=== PATIENT | female | born 1950 ===

== ENCOUNTER → 2020-02-24 13:49 | Outpatient (BNVA) | payer MEDICARE, SELFPAY | PROVIDERS: PCP Internal Medicine Geriatric Medicine; Visit Provider Physician Assistant | DX: Z09 Encounter for follow-up examination after completed treatment for conditions other than malignant neoplasm (principal) | CPT/HCPCS: 99212 ==

== ENCOUNTER 2020-03-07 13:35 | Emergency (ER) | payer MEDICARE, SELFPAY ==
--- NOTE | 2020-03-07 15:24 | ED.BACK ---
HPI - Back Pain/Injury General Chief Complaint: Back Pain/Injury Stated Complaint: BACK PAIN Time Seen by Provider: 03/07/20 15:08 Source: patient Mode of arrival: ambulatory Limitations: no limitations History of Present Illness HPI Narrative: 69-year-old female presenting to the ED with complaints of lower back pain radiating to her right lower extremity for the past few days worse today. Reports that this is similar to her prior lumbar radiculopathy. Reports she has been taking [id number] naproxen and no symptomatic relief. Reports she ran out of Flexeril. Denies any other symptoms complaints or concerns at this time. Related Data Home Medications Medication Instructions Recorded Confirmed budesonide 0.5 mg/2 mL suspension mg INHALATION 02/16/20 for nebulization diclofenac sodium 1 % topical gel 2 g TOPICAL BID 02/16/20 naproxen 500 mg tablet 500 mg PO BID 02/16/20 tramadol 50 mg tablet 0 mg PO 02/16/20 zolpidem 10 mg tablet 10 mg PO BEDTIME 02/16/20 Previous Rx's Medication Instructions Recorded cyclobenzaprine 10 mg PO TID PRN #14 tab 03/07/20 lidocaine [Lidoderm] 1 patch TOPICAL DAILY #30 ea NS 03/07/20 naproxen 500 mg PO BID PRN #14 tab 03/07/20 oxycodone-acetaminophen [Percocet] 1 tab PO Q6H PRN #14 tab 03/07/20 Allergies Allergy/AdvReac Type Severity Reaction Status Date / Time No Known Allergies Allergy Verified 02/16/20 14:05 Review of Systems Review of Systems: Denies: Trauma; FCS; Rash; H/A; CP; SOB; Neck Pain; N/V; UTI sx; Hematuria; Bowel/Bladder Incont; Focal weakness; Numbness; Radiation; Extr pain or swelling Yes all other systems are reviewed and are negative [facility]LY [facility] Past Medical History Attestation statement: The following information was validated with the patient. Family History Family History Mother Alzheimer disease Hypertension Dementia Father Hypertension Social History Social History Advance Directives: No Advance Directives Information Provided: No Physical Exam Vital Signs: Vital Signs: vital signs have been reviewed as normal and appeared to be correct. Blood pressure normal. Heart rate normal. Respiration rate normal. Temperature normal. Oxygen saturation normal. Appearance: Alert. Oriented X3. No acute distress. Head: Normal external exam. Normocephalic. Atraumatic. No [place] signs noted. No raccoon eyes noted Eyes: PERRLA. EOMI. Conjunctiva and sclera normal. Eyelids normal. ENT: EAC normal. TM's Normal. Pharynx normal. Uvula midline. Moist mucous membranes. No trismus noted. No drooling noted. No muffled voice noted. Neck: Normal inspection. Neck supple. FROM. No adenopathy. Thyroid Normal. No meningeal signs. No neck mass noted. CVS: Normal heart rate and rhythm. Heart sound normal. No murmurs noted. Pulses normal throughout. Respiratory: No respiratory distress. Painless inspiration. Breath sounds normal. No wheezes/rales/rhonchi noted. Chest nontender. No accessory muscle usage noted or decreased air movement noted. Abdomen: Soft and nontender. Bowel sounds normal in all 4 quadrants. No distention noted. No organomegaly noted. No visible injury noted. Back: No CVA tenderness. Full range of motion noted. No obvious deformities, or edema. Mild para-spinal muscular tenderness from lumbar region to coccyx. Full ROM in back and lower extremities. 5/5 strength hip extension/flexion, abduction, adduction. Mild Lumbar pain with hip flexion against resistance. Straight leg raise test positive on right; Straight leg raise test negative on left; Reflexes normal ankle and knee bilaterally; EHL motor strength normal bilaterally Skin: Skin warm and dry. Normal skin color. Normal skin turgor. No rashes/lesions/lacerations noted. Extremities: No lower extremity edema. Extremities exhibit normal range of motion. Extremities nontender. Neuro: Oriented X 3. No motor deficit. No sensory deficit. Reflexes normal. Course Course Course Narrative: Pt c likely muscular pain, but could be herniated disc. Neuro exam shows no deficits. Not c/w AAA/epidural abscess/dissection.No high risk Hx (Incont, fever, immunosupp, recent surgery/LP, coag, signif trauma, wt loss, puls mass, hx/o Ca, TB, or IVDU) to warrant MRI/CT today. Not c/w Pyelo/UTI/kidney stone/spinal fx. Not cauda equina syndrome. Imaging not currently indicated. DC c meds and f/u. Discharge Plan Discharge Clinical Impression: Lumbar radiculopathy Patient Disposition: Home, Self-Care Instructions: Lumbar Radiculopathy (ED) Prescriptions: New cyclobenzaprine 10 mg tablet 10 mg PO TID PRN (Reason: muscle spasm) Qty: 14 RF: 0 naproxen 500 mg tablet 500 mg PO BID PRN (Reason: pain) Qty: 14 RF: 0 oxycodone-acetaminophen [Percocet] 5-325 mg tablet 1 tab PO Q6H PRN (Reason: pain) Qty: 14 RF: 0 lidocaine [Lidoderm] 5 % adhesive patch,medicated 1 patch topical DAILY Qty: 30 RF: 0 Referrals: Name,MD Martín [Primary Care Provider] - 2 days Print Language: Mozambican
[2020-03-07 15:41] VITALS: BP 130/70; PULSE 90; RESP 16; TEMP 36.3; O2SAT 98; BMI 29.2
== END 2020-03-07 15:54 | disposition home or self-care (01) ==
PROVIDERS: Emergency Provider Emergency Medicine; PCP Internal Medicine Geriatric Medicine
DX: M54.16 Radiculopathy, lumbar region (principal)
CPT/HCPCS: 99283; 99284

== ENCOUNTER 2020-06-08 14:55 | Outpatient (REF) | payer MEDICARE, SELFPAY ==
--- NOTE | 2020-06-08 16:00 | MR_ITS ---
MR LUMBAR SPINE WITHOUT CONTRAST CLINICAL INFORMATION: Chronic pain. COMPARISON: Lumbar spine radiographs 12/15/2019. TECHNIQUE: MRI of the lumbar spine was obtained using routine sequences without contrast. FINDINGS: There are 5 nonrib-bearing lumbar-type vertebral bodies. Lumbar alignment is normal. The vertebral body heights are maintained. The disc volumes are preserved. There is no bone marrow edema. There are no acute fractures. There is partial disc desiccation at the L2-L3, L3-L4, and L4-L5 levels. The conus terminates at the L1 level. There is bilateral perinephric stranding. There are no significant soft tissue findings. L1-L2: Disc contour is normal. No central canal stenosis and no foraminal stenosis. L2-L3: Disc contour is normal. No central canal stenosis and no foraminal stenosis. L3-L4: Disc contour is normal. Bilateral facet arthropathy and ligamentum flavum thickening. No central canal stenosis. Mild foraminal encroachment bilaterally. L4-L5: Small annular disc bulge and moderate bilateral facet arthropathy and ligamentum flavum thickening. No central canal stenosis. There is mild foraminal encroachment bilaterally. L5-S1: Small annular disc bulge and mild bilateral facet arthropathy. No central canal stenosis and no foraminal stenosis. MR/MR lumbar spine wo con IMPRESSION: Mild to moderate lumbar spondylosis. No severe central canal stenosis and no severe foraminal stenosis within the lumbar spine. No traversing or exiting nerve root compression.
== END 2020-06-08 14:56 | disposition home or self-care (01) ==
LOC: HO.MRI 14:55
PROVIDERS: Visit Provider Internal Medicine Geriatric Medicine
DX: M54.5 Low back pain (principal); G89.29 Other chronic pain
CPT/HCPCS: 72148

== ENCOUNTER → 2020-06-26 10:50 | Outpatient (BNVA) | payer MEDICARE, SELFPAY | PROVIDERS: PCP Internal Medicine Geriatric Medicine; Visit Provider Orthopaedic Surgery | DX: M79.642 Pain in left hand (principal) | CPT/HCPCS: 99202 ==

== ENCOUNTER 2020-06-28 15:05 | Outpatient (REF) | payer MEDICARE, SELFPAY ==
--- NOTE | ~2020-06-28 | XR_ITS ---
EXAMINATION: XR KNEE, RIGHT CLINICAL INFORMATION: Pain COMPARISON: Previous x-ray November 2019 TECHNIQUE: Three views of the right knee. FINDINGS: Bones and soft tissues are normal. No fracture or joint effusion. Alignment is anatomic. Joint spaces are well maintained. No abnormal soft tissue calcification. XR/XR knee RT 3V IMPRESSION: Normal right knee.
== END 2020-06-28 15:06 | disposition home or self-care (01) ==
LOC: HO.XRAY 15:05
PROVIDERS: PCP Internal Medicine Geriatric Medicine; Visit Provider Student in an Organized Health Care Education/Training Program
DX: M25.561 Pain in right knee (principal)
CPT/HCPCS: 20610; 73562; 99212

== ENCOUNTER 2020-07-05 09:22 | Outpatient (REF) | payer MEDICARE, SELFPAY ==
--- NOTE | ~2020-07-05 | XR_ITS ---
EXAMINATION: XR HAND, LEFT CLINICAL INFORMATION: Left hand pain. Prior [facility] arthroplasty 03/24/2019. COMPARISON: Radiographs left hand 09/14/2019 TECHNIQUE: Left hand is imaged in 4 views. FINDINGS: Small orthopedic plates overlying first and second metacarpals are no longer present. There are 2 punctate metallic soft tissue foreign bodies dorsum hand again seen between second and third metacarpals. There is been prior resection trapezium. Spurring base first metacarpal and distal lateral navicular pole are stable. There is no acute or healing fracture or dislocation or destructive process. No interval joint narrowing or erosive change. Mild narrowing fifth finger PIP and DIP joints again present. XR/XR hand LT min 3V IMPRESSION: 1. No acute or healing fracture or dislocation or destructive process. 2. Postsurgical changes. Hardware overlying first and second metacarpals no longer present.
== END 2020-07-05 09:23 | disposition home or self-care (01) ==
LOC: HO.HOSX 09:22
PROVIDERS: Visit Provider Orthopaedic Surgery
DX: M79.642 Pain in left hand (principal); Z98.890 Other specified postprocedural states
CPT/HCPCS: 73130; J1020; Q3014

== ENCOUNTER → 2020-07-31 19:10 | Outpatient (REF) | payer MEDICARE, SELFPAY | LOC: HO.SL 19:10 | PROVIDERS: PCP Internal Medicine Geriatric Medicine; Visit Provider Internal Medicine Geriatric Medicine | DX: G47.33 Obstructive sleep apnea (adult) (pediatric) (principal); R06.83 Snoring; R40.0 Somnolence | CPT/HCPCS: 95810 ==

== ENCOUNTER → 2020-11-17 13:30 | Outpatient (BNVA) | payer MEDICARE, SELFPAY | PROVIDERS: PCP Internal Medicine Geriatric Medicine; Visit Provider Student in an Organized Health Care Education/Training Program | DX: M25.561 Pain in right knee (principal); M17.11 Unilateral primary osteoarthritis, right knee; Z79.899 Other long term (current) drug therapy | CPT/HCPCS: 20610; 99212 ==

== ENCOUNTER 2021-02-02 08:43 | Outpatient (REF) | payer MEDICARE, SELFPAY ==
--- NOTE | ~2021-02-02 | MR_ITS ---
EXAMINATION: MR KNEE WITHOUT CONTRAST, RIGHT CLINICAL INFORMATION: Pain in right knee. Patient reports anterior right knee pain for 3-4 years, status post injection 6 months ago, and no recent injury. COMPARISON: XR right knee 06/28/2020. TECHNIQUE: MRI of the knee without contrast was performed using routine sequences on a high-field scanner. FINDINGS: MENISCI: Medial Meniscus: There is a horizontal and slightly oblique tear of the posterior horn of the medial meniscus extending to the junction with the body. The tear involves the inner margin inferior surface of the posterior horn. At the junction of the posterior horn and body, the tear involves the peripheral inferior surface. There is some fraying of the free edge of the junction of the posterior horn and root with a possible small flap-type tear (series 5, image 17). Lateral Meniscus: There is a small free edge tear of the body of the lateral meniscus. LIGAMENTS: Cruciate: Intact Collateral: There is slight thickening and mild signal abnormality in the proximal medial collateral ligament consistent with a mild sprain of indeterminate age. There is some intermediate signal in poor definition of the origin of the fibular collateral ligament suggesting a mild sprain of indeterminate age but likely chronic. The lateral supporting structures are otherwise intact. EXTENSOR MECHANISM: Intact. ARTICULAR CARTILAGE/BONE: Patellofemoral Compartment: There are some focal areas of mild cartilage thinning in the medial and lateral facets of the patella. There is patchy mild cartilage thinning in the femoral trochlea. Medial Compartment: Normal. Lateral Compartment: Normal. JOINT FLUID AND BURSAE: Normal. MR/MR knee RT wo con IMPRESSION: 1. Undersurface tear of the posterior horn and body of the medial meniscus. Fraying and possible small flap-type tear of the free edge of the junction of the posterior horn and root. 2. Small free edge tear of the body of the lateral meniscus. 3. Proximal medial and fibular collateral ligament sprains of indeterminate age but likely chronic. 4. Mild patellofemoral arthrosis.
== END 2021-02-02 08:44 | disposition home or self-care (01) ==
LOC: HO.MRI 08:43
PROVIDERS: PCP Internal Medicine Geriatric Medicine; Visit Provider Student in an Organized Health Care Education/Training Program
DX: M25.561 Pain in right knee (principal)
CPT/HCPCS: 73721

== ENCOUNTER → 2021-02-23 07:51 | Outpatient (BNVA) | payer MEDICARE, SELFPAY | PROVIDERS: Visit Provider Physician Assistant | DX: M17.11 Unilateral primary osteoarthritis, right knee (principal) | CPT/HCPCS: 20610; 99212; J1040 ==

== ENCOUNTER 2021-02-27 13:44 | Outpatient (REF) | payer MEDICARE, SELFPAY ==
--- NOTE | ~2021-02-27 | MM_ITS ---
EXAMINATION: MM SCREENING DIGITAL BREAST TOMOSYNTHESIS, BILATERAL CLINICAL INFORMATION: Screening. Asymptomatic. The lifetime risk of breast cancer based on the Tyrer-Cuzick Model is 5%. COMPARISON: Mammography: December 10, 2019 and studies dating back to September 16, 2013 TECHNIQUE: Digital breast tomosynthesis is performed in both the craniocaudal and mediolateral oblique views along with computer-aided detection (CAD). Synthesized 2D images are generated from the tomosynthesis. FINDINGS: There are scattered areas of fibroglandular density (ACR BI-RADS breast composition Category b). There are no significant masses, abnormal calcifications, or other abnormalities. MM/MM tomosynthesis screening BI IMPRESSION: There are no significant changes from prior study. ASSESSMENT: BI-RADS 1: Negative RECOMMENDATION: Routine annual mammography screening. This patient's information was entered into a reminder system with a target due date for their next mammogram.
== END 2021-02-27 13:45 | disposition home or self-care (01) ==
LOC: HO.MAMMO 13:44
PROVIDERS: PCP Internal Medicine Geriatric Medicine; Visit Provider Internal Medicine Geriatric Medicine
DX: Z12.31 Encounter for screening mammogram for malignant neoplasm of breast (principal)
CPT/HCPCS: 77063; 77067

== ENCOUNTER 2021-05-17 12:57 | Emergency (ER) | payer MEDICARE, SELFPAY ==
--- NOTE | ~2021-05-17 | XR_ITS ---
EXAMINATION: XR SHOULDER, LEFT CLINICAL INFORMATION: Pain with limited range of motion. COMPARISON: Radiograph of the left shoulder dated from 03/19/2017. TECHNIQUE: Three views of the left shoulder. FINDINGS: No acute fractures or malalignment. There is mild arthrosis of the acromioclavicular and glenohumeral joints. The surrounding soft tissues are normal. XR/XR shoulder LT min 2V IMPRESSION: Mild arthrosis without acute fractures or malalignment.
[2021-05-17 13:44] VITALS: BP 147/85; PULSE 74; RESP 18; TEMP 36.1; O2SAT 98; BMI 29.5
== END 2021-05-17 20:09 | disposition left against medical advice (07) ==
PROVIDERS: Emergency Provider Emergency Medicine; PCP Internal Medicine Geriatric Medicine
DX: M25.512 Pain in left shoulder (principal)
CPT/HCPCS: 73030; 99282; 99283

== ENCOUNTER 2021-10-05 12:33 | Emergency (ER) | payer MEDICARE, SELFPAY ==
--- NOTE | ~2021-10-05 | CT_ITS ---
EXAMINATION: CT HEAD WITHOUT CONTRAST CLINICAL INFORMATION: Ataxia, headache and weakness COMPARISON: Previous head CT from 2013 TECHNIQUE: Contiguous axial imaging was performed from the skull base to vertex without intravenous administration of contrast. This CT examination was performed using dose optimization techniques as appropriate, variously including the following: *Automated exposure control *Adjustment of mA and/or kV according to patient size (this includes techniques or standardized protocols for targeted exams where dose is matched to indication/reason for exam; i.e. extremities or head) *Use of iterative reconstruction technique DLP: 590 mGy-cm FINDINGS: There is no evidence of acute intracranial hemorrhage or territorial infarction. No abnormal mass effect or midline shift is seen. Ansari to white matter differentiation is well preserved. No extra-axial fluid collections are identified. The ventricles are normal in size. There is no abnormal attenuation within the brain parenchyma. The osseous structures and soft tissues are normal. The mastoid air cells and visualized portions of the paranasal sinuses are well aerated. CT/CT head/brain wo con IMPRESSION: Unremarkable exam.
[2021-10-05 12:37] VITALS: BP 188/93; PULSE 59; RESP 18; TEMP 36.8; O2SAT 100; BMI 30.2
--- NOTE | 2021-10-05 12:48 | ED_ITS ---
HPI - Dizziness General Chief Complaint: Dizziness Stated Complaint: Dizziness/Nausea/Weakness Time Seen by Provider: 10/05/21 12:46 Source: patient Mode of arrival: wheelchair Limitations: no limitations History of Present Illness HPI Narrative: 70 yo female with history of osteoarthritis, tendonitis who presents to the ER from home with acute onset of dizziness when she woke up this morning at 10am. She was in her normal state of health when she went to bed last night. She states when she woke up and sat up on the end of her bed she had sensation of the room spinning and this was associated with nausea and a slight headache and photosensitivity. She felt generally weak and unsteady on her feet. She reports some generalized body aches as well. She denies any focal weakness, numbness or tingling. She denies any speech or swallowing problems. She has never had dizziness like this before. On arrival to the ER patient had to be put in a wheelchair because of her dizziness. She has some photosensitivity and nausea but has not vomited. She is hypertensive 188/93 - she is not on any anti-hypertensives and reports her BP has been elevated on doctor visits and it has been normal at times as well so she was not started on any meds. MD elicited complaint: dizziness and other (headache) Onset (ago): hour(s) (3) Timing: sudden onset Severity: moderate Description: room spinning History of similar symptoms: No Exacerbating factors: movement/ambulation and change in body position Relieving factors: nothing Associated symptoms: nausea and weakness Related Data Home Medications Medication Instructions Recorded Confirmed budesonide 0.5 mg/2 mL suspension mg INHALATION 02/16/20 11/17/20 for nebulization diclofenac sodium 1 % topical gel 2 g TOPICAL BID 02/16/20 11/17/20 zolpidem 10 mg tablet 10 mg PO BEDTIME 02/16/20 11/17/20 acetaminophen 650 mg 650 mg PO Q12H PRN 11/17/20 11/17/20 tablet,extended release (Tylenol Arthritis Pain) Previous Rx's Medication Instructions Recorded cyclobenzaprine 10 mg tablet 10 mg PO TID PRN #14 tab 03/07/20 naproxen 500 mg tablet 500 mg PO BID PRN #14 tab 03/07/20 meclizine 25 mg tablet 25 mg PO BID PRN #10 tab 10/05/21 Allergies Allergy/AdvReac Type Severity Reaction Status Date / Time No Known Allergies Allergy Verified 02/23/21 08:02 Review of Systems Review of Systems: Constitutional: No Fever, No Chills ENT/Mouth: No sore throat, No Rhinorrhea, No Swallowing Difficulty Eyes: No Eye Pain, No Swelling, No Redness, No vision changes Cardiovascular: No Chest Pain, No SOB, No Orthopnea, No Edema Respiratory: No Cough, No Sputum, No Wheezing, No dyspnea Gastrointestinal: + Nausea, No Vomiting, No Diarrhea, No abdominal Pain, No Hematochezia, No Melena Genitourinary: No Dysuria, No Urinary Frequency, No Hematuria Musculoskeletal: No joint pain, No Myalgias Skin: No Skin Lesions, No rash Neuro: + Weakness, No Numbness, + Dizziness, + Headache Psych: No Anxiety/Panic, No Depression Heme/Lymph: No Bruising, No Lymphadenopathy Endocrine: No Polyuria, No Polydipsia PMFSH Past Medical History Medical History (Updated 10/05/21 @ 15:49 by YOON Almeida) Arthritis Family History Family History Mother Alzheimer disease Hypertension Dementia Father Hypertension Social History Social History (Updated 02/23/21 @ 08:02 by Diallo Angulo) Alcohol intake: never Patient Tobacco Use Status: Never used Tobacco e-Cigarette/Vaping Use: Never Used Advance Directives: Yes Advance Directives Information Provided: Yes Advance Directives on File: No Current occupational status: retired Current occupation: rt handed Physical Exam Vital Signs: Vital Signs: Last Vital Signs Temp 98.3 F 10/05/21 12:37 Pulse 68 10/05/21 16:03 Resp 16 10/05/21 16:03 BP 168/78 H 10/05/21 16:03 Pulse Ox 100 10/05/21 13:04 BMI result Body Mass Index 30.2 Appearance: Alert. Oriented X3. No acute distress. Eyes: Pupils equal, round and reactive to light. EOMI, no nystagmus. ENT: Pharynx normal. Tympanic membranes are normal bilaterally. Neck: Normal inspection. Neck supple. CVS: Normal heart rate and rhythm. Pulses normal. Respiratory: No respiratory distress. Breath sounds normal. Abdomen: Soft and nontender. +BS x4 Skin: Skin warm and dry. Normal skin color. Normal skin turgor. No rashes. Extremities: No lower extremity edema. Neuro: Oriented X 3. No motor deficit. No sensory deficit. Strength equal and symmetrical throughout. Patient steady on her feet with assist of 1. Speech and cognition are normal, cranial nerves 2-12 are intact. Course Course Course Narrative: 70-year-old female with no significant medical history presents to the ER with acute onset of dizziness, headache with photosensitivity and nausea when she woke up this morning. Her neuro exam is nonfocal. NIH of 0. She is hypertensive on arrival with systolic blood pressures in the 180s, no history of hypertension. Will get CT scan of her head, metabolic workup, with attic vital signs, check COVID and flu. She feels like the room is spinning, will treat for possible vertigo and reassess. Low suspicion for posterior stroke given her other symptoms including generalized weekends, body aches, photosensitivity, nausea. Reevaluation(s) Reevaluation #1: CT head is normal. Labs are normal. She was treated with meclizine and Zofran with significant improvement. She is steady on her feet and feels better. Her blood pressure improved on its own. At this time she is stable for discharge home with p.r.n. meclizine and outpatient follow-up. She was advised come back to the ER for dizziness worsened, or if she were to develop any other concerning signs or symptoms. [facility] - Dizziness Medical Records Attestation: I reviewed the patient's medical records. Lab Data Attestation: I reviewed the patient's lab results. Result diagrams: 10/05/21 13:12 10/05/21 13:12 Labs: Lab Results 10/05/21 10/05/21 10/05/21 Range/Units 13:06 13:06 13:12 WBC 7.4 (4.8-10.8) X10*3/uL RBC 4.42 (4.20-5.50) X10*6/uL Hgb 12.4 (12.0-16.0) g/dl Hct 37.7 (37.0-47.0) % MCV 85.3 (80.0-98.0) fL MCH 28.1 (27.0-33.0) pg MCHC 32.9 (31.0-35.0) g/dl RDW 13.0 (11.0-16.0) % Plt Count 302 (160-400) X10*3/uL MPV 8.7 L (9.4-12.3) fL Immature Gran % (Auto) 0.4 (0.0-0.4) % Neut % (Auto) 74.9 H (45-73) % Lymph % (Auto) 17.4 L (20-40) % [place] % (Auto) 5.3 (2-11) % Eos % (Auto) 1.6 (0-4) % Baso % (Auto) 0.4 (0-2) % Lymph # (Auto) 1.3 (1.2-4.9) X10*3/uL [place] # (Auto) 0.4 (0.1-1.2) X10*3/uL Eos # (Auto) 0.1 (0.0-0.4) X10*3/uL Baso # (Auto) 0.0 (0.0-0.2) X10*3/uL Abs Immat Gran (auto) 0.03 (0.00-0.03) X10*3/uL Absolute Neuts (auto) 5.6 (2.0-8.3) x10*3/uL Absolute Nucleated RBC 0.000 (0.0-0.012) X10*3/uL Nucleated RBC % (auto) 0.0 (0.0-0.2) /100WBC Sodium (135-145) mmol/L Potassium (3.3-5.1) mmol/L Chloride (96-108) mmol/L Carbon Dioxide (22-29) mmol/L Anion Gap (12-20) BUN (9-16) mg/dL Creatinine (0.5-1.4) mg/dL Estim Creat Clear Calc Estimated GFR Random Glucose (60-115) mg/dL Calcium (8.4-10.2) mg/dL Magnesium (1.6-2.6) mg/dL Total Bilirubin (0.0-1.0) mg/dL Direct Bilirubin (0.0-0.5) mg/dL AST (5-31) U/L ALT (0-31) U/L Alkaline Phosphatase (39-117) U/L Total Protein (6.5-8.0) g/dL Albumin (3.5-5.0) g/dL COVID-19 (ENZO) Negative (Negative) COVID-19 Clin Com See Note Influenza Type A (ANASTASIIA) Negative (Negative) Influenza Type B (ANASTASIIA) Negative (Negative) Influenza A & B Note See Note 10/05/21 Range/Units 13:12 WBC (4.8-10.8) X10*3/uL RBC (4.20-5.50) X10*6/uL Hgb (12.0-16.0) g/dl Hct (37.0-47.0) % MCV (80.0-98.0) fL MCH (27.0-33.0) pg MCHC (31.0-35.0) g/dl RDW (11.0-16.0) % Plt Count (160-400) X10*3/uL MPV (9.4-12.3) fL Immature Gran % (Auto) (0.0-0.4) % Neut % (Auto) (45-73) % Lymph % (Auto) (20-40) % [place] % (Auto) (2-11) % Eos % (Auto) (0-4) % Baso % (Auto) (0-2) % Lymph # (Auto) (1.2-4.9) X10*3/uL [place] # (Auto) (0.1-1.2) X10*3/uL Eos # (Auto) (0.0-0.4) X10*3/uL Baso # (Auto) (0.0-0.2) X10*3/uL Abs Immat Gran (auto) (0.00-0.03) X10*3/uL Absolute Neuts (auto) (2.0-8.3) x10*3/uL Absolute Nucleated RBC (0.0-0.012) X10*3/uL Nucleated RBC % (auto) (0.0-0.2) /100WBC Sodium 139 (135-145) mmol/L Potassium 4.4 (3.3-5.1) mmol/L Chloride 107 (96-108) mmol/L Carbon Dioxide 25 (22-29) mmol/L Anion Gap 11 L (12-20) BUN 14 (9-16) mg/dL Creatinine 0.81 (0.5-1.4) mg/dL Estim Creat Clear Calc 55.7 Estimated GFR > 60 Random Glucose 145 H (60-115) mg/dL Calcium 9.4 (8.4-10.2) mg/dL Magnesium 2.0 (1.6-2.6) mg/dL Total Bilirubin 0.4 (0.0-1.0) mg/dL Direct Bilirubin < 0.2 (0.0-0.5) mg/dL AST 13 (5-31) U/L ALT 14 (0-31) U/L Alkaline Phosphatase 62 (39-117) U/L Total Protein 7.4 (6.5-8.0) g/dL Albumin 4.2 (3.5-5.0) g/dL COVID-19 (ENZO) (Negative) COVID-19 Clin Com Influenza Type A (ANASTASIIA) (Negative) Influenza Type B (ANASTASIIA) (Negative) Influenza A & B Note Critical Care Time Critical Care Time Critical Care Time: No Discharge Plan Discharge Clinical Impression: Headache, Dizziness Patient Disposition: Home, Self-Care Instructions: Acute Headache (DC), Dizziness (ED) Additional Instructions: Your CT scan today was normal. Your labs workup was unremarkable. Take the prescribed medication as needed for dizziness. Recommend taking Motrin and or Tylenol as needed for headaches. Rest and drink plenty of fluids. Follow-up with your doctor next week If you develop new or worsening symptoms call 911 or come back to the ER for further evaluation. Prescriptions: New meclizine 25 mg tablet 25 mg PO BID PRN (Reason: dizziness) Qty: 10 0RF No Action cyclobenzaprine 10 mg tablet 10 mg PO TID PRN (Reason: muscle spasm) Qty: 14 0RF naproxen 500 mg tablet 500 mg PO BID PRN (Reason: pain) Qty: 14 0RF budesonide 0.5 mg/2 mL suspension for nebulization inhalation 0RF diclofenac sodium 1 % gel 2 g topical BID 0RF zolpidem 10 mg tablet 10 mg PO BEDTIME 0RF acetaminophen [Tylenol Arthritis Pain] 650 mg tablet extended release 650 mg PO Q12H [id number] Interventions: ED Discharge Assessment Last Done: 10/05/21 16:04 Discharge Date/Time: 10/05/21 16:08
[2021-10-05 13:04] VITALS: BP 164/92; PULSE 57; RESP 16; O2SAT 100
[2021-10-05] MEDS: 0.9 % Sodium Chloride 1,000 ML 999 ML IVCONT (13:12)
[2021-10-05 13:16] LABS: MANUAL DIFF FLAG NO
[2021-10-05 13:25] LABS: Basophils Percent Auto 0.4 % (0-2); Eosinophils Absolute Auto 0.1 X10*3/uL (0.0-0.4); Eosinophils Percent Auto 1.6 % (0-4); Hematocrit 37.7 % (37.0-47.0); Hemoglobin 12.4 g/dl (12.0-16.0); Imm Gran Abs Auto 0.03 X10*3/uL (0.00-0.03); Imm Gran Pct Auto 0.4 % (0.0-0.4); Lymphocytes Absolute Auto 1.3 X10*3/uL (1.2-4.9); Lymphocytes Percent Auto 17.4 % (20-40); Mean Corpuscular HGB Conc 32.9 g/dl (31.0-35.0); Mean Corpuscular Hemoglobin 28.1 pg (27.0-33.0); Mean Corpuscular Volume 85.3 fL (80.0-98.0); Mean Platelet Volume 8.7 fL (9.4-12.3); Monocytes Absolute Auto 0.4 X10*3/uL (0.1-1.2); Monocytes Percent Auto 5.3 % (2-11); Neutrophils Absolute Auto 5.6 x10*3/uL (2.0-8.3); Neutrophils Percent Auto 74.9 % (45-73); Platelet Count 302 X10*3/uL (160-400); Red Blood Count 4.42 X10*6/uL (4.20-5.50); White Blood Count 7.4 X10*3/uL (4.8-10.8)
[2021-10-05 13:33] LABS: Influenza A Negative (Negative); Influenza B2 Negative (Negative)
[2021-10-05 13:34] LABS: COVID-19 Test Negative (Negative); IDNOW Serial# 55D5AD1C
[2021-10-05 13:44] LABS: Alanine Aminotransferase 14 U/L (0-31); Albumin Level 4.2 g/dL (3.5-5.0); Alkaline Phosphatase 62 U/L (39-117); Anion Gap 11 (12-20); Aspartate Amino Transferase 13 U/L (5-31); Bilirubin Direct < 0.2 mg/dL (0.0-0.5); Bilirubin Total 0.4 mg/dL (0.0-1.0); Blood Urea Nitrogen 14 mg/dL (9-16); Calcium 9.4 mg/dL (8.4-10.2); Carbon Dioxide 25 mmol/L (22-29); Chloride 107 mmol/L (96-108); Creatinine Clr Calc Pharmacy 55.7; Estimated Glomerular Filt Rate > 60; Glucose Random 145 mg/dL (60-115); Potassium 4.4 mmol/L (3.3-5.1); Sodium 139 mmol/L (135-145); Total Protein 7.4 g/dL (6.5-8.0)
[2021-10-05] MEDS: Meclizine HCl 25 MG TABLET 50 MG PO (14:31)
[2021-10-05] MEDS: ondansetron HCL 4 MG/2 ML VIAL IVPUSH (14:31)
[2021-10-05 16:03] VITALS: BP 168/78; PULSE 68; RESP 16
== END 2021-10-05 16:08 | disposition home or self-care (01) ==
PROVIDERS: Physician Assistant; Emergency Provider Emergency Medicine Emergency Medical Services; PCP Internal Medicine Geriatric Medicine
DX: R42 Dizziness and giddiness (principal); R51.9 Headache, unspecified; R03.0 Elevated blood-pressure reading, without diagnosis of hypertension; Z20.822 Contact with and (suspected) exposure to COVID-19
CPT/HCPCS: 70450; 80048; 80076; 83735; 85025; 87502; 87635; 96361; 96374; 99281; 99284; J2405

== ENCOUNTER 2021-10-08 08:04 | Outpatient (REF) | payer OTHER, SELFPAY ==
--- NOTE | ~2021-10-08 | XR_ITS ---
EXAMINATION: KNEE X-RAY CLINICAL INFORMATION: Pain COMPARISON: Previous x-rays from 2019 2020 TECHNIQUE: Standing AP view of both knees and lateral and sunrise view of the right knee FINDINGS: Right: Bone alignment is normal. No fracture or dislocation is seen. Joint spaces are normal. There is no joint effusion. Standing AP view of the left knee is unremarkable. XR/XR knee RT 2V IMPRESSION: Unremarkable exam.
--- NOTE | ~2021-10-08 | XR_ITS ---
EXAMINATION: KNEE X-RAY CLINICAL INFORMATION: Pain COMPARISON: Previous x-rays from 2019 2020 TECHNIQUE: Standing AP view of both knees and lateral and sunrise view of the right knee FINDINGS: Right: Bone alignment is normal. No fracture or dislocation is seen. Joint spaces are normal. There is no joint effusion. Standing AP view of the left knee is unremarkable. XR/XR knee standing BI IMPRESSION: Unremarkable exam.
== END 2021-10-08 08:05 | disposition home or self-care (01) ==
LOC: HO.HOSX 08:04
PROVIDERS: Visit Provider Physician Assistant
DX: M17.0 Bilateral primary osteoarthritis of knee (principal)
CPT/HCPCS: 20610; 73560; 73565; 99212; J1040

== ENCOUNTER 2021-11-05 11:44 | Emergency (ER) | payer OTHER, SELFPAY ==
--- NOTE | 2021-11-05 | ECG_ITS ---
Test Reason : left arm numbness Blood Pressure : / mmHG Vent. Rate : 076 BPM Atrial Rate : 076 BPM P-R Int : 120 ms QRS Dur : 066 ms QT Int : 380 ms P-R-T Axes : 039 -04 031 degrees QTc Int : 427 ms Normal sinus rhythm Low voltage QRS Cannot rule out Anterior infarct (cited on or before 05-NOV-2021) Abnormal ECG When compared with ECG of 27-MAR-2019 11:33, No significant change was found Referred By: Generic ED Physician Electronically Signed By:OSCAR LANDIN MD
--- NOTE | ~2021-11-05 | CT_ITS ---
EXAMINATION: CT ANGIOGRAM NECK CLINICAL INFORMATION: Neck pain, gait disturbance and visual changes. COMPARISON: CT scan of the head and cervical spine earlier 11/05/2021. TECHNIQUE: Test bolus series followed by intravenous administration 17 mL of Omnipaque 350. Helical imaging was performed in the axial plane from the mediastinum to the skull vertex. A delayed postcontrast CT scan of the head was obtained. The degree of stenosis is based off NASCET criteria. The data was processed at the dairy manufacturing technologist workstation for generation of MIP images. Three-dimensional volume rendered reformatted images were also generated at an offline 3-D workstation. This CT examination was performed using dose optimization techniques as appropriate, variously including the following: *Automated exposure control *Adjustment of mA and/or kV according to patient size (this includes techniques or standardized protocols for targeted exams where dose is matched to indication/reason for exam; i.e. extremities or head) *Use of iterative reconstruction technique DLP: 1464 mGy-cm. FINDINGS: CT Head: There is no evidence of acute intracranial hemorrhage or territorial infarction. No abnormal mass-effect or midline shift is seen. Ansari to white matter differentiation is well preserved. No extra-axial fluid collections are identified. There is no abnormal enhancement. The ventricles are normal in size. Brain parenchymal attenuation is unremarkable. There are no acute osseous or soft tissue abnormalities. There is hyperostosis frontalis interna. The nasal septum is deviated to the right and there is a right-sided bony nasal septal spur. The mastoid air cells and visualized portions of the paranasal sinuses are well-aerated. CTA Neck: There is a classic configuration of the arch of the aorta. There are minimal atheromatous calcifications of the aortic arch. There are mild atheromatous calcifications at the origin of the left common carotid artery. The subclavian arteries are patent. The common carotid arteries are patent bilaterally. There are mild atheromatous calcifications of the carotid bifurcations, but there are no significant stenoses. The internal carotid arteries are patent with uniform caliber extending intracranially. The origins of both vertebral arteries are well seen and appear normal. Both vertebral arteries are widely patent and demonstrate good opacification throughout their cervical course. The right vertebral artery is slightly dominant. Nonvascular: There is a 5 mm nodule along the pleura in the left upper lobe (image 111/119, series 5). There is a 5 mm calcified granuloma in the left upper lobe posterolaterally (image 106/119, series 5). The thyroid gland appears normal. There is no cervical lymphadenopathy. There are mild spondylitic and facet arthropathic changes in the cervical spine. The study redemonstrates a right tracheal diverticulum. CTA Head: The intracranial internal carotid arteries and their bifurcations appear normal. The middle and anterior cerebral arteries bilaterally demonstrate normal caliber with no evidence of focal stenosis, aneurysm or vascular malformation. There is normal arborization of the middle cerebral artery branches. There is an azygous A2 segment of anterior cerebral arteries, a normal variant In the posterior circulation, the right vertebral artery is dominant. The vertebral arteries intradurally have uniform caliber. The basilar artery appears normal. There is slight irregular caliber of the P1 segment of the left posterior cerebral artery. The right posterior cerebral artery has normal caliber. The venous sinuses opacify normally. CT/CT angio head neck IMPRESSION: CT head and neck: 1. There are no acute bleeds or territorial infarcts. There are no masses or areas of abnormal enhancement. 2. 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 3. There are 5 mm nodules in the left upper lobe. According to the UPDATED 2017 Fleischner Society recommendations, the advised follow-up imaging for solid nodules < 6 mm is: LOW RISK PATIENT: No routine follow-up. HIGH RISK PATIENT: Optional CT at 12 months. CTA head and neck: 1. There is mild atheromatous calcification at multiple levels in the neck, but there are no flow-limiting stenoses. 2. Intracranially there is mild narrowing of the P1 segment of the left posterior cerebral artery. Otherwise there are no focal stenoses, aneurysms or vascular malformations.
--- NOTE | ~2021-11-05 | CT_ITS ---
EXAMINATION: CT CERVICAL SPINE WITHOUT CONTRAST CLINICAL INFORMATION: Dizziness and neck pain COMPARISON: None TECHNIQUE: Axial images through the cervical spine without contrast. Sagittal and coronal reconstructions on the technologist workstation were performed. This CT examination was performed using dose optimization techniques as appropriate, variously including the following: *Automated exposure control *Adjustment of mA and/or kV according to patient size (this includes techniques or standardized protocols for targeted exams where dose is matched to indication/reason for exam; i.e. extremities or head) *Use of iterative reconstruction technique DLP: 341 mGy-cm FINDINGS: Bone alignment is normal. No fracture or dislocation is seen. There is degenerative spondylosis from C3-C4 to C6-C7. Disc spaces are normal. Prevertebral soft tissues are normal. 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 Superior mediastinum is otherwise normal. The visualized lung apices are clear. CT/CT cervical spine wo con IMPRESSION: Degenerative changes. Fleischner guidelines were followed.
--- NOTE | ~2021-11-05 | CT_ITS ---
EXAMINATION: CT HEAD WITHOUT CONTRAST CLINICAL INFORMATION: Dizziness and blurry vision COMPARISON: Previous head CT most recent September 2021 TECHNIQUE: Contiguous axial imaging was performed from the skull base to vertex without intravenous administration of contrast. This CT examination was performed using dose optimization techniques as appropriate, variously including the following: *Automated exposure control *Adjustment of mA and/or kV according to patient size (this includes techniques or standardized protocols for targeted exams where dose is matched to indication/reason for exam; i.e. extremities or head) *Use of iterative reconstruction technique DLP: 568 mGy-cm FINDINGS: There is no evidence of acute intracranial hemorrhage or territorial infarction. No abnormal mass effect or midline shift is seen. Ansari to white matter differentiation is well preserved. No extra-axial fluid collections are identified. The ventricles are normal in size. There is no abnormal attenuation within the brain parenchyma. The osseous structures and soft tissues are normal. The mastoid air cells and visualized portions of the paranasal sinuses are well aerated. CT/CT head/brain wo con IMPRESSION: Unremarkable exam.
[2021-11-05 11:50] VITALS: BP 147/90; PULSE 83; RESP 18; TEMP 36.8; O2SAT 97; BMI 29.2
[2021-11-05 12:05] LABS: MANUAL DIFF FLAG NO
[2021-11-05 12:07] LABS: Basophils Percent Auto 0.5 % (0-2); Eosinophils Absolute Auto 0.2 X10*3/uL (0.0-0.4); Eosinophils Percent Auto 2.3 % (0-4); Hematocrit 36.9 % (37.0-47.0); Hemoglobin 12.1 g/dl (12.0-16.0); Imm Gran Abs Auto 0.02 X10*3/uL (0.00-0.03); Imm Gran Pct Auto 0.3 % (0.0-0.4); Lymphocytes Absolute Auto 2.2 X10*3/uL (1.2-4.9); Lymphocytes Percent Auto 30.2 % (20-40); Mean Corpuscular HGB Conc 32.8 g/dl (31.0-35.0); Mean Corpuscular Hemoglobin 27.8 pg (27.0-33.0); Mean Corpuscular Volume 84.6 fL (80.0-98.0); Mean Platelet Volume 8.2 fL (9.4-12.3); Monocytes Absolute Auto 0.5 X10*3/uL (0.1-1.2); Monocytes Percent Auto 6.3 % (2-11); Neutrophils Absolute Auto 4.4 x10*3/uL (2.0-8.3); Neutrophils Percent Auto 60.4 % (45-73); Platelet Count 313 X10*3/uL (160-400); Red Blood Count 4.36 X10*6/uL (4.20-5.50); Red Cell Distribution Width 13.4 % (11.0-16.0); White Blood Count 7.3 X10*3/uL (4.8-10.8)
[2021-11-05 12:29] LABS: Anion Gap 13 (12-20); Blood Urea Nitrogen 18 mg/dL (9-16); Calcium 9.2 mg/dL (8.4-10.2); Carbon Dioxide 25 mmol/L (22-29); Chloride 106 mmol/L (96-108); Creatinine Clr Calc Pharmacy 50.2; Estimated Glomerular Filt Rate > 60; Glucose Random 106 mg/dL (60-115); Potassium 4.3 mmol/L (3.3-5.1); Sodium 140 mmol/L (135-145)
[2021-11-05 14:54] VITALS: BP 155/88; PULSE 62; RESP 18; TEMP 36.7; O2SAT 98
--- NOTE | 2021-11-05 15:12 | ED_ITS ---
HPI - General Adult General Chief complaint: General Medical Stated complaint: Head Pain Time Seen by Provider: 11/05/21 14:48 Source: patient Mode of arrival: ambulatory Limitations: language barrier History of Present Illness HPI narrative: 71-year-old female presents for 2 months of left-sided headache, left eye pain, left anterior neck pain radiating into left shoulder. The pain feels like a burning pain, in patient has felt intermittently dizzy. The pain is worse when she lies down. Patient has had blurry vision in her left eye. She uses reading glasses, does not use contacts. Patient has pain with eye movement. States she has felt intermittently dizzy for 2 months. States that her gait has been off balance for the last month. Denies chest pain, denies shortness of breath, denies falls, denies trauma, denies syncope or loss of consciousness. Patient is not on blood thinners. Related Data Home Medications Medication Instructions Recorded Confirmed budesonide 0.5 mg/2 mL suspension mg inhalation 02/16/20 11/17/20 for nebulization diclofenac sodium 1 % topical gel 2 g topical BID 02/16/20 11/17/20 zolpidem 10 mg tablet 10 mg PO BEDTIME 02/16/20 11/17/20 acetaminophen 650 mg 650 mg PO Q12H PRN 11/17/20 11/17/20 tablet,extended release (Tylenol Arthritis Pain) Previous Rx's Medication Instructions Recorded cyclobenzaprine 10 mg tablet 10 mg PO TID PRN muscle spasm #14 03/07/20 tabs naproxen 500 mg tablet 500 mg PO BID PRN pain #14 tabs 03/07/20 meclizine 25 mg tablet 25 mg PO BID PRN dizziness #10 tabs 10/05/21 prednisone 20 mg tablet 20 mg PO DAILY 9 days #18 tabs 11/05/21 Allergies Allergy/AdvReac Type Severity Reaction Status Date / Time No Known Allergies Allergy Verified 10/08/21 13:38 Review of Systems Constitutional: Constitutional: Denies body ache(s), Denies chills, Denies fatigue, Denies fever(s), Reports headache(s), Denies malaise and Denies weakness Eyes: Eyes: Reports blurry vision and Denies diplopia ENT: Reports Normal hearing present, Denies vertigo, Reports dizziness, Denies otalgia, Reports headache(s), Denies mouth pain, Reports neck pain, Denies post nasal drip, Denies sinus pain, Denies sinus pressure, Denies sore throat and Denies throat swelling Cardiovascular: Cardiovascular: Denies chest pain, Denies syncope, Denies leg edema, Denies lightheadedness, Denies Loss of Consciousness, Denies palpitations and Denies dyspnea Respiratory: Respiratory: Denies chest congestion, Denies cough and Denies dyspnea Gastrointestinal: Gastrointestinal: Denies abdominal pain, Denies hematochezia, Denies constipation, Denies diarrhea, Denies nausea and Denies vomiting Musculoskeletal: Musculoskeletal: Reports abnormal gait and Reports neck pain Neurologic: Reports Normal hearing present, Denies Abnormal speech present, Reports abnormal gait, Denies confusion, Denies vertigo, Reports dizziness, Denies syncope, Reports headache(s), Denies Sensory deficit (Neuro) and Denies weakness Psychiatric: Psychiatric: Denies anxiety, Denies confusion and Denies depression Endocrine: Endocrine: Denies fatigue and Denies palpitations Allergic/Immunologic: Allergic/Immunologic: Denies throat swelling PMFSH Past Medical History Medical History Arthritis Family History Family History Mother Alzheimer disease Hypertension Dementia Father Hypertension Social History Social History Alcohol intake: never Patient Tobacco Use Status: Never used Tobacco e-Cigarette/Vaping Use: Never Used Advance Directives: No Advance Directives Information Provided: No Current occupational status: retired Current occupation: rt handed Physical Exam ED Vital Signs: Vital Signs - 24 hr 11/05/21 11:50 11/05/21 14:54 Temperature 98.2 F 98.0 F Pulse Rate 83 62 Respiratory Rate 18 18 Blood Pressure 147/90 H 155/88 H Pulse Oximetry 97 98 Oxygen Delivery Method Room Air Room Air BMI result Body Mass Index 29.2 Const General: No confusion Nutritional Appearance: well nourished Orientation/consciousness: patient oriented x3 and No confusion Limitations: no limitations HENMT Head: Yes normal to inspection, Yes normocephalic and Yes atraumatic Ears: hearing grossly normal bilaterally, external ears normal, TM's normal bilaterally and EAC's normal General nose exam: Normal external nose present Face and sinus: Yes normal facial exam and Yes sinuses nontender Mouth: Normal oral and palatal mucosa present Throat: Yes posterior oropharynx normal Eyes Conjunctivae: conjunctivae normal Pupils: Equal, round and reactive pupils present EOM: EOMs intact bilaterally and No Nystagmus present Neck Neck: Yes full ROM, Yes no lymphadenopathy and Yes supple Resp Effort & Inspection: normal respiratory effort and able to speak in complete sentences Auscultation: clear to auscultation bilaterally, no crackles, no rales, no rhonchi and no wheezes Cardio Rate: regular rate Rhythm: regular rhythm Heart sounds: S1 normal heart sound present and S2 normal heart sound present GI Inspection: Yes normal to inspection Palpation (GI): Soft to palpation, nontender, no guarding and not rigid Percussion: Yes normal to percussion Auscultation: normal bowel sounds Skin General skin exam: no rashes or lesions noted Neuro General: patient oriented x3, gait normal and No confusion Cranial nerves: Yes CN's II-XII intact bilaterally, Yes Facial sensation intact/muscles of mastication intact, Yes Equal, round and reactive pupils present, Yes Normal accommodation reflex present, Yes Bilaterally intact EOM pr esent, Yes Nystagmus not present, Yes Normal facial strength present, Yes Midline tongue present, Yes Normal hearing present, Yes Ability to bilaterally rotate head present, Yes Ability to bilaterally elevate shoulders present and No Nystagmus present Cognition (Neuro): normal cognition Speech: No Abnormal speech present Gait exam (Neuro): Normal gait present Motor exam (neuro): 5/5 motor strength present throughout and Pronator motor function not present Sensory Exam: No Sensory deficit (Neuro) Deep tendon reflexes (DTR's): Right patellar reflex intensity grade: 1+ and Left patellar reflex intensity grade: 1+ Coordination: [id number] test normal and enum-lq-aloa test normal Pupils: Normal pupillary reactivity/response: bilateral Extrem General: Yes normal to inspection and Yes full ROM Psych Appearance: grossly normal Affect: normal affect Attitude: cooperative Thought process: Normal thought process present Course Course Course Narrative: 71-year-old female with a past medical history of arthritis, presents for 2 months of left-sided headache, blurry vision in left eye, neck pain, dizziness, and gait disturbance States her headache is 8/10, and is worse when she moves her head to the right. . On exam, patient has stable vitals, she has a benign neurological exam, she is able to walk with a normal gait, she does have pain with EOMs. Patient has visual williamson that are normal by confrontation, she has an NIH score of 0. Patient has visual acuity left eye 20/40, right eye 20/20. 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 Will get CTA of head and neck, and patient needs MRI to rule out posterior stroke if CTA of head and neck and MRI are negative, this is most likely a cervical radiculopathy. Patient can make the symptoms worse by turning her head to the right, precipitates pain in her left side of her neck. If imaging is negative, will prescribe prednisone. Discussed with Dr Boston, who says with no old stroke showing up on head CT, MR is not emergent. Dr Weathers called, also questioning why MR was ordered. Discussed with Dr Boston that patient is safe for discharge, as symptoms have been going on for months FINDINGS: There is no evidence of acute intracranial hemorrhage or territorial infarction. No abnormal mass effect or midline shift is seen. Ansari to white matter differentiation is well preserved. No extra-axial fluid collections are identified. The ventricles are normal in size. There is no abnormal attenuation within the brain parenchyma. The osseous structures and soft tissues are normal. The mastoid air cells and visualized portions of the paranasal sinuses are well aerated. CT/CT head/brain wo con IMPRESSION: Unremarkable exam. FINDINGS: Bone alignment is normal. No fracture or dislocation is seen. There is degenerative spondylosis from C3-C4 to C6-C7. Disc spaces are normal. Prevertebral soft tissues are normal. 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 Superior mediastinum is otherwise normal. The visualized lung apices are clear. CT/CT cervical spine wo con IMPRESSION: Degenerative changes.? CTA head and neck: 1. There is mild atheromatous calcification at multiple levels in the neck, but there are no flow-limiting stenoses. 2. Intracranially there is mild narrowing of the P1 segment of the left posterior cerebral artery. Otherwise there are no focal stenoses, aneurysms or vascular malformations. Medical Decision Making Lab Data Result diagrams: 11/05/21 12:00 11/05/21 12:00 Labs: Lab Results 11/05/21 11/05/21 Range/Units 12:00 12:00 WBC 7.3 (4.8-10.8) X10*3/uL RBC 4.36 (4.20-5.50) X10*6/uL Hgb 12.1 (12.0-16.0) g/dl Hct 36.9 L (37.0-47.0) % MCV 84.6 (80.0-98.0) fL MCH 27.8 (27.0-33.0) pg MCHC 32.8 (31.0-35.0) g/dl RDW 13.4 (11.0-16.0) % Plt Count 313 (160-400) X10*3/uL MPV 8.2 L (9.4-12.3) fL Immature Gran % (Auto) 0.3 (0.0-0.4) % Neut % (Auto) 60.4 (45-73) % Lymph % (Auto) 30.2 (20-40) % Emery % (Auto) 6.3 (2-11) % Eos % (Auto) 2.3 (0-4) % Baso % (Auto) 0.5 (0-2) % Lymph # (Auto) 2.2 (1.2-4.9) X10*3/uL Emery # (Auto) 0.5 (0.1-1.2) X10*3/uL Eos # (Auto) 0.2 (0.0-0.4) X10*3/uL Baso # (Auto) 0.0 (0.0-0.2) X10*3/uL Abs Immat Gran (auto) 0.02 (0.00-0.03) X10*3/uL Absolute Neuts (auto) 4.4 (2.0-8.3) x10*3/uL Absolute Nucleated RBC 0.000 (0.0-0.012) X10*3/uL Nucleated RBC % (auto) 0.0 (0.0-0.2) /100WBC Sodium 140 (135-145) mmol/L Potassium 4.3 (3.3-5.1) mmol/L Chloride 106 (96-108) mmol/L Carbon Dioxide 25 (22-29) mmol/L Anion Gap 13 (12-20) BUN 18 H (9-16) mg/dL Creatinine 0.87 (0.5-1.4) mg/dL Estim Creat Clear Calc 50.2 Estimated GFR > 60 Random Glucose 106 (60-115) mg/dL Calcium 9.2 (8.4-10.2) mg/dL ECG Data Interpretation: Normal sinus with a rate of 76, SD interval 120, QRS 66, QTC 427, normal axis, no ST depression or elevation, no T-wave abnormalities Discharge Plan Discharge Clinical Impression: Cervical radiculopathy Patient Disposition: Home, Self-Care Instructions: Cervical Radiculopathy (ED) Additional Instructions: You have arthritis in your neck, which may be making the symptoms of dizziness, tingling, and headache worse. I have prescribed prednisone. Please pick it up at your pharmacy and started today. Please call your primary care provider for follow-up appointment from today's emergency room visit. I have also referred you to Dr Blackburn, who is an opthamologist, for your blurry vision. Please call him at [phone] if you have not heard from him by tomorrow. please return to emergency room for any new or concerning symptoms. Tiene artritis en el fabio, lo que puede empeorar los s?ntomas de mareos, hormigueo y dolor de jass. Le he recetado prednisona. Rec?jalo en carreno farmacia y comience hoy. Llame a carreno proveedor de atenci?n primaria para walter tha de seguimiento de la visita a la joaquín de emergencias de hoy. Tambi?n lo he derivado al Dr. Blackburn, que es oftalm?logo, por carreno visi?n borrosa. Ll?bowman al [phone] si no sabe nada de ?l ma?easton. regrese a la joaquín de emergencias por cualquier s?ntoma nuevo o preocupante. Prescriptions: New prednisone 20 mg tablet 20 mg PO DAILY 9 Days Qty: 18 0RF Rx Instructions: 3 tablets for 3 days, 2 tablets for 3 days, 1 tablet for 3 days No Action cyclobenzaprine 10 mg tablet 10 mg PO TID PRN (Reason: muscle spasm) Qty: 14 0RF naproxen 500 mg tablet 500 mg PO BID PRN (Reason: pain) Qty: 14 0RF meclizine 25 mg tablet 25 mg PO BID PRN (Reason: dizziness) Qty: 10 0RF budesonide 0.5 mg/2 mL suspension for nebulization inhalation diclofenac sodium 1 % gel 2 g topical BID zolpidem 10 mg tablet 10 mg PO BEDTIME acetaminophen [Tylenol Arthritis Pain] 650 mg tablet extended release 650 mg PO Q12H PRN Referrals: Jay Woods [Physician] - Print Language: Chinese
[2021-11-05] MEDS: iohexoL 350 MG/ML 100 ML INFUS..BTL IV (17:08)
== END 2021-11-05 18:46 | disposition home or self-care (01) ==
PROVIDERS: Emergency Provider Emergency Medicine; PCP Internal Medicine Geriatric Medicine
DX: M54.12 Radiculopathy, cervical region (principal); R51.9 Headache, unspecified; M54.2 Cervicalgia; R20.0 Anesthesia of skin; R26.9 Unspecified abnormalities of gait and mobility; R42 Dizziness and giddiness; Z79.899 Other long term (current) drug therapy
CPT/HCPCS: 36415; 70450; 70496; 70498; 72125; 80048; 85025; 93005; 99284; Q9967

== ENCOUNTER → 2022-02-27 12:54 | Outpatient (BNVA) | payer OTHER, SELFPAY | PROVIDERS: PCP Internal Medicine Geriatric Medicine; Visit Provider Physician Assistant | DX: M75.82 Other shoulder lesions, left shoulder (principal) | CPT/HCPCS: 20610; 99212; J1040 ==

== ENCOUNTER 2022-03-04 13:34 | Outpatient (REF) | payer OTHER, SELFPAY ==
--- NOTE | ~2022-03-04 | MM_ITS ---
EXAMINATION: MM SCREENING DIGITAL BREAST TOMOSYNTHESIS, BILATERAL CLINICAL INFORMATION: Screening. Asymptomatic. The lifetime risk of breast cancer based on the Tyrer-Cuzick Model is 8%. COMPARISON: Mammography: 02/27/2021, 12/10/2019, 12/04/2018 TECHNIQUE: Digital breast tomosynthesis is performed in both the craniocaudal and mediolateral oblique views along with computer-aided detection (CAD). Synthesized 2D images are generated from the tomosynthesis. FINDINGS: There are scattered areas of fibroglandular density (ACR BI-RADS breast composition Category b). There are no significant masses, abnormal calcifications, or other abnormalities. Parenchymal pattern is similar to prior studies. No architectural abnormality. The axilla and skin contours are unremarkable. MM/MM tomosynthesis screening BI IMPRESSION: No mammographic evidence of malignancy. ASSESSMENT: BI-RADS 1: Negative RECOMMENDATION: Routine annual mammography screening. This patient's information was entered into a reminder system with a target due date for their next mammogram.
== END 2022-03-04 13:35 | disposition home or self-care (01) ==
LOC: HO.MAMMO 13:34
PROVIDERS: PCP Internal Medicine Geriatric Medicine; Visit Provider Internal Medicine Geriatric Medicine
DX: Z12.31 Encounter for screening mammogram for malignant neoplasm of breast (principal)
CPT/HCPCS: 77063; 77067

== ENCOUNTER 2022-07-25 12:26 | Emergency (ER) | payer OTHER, SELFPAY ==
[2022-07-25 12:44] VITALS: BP 142/82; BP 180/94; PULSE 93; PULSE 98; RESP 16; TEMP 37.3; O2SAT 95; O2SAT 97; BMI 30.9
--- NOTE | 2022-07-25 14:16 | ED.GENADULT ---
HPI - General Adult General Chief complaint: Upper Respiratory Symptoms Stated complaint: COUGH SORETHROAT ALL NIGHT,NO FEVER PER EMS Time Seen by Provider: 07/25/22 13:41 Source: patient, family, RN notes reviewed, old records reviewed and aerial photograph interpreter Mode of arrival: ambulatory Limitations: language barrier History of Present Illness HPI narrative: 71-year-old female presents for evaluation of cough, sore throat. She reports her symptoms started 2 days ago. She denies any sick contacts. She reports that she went to her primary clinic 2 days ago and had a negative COVID test and ?normal blood work. ? She reports that her pain radiates to her left ear and is 7/10. Denies any fevers, chills, shortness of breath, abdominal pain, nausea vomiting She endorses increased fatigue No other complaints or concerns at Related Data Home Medications Medication Instructions Recorded Confirmed budesonide 0.5 mg/2 mL suspension mg inhalation 02/16/20 11/17/20 for nebulization diclofenac sodium 1 % topical gel 2 g topical BID 02/16/20 11/17/20 zolpidem 10 mg tablet 10 mg PO BEDTIME 02/16/20 11/17/20 acetaminophen 650 mg 650 mg PO Q12H PRN 11/17/20 11/17/20 tablet,extended release (Tylenol Arthritis Pain) Previous Rx's Medication Instructions Recorded cyclobenzaprine 10 mg tablet 10 mg PO TID PRN muscle spasm #14 03/07/20 tabs naproxen 500 mg tablet 500 mg PO BID PRN pain #14 tabs 03/07/20 meclizine 25 mg tablet 25 mg PO BID PRN dizziness #10 tabs 10/05/21 prednisone 20 mg tablet 20 mg PO DAILY 9 days #18 tabs 11/05/21 azithromycin 250 mg tablet See Rx Instructions PO .COMPLEX #6 07/25/22 tabs Allergies Allergy/AdvReac Type Severity Reaction Status Date / Time No Known Allergies Allergy Verified 02/27/22 13:27 Review of Systems Constitutional: Constitutional: Reports as per HPI, Reports body ache(s), Reports chills and Denies fever(s) ENT: Reports sore throat and Reports other (Reports left ear pain) Cardiovascular: Cardiovascular: Denies chest pain and Denies dyspnea Respiratory: Respiratory: Reports cough, Reports pain with cough and Denies dyspnea Gastrointestinal: Gastrointestinal: Denies abdominal pain, Denies constipation and Denies vomiting Genitourinary: Genitourinary: Denies dysuria FORMERLY [facility], [facility] Past Medical History Medical History (Updated 07/25/22 @ 15:49 by Lee Cortes) Arthritis Tendonitis Surgical History (Updated 02/27/22 @ 13:28 by Shruthi Beckford Yaniv) History of hand surgery Family History Family History Mother Alzheimer disease Hypertension Dementia Father Hypertension Social History Social History Alcohol intake: never Patient Tobacco Use Status: Never used Tobacco e-Cigarette/Vaping Use: Never Used Advance Directives: Yes Advance Directives Information Provided: Yes Advance Directives on File: No Current occupational status: retired Current occupation: rt handed Physical Exam ED Vital Signs: Vital Signs - 24 hr 07/25/22 12:44 Temperature 99.1 F Pulse Rate 98 Respiratory Rate 16 Blood Pressure 180/94 H Pulse Oximetry 95 Oxygen Delivery Method Room Air BMI result Body Mass Index 30.9 Const General: healthy appearing, comfortable, no acute distress, alert and awake Nutritional Appearance: well nourished Orientation/consciousness: patient oriented x3 HENMT Ears: external ears normal, TM normal on the right and TM normal on the left (Mildly erythematous left TM without bulging or perforation) Throat: Yes tonsils normal and Yes other (Mild erythema without edema or exudates) Eyes Eyelids: Yes eyelids normal Conjunctivae: conjunctivae normal Sclerae: sclerae normal Corneas: corneas normal Pupils: Equal, round and reactive pupils present EOM: EOMs intact bilaterally Resp Effort & Inspection: normal respiratory effort, able to speak in complete sentences, no audible wheezes and not labored Auscultation: clear to auscultation bilaterally Skin General skin exam: no rashes or lesions noted and elasticity normal Lesions: no lesions Rashes: no rashes Neuro General: patient oriented x3 Cranial nerves: Yes Equal, round and reactive pupils present Extrem General: Yes full ROM Medical Decision Making Medical Decision Making MDM Narrative: Patient is somewhat hypertensive, otherwise vital signs are normal. Denies any chest pain, headache or dizziness. She complains of cough, sore throat ear pain. Viral panel and strep tests ordered. Differential Diagnosis Viral syndrome RSV COVID-19 Influenza Upper respiratory infection Strep pharyngitis Lab Data Labs: Lab Results 07/25/22 07/25/22 Range/Units 14:27 14:27 Influenza Type A (PCR) NEGATIVE (Negative) Influenza Type B (PCR) NEGATIVE (Negative) RSV RNA Qual (PCR) NEGATIVE (Negative) SARS-CoV-2 RNA (RT-PCR) NEGATIVE (Negative) S. pyogenes GrpA ANASTASIIA Negative (Negative) Discharge Plan Discharge Clinical Impression: Upper respiratory infection Patient Disposition: Home, Self-Care Instructions: Upper Respiratory Infection (ED) Additional Instructions: You tested negative for COVID, influenza, RSV and strep. Take azithromycin as directed You may also use [id number] cough medicine, Motrin and Tylenol for discomfort Prescriptions: New azithromycin 250 mg tablet See Rx Instructions .ROUTE .COMPLEX Qty: 6 0RF Rx Instructions: For 250 mg dose pack: take 500 mg today (day 1), then 250 mg for 4 days (days 2-5) No Action cyclobenzaprine 10 mg tablet 10 mg PO TID PRN (Reason: muscle spasm) Qty: 14 0RF naproxen 500 mg tablet 500 mg PO BID PRN (Reason: pain) Qty: 14 0RF prednisone 20 mg tablet 20 mg PO DAILY 9 Days Qty: 18 0RF Rx Instructions: 3 tablets for 3 days, 2 tablets for 3 days, 1 tablet for 3 days meclizine 25 mg tablet 25 mg PO BID PRN (Reason: dizziness) Qty: 10 0RF budesonide 0.5 mg/2 mL suspension for nebulization inhalation diclofenac sodium 1 % gel 2 g topical BID zolpidem 10 mg tablet 10 mg PO BEDTIME acetaminophen [Tylenol Arthritis Pain] 650 mg tablet extended release 650 mg PO Q12H PRN
[2022-07-25 14:47] LABS: IDNOW Serial# 6674DD1D; Strep A Nucleic Acid Negative (Negative)
[2022-07-25 15:17] LABS: Influenza A PCR NEGATIVE (Negative); Influenza B PCR NEGATIVE (Negative); Resp Syncy Virus RNA Qual PCR NEGATIVE (Negative); SARS COV2 PCR INHOUSE NEGATIVE (Negative)
== END 2022-07-25 16:08 | disposition home or self-care (01) ==
PROVIDERS: Physician Assistant; Emergency Provider Emergency Medicine Emergency Medical Services; PCP Internal Medicine Geriatric Medicine
DX: J06.9 Acute upper respiratory infection, unspecified (principal); R05.9 Cough, unspecified; J02.8 Acute pharyngitis due to other specified organisms; R50.9 Fever, unspecified; R53.83 Other fatigue; Z20.822 Contact with and (suspected) exposure to COVID-19; Z20.828 Contact with and (suspected) exposure to other viral communicable diseases; Z79.899 Other long term (current) drug therapy
CPT/HCPCS: 0241U; 87651; 99282; 99283

== ENCOUNTER 2022-08-06 07:24 | Outpatient (REF) | payer OTHER, SELFPAY ==
--- NOTE | ~2022-08-06 | CT_ITS ---
EXAMINATION: CT HEAD WITHOUT CONTRAST CLINICAL INFORMATION: Headache after fainting. COMPARISON: CT angiogram of the head and neck 11/05/2021. TECHNIQUE: Contiguous axial imaging was performed from the skull base to vertex without intravenous administration of contrast. This CT examination was performed using dose optimization techniques as appropriate, variously including the following: *Automated exposure control *Adjustment of mA and/or kV according to patient size (this includes techniques or standardized protocols for targeted exams where dose is matched to indication/reason for exam; i.e. extremities or head) *Use of iterative reconstruction technique DLP: 622 mGy-cm FINDINGS: There is no acute intracranial hemorrhage or abnormal extra-axial collection. No intracranial mass effect or midline shift. Lateral and third ventricles are normal. No hydrocephalus. Ansari-white matter differentiation is preserved and there is no evidence of acute territorial infarct. The calvarium and skull base are intact. Mastoid air cells and middle ear cavities are well aerated. Mild to moderate paranasal sinus disease is partially visualized within the left maxillary sinus and ethmoid air cells. Globes and orbits are grossly symmetric. CT/CT head/brain wo IV con IMPRESSION: Unremarkable CT scan of the head. No evidence of acute territorial infarct or hemorrhage. No abnormal intracranial mass effect or hydrocephalus.
== END 2022-08-06 07:25 | disposition home or self-care (01) ==
LOC: HO.CT 07:24
PROVIDERS: PCP Internal Medicine Geriatric Medicine; Visit Provider Internal Medicine Geriatric Medicine
DX: R51.9 Headache, unspecified (principal); S09.90XS Unspecified injury of head, sequela; X58.XXXS Exposure to other specified factors, sequela
CPT/HCPCS: 70450

== ENCOUNTER 2022-11-21 11:22 | Outpatient (REF) | payer OTHER, SELFPAY ==
[2022-11-21 12:54] LABS: Alanine Aminotransferase 28 U/L (0-31); Albumin Level 4.2 g/dL (3.5-5.0); Alkaline Phosphatase 67 U/L (39-117); Anion Gap 14 (12-20); Aspartate Amino Transferase 22 U/L (5-31); Bilirubin Total 0.6 mg/dL (0.0-1.0); Blood Urea Nitrogen 14 mg/dL (9-16); Calcium 9.5 mg/dL (8.4-10.2); Carbon Dioxide 22 mmol/L (22-29); Chloride 110 mmol/L (96-108); Estimated Glomerular Filt Rate > 60; Glucose Random 121 mg/dL (60-115); Potassium 4.3 mmol/L (3.3-5.1); Sodium 142 mmol/L (135-145); Total Protein 7.6 g/dL (6.5-8.0)
== END 2022-11-21 11:23 | disposition home or self-care (01) ==
LOC: HO.LAB 11:22
PROVIDERS: PCP Internal Medicine Geriatric Medicine; Visit Provider Internal Medicine Geriatric Medicine
DX: R10.11 Right upper quadrant pain (principal)
CPT/HCPCS: 36415; 80053; 85025

== ENCOUNTER 2022-12-04 07:13 | Outpatient (REF) | payer OTHER, SELFPAY ==
--- NOTE | ~2022-12-04 | US_ITS ---
EXAMINATION: US ABDOMEN COMPLETE CLINICAL INFORMATION: Right upper quadrant pain. COMPARISON: Ultrasound abdomen complete 05/27/2019 and 12/01/2013. CT abdomen and pelvis 12/03/2013. TECHNIQUE: Real-time imaging of the abdominal viscera. FINDINGS: PANCREAS: Normal head and body, the head and tail are partly obscured by bowel gas. ABDOMINAL AORTA: The proximal, mid, and distal segments are normal in caliber. INFERIOR VENA CAVA: Visualized portions are normal. LIVER: The liver is normal in size. The liver contour is normal. There is diffuse increased liver parenchymal echogenicity, consistent with hepatic steatosis. Focal fatty sparing is seen adjacent to the gallbladder. 1.9 x 1.1 x 1.3 cm partially septated cyst is seen in the right lobe. There is no intrahepatic biliary duct dilatation seen. GALLBLADDER: Normal. The gallbladder is physiologically distended without evidence of stones, sludge, polyps, wall thickening or pericholecystic fluid. COMMON BILE DUCT: Normal in caliber measuring 0.3 cm in diameter. RIGHT KIDNEY: Normal. No hydronephrosis. No renal calculi or focal parenchymal lesions. The kidney measures 11.2 cm in maximum dimension. LEFT KIDNEY: Normal. No hydronephrosis. No renal calculi or focal parenchymal lesions. The kidney measures 10.9 cm in maximum dimension. SPLEEN: Normal. The spleen measures 9.8 cm in maximum dimension. FREE FLUID: None. US/US abdomen complete IMPRESSION: 1. Hepatic steatosis. 2. 1.9 cm partially septated cyst in the right lobe of the liver.
== END 2022-12-04 07:14 | disposition home or self-care (01) ==
LOC: HO.US 07:13
PROVIDERS: PCP Internal Medicine Geriatric Medicine; Visit Provider Internal Medicine Geriatric Medicine
DX: R10.11 Right upper quadrant pain (principal)
CPT/HCPCS: 76700

== ENCOUNTER 2022-12-06 08:12 | Outpatient (AMB) | payer OTHER, SELFPAY ==
--- NOTE | 2022-12-06 08:35 | A.OFFVIS_ITS ---
Intake Vital Signs 12/06/22 08:37 Height 4 ft 11 in Weight 151 lb 3.794 oz BMI 30.5 BP 108/76 Blood Pressure Location Lt brachial Position Sitting Pulse 63 Intake Visit Reasons: NPV/Name/Syncope Intake Note: NPV w/ EKG Sales Representative Trainee Required: Yes Sales Representative Trainee Language: Department Manager Name: Lupe [id number] Accompanied by: Spouse Allergies No Known Allergies Allergy (Verified 12/06/22 08:44) Medication List - Last Reconciled 12/06/22 by Murali Romano MD acetaminophen ER (Tylenol Arthritis Pain) 650 mg PO Q12H PRN budesonide mg inhalation diclofenac sodium 1% 2 grams topical BID naproxen 500 mg PO BID PRN zolpidem 10 mg PO BEDTIME HPI HPI Comments History of Present Illness Details Wendie is here for consultation regarding syncopal episodes. She apparently had a couple episodes of this. Additionally, whenever she gets up from a sitting position, it seems she gets somewhat dizzy. Today's blood pressure is on the lower side. However, there are some high blood pressures but it seems during those recordings she was in the ER for different reason. No known cardiovascular issues like coronary disease myocardial infarction or cardiomyopathy. Other nonspecific complaints like some shortness of breath and atypical, nonexertional chest pains at random times. These are highly nonspecific. [facility]LY [facility] Medical History (Updated 12/06/22 @ 08:56 by Murali Romano MD) Arthritis Tendonitis Surgical History History of hand surgery Family History Mother Alzheimer disease Hypertension Dementia Father Hypertension Social History Alcohol intake: never Patient Tobacco Use Status: Never used Tobacco e-Cigarette/Vaping Use: Never Used Current occupational status: retired Current occupation: rt handed Review of Systems Const Denies chills, Denies daytime sleepiness, Denies fatigue, Denies fever(s), Denies frequent falls, Denies night sweats, Denies snoring, Denies weakness, Denies weight gain and Denies weight loss Eyes Denies loss of vision ENT Denies dizziness and Denies hearing loss Card Denies chest pain, Denies chest pain with activity, Denies syncope, Denies rapid heart rate, Denies edema, Denies claudication, Denies leg edema, Denies lightheadedness, Denies palpitations, Denies dyspnea, Denies dyspnea on exertion and Denies orthopnea Resp Denies cough, Denies excessive phlegm production, Denies dyspnea, Denies dyspnea on exertion, Denies snoring and Denies wheezing GI Denies abdominal pain, Denies hematochezia, Denies change in bowel habits, Denies change in stool character, Denies heartburn, Denies nausea and Denies vomiting Denies hematuria, Denies urinary frequency and Denies dysuria Musc Denies arthralgias, Denies muscle weakness, Denies numbness and Denies tingling Skin/Breast Denies nail changes and Denies rash Neuro Denies Abnormal speech present, Denies dizziness, Denies syncope, Denies frequent falls, Denies loss of vision, Denies memory loss, Denies numbness, Denies tingling and Denies weakness Psych Denies depression and Denies memory loss Endo Denies fatigue and Denies palpitations Aller/Immun Denies wheezing Physical Exam Vital Signs: Last Vital Signs Pulse 63 12/06/22 08:37 BP 108/76 12/06/22 08:37 BMI result Body Mass Index 30.5 Const General: comfortable and no acute distress Orientation/consciousness: patient oriented x3 HEENT Other: Unremarkable Head: Yes normal to inspection Neck Neck: Yes normal visual inspection Chest Chest palpation & inspection: normal inspection of the chest Resp Auscultation: clear to auscultation bilaterally Cardio Palpation: normal PMI Heart sounds: S1 normal heart sound present, S2 normal heart sound present, no gallops, no murmurs and no rubs GI Palpation (GI): Soft to palpation Back/Spine/Pelvis Other: unremarkable Skin General skin exam: no rashes or lesions noted Neuro General: patient oriented x3 Speech: No Abnormal speech present Extrem General: Yes normal to inspection Psych Mental Status: mental status grossly normal Office Procedures EKG Details: EKG with sinus rhythm at 63/Min; low-voltage QRS; no significant ST-T changes; [place] [id number], Complete Assessment & Plan Assessment & Plan (1) Syncope and collapse: Code(s): R55 - Syncope and collapse Plan Possible orthostatic dizziness/syncope. Will check an echocardiogram and tilt-table test. Follow-up after that. Orders: Orders CA echo transthoracic complete Today R55 - Syncope and collapse ECG Tilt Table Test Today R55 - Syncope and collapse Coding Level of Care Code New Pt Level 3 (35762) Diagnoses Syncope and collapse R55 CPT Codes EKG - CPT: 85353-[id number], Complete ([id number])
[2022-12-06 08:37] VITALS: BP 108/76; PULSE 63; BMI 30.5
== END 2022-12-06 09:05 | disposition home or self-care (01) ==
PROVIDERS: PCP Internal Medicine Geriatric Medicine; Visit Provider Internal Medicine
DX: R55 Syncope and collapse (principal)
CPT/HCPCS: 93010; 99203

== ENCOUNTER → 2022-12-06 08:12 | Outpatient (BNVA) | payer OTHER, SELFPAY | PROVIDERS: PCP Internal Medicine Geriatric Medicine; Visit Provider Internal Medicine | DX: R55 Syncope and collapse (principal) | CPT/HCPCS: 93005; 99202 ==

== ENCOUNTER 2023-01-27 06:55 | Outpatient (REF) | payer OTHER, SELFPAY | END 2023-01-27 06:56 | disposition home or self-care (01) | LOC: HO.HOSX 06:55 | PROVIDERS: Visit Provider Physician Assistant | DX: Z13.89 Encounter for screening for other disorder (principal) ==

== ENCOUNTER → 2023-02-21 14:35 | Outpatient (REF) | payer OTHER, SELFPAY | LOC: HO.CARD 14:35 | PROVIDERS: PCP Internal Medicine Geriatric Medicine; Visit Provider Internal Medicine | DX: R55 Syncope and collapse (principal) | CPT/HCPCS: 93306; Q9957 ==

== ENCOUNTER → 2023-02-21 14:37 | Outpatient (BNV) | payer OTHER, SELFPAY | PROVIDERS: PCP Internal Medicine Geriatric Medicine; Visit Provider Internal Medicine | DX: I34.81 Nonrheumatic mitral (valve) annulus calcification (principal) | CPT/HCPCS: 93306 ==

== ENCOUNTER 2023-03-04 12:31 | Outpatient (AMB) | payer OTHER, SELFPAY ==
--- NOTE | 2023-03-04 12:38 | A.OFFVIS_ITS ---
Intake Vital Signs 03/04/23 12:39 Height 4 ft 11 in Weight 152 lb 1.903 oz BMI 30.7 BP 146/84 H Blood Pressure Location Rt brachial Position Sitting Pulse 72 Intake Visit Reasons: follow after testing per HS Intake Note: Follow-up echo and tilt table test c/o fatigue Transportation Inspector Required: No Principal Technical Architect: Principal Technical Architect Present Accompanied by: Spouse Allergies No Known Allergies Allergy (Verified 12/06/22 08:44) Medication List - Last Reconciled 03/04/23 by Zhane Braga NP acetaminophen ER (Tylenol Arthritis Pain) 650 mg PO Q12H PRN amlodipine 5 mg PO DAILY budesonide mg inhalation diclofenac sodium 1% 2 grams topical BID HPI HPI Comments History of Present Illness Details 72-year-old female presents for a follow -up after echocardiogram and tilt table. She reports feeling okay since last visit. Reports just feeling fatigue. Tilt table showed vasovagal syncope. She reports she has been increasing her fluids. She denies having any more syncopal epiosdes or near- syncope. She denies ever taking the amlodipine - reports she does not like to take medications. Echo showed mildly increased LV wall thickness, LV sytolic function is normal. EF 63%. No wall motion abnormalities. FORMERLY [facility] Medical History (Updated 03/04/23 @ 13:09 by Zhane Braga NP) Hypertension Tendonitis Arthritis Surgical History History of hand surgery Family History Mother Alzheimer disease Hypertension Dementia Father Hypertension Social History Alcohol intake: never Patient Tobacco Use Status: Never used Tobacco e-Cigarette/Vaping Use: Never Used Current occupational status: retired Current occupation: rt handed Review of Systems Const Denies chills, Denies fatigue, Denies fever(s), Denies frequent falls, Denies weakness, Denies weight gain and Denies weight loss ENT Denies dizziness Card Denies chest pain, Denies leg edema, Denies lightheadedness, Denies palpitations, Denies dyspnea, Denies dyspnea on exertion, Denies orthopnea and Denies other (loss of consciousness) Resp Denies cough, Denies dyspnea and Denies dyspnea on exertion GI Denies hematochezia and Denies change in stool character Musc Denies abnormal gait, Denies muscle weakness, Denies numbness, Denies radiating pain into limb and Denies tingling Neuro Denies abnormal gait, Denies dizziness, Denies frequent falls, Denies numbness, Denies tingling and Denies weakness Endo Denies fatigue and Denies palpitations Physical Exam Vital Signs: Last Vital Signs Pulse 72 03/04/23 12:39 BP 146/84 H 03/04/23 12:39 BMI result Body Mass Index 30.7 Const General: healthy appearing and no acute distress Orientation/consciousness: patient oriented x3 HEENT Head: Yes normal to inspection Eyes General: appearance normal, both eyes and all related structures Neck Neck: Yes normal visual inspection Chest Chest palpation & inspection: normal inspection of the chest Resp Effort & Inspection: normal respiratory effort Auscultation: clear to auscultation bilaterally Cardio Jugular venous distension: no JVD Palpation: normal PMI Rate: regular rate Rhythm: regular rhythm Heart sounds: S1 normal heart sound present, S2 normal heart sound present, no click, no gallops, no murmurs and no rubs GI Inspection: Yes normal to inspection Palpation (GI): Soft to palpation Skin General skin exam: no rashes or lesions noted Neuro General: patient oriented x3 Extrem General: Yes normal to inspection Psych Appearance: grossly normal Assessment & Plan Assessment & Plan (1) Syncope and collapse: Code(s): R55 - Syncope and collapse (2) Hypertension: Code(s): I10 - Essential (primary) hypertension (3) Ascending aorta dilatation: Comment: on 02/21/23 4.00 cm mild dilatation noted on echocardiogram Code(s): I77.810 - Thoracic aortic ectasia Plan Blood pressure elevated today. Restart the amlodipine and come back for a nurse visit in 2 weeks for a BP check. Discussed in detail the complications of uncontrolled blood pressure and the reasons it needs to be under control. She agreed to start the amlodipine. Avoid added salt due to high BPs. Continue monitoring BP at home. Increase fluid intake. Come back in 6 months to meet with Dr. Romano. Medications: New amlodipine 5 mg PO DAILY 30 tabs 3RF Coding Level of Care Code Est Pt Level 4 (51648) Diagnoses Syncope and collapse R55 Hypertension I10 Ascending aorta dilatation I77.810
[2023-03-04 12:39] VITALS: BP 146/84; PULSE 72; BMI 30.7
== END 2023-03-04 13:07 | disposition home or self-care (01) ==
PROVIDERS: PCP Internal Medicine Geriatric Medicine; Visit Provider Nurse Practitioner
DX: R55 Syncope and collapse (principal); I10 Essential (primary) hypertension; I77.810 Thoracic aortic ectasia
CPT/HCPCS: 99214

== ENCOUNTER → 2023-03-04 12:31 | Outpatient (BNVA) | payer OTHER, SELFPAY | PROVIDERS: PCP Internal Medicine Geriatric Medicine; Visit Provider Nurse Practitioner | DX: I77.810 Thoracic aortic ectasia (principal); R55 Syncope and collapse; I10 Essential (primary) hypertension; R53.83 Other fatigue | CPT/HCPCS: 99212 ==

== ENCOUNTER 2023-03-05 14:55 | Outpatient (AMB) | payer OTHER, SELFPAY ==
--- NOTE | 2023-03-05 15:08 | A.OFFVIS_ITS ---
Intake Vital Signs 03/05/23 15:18 Height 4 ft 11 in Weight 152 lb BMI 30.7 Intake Visit Reasons: ov- Lt shoulder pain Intake Note: Wendie a 72 year old right hand dominant female presents today for a follow up of left shoulder pain, last injection 02/27/22. Patient reports last injection did not provide any relief, states pain is worse. She has constant pain that radiates down her arm and into her shoulder blade. She was not able to attend PT. Property Economist Name: Berta ID#[id number] Allergies No Known Allergies Allergy (Verified 03/05/23 15:17) HPI ov- Lt shoulder pain HPI Details 72-year-old right hand dominant female andrea sarabia returns to the office today for a follow-up of left shoulder pain. She states she has worsened constant pain in her shoulder which radiates down her arm and into her shoulder blade. She had her last injection on 02/27/23 which did not provide her any relief. She was not able to attend physical therapy. [facility] Medical History (Updated 03/04/23 @ 13:09 by Zhane Braga NP) Hypertension Tendonitis Arthritis Surgical History History of hand surgery Family History Mother Alzheimer disease Hypertension Dementia Father Hypertension Social History Alcohol intake: never Patient Tobacco Use Status: Never used Tobacco e-Cigarette/Vaping Use: Never Used Current occupational status: retired Current occupation: rt handed Review of Systems Const All systems reviewed & are unremarkable except as noted in HPI and below Physical Exam Vital Signs: BMI result Body Mass Index 30.7 Extrem Other: Left shoulder normal to inspection. Tenderness over the bicipital groove and along the deltoid region of the shoulder. Forward flexion to 175, external rotation to 90, internal rotation to S1. Pain and weakness with RTC strength testing. Negative Gonzales and cross body abduction. NVI. Office Procedures Joint Injection/Drain Joint Injection/Drain Primary Site: left shoulder Prep: site was prepped using aseptic technique, ethochloride spray was applied and injection warnings given Injected: 80 mg of, DepoMedrol, with 8 mL of, 1% plain lidocaine and in the subcromial space Approach Used: posterolateral Procedure: The patient tolerated the procedure well and there was some relief with the local anesthesia Coding 50738 - Glenohumeral/Tronchanteric Bursa/Intraarticular Procedure code (CPT) selection complete Results Reviewed Results Reviewed: 03/05/23 15:20 Lidocaine HCl 2 % MPF [Xylocaine 2 % MPF] 5 ml .ROUTE .STK-MED ONE methylPREDNISolone acetate [DEPO-MedroL] 80 mg .ROUTE .STK-MED ONE Assessment & Plan Assessment & Plan (1) Tendinitis of left rotator cuff: Code(s): M75.82 - Other shoulder lesions, left shoulder Plan We discussed options today which include steroid injection. They did consent to move forward with the left shoulder injection, which was tolerated well. I recommended rest, ice and elevation and OTC anti-inflammatories PRN for discomfort. If symptoms persist or worsens over the next 6-8 weeks, patient will contact the office, otherwise follow-up as needed. Patient Instructions: Scribed for Apoorva Draper PA-C, by Ethan Ty medical diagnostic radiographer, on 03/05/2023 at 3:30 PM ISAI. Apoorva Lao PA-C, have personally reviewed and agree with the information entered by the scribe. Coding Level of Care Code Est Pt Level 3 (29754) Diagnoses Tendinitis of left rotator cuff M75.82 CPT Codes Coding - Joint 7: 16936 - Glenohumeral/Tronchanteric Bursa/Intraarticular ([id number])
[2023-03-05 15:18] VITALS: BMI 30.7
== END 2023-03-05 15:33 | disposition home or self-care (01) ==
PROVIDERS: PCP Internal Medicine Geriatric Medicine; Visit Provider Physician Assistant
DX: M75.82 Other shoulder lesions, left shoulder (principal)
CPT/HCPCS: 20610; 99213

== ENCOUNTER → 2023-03-05 14:55 | Outpatient (BNVA) | payer OTHER, SELFPAY | PROVIDERS: PCP Internal Medicine Geriatric Medicine; Visit Provider Physician Assistant | DX: M75.82 Other shoulder lesions, left shoulder (principal) | CPT/HCPCS: 20610; 99212; J1040 ==

== ENCOUNTER 2023-03-11 14:28 | Outpatient (REF) | payer OTHER, SELFPAY | END 2023-03-11 14:29 | disposition home or self-care (01) | LOC: HO.MAMMO 14:28 | PROVIDERS: PCP Internal Medicine Geriatric Medicine; Visit Provider Internal Medicine Geriatric Medicine | DX: Z12.31 Encounter for screening mammogram for malignant neoplasm of breast (principal) | CPT/HCPCS: 77063; 77067 ==

== ENCOUNTER → 2023-03-11 14:32 | Outpatient (BNV) | payer OTHER, SELFPAY | PROVIDERS: PCP Internal Medicine Geriatric Medicine; Visit Provider Radiology Diagnostic Radiology | DX: Z12.31 Encounter for screening mammogram for malignant neoplasm of breast (principal) | CPT/HCPCS: 77063; 77067 ==

== ENCOUNTER 2023-03-21 10:54 | Inpatient (IN) | payer OTHER, SELFPAY ==
--- NOTE | ~2023-03-21 | CT_ITS ---
EXAMINATION: CT ABDOMEN AND PELVIS WITH CONTRAST CLINICAL INFORMATION: Diffuse abdominal pain. COMPARISON: 12/03/2013 TECHNIQUE: Multidetector volumetric images were obtained from the superior aspect of the liver through the pubic symphysis following administration 85 mL of Omnipaque 350 intravenous contrast. Sagittal and coronal reformatted images were obtained on the technologist's workstation. Oral contrast: No This CT examination was performed using dose optimization techniques as appropriate, variously including the following: *Automated exposure control *Adjustment of mA and/or kV according to patient size (this includes techniques or standardized protocols for targeted exams where dose is matched to indication/reason for exam; i.e. extremities or head) *Use of iterative reconstruction technique DLP: 481 mGy-cm FINDINGS: LUNG BASES: Small hiatal hernia. LIVER, GALLBLADDER, AND BILIARY TREE: The liver is decreased in attenuation. No suspicious hepatic lesion or biliary ductal dilatation is present. The gallbladder is unremarkable with no evidence of radiopaque gallstones, gallbladder wall thickening, or obvious pericholecystic inflammatory changes. PANCREAS: Unremarkable. SPLEEN: Unremarkable. ADRENAL GLANDS: Unremarkable. KIDNEYS AND URETERS: The kidneys are normal in size, shape, and attenuation. No hydronephrosis, hydroureter, or calculi seen. No perinephric stranding. BLADDER: Unremarkable. GASTROINTESTINAL TRACT: Inflamed diverticulum of the mid sigmoid colon with wall thickening and surrounding pericolonic stranding. No small bowel obstruction. Appendix is within normal limits. ABDOMINAL WALL: No significant hernia is appreciated. LYMPH NODES: No bulky lymphadenopathy. VASCULAR: Unremarkable. PELVIC VISCERA: Uterus is surgically absent. OSSEOUS STRUCTURES: No destructive bone lesions. CT/CT abdomen pelvis w IV con IMPRESSION: Acute diverticulitis of the sigmoid colon. Follow up imaging after treatment is advised.
[2023-03-21 11:15] VITALS: BP 155/88; PULSE 91; RESP 18; TEMP 36.7; O2SAT 98; BMI 29.4
--- NOTE | 2023-03-21 11:15 | ED.GENADULT ---
HPI - General Adult General Chief complaint: General Medical Stated complaint: Multiple Complaints Time Seen by Provider: 03/21/23 11:52 Source: patient, family, RN notes reviewed and old records reviewed Mode of arrival: ambulatory History of Present Illness HPI narrative: 72-year-old female with past medical history of hypertension, arthritis, tendinitis, ascending aortic dilation, presenting to ED complaining of diffuse abdominal cramping described as contractions with associated nausea x3 days. Also reports intermittent chest burning/tingling. Denies fever/chills, vomiting, diarrhea, dysuria/hematuria, SOB Related Data Home Medications Medication Instructions Recorded Confirmed budesonide 0.5 mg/2 mL suspension mg inhalation 02/16/20 12/06/22 for nebulization diclofenac sodium 1 % topical gel 2 g topical BID 02/16/20 12/06/22 acetaminophen 650 mg 650 mg PO Q12H PRN 11/17/20 12/06/22 tablet,extended release (Tylenol Arthritis Pain) Previous Rx's Medication Instructions Recorded amlodipine 5 mg tablet 5 mg PO DAILY #30 tabs 03/04/23 amoxicillin 875 mg-potassium 1 tab PO Q8H 7 days #21 tabs 03/21/23 clavulanate 125 mg tablet Allergies Allergy/AdvReac Type Severity Reaction Status Date / Time No Known Allergies Allergy Verified 03/21/23 11:18 Review of Systems Review of Systems: Constitutional: No Fever, No Chills, No Fatigue, No Malaise ENT/Mouth: No Ear Pain, No Hoarseness, No sore throat, No Rhinorrhea, No Swallowing Difficulty Eyes: No Eye Pain, No Swelling, No Redness, No Vision Changes Cardiovascular: + Chest Pain, No SOB, No Edema, No Palpitations Respiratory: No Cough, No Sputum, No Wheezing, No Smoke Exposure, No Dyspnea Gastrointestinal: + Nausea, No Vomiting, No Diarrhea, No Constipation, +Abdominal pain, No Hematochezia, No Melena Genitourinary: No irregular bleeding, No Dysuria, No Hematuria, No Urinary Incontinence/retention, No Flank Pain Musculoskeletal: No joint pain, No Myalgias, No Joint Swelling Skin: No Skin Lesions, No rash Neuro: No Weakness, No Numbness, No Paresthesias,No Dizziness, No Headache Yes all other systems are reviewed and are negative Constitutional: Constitutional: Reports as per [facility] [place] Past Medical History Attestation statement: The following information was validated with the patient. Source: old records reviewed Medical History Hypertension Tendonitis Arthritis Surgical History History of hand surgery Family History Family History Mother Alzheimer disease Hypertension Dementia Father Hypertension Social History Social History Alcohol intake: never Patient Tobacco Use Status: Never used Tobacco Smoked in Last 30 Days: No e-Cigarette/Vaping Use: Never Used Use of substances other than those prescribed or required for medical reasons: No Advance Directives: No Advance Directives Information Provided: No Current occupational status: retired Current occupation: rt handed Physical Exam ED Vital Signs: Vital Signs - 24 hr 03/21/23 11:15 03/21/23 14:26 Temperature 98.0 F Pulse Rate 91 79 Respiratory Rate 18 21 H Blood Pressure 155/88 H 134/87 Pulse Oximetry 98 98 Oxygen Delivery Method Room Air Room Air BMI result Body Mass Index 29.4 Const General: cooperative, healthy appearing and no acute distress Orientation/consciousness: patient oriented x3 Limitations: no limitations HENMT Head: Yes normal to inspection and Yes atraumatic Ears: hearing grossly normal bilaterally General nose exam: Normal external nose present Face and sinus: Yes normal facial exam Eyes General: appearance normal, both eyes and all related structures EOM: EOMs intact bilaterally Neck Neck: Yes normal visual inspection and Yes no meningeal signs Resp Effort & Inspection: normal respiratory effort and no respiratory distress Auscultation: clear to auscultation bilaterally Cardio Rate: regular rate Heart sounds: S1 normal heart sound present and S2 normal heart sound present GI Inspection: Yes normal to inspection Palpation (GI): Soft to palpation, Tenderness to palpation present (GI) (Diffusely) with no rebound tenderness, Guarding due to palpation present (GI) in the RLQ and not rigid General: Yes no CVA tenderness Back/Spine/Pelvis Back: no CVA tenderness Skin Rashes: no rashes Wounds: no wounds Neuro General: patient oriented x3, tone normal and no meningeal signs Cranial nerves: Yes CN's II-XII intact bilaterally Gait exam (Neuro): Normal gait present Extrem General: Yes normal to inspection and Yes no pedal edema Course Course Course Narrative: This is a rapid medical exam: Additional HPI, ROS, PE not included below will be deferred to primary provider. Patient is a 72-year-old Ukrainian speaking female with history of HTN, ascending aorta dilation presenting to the emergency department with complaint of lower abdominal pain which she compares to contractions for several days. Patient denies diarrhea, disagrees. Patient denies nausea or vomiting. Denies any urinary symptoms. Also complains of intermittent midsternal stabbing chest pain with associated arm tingling. Plan: EKG, labs -1552--no leukocytosis. Labs otherwise reassuring CT abdomen pelvis w IV con IMPRESSION: Acute diverticulitis of the sigmoid colon. Follow up imaging after treatment is advised. 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 Patient reports continued abdominal pain. Additional dose of IV morphine ordered and p.o. Augmentin. Will p.o. trial and re-evaluate. -1647--on re-evaluation patient reports continued abdominal pain, admits to feeling dizzy and nauseous. Patient started actively vomiting during our conversation. Plan to admit for further management, failed p.o. trial Medications Administered Discontinued Medications Generic Name Dose Route Start Last Admin Trade Name Juancarlos PRN Reason Stop Dose Admin Amoxicillin/Clavulanate Potassium 875 mg 03/21/23 15:52 03/21/23 16:14 Amoxicillin/Potassium Clav 875 Mg Tablet PO 03/21/23 15:53 875 mg ONCE ONE Administration Iohexol 100 ml 03/21/23 13:24 03/21/23 13:24 Iohexol 350 Mg/Ml 100 Ml Infus..Btl IV 03/21/23 13:25 85 ml ONCE ONE Administration Morphine Sulfate 2 mg 03/21/23 12:32 03/21/23 12:49 Morphine Sulfate 2 Mg/Ml Cartridge IVPUSH 03/21/23 12:33 2 mg ONCE ONE Administration Protocol Morphine Sulfate 2 mg 03/21/23 15:52 03/21/23 16:14 Morphine Sulfate 2 Mg/Ml Cartridge IVPUSH 03/21/23 15:53 2 mg ONCE ONE Administration Protocol Medical Decision Making Medical Decision Making MDM Narrative: 72-year-old female with past medical history of hypertension, arthritis, tendinitis, ascending aortic dilation, presenting to ED complaining of diffuse abdominal cramping described as contractions with associated nausea x3 days. Also reports intermittent chest burning/tingling. On exam vital signs stable, NAD, nontoxic appearing, abdomen soft diffusely tender, no rebound, guarding to RLQ. Concern for appendicitis vs diverticulitis vs pancreatitis vs Aortic disease. Rule out atypical ACS. Lower suspicion for ischemic bowel, pancreatitis, cholecystitis, renal stone Plan: EKG, labs, CT AP, IVF, pain control Please refer to course for remaining clinical decision making, interpretation of labs/imaging results, and discussions with consultants and/or family members. Differential Diagnosis Differential Diagnoses: The differential diagnosis associated with the presentation includes As above Admission/Observation Consideration of admission/observation: Escalation of care including admission/observation considered Consult Healthcare Provider Management of the patient was discussed with: Hospitalist Lab Data MDM Lab Attestation statement: I reviewed the patient's lab results. 03/21/23 11:42 03/21/23 11:42 Labs: Lab Results 03/21/23 03/21/23 Range/Units 11:42 12:46 WBC 10.0 (4.8-10.8) X10*3/uL RBC 4.60 (4.20-5.50) X10*6/uL Hgb 12.6 (12.0-16.0) g/dl Hct 38.5 (37.0-47.0) % MCV 83.7 (80.0-98.0) fL MCH 27.4 (27.0-33.0) pg MCHC 32.7 (31.0-35.0) g/dl RDW 13.9 (11.0-16.0) % Plt Count 263 (160-400) X10*3/uL MPV 8.5 L (9.4-12.3) fL Immature Gran % (Auto) 0.2 (0.0-0.4) % Neut % (Auto) 72.7 (45-73) % Lymph % (Auto) 19.1 L (20-40) % Coffee % (Auto) 6.5 (2-11) % Eos % (Auto) 1.2 (0-4) % Baso % (Auto) 0.3 (0-2) % Lymph # (Auto) 1.9 (1.2-4.9) X10*3/uL [place] # (Auto) 0.7 (0.1-1.2) X10*3/uL Eos # (Auto) 0.1 (0.0-0.4) X10*3/uL Baso # (Auto) 0.0 (0.0-0.2) X10*3/uL Abs Immat Gran (auto) 0.02 (0.00-0.03) X10*3/uL Absolute Neuts (auto) 7.3 (2.0-8.3) x10*3/uL Absolute Nucleated RBC 0.000 (0.0-0.012) X10*3/uL Nucleated RBC % (auto) 0.0 (0.0-0.2) /100WBC Sodium 137 (135-145) mmol/L Potassium 3.9 (3.3-5.1) mmol/L Chloride 107 (96-108) mmol/L Carbon Dioxide 21 L (22-29) mmol/L Anion Gap 13 (12-20) BUN 13 (9-16) mg/dL Creatinine 0.77 (0.5-1.4) mg/dL Estim Creat Clear Calc 58.7 Estimated GFR > 60 Random Glucose 153 H (60-115) mg/dL Calcium 9.2 (8.4-10.2) mg/dL Magnesium 1.9 (1.6-2.6) mg/dL Total Bilirubin 0.4 (0.0-1.0) mg/dL AST 12 (5-31) U/L ALT 11 (0-31) U/L Alkaline Phosphatase 79 (39-117) U/L Troponin I High Sens < 2.7 (<3.5-17.0) ng/L Total Protein 7.5 (6.5-8.0) g/dL Albumin 4.0 (3.5-5.0) g/dL Lipase 61 (8-78) U/L Urine Color Yellow Urine Appearance Clear Urine pH 5.5 (5.0-9.0) Ur Specific [place] 1.010 (1.005-1.025) Urine Protein Negative (Neg-Trace) mg/dL Urine Glucose (UA) Negative (Negative) mg/dL Urine Ketones Negative (Negative) mg/dL Urine Blood Negative (Negative) Urine Nitrite Negative (Negative) Ur Leukocyte Esterase Trace H (Negative) Urine RBC 0-2 (0-2) /HPF Urine WBC 0-5 (0-5) /HPF Ur Squamous Epith Cells 0-2 (0-2) /HPF Urine Bacteria None Seen (None Seen) Hyaline Casts 0-2 (0-2) /LPF Independent Interpretation I performed an independent interpretation of an: EKG (My interpretation EKG normal sinus rhythm rate of 75. Pr interval 122. QTC 419. No significant change when compared to prior. No STEMI) and CT Scan Radiology Impression Discussion of test interpretation with radiology: I have reviewed the radiologist's reading. Independent Historian Clinical information obtained from an independent historian. History obtained from or confirmed by: Spouse External Record Review External record reviewed: Inpatient record, Office record, Outpatient record, Prior outpatient labs, Prior outpatient radiology, Primary care record and Outside ED record Tests considered The following testing was considered but not selected: As above Prescription Management I considered prescription management with: Pain Medication Chronic Conditions Patient?s care impacted by: Hypertension Critical Care Time Critical Care Time Critical Care Time: Yes Total Critical Care Time: 35 Attestation: I have personally provided critical care time exclusive of time spent on separately billable procedures. Time includes review of lab data, radiology results, discussion with consultants, and monitoring for potential decompensation. Intervention performed as documented. Discharge Plan Discharge Clinical Impression: Acute diverticulitis Patient Disposition: Admitted As Inpatient Print Language: Ukrainian
--- NOTE | 2023-03-21 11:19 | ECG_ITS ---
Test Reason : CHEST PAIN Blood Pressure : / mmHG Vent. Rate : 075 BPM Atrial Rate : 075 BPM P-R Int : 122 ms QRS Dur : 066 ms QT Int : 376 ms P-R-T Axes : 031 -12 021 degrees QTc Int : 419 ms Normal sinus rhythm Cannot rule out Anterior infarct (cited on or before 05-NOV-2021) Abnormal ECG When compared with ECG of 05-NOV-2021 11:49, No significant change was found Referred By: Alicia Chacon Electronically Signed By:JOANN VIZCARRA MD
[2023-03-21 11:49] LABS: MANUAL DIFF FLAG NO
[2023-03-21 11:52] LABS: Basophils Percent Auto 0.3 % (0-2); Eosinophils Absolute Auto 0.1 X10*3/uL (0.0-0.4); Eosinophils Percent Auto 1.2 % (0-4); Hematocrit 38.5 % (37.0-47.0); Hemoglobin 12.6 g/dl (12.0-16.0); Imm Gran Abs Auto 0.02 X10*3/uL (0.00-0.03); Imm Gran Pct Auto 0.2 % (0.0-0.4); Lymphocytes Absolute Auto 1.9 X10*3/uL (1.2-4.9); Lymphocytes Percent Auto 19.1 % (20-40); Mean Corpuscular HGB Conc 32.7 g/dl (31.0-35.0); Mean Corpuscular Hemoglobin 27.4 pg (27.0-33.0); Mean Corpuscular Volume 83.7 fL (80.0-98.0); Mean Platelet Volume 8.5 fL (9.4-12.3); Monocytes Absolute Auto 0.7 X10*3/uL (0.1-1.2); Monocytes Percent Auto 6.5 % (2-11); Neutrophils Absolute Auto 7.3 x10*3/uL (2.0-8.3); Neutrophils Percent Auto 72.7 % (45-73); Platelet Count 263 X10*3/uL (160-400); Red Cell Distribution Width 13.9 % (11.0-16.0)
[2023-03-21 12:07] LABS: Alanine Aminotransferase 11 U/L (0-31); Alkaline Phosphatase 79 U/L (39-117); Anion Gap 13 (12-20); Aspartate Amino Transferase 12 U/L (5-31); Bilirubin Total 0.4 mg/dL (0.0-1.0); Blood Urea Nitrogen 13 mg/dL (9-16); Calcium 9.2 mg/dL (8.4-10.2); Carbon Dioxide 21 mmol/L (22-29); Chloride 107 mmol/L (96-108); Creatinine Clr Calc Pharmacy 58.7; Estimated Glomerular Filt Rate > 60; Glucose Random 153 mg/dL (60-115); Magnesium 1.9 mg/dL (1.6-2.6); Potassium 3.9 mmol/L (3.3-5.1); Sodium 137 mmol/L (135-145); Total Protein 7.5 g/dL (6.5-8.0)
[2023-03-21 12:13] LABS: Troponin-I High Sensitivity < 2.7 ng/L (<3.5-17.0)
[2023-03-21] MEDS: Morphine Sulfate 2 MG/ML CARTRIDGE IVPUSH ×2 (12:49→16:14)
[2023-03-21 12:54] LABS: Lipase 61 U/L (8-78)
[2023-03-21 12:57] LABS: Appearance Urine Clear; Color Urine Yellow; Glucose Urine UA Negative (Negative); Leukocyte Esterase Urine Trace (Negative); Nitrite Urine Negative (Negative); PH 5.5 (5.0-9.0); UMIC TRIGGER UACC YES; Urine Blood Negative (Negative); Urine Ketones Negative (Negative); Urine Protein Negative (Neg-Trace)
[2023-03-21 13:02] LABS: Bacteria Urine None Seen (None Seen); Hyaline Casts Urine 0-2 /LPF (0-2); RBC Urine 0-2 /HPF (0-2); Squamous Epithelial Cell Urine 0-2 /HPF (0-2); WBC Urine 0-5 /HPF (0-5)
[2023-03-21] MEDS: iohexoL 350 MG/ML 100 ML INFUS..BTL IV (13:24)
[2023-03-21 14:26] VITALS: BP 134/87; PULSE 79; RESP 21; O2SAT 98
[2023-03-21] MEDS: Amoxicillin/Potassium Clav 875 MG TABLET PO (16:14)
[2023-03-21] MEDS: 0.9 % Sodium Chloride 1,000 ML 999 ML IV (16:52)
[2023-03-21] MEDS: ondansetron HCL 4 MG/2 ML VIAL IVPUSH (16:53)
[2023-03-21 16:55] VITALS: BP 142/78; PULSE 70; RESP 16; TEMP 36.4
[2023-03-21] MEDS: diphenhydrAMINE HCL 50 MG/ML VIAL 12.5 MG IVPUSH (16:57)
--- NOTE | 2023-03-21 17:32 | PHA.MEDREC ---
Pharmacy Consult ? Medication Reconciliation Pharmacy has completed the medication reconciliation. Patient reported medications. Report clonazaepam 2 mg, taking half tablet for sleep however patient has no PDMP history for clonazepam. Since no PDMP history I left out of med list. Patient has a prescription for Ambien but only states that she takes clonazepam. Patient reports that she only takes garlic for blood pressure and does not take amlodipine. Patient reports using her nebulizer PRN. Oma Lopez, AkilahD
[2023-03-21] MEDS: Enoxaparin Sodium 40 MG/0.4 ML SYRINGE SUBCUT (17:55)
[2023-03-21] MEDS: Piperacillin Sodium/Tazobactam 4.5 GM in 0.9 % Sodium Chloride 100 ML IV ×2 (18:00→23:25)
--- NOTE | 2023-03-21 18:35 | P.HPHOSP_ITS ---
History of Present Illness Date of Service: 03/21/23 Chief Complaint: Lower abdominal pain 9-year-old female past medical history significant for hypertension arthritis ascending aortic dilatation presents emergency room with diffuse abdominal cramping and left lower quadrant pain that she states has been going on for 2 days. She states the pain began mild but has persisted to being severe. In the emergency room, CT abdomen pelvis demonstrated acute diverticulitis of the sigmoid colon. Patient was given IV analgesia and started on Zosyn. She will be admitted for treatment of same Review of Systems 2 Review of Systems: Denies chest pain Denies shortness of breath Admits nausea and vomiting denies diarrhea Denies fever chills. Admits abdominal pain PMFSH Medical History Hypertension Tendonitis Arthritis Family History Mother Alzheimer disease Hypertension Dementia Father Hypertension Surgical History History of hand surgery Social History Alcohol intake: never Patient Tobacco Use Status: Never used Tobacco Smoked in Last 30 Days: No e-Cigarette/Vaping Use: Never Used Use of substances other than those prescribed or required for medical reasons: No Advance Directives: No Advance Directives Information Provided: No Current occupational status: retired Current occupation: rt handed Meds Allergies Allergy/AdvReac Type Severity Reaction Status Date / Time No Known Allergies Allergy Verified 03/21/23 11:18 Active Medications: Current Medications Acetaminophen (Acetaminophen 325 Mg Tablet) 650 mg PO Q6H PRN PRN Reason: Pain, Mild (Pain Scale 1-3) Albuterol Sulfate 2.5 mg/ (Albuterol/Ipratropium 3 ml) 0 mg INHALE Q4H PRN PRN Reason: wheezing Enoxaparin Sodium (Enoxaparin Sodium 40 Mg/0.4 Ml Syringe) 40 mg SUBCUT Q24H JEANNETTE Last Admin: 03/21/23 17:55 Dose: 40 mg Hydromorphone HCl (Hydromorphone Hcl 1 Mg/Ml Syringe) 0.5 mg IVPUSH Q4H PRN; Protocol PRN Reason: Pain, Severe (Pain Scale 7-10) Piperacillin Sod/Tazobactam (Sod 4.5 gm/ Sodium Chloride) 100 mls @ 200 mls/hr IV Q6H [facility] Last Admin: 03/21/23 18:00 Dose: 200 mls/hr Oxycodone HCl (Oxycodone Hcl Immed Release 5 Mg Tablet) 5 mg PO Q6H PRN PRN Reason: Pain, Moderate(Pain Scale 4-6) Sodium Chloride (0.9 % Sodium Chloride Flush 3 Ml Syringe) 3 ml IVFLUSH QSHIFT [facility] Home Medications Medication Instructions Recorded Confirmed Last Taken Type budesonide 0.5 mg/2 mL suspension 0.5 mg inhalation BID PRN Wheezing 02/16/20 03/21/23 Unknown History for nebulization acetaminophen 650 mg 650 mg PO Q12H PRN Pain 11/17/20 03/21/23 Unknown History tablet,extended release (Tylenol Arthritis Pain) albuterol sulfate 90 mcg/actuation 2 puff inhalation Q4H 03/21/23 03/21/23 Unknown History aerosol inhaler cholecalciferol (vitamin D3) 25 25 mcg PO DAILY 03/21/23 03/21/23 Unknown History mcg (1,000 unit) tablet cyanocobalamin (vitamin B-12) 1,000 mcg PO DAILY 03/21/23 03/21/23 Unknown History 1,000 mcg tablet garlic 1 cap PO DAILY 03/21/23 03/21/23 Unknown History Physical Exam 2 Vital Signs and Narrative: Vital Signs: Last Vital Signs Temp 97.6 F 03/21/23 16:55 Pulse 70 03/21/23 16:55 Resp 16 03/21/23 16:55 BP 142/78 H 03/21/23 16:55 Pulse Ox 98 03/21/23 14:26 O2 Del Method Room Air 03/21/23 14:26 BMI result Body Mass Index 29.4 Const: Other: Awake alert lying comfortable on stretcher Resp: Other: Clear to auscultation bilaterally no rales rhonchi or wheezes Cardio: Other: No S4; positive S1-S2; no S3 murmurs rubs or gallops GI: Other: Voluntary guarding noted with increased pain to palpation left lower quadrant. No acute peritoneal signs. Bowel sounds quiet Neuro: Other: Cranial nerves 2-12 grossly intact as tested. Motor is 5 of 5 all extremities sensation is intact. Cognition appropriate. Gait not observed Extrem: Other: No edema bilaterally Results Labs 03/21/23 11:42 03/21/23 11:42 Labs: Laboratory Results - last 24 hr 03/21/23 03/21/23 11:42 12:46 MCV 83.7 MCH 27.4 MCHC 32.7 RDW 13.9 Plt Count 263 MPV 8.5 L Immature Gran % (Auto) 0.2 Neut % (Auto) 72.7 Lymph % (Auto) 19.1 L [place] % (Auto) 6.5 Eos % (Auto) 1.2 Baso % (Auto) 0.3 Lymph # (Auto) 1.9 [place] # (Auto) 0.7 Eos # (Auto) 0.1 Baso # (Auto) 0.0 Abs Immat Gran (auto) 0.02 Absolute Neuts (auto) 7.3 Absolute Nucleated RBC 0.000 Nucleated RBC % (auto) 0.0 Anion Gap 13 Estim Creat Clear Calc 58.7 Estimated GFR > 60 Random Glucose 153 H Calcium 9.2 Magnesium 1.9 Total Bilirubin 0.4 AST 12 ALT 11 Alkaline Phosphatase 79 Total Protein 7.5 Albumin 4.0 Lipase 61 Urine Color Yellow Urine Appearance Clear Urine pH 5.5 Ur Specific [place] 1.010 Urine Protein Negative Urine Glucose (UA) Negative Urine Ketones Negative Urine Blood Negative Urine Nitrite Negative Ur Leukocyte Esterase Trace H Urine RBC 0-2 Urine WBC 0-5 Ur Squamous Epith Cells 0-2 Urine Bacteria None Seen Hyaline Casts 0-2 Imaging Radiologist's Impressions: Impressions Abdomen/Pelvis CT 03/21/23 13:26 IMPRESSION: Acute diverticulitis of the sigmoid colon. Follow up imaging after treatment is advised. Assessment and Plan (1) Acute diverticulitis: Status: Acute (2) Hypertension: Qualifiers: Hypertension type: primary hypertension Qualified Code(s): I10 - Essential (primary) hypertension Status: Acute Plan 72-year-old female presents with approximately 48 hours of crampy abdominal pain that has worsened. She denies fever chills. Evaluation in the emergency room with CT demonstrated acute sigmoid diverticulitis. She was attempted on oral antibiotics however secondary to nausea could not tolerated. At this point she will be admitted for IV antibiotics and analgesia 1. Acute sigmoid diverticulitis -Zosyn (1) -clear liquids... Advanced as tolerated -morphine for severe pain; oxycodone for moderate -patient states she is scheduled for outpatient colonoscopy next month; advised to maintain that appointment 2. Hypertension -acceptable control on current therapies -adjust as indicated 3. Anxiety -Klonopin at HS as per outpatient dosing Full Code Lovenox Requires at least 2 midnights going forward of inpatient hospitalization for IV antibiotics to treat acute sigmoid diverticulitis given nausea. This cannot be achieved a lesser acute setting Quality Stroke Does the patient have a stroke diagnosis?: No VTE Prior VTE?: No VTE Risk Level:: Medical - moderate - high VTE Device Contraindication: Treatment Not Indicated VTE Drug Contraindication: N/A - Med Ordered
[2023-03-21 19:29] VITALS: BP 140/83; PULSE 83; RESP 18; TEMP 36.3; O2SAT 96
[2023-03-21] MEDS: Acetaminophen 325 MG TABLET 650 MG PO (19:38)
[2023-03-21] MEDS: 0.9 % Sodium Chloride Flush 3 ML SYRINGE IVFLUSH (23:25)
[2023-03-22 03:18] VITALS: BP 110/59; PULSE 71; RESP 18; TEMP 36.6; O2SAT 98
[2023-03-22] MEDS: Piperacillin Sodium/Tazobactam 4.5 GM in 0.9 % Sodium Chloride 100 ML IV ×4 (05:48→22:22)
[2023-03-22 06:27] LABS: MANUAL DIFF FLAG NO
[2023-03-22 06:32] LABS: Basophils Percent Auto 0.4 % (0-2); Eosinophils Absolute Auto 0.1 X10*3/uL (0.0-0.4); Eosinophils Percent Auto 1.7 % (0-4); Hematocrit 36.9 % (37.0-47.0); Imm Gran Abs Auto 0.03 X10*3/uL (0.00-0.03); Imm Gran Pct Auto 0.4 % (0.0-0.4); Lymphocytes Absolute Auto 1.9 X10*3/uL (1.2-4.9); Lymphocytes Percent Auto 23.5 % (20-40); Mean Corpuscular HGB Conc 32.5 g/dl (31.0-35.0); Mean Corpuscular Hemoglobin 28.3 pg (27.0-33.0); Monocytes Absolute Auto 0.6 X10*3/uL (0.1-1.2); Monocytes Percent Auto 7.1 % (2-11); Neutrophils Absolute Auto 5.5 x10*3/uL (2.0-8.3); Neutrophils Percent Auto 66.9 % (45-73); Platelet Count 277 X10*3/uL (160-400); Red Blood Count 4.24 X10*6/uL (4.20-5.50); Red Cell Distribution Width 14.1 % (11.0-16.0); White Blood Count 8.2 X10*3/uL (4.8-10.8)
[2023-03-22 06:50] LABS: Alanine Aminotransferase 11 U/L (0-31); Albumin Level 3.7 g/dL (3.5-5.0); Alkaline Phosphatase 70 U/L (39-117); Anion Gap 12 (12-20); Aspartate Amino Transferase 12 U/L (5-31); Bilirubin Total 0.5 mg/dL (0.0-1.0); Blood Urea Nitrogen 9 mg/dL (9-16); Calcium 8.9 mg/dL (8.4-10.2); Carbon Dioxide 27 mmol/L (22-29); Chloride 106 mmol/L (96-108); Creatinine Clr Calc Pharmacy 54.4; Estimated Glomerular Filt Rate > 60; Glucose Random 99 mg/dL (60-115); Potassium 4.5 mmol/L (3.3-5.1); Sodium 140 mmol/L (135-145); Total Protein 7.1 g/dL (6.5-8.0)
[2023-03-22 07:23] VITALS: BP 125/68; PULSE 65; RESP 15; RESP 16; TEMP 36.2; O2SAT 97; O2SAT 98
[2023-03-22] MEDS: 0.9 % Sodium Chloride Flush 3 ML SYRINGE IVFLUSH ×3 (07:52→22:22)
[2023-03-22] MEDS: Acetaminophen 325 MG TABLET 650 MG PO ×2 (08:03→15:14)
[2023-03-22] MEDS: Morphine Sulfate 2 MG/ML CARTRIDGE IVPUSH (11:47)
--- NOTE | 2023-03-22 13:27 | P.PNIM_ITS ---
Subjective Subjective Date of Service: 03/22/23 Interval History: Somewhat improved since admission however still uncomfortable Review of Systems Denies chest pain Denies shortness of breath Admits nausea and vomiting denies diarrhea Denies fever chills. Admits abdominal pain Physical Exam 2 Vital Signs: Vital Signs: Last Vital Signs Temp 97.1 F 03/22/23 07:23 Pulse 65 03/22/23 07:23 Resp 15 03/22/23 07:23 BP 125/68 03/22/23 07:23 Pulse Ox 97 03/22/23 07:23 O2 Del Method Room Air 03/22/23 07:23 BMI result Body Mass Index 29.4 Const: Other: Awake alert lying comfortable on stretcher Resp: Other: Clear to auscultation bilaterally no rales rhonchi or wheezes Cardio: Other: No S4; positive S1-S2; no S3 murmurs rubs or gallops GI: Other: Voluntary guarding noted with increased pain to palpation left lower quadrant. No acute peritoneal signs. Bowel sounds quiet Neuro: Other: Cranial nerves 2-12 grossly intact as tested. Motor is 5 of 5 all extremities sensation is intact. Cognition appropriate. Gait not observed Extrem: Other: No edema bilaterally Objective Data Active Medications Acetaminophen (Acetaminophen 325 Mg Tablet) 650 mg PO Q6H PRN PRN Reason: Pain, Mild (Pain Scale 1-3) Last Admin: 03/22/23 08:03 Dose: 650 mg Documented By: MIRA Albuterol Sulfate 2.5 mg/ (Albuterol/Ipratropium 3 ml) 0 mg INHALE Q4H PRN PRN Reason: wheezing Enoxaparin Sodium (Enoxaparin Sodium 40 Mg/0.4 Ml Syringe) 40 mg SUBCUT Q24H [facility] Last Admin: 03/21/23 17:55 Dose: 40 mg Documented By: LÓPEZ Piperacillin Sod/Tazobactam (Sod 4.5 gm/ Sodium Chloride) 100 mls @ 200 mls/hr IV Q6H [facility] Last Infusion: 03/22/23 12:34 Dose: Infused Documented By: WINNIE Morphine Sulfate (Morphine Sulfate 2 Mg/Ml Cartridge) 2 mg IVPUSH Q2H PRN; Protocol PRN Reason: Pain, Severe (Pain Scale 7-10) Last Admin: 11/04/23 11:47 Dose: 2 mg Documented By: WINNIE Oxycodone HCl (Oxycodone Hcl Immed Release 5 Mg Tablet) 5 mg PO Q6H PRN PRN Reason: Pain, Moderate(Pain Scale 4-6) Sodium Chloride (0.9 % Sodium Chloride Flush 3 Ml Syringe) 3 ml IVFLUSH QSHIFT [facility] Last Admin: 03/22/23 07:52 Dose: 3 ml Documented By: MIRA Zolpidem Tartrate (Zolpidem Tartrate 5 Mg Tablet) 5 mg PO BEDTIME PRN PRN Reason: Insomnia Labs 03/22/23 05:44 03/22/23 05:44 Labs: Laboratory Results - last 24 hr 03/22/23 05:44 MCV 87.0 MCH 28.3 MCHC 32.5 RDW 14.1 Plt Count 277 MPV 9.0 L Immature Gran % (Auto) 0.4 Neut % (Auto) 66.9 Lymph % (Auto) 23.5 Glenn % (Auto) 7.1 Eos % (Auto) 1.7 Baso % (Auto) 0.4 Lymph # (Auto) 1.9 Glenn # (Auto) 0.6 Eos # (Auto) 0.1 Baso # (Auto) 0.0 Abs Immat Gran (auto) 0.03 Absolute Neuts (auto) 5.5 Absolute Nucleated RBC 0.000 Nucleated RBC % (auto) 0.0 Anion Gap 12 Estim Creat Clear Calc 54.4 Estimated GFR > 60 Random Glucose 99 Calcium 8.9 Total Bilirubin 0.5 AST 12 ALT 11 Alkaline Phosphatase 70 Total Protein 7.1 Albumin 3.7 Assessment and Plan (1) Acute diverticulitis: Status: Acute Plan 72-year-old female presents with approximately 48 hours of crampy abdominal pain that has worsened. She denies fever chills. Evaluation in the emergency room with CT demonstrated acute sigmoid diverticulitis. She was attempted on oral antibiotics however secondary to nausea could not tolerated. Some improvement overnight 1. Acute sigmoid diverticulitis -Zosyn (2) -Advanced to full liquids -morphine for severe pain; oxycodone for moderate -patient states she is scheduled for outpatient colonoscopy next month; advised to maintain that appointment 2. Hypertension -acceptable control on current therapies -adjust as indicated 3. Anxiety -Klonopin at HS as per outpatient dosing Full Code Lovenox Requires at least 2 midnights going forward of inpatient hospitalization for IV antibiotics to treat acute sigmoid diverticulitis given nausea. This cannot be achieved a lesser acute setting Quality Stroke Does the patient have a stroke diagnosis?: No VTE Prior VTE?: No VTE Risk Level:: Medical - moderate - high VTE Device Contraindication: Treatment Not Indicated VTE Drug Contraindication: N/A - Med Ordered
[2023-03-22 15:39] VITALS: BP 141/74; PULSE 64; RESP 18; TEMP 36.4; O2SAT 97
[2023-03-22] MEDS: Enoxaparin Sodium 40 MG/0.4 ML SYRINGE SUBCUT (17:23)
[2023-03-22 19:39] VITALS: BP 123/71; PULSE 69; RESP 18; TEMP 36.2; O2SAT 97
[2023-03-23 03:50] VITALS: BP 137/67; PULSE 67; RESP 18; TEMP 36.1; O2SAT 98
[2023-03-23] MEDS: Morphine Sulfate 2 MG/ML CARTRIDGE IVPUSH (05:55)
[2023-03-23] MEDS: Piperacillin Sodium/Tazobactam 4.5 GM in 0.9 % Sodium Chloride 100 ML IV ×3 (05:58→17:35)
[2023-03-23 06:01] LABS: MANUAL DIFF FLAG NO
[2023-03-23 06:25] LABS: Alanine Aminotransferase 12 U/L (0-31); Albumin Level 3.6 g/dL (3.5-5.0); Alkaline Phosphatase 69 U/L (39-117); Anion Gap 12 (12-20); Aspartate Amino Transferase 12 U/L (5-31); Bilirubin Total 0.4 mg/dL (0.0-1.0); Blood Urea Nitrogen 10 mg/dL (9-16); Carbon Dioxide 26 mmol/L (22-29); Chloride 106 mmol/L (96-108); Creatinine Clr Calc Pharmacy 53.7; Estimated Glomerular Filt Rate > 60; Glucose Random 110 mg/dL (60-115); Potassium 4.1 mmol/L (3.3-5.1); Sodium 140 mmol/L (135-145); Total Protein 7.1 g/dL (6.5-8.0)
[2023-03-23 06:33] LABS: Basophils Percent Auto 0.5 % (0-2); Eosinophils Absolute Auto 0.2 X10*3/uL (0.0-0.4); Eosinophils Percent Auto 2.6 % (0-4); Hematocrit 36.4 % (37.0-47.0); Hemoglobin 11.8 g/dl (12.0-16.0); Imm Gran Abs Auto 0.02 X10*3/uL (0.00-0.03); Imm Gran Pct Auto 0.3 % (0.0-0.4); Lymphocytes Absolute Auto 1.5 X10*3/uL (1.2-4.9); Mean Corpuscular HGB Conc 32.4 g/dl (31.0-35.0); Mean Corpuscular Hemoglobin 27.3 pg (27.0-33.0); Mean Corpuscular Volume 84.3 fL (80.0-98.0); Mean Platelet Volume 8.7 fL (9.4-12.3); Monocytes Absolute Auto 0.4 X10*3/uL (0.1-1.2); Monocytes Percent Auto 6.2 % (2-11); Neutrophils Absolute Auto 4.5 x10*3/uL (2.0-8.3); Neutrophils Percent Auto 68.4 % (45-73); Platelet Count 274 X10*3/uL (160-400); Red Blood Count 4.32 X10*6/uL (4.20-5.50); Red Cell Distribution Width 13.6 % (11.0-16.0); White Blood Count 6.6 X10*3/uL (4.8-10.8)
[2023-03-23 07:02] VITALS: BP 135/87; PULSE 69; RESP 16; TEMP 36.6; O2SAT 97
[2023-03-23] MEDS: 0.9 % Sodium Chloride Flush 3 ML SYRINGE IVFLUSH ×3 (08:10→22:14)
--- NOTE | 2023-03-23 09:47 | MHC.CM.PN ---
CM MET WITH PT WITH [facility] PT REPORTS SHE LIVES ALONE AND HAS BEEN INDEPENDENT WITH CARE SHE REPORTS SHE WAS SUPPOSED TO HAVE AN ASSESSMENT TOMORROW TO QUALIFY FOR CUSTODIAN MANAGER SERVICES SHE WILL RESCHEDULE IF NOT DISCHARGED TODAY SHE SAYS SHE HAS A CANE, WALKER, AND COMMODE FOR DME SHE COMPLETED A HCP TODAY NAMING HER S/O, ESPERANZA BAILON [phone] AND DAUGHTER, MILENA BURNETT [phone] HER AGENTS PCP: HENNY JHAVERI IMM DELIVERED DCP: [facility] FAM[facility] TO TRANSPORT
--- NOTE | 2023-03-23 11:09 | P.PNIM_ITS ---
Subjective Subjective Date of Service: 03/23/23 Interval History: Slowly improving. Tolerating full liquids. .. Wishes regular diet. Pain improved Review of Systems Denies chest pain Denies shortness of breath Admits nausea and vomiting denies diarrhea Denies fever chills. Admits abdominal pain.. Improving Physical Exam 2 Vital Signs: Vital Signs: Last Vital Signs Temp 97.8 F 03/23/23 07:02 Pulse 69 03/23/23 07:02 Resp 16 03/23/23 07:02 BP 135/87 03/23/23 07:02 Pulse Ox 97 03/23/23 07:02 O2 Del Method Room Air 03/23/23 07:02 BMI result Body Mass Index 29.4 Const: Other: Awake alert lying comfortable on stretcher Resp: Other: Clear to auscultation bilaterally no rales rhonchi or wheezes Cardio: Other: No S4; positive S1-S2; no S3 murmurs rubs or gallops GI: Other: Minimal tenderness left lower quadrant; quiet bowel sounds. No peritoneal signs Neuro: Other: Cranial nerves 2-12 grossly intact as tested. Motor is 5 of 5 all extremities sensation is intact. Cognition appropriate. Gait not observed Extrem: Other: No edema bilaterally Objective Data Active Medications Acetaminophen (Acetaminophen 325 Mg Tablet) 650 mg PO Q6H PRN PRN Reason: Pain, Mild (Pain Scale 1-3) Last Admin: 03/22/23 15:14 Dose: 650 mg Documented By: WINNIE Albuterol Sulfate 2.5 mg/ (Albuterol/Ipratropium 3 ml) 0 mg INHALE Q4H PRN PRN Reason: wheezing Enoxaparin Sodium (Enoxaparin Sodium 40 Mg/0.4 Ml Syringe) 40 mg SUBCUT Q24H COUNTS [facility]CLUDE 234 BEDS AT THE [facility] Last Admin: 03/22/23 17:23 Dose: 40 mg Documented By: WINNIE Piperacillin Sod/Tazobactam (Sod 4.5 gm/ Sodium Chloride) 100 mls @ 200 mls/hr IV Q6H COUNTS INCLUDE 234 BEDS AT THE [facility] Last Infusion: 03/23/23 06:33 Dose: Infused Documented By: ALEJANDRA Morphine Sulfate (Morphine Sulfate 2 Mg/Ml Cartridge) 2 mg IVPUSH Q2H PRN; Protocol PRN Reason: Pain, Severe (Pain Scale 7-10) Last Admin: 03/23/23 05:55 Dose: 2 mg Documented By: ALEJANDRA Oxycodone HCl (Oxycodone Hcl Immed Release 5 Mg Tablet) 5 mg PO Q6H PRN PRN Reason: Pain, Moderate(Pain Scale 4-6) Sodium Chloride (0.9 % Sodium Chloride Flush 3 Ml Syringe) 3 ml IVFLUSH QSHIFT [facility] Last Admin: 03/23/23 08:10 Dose: 3 ml Documented By: WINNIE Zolpidem Tartrate (Zolpidem Tartrate 5 Mg Tablet) 5 mg PO BEDTIME PRN PRN Reason: Insomnia Labs 03/23/23 05:49 03/23/23 05:48 Labs: Laboratory Results - last 24 hr 03/23/23 03/23/23 05:48 05:49 MCV 84.3 MCH 27.3 MCHC 32.4 RDW 13.6 Plt Count 274 MPV 8.7 L Immature Gran % (Auto) 0.3 Neut % (Auto) 68.4 Lymph % (Auto) 22.0 Preston % (Auto) 6.2 Eos % (Auto) 2.6 Baso % (Auto) 0.5 Lymph # (Auto) 1.5 Preston # (Auto) 0.4 Eos # (Auto) 0.2 Baso # (Auto) 0.0 Abs Immat Gran (auto) 0.02 Absolute Neuts (auto) 4.5 Absolute Nucleated RBC 0.000 Nucleated RBC % (auto) 0.0 Anion Gap 12 Estim Creat Clear Calc 53.7 Estimated GFR > 60 Random Glucose 110 Calcium 9.0 Total Bilirubin 0.4 AST 12 ALT 12 Alkaline Phosphatase 69 Total Protein 7.1 Albumin 3.6 Assessment and Plan (1) Acute diverticulitis: Status: Acute Plan 72-year-old female presents with approximately 48 hours of crampy abdominal pain that has worsened. She denies fever chills. Evaluation in the emergency room with CT demonstrated acute sigmoid diverticulitis. She was attempted on oral antibiotics however secondary to nausea could not tolerated. Some improvement overnight 1. Acute sigmoid diverticulitis -Zosyn (3) -Advanced to regular diet -morphine for severe pain; oxycodone for moderate -patient states she is scheduled for outpatient colonoscopy next month; advised to maintain that appointment 2. Hypertension -acceptable control on current therapies -adjust as indicated 3. Anxiety -Klonopin at HS as per outpatient dosing Full Code Lovenox Requires ongoing hospitalization for IV antibiotics to treat acute diverticulitis failed oral therapies Quality Stroke Does the patient have a stroke diagnosis?: No VTE Prior VTE?: No VTE Risk Level:: Medical - moderate - high VTE Device Contraindication: Treatment Not Indicated VTE Drug Contraindication: N/A - Med Ordered
[2023-03-23 15:21] VITALS: BP 130/60; PULSE 73; RESP 17; TEMP 37.4; O2SAT 96
[2023-03-23] MEDS: Acetaminophen 325 MG TABLET 650 MG PO (15:32)
[2023-03-23] MEDS: Enoxaparin Sodium 40 MG/0.4 ML SYRINGE SUBCUT (17:35)
[2023-03-23 19:55] VITALS: BP 130/79; PULSE 70; RESP 17; TEMP 36.7; O2SAT 98
[2023-03-24] MEDS: Piperacillin Sodium/Tazobactam 4.5 GM in 0.9 % Sodium Chloride 100 ML IV ×3 (00:20→11:27)
[2023-03-24 00:47] VITALS: BP 124/68; PULSE 86; RESP 18; TEMP 36.2; O2SAT 99
[2023-03-24 05:43] LABS: MANUAL DIFF FLAG NO
[2023-03-24 05:51] LABS: Basophils Absolute Auto 0.1 X10*3/uL (0.0-0.2); Basophils Percent Auto 0.6 % (0-2); Eosinophils Absolute Auto 0.1 X10*3/uL (0.0-0.4); Eosinophils Percent Auto 1.6 % (0-4); Hematocrit 36.5 % (37.0-47.0); Imm Gran Abs Auto 0.02 X10*3/uL (0.00-0.03); Imm Gran Pct Auto 0.2 % (0.0-0.4); Lymphocytes Absolute Auto 1.7 X10*3/uL (1.2-4.9); Lymphocytes Percent Auto 19.9 % (20-40); Mean Corpuscular HGB Conc 32.9 g/dl (31.0-35.0); Mean Corpuscular Hemoglobin 27.9 pg (27.0-33.0); Mean Corpuscular Volume 84.9 fL (80.0-98.0); Mean Platelet Volume 9.1 fL (9.4-12.3); Monocytes Absolute Auto 0.5 X10*3/uL (0.1-1.2); Monocytes Percent Auto 5.5 % (2-11); Neutrophils Absolute Auto 6.2 x10*3/uL (2.0-8.3); Neutrophils Percent Auto 72.2 % (45-73); Platelet Count 289 X10*3/uL (160-400); Red Cell Distribution Width 13.6 % (11.0-16.0); White Blood Count 8.6 X10*3/uL (4.8-10.8)
[2023-03-24] MEDS: Acetaminophen 325 MG TABLET 650 MG PO (05:57)
[2023-03-24 06:04] LABS: Alanine Aminotransferase 13 U/L (0-31); Albumin Level 3.6 g/dL (3.5-5.0); Alkaline Phosphatase 68 U/L (39-117); Anion Gap 12 (12-20); Aspartate Amino Transferase 13 U/L (5-31); Bilirubin Total 0.3 mg/dL (0.0-1.0); Blood Urea Nitrogen 14 mg/dL (9-16); Calcium 8.9 mg/dL (8.4-10.2); Carbon Dioxide 23 mmol/L (22-29); Chloride 108 mmol/L (96-108); Creatinine Clr Calc Pharmacy 52.4; Estimated Glomerular Filt Rate > 60; Glucose Random 129 mg/dL (60-115); Potassium 4.2 mmol/L (3.3-5.1); Sodium 139 mmol/L (135-145); Total Protein 7.1 g/dL (6.5-8.0)
[2023-03-24 07:18] VITALS: BP 123/71; PULSE 74; RESP 16; TEMP 36.1; O2SAT 97
--- NOTE | 2023-03-24 13:20 | HO.PM.IMPN ---
Subjective Subjective Date of Service: 03/24/23 Interval History: Complaining of left lower quadrant abdominal pain,gas, urinary frequency, urgency, headachedoes not feel ready to go home. Denies fever chills, had 2 bowel movements last night. Review of Systems All other system reviewed and negative Physical Exam Vital Signs: Vital Signs: Last Vital Signs Temp 96.9 F 03/24/23 07:18 Pulse 74 03/24/23 07:18 Resp 16 03/24/23 07:18 BP 123/71 03/24/23 07:18 Pulse Ox 97 03/24/23 07:18 O2 Del Method Room Air 03/24/23 07:18 BMI result Body Mass Index 29.4 Const: Other: General awake alert x3,in no acute distress. Neck supple no JVD. CVS regular rate rhythm, Respiratory lungs clear to auscultation, no respiratory distress, no wheeze, no rhonchi. Gastrointestinal abdomen soft, left lower quadrant tenderness to palpation, bowel sounds audible, no guarding , no rigidity. Extremities no edema. Neuro nonfocal , speech clear. Skin no rash Psych appropriate affect. Objective Data Active Medications Acetaminophen (Acetaminophen 325 Mg Tablet) 650 mg PO Q6H PRN PRN Reason: Pain, Mild (Pain Scale 1-3) Last Admin: 03/24/23 05:57 Dose: 650 mg Documented By: SOILA Albuterol Sulfate 2.5 mg/ (Albuterol/Ipratropium 3 ml) 0 mg INHALE Q4H PRN PRN Reason: wheezing Enoxaparin Sodium (Enoxaparin Sodium 40 Mg/0.4 Ml Syringe) 40 mg SUBCUT Q24H [facility] Last Admin: 03/23/23 17:35 Dose: 40 mg Documented By: WINNIE Piperacillin Sod/Tazobactam (Sod 4.5 gm/ Sodium Chloride) 100 mls @ 200 mls/hr IV Q6H [facility] Last Infusion: 03/24/23 12:08 Dose: Infused Documented By: JEFFREY Morphine Sulfate (Morphine Sulfate 2 Mg/Ml Cartridge) 2 mg IVPUSH Q2H PRN; Protocol PRN Reason: Pain, Severe (Pain Scale 7-10) Last Admin: 03/23/23 05:55 Dose: 2 mg Documented By: ALEJANDRA Oxycodone HCl (Oxycodone Hcl Immed Release 5 Mg Tablet) 5 mg PO Q6H PRN PRN Reason: Pain, Moderate(Pain Scale 4-6) Sodium Chloride (0.9 % Sodium Chloride Flush 3 Ml Syringe) 3 ml IVFLUSH QSHIFT [facility] Last Admin: 03/24/23 09:48 Dose: Not Given Documented By: JEFFREY Non-Admin Reason: Previously Administered Zolpidem Tartrate (Zolpidem Tartrate 5 Mg Tablet) 5 mg PO BEDTIME PRN PRN Reason: Insomnia Labs 03/24/23 05:03 03/24/23 05:03 Labs: Laboratory Results - last 24 hr 03/24/23 05:03 MCV 84.9 MCH 27.9 MCHC 32.9 RDW 13.6 Plt Count 289 MPV 9.1 L Immature Gran % (Auto) 0.2 Neut % (Auto) 72.2 Lymph % (Auto) 19.9 L Wilkes % (Auto) 5.5 Eos % (Auto) 1.6 Baso % (Auto) 0.6 Lymph # (Auto) 1.7 Wilkes # (Auto) 0.5 Eos # (Auto) 0.1 Baso # (Auto) 0.1 Abs Immat Gran (auto) 0.02 Absolute Neuts (auto) 6.2 Absolute Nucleated RBC 0.000 Nucleated RBC % (auto) 0.0 Anion Gap 12 Estim Creat Clear Calc 52.4 Estimated GFR > 60 Random Glucose 129 H Calcium 8.9 Total Bilirubin 0.3 AST 13 ALT 13 Alkaline Phosphatase 68 Total Protein 7.1 Albumin 3.6 Assessment and Plan (1) Acute diverticulitis: Status: Acute Plan 72-year-old female presents with approximately 48 hours of crampy abdominal pain that has worsened. She denies fever chills. Evaluation in the emergency room with CT demonstrated acute sigmoid diverticulitis. She was attempted on oral antibiotics however secondary to nausea could not tolerated. Some improvement overnight 1. Acute sigmoid diverticulitis -had nausea last night, this morning complaining of lower abdominal pain, gas, urinary urgency and frequency on iv Zosyn started 03/21 on regular diet -recommend out of bed to chair and ambulation, DC iv morphine,cont oxycodone for pain. Check UA, follow clinical course closely will transition to by mouth Augmentin upon discharge -patient states she is scheduled for outpatient colonoscopy next month; advised to maintain that appointment 2. Hypertension -normal blood pressure not on antihypertensives 3. Anxiety -stable Full Code Lovenox Requires ongoing hospitalization for IV antibiotics to treat acute diverticulitis failed oral therapies Quality Stroke Does the patient have a stroke diagnosis?: No VTE Prior VTE?: No VTE Risk Level:: Medical - moderate - high VTE Device Contraindication: Treatment Not Indicated VTE Drug Contraindication: N/A - Med Ordered
[2023-03-24] MEDS: Amoxicillin/Potassium Clav 875 MG TABLET PO ×2 (14:09→20:23)
[2023-03-24 16:01] VITALS: BP 140/83; PULSE 78; RESP 18; TEMP 36.2; O2SAT 97
[2023-03-24 19:20] VITALS: BP 135/76; PULSE 88; RESP 20; TEMP 36.6; O2SAT 98
[2023-03-24] MEDS: Enoxaparin Sodium 40 MG/0.4 ML SYRINGE SUBCUT (20:23)
[2023-03-25] MEDS: Acetaminophen 325 MG TABLET 650 MG PO (02:50)
[2023-03-25 03:24] VITALS: BP 129/76; PULSE 88; RESP 18; TEMP 36.3; O2SAT 96
[2023-03-25 07:06] VITALS: BP 139/75; PULSE 72; RESP 16; TEMP 36.1; O2SAT 97
[2023-03-25] MEDS: Amoxicillin/Potassium Clav 875 MG TABLET PO (09:16)
--- NOTE | 2023-03-25 09:41 | P.DS_ITS ---
DS: Providers Provider Date of Service: 03/25/23 Date of admission: 03/21/23 17:32 Primary care physician: Martín Pittman MD DS: Diagnosis Discharge Diagnosis (1) Acute diverticulitis: Status: Acute DS: Summary Hospital Course Hospital Course: History of presenting illness: Date of Service: 03/21/23 Chief Complaint: Lower abdominal pain 9-year-old female past medical history significant for hypertension arthritis ascending aortic dilatation presents emergency room with diffuse abdominal cramping and left lower quadrant pain that she states has been going on for 2 days. She states the pain began mild but has persisted to being severe. In the emergency room, CT abdomen pelvis demonstrated acute diverticulitis of the sigmoid colon. Patient was given IV analgesia and started on Zosyn. She will be admitted for treatment of same. Hospital course 72-year-old female presents with approximately 48 hours of crampy abdominal pain that has worsened. She denies fever chills. Evaluation in the emergency room with CT demonstrated acute sigmoid diverticulitis,She was attempted on oral antibiotics however secondary to nausea could not tolerated, therefore admitted to medical floor with a diagnosis of, Acute sigmoid diverticulitis, treated with IV Zosyn, IV fluids and NPO abdominal pain gradually improved therefore diet was advanced, patient is not tolerating regular diet abdominal pain has resolved therefore she is being discharged home on by mouth Augmentin to finish a total 7 day course of antibiotic she is recommend to eat bland diet and follow-up with primary care physician, patient will need repeat imaging studies for clearance of infection, patient has an appointment for outpatient colonoscopy recommend to keep up the appointment. 2. Hypertension -normal blood pressure not on antihypertensives 3. Anxiety -stable continue home medications. Time Attestation Discharge coordination time: Greater than 30 minutes Quality: Safe Use of Opioids Does Pt have an Active Cancer Diagnosis on the Problem List?: No Quality: Stroke Does the patient have a stroke diagnosis?: No Physical Exam Vital Signs: Vital Signs: Last Vital Signs Temp 97.0 F 03/25/23 07:06 Pulse 72 03/25/23 07:06 Resp 16 03/25/23 07:06 BP 139/75 03/25/23 07:06 Pulse Ox 97 03/25/23 07:06 O2 Del Method Room Air 03/25/23 03:24 BMI result Body Mass Index 29.4 Const: Other: General awake alert x3,in no acute distress. Neck supple no JVD. CVS regular rate rhythm, Respiratory lungs clear to auscultation, no respiratory distress, no wheeze, no rhonchi. Gastrointestinal abdomen soft, nontender, bowel sounds audible, no guarding , no rigidity. Extremities no edema. Neuro nonfocal , speech clear. Skin no rash Psych appropriate affect. Discharge Plan Discharge Anticipated Discharge Date/Time: 03/25/23 09:37 Patient Disposition: Home, Self-Care Discharge Diagnosis: Acute sigmoid diverticulitis Referrals: [facility] [Provider Group] - 5 days Name,MD Martín [Primary Care Provider] - Discharge Medications: New amoxicillin-pot clavulanate 875-125 mg Tablet 1 tab PO BID Qty: 6 0RF Continued cyanocobalamin (vitamin B-12) 1,000 mcg Tablet 1,000 mcg PO DAILY garlic Capsule 1 cap PO DAILY albuterol sulfate 90 mcg/actuation HFA aerosol inhaler 2 puff inhalation Q4H cholecalciferol (vitamin D3) 25 mcg (1,000 unit) Tablet 25 mcg PO DAILY budesonide 0.5 mg/2 mL suspension for nebulization 0.5 mg inhalation BID PRN (Reason: Wheezing) acetaminophen [Tylenol Arthritis Pain] 650 mg tablet extended release 650 mg PO Q12H PRN (Reason: Pain) Discharge Orders: Discharge Order (Routine); Ordered 03/25/23 Ordered By: Farrah Rosas Diet: Low residue diet Activity on Discharge: As tolerated Stand Alone Forms: Patient Portal Discharge page Print Language: New Zealander Care Plan Goals: Take by mouth Augmentin 1 tablet twice daily for 3 more days Eat bland diet/add yogurt to diet Health Concerns: Continue all home medications Plan of Treatment: Outpatient follow-up with primary care physician call for appointment Assessment: As above Patient Instructions: Diverticulitis (ED), Diverticulitis Diet (ED)
--- NOTE | 2023-03-25 10:31 | MHC.CM.PN ---
IMM 03/23/23 Patient is discharged to home self care. She has arranged for private transport home.
--- NOTE | 2023-03-25 10:50 | PC.NURSE ---
Pt d/c addressed with Burton awad. Pt states she understands discharge, pt's states she shouldn't be discharged because she is still in pain in her ABD. Attempted to educate with d/c instructions and to follow up with PCP. Pt appears comfortable in bed and is not in distress at this time. Will follow up with pcp and agrees to be discharged.
== END 2023-03-25 12:22 | disposition home or self-care (01) | DRG 392 ==
LOC: HO.ED 16:49 → HO.EDOVER 17:39 → HO.S3 18:23
PROVIDERS: Physician Assistant; Registered Nurse Emergency; Admitting Provider Hospitalist; Emergency Provider Emergency Medicine; PCP Internal Medicine Geriatric Medicine; Visit Provider Hospitalist
DX: K57.32 Diverticulitis of large intestine without perforation or abscess without bleeding (principal); I10 Essential (primary) hypertension; F41.9 Anxiety disorder, unspecified; Z79.899 Other long term (current) drug therapy
CPT/HCPCS: 36415; 74177; 80053; 81001; 83690; 83735; 84484; 85025; 93005; 99285; J1200; J1650; J2270; J2405; J2543; Q9967

== ENCOUNTER → 2023-03-21 17:32 | Outpatient (BNV) | payer OTHER, SELFPAY | PROVIDERS: Admitting Provider Hospitalist; Emergency Provider Emergency Medicine; PCP Internal Medicine Geriatric Medicine; Visit Provider Hospitalist | DX: K57.92 Diverticulitis of intestine, part unspecified, without perforation or abscess without bleeding (principal) | CPT/HCPCS: 99223; 99232; 99233; 99239 ==

== ENCOUNTER 2023-04-17 10:10 | Outpatient (AMB) | payer OTHER, SELFPAY ==
--- NOTE | 2023-04-17 10:20 | MHC.OFFVIS ---
Intake Vital Signs 04/17/23 10:21 Height 4 ft 11 in Weight 152 lb 1.903 oz BMI 30.7 BP 155/84 H Blood Pressure Location Lt brachial Position Sitting Pulse 77 Intake Visit Reasons: Screening for Colon Cancer Intake Note: Wendie presents in the office as a screening for a colonoscopy. CC: She state that she is just due for a colonoscopy and no other concerns. [employer] Supervisor Required: No Allergies No Known Allergies Allergy (Verified 04/17/23 10:25) Medication List - Last Reconciled 04/17/23 by Caroline Dickson PA-C acetaminophen ER (Tylenol Arthritis Pain) 650 mg PO Q12H PRN albuterol sulfate 90 mcg/actuation 2 puffs inhalation Q4H cholecalciferol (vitamin D3) 25 mcg PO DAILY cyanocobalamin (vitamin B-12) 1,000 mcg PO DAILY garlic 1 cap PO DAILY loratadine 10 mg PO DAILY HPI HPI Comments History of Present Illness Details A 72 y/o female past medical history significant for hypertension arthritis ascending aortic dilatation presents emergency room 03/21/23 with diffuse abdominal cramping and left lower quadrant pain had been going on for 2 days. In the emergency room, CT abdomen pelvis revealed acute diverticulitis of the sigmoid colon. She was given IV analgesia and started on Zosyn. She was admitted for treatment of same- abdominal pain- After D/C went to -with increased abdominal pain, admitted for IV antibx- dischargerd with po antiobx x 5 day Feeling well- bowels normal-will go blood, no further abdominal pain, no fever or chills Appetite is good Respiratory or cardiac issues No N/V/ D/ abdominal pain, fever or chills PFSH Medical History Hypertension Tendonitis Arthritis Surgical History Hx of colonoscopy History of hand surgery Family History Mother Alzheimer disease Hypertension Dementia Father Hypertension Social History Household Members: Spouse Housing: Apartment Do you presently have visiting nurse or other home services: Yes Alcohol intake: never Comment: pt refused bed alarm Patient Tobacco Use Status: Never used Tobacco e-Cigarette/Vaping Use: Never Used service: No Current occupational status: retired Current occupation: rt handed Review of Systems Const All systems reviewed & are unremarkable except as noted in HPI and below Card Denies chest pain and Denies dyspnea Resp Denies dyspnea GI Denies abdominal pain, Denies hematochezia, Denies constipation, Reports heartburn, Denies diarrhea, Denies nausea and Denies vomiting Physical Exam Vital Signs: Last Vital Signs Pulse 77 04/17/23 10:21 BP 155/84 H 04/17/23 10:21 BMI result Body Mass Index 30.7 Const General: cooperative, healthy appearing, comfortable and no acute distress Orientation/consciousness: patient oriented x3 Limitations: no limitations Eyes Sclerae: sclerae normal Resp Effort & Inspection: normal respiratory effort and able to speak in complete sentences Auscultation: clear to auscultation bilaterally, no rales, no rhonchi and no wheezes Cardio Rate: regular rate Rhythm: regular rhythm Heart sounds: S1 normal heart sound present and S2 normal heart sound present Neuro General: patient oriented x3 Results Reviewed Results Reviewed: colonoscopy 2018- [facility] minor divertic polyp-benign Assessment & Plan Assessment & Plan (1) Hospital discharge follow-up: Comment: D/C from [facility]--readmitted to x 1 day-biotics discharge p.o. antibiotics x5 days symptoms resolve Code(s): Z09 - Encounter for follow-up examination after completed treatment for conditions other than malignant neoplasm (2) Acute diverticulitis: Comment: Admitted H , and Code(s): K57.92 - Diverticulitis of intestine, part unspecified, without perforation or abscess without bleeding Plan: Diverticulosis/diverticulitis ER proltocol reviewed, reinforce (3) Acid reflux: Comment: Avoid culprits, PPI EGD Code(s): K21.9 - Gastro-esophageal reflux disease without esophagitis Plan: pantoprazole 20 mg Reflux precautions EGD Plan ED for abdominal pain EGD/ colon Orders: Orders EGD/Nebo Combo - GI Use Only Today K21.9 - Gastro-esophageal reflux disease without esophagitis, K57.92 - Diverticulitis of intestine, part unspecified, without perforation or abscess without bleeding, Z09 - Encounter for follow-up examination after completed treatment for conditions other than malignant neoplasm Medications: New polyethylene glycol 3350 (Miralax) Take as directed by mouth the day before your procedure. 238 grams PO ONCE 1 day PRN 238 grams 0RF laxative effect hydrocortisone 2.5% (Proctosol HC) 1 appl PA BEDTIME PRN 30 grams 3RF hemorrhoids bisacodyl (Dulcolax (bisacodyl)) Day before procedure, prep day Take 4 tablets by mouth upon awakening followed by large glass of water 20 mg (4 x 5 mg) PO ONCE 1 day 4 tabs 0RF colonoscopy prep Z12.11 - Encounter for screening for malignant neoplasm of colon pantoprazole 20 mg PO QAM 30 tabs 6RF Patient Instructions: EGD, colonoscopy, MiraLax Gatorade prep, reviewed literature given Discussed diverticulosis/diverticulitis ER protocol Reflux precautions reviewed PPI, daily, be consistent Encouraged to call with any questions or concerns Coding Level of Care Code Est Pt Level 4 (33785) Diagnoses Hospital discharge follow-up Z09 Acute diverticulitis K57.92 Acid reflux K21.9 Time Spent (min) 35
[2023-04-17 10:21] VITALS: BP 155/84; PULSE 77; BMI 30.7
== END 2023-04-17 11:04 | disposition home or self-care (01) ==
PROVIDERS: PCP Internal Medicine Geriatric Medicine; Visit Provider Physician Assistant
DX: Z09 Encounter for follow-up examination after completed treatment for conditions other than malignant neoplasm (principal); K57.92 Diverticulitis of intestine, part unspecified, without perforation or abscess without bleeding; K21.9 Gastro-esophageal reflux disease without esophagitis
CPT/HCPCS: 99214

== ENCOUNTER → 2023-04-17 10:10 | Outpatient (BNVA) | payer OTHER, SELFPAY | PROVIDERS: PCP Internal Medicine Geriatric Medicine; Visit Provider Physician Assistant | DX: Z09 Encounter for follow-up examination after completed treatment for conditions other than malignant neoplasm (principal); K57.92 Diverticulitis of intestine, part unspecified, without perforation or abscess without bleeding; K21.9 Gastro-esophageal reflux disease without esophagitis | CPT/HCPCS: 99212 ==

== ENCOUNTER 2023-06-13 20:57 | Emergency (ER) | payer OTHER, SELFPAY ==
--- NOTE | ~2023-06-13 | XR_ITS ---
EXAMINATION: XR CHEST CLINICAL INFORMATION: Chest pain COMPARISON: Chest x-ray May 27, 2019 TECHNIQUE: 2 views of the chest were obtained. FINDINGS: No significant abnormality is noted involving the heart, lungs, mediastinum, bony thorax or soft tissues. XR/XR chest 2V IMPRESSION: Unremarkable examination.
[2023-06-13 20:59] VITALS: BP 174/101; PULSE 86; RESP 18; TEMP 36.9; O2SAT 99; BMI 30.4
--- NOTE | 2023-06-13 21:04 | ECG_ITS ---
Test Reason : CGEST PAIN Blood Pressure : / mmHG Vent. Rate : 083 BPM Atrial Rate : 083 BPM P-R Int : 120 ms QRS Dur : 066 ms QT Int : 374 ms P-R-T Axes : 036 -07 009 degrees QTc Int : 439 ms Normal sinus rhythm Cannot rule out Anterior infarct (cited on or before 05-NOV-2021) Abnormal ECG When compared with ECG of 21-MAR-2023 11:48, No significant change was found Referred By: Generic ED Physician Electronically Signed By:Chirag Delacruz
[2023-06-13 21:17] LABS: MANUAL DIFF FLAG NO
[2023-06-13 21:18] LABS: Basophils Percent Auto 0.4 % (0-2); Eosinophils Absolute Auto 0.2 X10*3/uL (0.0-0.4); Hematocrit 36.6 % (37.0-47.0); Hemoglobin 12.3 g/dl (12.0-16.0); Imm Gran Abs Auto 0.03 X10*3/uL (0.00-0.03); Imm Gran Pct Auto 0.4 % (0.0-0.4); Lymphocytes Absolute Auto 2.7 X10*3/uL (1.2-4.9); Mean Corpuscular HGB Conc 33.6 g/dl (31.0-35.0); Mean Corpuscular Hemoglobin 28.2 pg (27.0-33.0); Mean Corpuscular Volume 83.9 fL (80.0-98.0); Mean Platelet Volume 8.4 fL (9.4-12.3); Monocytes Absolute Auto 0.5 X10*3/uL (0.1-1.2); Monocytes Percent Auto 6.5 % (2-11); Neutrophils Absolute Auto 4.8 x10*3/uL (2.0-8.3); Neutrophils Percent Auto 57.7 % (45-73); Platelet Count 295 X10*3/uL (160-400); Red Blood Count 4.36 X10*6/uL (4.20-5.50); Red Cell Distribution Width 13.2 % (11.0-16.0); White Blood Count 8.3 X10*3/uL (4.8-10.8)
[2023-06-13 21:31] LABS: Alanine Aminotransferase 22 U/L (0-31); Albumin Level 4.2 g/dL (3.5-5.0); Alkaline Phosphatase 73 U/L (39-117); Anion Gap 14 (12-20); Aspartate Amino Transferase 19 U/L (5-31); Bilirubin Total 0.2 mg/dL (0.0-1.0); Blood Urea Nitrogen 14 mg/dL (9-16); Calcium 9.4 mg/dL (8.4-10.2); Carbon Dioxide 24 mmol/L (22-29); Chloride 108 mmol/L (96-108); Creatinine Clr Calc Pharmacy 52.4; Estimated Glomerular Filt Rate > 60; Glucose Random 145 mg/dL (60-115); Potassium 3.8 mmol/L (3.3-5.1); Sodium 142 mmol/L (135-145)
[2023-06-13 21:39] LABS: Troponin-I High Sensitivity < 2.7 ng/L (<3.5-17.0)
--- NOTE | 2023-06-13 22:51 | ED.CHESTPAIN ---
HPI - Chest Pain General Chief Complaint: Chest Pain Stated Complaint: Chest pain Time Seen by Provider: 06/13/23 22:51 Source: patient and educational interpreter Mode of arrival: ambulatory Limitations: language barrier History of Present Illness HPI narrative: Patient is a 72 year old assigned female at with a history of GERD and HTN presenting to the emergency department today with intermittent central chest pain. Patient states that over the last few hours she has had intermittent central chest pain that is sharp and burning in sensation. Patient denies any dizziness, lightheadedness, abdominal pain, nausea, vomiting, fever, chills, blurry vision, double vision, loss of vision, difficulty breathing, shortness of breath, back pain, night sweats, pain with urination, increased urinary frequency, increased urinary urgency, blood in her urine or stool, syncope or a near syncopal episode, recent trauma or falls, bowel incontinence, bladder incontinence, bowel retention, bladder retention, or any other complaints at this time. MD complaint: chest pain Related Data Home Medications Medication Instructions Recorded Confirmed acetaminophen 650 mg 650 mg PO Q12H PRN Pain 11/17/20 03/21/23 tablet,extended release (Tylenol Arthritis Pain) albuterol sulfate 90 mcg/actuation 2 puff inhalation Q4H 03/21/23 03/21/23 aerosol inhaler cholecalciferol (vitamin D3) 25 25 mcg PO DAILY 03/21/23 03/21/23 mcg (1,000 unit) tablet cyanocobalamin (vitamin B-12) 1,000 mcg PO DAILY 03/21/23 03/21/23 1,000 mcg tablet garlic 1 cap PO DAILY 03/21/23 03/21/23 loratadine 10 mg tablet 10 mg PO DAILY 04/17/23 Previous Rx's Medication Instructions Recorded bisacodyl 5 mg tablet,delayed 20 mg (4 x 5 mg) PO ONCE 04/17/23 release (Dulcolax (bisacodyl)) colonoscopy prep 1 day #4 tabs hydrocortisone 2.5 % topical cream 1 appl ID BEDTIME PRN hemorrhoids 04/17/23 with perineal applicator #30 grams (Proctosol HC) pantoprazole 20 mg tablet,delayed 20 mg PO QAM #30 tabs 04/17/23 release polyethylene glycol 3350 17 238 g PO ONCE PRN laxative effect 04/17/23 gram/dose oral powder (Miralax) 1 day #238 grams Allergies Allergy/AdvReac Type Severity Reaction Status Date / Time No Known Allergies Allergy Verified 04/17/23 10:25 Review of Systems Constitutional: Constitutional: Reports no additional constitutional complaints, Denies chills, Denies fever(s) and Denies night sweats Eyes: Eyes: Reports no additional eye complaints, Denies blurry vision, Denies change in vision, Denies diplopia, Denies eye discharge, Denies loss of vision and Denies eye pain ENT: Denies dizziness Cardiovascular: Cardiovascular: Reports no additional cardiovascular complaints, Reports chest pain (intermittent), Denies lightheadedness, Denies Loss of Consciousness and Denies dyspnea Respiratory: Respiratory: Reports no additional respiratory complaints and Denies dyspnea Gastrointestinal: Gastrointestinal: Reports no additional gastrointestinal complaints, Denies abdominal pain, Denies melena, Denies hematochezia, Denies change in bowel habits and Denies change in stool character Genitourinary: Genitourinary: Denies hematuria, Denies urinary frequency, Denies dysuria, Denies urinary incontinence, Denies urinary hesitancy and Denies urinary urgency Musculoskeletal: Musculoskeletal: Reports no additional musculoskeletal complaints, Denies numbness and Denies tingling Neurologic: Denies dizziness, Denies loss of vision, Denies numbness and Denies tingling Psychiatric: Psychiatric: Reports no additional psychiatric complaints Endocrine: Endocrine: Reports no additional endocrine complaints Hematologic/Lymphatic: Hematologic/Lymphatic: Reports no additional hematologic/lymphatic complaints Allergic/Immunologic: Allergic/Immunologic: Reports no additional allergic/immunologic complaints [facility] Past Medical History Attestation statement: The following information was validated with the patient. Source: old records reviewed and nursing notes reviewed Medical History Hospital discharge follow-up Acute diverticulitis Hypertension Syncope and collapse Right knee pain Left hand pain Tendonitis Arthritis Surgical History Status post hardware removal Hx of colonoscopy History of hand surgery Family History Family History Mother Alzheimer disease Hypertension Dementia Father Hypertension Social History Social History Household Members: Spouse Housing: Apartment Do you presently have visiting nurse or other home services: Yes Alcohol intake: never Comment: pt refused bed alarm Patient Tobacco Use Status: Never used Tobacco e-Cigarette/Vaping Use: Never Used Advance Directives: No Advance Directives Information Provided: No service: No Current occupational status: retired Current occupation: rt handed Physical Exam Vital Signs: Vital Signs: Last Vital Signs Temp 98.0 F 06/13/23 23:10 Pulse 71 06/13/23 23:10 Resp 18 06/13/23 23:10 BP 121/53 L 06/13/23 23:10 Pulse Ox 96 06/13/23 23:10 O2 Del Method Room Air 06/13/23 23:10 BMI result Body Mass Index 30.4 Const: General: cooperative, no acute distress, alert and awake Nutritional Appearance: well nourished Orientation/consciousness: patient oriented x3 Limitations: no limitations HEENT: Head: Yes normal to inspection and Yes atraumatic Ears: hearing grossly normal bilaterally and external ears normal General nose exam: Normal external nose present, no nasal discharge noted and no epistaxis Face and sinus: Yes normal facial exam, No abrasion and No laceration Mouth: Normal oral and palatal mucosa present, no drooling and no muffled voice Eyes: General: appearance normal, both eyes and all related structures Periorbital: periorbital findings normal Eyelids: Yes eyelids normal Conjunctivae: conjunctivae normal Pupils: Equal, round and reactive pupils present EOM: EOMs intact bilaterally Neck: Neck: Yes normal visual inspection, Yes full ROM and Yes no lymphadenopathy Chest: Chest palpation & inspection: normal inspection of the chest Resp: Effort & Inspection: normal respiratory effort and able to speak in complete sentences Auscultation: clear to auscultation bilaterally Cardio: Rate: regular rate Rhythm: regular rhythm GI: Inspection: Yes normal to inspection Neuro: General: patient oriented x3 and moves all extremities Cranial nerves: Yes Equal, round and reactive pupils present Cognition (Neuro): normal cognition Motor exam (neuro): 5/5 motor strength present throughout Sensory Exam: Normal double simultaneous stimulation for sensation Coordination: [id number] test normal Extrem: General: Yes normal to inspection, Yes full ROM and Yes capillary refill normal Psych: Appearance: grossly normal Mental Status: mental status grossly normal Affect: normal affect Attitude: cooperative Thought process: Normal thought process present Thought content: Normal thought content present Insight: Good insight present (Psych) Medications Administered Discontinued Medications Generic Name Dose Route Start Last Admin Trade Name Juancarlos PRN Reason Stop Dose Admin Al Hydroxide/Mg Hydroxide 15 ml 06/13/23 23:11 06/13/23 23:25 Magnesium Hydrox/Alum Hydrox 30 Ml Oral.Susp PO 06/13/23 23:12 15 ml ONCE ONE Administration Omeprazole 20 mg 06/13/23 23:11 06/13/23 23:26 Omeprazole 20 Mg Capsule.Dr PO 06/13/23 23:12 20 mg ONCE ONE Administration Medical Decision Making Medical Decision Making MDM Narrative: Patient is a 72 year old assigned female at with a history of GERD and HTN presenting to the emergency department today with intermittent central chest pain. Patient's physical exam was unremarkable. Patient's blood work was unremarkable. Patient's EKG was unremarkable. Patient's chest x-ray showed no acute process. I explained my physical exam findings as well as all test results to the patient. I answered all questions asked by the patient. I stressed the importance of the patient taking her medication as prescribed. I stressed the importance of the patient following up with her primary care provider. I stressed the importance of the patient returning to the emergency department immediately if her symptoms were to worsen or if she were to develop any dizziness, shortness of breath, difficulty breathing, chest pain, blurry vision, loss of vision, nausea, vomiting, abdominal pain, fever, chills, back pain, or any other complaints. Patient verbalized agreement and understanding with this treatment plan and discharge. Differential Diagnosis Differential Diagnoses: The differential diagnosis associated with the presentation includes Chest pain NSTEMI STEMI GERD Admission/Observation Consideration of admission/observation: Escalation of care including admission/observation considered Patient would have been admitted to the hospital had her work up had any findings where hospital admission was appropriate and her clinical presentation warranted hospital admission. Lab Data [facility] Lab Attestation statement: I reviewed the patient's lab results. My interpretation of these results are in the MDM Rationale portion of this note. 06/13/23 21:13 06/13/23 21:13 Labs: Lab Results 06/13/23 06/13/23 Range/Units 21:13 23:26 WBC 8.3 (4.8-10.8) X10*3/uL RBC 4.36 (4.20-5.50) X10*6/uL Hgb 12.3 (12.0-16.0) g/dl Hct 36.6 L (37.0-47.0) % MCV 83.9 (80.0-98.0) fL MCH 28.2 (27.0-33.0) pg MCHC 33.6 (31.0-35.0) g/dl RDW 13.2 (11.0-16.0) % Plt Count 295 (160-400) X10*3/uL MPV 8.4 L (9.4-12.3) fL Immature Gran % (Auto) 0.4 (0.0-0.4) % Neut % (Auto) 57.7 (45-73) % Lymph % (Auto) 33.0 (20-40) % [place] % (Auto) 6.5 (2-11) % Eos % (Auto) 2.0 (0-4) % Baso % (Auto) 0.4 (0-2) % Lymph # (Auto) 2.7 (1.2-4.9) X10*3/uL [place] # (Auto) 0.5 (0.1-1.2) X10*3/uL Eos # (Auto) 0.2 (0.0-0.4) X10*3/uL Baso # (Auto) 0.0 (0.0-0.2) X10*3/uL Abs Immat Gran (auto) 0.03 (0.00-0.03) X10*3/uL Absolute Neuts (auto) 4.8 (2.0-8.3) x10*3/uL Absolute Nucleated RBC 0.000 (0.0-0.012) X10*3/uL Nucleated RBC % (auto) 0.0 (0.0-0.2) /100WBC Sodium 142 (135-145) mmol/L Potassium 3.8 (3.3-5.1) mmol/L Chloride 108 (96-108) mmol/L Carbon Dioxide 24 (22-29) mmol/L Anion Gap 14 (12-20) BUN 14 (9-16) mg/dL Creatinine 0.84 (0.5-1.4) mg/dL Estim Creat Clear Calc 52.4 Estimated GFR > 60 Random Glucose 145 H (60-115) mg/dL Calcium 9.4 (8.4-10.2) mg/dL Total Bilirubin 0.2 (0.0-1.0) mg/dL AST 19 (5-31) U/L ALT 22 (0-31) U/L Alkaline Phosphatase 73 (39-117) U/L Troponin I High Sens < 2.7 < 2.7 (<3.5-17.0) ng/L B-Natriuretic Peptide 37 (<100) pg/mL Total Protein 8.0 (6.5-8.0) g/dL Albumin 4.2 (3.5-5.0) g/dL COVID-19 (ENZO) Negative (Negative) COVID-19 Clin Com See Note Influenza Type A (ANASTASIIA) Negative (Negative) Influenza Type B (ANASTASIIA) Negative (Negative) Influenza A & B Note See Note Independent Interpretation I performed an independent interpretation of an: EKG and Plain X-Ray Interpretation: My interpretation is in agreement with the radiologist's impression of this imaging study. EXAMINATION: XR CHEST CLINICAL INFORMATION: Chest pain COMPARISON: Chest x-ray May 27, 2019 TECHNIQUE: 2 views of the chest were obtained. FINDINGS: No significant abnormality is noted involving the heart, lungs, mediastinum, bony thorax or soft tissues. XR/XR chest 2V IMPRESSION: Unremarkable examination. Dictated By: Adam Elder MD Signed By: Electronically signed by Adam Elder MD 06/13/23 1489 Vent. Rate: 083 BPM Atrial Rate: 083 BPM P-R Int: 120 ms QRS Dur: 066 ms QT Int: 374 ms P-R-T Axes: 037 -07 009 degrees QTc Int: 439 ms Normal sinus rhythm Cannot rule out Anterior infarct (cited on or before 05-NOV-2021) Abnormal ECG 06/13/232107 Radiology Impression Discussion of test interpretation with radiology: I have reviewed the radiologist's reading. Scores Heart Score History: -0- slightly suspicious ECG: -0- normal Age: -2- > or = 65 Risk factory: -1- 1 or 2 risk factors Troponin: -0- < or = normal limit Score: 3 Risk: 1.7% Discharge Plan Discharge Clinical Impression: Atypical chest pain Patient Disposition: Home, Self-Care Instructions: Chest Pain (DC) Additional Instructions: Follow up with your primary care provider. Return to the emergency department immediately if your symptoms worsen or if you develop any dizziness, shortness of breath, difficulty breathing, chest pain, blurry vision, loss of vision, nausea, vomiting, abdominal pain, fever, chills, back pain, or any other complaints. Marian un seguimiento con carreno proveedor de atenci?n primaria. Regrese al departamento de emergencias inmediatamente si hira s?ntomas empeoran o si presenta mareos, dificultad para respirar, dificultad para respirar, dolor en el pecho, visi?n borrosa, p?rdida de la visi?n, n?useas, v?mitos, dolor abdominal, fiebre, escalofr?os, dolor de espalda o cualquier otras quejas. Prescriptions: No Action cyanocobalamin (vitamin B-12) 1,000 mcg Tablet 1,000 mcg PO DAILY garlic Capsule 1 cap PO DAILY albuterol sulfate 90 mcg/actuation HFA aerosol inhaler 2 puff inhalation Q4H cholecalciferol (vitamin D3) 25 mcg (1,000 unit) Tablet 25 mcg PO DAILY acetaminophen [Tylenol Arthritis Pain] 650 mg tablet extended release 650 mg PO Q12H PRN (Reason: Pain) loratadine 10 mg tablet 10 mg PO DAILY bisacodyl [Dulcolax (bisacodyl)] 5 mg tablet,delayed release (DR/EC) 20 mg PO ONCE 1 Days Qty: 4 0RF Rx Instructions: Day before procedure, prep day Take 4 tablets by mouth upon awakening followed by large glass of water polyethylene glycol 3350 [Miralax] 17 gram/dose powder 238 g PO ONCE PRN (Reason: laxative effect) 1 Days Qty: 238 0RF Rx Instructions: Take as directed by mouth the day before your procedure. pantoprazole 20 mg tablet,delayed release (DR/EC) 20 mg PO QAM Qty: 30 6RF hydrocortisone [Proctosol HC] 2.5 % cream with perineal applicator 1 appl ID BEDTIME PRN (Reason: hemorrhoids) Qty: 30 3RF Referrals: Name,MD Martín [Primary Care Provider] - Interventions: ED Discharge Assessment Last Done: 06/14/23 00:55 Print Language: Faroese
[2023-06-13 23:10] VITALS: BP 121/53; PULSE 71; RESP 18; TEMP 36.7; O2SAT 96
[2023-06-13] MEDS: Magnesium Hydrox/Alum Hydrox 30 ML ORAL.SUSP 15 ML PO (23:25)
[2023-06-13] MEDS: Omeprazole 20 MG CAPSULE.DR PO (23:26)
[2023-06-13 23:28] VITALS: PULSE 71
[2023-06-13 23:54] LABS: COVID-19 Test Negative (Negative); IDNOW Serial# 152EDE1D
[2023-06-13 23:57] LABS: IDNOW Serial# 08D9AD1C; Influenza A Negative (Negative); Influenza B2 Negative (Negative)
[2023-06-13 23:58] LABS: B Type Natriuretic Peptide 37 pg/mL (<100)
[2023-06-14 00:03] LABS: Troponin-I High Sensitivity < 2.7 ng/L (<3.5-17.0)
== END 2023-06-14 01:12 | disposition home or self-care (01) ==
PROVIDERS: Physician Assistant Medical; Emergency Provider Emergency Medicine; PCP Internal Medicine Geriatric Medicine
DX: R07.89 Other chest pain (principal); I10 Essential (primary) hypertension; Z11.52 Encounter for screening for COVID-19
CPT/HCPCS: 36415; 71046; 80053; 83880; 84484; 85025; 87502; 87635; 93005; 99283; 99285

== ENCOUNTER → 2023-06-13 21:04 | Outpatient (BNV) | payer OTHER, SELFPAY | PROVIDERS: Emergency Provider Emergency Medicine; PCP Internal Medicine Geriatric Medicine; Visit Provider Internal Medicine Cardiovascular Disease | DX: R07.9 Chest pain, unspecified (principal) | CPT/HCPCS: 93010 ==

== ENCOUNTER 2023-07-27 14:44 | Outpatient (REF) | payer OTHER, SELFPAY ==
--- NOTE | ~2023-07-27 | MR_ITS ---
EXAMINATION: MR SHOULDER WITHOUT CONTRAST, LEFT CLINICAL INFORMATION: Shoulder pain. Limited range of motion. COMPARISON: X-rays of the left shoulder April 2021. TECHNIQUE: MRI of the shoulder without contrast was performed on a high-field scanner. FINDINGS: ROTATOR CUFF: SUPRASPINATUS: There is irregular abnormal signal noted throughout the anterior portion of the supraspinatus tendon. This involves the intrasubstance portion of the tendon at the insertion and the articular portion of the tendon in the mid substance portion. This has the appearance of an irregular partial tear involving the articular side and intrasubstance. This extends over 21 mm transverse and 1 cm AP. There is no atrophy of fatty infiltration of the muscle. BICEPS: Normal. INFRASPINATUS: Mild heterogeneity compatible tendinosis and perhaps small areas of partial tearing but no measurable defect. There is a 3 mm cyst abutting the posterior aspect of the posterior tendon at the insertion, likely sequela of a small partial tear. Muscle normal. TERES MINOR: Normal. SUBSCAPULARIS: There is focal increased signal near the insertion of the upper portion of the tendon likely reflecting an old partial tear measuring approximately 3 mm transverse and 2 mm craniocaudal. The tear is likely intrasubstance without tendon retraction. Muscle normal. CORACOACROMIAL ARCH: The undersurface of the acromion is curved with no subacromial spur. There is feko-hd-pxnbggod hypertrophic osteoarthritis of the acromioclavicular joint. Small joint effusion. BURSA: Normal. LABRUM/CAPSULE: Normal. GLENOHUMERAL JOINT/MARROW: There is non-uniform but primarily high-grade cartilage loss throughout a broad area of the central glenoid. There is associated subchondral cystic change and surrounding edema. There is also scattered areas of cartilage heterogeneity throughout the humeral articular surface. There is additional high-grade cartilage loss noted along the apex of humeral head over near measuring approximately 2 cm transverse. There are marginal osteophytes along the inferior aspect of the humeral head. Probable small loose body measuring 2 mm in the axillary recess. Findings indicative of a vhctogzi-wa-kopyvd osteoarthritis. There is a mild joint effusion and synovitis. MR/MR shoulder LT wo con IMPRESSION: 1. Uhyihxnf-iu-ktwhbf osteoarthritis of the glenohumeral joint. 2. Kdos-ka-freceuqj osteoarthritis of the acromioclavicular joint. 3. Irregular partial tear of the supraspinatus tendon. 4. Tendinosis and perhaps small areas of partial tearing of the infraspinatus 5. Suspect small intrasubstance partial tear at the insertion of the subscapularis.
== END 2023-07-27 14:45 | disposition home or self-care (01) ==
LOC: HO.MRI 14:44
PROVIDERS: PCP Internal Medicine Geriatric Medicine; Visit Provider Internal Medicine Geriatric Medicine
DX: M25.512 Pain in left shoulder (principal); G89.29 Other chronic pain
CPT/HCPCS: 73221

== ENCOUNTER 2023-08-12 08:58 | Day surgery (SDC) | payer OTHER, SELFPAY ==
--- NOTE | 2023-08-11 09:46 | HO.ANESPROP2 ---
Documented by User: Saima Robertson NP 08/11/23 09:50 HPI - Anesthesia Eval Consult details Narrative: 72yo F for Upper Endoscopy and Colonoscopy [facility] Active Problems Active Problems: All Active Problems (Updated 06/15/23 @ 00:01 by Shan Laird) Hypertension (Acute) Acid reflux (Acute) Ascending aorta dilatation (Acute) Tendinitis of left rotator cuff (Acute) Osteoarthritis of left knee (Acute) Osteoarthritis of right knee (Acute) Past Medical History Medical History Hospital discharge follow-up Acute diverticulitis Hypertension Syncope and collapse Right knee pain Left hand pain Tendonitis Arthritis Family History Family History Mother Alzheimer disease Hypertension Dementia Father Hypertension Surgical History Surgical History Status post hardware removal Hx of colonoscopy History of hand surgery Social History Social History Household Members: Spouse Housing: Apartment Do you presently have visiting nurse or other home services: Yes Alcohol intake: never Comment: pt refused bed alarm Patient Tobacco Use Status: Never used Tobacco e-Cigarette/Vaping Use: Never Used Use of substances other than those prescribed or required for medical reasons: No Are you DNR?: No Advance Directives: No Advance Directives Information Provided: Yes service: No Current occupational status: retired Current occupation: rt handed Meds Allergies Allergy/AdvReac Type Severity Reaction Status Date / Time No Known Allergies Allergy Verified 04/17/23 10:25 Home Medications Medication Instructions Recorded Confirmed Last Taken Type acetaminophen 650 mg 650 mg PO Q12H PRN Pain 11/17/20 08/12/23 Unknown History tablet,extended release (Tylenol Arthritis Pain) albuterol sulfate 90 mcg/actuation 2 puff inhalation Q4H 03/21/23 08/12/23 Unknown History aerosol inhaler cholecalciferol (vitamin D3) 25 25 mcg PO DAILY 03/21/23 08/12/23 Unknown History mcg (1,000 unit) tablet cyanocobalamin (vitamin B-12) 1,000 mcg PO DAILY 03/21/23 08/12/23 Unknown History 1,000 mcg tablet garlic 1 cap PO DAILY 03/21/23 08/12/23 Unknown History loratadine 10 mg tablet 10 mg PO DAILY 04/17/23 08/12/23 Unknown History Exam Narrative Narrative: EKG 2023 Vent. Rate : 083 BPM Atrial Rate : 083 BPM P-R Int : 120 ms QRS Dur : 066 ms QT Int : 374 ms P-R-T Axes : 036 -07 009 degrees QTc Int : 439 ms Normal sinus rhythm Cannot rule out Anterior infarct (cited on or before 05-NOV-2021) Abnormal ECG When compared with ECG of 21-MAR-2023 11:48, No significant change was found ECHO 2022 Conclusions: - The left ventricular systolic function is normal. The calculated ejection fraction is 63% by biplane method. - No obvious valvular pathology seen on this study. - There is mild dilatation of the ascending aorta measuring 4.00 cm. Assessment and Plan Assessment Anesthesia Assessment: Chart Reviewed Documented by User: Sandy Brownlee MD 08/12/23 10:13 [facility] Active Problems Active Problems: All Active Problems (Updated 08/12/23 @ 09:52 by Sandy Brownlee MD) Hypertension (Acute) Acid reflux (Acute) Ascending aorta dilatation (Acute) Tendinitis of left rotator cuff (Acute) Osteoarthritis of left knee (Acute) Osteoarthritis of right knee (Acute) Mild dilatation of the ascending aorta measuring 4.00. Being followed. For check next week Past Medical History Medical History Hospital discharge follow-up Acute diverticulitis Hypertension Syncope and collapse Right knee pain Left hand pain Tendonitis Arthritis Family History Family History Mother Alzheimer disease Hypertension Dementia Father Hypertension Family history of problems with anesthesia: No Surgical History Surgical History Status post hardware removal Hx of colonoscopy History of hand surgery History of Problems with Anesthesia: No Social History Social History Household Members: Spouse Housing: Apartment Do you presently have visiting nurse or other home services: Yes Alcohol intake: never Comment: pt refused bed alarm Patient Tobacco Use Status: Never used Tobacco e-Cigarette/Vaping Use: Never Used Use of substances other than those prescribed or required for medical reasons: No Are you DNR?: No Advance Directives: No Advance Directives Information Provided: Yes service: No Current occupational status: retired Current occupation: rt handed Meds Allergies Allergy/AdvReac Type Severity Reaction Status Date / Time No Known Allergies Allergy Verified 04/17/23 10:25 Home Medications Medication Instructions Recorded Confirmed Last Taken Type acetaminophen 650 mg 650 mg PO Q12H PRN Pain 11/17/20 08/12/23 Unknown History tablet,extended release (Tylenol Arthritis Pain) albuterol sulfate 90 mcg/actuation 2 puff inhalation Q4H 03/21/23 08/12/23 Unknown History aerosol inhaler cholecalciferol (vitamin D3) 25 25 mcg PO DAILY 03/21/23 08/12/23 Unknown History mcg (1,000 unit) tablet cyanocobalamin (vitamin B-12) 1,000 mcg PO DAILY 03/21/23 08/12/23 Unknown History 1,000 mcg tablet garlic 1 cap PO DAILY 03/21/23 08/12/23 Unknown History loratadine 10 mg tablet 10 mg PO DAILY 04/17/23 08/12/23 Unknown History Exam Height,Weight and Vital Signs: Height 4 ft 11 in Weight 68.039 kg Vital Signs Temp Pulse Resp BP Pulse Ox O2 Del Method 08/12/23 09:40 97.4 F 92 18 144/88 H 98 Room Air Airway Mallampati Class: II TM Dist: >3cm Neck ROM: Full Loose/Missing/Broken Teeth: Yes (Missing teeth back. Denies broken or loose teeth) Heart: RRR Lungs: CTAB Assessment and Plan Assessment Anesthesia Assessment: Anesthesia Plan Discussed and Chart Reviewed Final Anesthetic Review Family History of Problems with Anesthesia: No History of Problems with Anesthesia: No NPO: Yes ASA Class: II Final Preanesthetic Review: No Changes in Pt Med Stat, Meds/Allgs Chart Reviewed, Consent Obtained/Reviewed and Anes Risks/Benef Reviewed Patient Risk: Intermediate Procedure Risk: Low Assessment/Block/Sedation in SS: Assess/Block/Sedation-SS Anesthetic Plan Anesthetic Plan: MAC: and TIVA Disposition: Standard PACU
[2023-08-12 09:40] VITALS: BP 144/88; PULSE 92; RESP 18; TEMP 36.3; O2SAT 98; BMI 30.3
[2023-08-12] MEDS: Lactated Ringers 1,000 ML 100 ML IVCONT (10:01)
--- NOTE | 2023-08-12 11:12 | MHC.SHP ---
Pre-Procedural Eval Section A - 24 Hr Update-Section A only Date of Service: 08/12/23 Section B - Complete if H&P > 30 days Chief Complaint: Diverticulitis of intestine,gerd Details of Present Illness: Hypertension Tendonitis Arthritis Surgical History Hx of colonoscopy History of hand surgery Present Medications: see Short Stay Collaborative assessment Allergies: Allergies Allergy/AdvReac Type Severity Reaction Status Date / Time No Known Allergies Allergy Verified 04/17/23 10:25 Review of Systems Review of Systems Comment: Ten point ROS negative Exam Exam Comment: Gen appear: No acute distress HEENT: no icterus Chest: No overt resp distress Abd: soft, nontender, nondistended Psych: Stable affect, answering questions appropriately Neuro: A/Ox3 noted to move all extremities spontaneously Ext: no peripheral edema Plan I have reviewed the history and physical and performed a pertinent physical examination on my patient. No changes have occurred unless specified. Patient also has occasional difficulty swallowing, so if any narrowing noted, may also undergo dilation. Time Spent With Patient Time: Total time managing care of this patient today ____ minutes.
--- NOTE | 2023-08-12 11:13 | P.OP_ITS ---
Operative Note Operative Note Date of Service: 08/12/23 Narrative: Procedure: Upper endoscopy and colonoscopy Indication: Reflux, Hx of diverticulitis Endoscopist: Kelsey Spencer MD Anesthesia Provider: Dr Kwong Anesthesia type: MAC Instrument: Olympus [id number] ?? EGD Procedure:?? The procedure, indications, preparation and potential complications were reviewed with the patient, who indicated understanding and gave written informed consent to proceed. A physical exam was performed. The endoscope was introduced through the mouth, and advanced to the duodenum. The mucosa was carefully examined on slow withdrawal of the endoscope. The patient tolerated the procedure well. There were no immediate complications.? ? EGD Findings:? * Esophagus:? Multiple linear ulceration and erosions at the GE junction measuring 1 cm were noted compatible with erosive esophagitis. GE junction was at 30 cm. Small hiatal hernia with diaphragmatic pinch was noted at 35 cm * Stomach:? Mild erythema in the antrum of the stomach. There was a 2 cm subepi thelial nodule in the distal body of the stomach along the greater curvature. Cushion sign was positive. Bite on bite cold forceps biopsies were taken for histology. Retroflexion was performed in the cardia that showed a Hill grade 3 hiatal hernia. Random cold forceps biopsies were taken to rule out H Pylori. * Duodenum: Erythema and ulceration duodenal bulb were noted.. Cold forceps biopsies were taken for histology. Colonoscopy Procedure: The patient was then turned for the colonoscopy. A digital rectal exam was performed which was abnormal for ext hemorrhoids. A distal attachment cap was affixed to the tip of the scope which was then inserted through the anus and advanced through the colon to the cecum at 70 cm and terminal ileum. Appendiceal orifice and ileocecal valve were identified. Mucosa was carefully examined under high definition white light as the instrument was slowly withdrawn in a retrograde panoramic fashion. Retroflexion was performed in the rectum. The procedure was not difficult. There were no immediate obvious complications. The quality of the prep was BBPS: 2+2+2 = adequate Limitations: No limitations Colonoscopy Findings: Mucosa: Normal to cecum and terminal ileum. Protruding lesions: * Medium internal hemorrhoids Excavated lesions: * Mild diverticulosis of sigmoid colon was noted Impressions:? * Grade B esophagitis * Hiatal hernia * Antral gastritis * Subepithelial gastric nodule ? Lipoma * Bulbar duodenitis * Sigmoid diverticulosis * External and internal hemorrhoids Recommendations: - Follow path results - Start omeprazole 20 mg once daily x8 weeks and then decrease to 10mg once daily- will likely need it indefinitely due to presence of erosive esophagitis - Avoid NSAIDs - Repeat colonoscopy in 5-7 years due to prep
[2023-08-12 11:59] VITALS: BP 105/64; PULSE 73; RESP 16; TEMP 36.7; O2SAT 99
[2023-08-12 12:04] VITALS: BP 102/71; PULSE 71; RESP 18; O2SAT 99
[2023-08-12 12:09] VITALS: BP 109/72; PULSE 80; RESP 18; O2SAT 100
[2023-08-12 12:14] VITALS: BP 123/79; PULSE 64; RESP 18; TEMP 36.6; O2SAT 98
== END 2023-08-12 13:34 | disposition home or self-care (01) ==
PROVIDERS: PCP Internal Medicine Geriatric Medicine; Visit Provider Internal Medicine
PROC: (CPT 43239; principal; 2023-08-12 11:00)
DX: Z12.11 Encounter for screening for malignant neoplasm of colon (principal); Z87.19 Personal history of other diseases of the digestive system; K57.30 Diverticulosis of large intestine without perforation or abscess without bleeding; K64.8 Other hemorrhoids; K64.4 Residual hemorrhoidal skin tags; K21.9 Gastro-esophageal reflux disease without esophagitis; K20.80 Other esophagitis without bleeding; K31.7 Polyp of stomach and duodenum; K29.50 Unspecified chronic gastritis without bleeding; K29.80 Duodenitis without bleeding; Z79.899 Other long term (current) drug therapy; I10 Essential (primary) hypertension
CPT/HCPCS: 43239; G0121; 88305; 88313; 88342; J2704

== ENCOUNTER → 2023-08-12 08:58 | Outpatient (BNV) | payer OTHER, SELFPAY | PROVIDERS: PCP Internal Medicine Geriatric Medicine; Visit Provider Internal Medicine | DX: K21.00 Gastro-esophageal reflux disease with esophagitis, without bleeding (principal); K29.80 Duodenitis without bleeding; K29.70 Gastritis, unspecified, without bleeding; K57.30 Diverticulosis of large intestine without perforation or abscess without bleeding; K64.8 Other hemorrhoids | CPT/HCPCS: 43239; 45378 ==

== ENCOUNTER 2023-09-09 11:54 | Outpatient (REF) | payer OTHER, SELFPAY ==
[2023-09-09 14:09] LABS: Anion Gap 12 (12-20); Blood Urea Nitrogen 12 mg/dL (9-16); Calcium 9.8 mg/dL (8.4-10.2); Carbon Dioxide 26 mmol/L (22-29); Chloride 108 mmol/L (96-108); Estimated Glomerular Filt Rate > 60; Glucose Random 113 mg/dL (60-115); Potassium 3.9 mmol/L (3.3-5.1); Sodium 142 mmol/L (135-145)
== END 2023-09-09 11:55 | disposition home or self-care (01) ==
LOC: HO.LAB 11:54
PROVIDERS: PCP Internal Medicine Geriatric Medicine; Visit Provider Internal Medicine
DX: I10 Essential (primary) hypertension (principal); I77.810 Thoracic aortic ectasia
CPT/HCPCS: 36415; 80048; 99212

== ENCOUNTER 2023-09-09 11:54 | Outpatient (AMB) | payer OTHER, SELFPAY ==
--- NOTE | 2023-09-09 12:32 | MHC.OFFVIS ---
Vital Signs 09/09/23 12:33 Height 4 ft 11 in Weight 152 lb 8.958 oz BMI 30.8 BP 160/80 H Blood Pressure Location Rt brachial Position Sitting Pulse 74 Pulse Source Pulse Oximeter Intake Visit Reasons: 6 mth f/up Facility Manager Histology Required: Yes Facility Manager Histology Name: Aby [id number]/abraham Accompanied by: Significant Other Allergies No Known Allergies Allergy (Verified 04/17/23 10:25) Medication List - Last Reconciled 09/09/23 by Murali Romano MD garlic 1 cap PO DAILY HPI Comments Details: Wendie returns for follow-up. Last issue seen regarding syncopal episodes. Possible orthostatic but not clear. She has not had any of those episodes since that time. Otherwise, no known cardiovascular issues. She underwent echocardiogram that showed mild ascending aortic dilatation but otherwise unremarkable. Her blood pressure trend shows normal as well as high blood pressures. She was put on amlodipine but it seems that she developed leg swelling and has not been taking it regularly. Today's blood pressure is again high. [facility] Medical History Hospital discharge follow-up Acute diverticulitis Hypertension Syncope and collapse Right knee pain Left hand pain Tendonitis Arthritis Surgical History Status post hardware removal Hx of colonoscopy History of hand surgery Family History Mother Alzheimer disease Hypertension Dementia Father Hypertension Social History Household Members: Spouse Housing: Apartment Do you presently have visiting nurse or other home services: Yes Alcohol intake: never Comment: pt refused bed alarm Patient Tobacco Use Status: Never used Tobacco e-Cigarette/Vaping Use: Never Used service: No Current occupational status: retired Current occupation: rt handed Review of Systems Const Denies chills, Denies fatigue, Denies fever(s), Denies frequent falls, Denies weakness, Denies weight gain and Denies weight loss ENT Denies dizziness Card Denies chest pain, Denies leg edema, Denies lightheadedness, Denies palpitations, Denies dyspnea and Denies dyspnea on exertion Resp Denies cough, Denies dyspnea and Denies dyspnea on exertion GI Denies hematochezia Musc Denies abnormal gait, Denies muscle weakness, Denies numbness, Denies radiating pain into limb and Denies tingling Neuro Denies abnormal gait, Denies dizziness, Denies frequent falls, Denies numbness, Denies tingling and Denies weakness Endo Denies fatigue and Denies palpitations Physical Exam Vital Signs: Last Vital Signs Pulse 74 09/09/23 12:33 BP 160/80 H 09/09/23 12:33 BMI result Body Mass Index 30.8 Const General: comfortable and no acute distress Orientation/consciousness: patient oriented x3 HEENT Other: Unremarkable Head: Yes normal to inspection Neck Neck: Yes normal visual inspection Chest Chest palpation & inspection: normal inspection of the chest Resp Auscultation: clear to auscultation bilaterally Cardio Palpation: normal PMI Heart sounds: S1 normal heart sound present, S2 normal heart sound present, no gallops, no murmurs and no rubs GI Palpation (GI): Soft to palpation Back/Spine/Pelvis Other: unremarkable Skin General skin exam: no rashes or lesions noted Neuro General: patient oriented x3 Extrem General: Yes normal to inspection Psych Mental Status: mental status grossly normal Assessment & Plan Assessment & Plan (1) Hypertension: Code(s): I10 - Essential (primary) hypertension Category: Medical Qualifiers: Hypertension type: primary hypertension Qualified Code(s): I10 - Essential (primary) hypertension Plan: Somewhat labile as she has both high as well as normal readings. Home pressures somewhere in the mid 130s to 140s systolic. Try small dose of losartan as she is getting leg swelling with amlodipine. BMP few days after starting this. (2) Ascending aorta dilatation: Code(s): I77.810 - Thoracic aortic ectasia Category: Medical Plan: Mild dilatation about 4 cm. Could be related to hypertension. We can recheck in a year or so. Orders: Orders Basic Metabolic Panel 1 Week I10 - Essential (primary) hypertension Medications: New losartan 25 mg PO DAILY 90 tabs 3RF Coding Level of Care Code Est Pt Level 3 (70527) Diagnoses Primary hypertension I10 Hypertension type: primary hypertension Ascending aorta dilatation I77.810
[2023-09-09 12:33] VITALS: BP 160/80; PULSE 74; BMI 30.8
== END 2023-09-09 12:49 | disposition home or self-care (01) ==
PROVIDERS: PCP Internal Medicine Geriatric Medicine; Visit Provider Internal Medicine
DX: I10 Essential (primary) hypertension (principal); I77.810 Thoracic aortic ectasia
CPT/HCPCS: 99213

== ENCOUNTER 2023-09-24 12:31 | Outpatient (REF) | payer OTHER, SELFPAY ==
[2023-09-24 14:09] LABS: Anion Gap 13 (12-20); Blood Urea Nitrogen 11 mg/dL (9-16); Calcium 9.6 mg/dL (8.4-10.2); Carbon Dioxide 25 mmol/L (22-29); Chloride 108 mmol/L (96-108); Estimated Glomerular Filt Rate > 60; Glucose Random 127 mg/dL (60-115); Potassium 3.8 mmol/L (3.3-5.1); Sodium 142 mmol/L (135-145)
== END 2023-09-24 12:32 | disposition home or self-care (01) ==
LOC: HO.LAB 12:31
PROVIDERS: PCP Internal Medicine Geriatric Medicine; Visit Provider Internal Medicine
DX: I10 Essential (primary) hypertension (principal)
CPT/HCPCS: 36415; 80048

== ENCOUNTER 2023-10-03 11:57 | Outpatient (AMB) | payer OTHER, SELFPAY ==
--- NOTE | 2023-10-03 12:23 | A.OFFVIS_ITS ---
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 Patient reports that she has pain all the time. She takes Tylenol and utilizes Icy Hot for her pain which only o ffers temporary relief. 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 Patient reports that she has pain all the time. She takes Tylenol and utilizes Icy Hot for her pain which only offers temporary relief. She has had left shoulder pain off and on for years and her primary pain complaint continues to be her left thumb. I treated her with cmc arthroplasty may years ago but she did not fare well. This, she states, has continued to bother her. [facility] Medical History Hospital discharge follow-up Acute diverticulitis Hypertension Syncope and collapse Right knee pain Left hand pain Tendonitis Arthritis Surgical History Status post hardware removal Hx of colonoscopy History of hand surgery Family History Mother Alzheimer disease Hypertension Dementia Father Hypertension Social History Household Members: Spouse Housing: Apartment Do you presently have visiting nurse or other home services: Yes Alcohol intake: never Comment: pt refused bed alarm Patient Tobacco Use Status: Never used Tobacco e-Cigarette/Vaping Use: Never Used service: No Current occupational status: retired Current occupation: rt handed Physical Exam Vital Signs: BMI result Body Mass Index 30.7 Extrem Other: pain with left humb extension and + CMC grind SHe has 4+/5 EC and pain with ER> 20 deg 25/80/120/HP Results Reviewed Results Reviewed: MRI left shoulder: 1. [id number] osteoarthritis of the glenohumeral joint. 2. [id number] osteoarthritis of the acromioclavicular joint. 3. Irregular partial tear of the supraspinatus tendon. 4. Tendinosis and perhaps small areas of partial tearing of the infraspinatus 5. Suspect small intrasubstance partial tear at the insertion of the subscapularis. Assessment & Plan Assessment & Plan (1) Osteoarthritis of left shoulder: Code(s): M19.012 - Primary osteoarthritis, left shoulder Category: Medical Plan: Wendie is actually not describing pasin with activity except occasionally when sleeping on her left. I described her diagnosis and some of the potential sequalea of non surgical treatment. She is not interested in treatment inclduing injections. SHe may see me as needed. (2) CMC arthritis, thumb, degenerative: Code(s): M18.9 - Osteoarthritis of first carpometacarpal joint, unspecified Category: Medical Plan: Thumb spica comfort splint and referral to Dr Cruz. Orders: Referrals Hand Surgery Referral M18.9 - Osteoarthritis of first carpometacarpal joint, unspecified Coding Level of Care Code New Pt Level 4 (54894) Diagnoses Osteoarthritis of left shoulder M19.012 CMC arthritis, thumb, degenerative M18.9
[2023-10-03 12:26] VITALS: BMI 30.7
== END 2023-10-03 13:15 | disposition home or self-care (01) ==
PROVIDERS: PCP Internal Medicine Geriatric Medicine; Visit Provider Orthopaedic Surgery
DX: M19.012 Primary osteoarthritis, left shoulder (principal); M18.9 Osteoarthritis of first carpometacarpal joint, unspecified
CPT/HCPCS: 99213

== ENCOUNTER → 2023-10-03 11:57 | Outpatient (BNVA) | payer OTHER, SELFPAY | PROVIDERS: PCP Internal Medicine Geriatric Medicine; Visit Provider Orthopaedic Surgery | DX: M19.012 Primary osteoarthritis, left shoulder (principal); M18.9 Osteoarthritis of first carpometacarpal joint, unspecified | CPT/HCPCS: 99212 ==

== ENCOUNTER → 2023-10-21 14:41 | Outpatient (REF) | payer OTHER, SELFPAY | LOC: HO.SL 14:41 | PROVIDERS: PCP Internal Medicine Geriatric Medicine; Visit Provider Internal Medicine Geriatric Medicine | DX: Z13.89 Encounter for screening for other disorder (principal) ==

== ENCOUNTER 2023-10-28 09:01 | Outpatient (REF) | payer OTHER, SELFPAY ==
--- NOTE | ~2023-10-28 | XR_ITS ---
EXAMINATION: XR HAND, LEFT CLINICAL INFORMATION: Pain in left hand, attention base of thumb/basal joint. COMPARISON: 07/05/2020, 09/14/2019, 06/22/2019. TECHNIQUE: 4 views of the left hand. FINDINGS: The bones are diffusely demineralized. Ulnar-minus variance. Radiopaque marker placed by technologist to indicate the area of concern as indicated by the patient adjacent to the distal aspect of the first metacarpal. Advanced degenerative changes in the first carpometacarpal joint with joint space narrowing and hypertrophic change. Mild degenerative changes in the first metacarpophalangeal joint. As previously noted, there has been prior resection of the trapezium. Mild degenerative changes in multiple IP joints. Redemonstration of 2 radiopaque punctate densities in the soft tissues at the dorsal aspect of the metacarpals projecting between the shafts of the second and third metacarpals, with focal overlying soft tissue swelling on the lateral view. XR/XR hand LT min 3V IMPRESSION: Advanced degenerative changes in the first carpometacarpal joint. Mild degenerative changes at multiple additional joints as detailed above.
== END 2023-10-28 09:02 | disposition home or self-care (01) ==
LOC: HO.HOSX 09:01
DX: Z13.89 Encounter for screening for other disorder (principal)
CPT/HCPCS: 73130; 99212

== ENCOUNTER 2023-10-28 09:46 | Outpatient (AMB) | payer OTHER, SELFPAY ==
--- NOTE | 2023-10-28 10:20 | MHC.OFFVIS ---
Intake Visit Reasons: O/V left basal jt pain Intake Note: Wendie 72 yr old female presents today for a follow up visit for her left basal joint pain. Patient was evaluated with Dr. Andrade on 07/05/20 where she was given a brace and Rx'd O.T. Pt states she never went through with O.T. Dr. Jimenez performed cmc arthroplasty many years ago. Patient was instructed if pain persist, she may come back for a injection. Currently states her pain has increased. She states she has been taking tylenol for her pain with little relief. Pt states she really isn't interested in an injection. Allergies No Known Allergies Allergy (Verified 10/28/23 10:34) HPI HPI O/V left basal jt pain : Details: Wendie is a 72 year old right hand dominant woman who returns with complaints of left basal joint pain. She is S/P left basal joint arthroplasty using a tight rope with Dr. Jimenez on 03/24/19. Tight rope removed by Dr. Jimenez on 02/16/20. She was last seen by me on 07/05/2020. At that time her pain was somewhat nonfocal. I did talk to her about a basal joint injection but she declined. I also referred her for some OT hand therapy, but it does not appear that she attended. She was given a new thumb spica splint on 10/03/[address] Jimenez. She is managing her pain with Tylenol. She says she is going on vacation on 11/04/23 for 2 weeks, and is not back until the beginning of November. [facility] Medical History (Updated 10/28/23 @ 11:13 by Sylwia Andrade MD) Left hand pain Hospital discharge follow-up Acute diverticulitis Hypertension Syncope and collapse Right knee pain Tendonitis Arthritis Surgical History Status post hardware removal Hx of colonoscopy History of hand surgery Family History Mother Alzheimer disease Hypertension Dementia Father Hypertension Social History Household Members: Spouse Housing: Apartment Do you presently have visiting nurse or other home services: Yes Alcohol intake: never Comment: pt refused bed alarm Patient Tobacco Use Status: Never used Tobacco e-Cigarette/Vaping Use: Never Used service: No Current occupational status: retired Current occupation: rt handed Review of Systems Const All systems reviewed & are unremarkable except as noted in HPI and below Physical Exam Const General: cooperative, healthy appearing and no acute distress Orientation/consciousness: patient oriented x3 HEENT Head: Yes normocephalic and Yes atraumatic Eyes EOM: EOMs intact bilaterally Resp Effort & Inspection: normal respiratory effort and able to speak in complete sentences Cardio Jugular venous distension: no JVD Skin General skin exam: turgor normal Rashes: no rashes Neuro General: patient oriented x3 Extrem Other: Evaluation of Left Upper Extremity: The patient is alert, oriented, and in no acute distress She demonstrates that most of her pain is around the basal joint of the thumb. She is most tender to palpation about the basal joint of the thumb. The thumb is somewhat shortened as she is status post a trapezii ectomy. She can oppose the thumb to all of her digits. No tenderness about the MCP joint or A1 sofia. No tenderness about the 1st dorsal compartment today. She can make a fist with her fingers and extend all of her digits. No locking and catching of the fingers or the thumb. Sensation reportedly normal to the tips of all digits. Cap refill brisk Radiographs: 3 views of the left hand were taken and viewed by me today in clinic. They show no fractures or dislocations. She is status post a basal joint arthroplasty with trapezii ectomy. She does have some subsidence of the base of the 1st metacarpal to the scaphoid. Psych Appearance: grossly normal Affect: normal affect Attitude: cooperative Assessment & Plan Assessment & Plan (1) CMC arthritis, thumb, degenerative: Code(s): M18.9 - Osteoarthritis of first carpometacarpal joint, unspecified Category: Medical (2) Left hand pain: Code(s): M79.642 - Pain in left hand Category: Medical Plan Assessment & Plan: 1. Left basal joint osteoarthritis, S/P arthroplasty with trapeziectomy DOS: 03/24/[address] Jimenez Tight rope was removed on 02/16/20, by Dr. Jimenez She still has some pain with activities in the area of the basal joint interspace. I educated her about this condition I discussed treatment options I offered her a basal joint steroid injection but she was not interested in that today. I again recommend OT hand therapy & activity modification. She says that she is interested in attending hand therapy this time. I discussed activity modification, they should limit or avoid any heavy or repetitive pinching or gripping activities She was previously given a splint by Dr. Jimenez on 10/03/23, but says this was lost when visiting her son in [facility], and she is requesting a new one She was fitted for a comfort cool brace to wear with daily activity. I ordered OT hand therapy to work on ROM, strengthening, and normalizing function She will follow up as needed Scribed for Sylwia Andrade MD by Alex Au, medical superintendent, on 10/28/23 at 11:05 AM, EST. Orders: Orders XR hand LT min 3V Today M79.642 - Pain in left hand Coding Level of Care Code Est Pt Level 4 (29233) Diagnoses CMC arthritis, thumb, degenerative M18.9 Left hand pain M79.642
== END 2023-10-28 11:19 | disposition home or self-care (01) ==
PROVIDERS: PCP Internal Medicine Geriatric Medicine; Visit Provider Orthopaedic Surgery
DX: M18.9 Osteoarthritis of first carpometacarpal joint, unspecified (principal); M79.642 Pain in left hand
CPT/HCPCS: 99213

== ENCOUNTER 2023-10-28 11:58 | Emergency (ER) | payer OTHER, SELFPAY ==
--- NOTE | ~2023-10-28 | CT_ITS ---
EXAMINATION: CT ABDOMEN AND PELVIS WITH CONTRAST CLINICAL INFORMATION: Abdominal pain. COMPARISON: 03/21/2023 TECHNIQUE: Multidetector volumetric images were obtained from the superior aspect of the liver through the pubic symphysis following administration 85 mL of Omnipaque 350 intravenous contrast. Sagittal and coronal reformatted images were obtained on the technologist's workstation. Oral contrast: No This CT examination was performed using dose optimization techniques as appropriate, variously including the following: *Automated exposure control *Adjustment of mA and/or kV according to patient size (this includes techniques or standardized protocols for targeted exams where dose is matched to indication/reason for exam; i.e. extremities or head) *Use of iterative reconstruction technique DLP: 462 mGy-cm FINDINGS: LUNG BASES: The visualized lung bases are unremarkable. LIVER, GALLBLADDER, AND BILIARY TREE: There is a 1.5 cm cyst right lobe of the liver. There is no intrahepatic biliary duct dilatation. The gallbladder is unremarkable with no evidence of radiopaque gallstones, gallbladder wall thickening, or obvious pericholecystic inflammatory changes. PANCREAS: Unremarkable. SPLEEN: Unremarkable. ADRENAL GLANDS: Unremarkable. KIDNEYS AND URETERS: The kidneys are normal in size, shape, and attenuation. No hydronephrosis, hydroureter, or calculi seen. No perinephric stranding. There is a subcentimeter cyst upper pole left kidney. BLADDER: Unremarkable. GASTROINTESTINAL TRACT: There is diffuse diverticulosis most pronounced in the descending and the sigmoid colon with proximal sigmoid colonic thickening and mild surrounding infiltration. The appendix is visualized and is within normal limits. ABDOMINAL WALL: No significant hernia is appreciated. LYMPH NODES: Normal. VASCULAR: There is mild atherosclerotic plaque of the abdominal aorta and proximal branches PELVIC VISCERA: Unremarkable. OSSEOUS STRUCTURES: There is mild diffuse thoracolumbar disc degenerative change. CT/CT abdomen pelvis w IV con IMPRESSION: Diverticulosis with mild diverticulitis of the proximal sigmoid colon. No evidence of abscess or obstruction. Fleischner guidelines were followed.
[2023-10-28 12:24] VITALS: BP 151/69; PULSE 89; RESP 18; TEMP 36.6; O2SAT 98; BMI 30.5
[2023-10-28 12:39] LABS: MANUAL DIFF FLAG NO
--- NOTE | 2023-10-28 12:41 | ED_ITS ---
HPI - Abdominal Pain General Chief Complaint: Abdominal Pain Stated Complaint: leg pain Time Seen by Provider: 10/29/23 00:07 Source: patient Mode of arrival: ambulatory Limitations: no limitations History of Present Illness ED Provider: bonnie MEULLER narrative: Patient with history of diverticulitis last year comes here for 4 days of left lower abdominal with nausea poor oral intake no fever no chills no blood in his stool patient had labs done prior to my evaluation which were normal Related Data Home Medications ?Medication ?Instructions ?Recorded ?Confirmed garlic 1 cap PO DAILY 03/21/23 09/09/23 amlodipine 10 mg tablet 10 mg PO DAILY 10/03/23 Previous Rx's ?Medication ?Instructions ?Recorded losartan 25 mg tablet 25 mg PO DAILY #90 tabs 09/09/23 pantoprazole 20 mg tablet,delayed 20 mg PO QAM #90 tabs 10/17/23 release amoxicillin 875 mg-potassium 1 tab PO BID #20 tabs 10/29/23 clavulanate 125 mg tablet ibuprofen 600 mg tablet 600 mg PO Q6H PRN fever or pain 10/29/23 #30 tabs Allergies Allergy/AdvReac Type Severity Reaction Status Date / Time No Known Allergies Allergy Verified 10/28/23 12:25 Review of Systems Review of Systems Yes all other systems are reviewed and are negative PMFSH Past Medical History Medical History Left hand pain Hospital discharge follow-up Acute diverticulitis Hypertension Syncope and collapse Right knee pain Tendonitis Arthritis Surgical History Status post hardware removal Hx of colonoscopy History of hand surgery Family History Family History Mother Alzheimer disease Hypertension Dementia Father Hypertension Social History Social History Household Members: Spouse Housing: Apartment Do you presently have visiting nurse or other home services: Yes Alcohol intake: never Comment: pt refused bed alarm Patient Tobacco Use Status: Never used Tobacco Smoked in Last 30 Days: No e-Cigarette/Vaping Use: Never Used Use of substances other than those prescribed or required for medical reasons: No Advance Directives: No Advance Directives Information Provided: No Do you have a plan to hurt others: No Plan service: No Current occupational status: retired Current occupation: rt handed Physical Exam ED Vital Signs: Vital Signs - 24 hr 10/28/23 12:24 10/28/23 22:27 10/29/23 00:48 Temperature 97.8 F 97.9 F 98.1 F Pulse Rate 89 76 75 Respiratory Rate 18 16 14 Blood Pressure 151/69 H 155/89 H 146/98 H Pulse Oximetry 98 97 98 Oxygen Delivery Method Room Air Room Air Room Air BMI result Body Mass Index 30.5 Appearance: Alert. Oriented X3. No acute distress. Eyes: No pallor or icterus ENT: Pharynx normal. Oral Mucosa moist Neck: Normal inspection. Neck supple. CVS: Normal heart rate and rhythm. Pulses normal. Respiratory: No respiratory distress. Equal air entry bilateral, no wheezing/rales/rhonchi Abdomen: Soft , deep tenderness left lower quadrant with guarding no rebound tenderness Bowel sounds are present, no mass palpable, no CVA tenderness Skin: Skin warm and dry. Normal skin color. Normal skin turgor. Extremities: No lower extremity edema. No calf tenderness Neuro: Oriented X 3. Course Course Course Narrative: This is a Rapid Medical Examination (RME) performed by Leticia Rashid PA-C in triage. Full HPI, ROS, assessment and treatment plan per primary provider in the Main ED. 72-year-old jordanian speaking female with hx of GERD, hiatal hernia, diverticulosis/ diverticulitis, hypertension, osteoarthritis here for eval of epigastric abdominal cramping x4 days. no OTC meds at home. Denies vomiting, diarrhea, constipation, melena, bright red blood per rectum, hematochezia. Plan: labs, UA +/- imaging per primary provider Medical Decision Making Medical Decision Making MDM Narrative: Patient with left lower quadrant pain CT scan showed diverticulosis with slight inflammation final report is pending will prescribe Augmentin Lab Data [facility] Lab Attestation statement: I reviewed the patient's lab results. 10/28/23 12:36 10/28/23 12:36 Labs: Lab Results 10/28/23 10/28/23 Range/Units 12:36 22:59 WBC 9.1 (4.8-10.8) X10*3/uL RBC 4.18 L (4.20-5.50) X10*6/uL Hgb 11.9 L (12.0-16.0) g/dl Hct 35.6 L (37.0-47.0) % MCV 85.2 (80.0-98.0) fL MCH 28.5 (27.0-33.0) pg MCHC 33.4 (31.0-35.0) g/dl RDW 13.4 (11.0-16.0) % Plt Count 303 (160-400) X10*3/uL MPV 8.5 L (9.4-12.3) fL Immature Gran % (Auto) 0.3 (0.0-0.4) % Neut % (Auto) 65.3 (45-73) % Lymph % (Auto) 24.6 (20-40) % [place] % (Auto) 7.9 (2-11) % Eos % (Auto) 1.6 (0-4) % Baso % (Auto) 0.3 (0-2) % Lymph # (Auto) 2.2 (1.2-4.9) X10*3/uL [place] # (Auto) 0.7 (0.1-1.2) X10*3/uL Eos # (Auto) 0.2 (0.0-0.4) X10*3/uL Baso # (Auto) 0.0 (0.0-0.2) X10*3/uL Abs Immat Gran (auto) 0.03 (0.00-0.03) X10*3/uL Absolute Neuts (auto) 5.9 (2.0-8.3) x10*3/uL Absolute Nucleated RBC 0.000 (0.0-0.012) X10*3/uL Nucleated RBC % (auto) 0.0 (0.0-0.2) /100WBC Sodium 139 (135-145) mmol/L Potassium 4.4 (3.3-5.1) mmol/L Chloride 104 (96-108) mmol/L Carbon Dioxide 28 (22-29) mmol/L Anion Gap 11 L (12-20) BUN 12 (9-16) mg/dL Creatinine 0.78 (0.5-1.4) mg/dL Estim Creat Clear Calc 56.5 Estimated GFR > 60 Random Glucose 121 H (60-115) mg/dL Calcium 9.7 (8.4-10.2) mg/dL Total Bilirubin 0.5 (0.0-1.0) mg/dL AST 12 (5-31) U/L ALT 13 (0-31) U/L Alkaline Phosphatase 80 (39-117) U/L Total Protein 8.1 H (6.5-8.0) g/dL Albumin 4.2 (3.5-5.0) g/dL Lipase 34 (8-78) U/L Urine Color Yellow Urine Appearance Clear Urine pH 6.0 (5.0-9.0) Ur Specific [place] 1.020 (1.005-1.025) Urine Protein Negative (Neg-Trace) mg/dL Urine Glucose (UA) Negative (Negative) mg/dL Urine Ketones Negative (Negative) mg/dL Urine Blood Negative (Negative) Urine Nitrite Negative (Negative) Ur Leukocyte Esterase Trace H (Negative) Urine RBC 0-2 (0-2) /HPF Urine WBC 0-5 (0-5) /HPF Ur Squamous Epith Cells 0-2 (0-2) /HPF Urine Bacteria None Seen (None Seen) Hyaline Casts 0-2 (0-2) /LPF Independent Interpretation I performed an independent interpretation of an: CT Scan Radiology Impression Discussion of test interpretation with radiology: I have reviewed the radiologist's reading. Radiologist Impression: FINDINGS: LUNG BASES: The visualized lung bases are unremarkable. LIVER, GALLBLADDER, AND BILIARY TREE: There is a 1.5 cm cyst right lobe of the liver. There is no intrahepatic biliary duct dilatation. The gallbladder is unremarkable with no evidence of radiopaque gallstones, gallbladder wall thickening, or obvious pericholecystic inflammatory changes. PANCREAS: Unremarkable. SPLEEN: Unremarkable. ADRENAL GLANDS: Unremarkable. KIDNEYS AND URETERS: The kidneys are normal in size, shape, and attenuation. No hydronephrosis, hydroureter, or calculi seen. No perinephric stranding. There is a subcentimeter cyst upper pole left kidney. BLADDER: Unremarkable. GASTROINTESTINAL TRACT: There is diffuse diverticulosis most pronounced in the descending and the sigmoid colon with proximal sigmoid colonic thickening and mild surrounding infiltration. The appendix is visualized and is within normal limits. ABDOMINAL WALL: No significant hernia is appreciated. LYMPH NODES: Normal. VASCULAR: There is mild atherosclerotic plaque of the abdominal aorta and proximal branches PELVIC VISCERA: Unremarkable. OSSEOUS STRUCTURES: There is mild diffuse thoracolumbar disc degenerative change. CT/CT abdomen pelvis w IV con IMPRESSION: Diverticulosis with mild diverticulitis of the proximal sigmoid colon. No evidence of abscess or obstruction. Fleischner guidelines were followed. Medications Administered Discontinued Medications Generic Name Dose Route Start Last Admin Trade Name Freq PRN Reason Stop Dose Admin Acetaminophen 650 mg 10/29/23 01:25 10/29/23 01:36 Acetaminophen 325 Mg Tablet PO 10/29/23 01:26 650 mg ONCE ONE Administration Sodium Chloride 1,000 mls @ 999 mls/hr 10/29/23 00:44 10/29/23 02:23 Ns IV 10/29/23 01:44 Infused .Q1H1M ONE Infusion Iohexol 85 ml 10/29/23 01:20 10/29/23 01:21 Iohexol 350 Mg/Ml 100 Ml Infus..Btl IV 10/29/23 01:21 85 ml ONCE ONE Administration Ketorolac Tromethamine 30 mg 10/29/23 01:00 10/29/23 01:24 Ketorolac Tromethamine 30 Mg/Ml Vial IVPUSH 10/29/23 01:01 Not Given ONCE ONE Ondansetron HCl 4 mg 10/29/23 00:44 10/29/23 01:24 Ondansetron Hcl 4 Mg/2 Ml Vial IVPUSH 10/29/23 00:45 Not Given ONCE ONE Discharge Plan Discharge Clinical Impression: Diverticulitis Patient Disposition: Home, Self-Care Instructions: Diverticulitis (ED), Diverticulitis Diet (ED) Additional Instructions: Take antibiotic as prescribed Report to the ER if worsening of the pain/fever/blood in stool Clear liquids advance as tolerated Prescriptions: New amoxicillin-pot clavulanate 875-125 mg tablet 1 tab PO BID Qty: 20 0RF ibuprofen 600 mg tablet 600 mg PO Q6H PRN (Reason: fever or pain) Qty: 30 0RF No Action pantoprazole 20 mg tablet,delayed release (DR/EC) 20 mg PO QAM Qty: 90 2RF garlic Capsule 1 cap PO DAILY losartan 25 mg tablet 25 mg PO DAILY Qty: 90 3RF amlodipine 10 mg tablet 10 mg PO DAILY Print Language: [place]
[2023-10-28 12:43] LABS: Basophils Percent Auto 0.3 % (0-2); Eosinophils Absolute Auto 0.2 X10*3/uL (0.0-0.4); Eosinophils Percent Auto 1.6 % (0-4); Hematocrit 35.6 % (37.0-47.0); Hemoglobin 11.9 g/dl (12.0-16.0); Imm Gran Abs Auto 0.03 X10*3/uL (0.00-0.03); Imm Gran Pct Auto 0.3 % (0.0-0.4); Lymphocytes Absolute Auto 2.2 X10*3/uL (1.2-4.9); Lymphocytes Percent Auto 24.6 % (20-40); Mean Corpuscular HGB Conc 33.4 g/dl (31.0-35.0); Mean Corpuscular Hemoglobin 28.5 pg (27.0-33.0); Mean Corpuscular Volume 85.2 fL (80.0-98.0); Mean Platelet Volume 8.5 fL (9.4-12.3); Monocytes Absolute Auto 0.7 X10*3/uL (0.1-1.2); Monocytes Percent Auto 7.9 % (2-11); Neutrophils Absolute Auto 5.9 x10*3/uL (2.0-8.3); Neutrophils Percent Auto 65.3 % (45-73); Platelet Count 303 X10*3/uL (160-400); Red Blood Count 4.18 X10*6/uL (4.20-5.50); Red Cell Distribution Width 13.4 % (11.0-16.0); White Blood Count 9.1 X10*3/uL (4.8-10.8)
[2023-10-28 13:01] LABS: Alanine Aminotransferase 13 U/L (0-31); Albumin Level 4.2 g/dL (3.5-5.0); Alkaline Phosphatase 80 U/L (39-117); Anion Gap 11 (12-20); Aspartate Amino Transferase 12 U/L (5-31); Bilirubin Total 0.5 mg/dL (0.0-1.0); Blood Urea Nitrogen 12 mg/dL (9-16); Calcium 9.7 mg/dL (8.4-10.2); Carbon Dioxide 28 mmol/L (22-29); Chloride 104 mmol/L (96-108); Creatinine Clr Calc Pharmacy 56.5; Estimated Glomerular Filt Rate > 60; Glucose Random 121 mg/dL (60-115); Potassium 4.4 mmol/L (3.3-5.1); Sodium 139 mmol/L (135-145); Total Protein 8.1 g/dL (6.5-8.0)
[2023-10-28 13:38] LABS: Lipase 34 U/L (8-78)
[2023-10-28 22:27] VITALS: BP 155/89; PULSE 76; RESP 16; TEMP 36.6; O2SAT 97
--- NOTE | 2023-10-28 23:00 | PC.NURSE ---
pt reporting bilateral swelling to feet since starting BP medication.
[2023-10-28 23:31] LABS: Appearance Urine Clear; Color Urine Yellow; Glucose Urine UA Negative (Negative); Leukocyte Esterase Urine Trace (Negative); Nitrite Urine Negative (Negative); UMIC TRIGGER UACC YES; Urine Blood Negative (Negative); Urine Ketones Negative (Negative); Urine Protein Negative (Neg-Trace)
[2023-10-28 23:37] LABS: Bacteria Urine None Seen (None Seen); Hyaline Casts Urine 0-2 /LPF (0-2); RBC Urine 0-2 /HPF (0-2); Squamous Epithelial Cell Urine 0-2 /HPF (0-2); WBC Urine 0-5 /HPF (0-5)
[2023-10-29 00:48] VITALS: BP 146/98; PULSE 75; RESP 14; TEMP 36.7; O2SAT 98
[2023-10-29] MEDS: 0.9 % Sodium Chloride 1,000 ML 999 ML IV (00:59)
[2023-10-29] MEDS: iohexoL 350 MG/ML 100 ML INFUS..BTL 85 ML IV (01:21)
[2023-10-29] MEDS: Acetaminophen 325 MG TABLET 650 MG PO (01:36)
[2023-10-29 03:04] VITALS: BP 136/84; PULSE 75; RESP 14; TEMP 36.7; O2SAT 97
[2023-10-29] MEDS: Amoxicillin/Potassium Clav 875 MG TABLET PO (03:07)
[2023-10-29 03:40] VITALS: BP 136/84; PULSE 75; RESP 14; TEMP 36.7; O2SAT 97
== END 2023-10-29 03:40 | disposition home or self-care (01) ==
PROVIDERS: Internal Medicine; Emergency Provider Emergency Medicine; PCP Internal Medicine Geriatric Medicine
DX: K57.32 Diverticulitis of large intestine without perforation or abscess without bleeding (principal); R10.32 Left lower quadrant pain; R11.0 Nausea; M79.642 Pain in left hand; Z79.899 Other long term (current) drug therapy
CPT/HCPCS: 36415; 73130; 74177; 80053; 81001; 83690; 85025; 96360; 99212; 99284; 99285; Q9967

== ENCOUNTER 2023-10-31 12:15 | Outpatient (AMB) | payer OTHER, SELFPAY ==
--- NOTE | 2023-10-31 12:25 | MHC.OFFVIS ---
Intake Visit Reasons: OV-left shoulder with RTC tear Intake Note: Wendie is a 72 year old right hand dominant female who presents today for a follow up of her left shoulder, at her last visit she declined injections. Patient reports that he pain has continued and she still is not interested in an injection. Allergies No Known Allergies Allergy (Verified 10/31/23 12:28) HPI HPI OV-left shoulder with RTC tear: Details: Left shoulder continues to bother her. MRI from July of this year shows severe glenohumeral arthritis. [facility] Medical History Left hand pain Hospital discharge follow-up Acute diverticulitis Hypertension Syncope and collapse Right knee pain Tendonitis Arthritis Surgical History Status post hardware removal Hx of colonoscopy History of hand surgery Family History Mother Alzheimer disease Hypertension Dementia Father Hypertension Social History Household Members: Spouse Housing: Apartment Do you presently have visiting nurse or other home services: Yes Alcohol intake: never Comment: pt refused bed alarm Patient Tobacco Use Status: Never used Tobacco e-Cigarette/Vaping Use: Never Used service: No Current occupational status: retired Current occupation: rt handed Physical Exam Extrem Other: SHe has 4+/5 EC and pain with ER> 20 deg 25/80/120/HP Results Reviewed Results Reviewed: I personally reviewed the MR images. IMPRESSION: 1. Yddalbsy-ys-qfvzjx osteoarthritis of the glenohumeral joint. 2. Vvbp-gt-kbuhgoal osteoarthritis of the acromioclavicular joint. 3. Irregular partial tear of the supraspinatus tendon. 4. Tendinosis and perhaps small areas of partial tearing of the infraspinatus 5. Suspect small intrasubstance partial tear at the insertion of the subscapularis. Assessment & Plan Assessment & Plan (1) Osteoarthritis of left shoulder: Code(s): M19.012 - Primary osteoarthritis, left shoulder Category: Medical Plan: Delmy is a 73-year-old woman with left shoulder osteoarthritis. She is signs and symptoms of both arthritis and rotator cuff pathology. She has not interested in injections and physical therapy has not been helpful. I recommend activity modification. If her pain persists we can discuss more aggressive treatments but she is pretty apprehensive at this point and satisfied just to treat this conservatively. Coding Level of Care Code Est Pt Level 4 (16259) Diagnoses Osteoarthritis of left shoulder M19.012
== END 2023-10-31 13:25 | disposition home or self-care (01) ==
PROVIDERS: PCP Internal Medicine Geriatric Medicine; Visit Provider Orthopaedic Surgery
DX: M19.012 Primary osteoarthritis, left shoulder (principal)
CPT/HCPCS: 99214

== ENCOUNTER → 2023-10-31 12:15 | Outpatient (BNVA) | payer OTHER, SELFPAY | PROVIDERS: PCP Internal Medicine Geriatric Medicine; Visit Provider Orthopaedic Surgery | DX: M19.012 Primary osteoarthritis, left shoulder (principal) | CPT/HCPCS: 99212 ==

== ENCOUNTER 2023-12-09 11:30 | Outpatient (RCR) | payer OTHER, SELFPAY ==
--- NOTE | 2023-11-24 13:59 | MHC.OT.EP ---
[address] [phone] Occupational Therapy Plan of Care Patient Name: Wendie Abdalla Date of Evaluation: 11/24/23 Diagnosis: OA, Basal joint OA ulnar negative variance Pain Location: Pt reported pain w/ wrist AROM (RD/UD) Pt reported pain w/ palpation of her CMC J Bouchards and hebedens nodes noted on d1-5 Pain Score: 7 Pain Scale Used: Numeric (0 - 10) Aggravating Factors: Motion, pressure Alleviating Factors: Pt reported Tylenol and heat help but do not alleviate sx's Assessment: Pt is a 73 yr. old R hand dominant female who is having pain along the radial side of her L wrist and thumb. Pt reports she has a significant hx of OA and had LRTI surgery (L thumb/wrist) over a yr. ago which helped w/ pain. She had an X-ray which indicated scaphoid and 1st MCP involvement (no interest in cortisone injections). 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 Thank you once again for your referral.
== END 2024-01-29 16:15 | disposition home or self-care (01) ==
LOC: HO.OT 11:30
PROVIDERS: PCP Internal Medicine Geriatric Medicine; Visit Provider Orthopaedic Surgery
DX: M18.9 Osteoarthritis of first carpometacarpal joint, unspecified (principal); M79.642 Pain in left hand
CPT/HCPCS: 29130; 97035; 97140; 97166; 97535

== ENCOUNTER 2024-01-26 11:12 | Outpatient (REF) | payer OTHER, SELFPAY ==
[2024-01-26 14:14] LABS: Microalbum/Creatinine Ratio Ur 6.6 ug/mg cr (<30)
== END 2024-01-26 11:13 | disposition home or self-care (01) ==
LOC: HO.HHCL 11:12
PROVIDERS: Visit Provider Internal Medicine Geriatric Medicine
DX: M25.473 Effusion, unspecified ankle (principal)
CPT/HCPCS: 82043; 82570

== ENCOUNTER 2024-02-23 09:58 | Outpatient (AMB) | payer OTHER, SELFPAY ==
[2024-02-23 10:24] VITALS: BP 114/66; PULSE 83; BMI 30.2
--- NOTE | 2024-02-23 10:24 | A.OFFVIS_ITS ---
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 In the past, seen regarding syncopal episodes, thought to be possibly orthostatic. However, nothing recently. No known cardiovascular issues. Echocardiogram had shown mild ascending aortic dilatation the past but otherwise unremarkable. She has had high as well as normal blood pressures at different times. Amlodipine led to worsening leg swelling. Currently, on losartan and doing fine in that regard. Main concern is rather abdominal pain and she wants to go to the ER today for that reason. [facility] Medical History Left hand pain Hospital discharge follow-up Acute diverticulitis Hypertension Syncope and collapse Right knee pain Tendonitis Arthritis Surgical History Status post hardware removal Hx of colonoscopy History of hand surgery Family History Mother Alzheimer disease Hypertension Dementia Father Hypertension Social History Household Members: Spouse Housing: Apartment Do you presently have visiting nurse or other home services: Yes Alcohol intake: never Comment: pt refused bed alarm Patient Tobacco Use Status: Never used Tobacco e-Cigarette/Vaping Use: Never Used service: No Current occupational status: retired Current occupation: rt handed Review of Systems Const Denies chills, Denies fatigue, Denies fever(s), Denies weight gain and Denies weight loss ENT Denies dizziness Card Denies chest pain, Reports leg edema, Denies lightheadedness, Denies palpitations, Denies dyspnea on exertion, Denies orthopnea and Denies other Resp Denies cough and Denies dyspnea on exertion GI Denies hematochezia and Denies change in stool character Musc Denies abnormal gait, Denies muscle weakness, Denies numbness, Denies radiating pain into limb and Denies tingling Neuro Denies abnormal gait, Denies dizziness, Denies numbness and Denies tingling Endo Denies fatigue and Denies palpitations Physical Exam Vital Signs: Last Vital Signs Pulse 83 02/23/24 10:24 BP 114/66 02/23/24 10:24 BMI result Body Mass Index 30.2 Const General: comfortable and no acute distress Orientation/consciousness: patient oriented x3 HEENT Other: Unremarkable Head: Yes normal to inspection Neck Neck: Yes normal visual inspection Chest Chest palpation & inspection: normal inspection of the chest Resp Auscultation: clear to auscultation bilaterally Cardio Palpation: normal PMI Heart sounds: S1 normal heart sound present, S2 normal heart sound present, no gallops, no murmurs and no rubs GI Palpation (GI): Soft to palpation Back/Spine/Pelvis Other: unremarkable Skin General skin exam: no rashes or lesions noted Neuro General: patient oriented x3 Extrem General: Yes normal to inspection Psych Mental Status: mental status grossly normal Assessment & Plan Assessment & Plan (1) Hypertension: Code(s): I10 - Essential (primary) hypertension Category: Medical Qualifiers: Hypertension type: primary hypertension Qualified Code(s): I10 - Essential (primary) hypertension Plan: Stable on Losartan. Continue. In the past, leg swelling from Amlodipine. (2) Ascending aorta dilatation: Code(s): I77.810 - Thoracic aortic ectasia Category: Medical Plan: Mild dilatation about 4 cm. Could be related to hypertension. Recheck echocardiogram. Orders: Orders CA echo transthoracic complete Today I77.810 - Thoracic aortic ectasia Coding Level of Care Code Est Pt Level 3 (93431) Diagnoses Primary hypertension I10 Hypertension type: primary hypertension Ascending aorta dilatation I77.810
== END 2024-02-23 11:15 | disposition home or self-care (01) ==
PROVIDERS: PCP Internal Medicine Geriatric Medicine; Visit Provider Internal Medicine
DX: I10 Essential (primary) hypertension (principal); I77.810 Thoracic aortic ectasia
CPT/HCPCS: 99213

== ENCOUNTER → 2024-02-23 09:58 | Outpatient (BNVA) | payer OTHER, SELFPAY | PROVIDERS: PCP Internal Medicine Geriatric Medicine; Visit Provider Internal Medicine ==

== ENCOUNTER 2024-02-23 10:45 | Emergency (ER) | payer OTHER, SELFPAY ==
--- NOTE | ~2024-02-23 | CT_ITS ---
EXAMINATION: CT ABDOMEN AND PELVIS WITHOUT CONTRAST CLINICAL INFORMATION: Left lower quadrant abdominal pain. Diverticulitis. COMPARISON: Multiple priors, most recent CT abdomen/pelvis dated 10/29/2023. TECHNIQUE: Multidetector volumetric imaging was performed from the superior aspect of the liver through the pubic symphysis. Sagittal and coronal reformatted images were obtained on the technologist's workstation. This CT examination was performed using dose optimization techniques as appropriate, variously including the following: *Automated exposure control *Adjustment of mA and/or kV according to patient size (this includes techniques or standardized protocols for targeted exams where dose is matched to indication/reason for exam; i.e. extremities or head) *Use of iterative reconstruction technique DLP: 424 mGy-cm FINDINGS: LUNG BASES: The visualized lung bases are unremarkable. LIVER, GALLBLADDER, AND BILIARY TREE: The liver is normal in size, shape, and attenuation. Inferior right hepatic lobe simple-appearing cysts, unchanged. No new focal hepatic lesion or biliary ductal dilatation is present. The gallbladder is unremarkable with no evidence of radiopaque gallstones, gallbladder wall thickening, or obvious pericholecystic inflammatory changes. PANCREAS: Unremarkable. SPLEEN: Unremarkable. ADRENAL GLANDS: Unremarkable. KIDNEYS AND URETERS: The kidneys are normal in size, shape, and attenuation. No hydronephrosis, hydroureter, or calculi seen. No perinephric stranding. BLADDER: Nondistended. GASTROINTESTINAL TRACT: Sigmoid diverticulosis with circumferential rectosigmoid junction bowel wall thickening and prominent adjacent stranding, increased when compared to the prior CT and consistent with acute diverticulitis. No extraluminal air or organized fluid collection to suggest perforation or abscess formation. No small or large bowel obstruction. Unremarkable appendix. No additional bowel wall thickening or inflammatory change. PERITONEAL CAVITY: No intra-abdominal free air or free fluid. No soft tissue mass or organized fluid collection/abscess formation. ABDOMINAL WALL: No significant hernia is appreciated. LYMPH NODES: No lymphadenopathy. VASCULAR: Atherosclerotic calcifications. No abdominal aortic dilatation. PELVIC VISCERA: The uterus is surgically absent. OSSEOUS STRUCTURES: Unremarkable. CT/CT abdomen pelvis wo IV con IMPRESSION: 1. Acute sigmoid diverticulitis, increased when compared to the prior CT. No evidence of perforation or abscess formation. 2. Additional chronic findings are unchanged. Fleischner guidelines were followed. Electronically signed by: Jimenez Montoya MD 02/23/2024 01:36 PM EDT RP
[2024-02-23 11:26] VITALS: BP 129/85; PULSE 83; RESP 18; TEMP 36.9; O2SAT 99; BMI 30.3
[2024-02-23 11:26] LABS: MANUAL DIFF FLAG NO
--- NOTE | 2024-02-23 11:26 | ED.ABDPAIN ---
HPI - Abdominal Pain General Chief Complaint: Abdominal Pain Stated Complaint: abd pain Related Data Previous Rx's ?Medication ?Instructions ?Recorded losartan 25 mg tablet 25 mg PO DAILY #90 tabs 09/09/23 Allergies Allergy/AdvReac Type Severity Reaction Status Date / Time No Known Allergies Allergy Verified 02/23/24 11:28 [facility] Past Medical History Medical History Left hand pain Hospital discharge follow-up Acute diverticulitis Hypertension Syncope and collapse Right knee pain Tendonitis Arthritis Surgical History Status post hardware removal Hx of colonoscopy History of hand surgery Family History Family History Mother Alzheimer disease Hypertension Dementia Father Hypertension Social History Social History Household Members: Spouse Housing: Apartment Do you presently have visiting nurse or other home services: Yes Alcohol intake: never Comment: pt refused bed alarm Patient Tobacco Use Status: Never used Tobacco e-Cigarette/Vaping Use: Never Used service: No Current occupational status: retired Current occupation: rt handed Physical Exam ED Vital Signs: BMI result Body Mass Index 30.3 Course Course Course Narrative: This is a Rapid Medical Examination (RME) performed by Ana Mcclelland PA-C in triage. Full HPI, ROS, assessment and treatment plan per primary provider in the Main ED. 73 yo Fijian speaking female with hx diverticulitis presenting to the ER for evaluation of diarrhea x2 day last week and abdominal pain x1 week. last BM 3 days ago. reports the pain is diffuse in her abdomen, nausea but no vomiting or fever. pain is 10/10. abd is soft with diffuse tenderness of the lower abdomen, L>R. no rigidity. Plan: labs and CT scan. Reevaluation(s) Reevaluation #1: patient eloped prior to completing treatment. Medical Decision Making Lab Data 02/23/24 11:21 02/23/24 11:21 Labs: Lab Results 02/23/24 Range/Units 11:21 WBC 8.9 (4.8-10.8) X10*3/uL RBC 4.02 L (4.20-5.50) X10*6/uL Hgb 11.6 L (12.0-16.0) g/dl Hct 34.2 L (37.0-47.0) % MCV 85.1 (80.0-98.0) fL MCH 28.9 (27.0-33.0) pg MCHC 33.9 (31.0-35.0) g/dl RDW 13.2 (11.0-16.0) % Plt Count 354 (160-400) X10*3/uL MPV 8.4 L (9.4-12.3) fL Immature Gran % (Auto) 0.3 (0.0-0.4) % Neut % (Auto) 69.7 (45-73) % Lymph % (Auto) 21.0 (20-40) % [place] % (Auto) 7.1 (2-11) % Eos % (Auto) 1.4 (0-4) % Baso % (Auto) 0.5 (0-2) % Lymph # (Auto) 1.9 (1.2-4.9) X10*3/uL [place] # (Auto) 0.6 (0.1-1.2) X10*3/uL Eos # (Auto) 0.1 (0.0-0.4) X10*3/uL Baso # (Auto) 0.0 (0.0-0.2) X10*3/uL Abs Immat Gran (auto) 0.03 (0.00-0.03) X10*3/uL Absolute Neuts (auto) 6.2 (2.0-8.3) x10*3/uL Absolute Nucleated RBC 0.000 (0.0-0.012) X10*3/uL Nucleated RBC % (auto) 0.0 (0.0-0.2) /100WBC Sodium 139 (135-145) mmol/L Potassium 4.2 (3.3-5.1) mmol/L Chloride 105 (96-108) mmol/L Carbon Dioxide 26 (22-29) mmol/L Anion Gap 12 (12-20) BUN 10 (9-16) mg/dL Creatinine 0.98 (0.5-1.4) mg/dL Estim Creat Clear Calc 44.1 Estimated GFR 56 Random Glucose 138 H (60-115) mg/dL Calcium 9.9 (8.4-10.2) mg/dL Magnesium 2.3 (1.6-2.6) mg/dL Total Bilirubin 0.4 (0.0-1.0) mg/dL Direct Bilirubin 0.1 (0.0-0.5) mg/dL AST 10 (5-31) U/L ALT 12 (0-31) U/L Alkaline Phosphatase 74 (39-117) U/L Total Protein 8.1 H (6.5-8.0) g/dL Albumin 4.2 (3.5-5.0) g/dL Lipase 34 (8-78) U/L Discharge Plan Discharge Clinical Impression: Abdominal pain Patient Disposition: Left W/O Completing Treatment Prescriptions: No Action losartan 25 mg tablet 25 mg PO DAILY Qty: 90 3RF Discharge Date/Time: 02/23/24 18:02
[2024-02-23 11:28] LABS: Basophils Percent Auto 0.5 % (0-2); Eosinophils Absolute Auto 0.1 X10*3/uL (0.0-0.4); Eosinophils Percent Auto 1.4 % (0-4); Hematocrit 34.2 % (37.0-47.0); Hemoglobin 11.6 g/dl (12.0-16.0); Imm Gran Abs Auto 0.03 X10*3/uL (0.00-0.03); Imm Gran Pct Auto 0.3 % (0.0-0.4); Lymphocytes Absolute Auto 1.9 X10*3/uL (1.2-4.9); Mean Corpuscular HGB Conc 33.9 g/dl (31.0-35.0); Mean Corpuscular Hemoglobin 28.9 pg (27.0-33.0); Mean Corpuscular Volume 85.1 fL (80.0-98.0); Mean Platelet Volume 8.4 fL (9.4-12.3); Monocytes Absolute Auto 0.6 X10*3/uL (0.1-1.2); Monocytes Percent Auto 7.1 % (2-11); Neutrophils Absolute Auto 6.2 x10*3/uL (2.0-8.3); Neutrophils Percent Auto 69.7 % (45-73); Platelet Count 354 X10*3/uL (160-400); Red Blood Count 4.02 X10*6/uL (4.20-5.50); Red Cell Distribution Width 13.2 % (11.0-16.0); White Blood Count 8.9 X10*3/uL (4.8-10.8)
[2024-02-23 11:43] LABS: Alanine Aminotransferase 12 U/L (0-31); Albumin Level 4.2 g/dL (3.5-5.0); Alkaline Phosphatase 74 U/L (39-117); Anion Gap 12 (12-20); Aspartate Amino Transferase 10 U/L (5-31); Bilirubin Direct 0.1 mg/dL (0.0-0.5); Bilirubin Total 0.4 mg/dL (0.0-1.0); Blood Urea Nitrogen 10 mg/dL (9-16); Calcium 9.9 mg/dL (8.4-10.2); Carbon Dioxide 26 mmol/L (22-29); Chloride 105 mmol/L (96-108); Creatinine Clr Calc Pharmacy 44.1; Estimated Glomerular Filt Rate 56; Glucose Random 138 mg/dL (60-115); Lipase 34 U/L (8-78); Magnesium 2.3 mg/dL (1.6-2.6); Potassium 4.2 mmol/L (3.3-5.1); Sodium 139 mmol/L (135-145); Total Protein 8.1 g/dL (6.5-8.0)
== END 2024-02-23 18:02 | disposition left against medical advice (07) ==
PROVIDERS: Physician Assistant; Emergency Provider Emergency Medicine; PCP Internal Medicine Geriatric Medicine
DX: R10.9 Unspecified abdominal pain (principal); I10 Essential (primary) hypertension; Z79.899 Other long term (current) drug therapy
CPT/HCPCS: 36415; 74176; 80048; 80076; 83690; 83735; 85025; 99212; 99281

== ENCOUNTER 2024-02-28 15:01 | Emergency (ER) | payer OTHER, SELFPAY ==
--- NOTE | ~2024-02-28 | CT_ITS ---
EXAMINATION: CT ABDOMEN AND PELVIS WITH CONTRAST CLINICAL INFORMATION: Worsening abdominal pain. COMPARISON: CT abdomen and pelvis 02/23/2024. TECHNIQUE: Multidetector volumetric images were obtained from the superior aspect of the liver through the pubic symphysis following administration 85 mL of Omnipaque 350 intravenous contrast. Sagittal and coronal reformatted images were obtained on the technologist's workstation. Oral contrast: No This CT examination was performed using dose optimization techniques as appropriate, variously including the following: *Automated exposure control *Adjustment of mA and/or kV according to patient size (this includes techniques or standardized protocols for targeted exams where dose is matched to indication/reason for exam; i.e. extremities or head) *Use of iterative reconstruction technique DLP: 445 mGy-cm FINDINGS: LUNG BASES: The visualized lung bases are unremarkable. Suspect small hiatal hernia. LIVER, GALLBLADDER, AND BILIARY TREE: The liver is normal in size, shape, and attenuation. There is a 6 mm hypodense nonenhancing lesion left hepatic lobe and a 1.5 cm nonenhancing lesion right hepatic lobe likely small cysts. No enhancing lesion or intrahepatic duct dilatation seen.. The gallbladder is unremarkable with no evidence of radiopaque gallstones, gallbladder wall thickening, or obvious pericholecystic inflammatory changes. PANCREAS: Unremarkable. SPLEEN: Unremarkable. ADRENAL GLANDS: Unremarkable. KIDNEYS AND URETERS: The kidneys are normal in size, shape, and attenuation. No hydronephrosis, hydroureter, or calculi seen. No perinephric stranding. There is a 7 mm nonenhancing hypodensity left kidney upper pole likely small cyst . BLADDER: Unremarkable. GASTROINTESTINAL TRACT: The stomach is nondistended. The small bowel loops are normal caliber. There is scattered stool, diverticuli and gas seen in colon without distention . There is diffuse mural thickening involving the sigmoid colon with pericolonic fat stranding in adjacent articular most likely diverticulitis. There is no pericolic abscess, free air or free fluid. No proximal colonic obstruction seen. ABDOMINAL WALL: No significant hernia is appreciated. LYMPH NODES: Normal. VASCULAR: Unremarkable. PELVIC VISCERA: Unremarkable. OSSEOUS STRUCTURES: No aggressive lytic or sclerotic process seen. CT/CT abdomen pelvis w IV con IMPRESSION: 1. Sigmoid diverticulitis without pericolic abscess, free air or free fluid. No change from 02/23/2024 CT exam 2. Colonic diverticulosis with moderate constipation. 3. Small hepatic and left renal cysts. Fleischner guidelines were followed. Electronically signed by: Tacho Weathers MD 02/28/2024 09:18 PM EDT RP
--- NOTE | 2024-02-28 15:05 | ED_ITS ---
HPI - Abdominal Pain General Chief Complaint: Abdominal Pain Stated Complaint: sore throat abd pain Time Seen by Provider: 02/28/24 19:15 History of Present Illness ED Provider: Demarcus MUELLER narrative: The patient is a 73-year-old female who has had lower abdominal pain for several days. She has also had a sore throat. She came to the emergency department 5 days ago because of the abdominal pain and had a CT scan of the abdomen and pelvis that showed acute sigmoid diverticulitis with no evidence of perforation or abscess. There was a very long wait in the emergency department that day and the patient left the department prior to getting the results of her scan. She therefore left without any antibiotics. The patient returns to the emergency room because of ongoing lower abdominal pain. She has had some loose stools. She has had some nausea but no definite vomiting. No definite fevers. She has also had a sore throat. Related Data Previous Rx's ?Medication ?Instructions ?Recorded losartan 25 mg tablet 25 mg PO DAILY #90 tabs 09/09/23 amoxicillin 875 mg-potassium 1 tab PO BID #20 tabs 02/28/24 clavulanate 125 mg tablet Allergies Allergy/AdvReac Type Severity Reaction Status Date / Time No Known Allergies Allergy Verified 02/28/24 15:08 Review of Systems Review of Systems Yes all other systems are reviewed and are negative PMFSH Past Medical History Medical History Left hand pain Hospital discharge follow-up Acute diverticulitis Hypertension Syncope and collapse Right knee pain Tendonitis Arthritis Surgical History Status post hardware removal Hx of colonoscopy History of hand surgery Family History Family History Mother Alzheimer disease Hypertension Dementia Father Hypertension Social History Social History Household Members: Spouse Housing: Apartment Do you presently have visiting nurse or other home services: Yes Alcohol intake: never Comment: pt refused bed alarm Patient Tobacco Use Status: Never used Tobacco e-Cigarette/Vaping Use: Never Used Advance Directives: No Advance Directives Information Provided: No service: No Current occupational status: retired Current occupation: rt handed Physical Exam ED Vital Signs: Vital Signs - 24 hr 02/28/24 15:06 02/28/24 18:34 02/28/24 21:56 Temperature 97.8 F 97.9 F 97.6 F Pulse Rate 104 H 83 75 Respiratory Rate 16 17 16 Blood Pressure 135/85 122/63 126/88 Pulse Oximetry 98 97 98 Oxygen Delivery Method Nasal Cannula Room Air Room Air 02/28/24 22:14 Temperature 97.6 F Pulse Rate 75 Respiratory Rate 16 Blood Pressure 126/88 Pulse Oximetry 98 Oxygen Delivery Method Room Air BMI result Body Mass Index 30.3 Const Other: the patient is awake, alert, pleasant, cooperative. She does not appear in overt distress. HENMT Other: The posterior pharynx is unremarkable. No definite erythema or exudate. No soft tissue swelling. No trismus. Mucous membranes moist. Face is symmetrical. Eyes General: appearance normal, both eyes and all related structures Neck Neck: Yes no lymphadenopathy Resp Effort & Inspection: normal respiratory effort Auscultation: clear to auscultation bilaterally Cardio Rate: regular rate Rhythm: regular rhythm Heart sounds: S1 normal heart sound present and S2 normal heart sound present GI Other: The patient seemed quite tender across the lower abdomen in both left and right lower quadrants. Skin Other: Skin is dry and unremarkable Neuro Other: the patient is awake and alert with normal mental status. Cranial nerves are grossly intact. She moves her extremities normally. She has a normal gait. Extrem Other: No peripheral edema. No calf swelling or tenderness or asymmetry. Course Course Course Narrative: This is a Rapid Medical Examination (RME) performed by Leticia Rashid PA-C in triage. Full HPI, ROS, assessment and treatment plan per primary provider in the Main ED. 73 yo [place] speaking female hx diverticulitis here for eval of nausea, diarrhea ( every 2 minutes ) and abdominal pain x2 weeks. reports the pain is diffuse in her abdomen. pain is 10/10. also reports sore throat x weeks. -- here on 02/23/24 for same, LWCT. +abd is soft with diffuse tenderness of the lower abdomen, L>R. no rigidity. Plan: labs, viral/ strep swabs, UA, will defer any imaging to primary provider Medical Decision Making Medical Decision Making MDM Narrative: The patient has had lower abdominal pain for over a week. She was seen here in the emergency department and had a CT scan that showed acute uncomplicated diverticulitis of the sigmoid colon. She has not been on any antibiotics since that time. Given her degree of tenderness tonight I thought that a repeat CT was warranted. Tonight CT is similar to the CT from 5 days ago. She still seems to have acute uncomplicated sigmoid diverticulitis. The patient looks well enough for a trial of outpatient management. She was started on Augmentin. She had been treated with acetaminophen. She did not want anything stronger for pain. She had also been given a L of IV normal saline. Lab Data 02/28/24 15:26 02/28/24 15:26 Labs: Lab Results 02/28/24 Range/Units 15:26 WBC 8.6 (4.8-10.8) X10*3/uL RBC 4.10 L (4.20-5.50) X10*6/uL Hgb 11.3 L (12.0-16.0) g/dl Hct 34.5 L (37.0-47.0) % MCV 84.1 (80.0-98.0) fL MCH 27.6 (27.0-33.0) pg MCHC 32.8 (31.0-35.0) g/dl RDW 13.1 (11.0-16.0) % Plt Count 439 H (160-400) X10*3/uL MPV 8.6 L (9.4-12.3) fL Immature Gran % (Auto) 0.3 (0.0-0.4) % Neut % (Auto) 62.0 (45-73) % Lymph % (Auto) 28.9 (20-40) % [place] % (Auto) 7.0 (2-11) % Eos % (Auto) 1.3 (0-4) % Baso % (Auto) 0.5 (0-2) % Lymph # (Auto) 2.5 (1.2-4.9) X10*3/uL [place] # (Auto) 0.6 (0.1-1.2) X10*3/uL Eos # (Auto) 0.1 (0.0-0.4) X10*3/uL Baso # (Auto) 0.0 (0.0-0.2) X10*3/uL Abs Immat Gran (auto) 0.03 (0.00-0.03) X10*3/uL Absolute Neuts (auto) 5.3 (2.0-8.3) x10*3/uL Absolute Nucleated RBC 0.000 (0.0-0.012) X10*3/uL Nucleated RBC % (auto) 0.0 (0.0-0.2) /100WBC Sodium 139 (135-145) mmol/L Potassium 4.1 (3.3-5.1) mmol/L Chloride 107 (96-108) mmol/L Carbon Dioxide 23 (22-29) mmol/L Anion Gap 13 (12-20) BUN 13 (9-16) mg/dL Creatinine 0.96 (0.5-1.4) mg/dL Estim Creat Clear Calc 45.1 Estimated GFR 57 Random Glucose 131 H (60-115) mg/dL Calcium 9.6 (8.4-10.2) mg/dL Magnesium 2.1 (1.6-2.6) mg/dL Total Bilirubin 0.2 (0.0-1.0) mg/dL AST 10 (5-31) U/L ALT 10 (0-31) U/L Alkaline Phosphatase 76 (39-117) U/L C-Reactive Protein 5.25 H (< or = 0.50) mg/dL Total Protein 7.9 (6.5-8.0) g/dL Albumin 4.1 (3.5-5.0) g/dL Lipase 46 (8-78) U/L Influenza Type A (PCR) NEGATIVE (Negative) Influenza Type B (PCR) NEGATIVE (Negative) RSV RNA Qual (PCR) NEGATIVE (Negative) SARS-CoV-2 RNA (RT-PCR) NEGATIVE (Negative) S. pyogenes GrpA ANASTASIIA Negative (Negative) Medications Administered Discontinued Medications Generic Name Dose Route Start Last Admin Trade Name Freq PRN Reason Stop Dose Admin Amoxicillin/Clavulanate Potassium 875 mg 02/28/24 21:37 02/28/24 21:57 Amoxicillin/Potassium Clav 875 Mg Tablet PO 02/28/24 21:38 875 mg ONCE ONE Administration Sodium Chloride 1,000 mls @ 999 mls/hr 02/28/24 20:30 02/28/24 20:43 Ns IV 02/28/24 21:30 999 mls/hr .Q1H1M JEANNETTE Administration Acetaminophen 1,000 mg in 100 mls @ 400 mls/hr 02/28/24 20:48 02/28/24 21:16 Ofirmev IV 02/28/24 21:02 400 mls/hr ONCE ONE Administration Iohexol 100 ml 02/28/24 20:58 02/28/24 21:00 Iohexol 350 Mg/Ml 100 Ml Infus..Btl IV 02/28/24 20:59 85 ml ONCE ONE Administration Morphine Sulfate 4 mg 02/28/24 20:16 02/28/24 20:43 Morphine Sulfate 4 Mg/Ml Cartridge IVPUSH 02/28/24 20:17 Not Given ONCE ONE Protocol Ondansetron HCl 4 mg 02/28/24 20:16 02/28/24 20:43 Ondansetron Hcl 4 Mg/2 Ml Vial IVPUSH 02/28/24 20:17 Not Given ONCE ONE Discharge Plan Discharge Clinical Impression: Diverticulitis Patient Disposition: Home, Self-Care Instructions: Diverticulitis (ED) Additional Instructions: Your CT scan shows that you have diverticulitis. Fortunately there are no complications of this diverticulitis. Please take the antibiotic amoxicillin/clavulanate (also known as Augmentin) 2 times a day. This would be approximately every 12 hours. 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 Drink a lot of fluids. You may use ibuprofen and acetaminophen as needed for discomfort. Please contact your regular doctor's office on Friday to make a follow up appointment for a recheck. If significantly worse return to the emergency department.. Prescriptions: New amoxicillin-pot clavulanate 875-125 mg tablet 1 tab PO BID Qty: 20 0RF No Action losartan 25 mg tablet 25 mg PO DAILY Qty: 90 3RF Referrals: Name,MD Martín [Primary Care Provider] - (diverticulitis) Interventions: ED Discharge Assessment Last Done: 02/28/24 22:14 Discharge Date/Time: 02/28/24 22:20 Print Language: Cape Verdean
[2024-02-28 15:06] VITALS: BP 135/85; PULSE 104; RESP 16; TEMP 36.6; O2SAT 98; BMI 30.3
[2024-02-28 15:31] LABS: MANUAL DIFF FLAG NO
[2024-02-28 15:37] LABS: Basophils Percent Auto 0.5 % (0-2); Eosinophils Absolute Auto 0.1 X10*3/uL (0.0-0.4); Eosinophils Percent Auto 1.3 % (0-4); Hematocrit 34.5 % (37.0-47.0); Hemoglobin 11.3 g/dl (12.0-16.0); Imm Gran Abs Auto 0.03 X10*3/uL (0.00-0.03); Imm Gran Pct Auto 0.3 % (0.0-0.4); Lymphocytes Absolute Auto 2.5 X10*3/uL (1.2-4.9); Lymphocytes Percent Auto 28.9 % (20-40); Mean Corpuscular HGB Conc 32.8 g/dl (31.0-35.0); Mean Corpuscular Hemoglobin 27.6 pg (27.0-33.0); Mean Corpuscular Volume 84.1 fL (80.0-98.0); Mean Platelet Volume 8.6 fL (9.4-12.3); Monocytes Absolute Auto 0.6 X10*3/uL (0.1-1.2); Neutrophils Absolute Auto 5.3 x10*3/uL (2.0-8.3); Platelet Count 439 X10*3/uL (160-400); Red Cell Distribution Width 13.1 % (11.0-16.0); White Blood Count 8.6 X10*3/uL (4.8-10.8)
[2024-02-28 15:41] LABS: IDNOW Serial# 08D9AD1C; Strep A Nucleic Acid Negative (Negative)
[2024-02-28 15:45] LABS: Alanine Aminotransferase 10 U/L (0-31); Albumin Level 4.1 g/dL (3.5-5.0); Alkaline Phosphatase 76 U/L (39-117); Anion Gap 13 (12-20); Aspartate Amino Transferase 10 U/L (5-31); Bilirubin Total 0.2 mg/dL (0.0-1.0); Blood Urea Nitrogen 13 mg/dL (9-16); Calcium 9.6 mg/dL (8.4-10.2); Carbon Dioxide 23 mmol/L (22-29); Chloride 107 mmol/L (96-108); Creatinine Clr Calc Pharmacy 45.1; Estimated Glomerular Filt Rate 57; Glucose Random 131 mg/dL (60-115); Lipase 46 U/L (8-78); Magnesium 2.1 mg/dL (1.6-2.6); Potassium 4.1 mmol/L (3.3-5.1); Sodium 139 mmol/L (135-145); Total Protein 7.9 g/dL (6.5-8.0)
[2024-02-28 16:09] LABS: Influenza A PCR NEGATIVE (Negative); Influenza B PCR NEGATIVE (Negative); Resp Syncy Virus RNA Qual PCR NEGATIVE (Negative); SARS COV2 PCR INHOUSE NEGATIVE (Negative)
[2024-02-28 18:34] VITALS: BP 122/63; PULSE 83; RESP 17; TEMP 36.6; O2SAT 97
[2024-02-28] MEDS: 0.9 % Sodium Chloride 1,000 ML 999 ML IV (20:43)
[2024-02-28] MEDS: iohexoL 350 MG/ML 100 ML INFUS..BTL IV (21:00)
[2024-02-28] MEDS: Acetaminophen 1,000 MG/100 ML PIGGYBACK 400 MG IV (21:16)
--- NOTE | 2024-02-28 21:20 | PC.NURSE ---
Pt returned from CT. Pt refused morphine and zofran and requested tylenol for pain Provider notified and new orders rec'd Pt medicated per mar Pts remains at bedside Plan of care ongoing
--- NOTE | 2024-02-28 21:22 | PC.NURSE ---
Pt requested and given socks Plan of care ongoing.
[2024-02-28 21:53] LABS: C Reactive Protein 5.25 mg/dL (< or = 0.50)
[2024-02-28 21:56] VITALS: BP 126/88; PULSE 75; RESP 16; TEMP 36.4; O2SAT 98
[2024-02-28] MEDS: Amoxicillin/Potassium Clav 875 MG TABLET PO (21:57)
[2024-02-28 22:14] VITALS: BP 126/88; PULSE 75; RESP 16; TEMP 36.4; O2SAT 98
== END 2024-02-28 22:20 | disposition home or self-care (01) ==
PROVIDERS: Physician Assistant Medical; Emergency Provider Emergency Medicine; PCP Internal Medicine Geriatric Medicine
DX: K57.32 Diverticulitis of large intestine without perforation or abscess without bleeding (principal); J02.9 Acute pharyngitis, unspecified; Z03.818 Encounter for observation for suspected exposure to other biological agents ruled out; R10.30 Lower abdominal pain, unspecified; I10 Essential (primary) hypertension; Z79.899 Other long term (current) drug therapy
CPT/HCPCS: 0241U; 74177; 80053; 83690; 83735; 85025; 86140; 87651; 99284; 99285; J0131; Q9967

== ENCOUNTER 2024-03-02 13:43 | Outpatient (REF) | payer OTHER, SELFPAY ==
--- NOTE | ~2024-03-02 | XR_ITS ---
EXAMINATION: XR HIP, RIGHT CLINICAL INFORMATION: Right hip pain COMPARISON: None available. TECHNIQUE: Two views of the right hip. FINDINGS: The bones are mildly diffusely demineralized. No fracture. Alignment is anatomic. Hip joint space is slightly decreased. Soft tissues are unremarkable. XR/XR hip RT min 2V IMPRESSION: Minimal osteoarthritis of the right hip. Electronically signed by: Marian Lares MD 03/02/2024 03:16 PM EDT
== END 2024-03-02 13:44 | disposition home or self-care (01) ==
LOC: HO.HHCX 13:43
PROVIDERS: Visit Provider Internal Medicine Geriatric Medicine
DX: M25.551 Pain in right hip (principal)
CPT/HCPCS: 73502

== ENCOUNTER → 2024-03-12 12:54 | Outpatient (REF) | payer OTHER, SELFPAY ==
--- NOTE | 2024-03-12 12:57 | CA_ITS ---
Transthoracic Echocardiogram Patient (Last, First, Middle): Wendie Faye M Gender: Female Date of : 1950 Age: 73 Procedure Date: 03/12/2024 Procedure Type: Transthoracic Echocardiogram Location: OP Height: 149.86 cm Weight: 68.04 kg BSA: 1.63 m2 Heart Rate: bpm BP: 122 / 80 mmHg Loan And Credit Manager: Referring MD: Murali Romano MD Symptoms: I77.810 - Thoracic aortic ectasia Study Quality: Good ECG Rhythm: Sinus Conclusions: - Normal left ventricular size and systolic function. There is mildly increased left ventricular wall thickness. The visually estimated ejection fraction is between 60-65%. - Normal right ventricular cavity size and systolic function. - There is mild dilatation of the ascending aorta measuring 4.00 cm. Findings Left Ventricle Normal left ventricular size and systolic function. There is mildly increased left ventricular wall thickness. The visually estimated ejection fraction is between 60-65%. There is no evidence of regional wall motion abnormalities. Abnormal diastolic function is noted. Spectral Doppler is indicative of an impaired relaxation filling pattern. E/E prime ratio is between 8 and 15 consistent with indeterminate filling pressures. Right Ventricle Normal right ventricular cavity size and systolic function. Atria The left atrium is mildly dilated. Aortic Valve There is a normal trileaflet aortic valve. There is mild calcification of the aortic valve. There is no aortic valve stenosis. There is no aortic valve regurgitation. Mitral Valve The mitral valve appears normal. There is no mitral valve regurgitation. There is no mitral valve stenosis. Pulmonic Valve The pulmonic valve is likely normal. Tricuspid Valve Normal tricuspid valve structure. There is no tricuspid valve regurgitation. Normal right atrial pressure. There is no evidence of pulmonary hypertension. Great Vessels There is mild dilatation of the ascending aorta measuring 4.00 cm. The visualized portions of the pulmonary artery and branches are normal. Venous The inferior vena cava is normal in size and collapses greater than 50% with inspiration. Pericardium/Pleural There is no evidence of pericardial effusion. Prior Study Comparison No significant change compared to prior study dated: 02/21/2023. Measurements 2D Linear Measurements IVSd: 0.95 0.6-0.9/0.6-1.0 cm LVIDd: 3.72 3.9-5.3/4.2-5.9 cm LVIDd Index: 2.28 2.4-3.2/2.2-3.1 cm/m2 LVIDs: 1.92 2.0-3.6 cm LVPWd: 0.90 0.7-1.1 cm Ao Root: 3.20 2.1-3.5 cm LA Diam: 3.30 2.7-3.8/3.0-4.0 cm LAIDs Index: 2.02 1.5-2.3 cm/m2 LV Mass: 126.57 67-162/88-224 g LV Mass Index: 77.65 43-95/49-115 g/m2 LVOT Diam: 2.00 3.0+(-)1.3 cm 2D Systolic Function EF 4C: 69.10 >55% EF 2C: 57.40 >55% EF BiP: 64.20 >55% Mitral Valve MV Pk E: 0.77 MV PK A: 1.12 MV Decel Time: 209.00 E/A: 0.70 E'Lateral: 9.36 E'Medial: 6.09 E/E' Med: 12.60 E/E' Lat: 8.20 PHT: 61.00 MVA PHT: 3.61 Decel Hickman: 3.65 Aortic Valve AoV Pk Flo: 1.84 AoV Mn Flo: 1.12 AoV VTI: 0.40 AoV Pk Grad: 14.00 Aov Mn Grad: 6.00 IRIS Cont.VTI: 1.89 LVOT LVOT Pk Flo: 1.05 LVOT Mn Flo: 0.63 LVOT VTI: 0.24 LVOT Pk Grad: 4.00 LVOT Mn Grad: 2.00 LVOT Diam: 2.00 LVOT Area: 3.14 Diastolic Function MV Pk E: 0.77 MV Pk A: 1.12 E/A: 0.70 E'Medial: 6.09 E/E' Med: 12.60 E' Laterial: 9.36 E/E' Lat: 8.20 Right Ventricle TAPSE (mm): 23.00 Tricuspid Valve TR Pk Flo: 2.42 TR Pk Grad: 23.00 RA Press: 3.00 RVSP: 26.00 Great Vessels Aorta Ao Root-2D: 3.20 2.0-3.7 cm Ao Asc: 4.00 2.1-3.4 cm Pulmonary Valve PV Pk Flo: 0.84 Peak PV Grad: 3.00 Updated in Other Vendor System with Status of Final Chirag Delacruz MD electronically signed on 03/14/2024 4:40:20 PM with status of Final
== END ==
LOC: HO.CARD 12:54
PROVIDERS: PCP Internal Medicine Geriatric Medicine; Visit Provider Internal Medicine
DX: I77.810 Thoracic aortic ectasia (principal)
CPT/HCPCS: 93306

== ENCOUNTER → 2024-03-12 12:57 | Outpatient (BNV) | payer OTHER, SELFPAY | PROVIDERS: PCP Internal Medicine Geriatric Medicine; Visit Provider Internal Medicine Cardiovascular Disease | DX: I35.8 Other nonrheumatic aortic valve disorders (principal); I77.810 Thoracic aortic ectasia | CPT/HCPCS: 93306 ==

== ENCOUNTER 2024-03-26 13:38 | Outpatient (REF) | payer OTHER, SELFPAY ==
[2024-03-27 03:51] LABS: Hepatitis A Antibody IgG REACTIVE (Nonreactive); ~Hepatitis A Antibody IgG 10.31 S/CO (0.00-0.99)
[2024-03-27 04:27] LABS: HBS Num1 137.27 mIU/mL (0-7.99); HBc Num1 0.24 S/CO (0.00-0.79); HBsAGNum1 0.35 S/CO (0.00-0.99); Hepatitis B Core Antibody Nonreactive (Nonreactive); Hepatitis B Surface Antigen Negative (Negative); ~HepC Num1 0.91 S/CO (0.00-0.79); ~Hepatitis B Surface Antibody REACTIVE (Nonreactive)
[2024-03-27 05:09] LABS: ~HepC Num2 0.94; ~HepC Num3 0.96; ~Hepatitis C Antibody Grayzone (Nonreactive)
[2024-03-30 15:33] LABS: HCV Log PCR <1.18 NOT DETECTED Log IU/mL (NOT DETECTED); HepC Viral Load <15 NOT DETECTED IU/mL (NOT DETECTED)
== END 2024-03-26 13:39 | disposition home or self-care (01) ==
LOC: HO.LAB 13:38
PROVIDERS: PCP Internal Medicine Geriatric Medicine; Visit Provider Internal Medicine
DX: Z11.59 Encounter for screening for other viral diseases (principal); K74.60 Unspecified cirrhosis of liver; K44.9 Diaphragmatic hernia without obstruction or gangrene; K21.00 Gastro-esophageal reflux disease with esophagitis, without bleeding
CPT/HCPCS: 36415; 86704; 86706; 86708; 86803; 87340; 87522; 99212

== ENCOUNTER 2024-03-26 13:38 | Outpatient (AMB) | payer OTHER, SELFPAY ==
--- NOTE | 2024-03-26 13:42 | A.OFFVIS_ITS ---
Vital Signs 03/26/24 13:43 Height 4 ft 11 in Weight 145 lb 8.081 oz BMI 29.4 BP 117/60 Blood Pressure Location Lt brachial Position Sitting Pulse 84 Intake Visit Reasons: chronic abdominal bloating/Caroline pt Intake Note: Wendie presents in the office as a Caroline patient follow up for abdominal bloating. CC: She states that she is having issues with her esophagus. She has pains in the esophagus and hurts since she had a EGD and she is not sure if it is related to that or if she has an infection. Every time she swallows it feels like there is something inside of her throat. Cooler Room Worker Required: Yes Cooler Room Worker Name: [id number] Allergies No Known Allergies Allergy (Verified 02/28/24 15:08) HPI Comments Details: 73-year-old female with past medical history of recurrent diverticulitis, AAA, hypertension, who is following up for recurrent diverticulitis. Seen with the help of a sole filler. Patient reports that in the last 12 months has had at least 3 episodes of diverticulitis. Went to [facility] 1 time, in the other 2 ER visits where it [facility]. She also reports intermittent burning chest pain, with difficulty swallowing. Was not aware that she was prescribed omeprazole after the endoscopy for reflux esophagitis and gastritis. EGD/Colonoscopy 08/12/23: * Grade B esophagitis * Hiatal hernia * Antral gastritis * Subepithelial gastric nodule ? Lipoma * Bulbar duodenitis * Sigmoid diverticulosis * External and internal hemorrhoids Labeled ?duodenum?, biopsy: Gastric body and focal antral mucosa with minimal chronic inactive gastritis; negative for intestinal metaplasia and dysplasia. B. Gastric nodules, greater curvature, biopsy: Gastric body mucosa with minimal chronic inactive gastritis; negative for H pylori, intestinal metaplasia and dysplasia. C. Labeled ?random gastric , biopsy: Duodenal mucosa with preserved villi and focal features of chronic/ non-specific duodenitis. Comment: Specimens A and C appear to have been switched and are reported as received. H pylori stain on A is negative. [facility] Medical History Left hand pain Hospital discharge follow-up Acute diverticulitis Hypertension Syncope and collapse Right knee pain Tendonitis Arthritis Surgical History Status post hardware removal Hx of colonoscopy History of hand surgery Family History Mother Alzheimer disease Hypertension Dementia Father Hypertension Social History Household Members: Spouse Housing: Apartment Do you presently have visiting nurse or other home services: Yes Alcohol intake: never Comment: pt refused bed alarm Patient Tobacco Use Status: Never used Tobacco e-Cigarette/Vaping Use: Never Used service: No Current occupational status: retired Current occupation: rt handed Review of Systems Const All systems reviewed & are unremarkable except as noted in HPI and below Physical Exam Vital Signs: Last Vital Signs Pulse 84 03/26/24 13:43 BP 117/60 03/26/24 13:43 BMI result Body Mass Index 29.4 No apparent distress Nonicteric Abdomen soft, nondistended Alert and oriented x3, normal gait Assessment & Plan Assessment & Plan (1) Diverticulitis: Code(s): K57.92 - Diverticulitis of intestine, part unspecified, without perforation or abscess without bleeding Category: Medical (2) Encounter for hepatitis C screening test for low risk patient: Code(s): Z11.59 - Encounter for screening for other viral diseases Category: Medical (3) Hiatal hernia with gastroesophageal reflux disease and esophagitis: Code(s): K44.9 - Diaphragmatic hernia without obstruction or gangrene; K21.00 - Gastro- esophageal reflux disease with esophagitis, without bleeding Category: Medical Plan 1. Measures discussed to mitigate risk of recurrent diverticulitis, including consuming moderate amount of red meat and alcohol. High-fiber diet. Also reviewed indication for surgical consultation, given 3 episodes of acute uncomplicated diverticulitis over the last 1 year. Patient agreeable. Referral requested 2. Hiatal hernia with reflux esophagitis Patient was informed that she will likely need to stay on anti secretory therapy indefinitely. Omeprazole 20 mg once daily to be taken every day 30-40 minutes before breakfast. Avoid lying down within 30-60 minutes after a meal. 3. Patient also requests screening for hepatitis-B and C. This has been ordered. 4. CRC screening Repeat colonoscopy in 5-7 years Follow up 1 year Orders: Orders Hepatitis A IgG Today Z11.59 - Encounter for screening for other viral diseases Hepatitis B Core Antibody Today Z11.59 - Encounter for screening for other viral diseases Hepatitis B Surface Antibody Today Z11.59 - Encounter for screening for other viral diseases Hepatitis B Surface Antigen Today Z11.59 - Encounter for screening for other viral diseases Hepatitis C Antibody Reflex Today K74.60 - Unspecified cirrhosis of liver, Z11.59 - Encounter for screening for other viral diseases Referrals General Surgery Referral K57.92 - Diverticulitis of intestine, part unsp ecified, without perforation or abscess without bleeding Medications: New omeprazole 20 mg PO DAILY 90 caps 0RF Coding Level of Care Code Est Pt Level 4 (31593) Diagnoses Diverticulitis K57.92 Encounter for hepatitis C screening test for low risk patient Z11.59 Hiatal hernia with gastroesophageal reflux disease and esophagitis K44.9; K21.00
[2024-03-26 13:43] VITALS: BP 117/60; PULSE 84; BMI 29.4
== END 2024-03-26 15:00 | disposition home or self-care (01) ==
PROVIDERS: PCP Internal Medicine Geriatric Medicine; Visit Provider Internal Medicine
DX: K57.92 Diverticulitis of intestine, part unspecified, without perforation or abscess without bleeding (principal); Z11.59 Encounter for screening for other viral diseases; K44.9 Diaphragmatic hernia without obstruction or gangrene; K21.00 Gastro-esophageal reflux disease with esophagitis, without bleeding
CPT/HCPCS: 99214

== ENCOUNTER 2024-03-30 15:17 | Outpatient (REF) | payer OTHER, SELFPAY ==
--- NOTE | ~2024-03-30 | MM_ITS ---
EXAMINATION: MM SCREENING DIGITAL BREAST TOMOSYNTHESIS, BILATERAL CLINICAL INFORMATION: Screening. Asymptomatic. COMPARISON: Mammography: Comparison is made with available priors TECHNIQUE: Digital breast mammography with tomosynthesis is performed in both the craniocaudal and mediolateral oblique views along with computer-aided detection (CAD). FINDINGS: There are scattered areas of fibroglandular density (ACR BI-RADS breast composition Category b). Left: There are no significant masses, abnormal calcifications, or other abnormalities. Right: Circumscribed oval mass upper inner breast middle depth. No suspicious calcifications or other abnormal findings. MM/MM tomosynthesis screening BI IMPRESSION: Additional imaging is recommended ASSESSMENT: BI-RADS BI-RADS 0 - Incomplete: Needs additional Imaging. RECOMMENDATION: 1. Additional views of the right breast 2. Targeted ultrasound if warranted after review of the additional views. 3. Radiology department staff will contact the patient for additional imaging. Additional Imaging required This examination should not preclude the clinical evaluation of a suspicious palpable abnormality. This patient's information was entered into a reminder system with a target due date for their next mammogram. Electronically signed by: Reina Rod DO 04/01/2024 09:31 PM ISAI
== END 2024-03-30 15:18 | disposition home or self-care (01) ==
LOC: HO.MAMMO 15:17
PROVIDERS: PCP Internal Medicine Geriatric Medicine; Visit Provider Internal Medicine Geriatric Medicine
DX: Z12.31 Encounter for screening mammogram for malignant neoplasm of breast (principal)
CPT/HCPCS: 77063; 77067

== ENCOUNTER → 2024-03-30 15:45 | Outpatient (BNV) | payer OTHER, SELFPAY | PROVIDERS: PCP Internal Medicine Geriatric Medicine; Visit Provider Internal Medicine | DX: Z12.31 Encounter for screening mammogram for malignant neoplasm of breast (principal) | CPT/HCPCS: 77063; 77067 ==

== ENCOUNTER 2024-04-06 12:19 | Outpatient (REF) | payer OTHER, SELFPAY ==
[2024-04-06 13:14] LABS: MANUAL DIFF FLAG NO
[2024-04-06 13:55] LABS: Basophils Absolute Auto 0.1 X10*3/uL (0.0-0.2); Basophils Percent Auto 0.4 % (0-2); Eosinophils Percent Auto 0.4 % (0-4); Hematocrit 34.2 % (37.0-47.0); Imm Gran Abs Auto 0.04 X10*3/uL (0.00-0.03); Imm Gran Pct Auto 0.4 % (0.0-0.4); Lymphocytes Percent Auto 17.9 % (20-40); Mean Corpuscular HGB Conc 32.2 g/dl (31.0-35.0); Mean Corpuscular Hemoglobin 27.4 pg (27.0-33.0); Mean Corpuscular Volume 85.3 fL (80.0-98.0); Mean Platelet Volume 9.1 fL (9.4-12.3); Monocytes Absolute Auto 0.9 X10*3/uL (0.1-1.2); Neutrophils Absolute Auto 8.2 x10*3/uL (2.0-8.3); Neutrophils Percent Auto 72.9 % (45-73); Platelet Count 397 X10*3/uL (160-400); Red Blood Count 4.01 X10*6/uL (4.20-5.50); Red Cell Distribution Width 13.5 % (11.0-16.0); White Blood Count 11.2 X10*3/uL (4.8-10.8)
[2024-04-06 14:13] LABS: Anion Gap 15 (12-20); Blood Urea Nitrogen 13 mg/dL (9-16); Calcium 9.9 mg/dL (8.4-10.2); Carbon Dioxide 24 mmol/L (22-29); Chloride 104 mmol/L (96-108); Estimated Glomerular Filt Rate > 60; Glucose Random 127 mg/dL (60-115); Potassium 4.1 mmol/L (3.3-5.1); Sodium 139 mmol/L (135-145)
== END 2024-04-06 12:20 | disposition home or self-care (01) ==
LOC: HO.HHCL 12:19
PROVIDERS: Visit Provider Internal Medicine Geriatric Medicine
DX: R10.32 Left lower quadrant pain (principal); Z87.19 Personal history of other diseases of the digestive system
CPT/HCPCS: 36415; 80048; 85025

== ENCOUNTER 2024-04-07 09:36 | Outpatient (AMB) | payer OTHER, SELFPAY ==
--- NOTE | 2024-04-07 09:37 | A.OFFVIS_ITS ---
Vital Signs 04/07/24 09:44 Height 4 ft 11 in Weight 149 lb BMI 30.1 BP 125/69 Blood Pressure Location Rt brachial Position Sitting Pulse 86 Pulse Oximetry (%) 99 Oxygen Delivery Method Room Air Intake Visit Reasons: Diverticulitis Intake Note: This patient presents for diverticulitis. Pt c/o; reports yesterday she felt like she had a fever and chills, reports pain. Websphere Portal Architect Required: Yes Websphere Portal Architect Language: Ring Sewer Services: Websphere Portal Architect Present Websphere Portal Architect Name: Claudia Information Interpreted: non-clinical & clinical Accompanied by: Spouse Allergies No Known Allergies Allergy (Verified 04/07/24 09:45) HPI HPI Diverticulitis: Details: [age] year old female here for follow-up for acute diverticulitis. She was admitted to hospital by the hospitalist service for uncomplicated diverticulitis of the sigmoid last March 21, 2024. She was discharged on 03/25/2024. She is scheduled to have colonoscopy next month. She however says that she has better only for about 4 days at home and she continued to have lower abdominal pain. She says this becomes so crampy and painful at times She felt febrile yesterday. She went to the urgent care center and says she was given IV antibiotics and oral antibiotics and dissected to see me She says she continues to have significant pain when she has cramping. She is passing flatus. She says she has had about 4 episodes of diverticulitis already and she had been admitted twice to the hospital the past year. [facility] Medical History Acute diverticulitis Left hand pain Hospital discharge follow-up Hypertension Syncope and collapse Right knee pain Tendonitis Arthritis Surgical History Status post hardware removal Hx of colonoscopy History of hand surgery Family History Mother Alzheimer disease Hypertension Dementia Father Hypertension Social History Household Members: Spouse Housing: Apartment Do you presently have visiting nurse or other home services: Yes Alcohol intake: never Comment: pt refused bed alarm Patient Tobacco Use Status: Never used Tobacco e-Cigarette/Vaping Use: Never Used service: No Current occupational status: retired Current occupation: rt handed Review of Systems Const Reports chills and Denies fever(s) Card Denies chest pain, Denies dyspnea and Denies dyspnea on exertion Resp Denies cough, Denies dyspnea and Denies dyspnea on exertion GI Denies hematochezia and Denies change in bowel habits Denies hematuria Musc Denies back pain and Denies limited range of motion Neuro Denies focal weakness and Denies convulsions Psych Denies depression and Denies mood swings Physical Exam Vital Signs: Last Vital Signs Pulse 86 04/07/24 09:44 BP 125/69 04/07/24 09:44 Pulse Ox 99 04/07/24 09:44 Oxygen Delivery Method Room Air 04/07/24 09:44 BMI result Body Mass Index 30.1 Const Other: Looks uncomfortable General: no acute distress Orientation/consciousness: patient oriented x3 Neck Neck: Yes no lymphadenopathy Resp Auscultation: clear to auscultation bilaterally Cardio Rhythm: regular rhythm GI Other: Some tenderness on lower abdomen Palpation (GI): Soft to palpation, Tenderness to palpation present (GI), no guarding and not rigid Neuro General: patient oriented x3 Assessment & Plan Assessment & Plan (1) Acute diverticulitis: Comment: Admitted H , and Code(s): K57.92 - Diverticulitis of intestine, part unspecified, without perforation or abscess without bleeding Category: Medical Plan: She was recently admitted for acute diverticulitis of sigmoid colon. This was uncomplicated. She was treated with IV antibiotics and she improved. However, she has been having this pain again since about 4 days after was discharge. She says she went to the urgent care yesterday he was given IV antibiotics and was instructed to see me as she did not want to go to the ER She looks uncomfortable. She does have some tenderness although her exam is benign. However, because of her persistent pain, I told her that she should go to the emergency room. She may need to be on bowel rest and on IV antibiotics again. She understands that there is a chance that she may require sigmoid resection and possible colostomy. She was hesitant about going to the ER but eventually says that she will go. She has never been seen by any surgeon before for her diverticulitis Coding Level of Care Code New Pt Level 3 (82852) Diagnoses Acute diverticulitis K57.92
[2024-04-07 09:44] VITALS: BP 125/69; PULSE 86; O2SAT 99; BMI 30.1
== END 2024-04-07 10:08 | disposition home or self-care (01) ==
PROVIDERS: PCP Internal Medicine Geriatric Medicine; Visit Provider Surgery
DX: K57.92 Diverticulitis of intestine, part unspecified, without perforation or abscess without bleeding (principal)
CPT/HCPCS: 99203

== ENCOUNTER 2024-04-07 10:00 | Inpatient (IN) | payer OTHER, SELFPAY ==
--- NOTE | ~2024-04-07 | CT_ITS ---
EXAMINATION: CT ABDOMEN AND PELVIS WITH CONTRAST CLINICAL INFORMATION: Worsening abdominal pain. COMPARISON: CT dated February 28, 2024. TECHNIQUE: Multidetector volumetric images were obtained from the superior aspect of the liver through the pubic symphysis following administration 85 mL of Omnipaque 350 intravenous contrast without reported immediate complications. Sagittal and coronal reformatted images were obtained on the technologist's workstation. Oral contrast: No This CT examination was performed using dose optimization techniques as appropriate, variously including the following: *Automated exposure control *Adjustment of mA and/or kV according to patient size (this includes techniques or standardized protocols for targeted exams where dose is matched to indication/reason for exam; i.e. extremities or head) *Use of iterative reconstruction technique DLP: 461 mGy-cm FINDINGS: There is a 2 cm peripheral thin enhancing fluid collection extending from the inferior right sigmoid colon wall into the pelvic peritoneal cavity just anterior to the posterior wall of the bladder. No gas. There is pericolonic edema pattern. Multiple gas and fluid-filled mildly prominent distal small bowel loops in the right lower pelvic peritoneal cavity. There is no overt extraluminal gas or pneumoperitoneum. Appendix is normal. No intestinal obstruction pattern. No change in the appearance of the intra-abdominal solid organs and vascular structures. No acute airspace disease or gross pulmonary nodules in the included lungs.. CT/CT abdomen pelvis w IV con IMPRESSION: 2 cm intramural phlegmon/abscess right inferior wall, sigmoid colon. Regional ileus.. Fleischner guidelines were followed. Electronically signed by: Domingo Ibarra MD 04/07/2024 12:12 PM [facility]
[2024-04-07 10:23] VITALS: BP 114/70; PULSE 81; RESP 18; TEMP 37.1; O2SAT 99; BMI 29.6
[2024-04-07 10:43] LABS: MANUAL DIFF FLAG NO
[2024-04-07 10:45] LABS: Basophils Percent Auto 0.4 % (0-2); Eosinophils Absolute Auto 0.1 X10*3/uL (0.0-0.4); Eosinophils Percent Auto 0.4 % (0-4); Hematocrit 32.4 % (37.0-47.0); Hemoglobin 10.8 g/dl (12.0-16.0); Imm Gran Abs Auto 0.04 X10*3/uL (0.00-0.03); Imm Gran Pct Auto 0.4 % (0.0-0.4); Lymphocytes Absolute Auto 2.2 X10*3/uL (1.2-4.9); Lymphocytes Percent Auto 19.8 % (20-40); Mean Corpuscular HGB Conc 33.3 g/dl (31.0-35.0); Mean Corpuscular Hemoglobin 28.1 pg (27.0-33.0); Mean Corpuscular Volume 84.4 fL (80.0-98.0); Mean Platelet Volume 8.8 fL (9.4-12.3); Monocytes Percent Auto 9.1 % (2-11); Neutrophils Absolute Auto 7.9 x10*3/uL (2.0-8.3); Neutrophils Percent Auto 69.9 % (45-73); Platelet Count 342 X10*3/uL (160-400); Red Blood Count 3.84 X10*6/uL (4.20-5.50); Red Cell Distribution Width 13.4 % (11.0-16.0); White Blood Count 11.3 X10*3/uL (4.8-10.8)
[2024-04-07 10:46] LABS: Appearance Urine Clear; Color Urine Yellow; Glucose Urine UA Negative (Negative); Leukocyte Esterase Urine Small (1+) (Negative); Nitrite Urine Negative (Negative); PH 5.5 (5.0-9.0); Specific Gravity - Urine 1.015 (1.005-1.025); UMIC TRIGGER UACC YES; Urine Blood Negative (Negative); Urine Ketones Negative (Negative); Urine Protein Negative (Neg-Trace)
--- NOTE | 2024-04-07 10:46 | ED_ITS ---
HPI - General Adult General Chief complaint: Abdominal Pain Stated complaint: lower abd pain Time Seen by Provider: 04/07/24 10:45 Source: patient and spanish interpreter (all interactions with this patient were facilitated with an [facility] historic interpreter) Mode of arrival: ambulatory Limitations: language barrier (all interactions with this patient were facilitated with an [facility] historic interpreter) History of Present Illness ED Provider: Merna Abraham PA-C HPI narrative: Patient is a 73 year old assigned female at with a history of diverticulitis presenting to the emergency department today with continued abdominal pain and dizziness. Patient states that she was recently treated for diverticulitis but over the last 4 days she has had worsening abdominal pain and intermittent dizziness. Patient denies any lightheadedness, nausea, vomiting, fever, chills, blurry vision, double vision, loss of vision, chest pain, difficulty breathing, shortness of breath, back pain, night sweats, pain with urination, increased urinary frequency, increased urinary urgency, blood in her urine or stool, syncope or a near syncopal episode, recent trauma or falls, bowel incontinence, bladder incontinence, or any other complaints at this time. Onset (ago): day(s) (4) Location: abdomen Relieving factors: none Exacerbating factors: none Associated symptoms: denies other symptoms Treatments prior to arrival: none Related Data Home Medications ?Medication ?Instructions ?Recorded ?Confirmed budesonide 0.5 mg/2 mL suspension mg inhalation 03/26/24 for nebulization loratadine 10 mg tablet 10 mg PO DAILY 03/26/24 zolpidem 10 mg tablet 10 mg PO BEDTIME PRN Sleep 03/26/24 amlodipine 5 mg tablet 5 mg PO DAILY 04/07/24 amoxicillin 875 mg-potassium 1 tab PO BID 04/07/24 clavulanate 125 mg tablet Previous Rx's ?Medication ?Instructions ?Recorded losartan 25 mg tablet 25 mg PO DAILY #90 tabs 09/09/23 omeprazole 20 mg capsule,delayed 20 mg PO DAILY #90 caps 03/26/24 release Allergies Allergy/AdvReac Type Severity Reaction Status Date / Time No Known Allergies Allergy Verified 04/07/24 10:24 Review of Systems 2 Constitutional: Constitutional: Reports no additional constitutional complaints, Denies chills, Denies fever(s) and Denies night sweats Eyes: Eyes: Reports no additional eye complaints, Denies blurry vision, Denies change in vision, Denies diplopia, Denies eye discharge, Denies loss of vision and Denies eye pain ENT: Reports dizziness Cardiovascular: Cardiovascular: Reports no additional cardiovascular complaints, Denies chest pain, Denies lightheadedness, Denies Loss of Consciousness and Denies dyspnea Respiratory: Respiratory: Reports no additional respiratory complaints and Denies dyspnea Gastrointestinal: Gastrointestinal: Reports no additional gastrointestinal complaints, Reports abdominal pain, Denies melena, Denies hematochezia, Denies change in bowel habits and Denies change in stool character Genitourinary: Genitourinary: Denies hematuria, Denies urinary frequency, Denies dysuria, Denies urinary incontinence, Denies urinary hesitancy and Denies urinary urgency Musculoskeletal: Musculoskeletal: Reports no additional musculoskeletal complaints, Denies numbness and Denies tingling Neurologic: Reports dizziness, Denies loss of vision, Denies numbness and Denies tingling Psychiatric: Psychiatric: Reports no additional psychiatric complaints Endocrine: Endocrine: Reports no additional endocrine complaints Hematologic/Lymphatic: Hematologic/Lymphatic: Reports no additional hematologic/lymphatic complaints Allergic/Immunologic: Allergic/Immunologic: Reports no additional allergic/immunologic complaints [facility] Past Medical History Attestation statement: The following information was validated with the patient. Source: old records reviewed and nursing notes reviewed Medical History Acute diverticulitis Left hand pain Hospital discharge follow-up Hypertension Syncope and collapse Right knee pain Tendonitis Arthritis Surgical History Status post hardware removal Hx of colonoscopy History of hand surgery Family History Family History Mother Alzheimer disease Hypertension Dementia Father Hypertension Social History Social History Household Members: Spouse Housing: Apartment Do you presently have visiting nurse or other home services: Yes Alcohol intake: never Comment: pt refused bed alarm Patient Tobacco Use Status: Never used Tobacco Smoked in Last 30 Days: No e-Cigarette/Vaping Use: Never Used Use of substances other than those prescribed or required for medical reasons: No Advance Directives: No Advance Directives Information Provided: Yes service: No Current occupational status: retired Current occupation: rt handed Physical Exam ED Vital Signs: Vital Signs - 24 hr 04/07/24 10:23 Temperature 98.8 F Pulse Rate 81 Respiratory Rate 18 Blood Pressure 114/70 Pulse Oximetry 99 Oxygen Delivery Method Room Air BMI result Body Mass Index 29.6 Const General: cooperative, no acute distress, alert and awake Nutritional Appearance: well nourished Orientation/consciousness: patient oriented x3 Limitations: no limitations HENMT Head: Yes normal to inspection and Yes atraumatic Ears: hearing grossly normal bilaterally and external ears normal General nose exam: Normal external nose present, no nasal discharge noted and no epistaxis Face and sinus: Yes normal facial exam, No abrasion and No laceration Mouth: Normal oral and palatal mucosa present, no drooling and no muffled voice Eyes General: appearance normal, both eyes and all related structures Periorbital: periorbital findings normal Eyelids: Yes eyelids normal Conjunctivae: conjunctivae normal Pupils: Equal, round and reactive pupils present EOM: EOMs intact bilaterally Neck Neck: Yes normal visual inspection, Yes full ROM and Yes no lymphadenopathy Chest Chest palpation & inspection: normal inspection of the chest Resp Effort & Inspection: normal respiratory effort and able to speak in complete sentences GI Inspection: Yes normal to inspection Palpation (GI): Soft to palpation, not firm, Tenderness to palpation present (GI), no guarding and not rigid Neuro General: patient oriented x3 and moves all extremities Cranial nerves: Yes Equal, round and reactive pupils present Cognition (Neuro): normal cognition Extrem General: Yes normal to inspection, Yes full ROM and Yes capillary refill normal Psych Appearance: grossly normal Mental Status: mental status grossly normal Affect: normal affect Attitude: cooperative Thought process: Normal thought process present Thought content: Normal thought content present Insight: Good insight present (Psych) Medications Administered Discontinued Medications Generic Name Dose Route Start Last Admin Trade Name Freq PRN Reason Stop Dose Admin Acetaminophen 1,000 mg in 100 mls @ 400 mls/hr 04/07/24 10:55 04/07/24 12:06 Ofirmev IV 04/07/24 11:09 Infused ONCE ONE Infusion Piperacillin Sod/Tazobactam 50 mls @ 100 mls/hr 04/07/24 12:20 04/07/24 12:45 Sod 3.375 gm/ Sodium Chloride IV 04/07/24 12:49 100 mls/hr ONCE ONE Administration Piperacillin Sod/Tazobactam 50 mls @ 100 mls/hr 04/07/24 12:39 04/07/24 12:47 Sod 3.375 gm/ Sodium Chloride IV 04/07/24 13:08 Not Given ONCE ONE Iohexol 100 ml 04/07/24 11:23 04/07/24 11:23 Iohexol 350 Mg/Ml 100 Ml Infus..Btl IV 04/07/24 11:24 85 ml ONCE ONE Administration Medical Decision Making Medical Decision Making MDM Narrative: Patient is a 73 year old assigned female at with a history of diverticulitis presenting to the emergency department today with continued abdominal pain and dizziness. Patient's physical exam was as noted in the physical exam portion of this note. Patient's blood work showed a WBC count of 11.3 but were otherwise unremarkable. Patient's urine showed no acute process. Patient's abd/pelvis CT showed a 2cm intramural phlegmon/abscess in the right inferior wall of the sigmoid colon. I spoke to Dr. iCfuentes who recommended starting Zosyn and admitting the patient to his service. I explained my physical exam findings as well as all test results to the patient. I answered all questions asked by the patient. Patient received IV Tylenol which, upon re- evaluation, she stated it helped her pain significantly. Patient verbalized agreement and understanding with this treatment plan and admission. Differential Diagnosis Differential Diagnoses: The differential diagnosis associated with the presentation includes Intestinal perforation Diverticulitis Abdominal pain Dizziness Abdominal abscess Admission/Observation Consideration of admission/observation: Escalation of care including admission/observation considered Patient admitted. Consult Healthcare Provider Management of the patient was discussed with: Director Of Recruitment (spoke to the general surgeon, Dr. Cifuentes, as noted in the MDM Rationale portion of this note.) Lab Data [facility] Lab Attestation statement: I reviewed the patient's lab results. My interpretation of these results are in the MDM Rationale portion of this note. 04/07/24 10:35 04/07/24 10:35 Labs: Lab Results 04/07/24 Range/Units 10:35 WBC 11.3 H (4.8-10.8) X10*3/uL RBC 3.84 L (4.20-5.50) X10*6/uL Hgb 10.8 L (12.0-16.0) g/dl Hct 32.4 L (37.0-47.0) % MCV 84.4 (80.0-98.0) fL MCH 28.1 (27.0-33.0) pg MCHC 33.3 (31.0-35.0) g/dl RDW 13.4 (11.0-16.0) % Plt Count 342 (160-400) X10*3/uL MPV 8.8 L (9.4-12.3) fL Immature Gran % (Auto) 0.4 (0.0-0.4) % Neut % (Auto) 69.9 (45-73) % Lymph % (Auto) 19.8 L (20-40) % [place] % (Auto) 9.1 (2-11) % Eos % (Auto) 0.4 (0-4) % Baso % (Auto) 0.4 (0-2) % Lymph # (Auto) 2.2 (1.2-4.9) X10*3/uL [place] # (Auto) 1.0 (0.1-1.2) X10*3/uL Eos # (Auto) 0.1 (0.0-0.4) X10*3/uL Baso # (Auto) 0.0 (0.0-0.2) X10*3/uL Abs Immat Gran (auto) 0.04 H (0.00-0.03) X10*3/uL Absolute Neuts (auto) 7.9 (2.0-8.3) x10*3/uL Absolute Nucleated RBC 0.000 (0.0-0.012) X10*3/uL Nucleated RBC % (auto) 0.0 (0.0-0.2) /100WBC Sodium 137 (135-145) mmol/L Potassium 4.1 (3.3-5.1) mmol/L Chloride 105 (96-108) mmol/L Carbon Dioxide 25 (22-29) mmol/L Anion Gap 11 L (12-20) BUN 11 (9-16) mg/dL Creatinine 0.74 (0.5-1.4) mg/dL Estim Creat Clear Calc 57.8 Estimated GFR > 60 Random Glucose 118 H (60-115) mg/dL Calcium 8.8 D (8.4-10.2) mg/dL Total Bilirubin 0.6 (0.0-1.0) mg/dL AST 17 (5-31) U/L ALT 15 (0-31) U/L Alkaline Phosphatase 68 (39-117) U/L Total Protein 7.9 (6.5-8.0) g/dL Albumin 4.0 (3.5-5.0) g/dL Urine Color Yellow Urine Appearance Clear Urine pH 5.5 (5.0-9.0) Ur Specific [place] 1.015 (1.005-1.025) Urine Protein Negative (Neg-Trace) mg/dL Urine Glucose (UA) Negative (Negative) mg/dL Urine Ketones Negative (Negative) mg/dL Urine Blood Negative (Negative) Urine Nitrite Negative (Negative) Ur Leukocyte Esterase Small (1+) H (Negative) Urine RBC 0-2 (0-2) /HPF Urine WBC 6-10 H (0-5) /HPF Ur Squamous Epith Cells 3-5 (0-2) /HPF Urine Bacteria None Seen (None Seen) Hyaline Casts 0-2 (0-2) /LPF Independent Interpretation I performed an independent interpretation of an: CT Scan Interpretation: My interpretation is in agreement with the radiologist's impression of this imaging study. L EXAMINATION: CT ABDOMEN AND PELVIS WITH CONTRAST CLINICAL INFORMATION: Worsening abdominal pain. COMPARISON: CT dated February 28, 2024. TECHNIQUE: Multidetector volumetric images were obtained from the superior aspect of the liver through the pubic symphysis following administration 85 mL of Omnipaque 350 intravenous contrast without reported immediate complications. Sagittal and coronal reformatted images were obtained on the technologist's workstation. Oral contrast: No This CT examination was performed using dose optimization techniques as appropriate, variously including the following: *Automated exposure control *Adjustment of mA and/or kV according to patient size (this includes techniques or standardized protocols for targeted exams where dose is matched to indication/reason for exam; i.e. extremities or head) *Use of iterative reconstruction technique DLP: 461 mGy-cm FINDINGS: There is a 2 cm peripheral thin enhancing fluid collection extending from the inferior right sigmoid colon wall into the pelvic peritoneal cavity just anterior to the posterior wall of the bladder. No gas. There is pericolonic edema pattern. Multiple gas and fluid-filled mildly prominent distal small bowel loops in the right lower pelvic peritoneal cavity. There is no overt extraluminal gas or pneumoperitoneum. Appendix is normal. No intestinal obstruction pattern. No change in the appearance of the intra-abdominal solid organs and vascular structures. No acute airspace disease or gross pulmonary nodules in the included lungs. CT/CT abdomen pelvis w IV con IMPRESSION: 2 cm intramural phlegmon/abscess right inferior wall, sigmoid colon.Regional ileus.. Fleischner guidelines were followed. Electronically signed by: Domingo Ibarra MD 04/07/2024 12:12 PM [facility] Dictated By: Domingo Law MD Signed By: Electronically signed by Domingo Velez MD 04/07/24 1212 Radiology Impression Discussion of test interpretation with radiology: I have reviewed the radiologist's reading. Critical Care Time Critical Care Time Critical Care Time: Yes Total Critical Care Time: 51 Attestation: I spent 51 minutes of Critical Care Time with this patient. This does not include time spent on separately reported billable procedures. Discharge Plan Discharge Clinical Impression: Intra-abdominal abscess Patient Disposition: Admitted As Inpatient
[2024-04-07 10:51] LABS: Bacteria Urine None Seen (None Seen); Hyaline Casts Urine 0-2 /LPF (0-2); RBC Urine 0-2 /HPF (0-2); UACC Culture Trigger YES
[2024-04-07 11:02] LABS: Alanine Aminotransferase 15 U/L (0-31); Alkaline Phosphatase 68 U/L (39-117); Anion Gap 11 (12-20); Aspartate Amino Transferase 17 U/L (5-31); Bilirubin Total 0.6 mg/dL (0.0-1.0); Blood Urea Nitrogen 11 mg/dL (9-16); Calcium 8.8 mg/dL (8.4-10.2); Carbon Dioxide 25 mmol/L (22-29); Chloride 105 mmol/L (96-108); Creatinine Clr Calc Pharmacy 57.8; Estimated Glomerular Filt Rate > 60; Glucose Random 118 mg/dL (60-115); Potassium 4.1 mmol/L (3.3-5.1); Sodium 137 mmol/L (135-145); Total Protein 7.9 g/dL (6.5-8.0)
[2024-04-07] MEDS: iohexoL 350 MG/ML 100 ML INFUS..BTL IV (11:23)
[2024-04-07] MEDS: Acetaminophen 1,000 MG/100 ML PIGGYBACK 400 MG IV (11:43)
[2024-04-07] MEDS: Piperacillin Sodium/Tazobactam 3.375 GM in 0.9 % Sodium Chloride 50 ML IV (12:45)
[2024-04-07] MEDS: Lactated Ringers 1,000 ML 80 ML IVCONT (13:39)
--- NOTE | 2024-04-07 14:52 | PHA.MEDREC ---
Addendum entered by Rain Fagan RPh 04/07/24 15:19: Med rec was reviewed by [facility]. Original Note: Pharmacy Consult ? Medication Reconciliation Pharmacy has completed the medication reconciliation. Spoke to patient though forging die finisher service to confirm med list. Patent states she takes clonazepam 2 mg to sleep, however there are no claims and PDMP shows nothing for clonazepam. Claims shows patient has been filling zolpidem 10 mg for sleep. left Zolpeidem on med list.
--- NOTE | 2024-04-07 15:21 | PM.HPGS ---
History of Present Illness History of Present Illness Date of Service: 04/12/24 Chief complaint: diverticular abscess Narrative: Wendie Abdalla is a 73 year old female here in the ER for abdominal pain I had seen her in the office earlier today because of abdominal pain a recent diagnosis of acute diverticulitis. She was admitted to hospital by the hospitalist service for uncomplicated diverticulitis of the sigmoid last March 21, 2024. She was discharged on 03/25/2024. She is scheduled to have colonoscopy next month. She however says that she has better only for about 4 days at home and she continued to have lower abdominal pain. She says this becomes so crampy and painful at times She felt febrile yesterday. She went to the urgent care center and says she was given IV antibiotics and oral antibiotics and dissected to see me She says she continues to have significant pain when she has cramping. She is passing flatus. She says she has had about 4 episodes of diverticulitis already and she had been admitted twice to the hospital the past year. Review of Systems Constitutional: Constitutional: Denies chills and Denies fever(s) Cardiovascular: Cardiovascular: Denies chest pain, Denies dyspnea and Denies dyspnea on exertion Respiratory: Respiratory: Denies cough, Denies dyspnea and Denies dyspnea on exertion Gastrointestinal: Gastrointestinal: Denies hematochezia and Denies change in bowel habits Genitourinary: Genitourinary: Denies hematuria Musculoskeletal: Musculoskeletal: Denies back pain and Denies limited range of motion Neurologic: Denies focal weakness and Denies convulsions Psychiatric: Psychiatric: Denies depression and Denies mood swings [facility] Past Medical History Medical History Acute diverticulitis Left hand pain Hospital discharge follow-up Hypertension Syncope and collapse Right knee pain Tendonitis Arthritis Family History Family History Mother Alzheimer disease Hypertension Dementia Father Hypertension Surgical History Surgical History Status post hardware removal Hx of colonoscopy History of hand surgery Social History Social History Household Members: None Housing: House Do you presently have visiting nurse or other home services: Yes Alcohol intake: never Comment: pt refused bed alarm Patient Tobacco Use Status: Never used Tobacco Smoked in Last 30 Days: No e-Cigarette/Vaping Use: Never Used Use of substances other than those prescribed or required for medical reasons: No Currently Displaying Signs/Symptoms of Drug Intoxication Withdrawal: No Have you been hit, kicked, punched, or otherwise hurt by someone within the past year? If so, by whom?: No Do you feel safe in your current relationship?: No Is there a partner from a previous relationship who is making you feel unsafe now?: No Are you made to feel afraid or neglected: No Advance Directives: No Advance Directives Information Provided: Yes Do you have a plan to hurt others: No Plan Recently lost weight without trying: Yes How much weight loss: 2-13 pounds Eating poorly because of decreased appetite: Yes Nutrition screen score: 4 Nutrition Risks: Poor intake 0-25% >4 days Patient : No : No Poor oral hygiene: No service: No Current occupational status: retired Current occupation: rt handed Meds Allergies Allergy/AdvReac Type Severity Reaction Status Date / Time No Known Allergies Allergy Verified 04/07/24 10:24 Active Medications: Current Medications Acetaminophen (Acetaminophen 325 Mg Tablet) 650 mg PO Q6H PRN PRN Reason: Pain, Mild (Pain Scale 1-3), fever or headache Calcium Carbonate (Calcium Carbonate 750 Mg Tab.Chew) 750 mg PO Q4H PRN PRN Reason: Heartburn Heparin Sodium (Porcine) (Heparin Sodium,Porcine 5,000 Unit/Ml Vial) 5,000 unit SUBCUT Q12H [facility] Lactated Ringer's (Lr) 1,000 mls @ 80 mls/hr IVCONT .[id number] [facility] Last Admin: 04/07/24 13:39 Dose: 80 mls/hr Magnesium Hydroxide (Milk Of Magnesia 30 Ml Oral.Susp) 30 ml PO DAILY PRN PRN Reason: Constipation Melatonin (Melatonin 3 Mg Tablet) 6 mg PO BEDTIME PRN PRN Reason: Insomnia Sodium Chloride (0.9 % Sodium Chloride Flush 3 Ml Syringe) 3 ml IVFLUSH QSHIFT [facility] Home Medications ?Medication ?Instructions ?Recorded ?Confirmed ?Last Taken ?Type loratadine 10 mg tablet 10 mg PO DAILY PRN Allergy Symptoms 03/26/24 04/07/24 Unknown History zolpidem 10 mg tablet 10 mg PO BEDTIME PRN Sleep 03/26/24 04/07/24 Unknown History amoxicillin 875 mg-potassium 1 tab PO BID 04/07/24 04/07/24 Unknown History clavulanate 125 mg tablet Physical Exam Vital Signs: Vital Signs: Last Vital Signs Temp 98.8 F 04/07/24 10:23 Pulse 81 04/07/24 10:23 Resp 18 04/07/24 10:23 BP 114/70 04/07/24 10:23 Pulse Ox 99 04/07/24 10:23 O2 Del Method Room Air 04/07/24 10:23 BMI result Body Mass Index 29.6 Const: General: comfortable and no acute distress Orientation/consciousness: patient oriented x3 Neck: Neck: Yes no lymphadenopathy Resp: Auscultation: clear to auscultation bilaterally Cardio: Rhythm: regular rhythm GI: Other: Some tenderness in the lower abdomen with no guarding or rebound Palpation (GI): Soft to palpation, Tenderness to palpation present (GI) and no guarding Neuro: General: patient oriented x3 Results Results Labs: Short CBC 04/07/24 Range/Units 10:35 WBC 11.3 H (4.8-10.8) X10*3/uL Hgb 10.8 L (12.0-16.0) g/dl Hct 32.4 L (37.0-47.0) % Plt Count 342 (160-400) X10*3/uL BMP 04/07/24 10:35 Sodium 137 Potassium 4.1 Chloride 105 Carbon Dioxide 25 BUN 11 Creatinine 0.74 Calcium 8.8 D Liver Function 04/07/24 Range/Units 10:35 Total Bilirubin 0.6 (0.0-1.0) mg/dL AST 17 (5-31) U/L ALT 15 (0-31) U/L Alkaline Phosphatase 68 (39-117) U/L Albumin 4.0 (3.5-5.0) g/dL Urine 04/07/24 Range/Units 10:35 Urine Color Yellow Urine Appearance Clear Urine pH 5.5 (5.0-9.0) Ur Specific [place] 1.015 (1.005-1.025) Urine Protein Negative (Neg-Trace) mg/dL Urine Glucose (UA) Negative (Negative) mg/dL Abdomen CT scan report/results: report reviewed and image reviewed CT scan - pelvis: report reviewed and image reviewed Additional studies: Laboratory Results WBC 11.3 X10*3/uL (4.8-10.8) H 04/07/24 10:35 RBC 3.84 X10*6/uL (4.20-5.50) L 04/07/24 10:35 Hgb 10.8 g/dl (12.0-16.0) L 04/07/24 10:35 Hct 32.4 % (37.0-47.0) L 04/07/24 10:35 MCV 84.4 fL (80.0-98.0) 04/07/24 10:35 MCH 28.1 pg (27.0-33.0) 04/07/24 10:35 MCHC 33.3 g/dl (31.0-35.0) 04/07/24 10:35 RDW 13.4 % (11.0-16.0) 04/07/24 10:35 Plt Count 342 X10*3/uL (160-400) 04/07/24 10:35 MPV 8.8 fL (9.4-12.3) L 04/07/24 10:35 Immature Gran % (Auto) 0.4 % (0.0-0.4) 04/07/24 10:35 Neut % (Auto) 69.9 % (45-73) 04/07/24 10:35 Lymph % (Auto) 19.8 % (20-40) L 04/07/24 10:35 [place] % (Auto) 9.1 % (2-11) 04/07/24 10:35 Eos % (Auto) 0.4 % (0-4) 04/07/24 10:35 Baso % (Auto) 0.4 % (0-2) 04/07/24 10:35 Lymph # (Auto) 2.2 X10*3/uL (1.2-4.9) 04/07/24 10:35 [place] # (Auto) 1.0 X10*3/uL (0.1-1.2) 04/07/24 10:35 Eos # (Auto) 0.1 X10*3/uL (0.0-0.4) 04/07/24 10:35 Baso # (Auto) 0.0 X10*3/uL (0.0-0.2) 04/07/24 10:35 Abs Immat Gran (auto) 0.04 X10*3/uL (0.00-0.03) H 04/07/24 10:35 Absolute Neuts (auto) 7.9 x10*3/uL (2.0-8.3) 04/07/24 10:35 Absolute Nucleated RBC 0.000 X10*3/uL (0.0-0.012) 04/07/24 10:35 Nucleated RBC % (auto) 0.0 /100WBC (0.0-0.2) 04/07/24 10:35 Sodium 137 mmol/L (135-145) 04/07/24 10:35 Potassium 4.1 mmol/L (3.3-5.1) 04/07/24 10:35 Chloride 105 mmol/L (96-108) 04/07/24 10:35 Carbon Dioxide 25 mmol/L (22-29) 04/07/24 10:35 Anion Gap 11 (12-20) L 04/07/24 10:35 BUN 11 mg/dL (9-16) 04/07/24 10:35 Creatinine 0.74 mg/dL (0.5-1.4) 04/07/24 10:35 Estim Creat Clear Calc 57.8 04/07/24 10:35 Estimated GFR > 60 04/07/24 10:35 Random Glucose 118 mg/dL (60-115) H 04/07/24 10:35 Calcium 8.8 mg/dL (8.4-10.2) D 04/07/24 10:35 Total Bilirubin 0.6 mg/dL (0.0-1.0) 04/07/24 10:35 AST 17 U/L (5-31) 04/07/24 10:35 ALT 15 U/L (0-31) 04/07/24 10:35 Alkaline Phosphatase 68 U/L (39-117) 04/07/24 10:35 Total Protein 7.9 g/dL (6.5-8.0) 04/07/24 10:35 Albumin 4.0 g/dL (3.5-5.0) 04/07/24 10:35 Urine Color Yellow 04/07/24 10:35 Urine Appearance Clear 04/07/24 10:35 Urine pH 5.5 (5.0-9.0) 04/07/24 10:35 Ur Specific [place] 1.015 (1.005-1.025) 04/07/24 10:35 Urine Protein Negative mg/dL (Neg-Trace) 04/07/24 10:35 Urine Glucose (UA) Negative mg/dL (Negative) 04/07/24 10:35 Urine Ketones Negative mg/dL (Negative) 04/07/24 10:35 Urine Blood Negative (Negative) 04/07/24 10:35 Urine Nitrite Negative (Negative) 04/07/24 10:35 Ur Leukocyte Esterase Small (1+) (Negative) H 04/07/24 10:35 Urine RBC 0-2 /HPF (0-2) 04/07/24 10:35 Urine WBC 6-10 /HPF (0-5) H 04/07/24 10:35 Ur Squamous Epith Cells 3-5 /HPF (0-2) 04/07/24 10:35 Urine Bacteria None Seen (None Seen) 04/07/24 10:35 Hyaline Casts 0-2 /LPF (0-2) 04/07/24 10:35 Impressions Abdomen/Pelvis CT 04/07/24 11:16 IMPRESSION: 2 cm intramural phlegmon/abscess right inferior wall, sigmoid colon. Regional ileus.. Fleischner guidelines were followed. Electronically signed by: Domingo Ibarra MD 04/07/2024 12:12 PM [facility] Assessment and Plan (1) Acute diverticulitis: Status: Acute She had been recently discharged for acute diverticulitis. She has had recurrence of pain 4 days after discharge. I had therefore sent her to the ED from the office because of this. Her CAT scan shows a small 2 cm intramural abscess. She otherwise has a benign exam. She is hemodynamically stable and is not septic looking I will start her on IV antibiotics. She is not a candidate for IR drainage because of the intramural in nature of the abscess. She can have some clear liquids. Her exam is overall benign. I have consulted the hospitalist service because of her history of hypertension, and she says she has some aortic aneurysm. Quality Stroke Does the patient have a stroke diagnosis?: No VTE Prior VTE?: No VTE Risk Level:: Medical - moderate - high VTE Device Contraindication: N/A - Device Ordered VTE Drug Contraindication: N/A - Med Ordered Procedures Date of Service Date of Service: 04/12/24
[2024-04-07 16:28] VITALS: BP 111/63; PULSE 68; RESP 13; TEMP 36.7; O2SAT 99
[2024-04-07 19:30] VITALS: BMI 31.4
[2024-04-07 19:33] VITALS: BP 128/67; PULSE 75; RESP 20; TEMP 36.4; O2SAT 99
[2024-04-08] VITALS (8 sets, daily range): BP systolic 109–150; BP diastolic 56–75; PULSE 73–91; RESP 16–20; TEMP 36–37.8; O2SAT 95–98
[2024-04-08] MEDS: Acetaminophen 325 MG TABLET 650 MG PO ×2 (00:18→19:43)
[2024-04-08] MEDS: Lactated Ringers 1,000 ML 80 ML IVCONT ×2 (02:30→17:27)
[2024-04-08] MEDS: Omeprazole 20 MG CAPSULE.DR PO (05:59)
[2024-04-08] MEDS: Morphine Sulfate 2 MG/ML CARTRIDGE IVPUSH (06:29)
--- NOTE | 2024-04-08 08:09 | P.PNGS_ITS ---
Subjective Subjective Date of Service: 04/08/24 Interval history: Says she continues to have periodic lower abdominal pain Well controlled this morning with morphine No nausea or vomiting T-max 100 degrees last night, no fever this morning Physical Exam 2 Vital Signs: Vital Signs: Last Vital Signs Temp 97.3 F 04/08/24 07:20 Pulse 81 04/08/24 07:20 Resp 18 04/08/24 07:20 BP 112/64 04/08/24 07:20 Pulse Ox 96 04/08/24 07:20 O2 Del Method Room Air 04/08/24 07:20 BMI result Body Mass Index 31.4 Const: Other: Complains of periodic pain General: comfortable and no acute distress Resp: Effort & Inspection: normal respiratory effort GI: Palpation (GI): Soft to palpation, not firm, Tenderness to palpation present (GI) (Some tenderness on lower abdomen) and no guarding Objective Data Active Medications Acetaminophen (Acetaminophen 325 Mg Tablet) 650 mg PO Q6H PRN PRN Reason: Pain, Mild (Pain Scale 1-3), fever or headache Last Admin: 04/08/24 00:18 Dose: 650 mg Documented By: GEORGIE Amlodipine Besylate (Amlodipine Besylate 5 Mg Tablet) 5 mg PO DAILY [facility]; Protocol Calcium Carbonate (Calcium Carbonate 750 Mg Tab.Chew) 750 mg PO Q4H PRN PRN Reason: Heartburn Heparin Sodium (Porcine) (Heparin Sodium,Porcine 5,000 Unit/Ml Vial) 5,000 unit SUBCUT Q12H [facility] Lactated Ringer's (Lr) 1,000 mls @ 80 mls/hr IVCONT .[id number] [facility] Last Admin: 04/08/24 02:30 Dose: 80 mls/hr Documented By: GEORGIE Loratadine (Loratadine 10 Mg Tablet) 10 mg PO DAILY PRN PRN Reason: Allergy Symptoms Losartan Potassium (Losartan Potassium 25 Mg Tablet) 25 mg PO DAILY [facility]; Protocol Magnesium Hydroxide (Milk Of Magnesia 30 Ml Oral.Susp) 30 ml PO DAILY PRN PRN Reason: Constipation Melatonin (Melatonin 3 Mg Tablet) 6 mg PO BEDTIME PRN PRN Reason: Insomnia Morphine Sulfate (Morphine Sulfate 2 Mg/Ml Cartridge) 2 mg IVPUSH Q3H PRN; Protocol PRN Reason: Pain, Severe (Pain Scale 7-10) Last Admin: 04/08/24 06:29 Dose: 2 mg Documented By: GEORGIE Omeprazole (Omeprazole 20 Mg Capsule.Dr) 20 mg PO DAILY@0630 [facility] Last Admin: 04/08/24 05:59 Dose: 20 mg Documented By: GEORGIE Sodium Chloride (0.9 % Sodium Chloride Flush 3 Ml Syringe) 3 ml IVFLUSH QSHIFT [facility] Last Admin: 04/08/24 07:15 Dose: Not Given Documented By: JLUIS Non-Admin Reason: IV Running Zolpidem Tartrate (Zolpidem Tartrate 5 Mg Tablet) 5 mg PO BEDTIME PRN PRN Reason: Sleep Labs 04/07/24 10:35 04/07/24 10:35 Labs: Laboratory Results - last 24 hr 04/07/24 10:35 MCV 84.4 MCH 28.1 MCHC 33.3 RDW 13.4 Plt Count 342 MPV 8.8 L Immature Gran % (Auto) 0.4 Neut % (Auto) 69.9 Lymph % (Auto) 19.8 L [place] % (Auto) 9.1 Eos % (Auto) 0.4 Baso % (Auto) 0.4 Lymph # (Auto) 2.2 [place] # (Auto) 1.0 Eos # (Auto) 0.1 Baso # (Auto) 0.0 Abs Immat Gran (auto) 0.04 H Absolute Neuts (auto) 7.9 Absolute Nucleated RBC 0.000 Nucleated RBC % (auto) 0.0 Anion Gap 11 L Estim Creat Clear Calc 57.8 Estimated GFR > 60 Random Glucose 118 H Calcium 8.8 D Total Bilirubin 0.6 AST 17 ALT 15 Alkaline Phosphatase 68 Total Protein 7.9 Albumin 4.0 Urine Color Yellow Urine Appearance Clear Urine pH 5.5 Ur Specific [place] 1.015 Urine Protein Negative Urine Glucose (UA) Negative Urine Ketones Negative Urine Blood Negative Urine Nitrite Negative Ur Leukocyte Esterase Small (1+) H Urine RBC 0-2 Urine WBC 6-10 H Ur Squamous Epith Cells 3-5 Urine Bacteria None Seen Hyaline Casts 0-2 Procedures Date of Service Date of Service: 04/08/24 Progress Note: A&P Assessment and plan (1) Acute diverticulitis: Status: Acute Assessment and Plan: With what appears to be an intramural abscess, distal sigmoid WBC still the same Abdomen is soft and benign She does have recurrent episodes with persistent symptoms the past month Continue IV antibiotics for now but may require resection Okay to have sips of clears Non toxic looking Time Spent With Patient Time: Total time managing care of this patient today ____ minutes. Quality Stroke Does the patient have a stroke diagnosis?: No VTE Prior VTE?: No VTE Risk Level:: Medical - moderate - high VTE Device Contraindication: N/A - Device Ordered VTE Drug Contraindication: N/A - Med Ordered
[2024-04-08] MEDS: Heparin Sodium,Porcine 5,000 UNIT/ML VIAL 5000 UNIT SUBCUT ×2 (09:25→21:37)
[2024-04-08] MEDS: levoFLOXacin/D5W 750 MG/150 ML PIGGYBACK 100 MG IV (09:25)
[2024-04-08] MEDS: metroNIDAZOLE/NS 500 MG/100 ML PIGGYBACK 100 MG IV ×2 (11:08→18:35)
--- NOTE | 2024-04-08 11:24 | HO.PM.IMCN ---
History of Present Illness Data of Consult Service Date: 04/08/24 Primary Care Provider: Martín Pittman MD [facility] Reason for consult: Medical Management Patient is a 73-year-old Israeli speaking female with a PMH significant for HTN, Arthritis, ascending aortic dilation, hx of diverticulitis, and GERD who was admitted to the hospital under general surgery services for acute diverticulitis with intramural abscess. Current plan is to treat with IV antibiotics as she is not a candidate for IR drainage due to intramural nature of the abscess. Hospitalist consult for medical management. Manager Winter services utilized. Patient seen and evaluated at bedside where she is resting comfortably in bed. Reports pain is well managed with current analgesics regimen. Has experienced some nausea and vomiting, with last episode of vomiting a few minutes prior. No diarrhea. Patient reports last bowel movement 4 days prior on Friday, though he is passing gas. Had low-grade fever of 100.0 last night. Otherwise denies any acute medical complaints, no chest pain/pressure, palpitation. Denies shortness or breath or difficulty breathing. Review of Systems Review of Systems: Negative except for that which is stated in the [facility] Medical History Acute diverticulitis Left hand pain Hospital discharge follow-up Hypertension Syncope and collapse Right knee pain Tendonitis Arthritis Family History Mother Alzheimer disease Hypertension Dementia Father Hypertension Surgical History Status post hardware removal Hx of colonoscopy History of hand surgery Social History Household Members: None Housing: House Do you presently have visiting nurse or other home services: Yes Alcohol intake: never Comment: pt refused bed alarm Patient Tobacco Use Status: Never used Tobacco Smoked in Last 30 Days: No e-Cigarette/Vaping Use: Never Used Use of substances other than those prescribed or required for medical reasons: No Currently Displaying Signs/Symptoms of Drug Intoxication Withdrawal: No Have you been hit, kicked, punched, or otherwise hurt by someone within the past year? If so, by whom?: No Do you feel safe in your current relationship?: No Is there a partner from a previous relationship who is making you feel unsafe now?: No Are you made to feel afraid or neglected: No Advance Directives: No Advance Directives Information Provided: Yes Do you have a plan to hurt others: No Plan Recently lost weight without trying: Yes How much weight loss: 2-13 pounds Eating poorly because of decreased appetite: Yes Nutrition screen score: 4 Nutrition Risks: Poor intake 0-25% >4 days Patient : No : No Poor oral hygiene: No service: No Current occupational status: retired Current occupation: rt handed Meds Allergies Allergy/AdvReac Type Severity Reaction Status Date / Time No Known Allergies Allergy Verified 04/07/24 10:24 Active Medications: Current Medications Acetaminophen (Acetaminophen 325 Mg Tablet) 650 mg PO Q6H PRN PRN Reason: Pain, Mild (Pain Scale 1-3), fever or headache Last Admin: 04/08/24 00:18 Dose: 650 mg Calcium Carbonate (Calcium Carbonate 750 Mg Tab.Chew) 750 mg PO Q4H PRN PRN Reason: Heartburn Heparin Sodium (Porcine) (Heparin Sodium,Porcine 5,000 Unit/Ml Vial) 5,000 unit SUBCUT Q12H [facility] Last Admin: 04/08/24 09:25 Dose: 5,000 unit Lactated Ringer's (Lr) 1,000 mls @ 80 mls/hr IVCONT .[id number] [facility] Last Admin: 04/08/24 02:30 Dose: 80 mls/hr Levofloxacin (Levaquin) 750 mg in 150 mls @ 100 mls/hr IV Q24H [facility] Last Infusion: 04/08/24 11:09 Dose: Infused Metronidazole (Flagyl) 500 mg in 100 mls @ 100 mls/hr IV Q8H [facility] Last Admin: 04/08/24 11:08 Dose: 100 mls/hr Loratadine (Loratadine 10 Mg Tablet) 10 mg PO DAILY PRN PRN Reason: Allergy Symptoms Losartan Potassium (Losartan Potassium 25 Mg Tablet) 25 mg PO BEDTIME [facility]; Protocol Magnesium Hydroxide (Milk Of Magnesia 30 Ml Oral.Susp) 30 ml PO DAILY PRN PRN Reason: Constipation Melatonin (Melatonin 3 Mg Tablet) 6 mg PO BEDTIME PRN PRN Reason: Insomnia Morphine Sulfate (Morphine Sulfate 2 Mg/Ml Cartridge) 2 mg IVPUSH Q3H PRN; Protocol PRN Reason: Pain, Severe (Pain Scale 7-10) Last Admin: 04/08/24 06:29 Dose: 2 mg Omeprazole (Omeprazole 20 Mg Capsule.Dr) 20 mg PO DAILY@0630 [facility] Last Admin: 04/08/24 05:59 Dose: 20 mg Ondansetron HCl (Ondansetron Hcl 4 Mg/2 Ml Vial) 4 mg IVPUSH Q6H PRN PRN Reason: Nausea and Vomiting Sodium Chloride (0.9 % Sodium Chloride Flush 3 Ml Syringe) 3 ml IVFLUSH QSHIFT [facility] Last Admin: 04/08/24 07:15 Dose: Not Given Zolpidem Tartrate (Zolpidem Tartrate 5 Mg Tablet) 5 mg PO BEDTIME PRN PRN Reason: Sleep Home Medications ?Medication ?Instructions ?Recorded ?Confirmed ?Last Taken ?Type loratadine 10 mg tablet 10 mg PO DAILY PRN Allergy Symptoms 03/26/24 04/07/24 Unknown History zolpidem 10 mg tablet 10 mg PO BEDTIME PRN Sleep 03/26/24 04/07/24 Unknown History amoxicillin 875 mg-potassium 1 tab PO BID 04/07/24 04/07/24 Unknown History clavulanate 125 mg tablet Physical Exam Vital Signs and Narrative: Vital Signs: Last Vital Signs Temp 97.3 F 04/08/24 07:20 Pulse 81 04/08/24 07:20 Resp 18 04/08/24 07:20 BP 112/64 04/08/24 07:20 Pulse Ox 96 04/08/24 07:20 O2 Del Method Room Air 04/08/24 07:20 BMI result Body Mass Index 31.4 General: AOx3, no acute distress Resp: CTA bilaterally CVS: S1, S2, RRR GI: +BS, no distention, left-sided abd tenderness. Skin: Warm, dry Neuro: Cranial nerves II-XII grossly intact bilaterally. Motor grossly intact bilaterally Extremities: No edema Psych: Appropriate affect Results Labs 04/07/24 10:35 04/07/24 10:35 Imaging Radiologist's Impressions: Impressions Abdomen/Pelvis CT 04/07/24 11:16 IMPRESSION: 2 cm intramural phlegmon/abscess right inferior wall, sigmoid colon. Regional ileus.. Fleischner guidelines were followed. Electronically signed by: Domingo Ibarra MD 04/07/2024 12:12 PM [facility] Assessment and Plan (1) Intra-abdominal abscess: Status: Acute (2) Acute diverticulitis: Status: Acute Plan Patient is a 73-year-old Israeli speaking female with a PMH significant for HTN, Arthritis, ascending aortic dilation, hx of diverticulitis, and GERD who was admitted to the hospital under general surgery services for acute diverticulitis with intramural abscess. Current plan is to treat with IV antibiotics as she is not a candidate for IR drainage due to intramural nature of the abscess. Hospitalist consult for medical management. Acute complicated diverticulitis with intramural abscess Currently receiving IV antibiotics with surgical resection deferred for now Pain well-controlled with current analgesic regimen Plan as per General surgery HTN BP well-controlled Continue losartan Mild ascending aortic dilation Measures 4.0 cm Likely secondary to HTN, Treat as above Follows with cardiology GERD Continue PPI Medication reconciliation complete. Will sign off for now. Thank you for allowing us to participate in the care of this patient. Please re-consult if any acute issue or need arises.
[2024-04-08] MEDS: ondansetron HCL 4 MG/2 ML VIAL IVPUSH (11:28)
--- NOTE | 2024-04-08 15:38 | PM.EVENT ---
Event Note Date of Service: 04/08/24 Event Note: Seen on afternoon rounds Says she feels ?okay? No severe pain at this time Abdomen is soft, some tenderness on the lower abdomen with no rebound or guarding No fever Keep on sips of clears for now, ice chips Now on Levaquin and Flagyl Time Spent With Patient Time: Total time managing care of this patient today ____ minutes.
--- NOTE | 2024-04-08 16:15 | MHC.CM.PN ---
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
[2024-04-08] MEDS: Losartan Potassium 25 MG TABLET PO (19:43)
[2024-04-08] MEDS: 0.9 % Sodium Chloride Flush 3 ML SYRINGE IVFLUSH (19:46)
[2024-04-09] VITALS (8 sets, daily range): BP systolic 115–136; BP diastolic 62–77; PULSE 70–77; RESP 14–18; TEMP 36.1–36.9; O2SAT 97–99
[2024-04-09] MEDS: metroNIDAZOLE/NS 500 MG/100 ML PIGGYBACK 100 MG IV ×3 (04:36→18:02)
[2024-04-09] MEDS: Omeprazole 20 MG CAPSULE.DR PO (06:35)
--- NOTE | 2024-04-09 09:00 | PM.PNGS ---
Subjective Subjective Date of Service: 04/09/24 Interval history: Feeling much better Abdominal much improved, although still present Passing flatus Says she is hungry Physical Exam Vital Signs: Vital Signs: Last Vital Signs Temp 97.4 F 04/09/24 07:47 Pulse 77 04/09/24 07:47 Resp 14 04/09/24 07:47 BP 122/69 04/09/24 07:47 Pulse Ox 98 04/09/24 07:47 O2 Del Method Room Air 04/09/24 07:47 BMI result Body Mass Index 31.4 Const: General: comfortable and no acute distress Resp: Effort & Inspection: normal respiratory effort Cardio: Rate: regular rate GI: Palpation (GI): Soft to palpation, not firm, Tenderness to palpation present (GI) (Mild tenderness lower) and no guarding Objective Data Active Medications Acetaminophen (Acetaminophen 325 Mg Tablet) 650 mg PO Q6H PRN PRN Reason: Pain, Mild (Pain Scale 1-3), fever or headache Last Admin: 04/08/24 19:43 Dose: 650 mg Documented By: KWESI Calcium Carbonate (Calcium Carbonate 750 Mg Tab.Chew) 750 mg PO Q4H PRN PRN Reason: Heartburn Heparin Sodium (Porcine) (Heparin Sodium,Porcine 5,000 Unit/Ml Vial) 5,000 unit SUBCUT Q12H [facility] Last Admin: 04/08/24 21:37 Dose: 5,000 unit Documented By: KWESI Lactated Ringer's (Lr) 1,000 mls @ 80 mls/hr IVCONT .[id number] [facility] Last Admin: 04/09/24 05:22 Dose: Not Given Documented By: PEDRO Non-Admin Reason: IV Running Levofloxacin (Levaquin) 750 mg in 150 mls @ 100 mls/hr IV Q24H [facility] Last Infusion: 04/08/24 11:09 Dose: Infused Documented By: JLUIS Metronidazole (Flagyl) 500 mg in 100 mls @ 100 mls/hr IV Q8H [facility] Last Infusion: 04/09/24 05:41 Dose: Infused Documented By: PEDRO Loratadine (Loratadine 10 Mg Tablet) 10 mg PO DAILY PRN PRN Reason: Allergy Symptoms Losartan Potassium (Losartan Potassium 25 Mg Tablet) 25 mg PO BEDTIME [facility]; Protocol Last Admin: 04/08/24 19:43 Dose: 25 mg Documented By: KWESI Magnesium Hydroxide (Milk Of Magnesia 30 Ml Oral.Susp) 30 ml PO DAILY PRN PRN Reason: Constipation Melatonin (Melatonin 3 Mg Tablet) 6 mg PO BEDTIME PRN PRN Reason: Insomnia Morphine Sulfate (Morphine Sulfate 2 Mg/Ml Cartridge) 2 mg IVPUSH Q3H PRN; Protocol PRN Reason: Pain, Severe (Pain Scale 7-10) Last Admin: 04/08/24 06:29 Dose: 2 mg Documented By: GEORGIE Omeprazole (Omeprazole 20 Mg Capsule.) 20 mg PO DAILY@0630 [facility] Last Admin: 04/09/24 06:35 Dose: 20 mg Documented By: PEDRO Ondansetron HCl (Ondansetron Hcl 4 Mg/2 Ml Vial) 4 mg IVPUSH Q6H PRN PRN Reason: Nausea and Vomiting Last Admin: 04/08/24 11:28 Dose: 4 mg Documented By: JLUIS Sodium Chloride (0.9 % Sodium Chloride Flush 3 Ml Syringe) 3 ml IVFLUSH [facility] Last Admin: 04/08/24 19:46 Dose: 3 ml Documented By: KWESI Zolpidem Tartrate (Zolpidem Tartrate 5 Mg Tablet) 5 mg PO BEDTIME PRN PRN Reason: Sleep Labs 04/07/24 10:35 04/07/24 10:35 Microbiology Microbiology Results: Microbiology 04/07/24 Unknown Urine Culture - Final Urine clean catch - Clean Catch Midstream No growth. Procedures Date of Service Date of Service: 04/09/24 Progress Note: A&P Assessment and plan (1) Acute diverticulitis: Status: Acute Assessment and Plan: With intramural abscess Clinically much improved We will start on clear liquids Continue antibiotics - switched to Levaquin and Flagyl She has had multiple episodes of acute diverticulitis the past year She actually was just recently discharged from the hospital I therefore explained to her the option of proceeding with sigmoid resection in view of multiple episodes, with an intramural abscess I explained the technique of hand assisted laparoscopic sigmoid resection, possible open, possible stoma I explained the risks of bleeding, infections, bowel injury, anastomotic leak, blood clots, pneumonia, MD, as well as the benefits and alternatives She says she is going to think about it Most likely will be here for the weekend for IV antibiotics Time Spent With Patient Time: Total time managing care of this patient today ____ minutes. Quality Stroke Does the patient have a stroke diagnosis?: No VTE Prior VTE?: No VTE Risk Level:: Medical - moderate - high VTE Device Contraindication: N/A - Device Ordered VTE Drug Contraindication: N/A - Med Ordered
[2024-04-09] MEDS: levoFLOXacin/D5W 750 MG/150 ML PIGGYBACK 100 MG IV (09:12)
[2024-04-09] MEDS: Heparin Sodium,Porcine 5,000 UNIT/ML VIAL 5000 UNIT SUBCUT ×3 (09:13→20:15)
[2024-04-09] MEDS: Lactated Ringers 1,000 ML 80 ML IVCONT (09:13)
--- NOTE | 2024-04-09 09:41 | MHC.CM.PN ---
P[T LIVES ALONE HAS A F[employer]ER[employer] F[employer]RICATOR AND RN VISIT FROM [facility] PT HAS OWN RIDE HOME
[2024-04-09] MEDS: Losartan Potassium 25 MG TABLET PO (20:10)
[2024-04-09] MEDS: Acetaminophen 325 MG TABLET 650 MG PO (22:43)
[2024-04-10] VITALS (7 sets, daily range): BP systolic 121–139; BP diastolic 73–78; PULSE 68–80; RESP 14–18; TEMP 36.1–36.7; O2SAT 96–98
[2024-04-10] MEDS: 0.9 % Sodium Chloride Flush 3 ML SYRINGE IVFLUSH (00:57)
[2024-04-10] MEDS: Lactated Ringers 1,000 ML 80 ML IVCONT ×2 (00:57→14:32)
[2024-04-10] MEDS: metroNIDAZOLE/NS 500 MG/100 ML PIGGYBACK 100 MG IV ×3 (03:10→17:56)
[2024-04-10] MEDS: Omeprazole 20 MG CAPSULE.DR PO (05:47)
[2024-04-10] MEDS: levoFLOXacin/D5W 750 MG/150 ML PIGGYBACK 100 MG IV (08:11)
[2024-04-10] MEDS: ondansetron HCL 4 MG/2 ML VIAL IVPUSH (09:13)
--- NOTE | 2024-04-10 09:49 | PM.PNGS ---
Subjective Subjective Date of Service: 04/10/24 Interval history: Patient states her abdominal symptoms have markedly improved. She is currently on liquid diet and does not wished to have solid food yet. She has been up out of bed/ambulating. Physical Exam Vital Signs: Vital Signs: Last Vital Signs Temp 97 F 04/10/24 07:48 Pulse 74 04/10/24 07:48 Resp 16 04/10/24 07:48 BP 131/75 04/10/24 07:48 Pulse Ox 97 04/10/24 07:48 O2 Del Method Room Air 04/10/24 07:48 BMI result Body Mass Index 31.4 GI: Other: Abdomen moderately corpulent. Mild left lower quadrant tenderness but without any evidence of guarding, rebound, or rigidity. Objective Data Active Medications Acetaminophen (Acetaminophen 325 Mg Tablet) 650 mg PO Q6H PRN PRN Reason: Pain, Mild (Pain Scale 1-3), fever or headache Last Admin: 04/09/24 22:43 Dose: 650 mg Documented By: MON[place]NA Calcium Carbonate (Calcium Carbonate 750 Mg Tab.Chew) 750 mg PO Q4H PRN PRN Reason: Heartburn Heparin Sodium (Porcine) (Heparin Sodium,Porcine 5,000 Unit/Ml Vial) 5,000 unit SUBCUT Q12H ON LICENSE OF [facility] Last Admin: 04/09/24 20:15 Dose: 5,000 unit Documented By: CHRISTIANO Lactated Ringer's (Lr) 1,000 mls @ 80 mls/hr IVCONT .[id number] ON LICENSE OF [facility] Last Admin: 04/10/24 03:11 Dose: Not Given Documented By: MON[place]NA Non-Admin Reason: IV Running Levofloxacin (Levaquin) 750 mg in 150 mls @ 100 mls/hr IV Q24H [facility] OF [facility] Last Admin: 04/10/24 08:11 Dose: 100 mls/hr Documented By: CONOR Metronidazole (Flagyl) 500 mg in 100 mls @ 100 mls/hr IV Q8H ON LICENSE OF [facility] Last Infusion: 04/10/24 04:11 Dose: Infused Documented By: MONTANA Loratadine (Loratadine 10 Mg Tablet) 10 mg PO DAILY PRN PRN Reason: Allergy Symptoms Losartan Potassium (Losartan Potassium 25 Mg Tablet) 25 mg PO BEDTIME [facility]; Protocol Last Admin: 04/09/24 20:10 Dose: 25 mg Documented By: CHRISTIANO Magnesium Hydroxide (Milk Of Magnesia 30 Ml Oral.Susp) 30 ml PO DAILY PRN PRN Reason: Constipation Melatonin (Melatonin 3 Mg Tablet) 6 mg PO BEDTIME PRN PRN Reason: Insomnia Morphine Sulfate (Morphine Sulfate 2 Mg/Ml Cartridge) 2 mg IVPUSH Q3H PRN; Protocol PRN Reason: Pain, Severe (Pain Scale 7-10) Last Admin: 04/08/24 06:29 Dose: 2 mg Documented By: GEORGIE Omeprazole (Omeprazole 20 Mg Capsule.) 20 mg PO DAILY@0630 [facility] LICENSE OF [facility] Last Admin: 04/10/24 05:47 Dose: 20 mg Documented By: MON[place]NA Ondansetron HCl (Ondansetron Hcl 4 Mg/2 Ml Vial) 4 mg IVPUSH Q6H PRN PRN Reason: Nausea and Vomiting Last Admin: 04/10/24 09:13 Dose: 4 mg Documented By: CONOR Sodium Chloride (0.9 % Sodium Chloride Flush 3 Ml Syringe) 3 ml IVFLUSH [facility] Last Admin: 04/10/24 08:17 Dose: Not Given Documented By: CONOR Non-Admin Reason: IV Running Zolpidem Tartrate (Zolpidem Tartrate 5 Mg Tablet) 5 mg PO BEDTIME PRN PRN Reason: Sleep Labs 04/07/24 10:35 04/07/24 10:35 Procedures Date of Service Date of Service: 04/10/24 Progress Note: A&P Assessment and plan (1) Acute diverticulitis: Status: Acute Plan Continue current plan; IV antibiotics, liquid diet, encourage out of bed, incentive spirometry. Patient tentatively scheduled for surgery next week with Dr. Cifuentes. Time Spent With Patient Time: Total time managing care of this patient today ____ minutes. Quality Stroke Does the patient have a stroke diagnosis?: No VTE Prior VTE?: No VTE Risk Level:: Medical - moderate - high VTE Device Contraindication: N/A - Device Ordered VTE Drug Contraindication: N/A - Med Ordered
[2024-04-10] MEDS: Milk of Magnesia 30 ML ORAL.SUSP PO (17:54)
[2024-04-10] MEDS: Losartan Potassium 25 MG TABLET PO (20:15)
[2024-04-10] MEDS: Heparin Sodium,Porcine 5,000 UNIT/ML VIAL 5000 UNIT SUBCUT (20:19)
[2024-04-11] MEDS: metroNIDAZOLE/NS 500 MG/100 ML PIGGYBACK 100 MG IV ×3 (02:31→18:11)
[2024-04-11] MEDS: Lactated Ringers 1,000 ML 80 ML IVCONT (02:34)
[2024-04-11 03:55] VITALS: BP 133/78; PULSE 77; RESP 16; TEMP 36.7; O2SAT 97
[2024-04-11] MEDS: Omeprazole 20 MG CAPSULE.DR PO (05:37)
[2024-04-11] MEDS: Acetaminophen 325 MG TABLET 650 MG PO (05:40)
[2024-04-11 08:00] VITALS: BP 130/62; PULSE 71; RESP 14; TEMP 36.1; O2SAT 98
[2024-04-11] MEDS: Heparin Sodium,Porcine 5,000 UNIT/ML VIAL 5000 UNIT SUBCUT ×2 (08:41→21:11)
[2024-04-11] MEDS: 0.9 % Sodium Chloride Flush 3 ML SYRINGE IVFLUSH ×3 (08:42→23:44)
[2024-04-11] MEDS: levoFLOXacin/D5W 750 MG/150 ML PIGGYBACK 100 MG IV (08:42)
[2024-04-11 11:46] VITALS: BP 169/85; PULSE 71; RESP 16; TEMP 36.3; O2SAT 99
[2024-04-11 15:25] VITALS: BP 137/66; PULSE 80; RESP 14; TEMP 36.2; O2SAT 98
--- NOTE | 2024-04-11 15:41 | P.PNGS_ITS ---
Subjective Subjective Date of Service: 04/11/24 Interval history: Patient was evaluated with her . She is doing quite well. She is tolerating a solid diet. He is having bowel movements. Her abdominal symptoms and nearly resolved. Physical Exam 2 Vital Signs: Vital Signs: Last Vital Signs Temp 97.1 F 04/11/24 15:25 Pulse 80 04/11/24 15:25 Resp 14 04/11/24 15:25 BP 137/66 04/11/24 15:25 Pulse Ox 98 04/11/24 15:25 O2 Del Method Room Air 04/11/24 15:25 BMI result Body Mass Index 31.4 GI: Other: Abdomen Sidell, soft, benign Objective Data Active Medications Acetaminophen (Acetaminophen 325 Mg Tablet) 650 mg PO Q6H PRN PRN Reason: Pain, Mild (Pain Scale 1-3), fever or headache Last Admin: 04/11/24 05:40 Dose: 650 mg Documented By: CATHI Calcium Carbonate (Calcium Carbonate 750 Mg Tab.Chew) 750 mg PO Q4H PRN PRN Reason: Heartburn Heparin Sodium (Porcine) (Heparin Sodium,Porcine 5,000 Unit/Ml Vial) 5,000 unit SUBCUT Q12H [facility] Last Admin: 04/11/24 08:41 Dose: 5,000 unit Documented By: ISA Levofloxacin (Levaquin) 750 mg in 150 mls @ 100 mls/hr IV Q24H [facility] Last Infusion: 04/11/24 10:12 Dose: Infused Documented By: ISA Metronidazole (Flagyl) 500 mg in 100 mls @ 100 mls/hr IV Q8H [facility] Last Infusion: 04/11/24 11:38 Dose: Infused Documented By: ISA Loratadine (Loratadine 10 Mg Tablet) 10 mg PO DAILY PRN PRN Reason: Allergy Symptoms Losartan Potassium (Losartan Potassium 25 Mg Tablet) 25 mg PO BEDTIME [facility]; Protocol Last Admin: 04/10/24 20:15 Dose: 25 mg Documented By: CATHI Magnesium Hydroxide (Milk Of Magnesia 30 Ml Oral.Susp) 30 ml PO DAILY PRN PRN Reason: Constipation Last Admin: 04/10/24 17:54 Dose: 30 ml Documented By: CONOR Melatonin (Melatonin 3 Mg Tablet) 6 mg PO BEDTIME PRN PRN Reason: Insomnia Morphine Sulfate (Morphine Sulfate 2 Mg/Ml Cartridge) 2 mg IVPUSH Q3H PRN; Protocol PRN Reason: Pain, Severe (Pain Scale 7-10) Last Admin: 04/08/24 06:29 Dose: 2 mg Documented By: GEORGIE Omeprazole (Omeprazole 20 Mg Capsule.) 20 mg PO DAILY@0630 [facility] Last Admin: 04/11/24 05:37 Dose: 20 mg Documented By: CATHI Ondansetron HCl (Ondansetron Hcl 4 Mg/2 Ml Vial) 4 mg IVPUSH Q6H PRN PRN Reason: Nausea and Vomiting Last Admin: 04/10/24 09:13 Dose: 4 mg Documented By: CONOR Sodium Chloride (0.9 % Sodium Chloride Flush 3 Ml Syringe) 3 ml IVFLUSH QSHIFT [facility] Last Admin: 04/11/24 08:42 Dose: 3 ml Documented By: PENELOPEOINPriscila Zolpidem Tartrate (Zolpidem Tartrate 5 Mg Tablet) 5 mg PO BEDTIME PRN PRN Reason: Sleep Labs 04/07/24 10:35 04/07/24 10:35 Procedures Date of Service Date of Service: 04/11/24 Progress Note: A&P Assessment and plan (1) Acute diverticulitis: Status: Acute (2) Intra-abdominal abscess: Status: Acute Plan Current plan is the patient will be evaluated by Dr. Cifuentes and further discussion regarding surgery we will be undertaken by him. At present, patient was doing well. Continue current plan; IV antibiotics, serial exams Time Spent With Patient Time: Total time managing care of this patient today ____ minutes. Quality Stroke Does the patient have a stroke diagnosis?: No VTE Prior VTE?: No VTE Risk Level:: Medical - moderate - high VTE Device Contraindication: N/A - Device Ordered VTE Drug Contraindication: N/A - Med Ordered
[2024-04-11 19:12] VITALS: BP 142/76; PULSE 78; RESP 18; TEMP 36.3; O2SAT 97
[2024-04-11] MEDS: Losartan Potassium 25 MG TABLET PO (21:07)
[2024-04-12] VITALS: BP 112/61; PULSE 79; RESP 18; TEMP 36.3; O2SAT 99
[2024-04-12 03:19] VITALS: BP 117/65; PULSE 76; RESP 17; TEMP 36.2; O2SAT 99
[2024-04-12] MEDS: metroNIDAZOLE/NS 500 MG/100 ML PIGGYBACK 100 MG IV (03:52)
[2024-04-12] MEDS: Omeprazole 20 MG CAPSULE.DR PO (06:12)
--- NOTE | 2024-04-12 08:01 | P.PNGS_ITS ---
Subjective Subjective Date of Service: 04/12/24 Interval history: feels well denies pain tolerating diet passing flatus Physical Exam 2 Vital Signs: Vital Signs: Last Vital Signs Temp 97.2 F 04/12/24 03:19 Pulse 76 04/12/24 03:19 Resp 17 04/12/24 03:19 BP 117/65 04/12/24 03:19 Pulse Ox 99 04/12/24 03:19 O2 Del Method Room Air 04/12/24 03:19 BMI result Body Mass Index 31.4 Const: General: comfortable and no acute distress Resp: Effort & Inspection: normal respiratory effort Cardio: Rate: regular rate GI: Palpation (GI): Soft to palpation, not firm, nontender and no guarding Objective Data Active Medications Acetaminophen (Acetaminophen 325 Mg Tablet) 650 mg PO Q6H PRN PRN Reason: Pain, Mild (Pain Scale 1-3), fever or headache Last Admin: 04/11/24 05:40 Dose: 650 mg Documented By: CATHI Calcium Carbonate (Calcium Carbonate 750 Mg Tab.Chew) 750 mg PO Q4H PRN PRN Reason: Heartburn Heparin Sodium (Porcine) (Heparin Sodium,Porcine 5,000 Unit/Ml Vial) 5,000 unit SUBCUT Q12H [facility] Last Admin: 04/11/24 21:11 Dose: 5,000 unit Documented By: JALIL Levofloxacin (Levaquin) 750 mg in 150 mls @ 100 mls/hr IV Q24H [facility] Last Infusion: 04/11/24 10:12 Dose: Infused Documented By: ISA Metronidazole (Flagyl) 500 mg in 100 mls @ 100 mls/hr IV Q8H [facility] Last Infusion: 04/12/24 05:17 Dose: Infused Documented By: JALIL Loratadine (Loratadine 10 Mg Tablet) 10 mg PO DAILY PRN PRN Reason: Allergy Symptoms Losartan Potassium (Losartan Potassium 25 Mg Tablet) 25 mg PO BEDTIME [facility]; Protocol Last Admin: 04/11/24 21:07 Dose: 25 mg Documented By: JALIL Magnesium Hydroxide (Milk Of Magnesia 30 Ml Oral.Susp) 30 ml PO DAILY PRN PRN Reason: Constipation Last Admin: 04/10/24 17:54 Dose: 30 ml Documented By: CONOR Melatonin (Melatonin 3 Mg Tablet) 6 mg PO BEDTIME PRN PRN Reason: Insomnia Morphine Sulfate (Morphine Sulfate 2 Mg/Ml Cartridge) 2 mg IVPUSH Q3H PRN; Protocol PRN Reason: Pain, Severe (Pain Scale 7-10) Last Admin: 04/08/24 06:29 Dose: 2 mg Documented By: GEORGIE Omeprazole (Omeprazole 20 Mg Capsule.Dr) 20 mg PO DAILY@0630 [facility] Last Admin: 04/12/24 06:12 Dose: 20 mg Documented By: JALIL Ondansetron HCl (Ondansetron Hcl 4 Mg/2 Ml Vial) 4 mg IVPUSH Q6H PRN PRN Reason: Nausea and Vomiting Last Admin: 04/10/24 09:13 Dose: 4 mg Documented By: CONOR Sodium Chloride (0.9 % Sodium Chloride Flush 3 Ml Syringe) 3 ml IVFLUSH QSHIFT [facility] Last Admin: 04/11/24 23:44 Dose: 3 ml Documented By: JALIL Zolpidem Tartrate (Zolpidem Tartrate 5 Mg Tablet) 5 mg PO BEDTIME PRN PRN Reason: Sleep Labs 04/07/24 10:35 04/07/24 10:35 Procedures Date of Service Date of Service: 04/12/24 Progress Note: A&P Assessment and plan (1) Acute diverticulitis: Status: Acute Assessment and Plan: with intramural abscess clinically resolved no symptoms feels well abd soft no fever she now wants to be discharged she understands she will benefit from resection but does not want this now ok to dc home Time Spent With Patient Time: Total time managing care of this patient today ____ minutes. Quality Stroke Does the patient have a stroke diagnosis?: No VTE Prior VTE?: No VTE Risk Level:: Medical - moderate - high VTE Device Contraindication: N/A - Device Ordered VTE Drug Contraindication: N/A - Med Ordered
[2024-04-12 08:11] VITALS: BP 157/90; PULSE 69; RESP 18; TEMP 36.1; O2SAT 98
[2024-04-12] MEDS: levoFLOXacin/D5W 750 MG/150 ML PIGGYBACK 100 MG IV (08:37)
[2024-04-12] MEDS: 0.9 % Sodium Chloride Flush 3 ML SYRINGE IVFLUSH (08:37)
--- NOTE | 2024-04-12 08:56 | MHC.CM.PN ---
PT WILL DC HOME TODAY WITH RESUMPTION OF HER [employer] S/O TO TRANSPORT
--- NOTE | 2024-04-12 12:37 | PM.DS ---
DS: Providers Provider Date of Service: 04/12/24 Date of admission: 04/07/24 12:39 Date of discharge: 04/12/24 Primary care physician: Martín Pittman MD Attending physician on admission: Tim Cifuentes Consults: 04/08/24 11:14 Consult to Hospitalist Routine Comment: Consulting Provider: [facility] Reason For Exam: HTN Attending physician on discharge: Tim Cifuentes DS: Diagnosis Discharge Diagnosis (1) Acute diverticulitis: Status: Acute DS: Summary Hospital Course Hospital Course: HPI AT ADMISSION: Wendie Abdalla is a 73 year old female here in the ER for abdominal pain. I had seen her in the office earlier today because of abdominal pain a recent diagnosis of acute diverticulitis. She was admitted to hospital by the hospitalist service for uncomplicated diverticulitis of the sigmoid last March 21, 2024. She was discharged on 03/25/2024. She is scheduled to have colonoscopy next month. She however says that she has better only for about 4 days at home and she continued to have lower abdominal pain. She says this becomes so crampy and painful at times. She felt febrile yesterday. She went to the urgent care center and says she was given IV antibiotics and oral antibiotics and instructed to f/u with general surgery. She says she continues to have significant pain when she has cramping. She is passing flatus. She says she has had about 4 episodes of diverticulitis already and she had been admitted twice to the hospital the past year. Work up in the ED included labs and CT scan which showed mild leukocytosis of 11.2 and a small 2 cm intramural abscess. HOSPITAL COURSE: She was admitted to the surgical service for further treatment of the diverticulitis with intramural abscess. She was clinically appearing well with an overall benign abd exam without peritoneal signs. She was started on IV antibiotics and clear liquids. She is not a candidate for IR drainage because of the intramural in nature of the abscess. Hospitalist service was consulted for her medical comorbidities. She had slow improvement of her symptoms. She was switched to IV levaquin and flagyl as she had been previously treated with IV zosyn. Her diet was slowly advanced. On the day of discharge, she had no abdominal pain, was tolerating a solid diet, passing flatus and was hemodynamically stable with a benign abd exam. It had been discussed given her recurrent episodes to proceed with resection. She will follow up in the office with this. She was discharged to home on 04/12/24 in stable condition. She was discharged on a course of PO levaquin and flagyl. She is to follow up in the office in 1-2 weeks. Status at Discharge Functional status at discharge: independent ambulation Overall status at discharge: patient is back to baseline Time Attestation Discharge Coordination Time (in mins): 40 Quality: Safe Use of Opioids Does Pt have an Active Cancer Diagnosis on the Problem List?: No Quality: Stroke Does the patient have a stroke diagnosis?: No Physical Exam Vital Signs: Vital Signs: Last Vital Signs Temp 97.0 F 04/12/24 08:11 Pulse 69 04/12/24 08:11 Resp 18 04/12/24 08:11 BP 157/90 H 04/12/24 08:11 Pulse Ox 98 04/12/24 08:11 O2 Del Method Room Air 04/12/24 08:11 BMI result Body Mass Index 31.4 Const: General: comfortable, no acute distress and alert GI: Inspection: No distended Palpation (GI): Soft to palpation and nontender Discharge Plan Discharge Anticipated Discharge Date/Time: 04/12/24 10:04 Patient Disposition: Home, Self-Care Discharge Diagnosis: acute diverticulitis with abscess Referrals: Tim Cifuentes MD [Physician] - 2 Weeks Name,MD Martín [Primary Care Provider] - 1 Week Discharge Medications: New levofloxacin 500 mg tablet 500 mg PO DAILY 7 Days Qty: 7 0RF metronidazole 500 mg tablet 500 mg PO TID Qty: 21 0RF Continued zolpidem 10 mg tablet 10 mg PO BEDTIME PRN (Reason: Sleep) loratadine 10 mg tablet 10 mg PO DAILY PRN (Reason: Allergy Symptoms) omeprazole 20 mg capsule,delayed release(DR/EC) 20 mg PO DAILY Qty: 90 0RF losartan 25 mg tablet 25 mg PO DAILY Qty: 90 3RF Discontinued amoxicillin-pot clavulanate 875-125 mg tablet 1 tab PO BID Rx Instructions: End 04/10/24 Discharge Orders: Discharge Order (Routine); Ordered 04/12/24 Ordered By: Tim Cifuentes Diet: Advance to usual diet Activity on Discharge: As tolerated Stand Alone Forms: Patient Portal Discharge page Print Language: Tajik Care Plan Goals: return to baseline Health Concerns: recurrent diverticulitis Plan of Treatment: oral antibiotics elective resection Assessment: doing very well Discharge Date/Time: 04/12/24 11:30
== END 2024-04-12 11:30 | disposition home or self-care (01) | DRG 391 ==
LOC: HO.ED 12:21 → HO.EDOVER 12:46 → HO.S3 17:14
PROVIDERS: Admitting Provider Surgery; Emergency Provider Emergency Medicine; PCP Internal Medicine Geriatric Medicine; Visit Provider Surgery
DX: K57.20 Diverticulitis of large intestine with perforation and abscess without bleeding (principal); K65.1 Peritoneal abscess; I10 Essential (primary) hypertension; K21.9 Gastro-esophageal reflux disease without esophagitis; I77.819 Aortic ectasia, unspecified site; Z79.899 Other long term (current) drug therapy
CPT/HCPCS: 36415; 74177; 80053; 81001; 85025; 87086; 99202; 99285; J0131; J1644; J1836; J1956; J2270; J2405; J2543; J7120; Q9967

== ENCOUNTER → 2024-04-07 10:55 | Outpatient (BNV) | payer OTHER, SELFPAY | PROVIDERS: Admitting Provider Surgery; Emergency Provider Emergency Medicine; PCP Internal Medicine Geriatric Medicine; Visit Provider Radiology Diagnostic Radiology | DX: R10.9 Unspecified abdominal pain (principal) | CPT/HCPCS: 74177 ==

== ENCOUNTER → 2024-04-07 12:39 | Outpatient (BNV) | payer OTHER, SELFPAY | PROVIDERS: Admitting Provider Surgery; Emergency Provider Emergency Medicine; PCP Internal Medicine Geriatric Medicine; Visit Provider Student in an Organized Health Care Education/Training Program | DX: I10 Essential (primary) hypertension (principal); I77.810 Thoracic aortic ectasia; K21.9 Gastro-esophageal reflux disease without esophagitis; K65.1 Peritoneal abscess | CPT/HCPCS: 99222 ==

== ENCOUNTER → 2024-04-07 12:39 | Outpatient (BNV) | payer OTHER, SELFPAY | PROVIDERS: Admitting Provider Surgery; Emergency Provider Emergency Medicine; PCP Internal Medicine Geriatric Medicine; Visit Provider Surgery | DX: K57.92 Diverticulitis of intestine, part unspecified, without perforation or abscess without bleeding (principal) | CPT/HCPCS: 99222; 99232; 99239; 99499 ==

== ENCOUNTER 2024-04-29 10:38 | Outpatient (AMB) | payer OTHER, SELFPAY ==
--- NOTE | 2024-04-29 10:46 | A.OFFVIS_ITS ---
Vital Signs 04/29/24 10:54 Weight 150 lb BP 141/80 H Blood Pressure Location Rt brachial Position Sitting Pulse 86 Intake Visit Reasons: discuss surgery sigmoid resection Intake Note: Patient scheduled today's visit to discuss sigmoid resection surgery. Patient c/o: diverticulosis pain with several episodes that ended her admitted to hospital. Denies nausea, diarrhea, constipation. ABD CT: 04-07-2024. Financial Planning Adviser Required: Yes Accompanied by: Spouse Allergies No Known Allergies Allergy (Verified 04/29/24 10:56) Medication List - Last Reconciled 04/29/24 by Tim Cifuentes MD levofloxacin 500 mg PO DAILY 7 days loratadine 10 mg PO DAILY PRN losartan 25 mg PO DAILY metronidazole 500 mg PO TID omeprazole 20 mg PO DAILY zolpidem 10 mg PO BEDTIME PRN HPI HPI discuss surgery sigmoid resection: Details: [age] year old female here for follow-up for acute diverticulitis. I had admitted her to the hospital on April 07, 2024 because of abdominal pain. I had therefore sent her to the ED from the office because of this. Her CAT scan shows a small 2 cm intramural abscess. She otherwise has a benign exam. She had been discharged from the hospital a week prior for acute diverticulitis. She was kept in the hospital for about 5 days. She says she has had no problems since discharge. She has good oral intake. She denies any abdominal pain. She has good bowel movements. She says she feels well overall. [facility] Medical History (Updated 04/29/24 @ 11:12 by Tim Cifuentes MD) Diverticular disease Acute diverticulitis Left hand pain Hospital discharge follow-up Hypertension Syncope and collapse Right knee pain Tendonitis Arthritis Surgical History Status post hardware removal Hx of colonoscopy History of hand surgery Family History Mother Alzheimer disease Hypertension Dementia Father Hypertension Social History Household Members: None Housing: House Do you presently have visiting nurse or other home services: Yes Alcohol intake: never Comment: pt refused bed alarm Patient Tobacco Use Status: Never used Tobacco e-Cigarette/Vaping Use: Never Used service: No Current occupational status: retired Current occupation: rt handed Review of Systems Const Denies chills and Denies fever(s) Card Denies chest pain, Denies dyspnea and Denies dyspnea on exertion Resp Denies cough, Denies dyspnea and Denies dyspnea on exertion GI Denies hematochezia and Denies change in bowel habits Denies hematuria Musc Denies back pain and Denies limited range of motion Neuro Denies focal weakness and Denies convulsions Psych Denies depression and Denies mood swings Physical Exam Vital Signs: Last Vital Signs Pulse 86 04/29/24 10:54 BP 141/80 H 04/29/24 10:54 Const General: comfortable and no acute distress Resp Effort & Inspection: normal respiratory effort GI Palpation (GI): Soft to palpation, nontender and no guarding Assessment & Plan Assessment & Plan (1) Diverticular disease: Code(s): K57.90 - Diverticulosis of intestine, part unspecified, without perforation or abscess without bleeding Category: Medical Plan: She was admitted for acute diverticulitis with what appeared to be a small intramural abscess last 04/07/2024. She has been doing well since discharge. She denies any abdominal pain or tenderness She describes having 4 episodes in the past. However, review of her records show that she had been admitted on the last month for the 1st time I did explain to her the option of doing the sigmoid resection in view of the likelihood of recurrent episodes. I explained the technique of this procedure with laparoscopy. I reviewed the risks including but not limited to bleeding, infections, injury to other organs including bowel, urinary tract, anastomotic leak, blood clots, pneumonia, as well as the benefits and alternatives. I also explained to her what to expect postoperatively She says that she seems to be doing quite well and would like to think about that procedure. She is going away on a trip to [place] next week. I will see her again in the office next month to see how she is doing. Her was with her during the visit. Coding Level of Care Code Est Pt Level 4 (32955) Diagnoses Diverticular disease K57.90
[2024-04-29 10:54] VITALS: BP 141/80; PULSE 86
== END 2024-04-29 11:11 | disposition home or self-care (01) ==
PROVIDERS: PCP Internal Medicine Geriatric Medicine; Visit Provider Surgery
DX: K57.90 Diverticulosis of intestine, part unspecified, without perforation or abscess without bleeding (principal)
CPT/HCPCS: 99214

== ENCOUNTER → 2024-04-29 10:38 | Outpatient (BNVA) | payer OTHER, SELFPAY | PROVIDERS: PCP Internal Medicine Geriatric Medicine; Visit Provider Surgery | DX: K57.90 Diverticulosis of intestine, part unspecified, without perforation or abscess without bleeding (principal) | CPT/HCPCS: 99212 ==

== ENCOUNTER 2024-05-10 13:35 | Outpatient (REF) | payer OTHER, SELFPAY ==
[2024-05-11 14:33] LABS: HCV RNA PCR Qn <1.18 NOT DETECTED Log IU/mL (NOT DETECTED); HCV RNA PCR Qn <15 NOT DETECTED IU/mL (NOT DETECTED)
[2024-05-13 14:28] LABS: ~HepC Num1 0.72 S/CO (0.00-0.79); ~Hepatitis C Antibody Nonreactive (Nonreactive)
[2024-05-13 14:29] LABS: ~HepC Num1 0.61 S/CO (0.00-0.79); ~Hepatitis C Antibody Nonreactive (Nonreactive)
== END 2024-05-10 13:36 | disposition home or self-care (01) ==
LOC: HO.HHCL 13:35
PROVIDERS: Internal Medicine; Visit Provider Internal Medicine Geriatric Medicine
DX: Z11.59 Encounter for screening for other viral diseases (principal); R76.8 Other specified abnormal immunological findings in serum
CPT/HCPCS: 36415; 86803; 87522

== ENCOUNTER 2024-05-25 08:53 | Outpatient (REF) | payer OTHER, SELFPAY ==
--- NOTE | ~2024-05-25 | US_ITS ---
EXAMINATION: MM DIAGNOSTIC DIGITAL BREAST TOMOSYNTHESIS, RIGHT Limited right breast ultrasound. CLINICAL INFORMATION: New oval mass in the upper inner right breast. Patient has a family history of breast cancer including sister and maternal grandmother. COMPARISON: Mammography: Made with prior examinations. TECHNIQUE: Digital breast tomosynthesis is performed in both the craniocaudal and mediolateral oblique views along with computer-aided detection (CAD). Synthesized 2D images are generated from the tomosynthesis. Limited right breast ultrasound. FINDINGS: There are scattered areas of fibroglandular density (ACR BI-RADS breast composition Category b). Circumscribed oval mass in the upper inner breast persists on additional imaging projections and is new from priors. Suspicious calcifications or other abnormal findings. Targeted color Doppler ultrasound demonstrates a hypoechoic oval circumscribed solid mass versus complicated cyst at 1:00 5 cm from the nipple measuring 7 x 3 x 7 mm. This is a likely correlate for the oval mass seen on mammography. US/US breast RT limited mamm only IMPRESSION: New oval mass on mammogram with correlate of solid mass versus complicated cyst on ultrasound at 1:00. Recommend ultrasound guided core needle biopsy at this time for confirmation. The findings and recommendations were discussed with the patient the procedure will be scheduled. ASSESSMENT: BI-RADS BI-RADS 4 - Suspicious finding RECOMMENDATION: Biopsy recommended Results were provided to the patient at time of visit by the technologist. This patient's information was entered into a reminder system with a target due date for their next mammogram. Electronically signed by: Reina Rod DO 05/25/2024 10:30 AM ISAI
== END 2024-05-25 08:54 | disposition home or self-care (01) ==
LOC: HO.MAMMO 08:53
PROVIDERS: PCP Internal Medicine Geriatric Medicine; Visit Provider Internal Medicine Geriatric Medicine
DX: N63.12 Unspecified lump in the right breast, upper inner quadrant (principal)
CPT/HCPCS: 76642; 77061; 77065

== ENCOUNTER → 2024-05-25 09:15 | Outpatient (BNV) | payer OTHER, SELFPAY | PROVIDERS: PCP Internal Medicine Geriatric Medicine; Visit Provider Internal Medicine | DX: N63.12 Unspecified lump in the right breast, upper inner quadrant (principal) | CPT/HCPCS: 76642; 77065; G0279 ==

== ENCOUNTER 2024-06-02 12:43 | Outpatient (AMB) | payer OTHER, SELFPAY ==
--- NOTE | 2024-06-02 12:44 | A.OFFVIS_ITS ---
Vital Signs 06/02/24 12:45 Height 4 ft 11 in Weight 148 lb 8 oz BMI 30.0 Intake Visit Reasons: sigmoid resection discuss/(R) breast US Bx Intake Note: This patient presents to re-discuss sigmoid resection and right breast ultrasound guided biopsy. Pt c/o; no concerns. Business Instructor Required: Yes Business Instructor Language: Band Ripsaw Operator Services: Business Instructor Present Business Instructor Name: Claudia Information Interpreted: non-clinical & clinical Accompanied by: Spouse Allergies No Known Allergies Allergy (Verified 06/02/24 12:52) Medication List - Last Reconciled 06/02/24 by Tim Cifuentes MD amlodipine 5 mg PO DAILY levofloxacin 500 mg PO DAILY 7 days loratadine 10 mg PO DAILY PRN losartan 25 mg PO DAILY metronidazole 500 mg PO TID omeprazole 20 mg PO DAILY pantoprazole 20 mg PO DAILY zolpidem 10 mg PO BEDTIME PRN HPI HPI sigmoid resection discuss/(R) breast US Bx: Details: She is here for follow-up for sigmoid diverticulitis history. She says she has had no further episodes. She denies any abdominal pain. She has good oral intake. She has good bowel movements She also had a mammogram for screening done last March 2025 showing a mass on the right breast. She was brought in for diagnostic mammogram and ultrasound showing this hypoechoic oval circumscribed solid mass versus complicated cyst at the 1 o'clock position of the right breast up to 7 mm in widest dimension. An ultrasound biopsy had been recommended. She denies any palpable mass. She denies any family history of breast cancer. [facility] Medical History Breast mass, right Diverticular disease Acute diverticulitis Left hand pain Hospital discharge follow-up Hypertension Syncope and collapse Right knee pain Tendonitis Arthritis Surgical History Status post hardware removal Hx of colonoscopy History of hand surgery Family History Mother Alzheimer disease Hypertension Dementia Father Hypertension Social History Household Members: None Housing: House Do you presently have visiting nurse or other home services: Yes Alcohol intake: never Comment: pt refused bed alarm Patient Tobacco Use Status: Never used Tobacco e-Cigarette/Vaping Use: Never Used service: No Current occupational status: retired Current occupation: rt handed Review of Systems Const Denies chills and Denies fever(s) Card Denies chest pain, Denies dyspnea and Denies dyspnea on exertion Resp Denies cough, Denies dyspnea and Denies dyspnea on exertion GI Denies hematochezia and Denies change in bowel habits Denies hematuria Musc Denies back pain and Denies limited range of motion Neuro Denies focal weakness and Denies convulsions Psych Denies depression and Denies mood swings Physical Exam Vital Signs: BMI result Body Mass Index 30.0 Const General: comfortable and no acute distress Chest Other: No palpable breast masses, no axillary lymphadenopathy, no breast changes Resp Effort & Inspection: normal respiratory effort GI Palpation (GI): Soft to palpation, not firm, nontender and no guarding Assessment & Plan Assessment & Plan (1) Breast mass, right: Code(s): N63.10 - Unspecified lump in the right breast, unspecified quadrant Category: Medical Plan: She has this right breast mass seen on mammogram and ultrasound as described above. An ultrasound biopsy had been recommended by the radiologist. I explained to her the technique of this procedure. She understands the plan I will see her again in the office after ultrasound biopsy to discuss the path report. (2) Diverticular disease: Code(s): K57.90 - Diverticulosis of intestine, part unspecified, without perforation or abscess without bleeding Category: Medical Plan: She has had no further episodes since March,. I did offer her the option of sigmoid resection because of her multiple episodes in the past. However, we will rediscuss this wants she has the breast biopsy done. She was therefore come back to the office and review both her breast biopsy as well as her options for diverticular disease. Orders: Orders US breast ndl core biopsy RT Today N63.10 - Unspecified lump in the right breast, unspecified quadrant Coding Level of Care Code Est Pt Level 3 (76245) Diagnoses Breast mass, right N63.10 Diverticular disease K57.90
== END 2024-06-02 13:12 | disposition home or self-care (01) ==
PROVIDERS: PCP Internal Medicine Geriatric Medicine; Visit Provider Surgery
DX: N63.10 Unspecified lump in the right breast, unspecified quadrant (principal); K57.90 Diverticulosis of intestine, part unspecified, without perforation or abscess without bleeding
CPT/HCPCS: 99213

== ENCOUNTER → 2024-06-02 12:43 | Outpatient (BNVA) | payer OTHER, SELFPAY | PROVIDERS: PCP Internal Medicine Geriatric Medicine; Visit Provider Surgery | DX: N63.12 Unspecified lump in the right breast, upper inner quadrant (principal); K57.90 Diverticulosis of intestine, part unspecified, without perforation or abscess without bleeding | CPT/HCPCS: 99212 ==

== ENCOUNTER 2024-06-23 08:25 | Outpatient (REF) | payer OTHER, SELFPAY ==
--- NOTE | ~2024-06-23 | MM_ITS ---
PROCEDURE: ULTRASOUND-GUIDED RIGHT BREAST BIOPSY CLINICAL INFORMATION: New oval solid mass in the right breast at 1:00. Strong family history of breast cancer. COMPARISON: Comparison is made with available prior examinations. TECHNIQUE: The details of the procedure, as well as the risks, benefits, and alternatives to the procedure were explained to the patient in detail and all of her questions were answered, after which, written informed consent was obtained. PROCEDURE: Prior to the procedure, sonography revealed hypoechoic oval solid mass at 1:00. A time-out was performed, the lesion intended for biopsy was targeted and the skin of the right breast was then prepped and draped in the usual sterile fashion. Using sonographic guidance, sterile technique, and 1% lidocaine without epinephrine for local anesthesia, a total of 4 cores were obtained through the targeted area with a 14-gauge biopsy device. At the completion of tissue sampling, a single [coil metallic clip was deposited at the biopsy site. An appropriate sample was obtained. The postprocedure 2-view direct digital mammogram reveals satisfactory positioning of the biopsy clip. The patient tolerated the procedure well and, after assuring adequate hemostasis, was discharged in good condition after reviewing postbiopsy breast care instructions. Final pathology results are pending. MM/MM tomosynthesis diagnostic RT IMPRESSION: 1. Uncomplicated sonographically-guided core biopsy of the right breast. The 2-view direct digital postprocedure mammogram reveals satisfactory positioning of the biopsy clip. 2. Final pathology results are pending. A separate report with final recommendations will be issued once these results are made available. Electronically signed by: Reina Rod DO 06/23/2024 10:30 AM ISAI
--- OUTSIDE RECORDS SUMMARY | 2024-06-23 08:30 | XMS_ITS | Encounter Summary ---
Author Organization [employer] Address [address] [facility] 7[address] [place] [address] Care Team Providers Care Astronomy Professor Name Role Phone Name, Martín MARKS Primary Care Provider [phone] Reason for Visit * Reason Onset Date Comments Med Refill 07/22/2023 Encounter Details Date Type Department Care Team ([facility] st Contact Info) Description 07/22/2023 Telephone [facility] MEDICINE [address] [place], [place] [phone] Name, MD Martín [address] [place] [address] Med Refill Social History Tobacco Use Types Packs/Day Years Used Date Smoking Tobacco: Never Passive Smoke Exposure: Never Smokeless Tobacco: Never Alcohol Use Standard Drinks/Week Comments Defer 0 (1 standard drink = 0.6 oz pur e alcohol) Housing Stability Answer Date Recorded What is your housing situation today? I have solange kennedy 03/04/[address] you li ve. Do you have problems with any of the following? None of the above 03/04/2023 Food Insecurity Answer Date Recorded Within the past 12 months, y ou worried that your food would run out before you got money to buy more: Never True 03/04/2023 Within the past 12 months,th e food you bought just didn't last and you didn't have enough money to get more: Never True Transportation Answer Date Recorded In the past 12 months, has l ack of transportation kept you from medical appts, meetings, work or from getting things needed for daily living? No 03/04/2023 Utilities Answer Date Recorded In the past 12 months, has t he electric, gas, oil or water company threatened to shut off services in your home? No 03/04/2023 Depression Answer Date Recorded Patient Health Questionnaire-2 Score 0 07/22/2022 Comments Unknown Sex and Gender Information Value Date Recorded Sex Assigned at Female 03/18/2022 10:20 AM EDT Legal Sex Female 10:20 AM EDT Gender Identity Female 03/18/2022 10:20 AM EDT Sexual Orientation Don't know 03/18/2022 10 :20 AM EDT documented as of this encounter Miscellaneous Notes * Telephone Encounter - Geno Malave LPN - 07/22/2023 11:10 AM EST Medication pended to PCP. * Telephone Encounter - Jillian Mendoza - 07/22/2023 11:07 AM EST TC from pt requesting medication refill. Medications needing refill : zolpidem (Ambien) 10 MG tablet To be sent to: [facility]/pharmacy #[id number] [place] [address] documented in this encounter Plan of Treatment Upcoming Encounters Date Type Department Care Team (Late st Contact Info) Description 07/06/2024 3:00 PM EST Office Visit [facility] ADULT DENTAL [address] [place] [address] Erica, Kasia [address] [place] [address] 07/19/2024 4:00 PM EST Office Visit [facility] MEDICINE [address] [place] [address] Name, MD Martín [address] [place] [address] documented as of this encounter Visit Diagnoses Not on filedocumented in this encounter Care Teams Astronomy Professor Relationship Specialty Start Date End Date Name, MD Martín [address] [place] [address] PCP - General Family Medicine 07/18/15 documented as of this encounter
--- OUTSIDE RECORDS SUMMARY | 2024-06-23 08:30 | XMS_ITS | Encounter Summary ---
Author Organization [employer] Address [address] [facility] 7t [place] [address] Care Team Providers Care Financial Internship Name Role Phone Name, Martín MARKS Primary Care Provider [phone] Reason for Visit * Reason Comments Med Refill Encounter Details Date Type Department Care Team ([facility] st Contact Info) Description 05/24/2023 Refill [facility] MEDICINE [address] [place], [place] [phone] Name, MD Martín [address] [place] [address] Allergic rhinitis, unspecified seasonality, unspecified trigger Social History Tobacco Use Types Packs/Day Years [...] AM EDT documented as of this encounter Plan of Treatment Upcoming Encounters Date Type Department Care Team (Late st Contact Info) Description 07/06/2024 3:00 PM EST Office Visit [facility] ADULT DENTAL [address] [place] [address] Erica, Kasia [address] [place] [address] 07/19/2024 4:00 PM EST Office Visit [facility] MEDICINE [address] [place] [address] NameMartín MD [address] [place] [address] documented as of this encounter Visit Diagnoses Diagnosis Allergic rhinitis, unspecified seasonality, unspecified trigger documented in this encounter Care Teams Financial Internship Relationship Specialty Start Date End Date Martín Pittman MD [address] [place] [address] PCP - General Family Medicine 07/18/15 documented as of this encounter
--- OUTSIDE RECORDS SUMMARY | 2024-06-23 08:30 | XMS_ITS | Encounter Summary ---
Author Organization [employer] Address [address] [facility] 7t [place] [address] Care Team Providers Care Brake Engineer Name Role Phone Name, Martín MARKS Primary Care Provider [phone] Reason for Visit * Reason Onset Date Comments Med Refill 04/21/2023 Encounter Details Date Type Department Care Team ([facility] st Contact Info) Description 04/21/2023 Telephone [facility] MEDICINE [address] [place], [place] [phone] Name, MD Martín [address] [place] [address] Med Refill Social History Tobacco Use Types Packs/Day Years Used Date Smoking Tobacco: Never Passive Smoke Exposure: Never Smokeless Tobacco: Never Alcohol Use Standard Drinks/Week Comments Defer 0 (1 standard drink = 0.6 oz pur e alcohol) Depression Answer Date Recorded Patient Health Questionnaire-9 Score 22 04/06/2024 Patient Health Questionnaire-9 Score 22 04/06/2024 Last PHQ-9: Questionnaire Data Not on file 1 06/06/2023 Housing Stability Answer Date Recorded What is your housing situation today? I have solange kennedy 09/15/[address] you li ve. Do you have problems with any of the following? None of the above 09/15/2023 Food Insecurity Answer Date Recorded Within the past 12 months, y ou worried that your food would run out before you got money to buy more: Never True 09/15/2023 Within the past 12 months,th e food you bought just didn't last and you didn't have enough money to get more: Never True Transportation Answer Date Recorded In the past 12 months, has l ack of transportation kept you from medical appts, meetings, work or from getting things needed for daily living? No 09/15/2023 Utilities Answer Date Recorded In the past 12 months, has t he electric, gas, oil or water company threatened to shut off services in your home? No 09/15/2023 Depression Answer Date Recorded Patient Health Questionnaire-2 Score 6 04/06/2024 Comments Unknown Sex and Gender Information Value Date Recorded Sex Assigned at Female 03/18/2022 10:20 AM EDT Legal Sex Female 10:20 AM EDT Gender Identity Female 03/18/2022 10:20 AM EDT Sexual Orientation Don't know 03/18/2022 10 :20 AM EDT documented as of this encounter Miscellaneous Notes * Telephone Encounter - Geno Malave LPN - 04/21/2023 2:47 PM EST Medication pended to PCP. * Telephone Encounter - Juliette Chen - 04/21/2023 2:32 PM EST Tc from pt requesting a refill for zolpidem (Ambien) 10 MG tablet documented in this encounter Plan of Treatment Upcoming Encounters Date Type Department Care Team (Late st Contact Info) Description 07/06/2024 3:00 PM EST Office Visit [facility] ADULT DENTAL [address] [place] [address] Erica, Kasia [address] [place] [address] 07/19/2024 4:00 PM EST Office Visit [facility] MEDICINE [address] [place] [address] Martín Pittman MD [address] [place] [address] documented as of this encounter Visit Diagnoses Not on filedocumented in this encounter Care Teams Brake Engineer Relationship Specialty Start Date End Date NameMartín MD [address] [place] [address] PCP - General Family Medicine 07/18/15 documented as of this encounter
--- OUTSIDE RECORDS SUMMARY | 2024-06-23 08:30 | XMS_ITS | Encounter Summary ---
Author Organization [employer] Address [address] [facility] 7t [place] [address] Care Team Providers Care Ship Design Teacher Name Role Phone Name, Martín MARKS Primary Care Provider [phone] Reason for Visit * Reason Onset Date Comments Med Refill 10/21/2022 Encounter Details Date Type Department Care Team ([facility] Contact Info) Description 10/21/2022 Refill [facility] MEDICINE [address] [place], [place] [phone] Name, MD Martín [address] [place] [address] Insomnia, unspecified type Social History Tobacco Use Types Packs/Day Years Used Date Smoking Tobacco: Never Passive Smoke Exposure: Never Smokeless Tobacco: Never Alcohol Use Standard Drinks/Week Comments Defer 0 (1 standard drink = 0.6 oz pur e alcohol) Depression Answer Date Recorded Patient Health Questionnaire-2 Score 0 07/22/2022 Comments Unknown Sex and Gender Information Value Date Recorded Sex Assigned at Female 03/18/2022 10:20 AM EDT Legal Sex Female 10:20 AM EDT Gender Identity Female 03/18/2022 10:20 AM EDT Sexual Orientation Don't know 03/18/2022 10 :20 AM EDT documented as of this encounter Miscellaneous Notes * Telephone Encounter - Jillian Mendoza - 10/21/2022 3:46 PM EDT Tc from pt requesting med refill for medication zolpidem (Ambien) 10 MG tablet. documented in this encounter Plan of Treatment Upcoming Encounters Date Type Department Care Team ([facility] Contact Info) Description 07/06/2024 3:00 PM EST Office Visit [facility] ADULT DENTAL [address] [place], [place] [phone] Kasia Maldonado [address] [place] [address] 07/19/2024 4:00 PM EST Office Visit [facility] MEDICINE [address] [place] [address] Name, MD Martín [address] [place] [address] documented as of this encounter Visit Diagnoses Diagnosis Insomnia, unspecified type documented in this encounter Care Teams Ship Design Teacher Relationship Specialty Start Date End Date Name, MD Martín [address] [place] [address] PCP - General Family Medicine 07/18/15 documented as of this encounter
--- OUTSIDE RECORDS SUMMARY | 2024-06-23 08:30 | XMS_ITS | Encounter Summary ---
Author Organization [employer] Address [address] [facility] 7t [place] [address] Care Team Providers Care Shank Scourer Name Role Phone Name, Martín MARKS Primary Care Provider [phone] Reason for Visit * Reason Onset Date Comments Hospital Follow-up 04/12/2024 Encounter Details Date Type Department Care Team ([facility] st Contact Info) Description 04/12/2024 Telephone [facility] MEDICINE [address] [place], [place] [phone] Name, MD Martín [address] [place] [address] Hospital Follow-up Social History Tobacco Use Types Packs/Day Years [...] Patient Health Questionnaire-2 Score 6 04/06/2024 Comments No Sex and Gender Information Value Date Recorded Sex Assigned at Female 03/18/2022 10:20 AM EDT Legal Sex Female 10:20 AM EDT Gender Identity Female 03/18/2022 10:20 AM EDT Sexual Orientation Don't know 03/18/2022 10 :20 AM EDT documented as of this encounter Miscellaneous Notes * Telephone Encounter - Jillian Mendoza - 04/12/2024 2:16 PM EST Tc from pt requesting a HDF appt. Hospital: [facility] Date of admission: 04/07/24 Discharge date: 04/12/24 Diagnosed: intestinal infection *Send message to [place] Clinical Care Coordinators documented in this encounter Plan of Treatment Upcoming Encounters Date Type Department Care Team (Late st Contact Info) Description 07/06/2024 3:00 PM EST Office Visit [facility] ADULT DENTAL [address] [place] [address] Erica, Kasia [address] [place] [address] 07/19/2024 4:00 PM EST Office Visit [facility] MEDICINE [address] [place] [phone] NameMartín MD [address] [place] [address] documented as of this encounter Visit Diagnoses Not on filedocumented in this encounter Additional Health Concerns Assessment Noted Time PHQ-9 Depression Total Score: 22 024 11:54 AM EST documented as of this encounter Care Teams Shank Scourer Relationship Specialty Start Date End Date NameMartín MD [address] [place] [address] PCP - General Family Medicine 07/18/15 documented as of this encounter
--- OUTSIDE RECORDS SUMMARY | 2024-06-23 08:30 | XMS_ITS | Encounter Summary ---
Author Organization [facility] Address [address] [facility] 7t [place] [address] Care Team Providers Care Heel Seat Sander Name Role Phone Name, Martín MARKS Primary Care Provider [phone] Encounter Details Date Type Department Care Team (Latest Contact Info) Description 11/06/2020 Abstract [facility] CONVERSIONS Dental, Provider, DDS Social History Tobacco Use Types Packs/Day Years Used Date Smoking Tobacco: Never Assessed Comments Unknown Sex and Gender Information Value [...] Description 07/06/2024 3:00 PM EST Office Visit [facility] ADULT DENTAL [address] [place] [address] Erica Kasia [address] [place] [address] 07/19/2024 4:00 PM EST Office Visit [facility] MEDICINE [address] [place] [address] Name, MD Martín [address] [place] [address] documented as of this encounter Visit Diagnoses Not on filedocumented in this encounter Care Teams Heel Seat Sander Relationship Specialty Start Date End Date Martín Pittman MD [address] [place] [phone] PCP - General Family Medicine 07/18/15 documented as of this encounter
--- OUTSIDE RECORDS SUMMARY | 2024-06-23 08:30 | XMS_ITS | Encounter Summary ---
Author Organization [employer] Address 75 [facility] 7t [place] [address] Care Team Providers Care Brim Raiser Name Role Phone Name, Martín MARKS Primary Care Provider [phone] Encounter Details Date Type Department Care Team ([facility] st Contact Info) Description 05/25/2024 Telephone [facility] MEDICINE [address] [place], [place] [phone] Lupe Cosme, RN [address] [place], [place] [phone] Social History Tobacco Use Types Packs/Day Years [...] encounter Miscellaneous Notes * Telephone Encounter - Lupe Cosme RN - 05/25/2024 10:41 AM EST Diagnostic right breast US 05/25/24 Bi-rads 4-Suspicious finding noted. Message sent to [facility] for tracking. documented in this encounter Plan of Treatment Upcoming Encounters Date Type Department Care Team (Late st Contact Info) Description 07/06/2024 3:00 PM EST Office Visit [facility] ADULT DENTAL [address] [place] [address] [address] Maldonado[address] [place] [address] 07/19/2024 4:00 PM EST Office Visit [facility] MEDICINE [address] [place] [address] NameMartín MD [address] [place] [address] documented as of this encounter Visit Diagnoses Not on filedocumented in this encounter Additional Health Concerns Assessment Noted Time PHQ-9 Depression Total Score: 22 024 11:54 AM EST documented as of this encounter Care Teams Brim Raiser Relationship Specialty Start Date End Date NameMartín MD [address] [place] [address] PCP - General Family Medicine 07/18/15 documented as of this encounter
--- OUTSIDE RECORDS SUMMARY | 2024-06-23 08:30 | XMS_ITS | Encounter Summary ---
Author Organization [employer] Address 75 [facility] 7t [place] [address] Care Team Providers Care Ict Help Desk Officer Name Role Phone Name, Martín MARKS Primary Care Provider [phone] Encounter Details Date Type Department Care Team ([facility] st Contact Info) Description 03/25/2023 Orders Only [facility] MEDICINE [address] [place], [place] [phone] Name, MD Martín [address] [place] [address] Social History Tobacco Use Types Packs/Day Years [...] 3:00 PM EST Office Visit [facility] ADULT DENTAL [address] [place] [address] Erica, Kasia [address] [place] [address] 07/19/2024 4:00 PM EST Office Visit [facility] MEDICINE [address] [place] [address] Name, MD Martín [address] [place] [address] documented as of this encounter Visit Diagnoses Not on filedocumented in this encounter Care Teams Ict Help Desk Officer Relationship Specialty Start Date End Date Name, MD Martín [address] [place] [address] PCP - General Family Medicine 07/18/15 documented as of this encounter
--- OUTSIDE RECORDS SUMMARY | 2024-06-23 08:30 | XMS_ITS | Encounter Summary ---
Author Organization [employer] Address 75 [facility] 7t [place] [address] Care Team Providers Care Marketing Executive Name Role Phone Name, Martín MARKS Primary Care Provider [phone] Reason for Visit * Reason Comments Med Refill Encounter Details Date Type Department Care Team (Late st Contact Info) Description 09/25/2022 Refill [facility] MEDICINE [address] [place] [address] [phone] Name, MD Martín [address] [place] [address] Insomnia, unspecified type Social History Tobacco Use [...] Description 07/06/2024 3:00 PM EST Office Visit [facility] ADULT DENTAL [address] [place], [place] [phone] Erica, Kasia [address] [place] [address] 07/19/2024 4:00 PM EST Office Visit [facility] MEDICINE [address] [place] [address] Name, MD Martín [address] [place] [address] documented as of this encounter Visit Diagnoses Diagnosis Insomnia, unspecified type documented in this encounter Care Teams Marketing Executive Relationship Specialty Start Date End Date Name, MD Martín [address] [place] [address] PCP - General Family Medicine 07/18/15 documented as of this encounter
--- OUTSIDE RECORDS SUMMARY | 2024-06-23 08:30 | XMS_ITS | Encounter Summary ---
Author Organization [employer] Address 75 [facility] 7t [place] [address] Care Team Providers Care Watermelon Inspector Name Role Phone Name, Martín MARKS Primary Care Provider Encounter Details Date Type Department Care Team (Late st Contact Info) Description 03/07/2023 Orders Only [facility] MED & PEDS [address] [place], [place] [phone] Geno Malave LPN Social History Tobacco Use Types Packs/Day Years [...] Description 07/06/2024 3:00 PM EST Office Visit [facility] ADULT DENTAL [address] [place] [address] Erica, Kasia [address] [place] [address] 07/19/2024 4:00 PM EST Office Visit [facility] MEDICINE [address] [place] [address] Name, MD Martín [address] [place] [address] documented as of this encounter Procedures Procedure Name Priority Date/Time Associated Diagnosis Comments BI MAMMOGRAM SCREENING TOMOSYNTHESIS BILATERAL Routine 03/11/2023 2:45 PM EDT documented in this encounter Results * BI Mammogram Screening Tomosynthesis Bilateral (03/11/2023 2:45 PM EDT) Anatomical Region Laterality Modality Breast Bilateral Mammography 03/11/2023 2:45 PM EDT Narrative 03/29/2023 1:32 PM EST ? [facility] ? [address] [facility] ?[place] [address] ? Mammography Report ? Signed ? Patient: Raimundo Abdalla,Eduarda ?MR ?? #: [id number] ? : 1950 ?Acct:[id number] ? Age/Sex: 72 / F ?ADM Date: 10/24/23 ? Loc: HO.MAMMO ? Attending : Martín Pittman MD ? Ordering Physician: Toya,Martín MARKS ?Results: 1Negative ? Date of Service: 03/11/23 ?Follow Up: 1 Year From Orig ?? inal Mammogram ? Procedure(s): MM tomosynthesis screening BI ?? Accession Number(s): [id number] ? cc: Toya,Martín MARKS ? EXAMINATION: ?? MM SCREENING DIGITAL BREAST TOMOSYNTHESIS, BILATERAL ? CLINICAL INFORMATION: ? Screening. Asymptomatic. ? COMPARISON: ?? Mammography: This study is compared with prior exams dating back to ?? 2017. ? TECHNIQUE: ?? Digital breast tomosynthesis is performed in both the craniocaudal and ?? mediolateral oblique views along with computer-aided detection (CAD). ?? Synthesized 2D images are generated from the tomosynthesis. ? FINDINGS: ?? There are scattered areas of fibroglandular density (ACR BI-RADS breast ?? composition Category b). ? There are no significant masses, abnormal calcifications, or other ?? abnormalities. ? MM/MM tomosynthesis screening BI ?? IMPRESSION: ?? No mammographic evidence of malignancy. ? ASSESSMENT: ? BI-RADS BI-RADS 1 - Negative ? RECOMMENDATION: ?? Routine annual mammography screening. ? 1 year F/U ? This examination should not preclude the clinical evaluation of a ?? suspicious palpable abnormality. ? This patient's information was entered into a reminder system with a ?? target due date for their next mammogram. ? Dictated By: ?Destiny Gilman MD ? Signed By: ?<Electronically signed by Destiny Gilman MD in OV> ? 11/11/ 1329 ? DD/DT: 03/11/ 1445 ? TD/TT: ? Customs Broker: ? Procedure Note Donotuseinterpreter, Image - 03/29/2023 [facility] [address] [place] [address] [place] [address] Mammography Report Signed Patient: Wendie Faye MMR #: [id number] : 3Acct:[id number] Age/Sex: 72 / FADM Date: 03/11/23 Loc: HO.MAMMO Attending Dr: Martín Pittman MD Ordering Physician: Matrín Pittman MDResults: 1Negative Date of Service: 03/11/23Follow Up: 1 Year From Orig inal Mammogram Procedure(s): MM tomosynthesis screening BI Accession Number(s): [id number] cc: Martín Pittman MD EXAMINATION: MM SCREENING DIGITAL BREAST TOMOSYNTHESIS, BILATERAL CLINICAL INFORMATION: Screening. Asymptomatic. COMPARISON: Mammography: This study is compared with prior exams dating back to 2018. TECHNIQUE: Digital breast tomosynthesis is performed in both the craniocaudal and mediolateral oblique views along with computer-aided detection (CAD). Synthesized 2D images are generated from the tomosynthesis. FINDINGS: There are scattered areas of fibroglandular density (ACR BI-RADS breast composition Category b). There are no significant masses, abnormal calcifications, or other abnormalities. MM/MM tomosynthesis screening BI IMPRESSION: No mammographic evidence of malignancy. ASSESSMENT: BI-RADS BI-RADS 1 - Negative RECOMMENDATION: Routine annual mammography screening. 1 year F/U This examination should not preclude the clinical evaluation of a suspicious palpable abnormality. This patient's information was entered into a reminder system with a target due date for their next mammogram. Dictated By: Destiny Gilman MD Signed By: <Electronically signed by Destiny Gilman MD in OV> 03/29/23 1329 DD/ 1445 TD/TT: Customs Broker: Martín Pittman MD IMG BI PROCEDURES Edited Result - Final documented in this encounter Visit Diagnoses Not on filedocumented in this encounter Care Teams Watermelon Inspector Relationship Specialty Start Date End Date Name, MD Martín [address] [place] [address] PCP - General Family Medicine 07/18/15 documented as of this encounter
--- OUTSIDE RECORDS SUMMARY | 2024-06-23 08:30 | XMS_ITS | Encounter Summary ---
Author Organization [employer] Address 75 [facility] 7t [place] [address] Care Team Providers Care Lounge Car Attendant Name Role Phone Name, Martín MARKS Primary Care Provider [phone] Reason for Visit * Reason Comments Med Refill Encounter Details Date Type Department Care Team (Late st Contact Info) Description 07/26/2022 Refill [facility] MEDICINE [address] [place], [place] [phone] Name, MD Martín [address] [place] [address] Insomnia, unspecified type Social History Tobacco Use Types Packs/Day Years Used Date Smoking Tobacco: Never Smokeless Tobacco: Never Depression Answer Date Recorded Patient Health Questionnaire-2 Score 0 07/22/2022 Comments Unknown Sex and Gender Information Value Date Recorded Sex Assigned at Female 03/18/2022 10:20 AM EDT Legal Sex Female 10:20 AM EDT Gender Identity Female 03/18/2022 10:20 AM EDT Sexual Orientation Don't know 03/18/2022 10 :20 AM EDT COVID-19 Exposure Response Date Recorded In the last 10 days, have yo u been in contact with someone who was confirmed or suspected to have Coronavirus/COVID-19? No / Unsure 07/22/2022 2:03 PM EST documented as of this encounter Plan of Treatment Upcoming Encounters Date Type Department Care Team (Late st Contact Info) Description 07/06/2024 3:00 PM EST Office Visit [facility] ADULT DENTAL [address] [place], [place] [phone] Kasia Maldonado [address] [place] [address] 07/19/2024 4:00 PM EST Office Visit [facility] MEDICINE [address] [place] [address] Name, [place] [address] documented as of this encounter Visit Diagnoses Diagnosis Insomnia, unspecified type documented in this encounter Care Teams Lounge Car Attendant Relationship Specialty Start Date End Date Name, [place] [address] PCP - General Family Medicine 07/18/15 documented as of this encounter
--- OUTSIDE RECORDS SUMMARY | 2024-06-23 08:30 | XMS_ITS | Encounter Summary ---
Author Organization [employer] Address 75 [facility] 7t [place] [address] Care Team Providers Care Waiter/Waitress Counter Name Role Phone Name, Martín MARKS Primary Care Provider [phone] Reason for Visit * Reason Onset Date Comments Call Back Request 07/11/2023 Encounter Details Date Type Department Care Team ([facility] st Contact Info) Description 07/11/2023 Telephone [facility] MEDICINE [address] [place], [place] [phone] Name, MD Martín [address] [place] [address] Call Back Request Social History Tobacco Use Types Packs/Day Years [...] encounter Miscellaneous Notes * Telephone Encounter - Ivan Batista RN - 07/14/2023 1:25 PM EST T/C to pt. For below message through [employer] id - [id number], pt. States she has already apt. For CT scan, pt. Is all set right now. Advised to give call to [facility] if any question or concerns. * Telephone Encounter - Sharon Langford - 07/11/2023 11:45 AM EST Tc from pt requesting order for ct scan on left hand stated talk with PCP about this please contactpt for clarifications. documented in this encounter Plan of Treatment Upcoming Encounters Date Type Department Care Team (Late st Contact Info) Description 07/06/2024 3:00 PM EST Office Visit [facility] ADULT DENTAL [address] [place] [address] EricaLongKasia [address] [place] [address] 07/19/2024 4:00 PM EST Office Visit [facility] MEDICINE [address] [place] [address] Martín Pittman MD [address] [place] [address] documented as of this encounter Visit Diagnoses Not on filedocumented in this encounter Care Teams Waiter/Waitress Counter Relationship Specialty Start Date End Date NameMartín MD [address] [place] [address] PCP - General Family Medicine 07/18/15 documented as of this encounter
--- OUTSIDE RECORDS SUMMARY | 2024-06-23 08:30 | XMS_ITS | Encounter Summary ---
Author Organization [employer] Address 75 [facility] 7t h Floor [address] Care Team Providers Care Fibrous Wallboard Inspector Name Role Phone Name, Martín MARKS Primary Care Provider [phone] Reason for Visit * Reason Comments Med Refill Encounter Details Date Type Department Care Team ([facility] st Contact Info) Description 04/09/2023 Refill [facility] MEDICINE [address] [place], [place] [phone] Name, MD Martín [address] [place] [address] Social History Tobacco Use Types Packs/Day Years [...] Description 07/06/2024 3:00 PM EST Office Visit [facility] ADULT DENTAL [address] [place] [address] Erica, Kasia [address] [place] [address] 07/19/2024 4:00 PM EST Office Visit [facility] MEDICINE [address] [place] [address] Name, MD Martín [address] [place] [address] documented as of this encounter Visit Diagnoses Not on filedocumented in this encounter Care Teams Fibrous Wallboard Inspector Relationship Specialty Start Date End Date Name, MD Martín [address] [place] [address] PCP - General Family Medicine 07/18/15 documented as of this encounter
--- OUTSIDE RECORDS SUMMARY | 2024-06-23 08:30 | XMS_ITS | Encounter Summary ---
Author Organization [employer] [facility] Address 75 [facility] 7t [place] [address] Care Team Providers Care Equine Manager Name Role Phone Name, Martín MARKS Primary Care Provider [phone] Encounter Details Date Type Department Care Team (Latest Contact Info) Description 07/26/[address] [facility] CONVERSIONS Dental, Provider, DDS Social History [...] Description 07/06/2024 3:00 PM EST Office Visit [facility] ADULT DENTAL [address] [place] [address] Erica, Kasia [address] [place] [address] 07/19/2024 4:00 PM EST Office Visit [facility] MEDICINE [address] [place] [address] Name, MD Martín [address] [place] [address] documented as of this encounter Visit Diagnoses Not on filedocumented in this encounter Care Teams Equine Manager Relationship Specialty Start Date End Date Martín Pittman MD [address] [place] [address] PCP - General Family Medicine 07/18/15 documented as of this encounter
--- OUTSIDE RECORDS SUMMARY | 2024-06-23 08:30 | XMS_ITS | Encounter Summary ---
Author Organization [employer] Address 75 [facility] 7t [place] [address] Care Team Providers Care Agriscience Technology Instructor Name Role Phone Name, Martín MARKS Primary Care Provider [phone] Reason for Visit * Reason Onset Date Comments Med Refill 06/21/2024 Encounter Details Date Type Department Care Team (Late st Contact Info) Description 06/21/2024 Refill [facility] MEDICINE [address] [place], [place] [phone] Name, MD Martín [address] [place] [address] Insomnia, unspecified type Social History Tobacco Use [...] Telephone Encounter - Geno Malave LPN - 06/21/2024 2:29 PM EST RECONCILIATION SPECIALIST checked on 06/21/24. Next appointment 07/19/24. * Telephone Encounter - Himanshu Kerns - 06/21/2024 2:00 PM EST TC from pt requesting medication refill. Medications needing refill : zolpidem (Ambien) 10 MG tablet To be sent to: [facility]/pharmacy #[id number] documented in this encounter Plan of Treatment Upcoming Encounters Date Type Department Care Team (Late st Contact Info) Description 07/06/2024 3:00 PM EST Office Visit [facility] ADULT DENTAL [address] [place], [place] [phone] Erica, Kasia [address] [place], [place] [phone] 07/19/2024 4:00 PM EST Office Visit [facility] MEDICINE [address] [place] [address] Name, MD Martín [address] [place] [address] documented as of this encounter Visit Diagnoses Diagnosis Insomnia, unspecified type documented in this encounter Additional Health Concerns Assessment Noted Time PHQ-9 Depression Total Score: 22 024 11:54 AM EST documented as of this encounter Care Teams Agriscience Technology Instructor Relationship Specialty Start Date End Date Name, MD Martín [address] [place] [address] PCP - General Family Medicine 07/18/15 documented as of this encounter
--- OUTSIDE RECORDS SUMMARY | 2024-06-23 08:30 | XMS_ITS | Clinical Summary ---
Author Organization [employer] Address [address] [place] [address] Care Team Providers Care Marketing Rotation Associate Name Role Phone Name, Martín MARKS Primary Care Provider [phone] Allergies No known active allergies Medications atorvastatin (Lipitor) 20 MG tablet Take 20 mg by mouth in the morning. 02/27/20 22 Active budesonide (Pulmicort) 0.5 MG/2ML nebulizer solution USE 1 VIAL VIA NEBULIZER EVERY DAY 180 mL 3 03/07/20 23 Active Calcium Carb-Cholecalci ferol 500-10 MG-MCG tablet Take 1 tablet by mouth 2 times daily. 07/20/19 17 Active cholecalciferol (Vitamin D-3) 50 MCG (2000 UT) tablet Take 1 tablet by mouth 1 (one) time each day. 12/18/19 22 Active cyanocobalamin (Vitamin B-12) 1000 MCG tablet Take 1 tablet by mouth in the morning. 07/20/19 17 Active methocarbamol (Robaxin) 750 MG tablet Take 1 tablet (750 mg) by mouth 3 times daily for 10 days. 30 tablet 04/03/20 23 Active albuterol (Ventolin HFA) 108 (90 Base) MCG/ACT inhaler INHALE 2 PUFFS EVERY 6 HOURS IF NEEDED FOR WHEEZING. 18 g 2 05/26/19 24 Active losartan (Cozaar) 25 MG tablet TOME ELISE TABLETA POR V A ORAL TODOS LOS D 09/09/19 24 Active omeprazole (PriLOSEC) [address] capsule TOME 1 C PSULA POR V A ORAL TODOS LOS D 08/12/19 24 Active loratadine (Claritin) 10 MG tabletIndicatio ns:Allergic rhinitis, unspecified seasonality, unspecified trigger TAKE 1 TABLET BY MOUTH EVERY MORNING 90 tablet 1 11/21/19 24 Active amLODIPine (Norvasc) 5 MG tablet Take 1 tablet by mouth Once per day. Active zolpidem (Ambien) 10 MG tabletIndicatio ns:Insomnia, unspecified type TAKE 1 TABLET BY MOUTH AT BEDTIME IF NEEDED FOR SLEEP 30 tablet 06/21/19 25 Active zolpidem (Ambien) 10 MG tabletIndicatio ns:Insomnia, unspecified type TAKE 1 TABLET BY MOUTH AT BEDTIME IF NEEDED FOR SLEEP 30 tablet 05/21/19 25 025 Discontinued(Re order (will not trigger notification to Pharmacy)) Active Problems Problem Noted Date Diagnosed Date Osteoarthritis of left shoulder 03/02/2024 Left hand pain 03/02/2024 Hospital discharge follow-up 03/02/2024 Overview (03/02/2024): D/C from [facility]--readmitted to x 1 day-biotics discharge p.o. antibiotics x5 days symptoms resolve Diverticulitis 03/02/2024 Acute diverticulitis 03/02/2024 Overview (03/02/2024): Admitted H , and Abdominal pain 03/02/2024 Missing teeth, acquired 01/01/2024 Acid reflux 09/15/2023 Overview (03/02/2024): Avoid culprits, PPI EGD Atypical chest pain 09/15/2023 Duodenitis 09/15/2023 Osteoarthritis of left knee 09/15/2023 Osteoarthritis of right knee 09/15/2023 Tendinitis of left rotator cuff 09/15/2023 Hypertension 09/15/2023 Class 1 obesity 04/03/2023 04/03/2023 History of fatty infiltration of liver Toothache 11/20/2022 Localized gingival recession, minimal 11/14/2022 Dental plaque 08/12/2022 Mild intermittent asthma 07/22/2022 CMC arthritis, thumb, degenerative 07/22/2022 Osteopenia 07/22/2022 Migraine 07/21/2018 History of total hysterectomy 04/06/2018 Neuropathy 01/26/2018 Essential hypertension 11/17/2017 Ascending aorta dilatation 06/18/2017 Cocaine abuse 07/19/2016 Snoring 03/27/2016 Asthma 11/17/2015 Seasonal allergic rhinitis 11/17/2015 Carpal tunnel syndrome 10/18/2015 Insomnia 08/23/2011 Major depressive disorder 08/23/2011 Anxiety state 08/23/2011 Resolved Problems Problem Noted Date Diagnosed Date Resolved Date Drowsy 05/20/2018 11/20/2022 Morning headache 05/20/2018 11/20/2022 Tired 05/20/2018 11/20/2022 Encounters Date Type Department Care Team Description 06/21/2024 Refill [facility] [address] [place] [address] Martín Pittman MD Insomnia, unspecified type 05/25/2024 Telephone [facility] [address] [place] [address] Lupe Cosme, [place] 05/20/2024 Refill [facility] [place] [address] Martín Pittman MD Insomnia, unspecified type 05/17/2024 Telephone [facility] [address] [place] [address] Marcelle Jeter MA feb recalls 05/14/2024 Telephone [facility] [address] [place] [address] Lupe Cosme, [place] 05/10/2024 1:00 PM EST Office Visit [facility] [place] [address] Martín Pittman MD Positive hepatitis C antibody test (Primary Dx); Diverticulitis 05/10/2024 Orders Only GENERIC EXTERNAL DATA DEPARTMENT Provider, Generic External Data 04/23/2024 Telephone [facility] [place] [address] Martín Pittman MD No Show 04/20/2024 Refill [facility] [address] [place] [address] Martín Pittman MD Insomnia, unspecified type 04/14/2024 Telephone [facility] [place] [address] Lydia Mckeon MA chartprep 04/12/2024 Patient Outreach [address] [address] Martín Pittman MD Transition Of Care (Tcm) (HDF scheduled) 04/12/[address] [address] Martín Pittman MD Hospital Follow-up 04/07/2024 Orders Only GENERIC EXTERNAL DATA DEPARTMENT Provider, Generic External Data 04/06/2024 11:15 AM EST Office Visit [address] [address] Martín Pittman MD LLQ pain (Primary Dx); History of diverticulitis; Hepatitis C antibody positive in blood 04/06/[address] [address] Lupe Cosme, [place] 04/06/[address] [address] Martín Pittman MD 04/01/[address] [address] Marcelle Jeter MA chart prep 03/26/2024 Orders Only GENERIC EXTERNAL DATA DEPARTMENT Provider, Generic External Data 03/23/[address] [address] Martín Pittman MD Nurse Triage 03/23/[address] [address] Martín Pittman MD Insomnia, unspecified type from Last 3 Months Immunizations Name Administration Dates Next Due Hep A, Adult 06/16/2023,12/16/2022 Hep B, adult 06/16/2023,01/13/2023,12/16/2022 Influenza injectable quadriv alent preservative free 01/30/2015 Influenza, IIV3, injectable 03/11/2014 Pfizer Covid-19 Vaccine 12+ 01/02/2022, Pfizer Covid-19 Vaccine 12+ tong-sucrose (Ansari Cap) 01/02/2022,10/30/2021 Pneumococcal Conjugate PCV 13 02/03/2019 Pneumococcal Conjugate PCV 20 09/15/2023 Pneumococcal Polysaccharide PPSV23 03/19/2017 Tdap 03/27/2016 Social History Tobacco Use Types Packs/Day Years Used Date Smoking Tobacco: Never Passive Smoke Exposure: Never Smokeless Tobacco: Never Tobacco Cessation:Counseling Given: Not Answered Alcohol Use Standard Drinks/Week Comments Defer 0 [...] Don't know 03/18/2022 10 :20 AM EDT Last Filed Vital Signs Vital Sign Reading Time Taken Comments Blood Pressure 141/84 05/10/2024 1:10 PM EST Pulse 87 05/10/2024 1:10 PM EST Temperature 36.7 ??C (98 ??F) 05/10/2024 1:10 PM EST Respiratory Rate 18 05/10/2024 1:10 PM EST Oxygen Saturation 98% 05/10/2024 1:10 PM EST Inhaled Oxygen Concentration - - Weight 68 kg (150 lb) 05/10/2024 1:10 PM EST Height 149.9 cm (4' 11 ) 05/10/2024 1:10 PM EST Body Mass Index 30.3 05/10/2024 1:10 PM EST Plan of Treatment Upcoming Encounters Date Type Department Care Team (Late st Contact Info) Description 07/06/2024 3:00 PM EST Office Visit [facility] [address] [place], [place] [phone] Erica, Kasia [address] [place] [address] 07/19/2024 4:00 PM EST Office Visit [facility] [address] [place], [place] [phone] Name, MD Martín [address] [place], [place] [phone] Health Maintenance Due Date Last Done Comments CT Colonography 1950 FIT DNA/Cologuard 1950 FOBT 1950 Sigmoidoscopy 1950 Zoster Vaccines (1 of 2) 2002 RSV Patients and Patients Aged 60 years or older (1 - Risk 60-74 years 1-dose series) 2012 FIT 07/15/2023 07/15/2022, 07/15/2022 Dental Oral Exam 12/24/2023 06/24/2023, 08/12/2022 COVID-19 Vaccine ( season) 2024 01/02/2022, 01/02/2022, 10/30/2021, Additional history exists Influenza Vaccine (#1) 2024 01/30/2015, 2013 Dental X-Ray: Bitewings 06/25/2024 06/24/2023, 08/12 Dental Prophylaxis 07/04/2024 01/01/2024, 0 06/24/2023, 11/14/2022 SDOH Screening 09/14/2024 09/15/2023 Depression Monitoring (PHQ-9) 10/04/2024 04/06/2024, 04/06/2024 Dental X-Ray: Full Mouth 11/07/2024 11/06/2021 Alcohol/Substance Use Screening 04/06/2025 04/06/2024 Depression Screening 04/06/2025 04/06/2024, 04/06/20 Tobacco Screening 05/10/2025 05/10/2024 DTaP/Tdap/Td Vaccines (2 - Td or Tdap) 03/27/2026 03/27/2016 Mammogram 05/25/2026 05/25/2024, 03/19, 03/11/2023, Additional history exists Lipid Panel 07/25/2027 07/24/2022, 10/17, 03/06/2021, Additional history exists Colonoscopy 08/11/2028 08/12/2023, 03/31/2018 Colorectal Cancer Screening 08/11/2028 Hepatitis A Vaccines Completed 06/16/2023, 12/17/19 Hepatitis B Vaccines Completed 06/16/2023, 01/13/2023, 12/16/2022 Pneumococcal Vaccine: 50+ Years Completed 09/15/2023, 02/03/2019, 03/19/2017 Hepatitis C Screening Completed 05/10/2024 , 05/10/2024, 03/26/2024 HIB Vaccines Aged Out No longer eligi ble based on patient's age to complete this topic HPV Vaccines Aged Out No longer eligi ble based on patient's age to complete this topic IPV Vaccines Aged Out No longer eligi ble based on patient's age to complete this topic Meningococcal Vaccine Aged Out No trinh gilberto eligible based on patient's age to complete this topic RSV under 20 months Aged Out No longe r eligible based on patient's age to complete this topic Rotavirus Vaccines Aged Out No longer eligible based on patient's age to complete this topic Procedures Procedure Name Priority Date/Time Associated Diagnosis Comments BI US BREAST LIMITED RIGHT Routine 05/25/2024 9:45 AM EST BI MAMMOGRAM DIAGNOSTIC TOMOSYNTHESIS ADDED VIEW RIGHT Routine 05/25/2024 9:05 AM EST HEPATITIS C ANTIBODY Routine 05/10/2024 1:37 PM EST HCV RNA BY PCR, QN RFX DARIN Routine 05/10/2024 1:37 PM EST HEPATITIS C AB W/REFL TO HCV RNA, QN, PCR Routine 05/10/2024 1:37 PM EST Positive hepatitis C antibody test CT ABDOMEN PELVIS W CONTRAST Routine 04/07/2024 11:16 AM EST COMPREHENSIVE METABOLIC PANEL Routine 04/07/2024 10:35 AM EST URINALYSIS, COMPLETE, WITH REFLEX TO CULTURE Routine 04/07/2024 10:35 AM EST CBC WITH AUTO DIFFERENTIAL Routine 04/07/2024 10:35 AM EST BASIC METABOLIC PANEL Routine 04/06/2024 12:22 PM EST LLQ pain History of diverticulitis CBC WITH AUTO DIFFERENTIAL Routine 04/06/2024 12:22 PM EST LLQ pain History of diverticulitis BI MAMMOGRAM SCREENING TOMOSYNTHESIS BILATERAL Routine 03/30/2024 3:20 PM EST HEPATITIS C AB W/REFL TO HCV RNA, QN, PCR Routine 03/26/2024 3:11 PM EST HEPATITIS B SURFACE ANTIGEN, EIA Routine 03/26/2024 3:11 PM EST HEPATITIS B CORE AB TOTAL Routine 03/26/2024 3:11 PM EST HEPATITIS B SURFACE ANTIBODY, QUALITATIVE Routine 03/26/2024 3:11 PM EST HEPATITIS A ANTIBODY, TOTAL Routine 03/26/2024 3:11 PM EST PROPHYLAXIS - ADULT Routine 01/01/2024 9 :00 AM EDT Dental plaque HM COLONOSCOPY Routine 08/12/2023 BITEWINGS - 4 RADIOGRAPHIC IMAGES Routine 06/24/2023 11:00 AM EST Localized gingival recession, minimal Dental plaque PERIODIC ORAL EVALUATION - ESTABLISHED PATIENT Routine 06/24/2023 11:00 AM EST LIPID PANEL, STANDARD Routine 07/24/2022 9:07 AM EST Essential hypertension FECAL IMMUNOCHEMICAL Routine 07/15/2022 from Last 3 Months or Most Recently Relevant to Health Maintenance Results * BI US Breast Limited Right (05/25/2024 9:45 AM EST) Anatomical Region Laterality Modality Breast Right Ultrasound 05/25/2024 9:45 AM EST Narrative 05/25/2024 10:32 AM EST ? [facility] [place] ? [address] ?[place] [address] ? Ultrasound Report ? Signed ? Patient: Wendie Faye ?MR ?? #: [id number] ? : 1950 ?Acct:[id number] ? Age/Sex: 73 / F ?ADM Date: 05/25/24 ? Loc: HO.MAMMO ? Attending Dr: Martín Pittman MD ? Ordering Physician: Martín Pittman MD ?? Date of Service: 05/25/24 ?? Procedure(s): US breast RT limited mamm only ?? Accession Number(s): [id number] ? cc: Martín Pittman MD ? EXAMINATION: ?? MM DIAGNOSTIC DIGITAL BREAST TOMOSYNTHESIS, RIGHT ? Limited right breast ultrasound. ? CLINICAL INFORMATION: ? New oval mass in the upper inner right breast. Patient has a family ?? history of breast cancer including sister and maternal grandmother. ? COMPARISON: ?? Mammography: Made with prior examinations. ? TECHNIQUE: ?? Digital breast tomosynthesis is performed in both the craniocaudal and ?? mediolateral oblique views along with computer-aided detection (CAD). ?? Synthesized 2D images are generated from the tomosynthesis. ?? Limited right breast ultrasound. ? FINDINGS: ?? There are scattered areas of fibroglandular density (ACR BI-RADS breast ?? composition Category b). ?? Circumscribed oval mass in the upper inner breast persists on ?? additional imaging projections and is new from priors. ? Suspicious calcifications or other abnormal findings. ? Targeted color Doppler ultrasound demonstrates a hypoechoic oval ?? circumscribed solid mass versus complicated cyst at 1:00 5 cm from the ?? nipple measuring 7 x 3 x 7 mm. This is a likely correlate for the oval ?? mass seen on mammography. ? US/US breast RT limited mamm only ?? IMPRESSION: ?? New oval mass on mammogram with correlate of solid mass versus ?? complicated cyst on ultrasound at 1:00. Recommend ultrasound guided ?? core needle biopsy at this time for confirmation. ?? The findings and recommendations were discussed with the patient the ?? procedure will be scheduled. ? ASSESSMENT: ? BI-RADS BI-RADS 4 - Suspicious finding ? RECOMMENDATION: ?? Biopsy recommended ? Results were provided to the patient at time of visit by the ?? technologist. ? This patient's information was entered into a reminder system with a ?? target due date for their next mammogram. ? Electronically signed by: ??Reina Rod DO ??05/25/2024 10:30 AM EST ?? RP ? Dictated By: ?Reina Rod DO ? Signed By: ?<Electronically signed by Reina Rod, DO in OV> ? 05/25/24 1030 ? DD/ 0945 ? TD/TT: 05/25/24 0957 ? Shade Matcher: ? Procedure Note Willow, Courtney - 05/25/2024 [facility] [address] [place] [address] [place] [address] Ultrasound Report Signed Patient: Wendie Faye MMR #: [id number] : 3Acct:[id number] Age/Sex: 73 / FADM Date: 05/25/24 Loc: RENÉ Attending Dr: Martín Pittman MD Ordering Physician: Martín Pittman MD Date of Service: 05/25/24 Procedure(s): US breast RT limited mamm only Accession Number(s): [id number] cc: Martín Pittman MD EXAMINATION: MM DIAGNOSTIC DIGITAL BREAST TOMOSYNTHESIS, RIGHT Limited right breast ultrasound. CLINICAL INFORMATION: New oval mass in the upper inner right breast. Patient has a family history of breast cancer including sister and maternal grandmother. COMPARISON: Mammography: Made with prior examinations. TECHNIQUE: Digital breast tomosynthesis is performed in both the craniocaudal and mediolateral oblique views along with computer-aided detection (CAD). Synthesized 2D images are generated from the tomosynthesis. Limited right breast ultrasound. FINDINGS: There are scattered areas of fibroglandular density (ACR BI-RADS breast composition Category b). Circumscribed oval mass in the upper inner breast persists on additional imaging projections and is new from priors. Suspicious calcifications or other abnormal findings. Targeted color Doppler ultrasound demonstrates a hypoechoic oval circumscribed solid mass versus complicated cyst at 1:00 5 cm from the nipple measuring 7 x 3 x 7 mm. This is a likely correlate for the oval mass seen on mammography. US/US breast RT limited mamm only IMPRESSION: New oval mass on mammogram with correlate of solid mass versus complicated cyst on ultrasound at 1:00. Recommend ultrasound guided core needle biopsy at this time for confirmation. The findings and recommendations were discussed with the patient the procedure will be scheduled. ASSESSMENT: BI-RADS BI-RADS 4 - Suspicious finding RECOMMENDATION: Biopsy recommended Results were provided to the patient at time of visit by the technologist. This patient's information was entered into a reminder system with a target due date for their next mammogram. Electronically signed by: Reina Rod DO 05/25/2024 10:30 AM EST Dictated By: Reina Rod DO Signed By: <Electronically signed by Reina Rod DO in OV> 05/25/24 1030 DD/ 0945 TD/TT: 05/25/24 0957 Shade Matcher: us Martín DOMÍNGUEZ US PROCEDURES Edited Result - Final * BI Mammogram Diagnostic Tomosynthesis added right (05/25/2024 9:05 AM EST) Anatomical Region Laterality Modality Breast Left Mammography 05/25/2024 9:05 AM EST Narrative 05/25/2024 10:33 AM EST ? [place] [facility] ? [address] ?[place] [address] ? Mammography Report ? Signed ? Patient: Raimundo Abdalla,Eduarda ?MR ?? #: [id number] ? : 1950 ?Acct:[id number] ? Age/Sex: 73 / F ?ADM Date: 05/25/24 ? Loc: HO.MAMMO ? Attending Dr: Martín Pittman MD ? Ordering Physician: Martín Pittman MD ?Results: 4Suspiciou ?? s Finding ? Date of Service: 05/25/24 ?Follow Up: Biopsy Recommend ?? ed ? Procedure(s): MM tomosynthesis added views R ?? Accession Number(s): [id number] ? cc: Martín Pittman MD ? EXAMINATION: ?? MM DIAGNOSTIC DIGITAL BREAST TOMOSYNTHESIS, RIGHT ? Limited right breast ultrasound. ? CLINICAL INFORMATION: ? New oval mass in the upper inner right breast. Patient has a family ?? history of breast cancer including sister and maternal grandmother. ? COMPARISON: ?? Mammography: Made with prior examinations. ? TECHNIQUE: ?? Digital breast tomosynthesis is performed in both the craniocaudal and ?? mediolateral oblique views along with computer-aided detection (CAD). ?? Synthesized 2D images are generated from the tomosynthesis. ?? Limited right breast ultrasound. ? FINDINGS: ?? There are scattered areas of fibroglandular density (ACR BI-RADS breast ?? composition Category b). ?? Circumscribed oval mass in the upper inner breast persists on ?? additional imaging projections and is new from priors. ? Suspicious calcifications or other abnormal findings. ? Targeted color Doppler ultrasound demonstrates a hypoechoic oval ?? circumscribed solid mass versus complicated cyst at 1:00 5 cm from the ?? nipple measuring 7 x 3 x 7 mm. This is a likely correlate for the oval ?? mass seen on mammography. ? MM/MM tomosynthesis added views R ?? IMPRESSION: ?? New oval mass on mammogram with correlate of solid mass versus ?? complicated cyst on ultrasound at 1:00. Recommend ultrasound guided ?? core needle biopsy at this time for confirmation. ?? The findings and recommendations were discussed with the patient the ?? procedure will be scheduled. ? ASSESSMENT: ? BI-RADS BI-RADS 4 - Suspicious finding ? RECOMMENDATION: ?? Biopsy recommended ? Results were provided to the patient at time of visit by the ?? technologist. ? This patient's information was entered into a reminder system with a ?? target due date for their next mammogram. ? Electronically signed by: ??Reina Rod DO ??05/25/2024 10:30 AM EST ?? RP ? Dictated By: ?Reina Rod DO ? Signed By: ?<Electronically signed by Reina Rod, DO in OV> ? 05/25/24 1030 ? DD/ 0905 ? TD/TT: 05/25/24 0920 ? Shade Matcher: ? Procedure Note Courtney Daugherty - 05/25/2024 [facility] [address] [place] [address] [place] [address] Mammography Report Signed Patient: Wendie Faye MMR #: [id number] : 3Acct:[id number] Age/Sex: 73 / FADM Date: 05/25/24 Loc: RENÉ Attending Dr: Martín Pittman MD Ordering Physician: Martín Pittmanesults: 4Suspiciou s Finding Date of Service: 05/25/24Follow Up: Biopsy Recommend ed Procedure(s): MM tomosynthesis added views R Accession Number(s): [id number] cc: Name,Martín MARKS EXAMINATION: MM DIAGNOSTIC DIGITAL BREAST TOMOSYNTHESIS, RIGHT Limited right breast ultrasound. CLINICAL INFORMATION: New oval mass in the upper inner right breast. Patient has a family history of breast cancer including sister and maternal grandmother. COMPARISON: Mammography: Made with prior examinations. TECHNIQUE: Digital breast tomosynthesis is performed in both the craniocaudal and mediolateral oblique views along with computer-aided detection (CAD). Synthesized 2D images are generated from the tomosynthesis. Limited right breast ultrasound. FINDINGS: There are scattered areas of fibroglandular density (ACR BI-RADS breast composition Category b). Circumscribed oval mass in the upper inner breast persists on additional imaging projections and is new from priors. Suspicious calcifications or other abnormal findings. Targeted color Doppler ultrasound demonstrates a hypoechoic oval circumscribed solid mass versus complicated cyst at 1:00 5 cm from the nipple measuring 7 x 3 x 7 mm. This is a likely correlate for the oval mass seen on mammography. MM/MM tomosynthesis added views R IMPRESSION: New oval mass on mammogram with correlate of solid mass versus complicated cyst on ultrasound at 1:00. Recommend ultrasound guided core needle biopsy at this time for confirmation. The findings and recommendations were discussed with the patient the procedure will be scheduled. ASSESSMENT: BI-RADS BI-RADS 4 - Suspicious finding RECOMMENDATION: Biopsy recommended Results were provided to the patient at time of visit by the technologist. This patient's information was entered into a reminder system with a target due date for their next mammogram. Electronically signed by: Reina Rod DO 05/25/2024 10:30 AM EST Dictated By: Reina Rod DO Signed By: <Electronically signed by Reina Rod DO in OV> 05/25/24 1030 DD/ 0905 TD/TT: 05/25/24 0920 Shade Matcher: Martín [facility]man [facility] PROCED[facility] Edited Result - Final * Hepatitis C Ab (05/10/2024 1:37 PM EST) Hepatitis C Antibody Nonreactive Nonreactive [facility] Comment:Antibodies to HCV no t detected; does not exclude early acuteHCV infection. 05/10/2024 1:37 PM EST 05/10/2024 4:01 PM EST Generic External Data Provider LAB BLOOD ORDERAB LES Final Result Performing Organization Address [facility]/ZIP Co de Phone Number [facility] [address] [place] [address] [phone] * HCV RNA BY PCR, QN RFX DARIN (05/10/2024 1:37 PM EST) [facility] HCV RNA PCR QN <15 NOT DETECTED NOT DETECTED IU/mL [facility] HCV RNA PCR QN <1.18 NOT DETECTED NOT DETECTED Log IU/mL [facility] HCV RNA COMMENT SEE NOTE [facility] Comment:For additional infor ashanti, please refer tohttp://education.Apperian/faq/THP76y0(This link is being provided for informational/Educational purposes only.)THIS TEST WAS PERFORMED AT:[facility] [place] [phone] MCCLAIN MD HCV RNA GENOTYPE,LIPA TNP [facility] Comment:Test not indicated. 05/10/2024 1:37 PM EST 05/10/2024 4:01 PM EST Generic External Data Provider LAB BLOOD ORDERAB LES Final Result Performing Organization Address [facility] Co de Phone Number [facility] [address] [place] [phone] * Hepatitis C Antibody with Reflex to HCV, RNA, Quantitative, Real-Time PCR (05/10/2024 1:37 PM EST) Only the most recent of2 resultswithin the time period is included. Pathologist [facility] [place] Hepatitis C Antibody Nonreactive Nonreactive [facility] Comment:Antibodies to HCV no t detected; does not exclude early acuteHCV infection. Blood Venous blood specimen / Unknown 05/10/2024 1:37 PM EST 05/10/2024 4:01 PM EST us Martín Toya MARKS LAB BLOOD ORDERABLES Final Resul t [facility] [address] [place] [address] [phone] * CT Abdomen Pelvis w/ Contrast (04/07/2024 11:16 AM EST) Anatomical Region Laterality Modality Body, Pelvis, Abdomen Computed T omography 04/07/2024 11:1 6 AM EST Narrative 04/07/2024 12:15 PM EST ? [facility] ?[address] ?[place] [address] ? CT Scan Report ? Signed ? Patient: Raimundo Abdalla,Eduarda ?MR ?? #: [id number] ? : 1950 ?Acct:[id number] ? Age/Sex: 73 / F ?ADM Date: 04/07/24 ? Loc: HO.ED ? Attending Dr: ? Ordering Physician: Merna Abraham ?? Date of Service: 04/07/24 ?? Procedure(s): CT abdomen pelvis w IV con ?? Accession Number(s): [id number] ? cc: Merna Abraham; Name,Martín MARKS ? EXAMINATION: ?? CT ABDOMEN AND PELVIS WITH CONTRAST ? CLINICAL INFORMATION: ?? Worsening abdominal pain. ? COMPARISON: ?? CT dated February 28, 2024. ? TECHNIQUE: ?? Multidetector volumetric images were obtained from the superior aspect ?? of the liver through the pubic symphysis following administration 85 mL ?? of Omnipaque 350 intravenous contrast without reported immediate ?? complications. Sagittal and coronal reformatted images were obtained on ?? the technologist's workstation. ? Oral contrast: No ? This CT examination was performed using dose optimization techniques as ?? appropriate, variously including the following: ?? *Automated exposure control ?? *Adjustment of mA and/or kV according to patient size (this includes ?? techniques or standardized protocols for targeted exams where dose is ?? matched to indication/reason for exam; i.e. extremities or head) ?? *Use of iterative reconstruction technique ? DLP: ?? 461 mGy-cm ? FINDINGS: ? There is a 2 cm peripheral thin enhancing fluid collection extending ?? from the inferior right sigmoid colon wall into the pelvic peritoneal ?? cavity just anterior to the posterior wall of the bladder. No gas. ?? There is pericolonic edema pattern. Multiple gas and fluid-filled ?? mildly prominent distal small bowel loops in the right lower pelvic ?? peritoneal cavity. ?? There is no overt extraluminal gas or pneumoperitoneum. ?? Appendix is normal. ?? No intestinal obstruction pattern. ? No change in the appearance of the intra-abdominal solid organs and ?? vascular structures. ?? No acute airspace disease or gross pulmonary nodules in the included ?? lungs.. ? CT/CT abdomen pelvis w IV con ?? IMPRESSION: ?? 2 cm intramural phlegmon/abscess right inferior wall, sigmoid colon. ?? Regional ileus.. ? Fleischner guidelines were followed. ? Electronically signed by: ??Domingo Ibarra MD ??04/07/2024 12:12 PM ?? EST ? Dictated By: ?Domingo Law MD ? Signed By: ?<Electronically signed by Domingo Velez MD in OV> ? 04/07/24 1212 ? DD/ 1116 ? TD/TT: 04/07/24 1141 ? Shade Matcher: ? Procedure Note Courtney Daugherty - 04/07/[address] [address] [address] Scan Report Signed Patient: Wendie Faye MMR #: [id number] : 3Acct:[id number] Age/Sex: 73 / FADM Date: 04/07/24 Loc: HO.ED Attending Dr: Ordering Physician: Merna Abraham Date of Service: 04/07/24 Procedure(s): CT abdomen pelvis w IV con Accession Number(s): [id number] cc: Merna Abraham; Name,Martín MARKS EXAMINATION: CT ABDOMEN AND PELVIS WITH CONTRAST CLINICAL INFORMATION: Worsening abdominal pain. COMPARISON: CT dated February 28, 2024. TECHNIQUE: Multidetector volumetric images were obtained from the superior aspect of the liver through the pubic symphysis following administration 85 mL of Omnipaque 350 intravenous contrast without reported immediate complications. Sagittal and coronal reformatted images were obtained on the technologist's workstation. Oral contrast: No This CT examination was performed using dose optimization techniques as appropriate, variously including the following: *Automated exposure control *Adjustment of mA and/or kV according to patient size (this includes techniques or standardized protocols for targeted exams where dose is matched to indication/reason for exam; i.e. extremities or head) *Use of iterative reconstruction technique DLP: 461 mGy-cm FINDINGS: There is a 2 cm peripheral thin enhancing fluid collection extending from the inferior right sigmoid colon wall into the pelvic peritoneal cavity just anterior to the posterior wall of the bladder. No gas. There is pericolonic edema pattern. Multiple gas and fluid-filled mildly prominent distal small bowel loops in the right lower pelvic peritoneal cavity. There is no overt extraluminal gas or pneumoperitoneum. Appendix is normal. No intestinal obstruction pattern. No change in the appearance of the intra-abdominal solid organs and vascular structures. No acute airspace disease or gross pulmonary nodules in the included lungs.. CT/CT abdomen pelvis w IV con IMPRESSION: 2 cm intramural phlegmon/abscess right inferior wall, sigmoid colon. Regional ileus.. Fleischner guidelines were followed. Electronically signed by: Domingo Ibarra MD 04/07/2024 12:12 PM EST Dictated By: Domingo Law MD Signed By: <Electronically signed by Domingo Velez MDin OV> 04/07/24 1212 DD/ 1116 TD/TT: 04/07/24 1141 Shade Matcher: [facility] External Provider IMG CT PROCEDURES Final Result * (ABNORMAL) Urinalysis, Complete, with Reflex to Culture (04/07/2024 10:35 AM EST) Color Urine Yellow [facility] Appearance Urine Clear [facility] PH 5.5 5.0 - 9.0 [facility] Glucose Urine UA Negative Negative mg/dL [facility] Urine Blood Negative Negative [facility] Specific Tobias - Urine 1.015 1.005 - 1.025 [facility] Urine Protein Negative Neg-Trace mg/dL [facility] Urine Ketones Negative Negative mg/dL [facility] Nitrite Urine Negative Negative [facility] Leukocyte Esterase Urine Small (1+)(A) Negative [facility] RBC Urine 0-2 0 - 2 /HPF [facility] Urine WBC 6-10(A) 0 - 5 /HPF [facility] Urine Squamous Epithelial Cell 3-5 0 - 2 /HPF [facility] Urine Bacteria None Seen None Seen [facility] Hyaline Casts, Urine 0-2 0 - 2 /LPF [facility] 04/07/2024 10:3 5 AM EST 04/07/2024 10:42 AM EST Narrative [facility] - 04/07/2024 10:52 AM EST [id number], [employer] us Generic External Data Provider LAB URINE ORDERAB LES Final Result [facility] [address] [place] [address] [phone] * (ABNORMAL) CBC auto differential (04/07/2024 10:35 AM EST) Only the most recent of2 resultswithin the time period is included. White Blood Count 11.3(H) 4.8 - 10.8 X10*3/uL [facility] Red Blood Count 3.84(L) 4.20 - 5.50 X10*6/uL [facility] Hemoglobin 10.8(L) 12.0 - 16.0 g/dl [facility] Hematocrit 32.4(L) 37.0 - 47.0 % [facility] Mean Corpuscular Volume 84.4 80.0 - 98.0 fL [facility] Mean Corpuscular Hemoglobin 28.1 27.0 - 33.0 pg [facility] Mean Corpuscular HGB Conc 33.3 31.0 - 35.0 g/dl [facility] Red Cell Distribution Width 13.4 11.0 - 16.0 % [facility] Platelet Count 342 160 - 400 X10*3/uL [facility] Mean Platelet Volume 8.8(L) 9.4 - 12.3 fL [facility] Neutrophils Percent Auto 69.9 45 - 73 % [facility] Imm Gran Pct Auto 0.4 0.0 - 0.4 % [facility] Lymphocytes Percent Auto 19.8(L) 20 - 40 % [facility] Monocytes Percent Auto 9.1 2 - 11 % [facility] Eosinophils Percent Auto 0.4 0 - 4 % [facility] Basophils Percent Auto 0.4 0 - 2 % [facility] NRBC Pct Auto 0.0 0.0 - 0.2 /100WBC [facility] Neutrophils Absolute Auto 7.9 2.0 - 8.3 x10*3/uL [facility] Imm Gran Abs Auto 0.04(H) 0.00 - 0.03 X10*3/uL [facility] Lymphocytes Absolute Auto 2.2 1.2 - 4.9 X10*3/uL [facility] Monocytes Absolute Auto 1.0 0.1 - 1.2 X10*3/uL [facility] Eosinophils Absolute Auto 0.1 0.0 - 0.4 X10*3/uL [facility] Basophils Absolute Auto 0.0 0.0 - 0.2 X10*3/uL [facility] NRBC Abs Auto 0.000 0.0 - 0.012 X10*3/uL [facility] 04/07/2024 10:3 5 AM EST 04/07/2024 10:42 AM EST us Generic External Data Provider LAB BLOOD ORDERAB LES Final Result [facility] [address] [place] [address] [phone] * (ABNORMAL) Comprehensive Metabolic Panel (04/07/2024 10:35 AM EST) Sodium 137 135 - 145 mmol/L [facility] Potassium 4.1 3.3 - 5.1 mmol/L [facility] Chloride 105 96 - 108 mmol/L [facility] Carbon Dioxide 25 22 - 29 mmol/L [facility] Anion Gap 11(L) 12 - 20 [facility] Urea Nitrogen (BUN) 11 9 - 16 mg/dL [facility] Creatinine, Serum 0.74 0.5 - 1.4 mg/dL [facility] Creatinine Clr Calc Pharmacy 57.8 [facility] Comment:Provided height and weight: 149.86 cm,66.5 kg.eGFR (calculated from the MDRD study equation) and eCrCl(calculated from the Cockcroft-Gault equation) are based ondifferent parameters and may not yield comparable results.If eCrCl result is absurd, please check patient'sheight/weight. Estimated Glomerular Filt Rate >60 [facility] Comment:Chronic Kidney Disea se: Estimated GFR < 60 mL/min/1.59y5Hcwrmt Kidney Disease: Estimated GFR < 15 mL/min/1.73m2 Glucose 118(H) 60 - 115 mg/dL [facility] Calcium 8.8 8.4 - 10.2 mg/dL [facility] Bilirubin, Total 0.6 0.0 - 1.0 mg/dL [facility] Aspartate Amino Transferase 17 5 - 31 U/L [facility] Alanine Aminotransferase 15 0 - 31 U/L [facility] Total Protein 7.9 6.5 - 8.0 g/dL [facility] Albumin Level 4.0 3.5 - 5.0 g/dL [facility] Alkaline Phosphatase 68 39 - 117 U/L [facility] 04/07/2024 10:3 5 AM EST 04/07/2024 10:42 AM EST us Generic External Data Provider LAB BLOOD ORDERAB LES Final Result Performing Organization Address [facility] de Phone Number [facility] [address] [place] [address] [phone] * (ABNORMAL) Basic Metabolic Panel (04/06/2024 12:22 PM EST) Sodium 139 135 - 145 mmol/L [facility] Potassium 4.1 3.3 - 5.1 mmol/L [facility] Chloride 104 96 - 108 mmol/L [facility] Carbon Dioxide 24 22 - 29 mmol/L [facility] Anion Gap 15 12 - 20 [facility] Urea Nitrogen (BUN) 13 9 - 16 mg/dL [facility] Creatinine, Serum 0.82 0.5 - 1.4 mg/dL [facility] Estimated Glomerular Filt Rate >60 [facility] Comment:Chronic Kidney Disea se: Estimated GFR < 60 mL/min/1.45q9Ynnfjm Kidney Disease: Estimated GFR < 15 mL/min/1.73m2 Glucose 127(H) 60 - 115 mg/dL [facility] Calcium 9.9 8.4 - 10.2 mg/dL [facility] Blood Venous blood specimen / Unknown 04/06/2024 12:22 PM EST 04/06/2024 1:13 PM EST Martín Pittman MD LAB BLOOD ORDERABLES Final Resul t Performing Organization Address [facility] Co de Phone Number [facility] [address] [place] [address] [phone] * BI Mammogram Screening Tomosynthesis Bilateral (03/30/2024 3:20 PM EST) Anatomical Region Laterality Modality Breast Bilateral Mammography 03/30/2024 3:20 PM EST Narrative 04/01/2024 9:34 PM EST ? [facility] ? [address] ?[place] [address] ? Mammography Report ? Signed ? Patient: Raimundo Abdalla,Eduarda ?MR ?? #: [id number] ? : 1950 ?Acct:[id number] ? Age/Sex: 73 / F ?ADM Date: 03/30/24 ? Loc: HO.MAMMO ? Attending Dr: Martín Pittman MD ? Ordering Physician: Toya,Martín MARKS ?Results: 0Incomplet ?? e: Needs Additional Imaging Evaluation ? Date of Service: 03/30/24 ?Follow Up: Additional Imagi ?? ng ? Procedure(s): MM tomosynthesis screening BI ?? Accession Number(s): [id number] ? cc: Name,Martín MARKS ? EXAMINATION: ?? MM SCREENING DIGITAL BREAST TOMOSYNTHESIS, BILATERAL ? CLINICAL INFORMATION: ? Screening. Asymptomatic. ? COMPARISON: ?? Mammography: Comparison is made with available priors ? TECHNIQUE: ?? Digital breast mammography with tomosynthesis is performed in both the ?? craniocaudal and mediolateral oblique views along with computer-aided ?? detection (CAD). ? FINDINGS: ?? There are scattered areas of fibroglandular density (ACR BI-RADS breast ?? composition Category b). ?? Left: ?? There are no significant masses, abnormal calcifications, or other ?? abnormalities. ? Right: ?? Circumscribed oval mass upper inner breast middle depth. ?? No suspicious calcifications or other abnormal findings. ? MM/MM tomosynthesis screening BI ?? IMPRESSION: ?? Additional imaging is recommended ? ASSESSMENT: ? BI-RADS BI-RADS 0 - Incomplete: Needs additional Imaging. ? RECOMMENDATION: ?? 1. Additional views of the right breast ?? 2. Targeted ultrasound if warranted after review of the additional ?? views. ?? 3. Radiology department staff will contact the patient for additional ?? imaging. ? Additional Imaging required ? This examination should not preclude the clinical evaluation of a ?? suspicious palpable abnormality. ? This patient's information was entered into a reminder system with a ?? target due date for their next mammogram. ? Electronically signed by: ??Reina Rod DO ??04/01/2024 09:31 PM EST ? Dictated By: ?Reina Rod DO ? Signed By: ?<Electronically signed by Reina Rod, DO in OV> ? 04/01/241 ? DD/ 1520 ? TD/TT: 03/30/24 1535 ? Shade Matcher: ? Procedure Note [place], Image - 04/01/2024 [facility] [address] [place] [address] Mammography Report Signed Patient: Wendie Faye MMR #: [id number] : 3Acct:[id number] Age/Sex: 73 / FADM Date: 03/30/24 Loc: HO.MAMMO Attending Dr: Martín Pittman MD Ordering Physician: Martín Pittman MDResults: 0Incomplet e: Needs Additional Imaging Evaluation Date of Service: 03/30/24Follow Up: Additional Imagi ng Procedure(s): MM tomosynthesis screening BI Accession Number(s): [id number] cc: Martín Pittman MD EXAMINATION: MM SCREENING DIGITAL BREAST TOMOSYNTHESIS, BILATERAL CLINICAL INFORMATION: Screening. Asymptomatic. COMPARISON: Mammography: Comparison is made with available priors TECHNIQUE: Digital breast mammography with tomosynthesis is performed in both the craniocaudal and mediolateral oblique views along with computer-aided detection (CAD). FINDINGS: There are scattered areas of fibroglandular density (ACR BI-RADS breast composition Category b). Left: There are no significant masses, abnormal calcifications, or other abnormalities. Right: Circumscribed oval mass upper inner breast middle depth. No suspicious calcifications or other abnormal findings. MM/MM tomosynthesis screening BI IMPRESSION: Additional imaging is recommended ASSESSMENT: BI-RADS BI-RADS 0 - Incomplete: Needs additional Imaging. RECOMMENDATION: 1. Additional views of the right breast 2. Targeted ultrasound if warranted after review of the additional views. 3. Radiology department staff will contact the patient for additional imaging. Additional Imaging required This examination should not preclude the clinical evaluation of a suspicious palpable abnormality. This patient's information was entered into a reminder system with a target due date for their next mammogram. Electronically signed by: Reina Rod DO 04/01/2024 09:31 PM EST Dictated By: Reina Rod DO Signed By: <Electronically signed by Reina Rod DO in OV> 04/01/24 2131 DD/ 1520 TD/TT: 03/30/24 1535 Shade Matcher: Martíndeisy Pittman MD IMG BI PROCEDURES Edited Result - Final * Hepatitis A Antibody, Total (03/26/2024 3:11 PM EST) Hepatitis A Antibody IgG REACTIVE Nonreactive [facility] Comment:The presence of IgG anti-HAV implies past HAV infection(recent or distant) or vaccination against HAV. 03/26/2024 3:11 PM EST 03/26/2024 3:11 PM EST us Generic External Data Provider LAB BLOOD ORDERAB LES Final Result [facility] [address] [place] [phone] * Hepatitis B surface antigen, EIA (03/26/2024 3:11 PM EST) Hepatitis B Surface Ag Negative Negative [facility] 03/26/2024 3:11 PM EST 03/26/2024 3:11 PM EST us Generic External Data Provider LAB BLOOD ORDERAB LES Final Result Performing Organization Address [facility] Co de Phone Number [facility] [address] [place] [phone] * Hepatitis B Core Antibody, Total (03/26/2024 3:11 PM EST) Hepatitis B Core Antibody Nonreactive Nonreactive [facility] 03/26/2024 3:11 PM EST 03/26/2024 3:11 PM EST Generic External Data Provider LAB BLOOD ORDERAB LES Final Result Performing Organization Address [facility] de Phone Number [facility] [address] [place] [phone] * Hepatitis B Surface Antibody, Qualitative (03/26/2024 3:11 PM EST) ~Hepatitis B Surface Antibody REACTIVE Nonreactive [facility] Comment:REACTIVE: > 11.99 mI U/mL 03/26/2024 3:11 PM EST 03/26/2024 3:11 PM EST Generic External Data Provider LAB BLOOD ORDERAB LES Final Result Performing Organization Address [facility] de Phone Number [facility] [address] [place] [phone] * (ABNORMAL) Hm Colonoscopy (08/12/2023) Pathologist [facility] Colonoscopy Abnormal(A ) Normal Martín Pittman MD HEALTH MAINTENANCE Final Result * (ABNORMAL) Lipid Panel, Standard (07/24/2022 9:07 AM EST) Cholesterol, Total 206(H) <200 mg/dL [facility] HDL Cholesterol 40(L) > OR = 50 mg/dL [facility] Triglycerides 252(H) <150 mg/dL [facility] Comment: If a non-fasting specimen was collected, consider repeat triglyceride testing on a fasting specimen if clinically indicated. Arian et al. J. of Clin. Lipidol. 2015;9:129-169. LDL Cholesterol 127(H) mg/dL (calc) [facility] Comment: Reference range: <100 Desirable range <100 mg/dL for primary prevention; ?? <70 mg/dL for patients with CHD or diabetic patients with > or = 2 CHD risk factors. LDL-C is now calculated using the Amy calculation, which is a validated novel method providing better accuracy than the Friedewald equation in the estimation of LDL-C. James SS et al. SHEREE. 2013;310(19): 2022-0122 (http://education.IMASTE/faq/QIE685) Chol/HDLC Ratio 5.2(H) <5.0 (calc) [facility] Non-HDL Cholesterol 166(H) <130 mg/dL (calc) [facility] Comment: For patients with diabetes plus 1 major ASCVD risk factor, treating to a non-HDL-C goal of <100 mg/dL (LDL-C of <70 mg/dL) is considered a therapeutic option. Blood Venous blood specimen / Unknown 07/24/2022 9:07 AM EST 07/24/2022 9:08 AM EST Narrative [facility] - 07/24/2022 9:39 PM EST FASTING:NO FASTING: NO Martín Name LAB BLOOD ORDERABLES Final Resul t [facility] [address] [facility], [place] [address] [facility] [address] [facility], ([address]) [place] [address] * Fecal immunochemical (07/15/2022) Fecal Immunoassay Test (External) Negative Stool Rectal contents / Unknown Historical Provider LAB BODY FLUIDS AND STOOL S ORDERABLES Final Result from Last 3 Months or Most Recently Relevant to Health Maintenance Insurance [facility] - [facility] DENTAL - [facility] Care Teams Marketing Rotation Associate Relationship Specialty Start Date End Date Name, MD Martín [address] [place] [address] PCP - General Family Medicine 07/18/15
--- OUTSIDE RECORDS SUMMARY | 2024-06-23 08:30 | XMS_ITS | Encounter Summary ---
Author Organization [employer] Address [address] [facility] [address] [place] [address] Care Team Providers Care Speed Runner Name Role Phone Name, Martín MARKS Primary Care Provider [phone] Encounter Details Date Type Department Care Team (Late st Contact Info) Description 10/28/2022 Abstract [facility] [address] [place] [address] Martín Pittman MD [address] [place] [phone] Social History Tobacco Use Types Packs/Day Years [...] Description 07/06/2024 3:00 PM EST Office Visit [facility] [address] [place], [place] [phone] Kasia Maldonado [address] [place] [address] 07/19/2024 4:00 PM EST Office Visit [facility] [address] [place] [phone] Martín Pittman MD [address] [place] [address] documented as of this encounter Visit Diagnoses Not on filedocumented in this encounter Care Teams Speed Runner Relationship Specialty Start Date End Date Name, MD Martín [address] [place] [address] PCP - General Family Medicine 07/18/15 documented as of this encounter
--- OUTSIDE RECORDS SUMMARY | 2024-06-23 08:30 | XMS_ITS | Encounter Summary ---
Author Organization [employer] Address [address] [facility] [address] [place] [address] Care Team Providers Care Negotiator Name Role Phone Name, Martín MARKS Primary Care Provider [phone] Reason for Visit * Reason Comments Med Refill Encounter Details Date Type Department Care Team ([facility] st Contact Info) Description 01/21/2024 Refill [facility] [address] [place], [place] [phone] Name, MD Martín [address] [place] [address] Insomnia, unspecified type Social History Tobacco Use Types Packs/Day Years Used Date Smoking Tobacco: Never Passive Smoke Exposure: Never Smokeless Tobacco: Never Alcohol Use Standard Drinks/Week Comments Defer 0 (1 standard drink = 0.6 oz pur e alcohol) Depression Answer Date Recorded Patient Health Questionnaire-9 Score 10 09/15/2023 Patient Health Questionnaire-9 Score 10 09/15/2023 Last PHQ-9: Questionnaire Data Not on file 0 09/15/2023 Housing Stability Answer Date Recorded What is [...] Answer Date Recorded Patient Health Questionnaire-2 Score 4 09/15/2023 Comments No Sex and Gender Information Value [...] Description 07/06/2024 3:00 PM EST Office Visit [facility] AD[facility] [address] [place] [phone] EricaLongKasia [address] [place] [address] 07/19/2024 4:00 PM EST Office Visit [facility] [address] [place] [address] Name, MD Martín [address] [place] [phone] documented as of this encounter Visit Diagnoses Diagnosis Insomnia, unspecified type documented in this encounter Additional Health Concerns Assessment Noted Time PHQ-9 Depression Total Score: 10 024 1:21 PM EDT documented as of this encounter Care Teams Negotiator Relationship Specialty Start Date End Date Name, MD Martín [address] [place] [phone] PCP - General Family Medicine 07/18/15 documented as of this encounter
--- OUTSIDE RECORDS SUMMARY | 2024-06-23 08:30 | XMS_ITS | Encounter Summary ---
Author Organization [facility] Address [address] [facility] [address] [place] [address] Care Team Providers Care Aggregate Conveyor Operator Name Role Phone Name, Martín MARKS Primary Care Provider [phone] Encounter Details Date Type Department Care Team (Latest Contact Info) Description 11/01/2021 Abstract [facility] CONVERSIONS Dental, Provider, DDS Social History Tobacco [...] Description 07/06/2024 3:00 PM EST Office Visit [facility] ADULT DENTAL [address] [place] [phone] Erica Kasia [address] [place] [address] 07/19/2024 4:00 PM EST Office Visit [facility] MEDICINE [address] [place] [address] Name, MD Martín [address] [place] [address] documented as of this encounter Visit Diagnoses Not on filedocumented in this encounter Care Teams Aggregate Conveyor Operator Relationship Specialty Start Date End Date Martín Pittman MD [address] [place] [id number] PCP - General Family Medicine 07/18/15 documented as of this encounter
[2024-06-23] MEDS: Sodium Bicarbonate 8.4% 50 MEQ/50 ML VIAL SUBCUT (09:47)
[2024-06-23] MEDS: Lidocaine HCl 1 % 20 ML VIAL 9 ML SUBCUT (09:48)
== END 2024-06-23 08:26 | disposition home or self-care (01) ==
LOC: HO.MAMMO 08:25
PROVIDERS: PCP Internal Medicine Geriatric Medicine; Visit Provider Surgery
DX: N63.12 Unspecified lump in the right breast, upper inner quadrant (principal)
CPT/HCPCS: 19083; 77061; 77065; 88305; A4648; C1894; J2003

== ENCOUNTER → 2024-06-23 09:00 | Outpatient (BNV) | payer OTHER, SELFPAY | PROVIDERS: PCP Internal Medicine Geriatric Medicine; Visit Provider Internal Medicine | DX: N63.12 Unspecified lump in the right breast, upper inner quadrant (principal) | CPT/HCPCS: 19083; 77065 ==

== ENCOUNTER 2024-07-15 10:58 | Outpatient (REF) | payer OTHER, SELFPAY ==
--- NOTE | ~2024-07-15 | XR_ITS ---
CLINICAL HISTORY: M25.569 - Pain in unspecified knee Standing AP view of both knees with 2 additional views of the right knee. Comparison: None Findings: No fractures or dislocations. No significant arthritic change or erosions. No joint effusion. No radiopaque foreign body. IMPRESSION: 1. No acute findings. This document has been electronically signed by: Carlos Carbajal MD on 07/16/2024 11:13:42
--- OUTSIDE RECORDS SUMMARY | 2024-07-16 12:39 | XMS_ITS | Encounter Summary ---
Author Organization [email or web address] [facility] Address [address] [facility] 7t [place] [address] Care Team Providers Care Percussion Welding Machine Operator Name Role Phone Name, Martní MARKS Primary Care Provider [phone] Encounter Details Date Type Department Care Team (Latest Contact Info) Description 11/06/2020 Abstract [facility] CONVERSIONS Dental, Provider, DDS Social History [...] Description 07/19/2024 4:00 PM EST Office Visit [facility] MEDICINE [address] [place] [phone] NameMartín MD 230 [place] [address] 09/02/2024 2:00 PM EDT Office Visit [facility] ADULT DENTAL [address] [place] [address] Kasia Maldonado [address] [place] [address] documented as of this encounter Visit Diagnoses Not on filedocumented in this encounter Care Teams Percussion Welding Machine Operator Relationship Specialty Start Date End Date Martín Pittman MD [address] [place] [phone] PCP - General Family Medicine 07/18/15 documented as of this encounter
--- OUTSIDE RECORDS SUMMARY | 2024-07-16 12:39 | XMS_ITS | Encounter Summary ---
Author Organization [employer] [facility] Address [address] [facility] 7t [place] [address] Care Team Providers Care Privacy Attorney Name Role Phone Name, Martín MARKS Primary Care Provider [phone] Encounter Details Date Type Department Care Team (Latest Contact Info) Description 11/01/[address] [facility] CONVERSIONS Dental, Provider, DDS Social History [...] Description 07/19/2024 4:00 PM EST Office Visit [facility] MEDICINE [address] [place] [address] NameMartín MD 230 [place] [address] 09/02/2024 2:00 PM EDT Office Visit [facility] ADULT DENTAL 230 [place] [address] Kasia Maldonado [address] [place] [address] documented as of this encounter Visit Diagnoses Not on filedocumented in this encounter Care Teams Privacy Attorney Relationship Specialty Start Date End Date Martín Pittman MD [address] [place] [address] PCP - General Family Medicine 07/18/15 documented as of this encounter
--- OUTSIDE RECORDS SUMMARY | 2024-07-16 12:39 | XMS_ITS | Clinical Summary ---
Author Organization [employer] Address 75 [facility] 7t [place] [address] Care Team Providers Care Turkish Rubber Name Role Phone Name, Martín MARKS Primary Care Provider [phone] Allergies No known active allergies Medications atorvastatin [...] discharge follow-up 03/02/2024 Overview (03/02/2024): D/C from [facility]--readmitted to x 1 day-biotics discharge p.o. antibiotics [...] Type Department Care Team Description 07/15/2024 Telephone [facility] CHC MED & PEDS [address] [place] [address] Martín Pittman MD chartprep 07/14/2024 Telephone [facility] MEDICINE [address] [place] [address] Martín Pittman MD ER Follow-up 06/23/2024 Orders Only [facility] External Provider, [facility] 06/21/2024 Refill [facility] MEDICINE [address] [place] [address] Martín Pittman MD Insomnia, unspecified type 05/25/2024 Telephone [facility] MEDICINE [address] [place] [address] Lupe Cosme, RN 05/20/2024 Refill [facility] MEDICINE [address] [place] [address] Martín Pittman MD Insomnia, unspecified type 05/17/[address] [address] Marcelle Jeter [place] feb recalls 05/14/2024 Telephone [facility] MEDICINE [address] [place] [address] Lupe Cosme, RN 05/10/2024 1:00 PM EST Office Visit [facility] MEDICINE [address] [place] [address] Martín Pittman MD Positive hepatitis C antibody test (Primary Dx); Diverticulitis 05/10/2024 Orders Only GENERIC EXTERNAL DATA DEPARTMENT Provider, Generic External Data 04/23/[address] [address] Name, MD Martín No Show 04/20/2024 Refill [facility] MEDICINE [address] [place] [address] Name, MD Martín Insomnia, unspecified type from Last 3 Months [...] Description 07/19/2024 4:00 PM EST Office Visit [facility] MEDICINE [address] [place] [address] Name, MD Martín [address] [place] [address] 09/02/2024 2:00 PM EDT Office Visit [facility] ADULT DENTAL [address] [place] [address] Kasia Maldonado [address] [place] [address] Health Maintenance Due Date Last Done Comments [...] 9:33 AM EST 06/23/2024 12:00 PM EST [facility]S - 06/24/2024 12:21 PM EST ----- ------- Name: Wendie Faye ?Age/Sex: 73/F ? : 1950 Unit#: [id number] ?? Attend Dr: Tim Cifuentes MD ?Re06/23/24 ?Status: DEP REF ? Location: HO.MAMMO ?Disch: ? ----- ------- SPEC : [id number] ?RECD: 06/23/24-1200 ? STATUS: ??SOUT ? REQ NUM: [id number] ? MADHAV: 06/23/24-932 ? SUBM DR: Reina Rod DO ? ENTERED: ??06/23/246 ?SP TYPE: Surgical ? OTHR DR: Tim [...] Copies To: ?? Tim Cifuentes MD ?? [facility] General Surgeons ?? [address] ?? [place] [address] ?? [phone] ?? Name,Martín MARKS ?? [address] [facility] ?? [place] [address] ?? [phone] ? CONTINUED ON NEXT PAGE ----- ------- Name: Wendie Faye ?Age/Sex: 73/F ? : 1950 Unit#: [id number] ?? Attend Dr: Tim Cifuentes MD ?Re06/23/24 ?Status: DEP REF ? Location: HO.MAMMO ?Disch: ? ----- ------- SPEC : [id number] ?RECD: 06/23/24-1200 ? STATUS: ??SOUT ? REQ NUM: [id number] ? MADHAV: 06/23/24-932 ? SUBM DR: Reina Rod DO ? ENTERED: ??06/23/24-1206 ?SP TYPE: Surgical ? OTHR DR: Tim Cifuentes MD ?Name,Martín MARKS ORDERED: ??HE Stain/2, Gross Micro L4 ? COMMENTS: As per the specimen requisition slip the specimen is ?collected at 0933 and placed in formalin at 0940. Copies To: ??(Continued) ?? Reina Rod DO ?? [facility] ?? [place] [address] ?? [phone] ----- ------- Signed (signature on file) Catia Marshall 06/24/24 1221 ? ----- ------- ? END OF REPORT ? us Generic External Data Provider LAB BLOOD ORDERAB LES Final Result Performing Organization Address [facility]/State/ZIP Co de Phone Number [facility] [address] [facility] [place] [address] [phone] * US BREAST NDL CORE BIOPSY RT (06/23/2024 9:00 AM EST) Anatomical Region Laterality Modality Abdomen Ultrasound 06/23/2024 9:00 AM EST Narrative 06/23/2024 10:34 AM EST ? [facility] ? [address] ?[place] [address] ? Ultrasound Report ? Signed with Addenda ? Patient: Raimundo Abdalla,Eduarda ?MR ?? #: [id number] ? : 1950 ?Acct:[id number] ? Age/Sex: 73 / F ?ADM Date: 06/23/24 ? Loc: HO.MAMMO ? Attending Dr: Tim Cifuentes MD ? Ordering Physician: Tim Cifuentes MD ?? Date of Service: 06/23/24 ?? Procedure(s): US breast ndl core biopsy RT ?? Accession Number(s): [id number] ? cc: Tim Cifuentes MD; Name,Martín MARKS [...] DD/ 0900 ? TD/TT: 06/23/24 0945 ? Mica Machine Operator: ? Procedure Note Willow, Image - 06/25/2024 [facility] [address] [place], [place] [address] Ultrasound Report Signed with Aguilaenda Patient: Wendie Faye MMR #: [id number] : 3Acct:[id number] Age/Sex: 73 / FADM Date: 06/23/24 Loc: HO.MAMMO Attending Dr: Tim Cifuentes MD Ordering Physician: Tim Cifuentes MD Date of Service: 06/23/24 Procedure(s): US breast ndl core biopsy RT Accession Number(s): [id number] cc: Tim Cifuentes MD; Name,Martín MAKRS ADDENDUM ADDENDUM #1 ADDENDUM: Right breast mass [...] 06/23/24 1030 DD/ 0900 TD/TT: 06/23/24 0945 Mica Machine Operator: [facility] External Provider IMG US PROCEDURES Edited Result - Final * BI Mammogram Diagnostic Tomosynthesis Right (06/23/2024 9:00 AM EST) Anatomical Region Laterality Modality Breast Right Mammography 06/23/2024 9:00 AM EST Narrative 06/23/2024 10:34 AM EST ? [facility] ? [address] ?[place] [address] ? Mammography Report ? Signed with Addenda ? Patient: Raimundo Abdalla,Eduarda ?MR ?? #: [id number] ? : 1950 ?Acct:[id number] ? Age/Sex: 73 / F ?ADM Date: 02/05/25 ? Loc: HO.MAMMO ? Attending Dr: Tim Cifuentes MD ? Ordering Physician: Tim Cifuentes MD ?Results: ? Date of Service: 06/23/24 ?Follow Up: ? Procedure(s): MM tomosynthesis diagnostic RT ?? Accession Number(s): [id number] ? cc: Tim Cifuentes MD; Martín Pittman [...] DD/ 0900 ? TD/TT: 06/23/24 0945 ? Mica Machine Operator: ? Procedure Note Willow, Image - 07/02/2024 [facility] [address] [place] [address] Mammography Report Signed with Addenda Patient: Wendie Faye MMR #: [id number] : 3Acct:[id number] Age/Sex: 73 / FADM Date: 06/23/24 Loc: RENÉ Attending Dr: Tim Cifuentes MD Ordering Physician: Tim Cifuentes MDResults: Date of Service: 06/23/24Follow Up: Procedure(s): MM tomosynthesis diagnostic RT Accession Number(s): [id number] cc: Tim Cifuentes MD; Name,Martín MARKS ADDENDUM [...] 06/23/24 1030 DD/ 0900 TD/TT: 06/23/24 0945 Mica Machine Operator: [facility] External Provider IMG BI PROCEDURES Edited Result - Final * BI US Breast Limited Right (05/25/2024 9:45 AM EST) Anatomical Region Laterality Modality Breast Right Ultrasound 05/25/2024 9:45 AM EST Narrative 05/25/2024 10:32 AM EST ? [facility] ? [address] ?[place] [address] ? Ultrasound Report ? Signed ? Patient: Raimundo Abdalla,Eduarda ?MR ?? #: [id number] ? : 1950 ?Acct:[id number] ? Age/Sex: 73 / F ?ADM Date: 05/25/24 ? Loc: HO.MAMMO ? Attending Dr: Martín Pittman MD ? Ordering Physician: Martín Pittman MD ?? Date of Service: 05/25/24 ?? Procedure(s): US breast RT limited mamm only ?? Accession Number(s): [id number] ? cc: Martín Pittman MD ? EXAMINATION: [...] DD/ 0945 ? TD/TT: 05/25/24 0957 ? Mica Machine Operator: ? Procedure Note Tajbarbelizabeth, Image - 05/25/2024 [facility] [address] [place] [address] Ultrasound Report Signed Patient: Wendie Faye MMR #: [id number] : 3Acct:[id number] Age/Sex: 73 / FADM Date: 05/25/24 Loc: HO.KLEVERO Attending Dr: Martín Pittman MD Ordering Physician: Martín Pittman MD Date of Service: 05/25/24 Procedure(s): US breast RT limited mamm only Accession Number(s): [id number] cc: Martín Pittman MD EXAMINATION: MM DIAGNOSTIC [...] 05/25/24 1030 DD/ 0945 TD/TT: 05/25/24 0957 Mica Machine Operator: us Martín Name MD DOMÍNGUEZ US PROCEDURES Edited Result - Final * BI Mammogram Diagnostic Tomosynthesis added right (05/25/2024 9:05 AM EST) Anatomical Region Laterality Modality Breast Left Mammography 05/25/2024 9:05 AM EST Narrative 05/25/2024 10:33 AM EST ? [facility] ? [address] [place] [address] ? Mammography Report ? Signed ? Patient: Raimundo Abdalla,Eduarda ?MR ?? #: [id number] ? : 1950 ?Acct:[id number] ? Age/Sex: 73 / F ?ADM Date: 05/25/24 ? Loc: HO.MAMMO ? Attending Dr: Martín Pittman MD ? Ordering Physician: Toya,Martín MARKS ?Results: 4Suspiciou ?? s Finding ? Date of Service: 05/25/24 ?Follow Up: Biopsy Recommend ?? ed ? Procedure(s): MM tomosynthesis added views R ?? Accession Number(s): [id number] ? cc: Name,Martín MARKS ? EXAMINATION: ?? MM DIAGNOSTIC DIGITAL BREAST [...] DD/ 0905 ? TD/TT: 05/25/24 0920 ? Mica Machine Operator: ? Procedure Note Willow, Courtney - 05/25/2024 [facility] [address] [place] [address] [place] [address] Mammography Report Signed Patient: Wendie Faye MMR #: [id number] : 3Acct:[id number] Age/Sex: 73 / FADM Date: 05/25/24 Loc: RENÉ Attending Macarena Pittman MD Ordering Physician: Martín Pittmanesults: 4Suspiciou s Finding Date of Service: 05/25/24Follow Up: Biopsy Recommend ed Procedure(s): MM tomosynthesis added views R Accession Number(s): [id number] cc: Name,Martín MARKS EXAMINATION: MM DIAGNOSTIC DIGITAL [...] 05/25/24 1030 DD/ 0905 TD/TT: 05/25/24 0920 Mica Machine Operator: Martín Pittman MD [facility] PROCEDURES Edited Result - Final * Hepatitis C Ab (05/10/2024 1:37 PM EST) Hepatitis C Antibody Nonreactive Nonreactive [facility] Comment:Antibodies to HCV no t detected; does not exclude early acuteHCV infection. 05/10/2024 1:37 PM EST 05/10/2024 4:01 PM EST Generic External Data Provider LAB BLOOD ORDERAB LES Final Result Performing Organization Address [facility] de Phone Number [facility] [address] [place] [phone] * HCV RNA BY PCR, QN RFX DARIN (05/10/2024 1:37 PM EST) [facility] HCV RNA PCR QN <15 NOT DETECTED NOT DETECTED IU/mL [facility] HCV RNA PCR QN <1.18 NOT DETECTED NOT DETECTED Log IU/mL [facility] HCV RNA COMMENT SEE NOTE [facility] Comment:For additional infor ashanti, please refer tohttp://education.Enova Systems/faq/RFL90d3(This link is being provided for informational/Educational purposes only.)THIS TEST WAS PERFORMED AT:[facility] [place] [phone] MCCLAIN MD HCV RNA GENOTYPE,LIPA TNP [facility] Comment:Test not indicated. 05/10/2024 1:37 PM EST 05/10/2024 4:01 PM EST Generic External Data Provider LAB BLOOD ORDERAB LES Final Result Performing Organization Address [facility] Co de Phone Number [facility] [address] [place] [phone] * Hepatitis C Antibody with Reflex to HCV, RNA, Quantitative, Real-Time PCR (05/10/2024 1:37 PM EST) [facility] Hepatitis C Antibody Nonreactive Nonreactive [facility] Comment:Antibodies to HCV no t detected; does not exclude early acuteHCV infection. Blood Venous blood specimen / Unknown 05/10/2024 1:37 PM EST 05/10/2024 4:01 PM EST us Martín Pittman MD LAB BLOOD ORDERABLES Final Resul t [facility] [address] [place] [address] [phone] * (ABNORMAL) Hm Colonoscopy (08/12/2023) Colonoscopy Abnormal(A ) Normal us Martín Pittman MD HEALTH MAINTENANCE Final Result * (ABNORMAL) Lipid Panel, Standard (07/24/2022 9:07 AM EST) Cholesterol, Total 206(H) <200 mg/dL [facility] [place] [facility] HDL Cholesterol 40(L) > OR = 50 mg/dL [facility] [place] [facility] Triglycerides 252(H) <150 mg/dL [facility] [place] [facility] Comment: If a non-fasting specimen was collected, consider repeat triglyceride testing on a fasting specimen if clinically indicated. Arian et al. J. of Clin. Lipidol. 2015;9:129-169. LDL Cholesterol 127(H) mg/dL (calc) [facility] [place] [facility] Comment: Reference range: <100 Desirable range <100 mg/dL for primary prevention; ?? <70 mg/dL for patients with CHD or diabetic patients with > or = 2 CHD risk factors. LDL-C is now calculated using the James-Jagruti calculation, which is a validated novel method providing better accuracy than the Friedewald equation in the estimation of LDL-C. James GREENWOOD et al. SHEREE. 2013;310(19): 7511-9245 (http://education.ShopPad/faq/NGT184) Chol/HDLC Ratio 5.2(H) <5.0 (calc) [facility] [place] [facility] Non-HDL Cholesterol 166(H) <130 mg/dL (calc) [facility] Comment: For patients with diabetes plus 1 major ASCVD risk factor, treating to a non-HDL-C goal of <100 mg/dL (LDL-C of <70 mg/dL) is considered a therapeutic option. Blood Venous blood specimen / Unknown 07/24/2022 9:07 AM EST 07/24/2022 9:08 AM EST Narrative [facility] - 07/24/2022 9:39 PM EST FASTING:NO FASTING: NO us Martín Name LAB BLOOD ORDERABLES Final Resul t [facility] [address] [facility], [place] [address] [facility] [address] [facility], ([address]) [place] [address] * Fecal immunochemical (07/15/2022) Fecal Immunoassay Test (External) Negative Stool Rectal contents / Unknown Historical Provider LAB BODY FLUIDS AND STOOL S ORDERABLES Final Result from Last 3 Months or Most Recently Relevant to Health Maintenance Insurance [facility] - [facility] Care Teams Turkish Rubber Relationship Specialty Start Date End Date Name, MD Martín [address] [place] [address] PCP - General Family Medicine 07/18/15
--- OUTSIDE RECORDS SUMMARY | 2024-07-16 12:39 | XMS_ITS | Encounter Summary ---
Author Organization [employer] [facility] Address [address] [facility] 7t [place] [address] Care Team Providers Care Continuous Mining Machine Company Miner Name Role Phone Name, Martín MARKS Primary Care Provider [phone] Encounter Details Date Type Department Care Team (Latest Contact Info) Description 07/26/2019 Abstract [facility] CONVERSIONS Dental, Provider, DDS Social History [...] Description 07/19/2024 4:00 PM EST Office Visit [facility] MEDICINE [address] [place] [address] NameMartín MD [address] [place] [address] 09/02/2024 2:00 PM EDT Office Visit [facility] ADULT DENTAL [address] [place] [address] Kasia Maldonado [address] [place] [address] documented as of this encounter Visit Diagnoses Not on filedocumented in this encounter Care Teams [employer] Mining Machine Company Miner Relationship Specialty Start Date End Date Martín Pittman MD [address] [place] [address] PCP - General Family Medicine 07/18/15 documented as of this encounter
--- OUTSIDE RECORDS SUMMARY | 2024-07-16 12:39 | XMS_ITS | Encounter Summary ---
Author Organization [employer] [facility] Address [address] [place] [address] 7t [place] [address] Care Team Providers Care Onion Tier Name Role Phone Name, Martín MARKS Primary Care Provider [phone] Reason for Visit * Reason Comments Med Refill Encounter Details Date Type Department Care Team (Late Contact Info) Description 07/26/2022 Refill [facility] MEDICINE [address] [place] [address] [phone] Name, MD Martín [address] [place] [address] [phone] Insomnia, unspecified type Social History Tobacco Use [...] Description 07/19/2024 4:00 PM EST Office Visit [facility] MEDICINE [address] [place] [address] [phone] Name, MD Martín [address] [place] [address] [phone] 09/02/2024 2:00 PM EDT Office Visit [facility] ADULT DENTAL [address] [place], [place] [phone] Kasia Maldonado [address] [place] [address] documented as of this encounter Visit Diagnoses Diagnosis Insomnia, unspecified type documented in this encounter Care Teams Onion Tier Relationship Specialty Start Date End Date Name, MD Martín [address] [place] [address] PCP - General Family Medicine 07/18/15 documented as of this encounter
--- OUTSIDE RECORDS SUMMARY | 2024-07-16 12:40 | XMS_ITS | Encounter Summary ---
Author Organization [employer] Address [address] [facility] 7t [place] [address] Care Team Providers Care Bilingual Office Assistant Name Role Phone Name, Martín MARKS Primary Care Provider [phone] Reason for Visit * Reason Onset Date Comments Med Refill 10/21/2022 Encounter Details Date Type Department Care Team ([facility] Contact Info) Description 10/21/2022 Refill [facility] MEDICINE [address] [place], [place] [phone] Name, MD Martín [address] [place] [address] Insomnia, unspecified type Social History Tobacco Use [...] Upcoming Encounters Date Type Department Care Team ([facility] Contact Info) Description 07/19/2024 4:00 PM EST Office Visit [facility] MEDICINE [address] [place] [address] Name, MD Martín [address] [place] [address] 09/02/2024 2:00 PM EDT Office Visit [facility] ADULT DENTAL [address] [place] [address] Kasia Maldonado [address] [place] [address] documented as of this encounter Visit Diagnoses Diagnosis Insomnia, unspecified type documented in this encounter Care Teams Bilingual Office Assistant Relationship Specialty Start Date End Date Name, MD Martín [address] [place] [address] PCP - General Family Medicine 07/18/15 documented as of this encounter
--- OUTSIDE RECORDS SUMMARY | 2024-07-16 12:40 | XMS_ITS | Encounter Summary ---
Author Organization [employer] Address [address] [facility] 7t [place] [address] Care Team Providers Care Records Management Technician Name Role Phone Name, Martín MARKS Primary Care Provider [phone] Reason for Visit * Reason Onset Date Comments ER Follow-up 07/14/2024 Encounter Details Date Type Department Care Team ([facility] st Contact Info) Description 07/14/2024 Telephone [facility] MEDICINE [address] [place], [place] [phone] Name, MD Martín [address] [place] [address] ER Follow-up Social History Tobacco Use Types [...] RN - 07/14/2024 8:21 AM EST No quality improvement manager needed as this technical report writer speaks Bahamian. Per notes pt seen for acute diverticulitis. Seen at outside ER in [facility] returned to Wendie Abdalla to triage below. Reports having appt with General surgeon on 07/23/24. Per pt was calling due to not being able to obtain Rx for medications at [facility] due to flying back home that same [...] ED visit on : Date: 07/12/24 Hospital: [facility] Emergency. Seen for: Abdominal Pain Symptomatic [...] Description 07/19/2024 4:00 PM EST Office Visit [facility] MEDICINE [address] [place] [address] Name, MD Martín [address] [place] [address] 09/02/2024 2:00 PM EDT Office Visit [facility] ADULT DENTAL [address] [place] [address] EricaKasia [address] [place] [address] documented as of this encounter Visit Diagnoses Not on filedocumented in this encounter Additional Health Concerns Assessment Noted Time PHQ-9 Depression Total Score: 22 024 11:54 AM EST documented as of this encounter Care Teams Records Management Technician Relationship Specialty Start Date End Date NameMartín MD [address] [place] [address] PCP - General Family Medicine 07/18/15 documented as of this encounter
--- OUTSIDE RECORDS SUMMARY | 2024-07-16 12:40 | XMS_ITS | Encounter Summary ---
Author Organization [employer] Address [address] [facility] 7t [place] [address] Care Team Providers Care Tetryl Blender Operator Name Role Phone Name, Martín MARKS Primary Care Provider [phone] Reason for Visit * Reason Comments Med Refill Encounter Details Date Type Department Care Team ([facility] st Contact Info) Description 04/09/2023 Refill [facility] MEDICINE [address] [place], [place] [phone] Name, MD Martín [address] [place] [address] Social History Tobacco Use Types Packs/Day Years [...] Description 07/19/2024 4:00 PM EST Office Visit [facility] MEDICINE [address] [place] [phone] Name, MD Martín [address] [place] [address] 09/02/2024 2:00 PM EDT Office Visit [facility] ADULT DENTAL [address] [place] [address] Kasia Maldonado [address] [place] [address] documented as of this encounter Visit Diagnoses Not on filedocumented in this encounter Care Teams Tetryl Blender Operator Relationship Specialty Start Date End Date Name, MD Martín [address] [place] [address] PCP - General Family Medicine 07/18/15 documented as of this encounter
--- OUTSIDE RECORDS SUMMARY | 2024-07-16 12:40 | XMS_ITS | Encounter Summary ---
Author Organization [employer] Address [address] [facility] 7t [place] [address] Care Team Providers Care Hospice Home Care Coordinator Name Role Phone Name, Martín MARKS Primary Care Provider Reason for Visit * Reason Onset Date Comments Med Refill 07/22/2023 Encounter Details Date Type Department Care Team ([facility] st Contact Info) Description 07/22/2023 Telephone [facility] MEDICINE [address] [place], [place] [phone] Name, MD Martín [address] [place] [address] Med Refill Social History Tobacco Use Types [...] MG tablet To be sent to: [facility]/pharmacy #[id number] [place] [address] documented in this encounter Plan of Treatment Upcoming Encounters Date Type Department Care Team (Late st Contact Info) Description 07/19/2024 4:00 PM EST Office Visit [facility] MEDICINE [address] [place] [address] Name, MD Martín [address] [place] [address] 09/02/2024 2:00 PM EDT Office Visit [facility] ADULT DENTAL [address] [place] [address] Kasia Maldonado [address] [place] [address] documented as of this encounter Visit Diagnoses Not on filedocumented in this encounter Care Teams Hospice Home Care Coordinator Relationship Specialty Start Date End Date Name, MD Martín [address] [place] [address] PCP - General Family Medicine 07/18/15 documented as of this encounter
--- OUTSIDE RECORDS SUMMARY | 2024-07-16 12:40 | XMS_ITS | Encounter Summary ---
Author Organization [employer] Address [address] [facility] 7t [place] [address] Care Team Providers Care Barrel Rifler Button Name Role Phone Name, Martín MARKS Primary Care Provider [phone] Reason for Visit * Reason Onset Date Comments chartprep 07/15/2024 Encounter Details Date Type Department Care Team (Late st Contact Info) Description 07/15/2024 Telephone [facility] MED & PEDS [address] [place], [place] [phone] Name, MD Martín [address] [place] [address] chartprep Social History Tobacco Use Types Packs/Day [...] Description 07/19/2024 4:00 PM EST Office Visit [facility] MEDICINE [address] [place] [address] NameMartín MD [address] [place] [address] 09/02/2024 2:00 PM EDT Office Visit [facility] ADULT DENTAL [address] [place] [address] Kasia Maldonado [address] [place] [address] documented as of this encounter Visit Diagnoses Not on filedocumented in this encounter Additional Health Concerns Assessment Noted Time PHQ-9 Depression Total Score: 22 024 11:54 AM EST documented as of this encounter Care Teams Barrel Rifler Button Relationship Specialty Start Date End Date NameMartín MD [address] [place] [address] PCP - General Family Medicine 07/18/15 documented as of this encounter
--- OUTSIDE RECORDS SUMMARY | 2024-07-16 12:40 | XMS_ITS | Encounter Summary ---
Author Organization [employer] Address 75 [facility] 7t [place] [address] Care Team Providers Care Opener Verifier Packer Customs Name Role Phone Name, Martín MARKS Primary Care Provider [phone] Reason for Visit * Reason Onset Date Comments Call Back Request 07/11/2023 Encounter Details Date Type Department Care Team ([facility] st Contact Info) Description 07/11/2023 Telephone [facility] MEDICINE [address] [place], [place] [phone] Name, MD Martín [address] [place] [address] Call Back Request Social History Tobacco Use [...] T/C to pt. For below message through iBoxPay id - [id number], pt. States she has already apt. For CT scan, pt. Is all set right now. Advised to give call to [facility] if any question or concerns. * Telephone Encounter - Sharon Langford - 07/11/2023 11:45 AM EST Tc from pt requesting order for ct scan on left hand stated talk with PCP about this please contactpt for clarifications. documented in this encounter Plan of Treatment Upcoming Encounters Date Type Department Care Team ([facility] st Contact Info) Description 07/19/2024 4:00 PM EST Office Visit [facility] MEDICINE [address] [place] [address] NameMartín MD [address] [place] [address] 09/02/2024 2:00 PM EDT Office Visit [facility] ADULT DENTAL [address] [place] [address] Kasia Maldonado [address] [place] [address] documented as of this encounter Visit Diagnoses Not on filedocumented in this encounter Care Teams Opener Verifier Packer Customs Relationship Specialty Start Date End Date NameMartín MD [address] [place] [address] PCP - General Family Medicine 07/18/15 documented as of this encounter
--- OUTSIDE RECORDS SUMMARY | 2024-07-16 12:40 | XMS_ITS | Encounter Summary ---
Author Organization [employer] Address 75 [facility] 7t [place] [address] Care Team Providers Care Cross Tie Tram Loader Name Role Phone Name, Martín MARKS Primary Care Provider [phone] Encounter Details Date Type Department Care Team (Late st Contact Info) Description 10/28/2022 Abstract [facility] MEDICINE [address] [place] [address] NameMartín MD [address] [place] [phone] Social History Tobacco Use Types Packs/Day Years [...] 07/19/2024 4:00 PM EST Office Visit [facility] MEDICINE [address] [place] [address] [phone] NameMartín MD [address] [place] [address] 09/02/2024 2:00 PM EDT Office Visit [facility] ADULT DENTAL [address] [place] [address] [phone] Kasia Maldonado [address] [place] [address] documented as of this encounter Visit Diagnoses Not on filedocumented in this encounter Care Teams Cross Tie Tram Loader Relationship Specialty Start Date End Date Name, MD Martín [address] [place] [address] PCP - General Family Medicine 07/18/15 documented as of this encounter
--- OUTSIDE RECORDS SUMMARY | 2024-07-16 12:40 | XMS_ITS | Encounter Summary ---
Author Organization [employer] Address 75 [facility] 7t [place] [address] Care Team Providers Care Kinesiotherapist Name Role Phone Name, Martín MARKS Primary Care Provider [phone] Reason for Visit * Reason Onset Date Comments Hospital Follow-up 04/12/2024 Encounter Details Date Type Department Care Team ([facility] st Contact Info) Description 04/12/2024 Telephone [facility] MEDICINE [address] [place], [place] [phone] Name, MD Martín [address] [place] [address] Hospital Follow-up Social History Tobacco Use Types [...] from pt requesting a HDF appt. Hospital: [facility] Date of admission: 04/07/24 Discharge date: 04/12/24 Diagnosed: intestinal infection *Send message to [place] [facility] Coordinators documented in this encounter Plan of Treatment Upcoming Encounters Date Type Department Care Team (Late st Contact Info) Description 07/19/2024 4:00 PM EST Office Visit [facility] MEDICINE [address] [place] [address] Martín Pittman MD [address] [place] [address] 09/02/2024 2:00 PM EDT Office Visit [facility] ADULT DENTAL [address] [place] [address] Kasia Maldonado [address] [place] [address] documented as of this encounter Visit Diagnoses Not on filedocumented in this encounter Additional Health Concerns Assessment Noted Time PHQ-9 Depression Total Score: 22 024 11:54 AM EST documented as of this encounter Care Teams Kinesiotherapist Relationship Specialty Start Date End Date NameMartín MD [address] [place] [address] PCP - General Family Medicine 07/18/15 documented as of this encounter
--- OUTSIDE RECORDS SUMMARY | 2024-07-16 12:40 | XMS_ITS | Encounter Summary ---
Author Organization [employer] Address 75 [facility] 7t [place] [address] Care Team Providers Care Rough Rib Grader Name Role Phone Name, Martín MARKS Primary Care Provider [phone] Encounter Details Date Type Department Care Team ([facility] st Contact Info) Description 03/07/2023 Orders Only [facility] [address] [place], [place] [phone] Geno Malave LPN Social History Tobacco Use [...] Description 07/19/2024 4:00 PM EST Office Visit [facility] MEDICINE [address] [place] [address] Name, MD Martín [address] [place] [address] 09/02/2024 2:00 PM EDT Office Visit [facility] ADULT DENTAL [address] [place] [address] Kasia Maldonado [address] [place] [address] documented as of this encounter Procedures Procedure Name Priority Date/Time Associated Diagnosis Comments BI MAMMOGRAM SCREENING TOMOSYNTHESIS BILATERAL Routine 03/11/2023 2:45 PM EDT documented in this encounter Results * BI Mammogram Screening Tomosynthesis Bilateral (03/11/2023 2:45 PM EDT) Anatomical Region Laterality Modality Breast Bilateral Mammography 03/11/2023 2:45 PM EDT Narrative 03/29/2023 1:32 PM EST ? [facility] [place] ? [address] [facility] ?[place] [address] ? Mammography Report ? Signed ? Patient: Raimundo Abdalla,Eduarda ?MR ?? #: [id number] ? : 1950 ?Acct:[id number] ? Age/Sex: 72 / F ?ADM Date: 10/24/23 ? Loc: HO.MAMMO ? Attending : Martín Pittman MD ? Ordering Physician: Toya,Martín MARKS ?Results: 1Negative ? Date of Service: 03/11/23 ?Follow Up: 1 Year From Orig ?? inal Mammogram ? Procedure(s): MM tomosynthesis screening BI ?? Accession Number(s): [id number] ? cc: Toya,Martín MARKS ? EXAMINATION: ?? [...] ? DD/DT: 03/11/ 1445 ? TD/TT: ? Dukey Rider: ? Procedure Note Donotuseinterpreter, Image - 03/29/2023 [facility] [address] [place] [address] [place] [address] Mammography Report Signed Patient: Wendie Faye MMR #: [id number] : 3Acct:[id number] Age/Sex: 72 / FADM Date: 03/11/23 Loc: HO.MAMMO Attending Dr: Martín Pittman MD Ordering Physician: Martín Pittman MDResults: 1Negative Date of Service: 03/11/23Follow Up: 1 Year From Orig inal Mammogram Procedure(s): MM tomosynthesis screening BI Accession Number(s): [id number] cc: Martín Pittman MD EXAMINATION: MM SCREENING [...] in OV> 03/29/23 1329 DD/ 1445 TD/TT: Dukey Rider: Martín Pittman MD IMG BI PROCEDURES Edited Result - Final documented in this encounter Visit Diagnoses Not on filedocumented in this encounter Care Teams Rough Rib Grader Relationship Specialty Start Date End Date Name, MD Martín [address] [place] [address] PCP - General Family Medicine 07/18/15 documented as of this encounter
--- OUTSIDE RECORDS SUMMARY | 2024-07-16 12:40 | XMS_ITS | Encounter Summary ---
Author Organization [employer] Address 75 [facility] 7t [place] [address] Care Team Providers Care Geothermal Technician Name Role Phone Name, Martín MARKS Primary Care Provider [phone] Reason for Visit * Reason Comments Med Refill Encounter Details Date Type Department Care Team ([facility] st Contact Info) Description 01/21/2024 Refill [facility] MEDICINE [address] [place], [place] [phone] Name, MD Martín [address] [place] [address] Insomnia, unspecified type Social History Tobacco Use [...] 4:00 PM EST Office Visit [facility] MEDICINE [address] [place] [address] NameMartín MD [address] [place] [address] 09/02/2024 2:00 PM EDT Office Visit [facility] ADULT DENTAL [address] [place] [address] Erica, Kasia [address] [place] [address] documented as of this encounter Visit Diagnoses Diagnosis Insomnia, unspecified type documented in this encounter Additional Health Concerns Assessment Noted Time PHQ-9 Depression Total Score: 10 024 1:21 PM EDT documented as of this encounter Care Teams Geothermal Technician Relationship Specialty Start Date End Date Name, MD Martín [address] [place] [address] PCP - General Family Medicine 07/18/15 documented as of this encounter
--- OUTSIDE RECORDS SUMMARY | 2024-07-16 12:40 | XMS_ITS | Encounter Summary ---
Author Organization [employer] [facility] Address 75 [facility] 7t [place] [address] Care Team Providers Care Dress Designer Name Role Phone Name, Martín MARKS Primary Care Provider [phone] Reason for Visit * Reason Comments Med Refill Encounter Details Date Type Department Care Team (Late st Contact Info) Description 09/25/2022 Refill [facility] MEDICINE [address] [place] [address] Name, MD Martín [address] [place] [address] [phone] Insomnia, unspecified type Social History Tobacco Use [...] Description 07/19/2024 4:00 PM EST Office Visit [facility] MEDICINE [address] [place] [address] [phone] Name, MD Martín [address] [place] [address] 09/02/2024 2:00 PM EDT Office Visit [facility] ADULT DENTAL [address] [place] [address] Kasia Maldonado [address] [place] [address] documented as of this encounter Visit Diagnoses Diagnosis Insomnia, unspecified type documented in this encounter Care Teams Dress Designer Relationship Specialty Start Date End Date Name, MD Martín [address] [place] [address] PCP - General Family Medicine 07/18/15 documented as of this encounter
--- OUTSIDE RECORDS SUMMARY | 2024-07-16 12:40 | XMS_ITS | Encounter Summary ---
Author Organization [employer] Address 75 [facility] 7t [place] [address] Care Team Providers Care Recruiter Account Manager Name Role Phone Name, Martín MARKS Primary Care Provider [phone] Encounter Details Date Type Department Care Team (Late st Contact Info) Description 06/23/2024 Orders Only [facility] External Provider, [facility] Social History Tobacco Use Types Packs/Day [...] 07/19/2024 4:00 PM EST Office Visit [facility] MEDICINE [address] [place] [address] Name, MD Martín [address] [place] [address] 09/02/2024 2:00 PM EDT Office Visit [facility] ADULT DENTAL [address] [place] [address] Kasia Maldonado [address] [place] [address] documented as of this encounter Procedures Procedure [...] 9:33 AM EST 06/23/2024 12:00 PM EST [facility] LABS - 06/24/2024 12:21 PM EST ----- ------- Name: Wendie Faye ?Age/Sex: 73/F ? : 1950 Unit#: [id number] ?? Attend Dr: Tim Cifuentes MD ?Re06/23/24 ?Status: DEP REF ? Location: HO.MAMMO ?Disch: ? ----- ------- SPEC : [id number] ?RECD: 06/23/24-1200 ? STATUS: ??SOUT ? REQ NUM: [id number] ? MADHAV: 06/23/241667 ? SUBM DR: Reina Rod DO ? ENTERED: ??06/23/24-5315 ?SP TYPE: Surgical ? OTHR DR: Tim [...] Copies To: ?? Tim Cifuentes MD ?? [facility] General Surgeons ?? [address] [facility] ?? [place] [address] ?? [phone] ?? Name,Martín MARKS ?? [address] [facility] ?? [place] [address] ?? [phone] ? CONTINUED ON NEXT PAGE ----- ------- Name: Wendie Faye ?Age/Sex: 73/F ? : 1950 Unit#: [id number] ?? Attend Dr: Tim Cifuentes MD ?Re06/23/24 ?Status: DEP REF ? Location: HO.MAMMO ?Disch: ? ----- ------- SPEC : [id number] ?RECD: 06/23/24-1199 ? STATUS: ??SOUT ? REQ NUM: [id number] ? MADHAV: 06/23/24 ? SUBM DR: Reina Rod DO ? ENTERED: ??06/23/24-4307 ?SP TYPE: Surgical ? OTHR DR: Tim Cifuentes MD ?Name,Martín MARKS ORDERED: ??HE Stain/2, Gross Micro L4 ? COMMENTS: As per the specimen requisition slip the specimen is ?collected at 0933 and placed in formalin at 0940. Copies To: ??(Continued) ?? Reina Rod DO ?? [address] ?? [place] [address] ?? [phone] ----- ------- Signed (signature on file) Catia Marshall 06/24/24 1221 ? ----- ------- ? END OF REPORT ? us Generic External Data Provider LAB BLOOD ORDERAB LES Final Result [facility]S [address] [place] [address] [phone] * US BREAST NDL CORE BIOPSY RT (06/23/2024 9:00 AM EST) Anatomical Region Laterality Modality Abdomen Ultrasound 06/23/2024 9:00 AM EST Narrative 06/23/2024 10:34 AM EST ? [facility] ? [address] ?[place] [address] ? Ultrasound Report ? Signed with Addenda ? Patient: Raimundo Abdalla,Eduarda ?MR ?? #: [id number] ? : 1950 ?Acct:[id number] ? Age/Sex: 73 / F ?ADM Date: 06/23/24 ? Loc: HO.MAMMO ? Attending Dr: Tim Cifuentes MD ? Ordering Physician: Tim Cifuentes MD ?? Date of Service: 06/23/24 ?? Procedure(s): US breast ndl core biopsy RT ?? Accession Number(s): [id number] ? cc: Tim Cifuentes MD; Name,Martín MARKS [...] DD/ 0900 ? TD/TT: 06/23/24 0945 ? Weigher Operator: ? Procedure Note Donteresitater, Image - 06/25/2024 [facility] [address] [place] [address] Ultrasound Report Signed with Addenda Patient: Wendie Faye MMR #: [id number] : 3Acct:[id number] Age/Sex: 73 / FADM Date: 06/23/24 Loc: RENÉ Attending Dr: Tim Cifuentes MD Ordering Physician: Tim Cifuentes MD Date of Service: 06/23/24 Procedure(s): US breast ndl core biopsy RT Accession Number(s): [id number] cc: Tim Cifuentes MD; Name,Martín MARKS ADDENDUM ADDENDUM #1 ADDENDUM: Right breast mass 1:00 ultrasound-guided core needle biopsy: Scan benign breast tissue with fibroadenomatous changes. Benign and concordant. Recommend return to annual screening. OVERALL ASSESSMENT: BI-RADS 1 - Negative RECOMMENDATION: 1 year F/U Electronically signed by: eRina Rod DO 06/25/2024 11:13 AM EST RP [...] 06/23/24 1030 DD/ 0900 TD/TT: 06/23/24 0945 Weigher Operator: [facility] External Provider IMG US PROCEDURES Edited Result - Final * BI Mammogram Diagnostic Tomosynthesis Right (06/23/2024 9:00 AM EST) Anatomical Region Laterality Modality Breast Right Mammography 06/23/2024 9:00 AM EST Narrative 06/23/2024 10:34 AM EST ? [facility] [place] ? [address] ?[place] [address] ? Mammography Report ? Signed with Addenda ? Patient: Wendie Faye ?MR ?? #: [id number] ? : 1950 ?Acct:[id number] ? Age/Sex: 73 / F ?ADM Date: 06/23/ ? Loc: HO.MAMMO ? Attending Dr: Tim Cifuentes MD ? Ordering Physician: Tim Cifuentes MD ?Results: ? Date of Service: // ?Follow Up: ? Procedure(s): MM tomosynthesis diagnostic RT ?? Accession Number(s): [id number] ? cc: Tim Cifuentes MD; Martín Pittman [...] ? DD/ 0900 ? TD/TT: 06/23/2445 ? Weigher Operator: ? Procedure Note Donotbarbinterpreter, Image - 07/02/2024 [facility] [address] [place], [place] [address] Mammography Report Signed with Addenda Patient: Wendie Faye MMR #: [id number] : 1950cct:[id number] Age/Sex: 73 / FADM Date: 06/23/24 Loc: HO.MAMMO Attending Dr: Tim Cifuentes MD Ordering Physician: Tim Cifuentesesults: Date of Service: 06/23/24Follow Up: Procedure(s): MM tomosynthesis diagnostic RT Accession Number(s): [id number] cc: Tim Cifuentes MD; Name,Martín MARKS ADDENDUM [...] 06/23/24 1030 DD/ 0900 TD/TT: 06/23/24 0945 Weigher Operator: [facility] External Provider IMG BI PROCEDURES Edited Result - Final documented in this encounter Visit Diagnoses Not on filedocumented in this encounter Additional Health Concerns Assessment Noted Time PHQ-9 Depression Total Score: 22 04/06/ 024 11:54 AM EST documented as of this encounter Care Teams Recruiter Account Manager Relationship Specialty Start Date End Date Name, MD Martín [address] [place] [address] PCP - General Family Medicine 07/18/15 documented as of this encounter
--- OUTSIDE RECORDS SUMMARY | 2024-07-16 12:40 | XMS_ITS | Encounter Summary ---
Author Organization [employer] Address 75 [facility] 7t [place] [address] Care Team Providers Care Opera Singer Name Role Phone Name, Martín MARKS Primary Care Provider [phone] Reason for Visit * Reason Onset Date Comments Med Refill 06/21/2024 Encounter Details Date Type Department Care Team (Late st Contact Info) Description 06/21/2024 Refill [facility] MEDICINE [address] [place], [place] [phone] Name, MD Martín [address] [place] [address] Insomnia, unspecified type Social History Tobacco Use [...] Malave LPN - 06/21/2024 2:29 PM EST PROCESSING TECHNICIAN checked on 06/21/24. Next appointment 07/19/24. * Telephone Encounter - Himanshu Kerns - 06/21/2024 2:00 PM EST TC from pt requesting medication refill. Medications needing refill : zolpidem (Ambien) 10 MG tablet To be sent to: [facility]/pharmacy #[id number] documented in this encounter Plan of Treatment Upcoming Encounters Date Type Department Care Team (Late st Contact Info) Description 07/19/2024 4:00 PM EST Office Visit [facility] MEDICINE [address] [place], [place] [phone] Name, MD Martín [address] [place], [place] [phone] 09/02/2024 2:00 PM EDT Office Visit [facility] ADULT DENTAL [address] [place], [place] [phone] Kasia Maldonado [address] [place], [place] [phone] documented as of this encounter Visit Diagnoses Diagnosis Insomnia, unspecified type documented in this encounter Additional Health Concerns Assessment Noted Time PHQ-9 Depression Total Score: 22 024 11:54 AM EST documented as of this encounter Care Teams Opera Singer Relationship Specialty Start Date End Date Name, MD Martín [address] [place] [address] PCP - General Family Medicine 07/18/15 documented as of this encounter
--- OUTSIDE RECORDS SUMMARY | 2024-07-16 12:40 | XMS_ITS | Encounter Summary ---
Author Organization [employer] Address 75 [facility] 7t [place] [address] Care Team Providers Care Offset Plate Maker Name Role Phone Name, Martín MARKS Primary Care Provider [phone] Reason for Visit * Reason Comments Med Refill Encounter Details Date Type Department Care Team ([facility] st Contact Info) Description 05/24/2023 Refill [facility] MEDICINE [address] [place], [place] [phone] Name, MD Martín [address] [place] [address] Allergic rhinitis, unspecified seasonality, unspecified trigger Social [...] PM EST Office Visit [facility] MEDICINE [address] [place] [address] Name, MD Martín [address] [place] [address] 09/02/2024 2:00 PM EDT Office Visit [facility] ADULT DENTAL [address] [place] [address] Kasia Maldonado [address] [place] [address] documented as of this encounter Visit Diagnoses Diagnosis Allergic rhinitis, unspecified seasonality, unspecified trigger documented in this encounter Care Teams Offset Plate Maker Relationship Specialty Start Date End Date NameMartín MD [address] [place] [address] PCP - General Family Medicine 07/18/15 documented as of this encounter
--- OUTSIDE RECORDS SUMMARY | 2024-07-16 12:40 | XMS_ITS | Encounter Summary ---
Author Organization [employer] Address 75 [facility] 7t [place] [address] Care Team Providers Care Chemical Equipment Repairer Name Role Phone Name, Martín MARKS Primary Care Provider Encounter Details Date Type Department Care Team ([facility] st Contact Info) Description 03/25/2023 Orders Only [facility] MEDICINE [address] [place], [place] [phone] Name, MD Martín [address] [place] [address] Social History Tobacco Use Types Packs/Day Years [...] Description 07/19/2024 4:00 PM EST Office Visit [facility] MEDICINE [address] [place] [address] Name, MD Martín [address] [place] [address] 09/02/2024 2:00 PM EDT Office Visit [facility] ADULT DENTAL [address] [place] [address] Kasia Maldonado [address] [place] [address] documented as of this encounter Visit Diagnoses Not on filedocumented in this encounter Care Teams Chemical Equipment Repairer Relationship Specialty Start Date End Date Name, MD Martín [address] [place] [address] PCP - General Family Medicine 07/18/15 documented as of this encounter
== END 2024-07-15 10:59 | disposition home or self-care (01) ==
LOC: HO.HOSX 10:58
PROVIDERS: Visit Provider Physician Assistant
DX: M17.11 Unilateral primary osteoarthritis, right knee (principal); M25.561 Pain in right knee
CPT/HCPCS: 20610; 73562; 99212; J1010; J2003

== ENCOUNTER 2024-07-15 14:02 | Outpatient (AMB) | payer OTHER, SELFPAY ==
--- NOTE | 2024-07-15 14:47 | A.OFFVIS_ITS ---
Vital Signs 07/15/24 14:56 Height 4 ft 11 in Weight 148 lb BMI 29.9 Intake Visit Reasons: OV - Right Knee OA - Last Injection 10/08/21 Intake Note: Wendie is a 73 year old female who presents today for a follow up of her Right Knee OA, last B/L knee injections 10/08/21. Patient reports last injection provided her with relief. Currently she has constant pain in her knee that travels up her leg into her groin area. States symptoms presented about 2 weeks ago. Denies injury. No numbness or tingling. Finds no relief with Tylenol and she is unable to take NSAID's due to a fatty liver. States she would like to repeat injection if it will help with her pain. Components Engineer Required: Yes Components Engineer Services: Components Engineer Present Components Engineer Name: Tita [id number] Allergies No Known Allergies Allergy (Verified 07/15/24 14:49) HPI HPI OV - Right Knee OA - Last Injection 10/08/21: Details: Ms. Raimundo Abdalla this is a 73-year-old female who presents to the office today for evaluation of right knee and right groin pain. Pain has been persistent for the past 2 weeks. Denies any new injury or trauma. [facility] Medical History Breast mass, right Diverticular disease Acute diverticulitis Left hand pain Hospital discharge follow-up Hypertension Syncope and collapse Right knee pain Tendonitis Arthritis Surgical History Status post hardware removal Hx of colonoscopy History of hand surgery Family History Mother Alzheimer disease Hypertension Dementia Father Hypertension Social History Household Members: None Housing: House Do you presently have visiting nurse or other home services: Yes Alcohol intake: never Comment: pt refused bed alarm Patient Tobacco Use Status: Never used Tobacco e-Cigarette/Vaping Use: Never Used service: No Current occupational status: retired Current occupation: rt handed Review of Systems Const All systems reviewed & are unremarkable except as noted in HPI and below Physical Exam Vital Signs: BMI result Body Mass Index 29.9 Const General: cooperative, healthy appearing and no acute distress Resp Effort & Inspection: normal respiratory effort and able to speak in complete sentences Cardio Rate: regular rate Peripheral pulses: Peripheral pulses 2+ throughout Skin Lesions: no lesions Rashes: no rashes Extrem Other: Right knee normal to inspection no ecchymosis, erythema or joint effusion. Full knee range of motion. Tenderness to palpation lateral joint line. NVI. Right hip: Normal to inspection. No ecchymosis, erythema, or edema. Full hip ROM in all planes. Groin pain reported with internal external rotation. No tenderness to palpation over the greater trochanteric bursa. Able to perform straight leg raise. NVI. Office Procedures AMB Joint Injection/Aspiration Joint Injection/Aspiration Primary Site: right knee Prep: site was prepped using aseptic technique, ethochloride spray was applied and injection warnings given Injected: 80 mg of, DepoMedrol, with 8 mL of (2% plain lido ) and in the joint Approach Used: anterolateral Procedure: The patient tolerated the procedure well, but had some pain with the injection and there was some relief with the local anesthesia Coding 02609 - Large joint Procedure code (CPT) selection complete Assessment & Plan Assessment & Plan (1) Osteoarthritis of right knee: Code(s): M17.11 - Unilateral primary osteoarthritis, right knee Category: Medical (2) Osteoarthritis of right hip: Code(s): M16.11 - Unilateral primary osteoarthritis, right hip Category: Medical Plan The patient was offered a cortisone injection in the right knee with 80 mg of DepoMedrol. The patient was explained the risks, benefits, and alternatives to receiving this injection. After receiving consent for the injection, the patient had the procedure done while in the office today. The patient tolerated the procedure well. After the injection the patient did have some lightheadedness. She was encouraged to stay in our office until this past. In regards to the patient's right hip she will continue to take anti- inflammatories and hopefully with the help of the cortisone injection of the right knee this will resolve on its own. If not the patient will schedule a formal follow-up appointment for evaluation of right hip pain. I was able to review x-rays that were obtained on 03/02/2024 of the right hip which did reveal osteoarthritis. Follow-up will be p.r.n., or sooner if needed Orders: Orders XR knee LT 1V Today M25.569 - Pain in unspecified knee XR knee RT 3V Today M25.569 - Pain in unspecified knee Coding Level of Care Code Est Pt Level 3 (66202) Diagnoses Osteoarthritis of right knee M17.11 Osteoarthritis of right hip M16.11 CPT Codes Coding - 84260 Large joint: 59094 - Large joint ([id number])
[2024-07-15 14:56] VITALS: BMI 29.9
--- OUTSIDE RECORDS SUMMARY | 2024-07-15 16:57 | XMS_ITS | Encounter Summary ---
Author Organization [facility] Address [address] [place] [address] 7[address] [place] [address] Care Team Providers Care Qa Software Tester Name Role Phone Name, Martín MARKS Primary Care Provider [phone] Reason for Visit * Reason Comments Med Refill Encounter Details Date Type Department Care Team (Late Contact Info) Description 07/26/2022 Refill [facility] MEDICINE [address] [place] [address] [phone] Name, MD Martín [address] [place] [address] [phone] Insomnia, unspecified type Social History Tobacco Use [...] Encounters Date Type Department Care Team (Late Contact Info) Description 07/19/2024 4:00 PM EST Office Visit [facility] MEDICINE [address] [place] [address] [phone] Name, MD Martín [address] [place] [address] [phone] 09/02/2024 2:00 PM EDT Office Visit [facility] ADULT DENTAL [address] [place], [place] [phone] Kasia Maldonado [address] [place] [address] documented as of this encounter Visit Diagnoses Diagnosis Insomnia, unspecified type documented in this encounter Care Teams Qa Software Tester Relationship Specialty Start Date End Date Name, MD Martín [address] [place] [address] PCP - General Family Medicine 07/18/15 documented as of this encounter
--- OUTSIDE RECORDS SUMMARY | 2024-07-15 16:57 | XMS_ITS | Encounter Summary ---
Author Organization [facility] Address [address] [facility] [address]t [place] [address] Care Team Providers Care Student Services Rep Name Role Phone Name, Martín MARKS Primary Care Provider [phone] Encounter Details Date Type Department Care Team (Latest Contact Info) Description 11/06/[address] [facility] CONVERSIONS Dental, Provider, DDS Social History [...] Care Team (Late st Contact Info) Description 07/19/2024 4:00 PM EST Office Visit [facility] MEDICINE [address] [place] [phone] NameMartín MD [address] [place] [address] 09/02/2024 2:00 PM EDT Office Visit [facility] ADULT DENTAL [address] [place] [address] Kasia Maldonado [address] [place] [address] documented as of this encounter Visit Diagnoses Not on filedocumented in this encounter Care Teams Student Services Rep Relationship Specialty Start Date End Date Martín Pittman MD [address] [place] [phone] PCP - General Family Medicine 07/18/15 documented as of this encounter
--- OUTSIDE RECORDS SUMMARY | 2024-07-15 16:57 | XMS_ITS | Encounter Summary ---
Author Organization [facility] Address [address] [facility] 7t [place] [address] Care Team Providers Care Pst Manager Name Role Phone Name, Martín MARKS Primary Care Provider [phone] Reason for Visit * Reason Comments Med Refill Encounter Details Date Type Department Care Team (Late st Contact Info) Description 09/25/2022 Refill [facility] MEDICINE [address] [place] [phone] Name, MD Martín [address] [place] [address] [phone] Insomnia, unspecified type Social History Tobacco Use [...] Description 07/19/2024 4:00 PM EST Office Visit [facility] MEDICINE [address] [place] [address] [phone] Name, MD Martín [address] [place] [phone] 09/02/2024 2:00 PM EDT Office Visit [facility] ADULT DENTAL [address] [place] [address] Kasia Maldonado [address] [place] [address] documented as of this encounter Visit Diagnoses Diagnosis Insomnia, unspecified type documented in this encounter Care Teams Pst Manager Relationship Specialty Start Date End Date Name, MD Martín [address] [place] [address] PCP - General Family Medicine 07/18/15 documented as of this encounter
--- OUTSIDE RECORDS SUMMARY | 2024-07-15 16:57 | XMS_ITS | Clinical Summary ---
Author Organization [employer] Address [address] [facility] 7[address] [place] [address] Care Team Providers Care Crutcher Helper Name Role Phone Name, Martín MARKS Primary Care Provider [phone] Allergies No known active allergies Medications atorvastatin [...] discharge follow-up 03/02/2024 Overview (03/02/2024): D/C from [facility]--readmitted to x 1 day-biotics discharge p.o. antibiotics [...] Encounters Date Type Department Care Team Description 07/15/2024 Telephone [facility] MED & PEDS [address] [place] [address] Martín Pittman MD chartprep 07/14/2024 Telephone [facility] MEDICINE [address] [place] [address] Martín Pittman MD ER Follow-up 06/23/2024 Orders Only [facility] External Provider, [facility] 06/21/2024 Refill [facility] MED[facility] [address] [place] [address] Martín Pittman MD Insomnia, unspecified type 05/25/2024 Telephone [facility] [address] [place] [phone] Lupe Cosme, RN 05/20/2024 Refill [facility] [address] [place] [phone] Martín Pittman MD Insomnia, unspecified type 05/17/[address] [address] Marcelle Jeter [place] feb recalls 05/14/2024 Telephone [facility] MED[facility] [address] [place] [address] Lupe Cosme, RN 05/10/2024 1:00 PM EST Office Visit [facility] [address] [place] [phone] Martín Pittman MD Positive hepatitis C antibody test (Primary Dx); Diverticulitis 05/10/2024 Orders Only GENERIC EXTERNAL DATA DEPARTMENT Provider, Generic External Data 04/23/[address] [address] Name, MD Martín No Show 04/20/2024 Refill [facility] [address] [place] [phone] Name, MD Martín Insomnia, unspecified type 04/14/2024 Telephone [facility] [address] [facility] [place] [phone] Lydia Mckeon MA chartprep from Last 3 Months Immunizations Name Administration [...] is your housing situation today? I have solangejacobo kennedy 09/15/[address] you [...] Description 07/19/2024 4:00 PM EST Office Visit [facility] MEDICINE [address] [place] [address] Name, MD Martín [address] [place] [address] 09/02/2024 2:00 PM EDT Office Visit [facility] ADULT DENTAL [address] [place] [address] Kasia Maldonado [address] [place] [address] Health Maintenance Due Date Last Done Comments [...] 04/06/2025 04/06/2024 Depression Screening 04/06/2025 04/06/2024, 04/06/20 24 Tobacco Screening 05/10/2025 05/10/2024 DTaP/Tdap/Td Vaccines (2 - Td or Tdap) 03/27/2026 03/27/2016 Mammogram 06/23/2026 06/23/2024, 01/0 11/2024, 03/30/2024, Additional history exists Lipid Panel 07/25/2027 07/24/2022, [...] Procedure Name Priority Date/Time Associated Diagnosis Comments HEMATOXYLIN AND EOSIN STAIN Routine 06/23/2024 9:33 AM EST US BREAST NDL CORE BIOPSY RT Routine 06/23/2024 9:00 AM EST BI MAMMOGRAM DIAGNOSTIC TOMOSYNTHESIS RIGHT Routine 06/23/2024 9:00 AM EST BI US BREAST LIMITED RIGHT Routine 05/25/2024 9:45 AM EST BI MAMMOGRAM DIAGNOSTIC TOMOSYNTHESIS ADDED VIEW RIGHT Routine 05/25/2024 9:05 AM EST HEPATITIS C ANTIBODY Routine 05/10/2024 1:37 PM EST HCV RNA BY PCR, QN RFX DARIN Routine 05/10/2024 1:37 PM EST HEPATITIS C AB W/REFL TO HCV RNA, QN, PCR Routine 05/10/2024 1:37 PM EST Positive hepatitis C antibody test PROPHYLAXIS - ADULT Routine 01/01/2024 9 :00 [...] Recently Relevant to Health Maintenance Results * Hematoxylin and Eosin Stain (06/23/2024 9:33 AM EST) 06/23/2024 9:33 AM EST 06/23/2024 12:00 PM EST Narrative [facility] - 06/24/2024 12:21 PM EST ----- ------- Name: Wendie Faye ?Age/Sex: 73/F ? : 1950 Unit#: [id number] ?? Attend Dr: Tim Cifuentes MD ?Re06/23/24 ?Status: DEP REF ? Location: HO.MAMMO ?Disch: ? ----- ------- SPEC : [id number] ?RECD: 06/23/24-1199 ? STATUS: ??SOUT ? REQ NUM: [id number] ? MADHAV: 06/23/24 ? SUBM DR: Reina Rod DO ? ENTERED: ??06/23/24 ?SP TYPE: Surgical ? OTHR DR: Tim Cifuentes MD ?Name,Martín MARKS ORDERED: ??HE Stain/2, Gross Micro L4 ? COMMENTS: As per the specimen requisition slip the specimen is ?collected at 0933 and placed in formalin at 0940. ? Diagnosis ?? 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 ? Comment: ??Clinical and imaging correlation are necessary. ?Clinical History Right breast mass 1 o'clock ? Ca ?Microscopic Description Microscopic sections reviewed. ? Material Received ?? Right breast mass 1 o'clock ? Ca ? Gross Description Received in formalin labeled ?right breast mass 1 o'clock? are 4 pale, cat-white and cat- pink cylindrical portions of tissue ranging from 0.25-0.6 cm in greatest dimension, submitted in toto in a cassette labeled A. CEDS This case was reviewed intradepartmentally. Copies To: ?? Tim Cifuentes MD ?? [facility] General Surgeons ?? [address] [facility] ?? [place] [address] ?? [phone] ?? Name,Martín MARKS ?? [address] [facility] ?? [place] [address] ?? [phone] ? CONTINUED ON NEXT PAGE ----- ------- Name: Wendie Faye ?Age/Sex: 73/F ? : 1950 Unit#: [id number] ?? Attend Dr: Tim Cifuentes MD ?Re06/23/24 ?Status: DEP REF ? Location: HO.MAMMO ?Disch: ? ----- ------- SPEC : [id number] ?RECD: 06/23/24-1200 ? STATUS: ??SOUT ? REQ NUM: [id number] ? MADHAV: 06/23/24-932 ? SUBM DR: Reina Rod DO ? ENTERED: ??06/23/24-1206 ?SP TYPE: Surgical ? OTHR DR: Tim Cifuentes MD ?Name,Martín MARKS ORDERED: ??HE Stain/2, Gross Micro L4 ? COMMENTS: As per the specimen requisition slip the specimen is ?collected at 0933 and placed in formalin at 0940. Copies To: ??(Continued) ?? Reina Rod DO ?? [address] [facility] ?? [place] [address] ?? [phone] ----- ------- Signed (signature on file) Catia Marshall 06/24/24 1221 ? ----- ------- ? END OF REPORT ? us Generic External Data Provider LAB BLOOD ORDERAB LES Final Result [facility] [address] [place] [address] [phone] * US BREAST NDL CORE BIOPSY RT (06/23/2024 9:00 AM EST) Anatomical Region Laterality Modality Abdomen Ultrasound 06/23/2024 9:00 AM EST Narrative 06/23/2024 10:34 AM EST ? [facility] ? [address] ?[place] [address] ? Ultrasound Report ? Signed with Addenda ? Patient: Raimundo Abdalla,Eduarda ?MR ?? #: [id number] ? : 1950 ?Acct:[id number] ? Age/Sex: 73 / F ?ADM Date: 06/23/24 ? Loc: HO.MAMMO ? Attending Dr: Tim Cifuentes MD ? Ordering Physician: Tim Cifuentes MD ?? Date of Service: 06/23/24 ?? Procedure(s): US breast ndl core biopsy RT ?? Accession Number(s): [id number] ? cc: Tim Cifuentes MD; NameMartín MD ?ADDENDUM ? ADDENDUM #1 ? ADDENDUM: ?? Right breast mass 1:00 ultrasound-guided core needle biopsy: Scan ?? benign breast tissue with fibroadenomatous changes. Benign and ?? concordant. ?? Recommend return to annual screening. ? OVERALL ASSESSMENT: ?? BI-RADS 1 - Negative ? RECOMMENDATION: ?? 1 year F/U ? Electronically signed by: ??Reina Rod DO ??06/25/2024 11:13 AM EST ?? RP ? Addendum Dictated By: ?Reina Rod, DO ? Addendum Signed By: ? <Electronically signed by Reina Rod, DO in OV> ? 06/25/24 1113 ?? Addendum Cosigned By: ? DD/ /10/899 ? TD/TT: 06/23/2410/10/944 ? PROCEDURE: ?? ULTRASOUND-GUIDED RIGHT BREAST BIOPSY ? CLINICAL INFORMATION: ?? New oval solid mass in the right breast at 1:00. Strong family history ?? of breast cancer. ? COMPARISON: ?? Comparison is made with available prior examinations. ? TECHNIQUE: ?? The details of the procedure, as well as the risks, benefits, and ?? alternatives to the procedure were explained to the patient in detail ?? and all of her questions were answered, after which, written informed ?? consent was obtained. ? PROCEDURE: ?? Prior to the procedure, sonography revealed hypoechoic oval solid mass ?? at 1:00. A time-out was performed, the lesion intended for biopsy was ?? targeted and the skin of the right breast was then prepped and draped ?? in the usual sterile fashion. ? Using sonographic guidance, sterile technique, and 1% lidocaine without ?? epinephrine for local anesthesia, a total of 4 cores were obtained ?? through the targeted area with a 14-gauge biopsy device. At the ?? completion of tissue sampling, a single [coil metallic clip was ?? deposited at the biopsy site. ? An appropriate sample was obtained. ? The postprocedure 2-view direct digital mammogram reveals satisfactory ?? positioning of the biopsy clip. ? The patient tolerated the procedure well and, after assuring adequate ?? hemostasis, was discharged in good condition after reviewing postbiopsy ?? breast care instructions. Final pathology results are pending. ? US/US breast ndl core biopsy RT ?? IMPRESSION: ?? 1. Uncomplicated sonographically-guided core biopsy of the right ?? breast. The 2-view direct digital postprocedure mammogram reveals ?? satisfactory positioning of the biopsy clip. ?? 2. Final pathology results are pending. A separate report with final ?? recommendations will be issued once these results are made available. ? Electronically signed by: ??Reina Rod DO ??06/23/2024 10:30 AM EST ?? RP ? Dictated By: ?Reina Rod DO ? Signed By: ?<Electronically signed by Reina Rod, DO in OV> ? 06/23/24 1030 ? DD/ 0900 ? TD/TT: 06/23/24 0945 ? Bearing Ring Assembler: ? Procedure Note Willow, Image - 06/25/2024 [facility] [address] [place] [address] Dr. [place], [place] [address] Ultrasound Report Signed with Addenda Patient: Wendie Faye MMR #: [id number] : 1950cct:[id number] Age/Sex: 73 / FADM Date: 06/23/24 Loc: HO.MAMMO Attending Dr: Tim Cifuentes MD Ordering Physician: Tim Cifuentes MD Date of Service: 06/23/24 Procedure(s): US breast ndl core biopsy RT Accession Number(s): [id number] cc: Tim Cifuentes MD; Name,Martín MARKS ADDENDUM ADDENDUM #1 ADDENDUM: Right breast mass 1:00 ultrasound-guided core needle biopsy: Scan benign breast tissue with fibroadenomatous changes. Benign and concordant. Recommend return to annual screening. OVERALL ASSESSMENT: BI-RADS 1 - Negative RECOMMENDATION: 1 year F/U Electronically signed by: Reina Rod DO 06/25/2024 11:13 AM EST Addendum Dictated By: Reina Rod DO Addendum Signed By: <Electronically signed by DO Beka in OV> 06/25/24 1113 Addendum Cosigned By: DD/ /10/899 TD/TT: 06/23/2410/10/944 PROCEDURE: ULTRASOUND-GUIDED RIGHT BREAST BIOPSY CLINICAL INFORMATION: New oval solid mass in the right breast at 1:00. Strong family history of breast cancer. COMPARISON: Comparison is made with available prior examinations. TECHNIQUE: The details of the procedure, as well as the risks, benefits, and alternatives to the procedure were explained to the patient in detail and all of her questions were answered, after which, written informed consent was obtained. PROCEDURE: Prior to the procedure, sonography revealed hypoechoic oval solid mass at 1:00. A time-out was performed, the lesion intended for biopsy was targeted and the skin of the right breast was then prepped and draped in the usual sterile fashion. Using sonographic guidance, sterile technique, and 1% lidocaine without epinephrine for local anesthesia, a total of 4 cores were obtained through the targeted area with a 14-gauge biopsy device. At the completion of tissue sampling, a single [coil metallic clip was deposited at the biopsy site. An appropriate sample was obtained. The postprocedure 2-view direct digital mammogram reveals satisfactory positioning of the biopsy clip. The patient tolerated the procedure well and, after assuring adequate hemostasis, was discharged in good condition after reviewing postbiopsy breast care instructions. Final pathology results are pending. US/US breast ndl core biopsy RT IMPRESSION: 1. Uncomplicated sonographically-guided core biopsy of the right breast. The 2-view direct digital postprocedure mammogram reveals satisfactory positioning of the biopsy clip. 2. Final pathology results are pending. A separate report with final recommendations will be issued once these results are made available. Electronically signed by: Reina Rod DO 06/23/2024 10:30 AM EST Dictated By: Reina Rod DO Signed By: <Electronically signed by Reina Rod DO in OV> 06/23/24 1030 DD/ 0900 TD/TT: 06/23/24 0945 Bearing Ring Assembler: [facility] External Provider IMG US PROCEDURES Edited Result - Final * BI Mammogram Diagnostic Tomosynthesis Right (06/23/2024 9:00 AM EST) Anatomical Region Laterality Modality Breast Right Mammography 06/23/2024 9:00 AM EST Narrative 06/23/2024 10:34 AM EST ? [facility] ? [address] [facility] [address] [facility] ?[place] [address] ? Mammography Report ? Signed with Addenda ? Patient: Raimundo Abdalla,Eduarda ?MR ?? #: [id number] ? : 1950 ?Acct:[id number] ? Age/Sex: 73 / F ?ADM Date: 02/05/25 ? Loc: HO.MAMMO ? Attending : Tim Cifuentes MD ? Ordering Physician: Tim Cifuentes MD ?Results: ? Date of Service: 06/23/24 ?Follow Up: ? Procedure(s): MM tomosynthesis diagnostic RT ?? Accession Number(s): [id number] ? cc: Tim Cifuentes MD; Martín Pittman MD ?ADDENDUM ? ADDENDUM #1 ? ADDENDUM: ?? Right breast mass 1:00 ultrasound-guided core needle biopsy: Scan ?? benign breast tissue with fibroadenomatous changes. Benign and ?? concordant. ?? Recommend return to annual screening. ? OVERALL ASSESSMENT: ?? BI-RADS 1 - Negative ? RECOMMENDATION: ?? 1 year F/U ? Electronically signed by: ??Reina Rod DO ??06/25/2024 11:13 AM EST ?? RP ? Addendum Dictated By: ?Reina Rod, DO ? Addendum Signed By: ? <Electronically signed by Reina Rod, DO in OV> ? 06/25/24 1113 ?? Addendum Cosigned By: ? DD/ /10/899 ? TD/TT: 06/23/2410/10/944 ? PROCEDURE: ?? ULTRASOUND-GUIDED RIGHT BREAST BIOPSY ? CLINICAL INFORMATION: ?? New oval solid mass in the right breast at 1:00. Strong family history ?? of breast cancer. ? COMPARISON: ?? Comparison is made with available prior examinations. ? TECHNIQUE: ?? The details of the procedure, as well as the risks, benefits, and ?? alternatives to the procedure were explained to the patient in detail ?? and all of her questions were answered, after which, written informed ?? consent was obtained. ? PROCEDURE: ?? Prior to the procedure, sonography revealed hypoechoic oval solid mass ?? at 1:00. A time-out was performed, the lesion intended for biopsy was ?? targeted and the skin of the right breast was then prepped and draped ?? in the usual sterile fashion. ? Using sonographic guidance, sterile technique, and 1% lidocaine without ?? epinephrine for local anesthesia, a total of 4 cores were obtained ?? through the targeted area with a 14-gauge biopsy device. At the ?? completion of tissue sampling, a single [coil metallic clip was ?? deposited at the biopsy site. ? An appropriate sample was obtained. ? The postprocedure 2-view direct digital mammogram reveals satisfactory ?? positioning of the biopsy clip. ? The patient tolerated the procedure well and, after assuring adequate ?? hemostasis, was discharged in good condition after reviewing postbiopsy ?? breast care instructions. Final pathology results are pending. ? MM/MM tomosynthesis diagnostic RT ?? IMPRESSION: ?? 1. Uncomplicated sonographically-guided core biopsy of the right ?? breast. The 2-view direct digital postprocedure mammogram reveals ?? satisfactory positioning of the biopsy clip. ?? 2. Final pathology results are pending. A separate report with final ?? recommendations will be issued once these results are made available. ? Electronically signed by: ??Reina Rod DO ??06/23/2024 10:30 AM EST ? Dictated By: ?Reina Rod DO ? Signed By: ?<Electronically signed by Reina Rod, DO in OV> ? 06/23/24 1030 ? DD/ 0900 ? TD/TT: 06/23/24 0945 ? Bearing Ring Assembler: ? Procedure Note Donteresitater, Image - 07/02/2024 [facility] [address] [place] [address] Mammography Report Signed with Addenda Patient: Wendie Faye MMR #: [id number] : 3Acct:[id number] Age/Sex: 73 / FADM Date: 06/23/24 Loc: RENÉ Attending Dr: Tim Cifuentes MD Ordering Physician: Tim Cifuentesults: Date of Service: 06/23/24Follow Up: Procedure(s): MM tomosynthesis diagnostic RT Accession Number(s): [id number] cc: Tim Cifuentes MD; Name,Martín MARKS ADDENDUM ADDENDUM #1 ADDENDUM: Right breast mass 1:00 ultrasound-guided core needle biopsy: Scan benign breast tissue with fibroadenomatous changes. Benign and concordant. Recommend return to annual screening. OVERALL ASSESSMENT: BI-RADS 1 - Negative RECOMMENDATION: 1 year F/U Electronically signed by: Reina Rod DO 06/25/2024 11:13 AM EST Addendum Dictated By: Reina Rod DO Addendum Signed By: <Electronically signed by DO Beka in OV> 06/25/24 1113 Addendum Cosigned By: DD/ /10/899 TD/TT: 06/23/2410/10/944 PROCEDURE: ULTRASOUND-GUIDED RIGHT BREAST BIOPSY CLINICAL INFORMATION: New oval solid mass in the right breast at 1:00. Strong family history of breast cancer. COMPARISON: Comparison is made with available prior examinations. TECHNIQUE: The details of the procedure, as well as the risks, benefits, and alternatives to the procedure were explained to the patient in detail and all of her questions were answered, after which, written informed consent was obtained. PROCEDURE: Prior to the procedure, sonography revealed hypoechoic oval solid mass at 1:00. A time-out was performed, the lesion intended for biopsy was targeted and the skin of the right breast was then prepped and draped in the usual sterile fashion. Using sonographic guidance, sterile technique, and 1% lidocaine without epinephrine for local anesthesia, a total of 4 cores were obtained through the targeted area with a 14-gauge biopsy device. At the completion of tissue sampling, a single [coil metallic clip was deposited at the biopsy site. An appropriate sample was obtained. The postprocedure 2-view direct digital mammogram reveals satisfactory positioning of the biopsy clip. The patient tolerated the procedure well and, after assuring adequate hemostasis, was discharged in good condition after reviewing postbiopsy breast care instructions. Final pathology results are pending. MM/MM tomosynthesis diagnostic RT IMPRESSION: 1. Uncomplicated sonographically-guided core biopsy of the right breast. The 2-view direct digital postprocedure mammogram reveals satisfactory positioning of the biopsy clip. 2. Final pathology results are pending. A separate report with final recommendations will be issued once these results are made available. Electronically signed by: Reina Rod DO 06/23/2024 10:30 AM EST Dictated By: Reina Rod DO Signed By: <Electronically signed by Reina Rod DO in OV> 06/23/24 1030 DD/ 0900 TD/TT: 06/23/24 0945 Bearing Ring Assembler: [facility] External Provider IMG BI PROCEDURES Edited Result - Final * BI US Breast Limited Right (05/25/2024 9:45 AM EST) Anatomical Region Laterality Modality Breast Right Ultrasound 05/25/2024 9:45 AM EST Narrative 05/25/2024 10:32 AM EST ? [facility] ? [address] ?[place] [address] ? Ultrasound Report ? Signed ? Patient: Raimundo Abdalla,Eduarda ?MR ?? #: [id number] ? : 1950 ?Acct:[id number] ? Age/Sex: 73 / F ?ADM Date: 05/25/24 ? Loc: HO.MAMMO ? Attending Dr: Martín Pittman MD ? Ordering Physician: Martín Pittman MD ?? Date of Service: 05/25/24 ?? Procedure(s): US breast RT limited mamm only ?? Accession Number(s): [id number] ? cc: Martín Pittman MD ? EXAMINATION: [...] ??Reina Rod DO ??05/25/2024 10:30 AM EST ? Dictated By: ?Reina Rod DO ? Signed By: ?<Electronically signed by Reina Tyminski, DO in OV> ? 05/25/24 1030 ? DD/ 0945 ? TD/TT: 05/25/24 0957 ? Bearing Ring Assembler: ? Procedure Note Willow, Courtney - 05/25/2024 [facility] [address] [place] [address] [place] [address] Ultrasound Report Signed Patient: Wendie Faye MMR #: [id number] : 1950cct:[id number] Age/Sex: 73 / FADM Date: 05/25/24 Loc: HO.MAMMO Attending Dr: Martín Pittman MD Ordering Physician: Martín Pittman MD Date of Service: 05/25/24 Procedure(s): US breast RT limited mamm only Accession Number(s): [id number] cc: Martín Pittman MD EXAMINATION: MM DIAGNOSTIC [...] 05/25/24 1030 DD/ 0945 TD/TT: 05/25/24 0957 Bearing Ring Assembler: Martín Pittman MD [facility] US PROCEDURES Edited Result - Final * BI Mammogram Diagnostic Tomosynthesis added right (05/25/2024 9:05 AM EST) Anatomical Region Laterality Modality Breast Left Mammography 05/25/2024 9:05 AM EST Narrative 05/25/2024 10:33 AM EST ? [facility] ? [address] ?[place] [address] ? Mammography Report ? Signed ? Patient: Raimundo Abdalla,Eduarda ?MR ?? #: [id number] ? : 1950 ?Acct:[id number] ? Age/Sex: 73 / F ?ADM Date: 05/25/24 ? Loc: HO.MAMMO ? Attending : Martín Pittman MD ? Ordering Physician: Martín Pittman MD ?Results: 4Suspiciou ?? s Finding ? Date of Service: 05/25/24 ?Follow Up: Biopsy Recommend ?? ed ? Procedure(s): MM tomosynthesis added views R ?? Accession Number(s): [id number] ? cc: Martín Pittman MD ? EXAMINATION: [...] ??Reina Rod DO ??05/25/2024 10:30 AM EST ? Dictated By: ?Reina Rod DO ? Signed By: ?<Electronically signed by Reina Rod, DO in OV> ? 05/25/24 1030 ? DD/ 0905 ? TD/TT: 05/25/24 0920 ? Bearing Ring Assembler: ? Procedure Note Willow, Image - 05/25/2024 [facility] [address] [place] [address] [place] [address] Mammography Report Signed Patient: Wendie Faye MMR #: [id number] : 3Acct:[id number] Age/Sex: 73 / FADM Date: 05/25/24 Loc: RENÉ Attending Dr: Martín Pittman MD Ordering Physician: Martín Pittmanults: 4Suspiciou s Finding Date of Service: 05/25/24Follow Up: Biopsy Recommend ed Procedure(s): MM tomosynthesis added views R Accession Number(s): [id number] cc: Name,Martín MARKS EXAMINATION: MM DIAGNOSTIC DIGITAL [...] 05/25/24 1030 DD/ 0905 TD/TT: 05/25/24 0920 Bearing Ring Assembler: Martín Pittman MD IM BI PROCEDURES Edited Result - Final * Hepatitis C Ab (05/10/2024 1:37 PM EST) Pathologist [facility] Hepatitis C Antibody Nonreactive Nonreactive [facility] Comment:Antibodies to HCV no t detected; does not exclude early acuteHCV infection. 05/10/2024 1:37 PM EST 05/10/2024 4:01 PM EST Generic External Data Provider LAB BLOOD ORDERAB LES Final Result Performing Organization Address [facility]/ZIP Co de Phone Number [facility] [address] [place] [phone] * HCV RNA BY PCR, QN RFX DARIN (05/10/2024 1:37 PM EST) [facility] HCV RNA PCR QN <15 NOT DETECTED NOT DETECTED IU/mL [facility] HCV RNA PCR QN <1.18 NOT DETECTED NOT DETECTED Log IU/mL [facility] HCV RNA COMMENT SEE NOTE [facility] Comment:For additional infor mation, please refer tohttp://education.Dexetra/faq/VHP35f9(This link is being provided for informational/Educational purposes only.)THIS TEST WAS PERFORMED AT:[facility] [place] [id number] MCCLAIN MD HCV RNA GENOTYPE,LIPA TNP [facility] Comment:Test not indicated. 05/10/2024 1:37 PM EST 05/10/2024 4:01 PM EST Generic External Data Provider LAB BLOOD ORDERAB LES Final Result Performing Organization Address [facility] Co de Phone Number [facility] [address] [place] [phone] * Hepatitis C Antibody with Reflex to HCV, RNA, Quantitative, Real-Time PCR (05/10/2024 1:37 PM EST) [facility] Hepatitis C Antibody Nonreactive Nonreactive [facility] Comment:Antibodies to HCV no t detected; does not exclude early acuteHCV infection. Blood Venous blood specimen / Unknown 05/10/2024 1:37 PM EST 05/10/2024 4:01 PM EST us Martín Pittman MD LAB BLOOD ORDERABLES Final Resul t [facility] [address] [place] [address] [phone] * (ABNORMAL) Hm Colonoscopy (08/12/2023) Colonoscopy Abnormal(A ) Normal us Martín Ptitman MD HEALTH MAINTENANCE Final Result * (ABNORMAL) Lipid Panel, Standard (07/24/2022 9:07 AM EST) Cholesterol, Total 206(H) <200 mg/dL [facility] HDL Cholesterol 40(L) > OR = 50 mg/dL [facility] Triglycerides 252(H) <150 mg/dL [facility] Comment: If a non-fasting specimen was collected, consider repeat triglyceride testing on a fasting specimen if clinically indicated. Arian et al. J. of Clin. Lipidol. 2015;9:129-169. LDL Cholesterol 127(H) mg/dL (calc) [facility] Comment: Reference range: <100 Desirable range <100 mg/dL for primary prevention; ?? <70 mg/dL for patients with CHD or diabetic patients with > or = 2 CHD risk factors. LDL-C is now calculated using the James-Jagruti calculation, which is a validated novel method providing better accuracy than the Friedewald equation in the estimation of LDL-C. James GREENWOOD et al. SHEREE. 2013;310(19): 1799-9028 (http://education.Riskonnect/faq/SRS143) Chol/HDLC Ratio 5.2(H) <5.0 (calc) [facility] Non-HDL Cholesterol 166(H) <130 mg/dL (calc) [facility] Comment: For patients with diabetes plus 1 major ASCVD risk factor, treating to a non-HDL-C goal of <100 mg/dL (LDL-C of <70 mg/dL) is considered a therapeutic option. Blood Venous blood specimen / Unknown 07/24/2022 9:07 AM EST 07/24/2022 9:08 AM EST Narrative [facility] - 07/24/2022 9:39 PM EST FASTING:NO FASTING: NO us Martín Name LAB BLOOD ORDERABLES Final Resul t [facility] [address] [facility], [address], [place] [address] [facility] [address], ([address]) [place] [address] * Fecal immunochemical (07/15/2022) Fecal Immunoassay Test (External) Negative Stool Rectal contents / Unknown Historical Provider LAB BODY FLUIDS AND STOOL S ORDERABLES Final Result from Last 3 Months or Most Recently Relevant to Health Maintenance Insurance [facility] D[facility]AL - [facility] [address] [address] Care Teams Crutcher Helper Relationship Specialty Start Date End Date Name, MD Martín [address] [place] [address] PCP - General Family Medicine 07/18/15
--- OUTSIDE RECORDS SUMMARY | 2024-07-15 16:57 | XMS_ITS | Encounter Summary ---
Author Organization [facility] Address [address] [facility] 7t [place] [address] Care Team Providers Care Solutions Specialist Name Role Phone Name, Martín MARKS Primary Care Provider [phone] Encounter Details Date Type Department Care Team (Latest Contact Info) Description 11/01/2021 Abstract [facility] CONVERSIONS Dental, Provider, DDS Social History [...] Description 07/19/2024 4:00 PM EST Office Visit [facility] MEDICINE [address] [place] [address] NameMartín MD [address] [place] [address] 09/02/2024 2:00 PM EDT Office Visit [facility] ADULT DENTAL [address] [place] [address] Kasia Maldonado [address] [place] [address] documented as of this encounter Visit Diagnoses Not on filedocumented in this encounter Care Teams Solutions Specialist Relationship Specialty Start Date End Date Martín Pittman MD [address] [place] [address] PCP - General Family Medicine 07/18/15 documented as of this encounter
--- OUTSIDE RECORDS SUMMARY | 2024-07-15 16:57 | XMS_ITS | Encounter Summary ---
Author Organization [facility] Address [address] [facility] 7t [place] [address] Care Team Providers Care Inspector Filter Tip Name Role Phone Name, Martín MARKS Primary Care Provider [phone] Encounter Details Date Type Department Care Team (Latest Contact Info) Description 07/26/2019 Abstract [facility] CONVERSIONS Dental, Provider, DDS Social History Tobacco [...] 4:00 PM EST Office Visit [facility] MEDICINE [address] [place] [address] NameMartín MD [address] [place] [address] 09/02/2024 2:00 PM EDT Office Visit [facility] ADULT DENTAL [address] [place] [address] Kasia Maldonado [address] [place] [address] documented as of this encounter Visit Diagnoses Not on filedocumented in this encounter Care Teams Inspector Filter Tip Relationship Specialty Start Date End Date Martín Pittman MD [address] [place] [address] PCP - General Family Medicine 07/18/15 documented as of this encounter
--- OUTSIDE RECORDS SUMMARY | 2024-07-15 16:57 | XMS_ITS | Encounter Summary ---
Author Organization [employer] Address [address] [facility] 7t [place] [address] Care Team Providers Care Street Worker Name Role Phone Name, Martín MARKS Primary Care Provider [phone] Encounter Details Date Type Department Care Team ([facility] st Contact Info) Description 03/07/2023 Orders Only [facility] CH[facility] MED & PEDS [address] [place], [place] [phone] Geno Malave LPN Social History Tobacco Use [...] Description 07/19/2024 4:00 PM EST Office Visit [facility] MEDICINE 230 [place] [address] Name, MD Martín 230 [place] [address] 09/02/2024 2:00 PM EDT Office Visit [facility] ADULT DENTAL 230 [place] [address] Kasia Maldonado 230 [place] [address] documented as of this encounter Procedures Procedure Name Priority Date/Time Associated Diagnosis Comments BI MAMMOGRAM SCREENING TOMOSYNTHESIS BILATERAL Routine 03/11/2023 2:45 PM EDT documented in this encounter Results * BI Mammogram Screening Tomosynthesis Bilateral (03/11/2023 2:45 PM EDT) Anatomical Region Laterality Modality Breast Bilateral Mammography 03/11/2023 2:45 PM EDT Narrative 03/29/2023 1:32 PM EST ? [facility] [place] ? [address] [facility] ?[place] [address] ? Mammography Report ? Signed ? Patient: Raimundo Abdalla,Eduarda ?MR ?? #: [id number] ? : 1950 ?Acct:[id number] ? Age/Sex: 72 / F ?ADM Date: 10/24/23 ? Loc: HO.MAMMO ? Attending : Martín Pittman MD ? Ordering Physician: Toya,Martín MARKS ?Results: 1Negative ? Date of Service: 03/11/23 ?Follow Up: 1 Year From Orig ?? inal Mammogram ? Procedure(s): MM tomosynthesis screening BI ?? Accession Number(s): [id number] ? cc: Toya,Martín MARKS ? EXAMINATION: ?? [...] by Destiny Gilman MD in OV> ? 11/11/23 1329 ? DD/DT: 03/11/ 1445 ? TD/TT: ? Police And Fire Dispatcher: ? Procedure Note Donotuseinterpreter, Image - 03/29/2023 [facility] [address] [place] [address] [place] [address] Mammography Report Signed Patient: Wendie Faye MMR #: [id number] : 3Acct:[id number] Age/Sex: 72 / FADM Date: 03/11/23 Loc: HO.MAMMO Attending Dr: Martín Pittman MD Ordering Physician: Martín Pittman MDResults: 1Negative Date of Service: 03/11/23Follow Up: 1 Year From Orig inal Mammogram Procedure(s): MM tomosynthesis screening BI Accession Number(s): [id number] cc: Martín Pittman MD EXAMINATION: MM SCREENING [...] in OV> 03/29/23 1329 DD/ 1445 TD/TT: Police And Fire Dispatcher: Martín Pittman MD IMG BI PROCEDURES Edited Result - Final documented in this encounter Visit Diagnoses Not on filedocumented in this encounter Care Teams Street Worker Relationship Specialty Start Date End Date Name, MD Martín [address] [place] [address] PCP - General Family Medicine 07/18/15 documented as of this encounter
--- OUTSIDE RECORDS SUMMARY | 2024-07-15 16:58 | XMS_ITS | Encounter Summary ---
Author Organization [employer] Address [address] [facility] 7t [place] [address] Care Team Providers Care Outside Machinist Helper Name Role Phone Name, Martín MARKS Primary Care Provider [phone] Encounter Details Date Type Department Care Team (Late st Contact Info) Description 06/23/2024 Orders Only [facility] External Provider, [facility] Social History Tobacco Use Types Packs/Day Years [...] Description 07/19/2024 4:00 PM EST Office Visit [facility] MEDICINE 230 [place] [address] Name, MD Martín 230 [place] [address] 09/02/2024 2:00 PM EDT Office Visit [facility] ADULT DENTAL 230 [place] [address] Kasia Maldonado [address] [place] [address] documented as of this encounter Procedures Procedure Name Priority Date/Time Associated Diagnosis Comments HEMATOXYLIN AND EOSIN STAIN Routine 06/23/2024 9:33 AM EST BREAST NDL CORE BIOPSY RT Routine 06/23/2024 9:00 AM EST BI MAMMOGRAM DIAGNOSTIC TOMOSYNTHESIS RIGHT Routine 06/23/2024 9:00 AM EST documented in this encounter Results * Hematoxylin and Eosin Stain (06/23/2024 9:33 AM EST) 06/23/2024 9:33 AM EST 06/23/2024 12:00 PM EST [facility] LAB[facility] - 06/24/2024 12:21 PM EST ----- ------- Name: Wendie Faye ?Age/Sex: 73/F ? : 1950 Unit#: [id number] ?? Attend Dr: Tim Cifuentes MD ?Re06/23/24 ?Status: DEP REF ? Location: HO.MAMMO ?Disch: ? ----- ------- SPEC : [id number] ?RECD: 06/23/24-1200 ? STATUS: ??SOUT ? REQ NUM: [id number] ? MADHAV: 06/23/248172 ? SUBM DR: Reina Rod DO ? ENTERED: ??06/23/24-7572 ?SP TYPE: Surgical ? OTHR DR: Tim [...] Copies To: ?? Tim Cifuentes MD ?? [facility] General Surgeons ?? [address] [facility] ?? [place] [address] ?? [phone] ?? Name,Martín MARKS ?? [address] [facility] ?? [place] [address] ?? [phone] ? CONTINUED ON NEXT PAGE ----- ------- Name: Wendie Faye ?Age/Sex: 73/F ? : 1950 Unit#: [id number] ?? Attend Dr: Tim Cifuentes MD ?Re06/23/24 ?Status: DEP REF ? Location: HO.MAMMO ?Disch: ? ----- ------- SPEC : [id number] ?RECD: 06/23/24-1199 ? STATUS: ??SOUT ? REQ NUM: [id number] ? MADHAV: 06/23/24 ? SUBM DR: Reina Rod DO ? ENTERED: ??06/23/24-3030 ?SP TYPE: Surgical ? OTHR DR: Tim Cifuentes MD ?Name,Martín MARKS ORDERED: ??HE Stain/2, Gross Micro L4 ? COMMENTS: As per the specimen requisition slip the specimen is ?collected at 0933 and placed in formalin at 0940. Copies To: ??(Continued) ?? Reina Rod DO ?? [address] ?? [place] [address] ?? [phone] ----- ------- Signed (signature on file) Catia Marshall 06/24/24 1221 ? ----- ------- ? END OF REPORT ? us Generic External Data Provider LAB BLOOD ORDERAB LES Final Result [facility] LABS [address] [place] [address] [phone] * US BREAST NDL CORE BIOPSY RT (06/23/2024 9:00 AM EST) Anatomical Region Laterality Modality Abdomen Ultrasound 06/23/2024 9:00 AM EST Narrative 06/23/2024 10:34 AM EST ? [facility] ? [address] ?[place] [address] ? Ultrasound Report ? Signed with Addenda ? Patient: Raimundo Abdalla,Eduarda ?MR ?? #: [id number] ? : 1950 ?Acct:[id number] ? Age/Sex: 73 / F ?ADM Date: 06/23/24 ? Loc: HO.MAMMO ? Attending Dr: Tim Cifuentes MD ? Ordering Physician: Tim Cifuentes MD ?? Date of Service: 06/23/24 ?? Procedure(s): US breast ndl core biopsy RT ?? Accession Number(s): [id number] ? cc: Tim Cifuentes MD; Name,Martín MARKS ?ADDENDUM ? ADDENDUM #1 ? ADDENDUM: ?? [...] instructions. Final pathology results are pending. ? US/ breast ndl core biopsy RT ?? IMPRESSION: [...] Signed By: ?<Electronically signed by Reina Rod, in OV> ? 06/23/24 1030 ? DD/ 0900 ? TD/TT: 06/23/24 0945 ? Lunchroom Aide: ? Procedure Note Donteresitater, Image - 06/25/2024 [place] [facility] [address] [place] [address] Ultrasound Report Signed with Addenda Patient: Wendie Faye MMR #: [id number] : 3Acct:[id number] Age/Sex: 73 / FADM Date: 06/23/24 Loc: RENÉ Attending Dr: Tim Cifuentes MD Ordering Physician: Tim Cifuentes MD Date of Service: 06/23/24 Procedure(s): US breast ndl core biopsy RT Accession Number(s): [id number] cc: Tim Cifuentes MD; Name,Martín MARKS ADDENDUM ADDENDUM #1 ADDENDUM: Right breast mass 1:00 ultrasound-guided core needle biopsy: Scan benign breast tissue with fibroadenomatous changes. Benign and concordant. Recommend return to annual screening. OVERALL ASSESSMENT: BI-RADS 1 - Negative RECOMMENDATION: 1 year F/U Electronically signed by: Reina Rod DO 06/25/2024 11:13 AM EST RP Addendum Dictated By: Reina Rod DO Addendum [...] Reina Rod DO 06/23/2024 10:30 AM EST RP Dictated By: Reina Rod DO Signed By: <Electronically signed by Reina Rod DO in OV> 06/23/24 1030 DD/ 0900 TD/TT: 06/23/24 0945 Lunchroom Aide: [facility] External Provider IMG US PROCEDURES Edited Result - Final * BI Mammogram Diagnostic Tomosynthesis Right (06/23/2024 9:00 AM EST) Anatomical Region Laterality Modality Breast Right Mammography 06/23/2024 9:00 AM EST Narrative 06/23/2024 10:34 AM EST ? [facility] [place] ? [address] ?[place] [address] ? Mammography Report ? Signed with Addenda ? Patient: Wendie Faye ?MR ?? #: [id number] ? : 1950 ?Acct:[id number] ? Age/Sex: 73 / F ?ADM Date: 06/23/ ? Loc: HO.MAMMO ? Attending Dr: Tim Cifuentes MD ? Ordering Physician: Tim Cifuentes MD ?Results: ? Date of Service: // ?Follow Up: ? Procedure(s): MM tomosynthesis diagnostic RT ?? Accession Number(s): [id number] ? cc: Tim Cifuentes MD; Martín Pittman [...] 06/23/24 1030 ? DD/ 0900 ? TD/TT: 06/23/2445 ? Lunchroom Aide: ? Procedure Note Donotbarbinterpreter, Image - 07/02/2024 [place] [facility] [address] [place], [place] [address] Mammography Report Signed with Addenda Patient: Wendie Faye MMR #: [id number] : 1950cct:[id number] Age/Sex: 73 / FADM Date: 06/23/24 Loc: HO.MAMMO Attending Dr: Tim Cifuentes MD Ordering Physician: Tim Cifuentesesults: Date of Service: 06/23/24Follow Up: Procedure(s): MM tomosynthesis diagnostic RT Accession Number(s): [id number] cc: Tim Cifuentes MD; Name,Martín MARKS ADDENDUM [...] 06/23/24 1030 DD/ 0900 TD/TT: 06/23/24 0945 Lunchroom Aide: [facility] External Provider IMG BI PROCEDURES Edited Result - Final documented in this encounter Visit Diagnoses Not on filedocumented in this encounter Additional Health Concerns Assessment Noted Time PHQ-9 Depression Total Score: 22 04/06/ 024 11:54 AM EST documented as of this encounter Care Teams Outside Machinist Helper Relationship Specialty Start Date End Date Name, MD Martín [address] [place] [address] PCP - General Family Medicine 07/18/15 documented as of this encounter
--- OUTSIDE RECORDS SUMMARY | 2024-07-15 16:58 | XMS_ITS | Encounter Summary ---
Author Organization [employer] Address [address] [facility] 7t [place] [address] Care Team Providers Care Professor Of Religion Name Role Phone Name, Martín MARKS Primary Care Provider [phone] Reason for Visit * Reason Onset Date Comments ER Follow-up 07/14/2024 Encounter Details Date Type Department Care Team ([facility] st Contact Info) Description 07/14/2024 Telephone [facility] MEDICINE [address] [place], [place] [phone] Name, MD Martín 230 [place] [address] ER Follow-up Social History Tobacco Use Types Packs/Day [...] encounter Miscellaneous Notes * Telephone Encounter - Kailey Delarosa RN - 07/14/2024 8:21 AM EST No business office technology instructor needed as this life underwriter speaks Maldivian. Per notes pt seen for acute diverticulitis. Seen at outside ER in [facility] returned to Wendie Abdalla to triage below. Reports having appt with General surgeon on 07/23/24. Per pt was calling due to not being able to obtain Rx for medications at [place] due to flying back home that same day. Rx for amoxicillin-clavulanate (Augmentin) 5 00-125 MG tablet , - hyoscyamine (Levsin/SL) 0.125 MG SL tablet - promethazine (Phenergan) 12.5 MG tablet . Pt offered in office appt for follow up. Pt declines , states called in to request instED. Continues to have abd pain. No vomiting or severe diarrhea reported. Confirmed demographics and allergies. Pt advised that patient can call and request visit. Does not require referral from PCP. Will submit for patient on portal. Protocol Used: Recent Medical Visit for Illness Follow-up Call (Adult) Protocol-Based Disposition: See in Office or Video Visit Today or Tomorrow Video visit offer not recorded Positive Triage Question: * Patient wants to be seen * All higher-acuity triage questions were negative Care Advice Discussed: * Reasons To Call Back - You become worse * Telephone Encounter - Safia Eubanks - 07/14/2024 8:12 AM EST Patient calling to report ED visit on : Date: 07/12/24 Hospital: [facility]. Seen for: Abdominal Pain Symptomatic Yes *if yes message should go to Triage Patient advised will forward to team nurse for follow up *Pt states would like to be prescribed more medications. - amoxicillin-clavulanate (Augmentin) 500-125 MG tablet , - hyoscyamine (Levsin/SL) 0.125 MG SL tablet - promethazine (Phenergan) 12.5 MG tablet documented in this encounter Plan of Treatment Upcoming Encounters Date Type Department Care Team (Late st Contact Info) Description 07/19/2024 4:00 PM EST Office Visit [facility] MEDICINE [address] [place] [address] Name, MD Martín [address] [place] [address] 09/02/2024 2:00 PM EDT Office Visit [facility] ADULT DENTAL [address] [place] [address] EricaKasia [address] [place] [address] documented as of this encounter Visit Diagnoses Not on filedocumented in this encounter Additional Health Concerns Assessment Noted Time PHQ-9 Depression Total Score: 22 024 11:54 AM EST documented as of this encounter Care Teams Professor Of Religion Relationship Specialty Start Date End Date NameMartín MD [address] [place] [address] PCP - General Family Medicine 07/18/15 documented as of this encounter
--- OUTSIDE RECORDS SUMMARY | 2024-07-15 16:58 | XMS_ITS | Encounter Summary ---
Author Organization [employer] Address [address] [facility] 7t [place] [address] Care Team Providers Care Checker And Packer Name Role Phone Name, Martín MARKS Primary Care Provider [phone] Reason for Visit * Reason Comments Med Refill Encounter Details Date Type Department Care Team ([facility] st Contact Info) Description 01/21/2024 Refill [facility] MEDICINE [address] [employer], [place] [phone] Name, MD Martín [address] [place] [address] Insomnia, unspecified type Social History Tobacco Use [...] Description 07/19/2024 4:00 PM EST Office Visit [facility] MEDICINE [address] [place] [address] NameMartín MD [address] [place] [address] 09/02/2024 2:00 PM EDT Office Visit [facility] ADULT DENTAL [address] [place] [address] Erica, Kasia [address] [place] [address] documented as of this encounter Visit Diagnoses Diagnosis Insomnia, unspecified type documented in this encounter Additional Health Concerns Assessment Noted Time PHQ-9 Depression Total Score: 10 024 1:21 PM EDT documented as of this encounter Care Teams Checker And Packer Relationship Specialty Start Date End Date Name, MD Martín [address] [place] [address] PCP - General Family Medicine 07/18/15 documented as of this encounter
--- OUTSIDE RECORDS SUMMARY | 2024-07-15 16:58 | XMS_ITS | Encounter Summary ---
Author Organization [employer] Address [address] [facility] 7t [place] [address] Care Team Providers Care Safety Equipment Testing Specialist Name Role Phone Name, Martín MARKS Primary Care Provider [phone] Reason for Visit * Reason Onset Date Comments Med Refill 07/22/2023 Encounter Details Date Type Department Care Team ([facility] st Contact Info) Description 07/22/2023 Telephone [facility] MEDICINE [address] [place], [place] [phone] Name, MD Martín 230 [place] [address] Med Refill Social History Tobacco Use Types [...] 10 MG tablet To be sent to: [facility]/pharmacy #[id number] [place] [address] documented in this encounter Plan of Treatment Upcoming Encounters Date Type Department Care Team (Late st Contact Info) Description 07/19/2024 4:00 PM EST Office Visit [facility] MEDICINE [address] [place] [address] Name, MD Martín [address] [place] [address] 09/02/2024 2:00 PM EDT Office Visit [facility] ADULT DENTAL [address] [place] [address] Kasia Maldonado [address] [place] [address] documented as of this encounter Visit Diagnoses Not on filedocumented in this encounter Care Teams Safety Equipment Testing Specialist Relationship Specialty Start Date End Date Name, MD Martín [address] [place] [address] PCP - General Family Medicine 07/18/15 documented as of this encounter
--- OUTSIDE RECORDS SUMMARY | 2024-07-15 16:58 | XMS_ITS | Encounter Summary ---
Author Organization [employer] Address [address] [facility] 7t [place] [address] Care Team Providers Care Pageant Director Name Role Phone Name, Martín MARKS Primary Care Provider [phone] Reason for Visit * Reason Onset Date Comments chartprep 07/15/2024 Encounter Details Date Type Department Care Team (Late st Contact Info) Description 07/15/2024 Telephone [facility] MED & PEDS [address] [place], [place] [phone] Name, MD Martín [address] [place] [address] chartprep Social History Tobacco Use Types Packs/Day Years [...] encounter Miscellaneous Notes * Telephone Encounter - Razia Cruz [place] - 07/15/2024 9:29 AM EST Chart Prep Labs: not applicable Images: done Vaccines due: yes Covid, flu, and zoster. Referrals: n/a Screenings: none Overdue care gaps: SDOH, PHQ-9, JOSHUA-7 documented in this encounter Plan of Treatment Upcoming Encounters Date Type Department Care Team (Late st Contact Info) Description 07/19/2024 4:00 PM EST Office Visit [facility] MEDICINE [address] [place] [address] NameMartín MD [address] [place] [address] 09/02/2024 2:00 PM EDT Office Visit [facility] ADULT DENTAL [address] [place] [address] Kasia Maldonado 230 [place] [address] documented as of this encounter Visit Diagnoses Not on filedocumented in this encounter Additional Health Concerns Assessment Noted Time PHQ-9 Depression Total Score: 22 024 11:54 AM EST documented as of this encounter Care Teams Pageant Director Relationship Specialty Start Date End Date NameMartín MD [address] [place] [address] PCP - General Family Medicine 07/18/15 documented as of this encounter
--- OUTSIDE RECORDS SUMMARY | 2024-07-15 16:58 | XMS_ITS | Encounter Summary ---
Author Organization [employer] Address [address] [facility] 7t [place] [address] Care Team Providers Care Ash Kier Boiler Name Role Phone Name, Martín MARKS Primary Care Provider [phone] Reason for Visit * Reason Onset Date Comments Med Refill 06/21/2024 Encounter Details Date Type Department Care Team (Late st Contact Info) Description 06/21/2024 Refill [facility] MEDICINE [address] [place], [place] [phone] Name, MD Martín [address] [place] [address] Insomnia, unspecified type Social History Tobacco Use [...] Malave LPN - 06/21/2024 2:29 PM EST CARDIAC SURGEON checked on 06/21/24. Next appointment 07/19/24. * Telephone Encounter - Himanshu Kerns - 06/21/2024 2:00 PM EST TC from pt requesting medication refill. Medications needing refill : zolpidem (Ambien) 10 MG tablet To be sent to: [facility]/pharmacy #[id number] documented in this encounter Plan of Treatment Upcoming Encounters Date Type Department Care Team (Late st Contact Info) Description 07/19/2024 4:00 PM EST Office Visit [facility] MEDICINE [address] [place], [place] [phone] Name, MD Martín [address] [place], [place] [phone] 09/02/2024 2:00 PM EDT Office Visit [facility] ADULT DENTAL [address] [place], [place] [phone] Kasia Maldonado [address] [place], [place] [phone] documented as of this encounter Visit Diagnoses Diagnosis Insomnia, unspecified type documented in this encounter Additional Health Concerns Assessment Noted Time PHQ-9 Depression Total Score: 22 024 11:54 AM EST documented as of this encounter Care Teams Ash Kier Boiler Relationship Specialty Start Date End Date Name, MD Martín [address] [place] [address] PCP - General Family Medicine 07/18/15 documented as of this encounter
--- OUTSIDE RECORDS SUMMARY | 2024-07-15 16:58 | XMS_ITS | Encounter Summary ---
Author Organization [employer] Address [address] [facility] 7t [place] [address] Care Team Providers Care Intensivist Name Role Phone Name, Martín MARKS Primary Care Provider [phone] Reason for Visit * Reason Comments Med Refill Encounter Details Date Type Department Care Team ([facility] st Contact Info) Description 05/24/2023 Refill [facility] MEDICINE [address] [place], [place] [phone] Name, MD Martín 230 [place] [address] Allergic rhinitis, unspecified seasonality, unspecified trigger Social [...] Description 07/19/2024 4:00 PM EST Office Visit [facility] MEDICINE [address] [place] [address] Name, MD Martín [address] [place] [address] 09/02/2024 2:00 PM EDT Office Visit [facility] ADULT DENTAL [address] [place] [address] Kasia Maldonado [address] [place] [address] documented as of this encounter Visit Diagnoses Diagnosis Allergic rhinitis, unspecified seasonality, unspecified trigger documented in this encounter Care Teams Intensivist Relationship Specialty Start Date End Date NameMartín MD [address] [place] [address] PCP - General Family Medicine 07/18/15 documented as of this encounter
--- OUTSIDE RECORDS SUMMARY | 2024-07-15 16:58 | XMS_ITS | Encounter Summary ---
Author Organization [employer] Address [address] [facility] 7t [place] [address] Care Team Providers Care Laser Operator Name Role Phone Name, Martín MARKS Primary Care Provider [phone] Reason for Visit * Reason Comments Med Refill Encounter Details Date Type Department Care Team ([facility] st Contact Info) Description 04/09/2023 Refill [facility] MEDICINE [address] [place], [place] [phone] Name, MD Martín 230 [place] [address] Social History Tobacco Use Types Packs/Day Years [...] Office Visit [facility] MEDICINE [address] [place] [phone] Name, MD Martín [address] [place] [address] 09/02/2024 2:00 PM EDT Office Visit [facility] ADULT DENTAL [address] [place] [address] Kasia Maldonado [address] [place] [address] documented as of this encounter Visit Diagnoses Not on filedocumented in this encounter Care Teams Laser Operator Relationship Specialty Start Date End Date Name, MD Martín [address] [place] [address] PCP - General Family Medicine 07/18/15 documented as of this encounter
--- OUTSIDE RECORDS SUMMARY | 2024-07-15 16:58 | XMS_ITS | Encounter Summary ---
Author Organization [employer] Address [address] [facility] 7t [place] [address] Care Team Providers Care Security And Compliance Project Manager Name Role Phone Name, Martín MARKS Primary Care Provider [phone] Encounter Details Date Type Department Care Team (Late st Contact Info) Description 10/28/2022 Abstract [facility] MEDICINE [address] [place] [phone] NameMartín MD [address] [place] [address] Social History Tobacco Use Types Packs/Day Years [...] Description 07/19/2024 4:00 PM EST Office Visit [facility] MED[facility]INE [address] [place] [address] [phone] NameMartín MD [address] [place] [address] 09/02/2024 2:00 PM EDT Office Visit [facility] ADULT DENTAL [address] [place] [address] [phone] Kasia Maldonado 230 [place] [address] documented as of this encounter Visit Diagnoses Not on filedocumented in this encounter Care Teams Security And Compliance Project Manager Relationship Specialty Start Date End Date Name, MD Martín 230 [place] [address] PCP - General Family Medicine 07/18/15 documented as of this encounter
--- OUTSIDE RECORDS SUMMARY | 2024-07-15 16:58 | XMS_ITS | Encounter Summary ---
Author Organization [employer] Address [address] [facility] 7t [place] [address] Care Team Providers Care Double Cut Sawyer Name Role Phone Name, Martín MARKS Primary Care Provider [phone] Reason for Visit * Reason Onset Date Comments Med Refill 10/21/2022 Encounter Details Date Type Department Care Team ([facility] Contact Info) Description 10/21/2022 Refill [facility] [address] [place], [place] [phone] Name, MD Martín [address] [place] [address] Insomnia, unspecified type Social History Tobacco Use [...] Upcoming Encounters Date Type Department Care Team ([facility] Contact Info) Description 07/19/2024 4:00 PM EST Office Visit [facility] [address] [place] [address] Name, MD Martín [address] [place] [address] 09/02/2024 2:00 PM EDT Office Visit [facility] ADULT DENTAL 230 [place] [address] Kasia Maldonado [address] [place] [address] documented as of this encounter Visit Diagnoses Diagnosis Insomnia, unspecified type documented in this encounter Care Teams Double Cut Sawyer Relationship Specialty Start Date End Date Name, MD Martín [address] [place] [address] PCP - General Family Medicine 07/18/15 documented as of this encounter
--- OUTSIDE RECORDS SUMMARY | 2024-07-15 16:58 | XMS_ITS | Encounter Summary ---
Author Organization [employer] Address [address] [facility] 7t [place] [address] Care Team Providers Care Inside Sales Supervisor Name Role Phone Name, Martín MARKS Primary Care Provider [phone] Encounter Details Date Type Department Care Team ([facility] st Contact Info) Description 03/25/2023 Orders Only [facility] MEDICINE [address] [place], [place] [phone] Name, MD Martín [address] [place] [address] Social History Tobacco Use Types Packs/Day Years [...] Description 07/19/2024 4:00 PM EST Office Visit [facility] MEDICINE [address] [place] [address] Name, MD Martín [address] [place] [address] 09/02/2024 2:00 PM EDT Office Visit [facility] ADULT DENTAL [address] [place] [address] Kasia Maldonado [address] [place] [address] documented as of this encounter Visit Diagnoses Not on filedocumented in this encounter Care Teams Inside Sales Supervisor Relationship Specialty Start Date End Date Name, MD Martín [address] [place] [address] PCP - General Family Medicine 07/18/15 documented as of this encounter
--- OUTSIDE RECORDS SUMMARY | 2024-07-15 16:58 | XMS_ITS | Encounter Summary ---
Author Organization [employer] Address [address] [facility] 7t [place] [address] Care Team Providers Care Heel Burnisher Name Role Phone Name, Martín MARKS Primary Care Provider Reason for Visit * Reason Onset Date Comments Call Back Request 07/11/2023 Encounter Details Date Type Department Care Team ([facility] st Contact Info) Description 07/11/2023 Telephone [facility] MEDICINE [address] [place], [place] [phone] Name, MD Martín 230 [place] [address] Call Back Request Social History Tobacco Use [...] T/C to pt. For below message through [place] - [id number], pt. States she has already apt. For CT scan, pt. Is all set right now. Advised to give call to [facility] if any question or concerns. * Telephone Encounter - Sharon Langford - 07/11/2023 11:45 AM EST Tc from pt requesting order for ct scan on left hand stated talk with PCP about this please contactpt for clarifications. documented in this encounter Plan of Treatment Upcoming Encounters Date Type Department Care Team ([facility] st Contact Info) Description 07/19/2024 4:00 PM EST Office Visit [facility] MEDICINE [address] [place] [address] NameMartín MD 230 [place] [address] 09/02/2024 2:00 PM EDT Office Visit [facility] ADULT DENTAL [address] [place] [address] Kasia Maldonado [address] [place] [address] documented as of this encounter Visit Diagnoses Not on filedocumented in this encounter Care Teams Heel Burnisher Relationship Specialty Start Date End Date NameMartín MD 230 [place] [address] PCP - General Family Medicine 07/18/15 documented as of this encounter
--- OUTSIDE RECORDS SUMMARY | 2024-07-15 16:58 | XMS_ITS | Encounter Summary ---
Author Organization [employer] Address [address] [facility] 7t [place] [address] Care Team Providers Care Director Semiconductor Name Role Phone Name, Martín MARKS Primary Care Provider Reason for Visit * Reason Onset Date Comments Hospital Follow-up 04/12/2024 Encounter Details Date Type Department Care Team ([facility] st Contact Info) Description 04/12/2024 Telephone [facility] MEDICINE [address] [place], [place] [phone] Name, MD Martín 230 [place] [address] Hospital Follow-up Social History Tobacco Use Types [...] from pt requesting a HDF appt. [place] [facility] [place] of [place]: 04/07/24 Discharge date: 04/12/24 Diagnosed: intestinal infection *Send message to [place] [facility]ordinators documented in this encounter Plan of Treatment Upcoming Encounters Date Type Department Care Team (Late st Contact Info) Description 07/19/2024 4:00 PM EST Office Visit [facility] MEDICINE [address] [place] [phone] Martín Pittman MD [address] [place] [phone] 09/02/2024 2:00 PM EDT Office Visit [facility] ADULT DENTAL [address] [place] [address] Kasia Maldonado [address] [place] [address] documented as of this encounter Visit Diagnoses Not on filedocumented in this encounter Additional Health Concerns Assessment Noted Time PHQ-9 Depression Total Score: 22 024 11:54 AM EST documented as of this encounter Care Teams Director Semiconductor Relationship Specialty Start Date End Date NameMartín MD [address] [place] [phone] PCP - General Family Medicine 07/18/15 documented as of this encounter
== END 2024-07-15 15:55 | disposition home or self-care (01) ==
PROVIDERS: PCP Internal Medicine Geriatric Medicine; Visit Provider Physician Assistant
DX: M17.11 Unilateral primary osteoarthritis, right knee (principal); M16.11 Unilateral primary osteoarthritis, right hip
CPT/HCPCS: 20610; 99213

== ENCOUNTER → 2024-07-15 14:29 | Outpatient (BNV) | payer OTHER, SELFPAY | PROVIDERS: Visit Provider Radiology Diagnostic Radiology | DX: M25.569 Pain in unspecified knee (principal) | CPT/HCPCS: 73562 ==

== ENCOUNTER 2024-07-21 14:41 | Outpatient (AMB) | payer OTHER, SELFPAY ==
[2024-07-21 14:57] VITALS: BMI 29.9
--- NOTE | 2024-07-21 14:57 | A.OFFVIS_ITS ---
Vital Signs 07/21/24 14:57 Height 4 ft 11 in Weight 148 lb 0.011 oz BMI 29.9 Intake Visit Reasons: us biopsy results Intake Note: This patient presents for breast biopsy results. Pt c/o; reports no complaints. Machine Plug Shaper Required: Yes Machine Plug Shaper Language: Salon Customer Experience Specialist Services: Machine Plug Shaper Offered & Declined Accompanied by: Family/Other Allergies No Known Allergies Allergy (Verified 07/21/24 14:58) Medication List - Last Reconciled 07/21/24 by Tim Cifuentes MD amlodipine 5 mg PO DAILY 90 days amoxicillin-pot clavulanate 875-125 mg tabs PO levofloxacin 500 mg PO DAILY 7 days loratadine 10 mg PO DAILY PRN losartan 25 mg PO DAILY omeprazole 20 mg PO DAILY pantoprazole 20 mg PO QAM zolpidem 10 mg PO BEDTIME PRN HPI HPI us biopsy results: Details: 73-year-old female here for follow-up for her diverticulitis as well as for her right breast mass. She would undergone ultrasound biopsy of the right breast mass last 06/23/2024. She tolerated procedure well. She denies hematoma formation. She is also well known to me for diverticular disease. She has had multiple admissions last year for diverticulitis with a phlegmon. In view of this, she had decided to proceed with sigmoid resection. She had gone to [place] last month and says that she again had to be admitted to hospital because of an episode of diverticulitis. She had a CAT scan there at that time. She was given IV antibiotics and was sent home on oral antibiotics. She says she still has some low-grade abdominal pain even until now. She has good oral intake. She denies any fever or chills. [facility] Medical History Breast mass, right Diverticular disease Acute diverticulitis Left hand pain Hospital discharge follow-up Hypertension Syncope and collapse Right knee pain Tendonitis Arthritis Surgical History Status post hardware removal Hx of colonoscopy History of hand surgery Family History Mother Alzheimer disease Hypertension Dementia Father Hypertension Social History Household Members: None Housing: House Do you presently have visiting nurse or other home services: Yes Alcohol intake: never Comment: pt refused bed alarm Patient Tobacco Use Status: Never used Tobacco e-Cigarette/Vaping Use: Never Used service: No Current occupational status: retired Current occupation: rt handed Review of Systems Const Denies chills and Denies fever(s) Card Denies chest pain, Denies dyspnea and Denies dyspnea on exertion Resp Denies cough, Denies dyspnea and Denies dyspnea on exertion GI Denies hematochezia and Denies change in bowel habits Denies hematuria Musc Denies back pain and Denies limited range of motion Neuro Denies focal weakness and Denies convulsions Psych Denies depression and Denies mood swings Physical Exam Vital Signs: BMI result Body Mass Index 29.9 Const General: comfortable and no acute distress Orientation/consciousness: patient oriented x3 Neck Neck: Yes no lymphadenopathy Resp Auscultation: clear to auscultation bilaterally Cardio Rhythm: regular rhythm GI Other: No palpable masses Palpation (GI): Soft to palpation, nontender and no guarding Neuro General: patient oriented x3 Assessment & Plan Assessment & Plan (1) Diverticular disease: Code(s): K57.90 - Diverticulosis of intestine, part unspecified, without perforation or abscess without bleeding Category: Medical Plan: She has had multiple episodes of acute diverticulitis. She describes having at least 5 episodes in the past. Review of her records show that she was admitted to the hospital last March, as well as in [place] last month. She has had multiple CT scans as well showing diverticulitis of the mid sigmoid along with what appears to be a small phlegmonous process last March,. In view of her multiple episodes of acute diverticulitis along with phlegmonous changes, I did explain to her the option of doing sigmoid resection in view of the likelihood of recurrent episodes. I explained the technique of this procedure as a hand assisted laparoscopic sigmoid resection, possible conversion to an open procedure as well as a diverting stoma. I reviewed the risks including but not limited to bleeding, infections, injury to other organs including bowel, urinary tract, anastomotic leak, blood clots, pneumonia, as well as the benefits and alternatives. I also explained to her what to expect postoperatively She says that she already has decided that she will undergo sigmoid resection in view of her multiple episodes. She had a CAT scan done in [place] last month when she was admitted for an episode of acute diverticulitis. I will retrieve this so we can review this as well I also explained to her what to expect postoperatively. (2) Breast mass, right: Code(s): N63.10 - Unspecified lump in the right breast, unspecified quadrant Category: Medical Plan: She had undergone ulcer biopsy for this last month and this shows benign breast tissue with evidence of any malignancy. I assured her the benign nature of this pathology. I reminded her to continue with a regular screening mammograms. Medications: New neomycin administer at 1 PM, 2 PM, and 11 PM the day prior to surgery 1 g (2 x 500 mg) PO TID 6 tabs 0RF sodium,potassium,mag sulfates 17.5-3.13-1.6 gram (Suprep Bowel Prep Kit) DILUTE; drink full amount early evening before AND next morning at least 2 hr before procedure; follow w 960 mL water PO 354 mL 0RF erythromycin Two tablets at 1 pm, 2 pm, and 11 pm the day prior to the procedure 500 mg PO TID 6 tabs 0RF Coding Level of Care Code Est Pt Level 4 (86278) Diagnoses Diverticular disease K57.90 Breast mass, right N63.10
--- OUTSIDE RECORDS SUMMARY | 2024-07-21 17:43 | XMS_ITS | Clinical Summary ---
Author Organization [employer] Address [address] [place] [address] Care Team Providers Care Loan Originator Name Role Phone Name, Martín MARKS Primary Care Provider [phone] Allergies No known active allergies Medications atorvastatin [...] BEDTIME IF NEEDED FOR SLEEP 30 tablet 07/20/19 25 Active amoxicillin-cla vulanate (Augmentin) 875-125 MG tablet TAKE 1 TABLET EVERY 8 HOURS BY ORAL ROUTE, FOR 10 DAYS. 07/14/19 25 Active dicyclomine (Bentyl) 10 MG capsule TAKE 1 CAPSULE 3 TIMES A DAY BY ORAL ROUTE, FOR NEEDED FOR ABDOMINAL CRAMPING. 07/14/19 25 Active zolpidem (Ambien) 10 MG tabletIndicatio ns:Insomnia, unspecified type TAKE 1 TABLET BY MOUTH AT BEDTIME IF NEEDED FOR SLEEP 30 tablet 06/21/19 25 025 Discontinued(Re order (will not trigger notification to Pharmacy)) Active Problems Problem Noted Date Diagnosed Date Osteoarthritis of left shoulder 03/02/2024 Left hand pain 03/02/2024 Hospital discharge follow-up 03/02/2024 Overview (03/02/2024): [place] [facility] to [place] 1 day-biotics discharge p.o. antibiotics [...] 04/03/2023 History of fatty infiltration of liver 3 Toothache 11/20/2022 Localized gingival recession, minimal 11/14/2022 [...] Encounters Date Type Department Care Team Description 07/20/2024 Telephone [facility] MEDICINE [address] [place] [address] Martín Pittman MD Durable Medical Equipment 07/19/2024 4:00 PM EST Office Visit [address] [address] Martín Pittman MD Diverticulitis (Primary Dx); Flu vaccine refused; Primary osteoarthritis of right knee 07/19/2024 Refill [facility] MEDICINE [address] [place] [address] Martín Pittman MD Insomnia, unspecified type 07/15/2024 Telephone [facility] P[facility] [address] [place], [place] [phone] Martín Pittman MD chartprep 07/14/2024 Telephone [facility] MEDICINE [address] [place] [address] Martín Pittman MD ER Follow-up 06/23/2024 Orders Only [facility] External Provider, [facility] 06/21/2024 Refill [facility] MEDICINE [address] [place] [address] Martín Pittman MD Insomnia, unspecified type 05/25/2024 Telephone [facility] MEDICINE [address] [place] [address] [phone] Lupe Cosme FLOR 05/20/2024 Refill [facility] MEDICINE [address] [place] [address] Martín Pittman MD Insomnia, unspecified type 05/17/[address] [address] Marcelle Jeter [place] feb recalls 05/14/[address] [address] Lupe Cosme RN 05/10/2024 1:00 PM EST Office Visit [address] [address] Martín Pittman MD Positive hepatitis C antibody test (Primary Dx); Diverticulitis 05/10/2024 Orders Only GENERIC EXTERNAL DATA DEPARTMENT Provider, Generic External Data 04/23/[address] [address] Martín Pittman MD No Show from Last 3 Months Immunizations Name Administration [...] Sign Reading Time Taken Comments Blood Pressure 137/86 07/19/2024 3:50 PM EST Pulse 87 07/19/2024 3:50 PM EST Temperature 36.2 ??C (97.1 ??F) 07/19/2024 3:50 PM ES T Respiratory Rate 18 07/19/2024 3:50 PM EST Oxygen Saturation 97% 07/19/2024 3:50 PM EST Inhaled Oxygen Concentration - - Weight 66.1 kg (145 lb 12.8 oz) 07/19/2024 3:50 PM EST Height 149.9 cm (4' 11 ) 05/10/2024 1:10 PM EST Body Mass Index 29.45 05/10/2024 1:10 PM EST Plan of Treatment Upcoming Encounters Date Type Department Care Team (Late st Contact Info) Description 09/02/2024 2:00 PM EDT Office Visit [facility] ADULT DENTAL [address] [place], [place] [phone] EricaKasia [address] [facility] [place] [address] 11/03/2024 3:45 PM EDT Office Visit [facility] MEDICINE [address] [facility] [place] [phone] Name, MD Martín Jae [facility] [place] [address] Health Maintenance Due Date Last Done Comments [...] or Tdap) 03/27/2026 03/27/2016 Mammogram 06/23/2026 06/23/2024, 11/2024, 03/30/2024, Additional history exists Lipid Panel [...] 9:33 AM EST 06/23/2024 12:00 PM EST [facility] LABS - 06/24/2024 12:21 PM EST ----- ------- Name: Wendie Faye ?Age/Sex: 73/F ? : 1950 Unit#: [id number] ?? Attend Dr: Tim Cifuentes MD ?Re06/23/24 ?Status: DEP REF ? Location: HO.MAMMO ?Disch: ? ----- ------- SPEC : [id number] ?RECD: 06/23/24 ? STATUS: ??SOUT ? REQ NUM: [id number] ? MADHAV: 06/23/24 ? SUBM DR: Reina [...] submitted in toto in a cassette labeled Ana ESPARZA This case was reviewed intradepartmentally. Copies To: ?? Tim Cifuentes MD ?? [facility] Surgeons ?? [address] ?? [place] [address] ?? [phone] ?? Name,Martín MARKS ?? [address] [facility] ?? [place] [address] ?? [phone] ? CONTINUED ON NEXT PAGE ----- ------- Name: Wendie Faye ?Age/Sex: 73/F ? : 1950 Unit#: [id number] ?? Attend Dr: Tim Cifuentes MD ?Re06/23/24 ?Status: DEP REF ? Location: HO.MAMMO ?Disch: ? ----- ------- SPEC : [id number] ?RECD: 06/23/24 ? STATUS: ??SOUT ? REQ NUM: [id number] ? MADHAV: 06/23/24 ? SUBM DR: Reina Rod DO ? ENTERED: ??06/23/24 ?SP TYPE: Surgical ? OTHR DR: Tim Cifuentes MD ?Name,Martín MARKS ORDERED: ??HE Stain/2, Gross Micro L4 ? COMMENTS: As per the specimen requisition slip the specimen is ?collected at 0933 and placed in formalin at 0940. Copies To: ??(Continued) ?? Reina Rod DO ?? [address] ?? [place] [address] ?? [phone] ----- ------- Signed (signature on file) Catia Marshall 06/24/24 1221 ? ----- ------- ? END OF REPORT ? us Generic External Data Provider LAB BLOOD ORDERAB LES Final Result [facility] [address] [place] [address] [phone] * BREAST NDL CORE BIOPSY RT (06/23/2024 9:00 AM EST) Anatomical Region Laterality Modality Abdomen Ultrasound 06/23/2024 9:00 AM EST Narrative 06/23/2024 10:34 AM EST ? [facility] ? [address] [facility] ?[place] [address] ? Ultrasound Report ? Signed with Addenda ? Patient: Raimundo Abdalla,Eduarda ?MR ?? #: [id number] ? : 1950 ?Acct:[id number] ? Age/Sex: 73 / F ?ADM Date: 02/05/25 ? Loc: HO.MAMMO ? Attending : Tim Cifuentes MD ? Ordering Physician: Tim Cifuentes MD ?? Date of Service: 06/23/24 ?? Procedure(s): US breast ndl core biopsy RT ?? Accession Number(s): [id number] ? cc: Tim Cifuentes MD; Toya,Martín MARKS ?ADDENDUM ? ADDENDUM #1 ? ADDENDUM: [...] 06/23/24 1030 ? DD/ 0900 ? TD/TT: 06/23/24944 ? Information Strategist: ? Procedure Note Willow, Courtney - 06/25/2024 [facility] [address] [place] [address] Ultrasound Report Signed with Addenda Patient: Wendie Faye MMR #: [id number] : 1950cct:[id number] Age/Sex: 73 / FADM Date: 06/23/24 Loc: HO.MAMMO Attending Dr: Tim Cifuentes MD Ordering Physician: Tim Cifuentes MD Date of Service: 06/23/24 Procedure(s): US breast ndl core biopsy RT Accession Number(s): [id number] cc: Tim Cifuentes MD; Name,Martín MARKS ADDENDUM [...] 06/23/24 1030 DD/ 0900 TD/TT: 06/23/24 0945 Information Strategist: [facility] External Provider IMG US PROCEDURES Edited Result - Final * BI Mammogram Diagnostic Tomosynthesis Right (06/23/2024 9:00 AM EST) Anatomical Region Laterality Modality Breast Right Mammography 06/23/2024 9:00 AM EST Narrative 06/23/2024 10:34 AM EST ? [facility] [place] [facility] ? [address] ?[place] [address] ? Mammography Report ? Signed with Addenda ? Patient: Raimundo Abdalla,Eduarda ?MR ?? #: [id number] ? : 1950 ?Acct:[id number] ? Age/Sex: 73 / F ?ADM Date: 06/23/24 ? Loc: HO.MAMMO ? Attending Dr: Tim Cifuentes MD ? Ordering Physician: Tim Cifuentes MD ?Results: ? Date of Service: 06/23/24 ?Follow Up: ? Procedure(s): MM tomosynthesis diagnostic RT ?? Accession Number(s): [id number] ? cc: Tim Cifuentes MD; Toya,Martín MARKS ?ADDENDUM ? ADDENDUM #1 ? ADDENDUM: [...] DD/ 0900 ? TD/TT: 06/23/24 0945 ? Information Strategist: ? Procedure Note Willow, Image - 07/02/2024 [facility] [address] [place] [address] [place] [address] Mammography Report Signed with Addenda Patient: Wendie Faye [facility] #: [id number] : 1950cct:[id number] Age/Sex: 73 / FADM Date: 06/23/24 Loc: HO.MAMMO Attending Dr: Tim Cifuentes MD Ordering Physician: Tim Cifuentes MDResults: Date of Service: 06/23/24Follow Up: Procedure(s): MM tomosynthesis diagnostic RT Accession Number(s): [id number] cc: Tim Cifuentes MD; Name,Martín MARKS ADDENDUM [...] 06/23/24 1030 DD/ 0900 TD/TT: 06/23/24 0945 Information Strategist: [facility] External Provider IMG BI PROCEDURES Edited Result - Final * BI US Breast Limited Right (05/25/2024 9:45 AM EST) Anatomical Region Laterality Modality Breast Right Ultrasound 05/25/2024 9:45 AM EST Narrative 05/25/2024 10:32 AM EST ? [facility] ? [address] ?[place] [address] ? Ultrasound Report ? Signed ? Patient: Raimundo Abdalla,Eduarda ?MR ?? #: [id number] ? : 1950 ?Acct:[id number] ? Age/Sex: 73 / F ?ADM Date: 01/07/25 ? Loc: HO.MAMMO ? Attending : Martín Name MD ? Ordering Physician: Name,Martín MARKS ?? Date of Service: 05/25/24 ?? Procedure(s): US breast RT limited mamm only ?? Accession Number(s): [id number] ? cc: Name,Martín MARKS ? EXAMINATION: ?? [...] next mammogram. ? Electronically signed by: ??Reina Tavonfiordaliza DO ??05/25/2024 10:30 AM EST ?? RP ? Dictated By: ?Reina Rod DO ? Signed By: ?<Electronically signed by Reina Rod, DO in OV> ? 05/25/24 1030 ? DD/ 0945 ? TD/TT: 05/25/24 0957 ? Information Strategist: ? Procedure Note Willow, Image - 01/07/2025 [facility] [address] [place] [address] [place] [address] Ultrasound Report Signed Patient: Wendie Faye MMR #: [id number] : 1950cct:[id number] Age/Sex: 73 / FADM Date: 05/25/24 Loc: HO.MAMMO Attending Dr: Martín Pittman MD Ordering Physician: Martín Pittman MD Date of Service: 05/25/24 Procedure(s): US breast RT limited mamm only Accession Number(s): [id number] cc: Name,Martín MARKS EXAMINATION: MM DIAGNOSTIC DIGITAL [...] for their next mammogram. Electronically signed by: Renia Rod DO 05/25/2024 10:30 AM [facility] Dictated By: Reina Rod DO Signed By: <Electronically signed by Reina Rod DO in OV> 05/25/24 1030 DD/ TD/TT: 05/25/24 0957 Information Strategist: us Martín DOMÍNGUEZ PROCEDURES Edited Result - Final * BI Mammogram Diagnostic Tomosynthesis added right (05/25/2024 9:05 AM EST) Anatomical Region Laterality Modality Breast Left Mammography 05/25/2024 9:05 AM EST Narrative 05/25/2024 10:33 AM EST ? [facility] ? [address] ?[place] [address] ? Mammography Report ? Signed ? Patient: Raimundo Abdalla,Eduarda ?MR ?? #: [id number] ? : 1950 ?Acct:[id number] ? Age/Sex: 73 / F ?ADM Date: 05/25/24 ? Loc: HO.MAMMO ? Attending Dr: Martín Name MD ? Ordering Physician: Name,Martín MD ?Results: 4Suspiciou ?? s Finding ? Date of Service: 05/25/24 ?Follow Up: Biopsy Recommend ?? ed ? Procedure(s): MM tomosynthesis added views R ?? Accession Number(s): [id number] ? cc: Name,Martín MARKS ? EXAMINATION: ?? [...] DD/ 0905 ? TD/TT: 05/25/24 0920 ? Information Strategist: ? Procedure Note Donotuseinterpreter, Image - 05/25/2024 [facility] [address] [place], [place] [address] Mammography Report Signed Patient: Wendie Faye MMR #: [id number] : 3Acct:[id number] Age/Sex: 73 / FADM Date: 05/25/24 Loc: HO.MAMMO Attending Dr: Martín Pittman MD Ordering Physician: Martín Pittman MDResults: 4Suspiciou s Finding Date of Service: 05/25/24Follow Up: Biopsy Recommend ed Procedure(s): MM tomosynthesis added views R Accession Number(s): [id number] cc: Martín Pittman MD EXAMINATION: MM DIAGNOSTIC [...] 05/25/24 1030 DD/ 0905 TD/TT: 05/25/24 0920 Information Strategist: Martín Pittman MD IMOscar BI PROCEDURES Edited Result - Final * Hepatitis C Ab (05/10/2024 1:37 PM EST) Hepatitis C Antibody Nonreactive Nonreactive [facility] Comment:Antibodies to HCV no t detected; does not exclude early acuteHCV infection. 05/10/2024 1:37 PM EST 05/10/2024 4:01 PM EST Generic External Data Provider LAB BLOOD ORDERAB LES Final Result [facility] [address] [place] [phone] * HCV RNA BY PCR, QN RFX DARIN (05/10/2024 1:37 PM EST) Pathologist [facility] HCV RNA PCR QN <15 NOT DETECTED NOT DETECTED IU/mL [facility] HCV RNA PCR QN <1.18 NOT DETECTED NOT DETECTED Log IU/mL [facility] HCV RNA COMMENT SEE NOTE [facility] Comment:For additional infor mation, please refer tohttp://education.Sensorflare PC/faq/ZHD92w1(This link is being provided for informational/Educational purposes only.)THIS TEST WAS PERFORMED AT:[facility] [place] [phone] MCCLAIN MD HCV RNA GENOTYPE,LIPA TNP [facility] Comment:Test not indicated. 05/10/2024 1:37 PM EST 05/10/2024 4:01 PM EST Generic External Data Provider LAB BLOOD ORDERAB LES Final Result Performing Organization Address [facility]/ZIP Co de Phone Number [facility] [address] [place] [phone] * Hepatitis C Antibody with Reflex to HCV, RNA, Quantitative, Real-Time PCR (05/10/2024 1:37 PM EST) Pathologist [facility] Hepatitis C Antibody Nonreactive Nonreactive [facility] Comment:Antibodies to HCV no t detected; does not exclude early acuteHCV infection. Blood Venous blood specimen / Unknown 05/10/2024 1:37 PM EST 05/10/2024 4:01 PM EST us Martín Pittman MD LAB BLOOD ORDERABLES Final Resul t Performing Organization Address [facility] Co de Phone Number [facility] [address] [place] [phone] * (ABNORMAL) Colonoscopy (08/12/2023) Pathologist [facility] Colonoscopy Abnormal(A ) Normal Martín Pittman MD HEALTH MAINTENANCE Final Result * (ABNORMAL) Lipid Panel, Standard (07/24/2022 9:07 AM EST) [facility] Cholesterol, Total 206(H) <200 mg/dL [facility] HDL Cholesterol 40(L) > OR = 50 mg/dL [facility] Triglycerides 252(H) <150 mg/dL [facility] Comment: If a non-fasting specimen was collected, consider repeat triglyceride testing on a fasting specimen if clinically indicated. Arian et al. J. of Clin. Lipidol. 2015;9:129-169. LDL Cholesterol 127(H) mg/dL (calc) [facility] Comment: Reference range: <100 Desirable range <100 mg/dL for primary prevention; ?? <70 mg/dL for patients with CHD or diabetic patients with > or = 2 CHD risk factors. LDL-C is now calculated using the James-Chand calculation, which is a validated novel method providing better accuracy than the Friedewald equation in the estimation of LDL-C. James SS et al. SHEREE. 2013;310(19): 6936-1805 (http://education.LOG607/faq/SWG496) Chol/HDLC Ratio 5.2(H) <5.0 (calc) [facility] Non-HDL Cholesterol 166(H) <130 mg/dL (calc) [facility] Comment: For patients with diabetes plus 1 major ASCVD risk factor, treating to a non-HDL-C goal of <100 mg/dL (LDL-C of <70 mg/dL) is considered a therapeutic option. Blood Venous blood specimen / Unknown 07/24/2022 9:07 AM EST 07/24/2022 9:08 AM EST Narrative [facility] - 07/24/2022 9:39 PM EST FASTING:NO FASTING: NO Martín Name LAB BLOOD ORDERABLES Final Resul t [facility] [address] [place] [address] [facility] [address] [facility], ([address]) [place] [address] * Fecal immunochemical (07/15/2022) Fecal Immunoassay Test (External) Negative Stool Rectal contents / Unknown [facility] Provider LAB BODY FLUIDS AND STOOL S ORDERABLES Final Result from Last 3 Months or Most Recently Relevant to Health Maintenance Insurance [facility] Care Teams Loan Originator Relationship Specialty Start Date End Date Name, MD Martín [address] [place] [address] PCP - General Family Medicine 07/18/15
--- OUTSIDE RECORDS SUMMARY | 2024-07-21 17:43 | XMS_ITS | Encounter Summary ---
Author Organization [facility] [facility] Address [address] [facility] [address] [place] [address] Care Team Providers Care Nursery Attendant Name Role Phone Name, Martín MARKS Primary Care Provider [phone] Encounter Details Date Type Department Care Team (Latest Contact Info) Description 11/01/2021 Abstract [facility] CONVERSIONS Dental, Provider, DDS Social History Tobacco [...] Description 09/02/2024 2:00 PM EDT Office Visit [facility] ADULT DENTAL [address] [place] [phone] Erica Kasia [address] [place] [address] 11/03/2024 3:45 PM EDT Office Visit [facility] MEDICINE [address] [place] [address] Name, MD Martín [address] [place] [address] documented as of this encounter Visit Diagnoses Not on filedocumented in this encounter Care Teams Nursery Attendant Relationship Specialty Start Date End Date NameMartín MD [address] [place] [address] PCP - General Family Medicine 07/18/15 documented as of this encounter
--- OUTSIDE RECORDS SUMMARY | 2024-07-21 17:43 | XMS_ITS | Encounter Summary ---
Author Organization [employer] [facility] Address [address] [facility] 7t [place] [address] Care Team Providers Care Manager Baby Name Role Phone Name, Martín MARKS Primary Care Provider [phone] Encounter Details Date Type Department Care Team (Latest Contact Info) Description 07/26/2019 Abstract [facility] CONVERSIONS Dental, Provider, DDS Social [...] Description 09/02/2024 2:00 PM EDT Office Visit [facility] ADULT DENTAL [address] [place] [address] Erica Kasia 230 [place] [address] 11/03/2024 3:45 PM EDT Office Visit [facility] MEDICINE 230 [place] [address] NameMartín MD 230 [place] [address] documented as of this encounter Visit Diagnoses Not on filedocumented in this encounter Care Teams Manager Baby Relationship Specialty Start Date End Date Martín Pittman MD [address] [place] [address] PCP - General Family Medicine 07/18/15 documented as of this encounter
--- OUTSIDE RECORDS SUMMARY | 2024-07-21 17:43 | XMS_ITS | Encounter Summary ---
Author Organization [employer] Address [address] [facility] 7t [place] [address] Care Team Providers Care Social Studies Department Chair Name Role Phone Name, Martín MARKS Primary Care Provider [phone] Reason for Visit * Reason Comments Med Refill Encounter Details Date Type Department Care Team (Late st Contact Info) Description 07/26/2022 Refill [facility] MEDICINE [address] [place] [address] [phone] Name, MD Martín 230 [place] [address] Insomnia, unspecified type Social History Tobacco Use [...] Description 09/02/2024 2:00 PM EDT Office Visit [facility] ADULT DENTAL 230 [place], [place] [phone] Kasia Maldonado 230 [place] [address] 11/03/2024 3:45 PM EDT Office Visit [facility] MEDICINE 230 [place] [address] Name, [place] [address] documented as of this encounter Visit Diagnoses Diagnosis Insomnia, unspecified type documented in this encounter Care Teams Social Studies Department Chair Relationship Specialty Start Date End Date Name, MD [place] [address] PCP - General Family Medicine 07/18/15 documented as of this encounter
--- OUTSIDE RECORDS SUMMARY | 2024-07-21 17:43 | XMS_ITS | Encounter Summary ---
Author Organization [employer] Address [address] [facility] 7t [place] [address] Care Team Providers Care Patient Service Rep Name Role Phone Name, Martín MARKS Primary Care Provider [phone] Encounter Details Date Type Department Care Team (Late st Contact Info) Description 03/07/2023 Orders Only [facility] MED & PEDS [address] [place], [place] [phone] Geno Malave LPN Social History Tobacco Use [...] Description 09/02/2024 2:00 PM EDT Office Visit [facility] ADULT DENTAL 230 [place] [address] Erica, Kasia [address] [place] [address] 11/03/2024 3:45 PM EDT Office Visit [facility] MEDICINE 230 [place] [address] Name, MD Martín 230 [place] [address] documented as of this encounter Procedures Procedure Name Priority Date/Time Associated Diagnosis Comments BI MAMMOGRAM SCREENING TOMOSYNTHESIS BILATERAL Routine 03/11/2023 2:45 PM EDT documented in this encounter Results * BI Mammogram Screening Tomosynthesis Bilateral (03/11/2023 2:45 PM EDT) Anatomical Region Laterality Modality Breast Bilateral Mammography 03/11/2023 2:45 PM EDT Narrative 03/29/2023 1:32 PM EST ? [facility] ? [address] [address] ? Mammography Report ? Signed ? Patient: Raimundo Abdalla,Eduarda ?MR ?? #: [id number] ? : 1950 ?Acct:[id number] ? Age/Sex: 72 / F ?ADM Date: 10/24/23 ? Loc: HO.MAMMO ? Attending : Martín Pittman MD ? Ordering Physician: Toya,Martín MARKS ?Results: 1Negative ? Date of Service: 03/11/23 ?Follow Up: 1 Year From Orig ?? inal Mammogram ? Procedure(s): MM tomosynthesis screening BI ?? Accession Number(s): [id number] ? cc: Toya,Martín MARKS ? EXAMINATION: ?? [...] ? DD/DT: 03/11/ 1445 ? TD/TT: ? Sales Host: ? Procedure Note Donotuseinterpreter, Image - 03/29/2023 [facility] [address] [place] [address] Mammography Report Signed Patient: Wendie Faye MMR #: [id number] : 3Acct:[id number] Age/Sex: 72 / FADM Date: 03/11/23 Loc: HO.MAMMO Attending Dr: Martín Pittman MD Ordering Physician: Martín Pittman MDResults: 1Negative Date of Service: 03/11/23Follow Up: 1 Year From Orig inal Mammogram Procedure(s): MM tomosynthesis screening BI Accession Number(s): [id number] cc: Martín Pittman MD EXAMINATION: MM SCREENING [...] in OV> 03/29/23 1329 DD/ 1445 TD/TT: Sales Host: Martín Pittman MD IMG BI PROCEDURES Edited Result - Final documented in this encounter Visit Diagnoses Not on filedocumented in this encounter Care Teams Patient Service Rep Relationship Specialty Start Date End Date Name, MD Martín 230 [place] [address] PCP - General Family Medicine 07/18/15 documented as of this encounter
--- OUTSIDE RECORDS SUMMARY | 2024-07-21 17:43 | XMS_ITS | Encounter Summary ---
Author Organization [employer] [facility] Address [address] [facility] 7t [place] [address] Care Team Providers Care Labor Arbitrator Hearing Office Name Role Phone Name, Martín MARKS Primary Care Provider [phone] Encounter Details Date Type Department Care Team (Latest Contact Info) Description 11/06/2020 Abstract [facility] CONVERSIONS Dental, Provider, DDS Social History [...] Description 09/02/2024 2:00 PM EDT Office Visit [facility] ADULT DENTAL [address] [place] [address] Erica Kasia 230 [place] [address] 11/03/2024 3:45 PM EDT Office Visit [facility] MEDICINE 230 [place] [address] Name, MD Martín 230 [place] [address] documented as of this encounter Visit Diagnoses Not on filedocumented in this encounter Care Teams Labor Arbitrator Hearing Office Relationship Specialty Start Date End Date NameMartín MD [address] [place] [address] PCP - General Family Medicine 07/18/15 documented as of this encounter
--- OUTSIDE RECORDS SUMMARY | 2024-07-21 17:44 | XMS_ITS | Encounter Summary ---
Author Organization [employer] Address [address] [facility] 7t [place] [address] Care Team Providers Care Senior Research Analyst Name Role Phone Name, Martín MARKS Primary Care Provider [phone] Reason for Visit * Reason Onset Date Comments Hospital Follow-up 04/12/2024 Encounter Details Date Type Department Care Team ([facility] st Contact Info) Description 04/12/2024 Telephone [facility] MEDICINE 230 [place], [place] [phone] Name, MD Martín 230 [place] [address] Hospital Follow-up Social History Tobacco Use Types [...] from pt requesting a HDF appt. Hospital: [facility] Date of admission: 04/07/24 Discharge date: 04/12/24 Diagnosed: intestinal infection *Send message to [place] Clinical Care Coordinators documented in this encounter Plan of Treatment Upcoming Encounters Date Type Department Care Team (Late st Contact Info) Description 09/02/2024 2:00 PM EDT Office Visit [facility] ADULT DENTAL [address] [place] [address] Erica, Kasia 230 [place] [address] 11/03/2024 3:45 PM EDT Office Visit [facility] MEDICINE 230 [place] [address] Name, MD Martín [address] [place] [address] documented as of this encounter Visit Diagnoses Not on filedocumented in this encounter Additional Health Concerns Assessment Noted Time PHQ-9 Depression Total Score: 22 024 11:54 AM EST documented as of this encounter Care Teams Senior Research Analyst Relationship Specialty Start Date End Date Name, MD Martín [address] [place] [address] PCP - General Family Medicine 07/18/15 documented as of this encounter
--- OUTSIDE RECORDS SUMMARY | 2024-07-21 17:44 | XMS_ITS | Encounter Summary ---
Author Organization [employer] Address [address] [facility] 7t [place] [address] Care Team Providers Care Digitizer Name Role Phone Name, Martín MARKS Primary Care Provider [phone] Reason for Visit * Reason Comments Med Refill Encounter Details Date Type Department Care Team (Late st Contact Info) Description 09/25/2022 Refill [facility] MEDICINE [address] [place] [address] [phone] Name, MD Martín [address] [place] [address] Insomnia, unspecified type Social History Tobacco Use [...] Description 09/02/2024 2:00 PM EDT Office Visit [facility] ADULT DENTAL 230 [place], [place] [phone] Erica, Kasia 230 [place] [address] 11/03/2024 3:45 PM EDT Office Visit [facility] MEDICINE [address] [place] [address] Name, MD Martín 230 [place] [address] documented as of this encounter Visit Diagnoses Diagnosis Insomnia, unspecified type documented in this encounter Care Teams Digitizer Relationship Specialty Start Date End Date Name, MD Martín 230 [place] [address] PCP - General Family Medicine 07/18/15 documented as of this encounter
--- OUTSIDE RECORDS SUMMARY | 2024-07-21 17:44 | XMS_ITS | Encounter Summary ---
Author Organization [employer] Address [address] [facility] 7t [place] [address] Care Team Providers Care Dual Rate Supervisor Name Role Phone Name, Martín MARKS Primary Care Provider [phone] Reason for Visit * Reason Onset Date Comments Durable Medical Equipment 07/20/2024 Encounter Details Date Type Department Care Team (Late st Contact Info) Description 07/20/2024 Telephone [facility] MEDICINE 230 [place], [place] [phone] Name, MD Martín 230 [place] [address] Durable Medical Equipment Social History Tobacco Use Types Packs/Day Years [...] encounter Miscellaneous Notes * Telephone Encounter - Rogelio Godwin - 07/20/2024 2:21 PM EST TC from pt requesting Recliner chair . Script to be sent to [employer] documented in this encounter Plan of Treatment Upcoming Encounters Date Type Department Care Team (Late st Contact Info) Description 09/02/2024 2:00 PM EDT Office Visit [facility] ADULT DENTAL 230 [place] [address] Erica, Kasia 230 [place] [address] 11/03/2024 3:45 PM EDT Office Visit [facility] MEDICINE 230 [place] [address] NameMartín MD 230 [place] [address] documented as of this encounter Visit Diagnoses Not on filedocumented in this encounter Additional Health Concerns Assessment Noted Time PHQ-9 Depression Total Score: 22 024 11:54 AM EST documented as of this encounter Care Teams Dual Rate Supervisor Relationship Specialty Start Date End Date Martín Pittman MD [address] [place] [address] PCP - General Family Medicine 07/18/15 documented as of this encounter
--- OUTSIDE RECORDS SUMMARY | 2024-07-21 17:44 | XMS_ITS | Encounter Summary ---
Author Organization [employer] Address [address] [facility] 7t [place] [address] Care Team Providers Care Human Resources Executive Name Role Phone Name, Martín MARKS Primary Care Provider [phone] Reason for Visit * Reason Onset Date Comments Med Refill 07/19/2024 Encounter Details Date Type Department Care Team (Late st Contact Info) Description 07/19/2024 Refill [facility] MEDICINE 230 [place], [place] [phone] Name, MD Martín 230 [place] [address] Insomnia, unspecified type Social History Tobacco Use [...] Telephone Encounter - Geno Malave LPN - 07/19/2024 11:20 AM EST SUPERVISOR MAINTENANCE AND CUSTODIANS checked on 07/19/24. Expected 07/19/24. * Telephone Encounter - Kasia Mendiola - 07/19/2024 11:12 AM EST TC from pt requesting medication refill. Medications needing refill : zolpidem (Ambien) 10 MG tablet To be sent to: [facility]/pharmacy #[id number] documented in this encounter Plan of Treatment Upcoming Encounters Date Type Department Care Team (Late st Contact Info) Description 09/02/2024 2:00 PM EDT Office Visit [facility] ADULT DENTAL 230 [place], [place] [phone] Kasia Maldonado [address] [place], [place] [phone] 11/03/2024 3:45 PM EDT Office Visit [facility] MEDICINE [address] [place] [address] Name, MD Martín 230 [place] [address] documented as of this encounter Visit Diagnoses Diagnosis Insomnia, unspecified type documented in this encounter Additional Health Concerns Assessment Noted Time PHQ-9 Depression Total Score: 22 024 11:54 AM EST documented as of this encounter Care Teams Human Resources Executive Relationship Specialty Start Date End Date Name, MD Martín 230 [place] [address] PCP - General Family Medicine 07/18/15 documented as of this encounter
--- OUTSIDE RECORDS SUMMARY | 2024-07-21 17:44 | XMS_ITS | Encounter Summary ---
Author Organization [employer] Address 75 [facility] 7t [place] [address] Care Team Providers Care Fell Cutter Name Role Phone Name, Martín MARKS Primary Care Provider [phone] Encounter Details Date Type Department Care Team ([facility] st Contact Info) Description 03/25/2023 Orders Only [facility] MEDICINE 230 [place], [place] [phone] Name, MD Martín 230 [place] [address] Social History Tobacco Use Types Packs/Day Years [...] Description 09/02/2024 2:00 PM EDT Office Visit [facility] ADULT DENTAL 230 [place] [address] Erica, Kasia 230 [place] [address] 11/03/2024 3:45 PM EDT Office Visit [facility] MEDICINE 230 [place] [address] Name, MD Martín [address] [place] [address] documented as of this encounter Visit Diagnoses Not on filedocumented in this encounter Care Teams Fell Cutter Relationship Specialty Start Date End Date Name, MD Martín [address] [place] [address] PCP - General Family Medicine 07/18/15 documented as of this encounter
--- OUTSIDE RECORDS SUMMARY | 2024-07-21 17:44 | XMS_ITS | Encounter Summary ---
Author Organization [employer] Address 75 [facility] 7t [place] [address] Care Team Providers Care Improvement Lead Name Role Phone Name, Martín MARKS Primary Care Provider [phone] Reason for Visit * Reason Onset Date Comments Med Refill 10/21/2022 Encounter Details Date Type Department Care Team ([facility] Contact Info) Description 10/21/2022 Refill [facility] MEDICINE 230 [place], [place] [phone] Name, MD Martín 230 [place] [address] Insomnia, unspecified type Social History Tobacco Use [...] Upcoming Encounters Date Type Department Care Team ([facility] Contact Info) Description 09/02/2024 2:00 PM EDT Office Visit [facility] ADULT DENTAL 230 [place] [address] Kasia Maldonado [address] [place] [address] 11/03/2024 3:45 PM EDT Office Visit [facility] MEDICINE 230 [place] [address] Name, MD Martín 230 [place] [address] documented as of this encounter Visit Diagnoses Diagnosis Insomnia, unspecified type documented in this encounter Care Teams Improvement Lead Relationship Specialty Start Date End Date Name, MD Martín [address] [place] [address] PCP - General Family Medicine 07/18/15 documented as of this encounter
--- OUTSIDE RECORDS SUMMARY | 2024-07-21 17:44 | XMS_ITS | Encounter Summary ---
Author Organization [employer] Address 75 [facility] 7t [place] [address] Care Team Providers Care Bridge Construction Inspector Name Role Phone Name, Martín MARKS Primary Care Provider [phone] Reason for Visit * Reason Onset Date Comments Med Refill 07/22/2023 Encounter Details Date Type Department Care Team ([facility] st Contact Info) Description 07/22/2023 Telephone [facility] MEDICINE 230 [place], [place] [phone] Name, MD Martín 230 [place] [address] Med Refill Social History Tobacco Use Types [...] MG tablet To be sent to: [facility]/pharmacy #[id number] [place] [address] documented in this encounter Plan of Treatment Upcoming Encounters Date Type Department Care Team (Late st Contact Info) Description 09/02/2024 2:00 PM EDT Office Visit [facility] ADULT DENTAL 230 [place] [address] Erica, Kasia 230 [place] [address] 11/03/2024 3:45 PM EDT Office Visit [facility] MEDICINE 230 [place] [address] Name, MD Martín 230 [place] [address] documented as of this encounter Visit Diagnoses Not on filedocumented in this encounter Care Teams Bridge Construction Inspector Relationship Specialty Start Date End Date Name, MD Martín 230 [place] [address] PCP - General Family Medicine 07/18/15 documented as of this encounter
--- OUTSIDE RECORDS SUMMARY | 2024-07-21 17:44 | XMS_ITS | Encounter Summary ---
Author Organization [employer] Address 75 [facility] 7t [place] [address] Care Team Providers Care Perforator Loader Name Role Phone Name, Martín MARKS Primary Care Provider [phone] Reason for Visit * Reason Onset Date Comments chartprep 07/15/2024 Encounter Details Date Type Department Care Team (Late st Contact Info) Description 07/15/2024 Telephone [facility] MED & PEDS [address] [place], [place] [phone] Name, MD Martín 230 [place] [address] chartprep Social History Tobacco Use Types Packs/Day [...] Description 09/02/2024 2:00 PM EDT Office Visit [facility] ADULT DENTAL [address] [place] [address] Erica, Kasia 230 [place] [address] 11/03/2024 3:45 PM EDT Office Visit [facility] MEDICINE 230 [place] [address] NameMartín MD [address] [place] [address] documented as of this encounter Visit Diagnoses Not on filedocumented in this encounter Additional Health Concerns Assessment Noted Time PHQ-9 Depression Total Score: 22 024 11:54 AM EST documented as of this encounter Care Teams Perforator Loader Relationship Specialty Start Date End Date NameMartín MD [address] [place] [address] PCP - General Family Medicine 07/18/15 documented as of this encounter
--- OUTSIDE RECORDS SUMMARY | 2024-07-21 17:44 | XMS_ITS | Encounter Summary ---
Author Organization [employer] Address [address] [facility] 7t [place] [address] Care Team Providers Care Carpet Inspector Name Role Phone Name, Martín MARKS Primary Care Provider [phone] Reason for Visit * Reason Onset Date Comments Med Refill 06/21/2024 Encounter Details Date Type Department Care Team (Late st Contact Info) Description 06/21/2024 Refill [facility] MEDICINE 230 [place], [place] [phone] Name, MD Martín 230 [place] [address] Insomnia, unspecified type Social History Tobacco Use [...] Malave LPN - 06/21/2024 2:29 PM EST FLIGHT SECURITY SPECIALIST checked on 06/21/24. Next appointment 07/19/24. * Telephone Encounter - Himnashu Kerns - 06/21/2024 2:00 PM EST TC from pt requesting medication refill. Medications needing refill : zolpidem (Ambien) 10 MG tablet To be sent to: [facility]/pharmacy #[id number] documented in this encounter Plan of Treatment Upcoming Encounters Date Type Department Care Team (Late st Contact Info) Description 09/02/2024 2:00 PM EDT Office Visit [facility] ADULT DENTAL 230 [place], [place] [phone] EricaLongAksia 230 [place], [place] [phone] 11/03/2024 3:45 PM EDT Office Visit [facility] MEDICINE 230 [place] [address] Name, MD Martín 230 [place] [address] documented as of this encounter Visit Diagnoses Diagnosis Insomnia, unspecified type documented in this encounter Additional Health Concerns Assessment Noted Time PHQ-9 Depression Total Score: 22 024 11:54 AM EST documented as of this encounter Care Teams Carpet Inspector Relationship Specialty Start Date End Date Name, MD Martín 230 [place] [address] PCP - General Family Medicine 07/18/15 documented as of this encounter
--- OUTSIDE RECORDS SUMMARY | 2024-07-21 17:44 | XMS_ITS | Encounter Summary ---
Author Organization [employer] Address 75 [facility] 7t [place] [address] Care Team Providers Care Dredge Worker Name Role Phone Name, Martín MARKS Primary Care Provider [phone] Reason for Visit * Reason Comments Med Refill Encounter Details Date Type Department Care Team ([facility] st Contact Info) Description 05/24/[address] [facility] MEDICINE 230 [place], [place] [phone] Name, MD Martín 230 [place] [address] Allergic rhinitis, unspecified seasonality, unspecified trigger Social [...] 2:00 PM EDT Office Visit [facility] ADULT DENTAL [address] [place] [address] EricaLongKasia 230 [place] [address] 11/03/2024 3:45 PM EDT Office Visit [facility] MEDICINE [address] [place] [address] NameMartín MD [address] [place] [address] documented as of this encounter Visit Diagnoses Diagnosis Allergic rhinitis, unspecified seasonality, unspecified trigger documented in this encounter Care Teams Dredge Worker Relationship Specialty Start Date End Date Martín Pittman MD [address] [place] [address] PCP - General Family Medicine 07/18/15 documented as of this encounter
--- OUTSIDE RECORDS SUMMARY | 2024-07-21 17:44 | XMS_ITS | Encounter Summary ---
Author Organization [employer] Address [address] [facility] 7t [place] [address] Care Team Providers Care Caseworker Protective Services Name Role Phone Name, Martín MARKS Primary Care Provider Encounter Details Date Type Department Care Team (Late st Contact Info) Description 06/23/2024 Orders Only [facility] External Provider, [facility] Social History Tobacco Use Types Packs/Day [...] Description 09/02/2024 2:00 PM EDT Office Visit [facility] ADULT DENTAL [address] [place], [place] [phone] Erica, Kasia [address] [place], [place] [phone] 11/03/2024 3:45 PM EDT Office Visit [facility] MEDICINE [address] [place], [place] [phone] Name, MD Martín [address] [place] [address] documented as of this encounter Procedures Procedure [...] 9:33 AM EST 06/23/2024 12:00 PM EST [facility] LABS - 06/24/2024 12:21 PM EST ----- ------- Name: Wendie Faye ?Age/Sex: 73/F ? : 1950 Unit#: [id number] ?? Attend Dr: Tim Cifuentes MD ?Re06/23/24 ?Status: DEP REF ? Location: HO.MAMMO ?Disch: ? ----- ------- SPEC : [id number] ?RECD: 06/23/24-1199 ? STATUS: ??SOUT ? REQ NUM: [id number] ? MADHAV: 06/23/244150 ? SUBM DR: Reina Rod DO ? ENTERED: ??06/23/24-0421 ?SP TYPE: Surgical ? OTHR DR: Tim [...] Copies To: ?? Tim Cifuentes MD ?? [facility] General Surgeons ?? [address] [facility] ?? [place] [address] ?? [phone] ?? Name,Martín MARKS ?? [address] [facility] ?? [place] [address] ?? [phone] ? CONTINUED ON NEXT PAGE ----- ------- Name: Wendie Faye ?Age/Sex: 73/F ? : 1950 Unit#: [id number] ?? Attend Dr: Tim Cifuentes MD ?Re06/23/24 ?Status: DEP REF ? Location: HO.MAMMO ?Disch: ? ----- ------- SPEC : [id number] ?RECD: 06/23/24-1199 ? STATUS: ??SOUT ? REQ NUM: [id number] ? MADHAV: 06/23/24 ? SUBM DR: Reina Rod DO ? ENTERED: ??06/23/24-3218 ?SP TYPE: Surgical ? OTHR DR: Tim Cifuentes MD ?Name,Martín MARKS ORDERED: ??HE Stain/2, Gross Micro L4 ? COMMENTS: As per the specimen requisition slip the specimen is ?collected at 0933 and placed in formalin at 0940. Copies To: ??(Continued) ?? Reina Rod DO ?? [address] ?? [place] [address] ?? [phone] ----- ------- Signed (signature on file) Catia Marshall 06/24/24 1221 ? ----- ------- ? END OF REPORT ? us Generic External Data Provider LAB BLOOD ORDERAB LES Final Result [facility] LABS [address] [place] [address] [phone] * US BREAST NDL CORE BIOPSY RT (06/23/2024 9:00 AM EST) Anatomical Region Laterality Modality Abdomen Ultrasound 06/23/2024 9:00 AM EST Narrative 06/23/2024 10:34 AM EST ? [facility] ? [address] ?[place] [address] ? Ultrasound Report ? Signed with Addenda ? Patient: Raimundo Abdalla,Eduarda ?MR ?? #: [id number] ? : 1950 ?Acct:[id number] ? Age/Sex: 73 / F ?ADM Date: 06/23/24 ? Loc: HO.MAMMO ? Attending Dr: Tim Cifuentes MD ? Ordering Physician: Tim Cifuentes MD ?? Date of Service: 06/23/24 ?? Procedure(s): US breast ndl core biopsy RT ?? Accession Number(s): [id number] ? cc: Tim Cifuentes MD; Toya,Martín MARKS [...] are made available. ? Electronically signed by: ??Renia Rod DO ??06/23/2024 10:30 AM EST ? Dictated By: ?Reina Rod DO ? Signed By: ?<Electronically signed by Reina Rod, in OV> ? 06/23/24 1030 ? DD/ 0900 ? TD/TT: 06/23/24 0945 ? Mattress Filler: ? Procedure Note Donteresitater, Image - 06/25/2024 [facility] [address] [place], [place] [address] Ultrasound Report Signed with Addenda Patient: Wendie Faye MMR #: [id number] : 3Acct:[id number] Age/Sex: 73 / FADM Date: 06/23/24 Loc: RENÉ Attending Dr: Tim Cifuentes MD Ordering Physician: Tim Cifuentes MD Date of Service: 06/23/24 Procedure(s): US breast ndl core biopsy RT Accession Number(s): [id number] cc: Tim Cifuentes MD; Name,Martín MARKS ADDENDUM ADDENDUM #1 ADDENDUM: Right breast mass 1:00 ultrasound-guided core needle biopsy: Scan benign breast tissue with fibroadenomatous changes. Benign and concordant. Recommend return to annual screening. OVERALL ASSESSMENT: BI-RADS 1 - Negative RECOMMENDATION: 1 year F/U Electronically signed by: Reina Rod DO 06/25/2024 11:13 AM EST RP Addendum Dictated By: Riena Rod DO Addendum Signed By: <Electronically signed [...] 06/23/24 1030 DD/ 0900 TD/TT: 06/23/24 0945 Mattress Filler: [facility] External Provider IMG US PROCEDURES Edited Result - Final * BI Mammogram Diagnostic Tomosynthesis Right (06/23/2024 9:00 AM EST) Anatomical Region Laterality Modality Breast Right Mammography 06/23/2024 9:00 AM EST Narrative 06/23/2024 10:34 AM EST ? [facility] [place] ? [address] ?[place] [address] ? Mammography Report ? Signed with Addenda ? Patient: Wendie Faye ?MR ?? #: [id number] ? : 1950 ?Acct:[id number] ? Age/Sex: 73 / F ?ADM Date: 06/23/ ? Loc: HO.MAMMO ? Attending Dr: Tim Cifuentes MD ? Ordering Physician: Tim Cifuentes MD ?Results: ? Date of Service: 06/23/ ?Follow Up: ? Procedure(s): MM tomosynthesis diagnostic RT ?? Accession Number(s): [id number] ? cc: Tim Cifuentes MD; Martín Pittman [...] ? DD/ 0900 ? TD/TT: 06/23/249[address] ? Mattress Filler: ? Procedure Note Donteresitater, Image - 07/02/2024 [facility] [address] [place], [place] [address] Mammography Report Signed with Addenda Patient: Wendie Faye MMR #: [id number] : 1950cct:[id number] Age/Sex: 73 / FADM Date: 06/23/24 Loc: HO.MAMMO Attending Dr: Tim Cifuentes MD Ordering Physician: Tim Cifuentesesults: Date of Service: 06/23/24Follow Up: Procedure(s): MM tomosynthesis diagnostic RT Accession Number(s): [id number] cc: Tim Cifuentes MD; Name,Martín MARKS ADDENDUM [...] 06/23/24 1030 DD/ 0900 TD/TT: 06/23/24 0945 Mattress Filler: [facility] External Provider IMG BI PROCEDURES Edited Result - Final documented in this encounter Visit Diagnoses Not on filedocumented in this encounter Additional Health Concerns Assessment Noted Time PHQ-9 Depression Total Score: 22 04/06/ 024 11:54 AM EST documented as of this encounter Care Teams Caseworker Protective Services Relationship Specialty Start Date End Date Name, MD Martín [address] [place] [address] PCP - General Family Medicine 07/18/15 documented as of this encounter
--- OUTSIDE RECORDS SUMMARY | 2024-07-21 17:44 | XMS_ITS | Encounter Summary ---
Author Organization [employer] Address [address] [facility] 7t [place] [address] Care Team Providers Care Knitting Supervisor Name Role Phone Name, Martín MARKS Primary Care Provider [phone] Reason for Visit * Reason Comments Follow-up Encounter Details Date Type Department Care Team (Latest Contact Info) Description 07/19/2024 4:00 PM EST Office Visit [facility] MEDICINE [address] [place], [place] [phone] Name, MD Martín [address] [place] [address] Diverticulitis (Primary Dx); Flu vaccine refused; Primary osteoarthritis of right knee Social History Tobacco Use Types Packs/Day Years [...] AM EDT documented as of this encounter Last Filed Vital Signs Vital Sign Reading [...] 12.8 oz) 07/19/2024 3:50 PM EST Height - - Body Mass Index 29.45 05/10/2024 1:10 PM EST documented in this encounter Progress Notes * Martín Pittman, - 07/19/2024 4:00 PM EST Subjective Patient ID: Wendie Abdalla is a 73 y.o. female who presents for Follow-up. Patient comes for a follow-up visit. Since her last appointment she had another episode of diverticulitis while visiting family in [place]. I have the ER note and CT scan. She is currently on Augmentin. She describes resolution of abdominal pain on the Augmentin. She is up-to-date with her colonoscopy that was negative for malignancy last year. She has an appointment this to meet with Dr. Cifuentes that has recommended sigmoidectomy because of recurrent diverticulitis already but surgery was postponed due to the patient's travels. Review of Systems Constitutional: Negative for chills and fever. HENT: Negative for sore throat. Respiratory: Negative for cough, shortness of breath and wheezing. Cardiovascular: Negative for chest pain, palpitations and leg swelling. Gastrointestinal: Negative for abdominal pain. Musculoskeletal: She is having right knee pain. This is a recurrent problem for her secondary to DJD. She follows with [facility] orthopedics. She had cortisone injection for the right knee last week. Visit Vitals BP 137/86 Pulse 87 Temp 97.1 ??F (36.2 ??C) (Temporal) Resp 18 Wt 145 lb 12.8 oz (66.1 kg) SpO2 97% BMI 29.45 kg/m?? OB Status Postmenopausal Smoking Status Never BSA 1.66 m?? Objective Physical Exam Constitutional: Appearance: Normal appearance. Cardiovascular: Rate and Rhythm: Normal rate and regular rhythm. Heart sounds: No murmur heard. No gallop. Pulmonary: Effort: Pulmonary effort is normal. No respiratory distress. Breath sounds: Normal breath sounds. No wheezing. Abdominal: Tenderness: There is no abdominal tenderness. Musculoskeletal: General: No swelling. Right lower leg: No edema. Left lower leg: No edema. Neurological: Mental Status: She is alert. CBC W/AUTO DIFF, REFLEX MANUAL DIFF IF INDICATED - Abnormal Result Value WBC 15.78 (*) RBC 4.25 Hemoglobin 11.9 Hematocrit 35.2 MCV 82.8 MCH 28.0 MCHC 33.8 RDW 14.0 Platelet Count 312 MPV 8.7 (*) Neutrophils % 79.1 (*) Lymphocytes % 11.4 (*) Monocytes % 8.5 Eosinophils % 0.2 Basophils % 0.2 Neutrophils Absolute 12.49 (*) Lymphocytes Absolute 1.80 Monocytes Absolute 1.34 (*) Eosinophils Absolute 0.03 Basophil Absolute 0.03 COMPREHENSIVE METABOLIC PANEL - Abnormal Sodium 135 Potassium 3.8 Chloride 100 Carbon Dioxide 22.0 (*) Anion Gap 13 BUN 16.0 Creatinine 0.92 Glucose 193 (*) Calcium 9.1 AST 10 ALT 9 Alkaline Phosphatase 74 Protein, Total 7.9 Albumin 4.10 Globulin 3.8 A/G Ratio 1.1 Bilirubin, Total 1.10 eGFR 66.7 LIPASE - Abnormal Lipase 79 (*) URINALYSIS WITH REFLEX MICROSCOPIC AND REFLEX CULTURE - Abnormal Color, Urine Yellow Clarity, Urine Clear Leukocyte Esterase, Urine 3+ (*) Nitrite, Urine Negative Urobilinogen, Urine Normal Protein, Qual, Urine Negative pH, Urine 6.0 Blood, Urine Negative Specific Nunn, Urine 1.006 Ketones, Urine Negative Bilirubin, Urine Negative Glucose, Qual, Urine Negative Urinalysis Comment BKR MICROSCOPIC, URINE (NUM) - Abnormal RBC, Urine <=4 WBC, Urine 7 (*) Squamous Epithelial Cells, Urine 1 Trans Epithelial Cells, Urine <1 Bacteria, Urine Occasional (*) Radiology: CT Abdomen Pelvis W IV Contrast Final Result EXAM: CT ABDOMEN AND PELVIS WITH IV CONTRAST INDICATION: Abdominal pain COMPARISON: None TECHNIQUE: Contiguous axial images were obtained from the lung bases to the pelvic floor following the intravenous administration of 80 mL of Isovue 370. Coronal and sagittal reformations are provided. Up-to-date CT equipment and radiation dose reduction techniques were employed. FINDINGS: LOWER CHEST: Lung bases are clear. Coronary artery calcifications. Mild mitral annulus calcifications. LIVER: A few small hepatic cysts the largest in segment 6 measuring 15 mm. No intrahepatic biliary dilatation. Portal veins are patent. GALLBLADDER: No wall thickening. No radiopaque stones. COMMON BILE DUCT: Normal caliber. No radiopaque stones. SPLEEN: Within normal limits. PANCREAS: No mass. No main duct dilatation. No pancreatic fluid collections. ADRENALS: No masses. KIDNEYS: Tiny simple cysts in the upper left kidney. Mild fullness of both collecting systems.. LYMPH NODES: No adenopathy. STOMACH, SMALL BOWEL AND COLON: The mid sigmoid is thickened and inflamed. Several diverticula are present in this region. Trace areas of fluid also surrounding the sigmoid without well-formed collection. No obstruction. APPENDIX: Normal. PERITONEAL CAVITY: No abscess. No free air. ABDOMINAL AORTA: No aneurysm. PELVIC ORGANS: Hysterectomy. Reactive thickening of the dome of the bladder near the diverticulitis. No air in the bladder to suggest a fistula. SOFT TISSUE: Normal. OSSEOUS STRUCTURES: No acute fracture or destructive lesion. IMPRESSION: Acute diverticulitis in the mid sigmoid. No free air or abscess. Created by: Lucas Garcia MD Signed by: Lucas Garcia MD Signed on: 07/12/2024 13:11 EST Location: [place] [address] Assessment/Plan Diagnoses and all orders for this visit: Diverticulitis Comments: She is encouraged to continue using Augmentin as prescribed and keep her upcoming appointment with surgeon. Flu vaccine refused Primary osteoarthritis of right knee Comments: I recommended to use acetaminophen 3 times a day as needed. Keep follow-up with [facility] orthopedics documented in this encounter Plan of Treatment Upcoming Encounters Date Type Department Care Team (Late st Contact Info) Description 09/02/2024 2:00 PM EDT Office Visit [facility] ADULT DENTAL [address] [place] [address] Erica, Kasia [address] [place] [address] 11/03/2024 3:45 PM EDT Office Visit [facility] MEDICINE [address] [place] [address] Name, MD Martín [address] [place] [address] documented as of this encounter Visit Diagnoses Diagnosis Diverticulitis- Primary Diverticulitis of colon (without mention of hemorrhage) Flu vaccine refused Primary osteoarthritis of right knee documented in this encounter Additional Health Concerns Assessment Noted Time PHQ-9 Depression Total Score: 22 024 11:54 AM EST documented as of this encounter Care Teams Knitting Supervisor Relationship Specialty Start Date End Date Name, MD Martín [address] [place] [address] PCP - General Family Medicine 07/18/15 documented as of this encounter
--- OUTSIDE RECORDS SUMMARY | 2024-07-21 17:44 | XMS_ITS | Encounter Summary ---
Author Organization [employer] Address [address] [facility] 7t [place] [address] Care Team Providers Care Underwriting Operations Manager Name Role Phone Name, Martín MARKS Primary Care Provider [phone] Encounter Details Date Type Department Care Team (Late st Contact Info) Description 10/28/2022 Abstract [facility] MEDICINE [address] [place] [address] Martín Pittman MD [address] [place] [address] Social History Tobacco Use Types Packs/Day Years [...] Description 09/02/2024 2:00 PM EDT Office Visit [facility] ADULT DENTAL [address] [place] [phone] Erica, Kasia [address] [place] [address] 11/03/2024 3:45 PM EDT Office Visit [facility] MEDICINE [address] [place] [address] Martín Pittman MD [address] [place] [address] documented as of this encounter Visit Diagnoses Not on filedocumented in this encounter Care Teams Underwriting Operations Manager Relationship Specialty Start Date End Date Name, MD Martín [address] [place] [address] PCP - General Family Medicine 07/18/15 documented as of this encounter
--- OUTSIDE RECORDS SUMMARY | 2024-07-21 17:44 | XMS_ITS | Encounter Summary ---
Author Organization [employer] Address [address] [facility] 7t [place] [address] Care Team Providers Care Tableman Name Role Phone Name, Martín MARKS Primary Care Provider [phone] Reason for Visit * Reason Comments Med Refill Encounter Details Date Type Department Care Team ([facility] st Contact Info) Description 04/09/2023 Refill [facility] [address] [place], [place] [phone] Name, MD Martín [address] [place] [address] Social History Tobacco Use Types Packs/Day Years [...] Office Visit [facility] ADULT DENTAL [address] [place] [address] Erica, Kasia [address] [place] [address] 11/03/2024 3:45 PM EDT Office Visit [facility] [address] [place] [address] Name, MD Martín [address] [place] [address] documented as of this encounter Visit Diagnoses Not on filedocumented in this encounter Care Teams Tableman Relationship Specialty Start Date End Date Name, MD Martín [address] [place] [address] PCP - General Family Medicine 07/18/15 documented as of this encounter
--- OUTSIDE RECORDS SUMMARY | 2024-07-21 17:44 | XMS_ITS | Encounter Summary ---
Author Organization [employer] Address [address] [facility] 7t [place] [address] Care Team Providers Care Plate Shear Operator Name Role Phone Name, Martín MARKS Primary Care Provider [phone] Reason for Visit * Reason Comments Med Refill Encounter Details Date Type Department Care Team ([facility] st Contact Info) Description 01/21/2024 Refill [facility] MEDICINE [address] [place], [place] [phone] Name, MD Martín [address] [place] [address] Insomnia, unspecified type Social History Tobacco Use [...] Visit [facility] ADULT DENTAL [address] [place] [address] Erica, Kasia [address] [place] [address] 11/03/2024 3:45 PM EDT Office Visit [facility] MEDICINE [address] [place] [address] NameMartín MD [address] [place] [address] documented as of this encounter Visit Diagnoses Diagnosis Insomnia, unspecified type documented in this encounter Additional Health Concerns Assessment Noted Time PHQ-9 Depression Total Score: 10 024 1:21 PM EDT documented as of this encounter Care Teams Plate Shear Operator Relationship Specialty Start Date End Date NameMartín MD [address] [place] [address] PCP - General Family Medicine 07/18/15 documented as of this encounter
--- OUTSIDE RECORDS SUMMARY | 2024-07-21 17:44 | XMS_ITS | Encounter Summary ---
Author Organization [employer] Address [address] [facility] 7t [place] [address] Care Team Providers Care Software Publisher Name Role Phone Name, Martín MARKS Primary Care Provider [phone] Reason for Visit * Reason Onset Date Comments ER Follow-up 07/14/2024 Encounter Details Date Type Department Care Team ([facility] st Contact Info) Description 07/14/2024 Telephone [facility] MEDICINE [address] [place], [place] [phone] Name, MD Martín [address] [place] [address] ER Follow-up Social History Tobacco Use Types [...] RN - 07/14/2024 8:21 AM EST No dishwasher needed as this promotion writer speaks Divehi. Per notes pt seen for acute diverticulitis. Seen at outside ER in [facility] returned to Wendie Abdalla to triage below. Reports having appt with General surgeon on 07/23/24. Per pt was calling due to not being able to obtain Rx for medications at [place] due to flying back home that same [...] ED visit on : Date: 07/12/24 Hospital: [facility] Emergency. Seen for: Abdominal Pain Symptomatic [...] 2:00 PM EDT Office Visit [facility] ADULT DENTAL [address] [place] [address] [address] [place] [address] 11/03/2024 3:45 PM EDT Office Visit [facility] MEDICINE [address] [place] [address] Name, MD Martín [address] [place] [address] documented as of this encounter Visit Diagnoses Not on filedocumented in this encounter Additional Health Concerns Assessment Noted Time PHQ-9 Depression Total Score: 22 024 11:54 AM EST documented as of this encounter Care Teams Software Publisher Relationship Specialty Start Date End Date NameMartín MD [address] [place] [place] [address] PCP - General Family Medicine 07/18/15 documented as of this encounter
--- OUTSIDE RECORDS SUMMARY | 2024-07-21 17:44 | XMS_ITS | Encounter Summary ---
Author Organization [employer] Address [address] [facility] 7t [place] [address] Care Team Providers Care Liquified Natural Gas Specialist Name Role Phone Name, Martín MARKS Primary Care Provider [phone] Reason for Visit * Reason Onset Date Comments Call Back Request 07/11/2023 Encounter Details Date Type Department Care Team ([facility] st Contact Info) Description 07/11/2023 Telephone [facility] MEDICINE [address] [place], [place] [phone] Name, MD Martín [address] [place] [address] Call Back Request Social History Tobacco Use [...] T/C to pt. [place] below [place] - [id number], pt. States she has already apt. For CT scan, pt. Is all set right now. Advised to give call to [facility] if any question or concerns. * Telephone Encounter - Sharon Langford - 07/11/2023 11:45 AM EST Tc from pt requesting order for ct scan on left hand stated talk with PCP about this please contactpt for clarifications. documented in this encounter Plan of Treatment Upcoming Encounters Date Type Department Care Team ([facility] st Contact Info) Description 09/02/2024 2:00 PM EDT Office Visit [facility] ADULT DENTAL [address] [place] [address] Erica Kasia [address] [place] [address] 11/03/2024 3:45 PM EDT Office Visit [facility] MEDICINE [address] [place] [address] NameMartín MD [address] [place] [address] documented as of this encounter Visit Diagnoses Not on filedocumented in this encounter Care Teams Liquified Natural Gas Specialist Relationship Specialty Start Date End Date NameMartín MD [address] [place] [address] PCP - General Family Medicine 07/18/15 documented as of this encounter
== END 2024-07-21 15:03 | disposition home or self-care (01) ==
PROVIDERS: PCP Internal Medicine Geriatric Medicine; Visit Provider Surgery
DX: K57.90 Diverticulosis of intestine, part unspecified, without perforation or abscess without bleeding (principal); N63.10 Unspecified lump in the right breast, unspecified quadrant
CPT/HCPCS: 99214

== ENCOUNTER → 2024-07-21 14:41 | Outpatient (BNVA) | payer OTHER, SELFPAY | PROVIDERS: PCP Internal Medicine Geriatric Medicine; Visit Provider Surgery | DX: K57.90 Diverticulosis of intestine, part unspecified, without perforation or abscess without bleeding (principal); N63.10 Unspecified lump in the right breast, unspecified quadrant | CPT/HCPCS: 99212 ==

== ENCOUNTER → 2024-08-09 10:49 | Outpatient (BNV) | payer OTHER, SELFPAY | PROVIDERS: Admitting Provider Surgery; PCP Internal Medicine Geriatric Medicine; Visit Provider Internal Medicine Cardiovascular Disease | DX: R00.1 Bradycardia, unspecified (principal) | CPT/HCPCS: 93010 ==

== ENCOUNTER 2024-08-17 07:47 | Inpatient (IN) | payer OTHER, SELFPAY ==
[2024-08-09 09:57] VITALS: BP 137/79; PULSE 71; RESP 16; O2SAT 97; BMI 29.5
--- NOTE | 2024-08-09 10:49 | ECG_ITS ---
Test Reason : PRE OP Blood Pressure : */* mmHG Vent. Rate : 56 BPM Atrial Rate : 56 BPM P-R Int : 120 ms QRS Dur : 70 ms QT Int : 430 ms P-R-T Axes : 38 2 22 degrees QTcB Int : 414 ms Sinus bradycardia Otherwise normal ECG When compared with ECG of 13-Jun-2023 21:08, Vent. rate has decreased by 27 bpm Referred By: Carmella Paulson Electronically Signed By: OSCAR LANDIN MD
[2024-08-09 11:35] LABS: MANUAL DIFF FLAG NO
[2024-08-09 11:52] LABS: Basophils Percent Auto 0.5 % (0-2); Eosinophils Absolute Auto 0.2 X10*3/uL (0.0-0.4); Eosinophils Percent Auto 2.1 % (0-4); Hematocrit 36.1 % (37.0-47.0); Hemoglobin 11.8 g/dl (12.0-16.0); Imm Gran Abs Auto 0.02 X10*3/uL (0.00-0.03); Imm Gran Pct Auto 0.3 % (0.0-0.4); Lymphocytes Percent Auto 26.5 % (20-40); Mean Corpuscular HGB Conc 32.7 g/dl (31.0-35.0); Mean Corpuscular Hemoglobin 28.1 pg (27.0-33.0); Mean Platelet Volume 8.5 fL (9.4-12.3); Monocytes Absolute Auto 0.6 X10*3/uL (0.1-1.2); Monocytes Percent Auto 7.9 % (2-11); Neutrophils Absolute Auto 4.7 x10*3/uL (2.0-8.3); Neutrophils Percent Auto 62.7 % (45-73); Platelet Count 261 X10*3/uL (160-400); Red Cell Distribution Width 14.1 % (11.0-16.0); White Blood Count 7.5 X10*3/uL (4.8-10.8)
[2024-08-09 12:39] LABS: Anion Gap 10 (12-20); Blood Urea Nitrogen 17 mg/dL (9-16); Calcium 9.3 mg/dL (8.4-10.2); Carbon Dioxide 27 mmol/L (22-29); Chloride 107 mmol/L (96-108); Creatinine Clr Calc Pharmacy 56.9; Estimated Glomerular Filt Rate > 60; Glucose Random 101 mg/dL (60-115); Potassium 4.2 mmol/L (3.3-5.1); Sodium 140 mmol/L (135-145)
--- NOTE | 2024-08-16 10:35 | HO.ANESPROP2 ---
Documented by User: Saima Robertson NP 08/16/24 10:36 HPI - Anesthesia Eval Consult details Narrative: 73yo F for Hand Assist Laparoscopic Sigmoid Resection,possible Open,possible Stoma PAT 08/09/[address] Khurram TRAN Active Problems Active Problems: All Active Problems Osteoarthritis of right hip (Acute) Hiatal hernia with gastroesophageal reflux disease and esophagitis (Acute) Encounter for hepatitis C screening test for low risk patient (Acute) CMC arthritis, thumb, degenerative (Acute) Osteoarthritis of left shoulder (Acute) Duodenitis (Acute) Acid reflux (Acute) Ascending aorta dilatation (Acute) Tendinitis of left rotator cuff (Acute) Osteoarthritis of left knee (Acute) Osteoarthritis of right knee (Acute) Breast mass, right (Acute) Diverticular disease (Acute) Left hand pain (Acute) Hypertension (Acute) Past Medical History Medical History Fatty liver Snores Breast mass, right Diverticular disease Hospital discharge follow-up Acute diverticulitis Hypertension Syncope and collapse Tendonitis Arthritis Right knee pain Left hand pain Family History Family History Mother Alzheimer disease Hypertension Dementia Father Hypertension Family history of problems with anesthesia: No Surgical History Surgical History Hx of right breast biopsy (06/23/24) Hx of hysterectomy Hx of hemorrhoidectomy Hx of colonoscopy History of hand surgery Status post hardware removal History of Problems with Anesthesia: No Social History Social History Household Members: None Housing: House Are you a primary intensive care unit nurse to a significant other at home: No Do you presently have visiting nurse or other home services: Yes ([employer] 9 hours per week-[place]) Alcohol intake: never Comment: pt refused bed alarm Patient Tobacco Use Status: Never used Tobacco e-Cigarette/Vaping Use: Never Used Use of substances other than those prescribed or required for medical reasons: No Have you been hit, kicked, punched, or otherwise hurt by someone within the past year? If so, by whom?: No Are you DNR?: No Advance Directives: No (will bring dos) Advance Directives Information Provided: No Advance Directives on File: No Recently lost weight without trying: No Nutrition Risks: No Nutritional Risk Poor oral hygiene: No service: No Current occupational status: retired Current occupation: rt handed Meds Allergies Allergy/AdvReac Type Severity Reaction Status Date / Time No Known Allergies Allergy Verified 07/21/24 14:58 Home Medications ?Medication ?Instructions ?Recorded ?Confirmed ?Last Taken ?Type loratadine 10 mg tablet 10 mg PO DAILY PRN Allergy Symptoms 03/26/24 08/09/24 08/16/24 History clonazepam 1 mg tablet 0.5 mg PO BEDTIME 08/09/24 08/09/24 08/16/24 History pantoprazole 20 mg tablet,delayed 20 mg PO DAILY@0630 08/17/24 08/17/24 08/16/24 History release Exam Height,Weight and Vital Signs: Height 4 ft 11 in Weight 66.224 kg Last Vital Signs Pulse 71 08/09/24 09:57 Resp 16 08/09/24 09:57 BP 137/79 08/09/24 09:57 Pulse Ox 97 08/09/24 09:57 O2 Del Method Room Air 08/09/24 09:57 Pertinent Lab Results Pertinent Lab Results: Laboratory Tests 08/09/24 08/09/24 11:34 11:35 WBC 7.5 RBC 4.20 Hgb 11.8 L Hct 36.1 L MCV 86.0 MCH 28.1 MCHC 32.7 RDW 14.1 Plt Count 261 MPV 8.5 L Immature Gran % (Auto) 0.3 Neut % (Auto) 62.7 Lymph % (Auto) 26.5 Peach % (Auto) 7.9 Eos % (Auto) 2.1 Baso % (Auto) 0.5 Lymph # (Auto) 2.0 Peach # (Auto) 0.6 Eos # (Auto) 0.2 Baso # (Auto) 0.0 Abs Immat Gran (auto) 0.02 Absolute Neuts (auto) 4.7 Absolute Nucleated RBC 0.000 Nucleated RBC % (auto) 0.0 Sodium 140 Potassium 4.2 Chloride 107 Carbon Dioxide 27 Anion Gap 10 L BUN 17 H Creatinine 0.75 Estim Creat Clear Calc 56.9 Estimated GFR > 60 Random Glucose 101 Calcium 9.3 Blood Type O Negative Antibody Screen NEGATIVE Narrative Narrative: EKG 07/2024 Vent. Rate : 56 BPM Atrial Rate : 56 BPM P-R Int : 120 ms QRS Dur : 70 ms QT Int : 430 ms P-R-T Axes : 38 2 22 degrees QTcB Int : 414 ms Sinus bradycardia Otherwise normal ECG When compared with ECG of 13-Jun-2023 21:08, Vent. rate has decreased by 27 bpm ECHO 02/2024 Conclusions: - Normal left ventricular size and systolic function. There is mildly increased left ventricular wall thickness. The visually estimated ejection fraction is between 60-65%. - Normal right ventricular cavity size and systolic function. - There is mild dilatation of the ascending aorta measuring 4.00 cm. Assessment and Plan Assessment Anesthesia Assessment: Chart Reviewed Final Anesthetic Review Family History of Problems with Anesthesia: No History of Problems with Anesthesia: No Documented by User: Carmella Paulson MD 08/17/24 09:46 PMFSH Past Medical History Medical History Fatty liver Snores Breast mass, right Diverticular disease Hospital discharge follow-up Acute diverticulitis Hypertension Syncope and collapse Tendonitis Arthritis Right knee pain Left hand pain Family History Family History Mother Alzheimer disease Hypertension Dementia Father Hypertension Surgical History Surgical History Hx of right breast biopsy (06/23/24) Hx of hysterectomy Hx of hemorrhoidectomy Hx of colonoscopy History of hand surgery Status post hardware removal Social History Social History Household Members: None Housing: House Are you a primary intensive care unit nurse to a significant other at home: No Do you presently have visiting nurse or other home services: Yes ([employer] 9 hours per week-[employer]) Alcohol intake: never Comment: pt refused bed alarm Patient Tobacco Use Status: Never used Tobacco e-Cigarette/Vaping Use: Never Used Use of substances other than those prescribed or required for medical reasons: No Have you been hit, kicked, punched, or otherwise hurt by someone within the past year? If so, by whom?: No Are you DNR?: No Advance Directives: No (will bring dos) Advance Directives Information Provided: No Advance Directives on File: No Recently lost weight without trying: No Nutrition Risks: No Nutritional Risk Poor oral hygiene: No service: No Current occupational status: retired Current occupation: rt handed Meds Allergies Allergy/AdvReac Type Severity Reaction Status Date / Time No Known Allergies Allergy Verified 07/21/24 14:58 Home Medications ?Medication ?Instructions ?Recorded ?Confirmed ?Last Taken ?Type loratadine 10 mg tablet 10 mg PO DAILY PRN Allergy Symptoms 03/26/24 08/09/24 08/16/24 History clonazepam 1 mg tablet 0.5 mg PO BEDTIME 08/09/24 08/09/24 08/16/24 History pantoprazole 20 mg tablet,delayed 20 mg PO DAILY@0630 08/17/24 08/17/24 08/16/24 History release Exam Airway Mallampati Class: II TM Dist: >3cm Neck ROM: Limited Heart: rrr Lungs: cta Assessment and Plan Assessment Anesthesia Assessment: Anesthesia Plan Discussed Final Anesthetic Review NPO: Yes ASA Class: III Final Preanesthetic Review: No Changes in Pt Med Stat, Meds/Allgs Chart Reviewed, Consent Obtained/Reviewed and Anes Risks/Benef Reviewed Patient Risk: Intermediate Procedure Risk: Intermediate Anesthetic Plan Anesthetic Plan: GA, Regional Block and Agree w/ Assess. and Plan Disposition: Standard PACU
[2024-08-17] VITALS (28 sets, daily range): BP systolic 65–142; BP diastolic 27–77; PULSE 69–102; RESP 14–20; TEMP 35.4–37.1; O2SAT 95–99
--- OUTSIDE RECORDS SUMMARY | 2024-08-17 07:50 | XMS_ITS | Encounter Summary ---
Author Organization [email or web address] [facility] Address [address] [facility] 7t [place] [address] Care Team Providers Care Online Media Director Name Role Phone Name, Martín MARKS Primary Care Provider [phone] Encounter Details Date Type Department Care Team (Latest Contact Info) Description 11/01/2021 Abstract [facility] CONVERSIONS Dental, Provider, DDS Social [...] Description 09/02/2024 2:00 PM EDT Office Visit [facility] ADULT DENTAL [address] [place] [phone] Erica Kasia [address] [place] [address] 11/03/2024 3:45 PM EDT Office Visit [facility] MEDICINE [address] [place] [address] Name, MD Martín [address] [place] [address] documented as of this encounter Visit Diagnoses Not on filedocumented in this encounter Care Teams Online Media Director Relationship Specialty Start Date End Date NameMartín MD [address] [place] [address] PCP - General Family Medicine 07/18/15 documented as of this encounter
--- OUTSIDE RECORDS SUMMARY | 2024-08-17 07:50 | XMS_ITS | Encounter Summary ---
Author Organization [facility] [facility] Address [address] [facility] 7t [place] [address] Care Team Providers Care Atomic Fuel Assembler Name Role Phone Name, Martín MARKS Primary Care Provider [phone] Encounter Details Date Type Department Care Team (Latest Contact Info) Description 07/26/2019 Abstract [facility] CONVERSIONS Dental, Provider, DDS Social History [...] PM EDT Office Visit [facility] ADULT DENTAL [address] [place] [phone] Erica Kasia [address] [place] [address] 11/03/2024 3:45 PM EDT Office Visit [facility] MEDICINE [address] [place] [address] NameMartín MD [address] [place] [address] documented as of this encounter Visit Diagnoses Not on filedocumented in this encounter Care Teams Atomic Fuel Assembler Relationship Specialty Start Date End Date Martín Pittman MD [address] [place] [address] PCP - General Family Medicine 07/18/15 documented as of this encounter
--- OUTSIDE RECORDS SUMMARY | 2024-08-17 07:50 | XMS_ITS | Encounter Summary ---
Author Organization [employer] [facility] Address [address] [facility] 7t [place] [address] Care Team Providers Care Auditor Internal Name Role Phone Name, Martín MARKS Primary Care Provider [phone] Encounter Details Date Type Department Care Team (Latest Contact Info) Description 11/06/2020 Abstract [facility] CONVERSIONS Dental, Provider, DDS Social [...] Description 09/02/2024 2:00 PM EDT Office Visit [facility] ADULT DENTAL [address] [place] [phone] Erica Kasia [address] [place] [address] 11/03/2024 3:45 PM EDT Office Visit [facility] MEDICINE [address] [place] [address] Name, MD Martín [address] [place] [address] documented as of this encounter Visit Diagnoses Not on filedocumented in this encounter Care Teams Auditor Internal Relationship Specialty Start Date End Date NameMartín MD [address] [place] [address] PCP - General Family Medicine 07/18/15 documented as of this encounter
--- OUTSIDE RECORDS SUMMARY | 2024-08-17 07:50 | XMS_ITS | Clinical Summary ---
Author Organization [employer] Address [address] [facility] 7t [place] [address] Care Team Providers Care Nurse Special Name Role Phone Name, Martín MARKS Primary Care Provider [phone] Allergies No known active allergies Medications atorvastatin [...] discharge follow-up 03/02/2024 Overview (03/02/2024): [place] [facility] [place] to x 1 day-biotics discharge p.o. antibiotics [...] Type Department Care Team Description 07/20/2024 Telephone [facility] MEDICINE [address] [place] [phone] Martín Pittman MD Durable Medical Equipment 07/19/2024 4:00 PM EST Office Visit [address] [address] Martín Pittman MD Diverticulitis (Primary Dx); Flu vaccine refused; Primary osteoarthritis of right knee 07/19/2024 Refill [facility] [address] [place] [phone] Martín Pittman MD Insomnia, unspecified type 07/15/2024 Telephone [facility] [address] [place], [place] [phone] Martín Pittman MD chartprep 07/14/2024 Telephone [facility] MEDICINE [address] [place] [address] Martín Pittman MD ER Follow-up 06/23/2024 Orders Only [facility] External Provider, [facility] 06/21/2024 Refill [facility]INE [address] [place] [address] Martín Pittman MD Insomnia, unspecified type 05/25/2024 Telephone [facility]INE [address] [place] [address] [phone] Lupe Cosme FLOR 05/20/2024 Refill [facility] [address] [place] [address] Name, MD Martín Insomnia, unspecified type from [...] t he electric, gas, oil or water Activehours threatened to shut off services in your [...] Description 09/02/2024 2:00 PM EDT Office Visit [facility] ADULT DENTAL [address] [place] [address] Erica, Kasia [address] [place] [address] 11/03/2024 3:45 PM EDT Office Visit [facility] MEDICINE [address] [place] [phone] Name, MD Martín [address] [place] [address] Health Maintenance Due Date Last Done Comments [...] Colorectal Cancer Screening 08/11/2028 Hepatitis A Vaccines Aged Out 06/16/2023, 12/17/19 23 No longer eligible based on patient's age to complete this topic Hepatitis B Vaccines Completed 06/16/2023, 01/13/2023, 12/16/2022 [...] Procedure Name Priority Date/Time Associated Diagnosis Comments AMB REFERRAL TO SLEEP MEDICINE Routine 08/09/2024 Hypersomnia Snoring HEMATOXYLIN AND EOSIN STAIN Routine 06/23/2024 9:33 AM EST US BREAST NDL CORE BIOPSY RT Routine 06/23/2024 9:00 AM EST BI MAMMOGRAM DIAGNOSTIC TOMOSYNTHESIS RIGHT Routine 06/23/2024 9:00 AM EST BI US BREAST LIMITED RIGHT Routine 05/25/2024 9:45 AM EST BI MAMMOGRAM DIAGNOSTIC TOMOSYNTHESIS ADDED VIEW RIGHT Routine 05/25/2024 9:05 AM EST HEPATITIS C ANTIBODY Routine 05/10/2024 1:37 PM EST PROPHYLAXIS - ADULT Routine 01/01/2024 [...] Recently Relevant to Health Maintenance Results * Referral to Sleep Medicine (08/09/2024) us Martín Pittman MD OUTPATIENT REFERRAL ORDERABLES F inal Result * Hematoxylin and Eosin Stain (06/23/2024 9:33 AM EST) 06/23/2024 9:33 AM EST 06/23/2024 12:00 PM EST [facility] - 06/24/2024 12:21 PM EST ----- ------- Name: Wendie Fyae ?Age/Sex: 73/F ? : 1950 Unit#: [id number] ?? Attend Dr: Tim Cifuentes MD ?Re06/23/24 ?Status: DEP REF ? Location: HO.MAMMO ?Disch: ? ----- ------- SPEC : [id number] ?RECD: 06/23/24-1200 ? STATUS: ??SOUT ? REQ NUM: [id number] ? MADHAV: 06/23/24 ? SUBM DR: Reina [...] Copies To: ?? Tim Cifuentes MD ?? [facility] [place] [facility] ?? [address] ?? [place] [address] ?? [phone] ?? Name,Martín MARKS ?? [address] ?? [place] [address] ?? [phone] ? CONTINUED ON NEXT PAGE ----- ------- Name: Wendie Faye ?Age/Sex: 73/F ? : 1950 Unit#: [id number] ?? Attend Dr: Tim Cifuentes MD ?Re06/23/24 ?Status: DEP REF ? Location: HO.MAMMO ?Disch: ? ----- ------- SPEC : [id number] ?RECD: 06/23/24-1200 ? STATUS: ??SOUT ? REQ NUM: [id number] ? MADHAV: 06/23/24-66 ? SUBM DR: Reina Rod DO ? ENTERED: ??06/23/24-1206 ?SP TYPE: Surgical ? OTHR DR: Tim Cifuentes MD ?Name,Martín MARKS ORDERED: ??HE Stain/2, Gross Micro L4 ? COMMENTS: As per the specimen requisition slip the specimen is ?collected at 0933 and placed in formalin at 0940. Copies To: ??(Continued) ?? Reina Rod DO ?? [address] [facility] ?? [place] [address] ?? [phone] ----- ------- Signed (signature on file) Catia Marshall 06/24/24 1221 ? ----- ------- ? END OF REPORT ? us Generic External Data Provider LAB BLOOD ORDERAB LES Final Result [facility] [address] [facility] [place] [address] [phone] * US BREAST NDL CORE BIOPSY RT (06/23/2024 9:00 AM EST) Anatomical Region Laterality Modality Abdomen Ultrasound 06/23/2024 9:00 AM EST Narrative 06/23/2024 10:34 AM EST ? [facility] [place] ? [address] ?[place] [address] ? Ultrasound Report ? Signed with Addenda ? Patient: Raimundo Abdalla,Eduarda ?MR ?? #: [id number] ? : 1950 ?Acct:[id number] ? Age/Sex: 73 / F ?ADM Date: 06/23/24 ? Loc: HO.MAMMO ? Attending Dr: Tim Cifuentes MD ? Ordering Physician: Tim Cifuentes MD ?? Date of Service: 06/23/24 ?? Procedure(s): US breast ndl core biopsy RT ?? Accession Number(s): [id number] ? cc: Tim Cifuentes MD; Martín Pittman [...] DD/ 0900 ? TD/TT: 06/23/24 0945 ? Management Nurse Rn: ? Procedure Note Courtney Daugherty - 06/25/2024 [facility] [address] [place], [place] [address] Ultrasound Report Signed with Addenda Patient: RaimundoWendie Durham MMR #: [id number] : 3Acct:[id number] Age/Sex: 73 / FADM Date: 06/23/24 Loc: HO.MAMMO Attending Dr: Tim Cifuentes MD Ordering Physician: Tim Cifuentes MD Date of Service: 06/23/24 Procedure(s): US breast ndl core biopsy RT Accession Number(s): [id number] cc: Tim Cifuentes MD; Name,Martín MARKS ADDENDUM [...] 06/23/24 1030 DD/ 0900 TD/TT: 06/23/24 0945 Management Nurse Rn: [facility] External Provider IMG US PROCEDURES Edited Result - Final * BI Mammogram Diagnostic Tomosynthesis Right (06/23/2024 9:00 AM EST) Anatomical Region Laterality Modality Breast Right Mammography 06/23/2024 9:00 AM EST Narrative 06/23/2024 10:34 AM EST ? [facility] ? [address] [facility] [address] ?[place] [address] ? Mammography Report ? Signed with Addenda ? Patient: Raimundo Abdalla,Eduarda ?MR ?? #: [id number] ? : 1950 ?Acct:[id number] ? Age/Sex: 73 / F ?ADM Date: 02/05/25 ? Loc: HO.MAMMO ? Attending Dr: Tim Cifuentes MD ? Ordering Physician: Tim Cifuentes MD ?Results: ? Date of Service: 06/23/24 ?Follow Up: ? Procedure(s): MM tomosynthesis diagnostic RT ?? Accession Number(s): [id number] ? cc: Tim Cifuentes MD; Martín Pittman [...] DD/ 0900 ? TD/TT: 06/23/24 0945 ? Management Nurse Rn: ? Procedure Note Willow, Image - 07/02/2024 [facility] [address] [place] [address] Mammography Report Signed with Addenda Patient: Wendie Faye MMR #: [id number] : 1950cct:[id number] Age/Sex: 73 / FADM Date: 06/23/24 Loc: RENÉ Attending Dr: Tim Cifuentes MD Ordering Physician: Tim Cifuentes MDResults: Date of Service: 06/23/24Follow Up: Procedure(s): MM tomosynthesis diagnostic RT Accession Number(s): [id number] cc: Tim Cifuentes MD; Name,Martín MARKS ADDENDUM [...] 06/23/24 1030 DD/ 0900 TD/TT: 06/23/24 0945 Management Nurse Rn: [facility] External Provider IMG BI PROCEDURES Edited Result - Final * BI US Breast Limited Right (05/25/2024 9:45 AM EST) Anatomical Region Laterality Modality Breast Right Ultrasound 05/25/2024 9:45 AM EST Narrative 05/25/2024 10:32 AM EST ? [facility] ? [address] ?[place] [address] ? Ultrasound Report ? Signed ? Patient: Raimundo Abdalla,Eduarda ?MR ?? #: [id number] ? : 1950 ?Acct:[id number] ? Age/Sex: 73 / F ?ADM Date: 05/25/24 ? Loc: HO.MAMMO ? Attending Dr: Martín Pittman MD ? Ordering Physician: Martín Pittman MD ?? Date of Service: 05/25/24 ?? Procedure(s): US breast RT limited mamm only ?? Accession Number(s): [id number] ? cc: Martín Pittman MD ? EXAMINATION: [...] 05/25/24 1030 ? DD/ 0945 ? TD/TT: 05/25/2457 ? Management Nurse Rn: ? Procedure Note Willow, Image - 05/25/2024 [facility] [address] [place] [address] Ultrasound Report Signed Patient: Wendie Faye MMR #: [id number] : 3Acct:[id number] Age/Sex: 73 / FADM Date: 05/25/24 Loc: HO.MAMMO Attending Dr: Martín Pittman MD Ordering Physician: Martín Pittman MD Date of Service: 05/25/24 Procedure(s): US breast RT limited mamm only Accession Number(s): [id number] cc: Martín Pittman MD EXAMINATION: MM DIAGNOSTIC [...] 05/25/24 1030 DD/ 0945 TD/TT: 05/25/24 0957 Management Nurse Rn: Martíndeisy DOMÍNGUEZ PROCEDURES Edited Result - Final * BI Mammogram Diagnostic Tomosynthesis added right (05/25/2024 9:05 AM EST) Anatomical Region Laterality Modality Breast Left Mammography 05/25/2024 9:05 AM EST Narrative 05/25/2024 10:33 AM EST ? [facility] ? [address] ?[place] [address] ? Mammography Report ? Signed ? Patient: Raimundo Abdalla,Eduarda ?MR ?? #: [id number] ? : 1950 ?Acct:[id number] ? Age/Sex: 73 / F ?ADM Date: 05/25/24 ? Loc: HO.MAMMO ? Attending Dr: Martín Pittman MD ? Ordering Physician: Martín Pittman MD ?Results: 4Suspiciou ?? s Finding ? Date of Service: 05/25/24 ?Follow Up: Biopsy Recommend ?? ed ? Procedure(s): MM tomosynthesis added views R ?? Accession Number(s): [id number] ? cc: Toya,Martín MARKS ? EXAMINATION: ?? MM DIAGNOSTIC DIGITAL [...] DD/ 0905 ? TD/TT: 05/25/24 0920 ? Management Nurse Rn: ? Procedure Note Willow, Image - 05/25/2024 [facility] [address] [place] [address] Mammography Report Signed Patient: Wendie Faye MMR #: [id number] : 3Acct:[id number] Age/Sex: 73 / FADM Date: 05/25/24 Loc: RENÉ Attending Dr: Martín Pittman MD Ordering Physician: Martín Pittmanults: 4Suspiciou s Finding Date of Service: 05/25/24Follow Up: Biopsy Recommend ed Procedure(s): MM tomosynthesis added views R Accession Number(s): [id number] cc: Martín Pittman MD EXAMINATION: MM DIAGNOSTIC [...] 05/25/24 1030 DD/ 0905 TD/TT: 05/25/24 0920 Management Nurse Rn: Martín Pittman MD [facility] PROCEDURES Edited Result - Final * Hepatitis C Ab (05/10/2024 1:37 PM EST) Hepatitis C Antibody Nonreactive Nonreactive [facility] Comment:Antibodies to HCV no t detected; does not exclude early acuteHCV infection. 05/10/2024 1:37 PM EST 05/10/2024 4:01 PM EST us Generic External Data Provider LAB BLOOD ORDERAB LES Final Result [facility] [address] [place] [address] [phone] * (ABNORMAL) Hm Colonoscopy (08/12/2023) Colonoscopy Abnormal(A ) Normal Martín Pittman MD HEALTH MAINTENANCE Final Result * (ABNORMAL) Lipid Panel, Standard (07/24/2022 9:07 AM EST) Cholesterol, Total 206(H) <200 mg/dL [facility] [place] [facility] HDL Cholesterol 40(L) > OR = 50 mg/dL [facility] [place] [facility] Triglycerides 252(H) <150 mg/dL [facility] [place] [facility] Comment: If a non-fasting specimen was collected, consider repeat triglyceride testing on a fasting specimen if clinically indicated. Arian et al. J. of Clin. Lipidol. 2015;9:129-169. LDL Cholesterol 127(H) mg/dL (calc) [facility] [place] [facility] Comment: Reference range: <100 Desirable range <100 mg/dL for primary prevention; ?? <70 mg/dL for patients with CHD or diabetic patients with > or = 2 CHD risk factors. LDL-C is now calculated using the James-Jagruti calculation, which is a validated novel method providing better accuracy than the Friedewald equation in the estimation of LDL-C. James GREENWOOD et al. SHEREE. 2013;310(19): 7522-3646 (http://education.[employer]/faq/YLK650) Chol/HDLC Ratio 5.2(H) <5.0 (calc) [facility] Non-HDL Cholesterol 166(H) <130 mg/dL (calc) [facility] Comment: For patients with diabetes plus 1 major ASCVD risk factor, treating to a non-HDL-C goal of <100 mg/dL (LDL-C of <70 mg/dL) is considered a therapeutic option. Blood Venous blood specimen / Unknown 07/24/2022 9:07 AM EST 07/24/2022 9:08 AM EST Narrative [facility] - 07/24/2022 9:39 PM EST FASTING:NO FASTING: NO us Martín Name LAB BLOOD ORDERABLES Final Resul t [facility] [address] [facility], [place] [address] [facility] [address] [facility], ([address]) [place] [address] * Fecal immunochemical (07/15/2022) Fecal Immunoassay Test (External) Negative Stool Rectal contents / Unknown Historical Provider LAB BODY FLUIDS AND STOOL S ORDERABLES Final Result from Last 3 Months or Most Recently Relevant to Health Maintenance Insurance [facility] - [facility] - [facility] Care Teams Nurse Special Relationship Specialty Start Date End Date Name, MD Martín [address] [place] [address] PCP - General Family Medicine 07/18/15
--- OUTSIDE RECORDS SUMMARY | 2024-08-17 07:51 | XMS_ITS | Encounter Summary ---
Author Organization [employer] Address 75 [facility] 7t [place] [address] Care Team Providers Care Functional Support Analyst Name Role Phone Name, Martín MARKS Primary Care Provider [phone] Reason for Visit * Reason Onset Date Comments Hospital Follow-up 04/12/2024 Encounter Details Date Type Department Care Team ([facility] st Contact Info) Description 04/12/2024 Telephone [facility] MEDICINE [address] [place], [place] [phone] Name, MD Martín [address] [place] [address] Hospital Follow-up Social History Tobacco Use Types [...] from pt requesting a HDF appt. [place] [facility] of admission: 04/07/24 Discharge date: 04/12/24 Diagnosed: intestinal infection *Send message to [facility] Clinical Care Coordinators documented in this encounter Plan of Treatment Upcoming Encounters Date Type Department Care Team (Late st Contact Info) Description 09/02/2024 2:00 PM EDT Office Visit [facility] ADULT DENTAL [address] [place] [address] Erica, Kasia [address] [place] [address] 11/03/2024 3:45 PM EDT Office Visit [facility] MEDICINE [address] [place] [address] Name, MD Martín [address] [place] [address] documented as of this encounter Visit Diagnoses Not on filedocumented in this encounter Additional Health Concerns Assessment Noted Time PHQ-9 Depression Total Score: 22 024 11:54 AM EST documented as of this encounter Care Teams Functional Support Analyst Relationship Specialty Start Date End Date Name, MD Martín [address] [place] [address] PCP - General Family Medicine 07/18/15 documented as of this encounter
--- OUTSIDE RECORDS SUMMARY | 2024-08-17 07:51 | XMS_ITS | Encounter Summary ---
Author Organization [employer] Address 75 [facility] 7t [place] [address] Care Team Providers Care Electrical Control Assembler Name Role Phone Name, Martín MARKS Primary Care Provider [phone] Encounter Details Date Type Department Care Team ([facility] st Contact Info) Description 03/07/2023 Orders Only [facility] MED & PEDS [address] [place], [place] [phone] Geno Malave LPN Social History Tobacco Use [...] [facility] ADULT DENTAL [address] [place] [address] Erica, Kasia [address] [place] [address] 11/03/2024 3:45 PM EDT Office Visit [facility] MEDICINE [address] [place] [address] Name, MD Martín [address] [place] [address] documented as of this encounter Procedures Procedure Name Priority Date/Time Associated Diagnosis Comments BI MAMMOGRAM SCREENING TOMOSYNTHESIS BILATERAL Routine 03/11/2023 2:45 PM EDT documented in this encounter Results * BI Mammogram Screening Tomosynthesis Bilateral (03/11/2023 2:45 PM EDT) Anatomical Region Laterality Modality Breast Bilateral Mammography 03/11/2023 2:45 PM EDT Narrative 03/29/2023 1:32 PM EST ? [facility] [place] ? [address] [facility] [address] ?[place] [address] ? Mammography Report ? Signed ? Patient: Raimundo Abdalla,Eduarda ?MR ?? #: [id number] ? : 1950 ?Acct:[id number] ? Age/Sex: 72 / F ?ADM Date: 10/24/23 ? Loc: HO.MAMMO ? Attending : Martín Pittman MD ? Ordering Physician: Toya,Martín MARKS ?Results: 1Negative ? Date of Service: 03/11/23 ?Follow Up: 1 Year From Orig ?? inal Mammogram ? Procedure(s): MM tomosynthesis screening BI ?? Accession Number(s): [id number] ? cc: Toya,Martín MARKS ? EXAMINATION: ?? [...] ? DD/DT: 03/11/ 1445 ? TD/TT: ? Front End Web Designer: ? Procedure Note Donotuseinterpreter, Image - 03/29/2023 [facility] [address] [place] [address] Mammography Report Signed Patient: Wendie Faye MMR #: [id number] : 3Acct:[id number] Age/Sex: 72 / FADM Date: 03/11/23 Loc: HO.MAMMO Attending Dr: Martín Pittman MD Ordering Physician: Martín Pittman MDResults: 1Negative Date of Service: 03/11/23Follow Up: 1 Year From Orig inal Mammogram Procedure(s): MM tomosynthesis screening BI Accession Number(s): [id number] cc: Martín Pittman MD EXAMINATION: MM SCREENING [...] in OV> 03/29/23 1329 DD/ 1445 TD/TT: Front End Web Designer: Martín Pittman MD IMG BI PROCEDURES Edited Result - Final documented in this encounter Visit Diagnoses Not on filedocumented in this encounter Care Teams Electrical Control Assembler Relationship Specialty Start Date End Date Name, MD Martín [address] [place] [address] PCP - General Family Medicine 07/18/15 documented as of this encounter
--- OUTSIDE RECORDS SUMMARY | 2024-08-17 07:51 | XMS_ITS | Encounter Summary ---
Author Organization [id number] Address 75 [facility] 7t [place] [address] Care Team Providers Care Sustainable Products Marketing Manager Name Role Phone Name, Martín MARKS Primary Care Provider [phone] Reason for Visit * Reason Onset Date Comments Med Refill 07/22/2023 Encounter Details Date Type Department Care Team ([facility] st Contact Info) Description 07/22/2023 Telephone [facility] MEDICINE [address] [place], [place] [phone] Name, MD Martín [address] [place] [address] Med Refill Social History Tobacco Use Types [...] sent to: [facility]/pharmacy #[id number] [place] [address] documented in this encounter Plan of Treatment Upcoming Encounters Date Type Department Care Team (Late st Contact Info) Description 09/02/2024 2:00 PM EDT Office Visit [facility] ADULT DENTAL [address] [place] [address] Erica, Kasia [address] [place] [address] 11/03/2024 3:45 PM EDT Office Visit [facility] MEDICINE [address] [place] [address] Name, MD Martín [address] [place] [address] documented as of this encounter Visit Diagnoses Not on filedocumented in this encounter Care Teams Sustainable Products Marketing Manager Relationship Specialty Start Date End Date Name, MD Martín [address] [place] [address] PCP - General Family Medicine 07/18/15 documented as of this encounter
--- OUTSIDE RECORDS SUMMARY | 2024-08-17 07:51 | XMS_ITS | Encounter Summary ---
Author Organization [employer] Address 75 [facility] 7t [place] [address] Care Team Providers Care Senior Sharepoint Architect Name Role Phone Name, Martín MARKS Primary Care Provider [phone] Reason for Visit * Reason Comments Med Refill Encounter Details Date Type Department Care Team ([facility] st Contact Info) Description 04/09/2023 Refill [facility] MEDICINE [address] [place], [place] [phone] Name, MD Martín [address] [place] [address] Social History Tobacco Use Types Packs/Day Years [...] Description 09/02/2024 2:00 PM EDT Office Visit [facility] ADULT DENTAL [address] [place] [address] Erica, Kasia [address] [place] [address] 11/03/2024 3:45 PM EDT Office Visit [facility] MEDICINE [address] [place] [address] Name, MD Martín [address] [place] [address] documented as of this encounter Visit Diagnoses Not on filedocumented in this encounter Care Teams Senior Sharepoint Architect Relationship Specialty Start Date End Date Name, MD Martín [address] [place] [address] PCP - General Family Medicine 07/18/15 documented as of this encounter
--- OUTSIDE RECORDS SUMMARY | 2024-08-17 07:51 | XMS_ITS | Encounter Summary ---
Author Organization [employer] Address 75 [facility] 7t [place] [address] Care Team Providers Care Sheet Metal Welder Name Role Phone Name, Martín MARKS Primary Care Provider [phone] Encounter Details Date Type Department Care Team (Late st Contact Info) Description 10/28/2022 Abstract [facility] MEDICINE [address] [place] [address] Martín Pittman MD [address] [place] [address] Social History Tobacco Use Types Packs/Day Years [...] Visit [facility] ADULT DENTAL [address] [place] [address] [phone] Erica, Kasia [address] [place] [address] 11/03/2024 3:45 PM EDT Office Visit [facility] MEDICINE [address] [place] [address] Martín Pittman MD [address] [place] [address] documented as of this encounter Visit Diagnoses Not on filedocumented in this encounter Care Teams Sheet Metal Welder Relationship Specialty Start Date End Date Name, MD Martín [address] [place] [address] PCP - General Family Medicine 07/18/15 documented as of this encounter
--- OUTSIDE RECORDS SUMMARY | 2024-08-17 07:51 | XMS_ITS | Encounter Summary ---
Author Organization [employer] Address 75 [facility] 7t [place] [address] Care Team Providers Care Land Checker Name Role Phone Name, Martín MARKS Primary Care Provider [phone] Reason for Visit * Reason Comments Med Refill Encounter Details Date Type Department Care Team (Late st Contact Info) Description 09/25/2022 Refill [facility] MEDICINE [address] [place] [address] [phone] Name, MD Martín [address] [place] [address] Insomnia, unspecified type Social History Tobacco Use [...] Visit [facility] ADULT DENTAL [address] [place], [place] [phone] Erica, Kasia [address] [place] [address] 11/03/2024 3:45 PM EDT Office Visit [facility] MEDICINE [address] [place] [address] Name, MD Martín [address] [place] [address] documented as of this encounter Visit Diagnoses Diagnosis Insomnia, unspecified type documented in this encounter Care Teams Land Checker Relationship Specialty Start Date End Date Name, MD Martín [address] [place] [address] PCP - General Family Medicine 07/18/15 documented as of this encounter
--- OUTSIDE RECORDS SUMMARY | 2024-08-17 07:51 | XMS_ITS | Encounter Summary ---
Author Organization [employer] Address 75 [facility] 7t [place] [address] Care Team Providers Care Mold Capper Name Role Phone Name, Martín MARKS Primary Care Provider Reason for Visit * Reason Onset Date Comments Call Back Request 07/11/2023 Encounter Details Date Type Department Care Team ([facility] st Contact Info) Description 07/11/2023 Telephone [facility] MEDICINE [address] [place], [place] [phone] Name, MD Martín [address] [place] [address] Call Back Request Social History Tobacco Use [...] T/C to pt. For below message through [employer] [place] - [id number], pt. States she has already apt. For CT scan, pt. Is all set right now. Advised to give call to [facility] if any question or concerns. * Telephone Encounter - Sharon Langford - 07/11/2023 11:45 AM EST Tc from pt requesting order for ct scan on left hand stated talk with PCP about this please contactpt for clarifications. documented in this encounter Plan of Treatment Upcoming Encounters Date Type Department Care Team ([facility] st Contact Info) Description 09/02/2024 2:00 PM EDT Office Visit [facility] ADULT DENTAL [address] [place] [address] Erica Kasia [address] [place] [address] 11/03/2024 3:45 PM EDT Office Visit [facility] MEDICINE [address] [place] [address] NameMartín MD [address] [place] [address] documented as of this encounter Visit Diagnoses Not on filedocumented in this encounter Care Teams Mold Capper Relationship Specialty Start Date End Date NameMartín MD [address] [place] [address] PCP - General Family Medicine 07/18/15 documented as of this encounter
--- OUTSIDE RECORDS SUMMARY | 2024-08-17 07:51 | XMS_ITS | Encounter Summary ---
Author Organization [employer] Address 75 [facility] 7t [place] [address] Care Team Providers Care Net Lead Architect Name Role Phone Name, Martín MARKS Primary Care Provider [phone] Reason for Visit * Reason Onset Date Comments Med Refill 10/21/2022 Encounter Details Date Type Department Care Team ([facility] Contact Info) Description 10/21/2022 Refill [facility] MEDICINE [address] [place], [place] [phone] Name, MD Martín [address] [place] [address] Insomnia, unspecified type Social History Tobacco Use [...] Upcoming Encounters Date Type Department Care Team ([facility] Contact Info) Description 09/02/2024 2:00 PM EDT Office Visit [facility] ADULT DENTAL [address] [place] [address] Kasia Maldonado [address] [place] [address] 11/03/2024 3:45 PM EDT Office Visit [facility] MEDICINE [address] [place] [address] Name, MD Martín [address] [place] [address] documented as of this encounter Visit Diagnoses Diagnosis Insomnia, unspecified type documented in this encounter Care Teams Net Lead Architect Relationship Specialty Start Date End Date Name, MD Martín [address] [place] [address] PCP - General Family Medicine 07/18/15 documented as of this encounter
--- OUTSIDE RECORDS SUMMARY | 2024-08-17 07:51 | XMS_ITS | Encounter Summary ---
Author Organization [employer] Address 75 [facility] 7t [place] [address] Care Team Providers Care Box Shook Patcher Name Role Phone Name, Martín MARKS Primary Care Provider [phone] Encounter Details Date Type Department Care Team ([facility] st Contact Info) Description 03/25/2023 Orders Only [facility] MEDICINE [address] [place], [place] [phone] Name, MD Martín [address] [place] [address] Social History Tobacco Use Types Packs/Day Years [...] Description 09/02/2024 2:00 PM EDT Office Visit [facility] ADULT DENTAL [address] [place] [address] Erica, Kasia [address] [place] [address] 11/03/2024 3:45 PM EDT Office Visit [facility] MEDICINE [address] [place] [address] Name, MD Martín [address] [place] [address] documented as of this encounter Visit Diagnoses Not on filedocumented in this encounter Care Teams Box Shook Patcher Relationship Specialty Start Date End Date Name, MD Martín [address] [place] [address] PCP - General Family Medicine 07/18/15 documented as of this encounter
--- OUTSIDE RECORDS SUMMARY | 2024-08-17 07:51 | XMS_ITS | Encounter Summary ---
Author Organization [employer] Address 75 [facility] 7t [place] [address] Care Team Providers Care Cement Mixer Name Role Phone Name, Martín MARKS Primary Care Provider [phone] Reason for Visit * Reason Comments Med Refill Encounter Details Date Type Department Care Team ([facility] st Contact Info) Description 05/24/2023 Refill [facility] MEDICINE [address] [place], [place] [phone] Name, MD Martín [address] [place] [address] Allergic rhinitis, unspecified seasonality, unspecified trigger Social [...] Description 09/02/2024 2:00 PM EDT Office Visit [facility] ADULT DENTAL [address] [place] [address] EricaLongKasia 230 [place] [address] 11/03/2024 3:45 PM EDT Office Visit [facility] MEDICINE [address] [place] [address] NameMartín MD [address] [place] [address] documented as of this encounter Visit Diagnoses Diagnosis Allergic rhinitis, unspecified seasonality, unspecified trigger documented in this encounter Care Teams Cement Mixer Relationship Specialty Start Date End Date Martín Pittman MD [address] [place] [address] PCP - General Family Medicine 07/18/15 documented as of this encounter
--- OUTSIDE RECORDS SUMMARY | 2024-08-17 07:51 | XMS_ITS | Encounter Summary ---
Author Organization [employer] Address 75 [facility] 7t [place] [address] Care Team Providers Care Biometry Teacher Name Role Phone Name, Martín MARKS Primary Care Provider Reason for Visit * Reason Comments Med Refill Encounter Details Date Type Department Care Team (Late st Contact Info) Description 07/26/2022 Refill [facility] MEDICINE [address] [place] [address] [phone] Name, MD Martín [address] [place] [address] Insomnia, unspecified type Social History Tobacco Use [...] Description 09/02/2024 2:00 PM EDT Office Visit [facility] ADULT DENTAL [address] [place], [place] [phone] Kasia Maldonado [address] [place] [address] 11/03/2024 3:45 PM EDT Office Visit [facility] MEDICINE [address] [place] [address] Name, MD [place] [address] documented as of this encounter Visit Diagnoses Diagnosis Insomnia, unspecified type documented in this encounter Care Teams Biometry Teacher Relationship Specialty Start Date End Date Name, MD [place] [address] PCP - General Family Medicine 07/18/15 documented as of this encounter
--- OUTSIDE RECORDS SUMMARY | 2024-08-17 07:51 | XMS_ITS | Encounter Summary ---
Author Organization [employer] Address 75 [facility] 7t [place] [address] Care Team Providers Care Soap Tender Name Role Phone Name, Martín MARKS Primary Care Provider [phone] Reason for Visit * Reason Comments Med Refill Encounter Details Date Type Department Care Team ([facility] st Contact Info) Description 01/21/2024 Refill [facility] MEDICINE [address] [place], [place] [phone] Name, MD Martín [address] [place] [address] Insomnia, unspecified type Social History Tobacco Use [...] Office Visit [facility] ADULT DENTAL [address] [place] [address] Erica, Kasia [address] [place] [address] 11/03/2024 3:45 PM EDT Office Visit [facility] MEDICINE [address] [place] [address] NameMartín MD [address] [place] [address] documented as of this encounter Visit Diagnoses Diagnosis Insomnia, unspecified type documented in this encounter Additional Health Concerns Assessment Noted Time PHQ-9 Depression Total Score: 10 024 1:21 PM EDT documented as of this encounter Care Teams Soap Tender Relationship Specialty Start Date End Date NameMartín MD [address] [place] [address] PCP - General Family Medicine 07/18/15 documented as of this encounter
[2024-08-17] MEDS: Lactated Ringers 1,000 ML 100 ML IVCONT ×2 (07:59→15:27)
--- NOTE | 2024-08-17 08:56 | PHA.MEDREC ---
Pharmacy Consult ? Medication Reconciliation Pharmacy has reviewed the medication reconciliation completed by nursing. Spoke with patient, she is no longer on amlodipine, and is on pantoprazole (not omperazole). She picks up her Ambien script and trades with her friend. She does not take Zolpidem and does take Clonazepam 0.5mg at bedtime provided by her friend.
--- NOTE | 2024-08-17 09:34 | MHC.SHP ---
Pre-Procedural Eval Section A - 24 Hr Update-Section A only Date of Service: 08/17/24 The patient is an INPATIENT: No Changes since office visit: No Cold of Flu in the past 2 weeks, No New Medical Problems, No Changes in Medication and No Patient answered all questions The patient has been examined within 24 hours of the surgical procedure. The History & Physical has been completed within 30 days and I have reviewed it.: Yes Section B - Complete if H&P > 30 days Chief Complaint: recurrent diverticulitis Allergies: Allergies Allergy/AdvReac Type Severity Reaction Status Date / Time No Known Allergies Allergy Verified 07/21/24 14:58 Plan I have reviewed the history and physical and performed a pertinent physical examination on my patient. No changes have occurred unless specified. Time Spent With Patient Time: Total time managing care of this patient today ____ minutes.
--- NOTE | 2024-08-17 13:30 | P.OP_ITS ---
Operative Note Operative Note Date of Service: 08/17/24 Narrative: Preop diagnosis: Recurrent sigmoid diverticulitis Postop diagnosis: Recurrent sigmoid diverticulitis, with extensive adhesions Procedure: Hand assisted laparoscopic sigmoid resection, mobilization of the splenic flexure, end-to-end anastomosis, extensive lysis of adhesions; intraop flexible sigmoidoscopy Surgeon: Tim Cifuentes MD cardiovascular physician assistant: YOON Zimmerman The patient is a 73 year old female with multiple episodes of sigmoid diverticulitis. She had previous CT scans showing the same segment diverticulitis. She therefore wanted to proceed with resection. She understood the technique of the planned procedure as well as the risks, benefits, and alternatives She was brought to the operating room. A TAP block was done by the anesthesiologist. She was placed in modified lithotomy position under general anesthesia via endotracheal tube. A Armenta catheter was inserted. The abdomen and the perineum were prepped and draped usual sterile fashion. A surgical time-out was done. The patient received Cefotan 2 g IV preoperatively. I made a short infraumbilical midline incision using blade 10. This was carried down with electrocautery through the full-thickness of the skin and subcutaneous fat. The patient did have we can amounts of subcutaneous fat. We eventually reached the fascia. The fascia was incised. The peritoneum was entered. Immediately, large amounts of adhesions were noted mostly on the pelvis as well as in the right side in the upper part of the incision I therefore proceeded to gently do careful dissection of these very dense adhesions. This was likely secondary to her previous colectomy There were some loops of small bowel that were markedly adherent right next to the midline incision. As we were sharply dissecting this off of the fascia we noticed an enterotomy, about 1.5 cm. We completed lysis of adhesions of this segment. We continued to lyse adherent omentum from the upper abdomen as well. This part of the procedure took an extended period of time. Eventually we are able to clear up the areas surrounding the fascial incision. We therefore proceeded to repair this enterotomy. I closed this with full- thickness Polysorb 2-0 running stitch. I applied a 2nd layer of Lembert type seromuscular Polysorb 3-0 simple interrupted sutures. I tested the anastomosis using the index finger and thumb and this appeared patent. The repair appeared intact We then proceeded to replace the bowel into the peritoneal cavity. We applied the Eugenio wound retractor. We attached the GelPort along with the insufflating port. With laparoscopic visualization this insufflating port using a 10 mm 30 degree scope, I proceeded to insert a 5/12 mm port in the epigastric area through a small stab incision The patient was then placed in a head down position. I moved the laparoscope into the epigastric port. With laparoscopic visualization I inserted my hand through the GelPort. Immediately we noted very dense adhesions in the pelvis. The sigmoid as well was very densely adherent to the left sidewall. I inserted a 5/12 mm port in the lateral quadrant I then proceeded to gently separate the markedly adherent sigmoid from the p elvic sidewall. This was noted to be very adherent so we had to do careful dissection with the [place] LigaSure along with gentle blunt dissection with my index finger as well as my thumb. We continued to dissect this long adherent segment of the sigmoid off of the sidewall. This part of the procedure took an extended period of time. Eventually we are able to free this up. I was able to feel the entire indurated segment representing the articular disease. This was a long segment of the mid sigmoid. I mobilized the left colon by gently dividing the ligamentous attachments along the white line of Toldt. We then proceeded to carefully define the distal sigmoid. Again, at the level of the rectosigmoid, there were very dense adhesions. The mesentery was also very indurated. We initially could not feel nor identify the distal rectosigmoid and rectum itself as the distal sigmoid seemed to be stuck in the lower pelvis. There was note of small bowel loops adherent to the pelvis as well so we had to do careful lysis of the adhesions to release all these small bowel loops using the Endo scissors as well as with electrocautery. Eventually we are able to retract all the small bowel loops away from the pelvis. We therefore proceeded to do mm by mm dissection of the sigmoid using the [place] dissector as well as the finger. I carefully the sigmoid starting from the well-defined mid sigmoid distally along previously dissected planes. Again, this part of the procedure took an extended period of time. Eventually was able to completely free up the entire rectosigmoid identify the proximal rectum. The induration extended all the way to the rectosigmoid. I proceeded to gently dissect the rectosigmoid past this level of induration using my index finger and the LigaSure to create a mesenteric window. I divided this segment with an Endo-DONNY 60 mm stapler. A remaining band of mesentery was divided some more with an Endo-DONNY 30 mm stapler I then proceeded to identify my proximal resection. I chose a supple segment in the proximal sigmoid. I created a mesenteric window using the index finger and the LigaSure. I transected this with a an Endo-DONNY 60 mm stapler. I can completed resection by dividing the attached indurated very thickened mesentery carefully using the LigaSure all the way to connect with the distal resection. We retrieved the diseased long segment sigmoid through the midline incision I repositioned all the ports and re-insufflated We tested the length of the remaining left colon sigmoid and it appeared that we needed to mobilize some more to allow this to reach down into the low pelvis. I therefore used the LigaSure to divide the remaining ligamentous attachments along the white line of Toldt on the proximal left colon. I mobilized the the splenic flexure by dividing the splenocolic ligaments and the attached peritoneum using the LigaSure. We had to insert an extra 5 mm port in the left lower quadrant to allow me to reach the splenic flexure for this mobilization. Eventually, it appeared that we had adequate mobilization of the left colon splenic flexure to allow the proximal staple line to reach the pelvis. We desufflated. I brought up the proximal staple line a midline incision. We opened up the staple line by excising this with electrocautery. We dilated this to 25 cm using the dilators. We dilated this using the 28 cm dilator. However, we noticed serosal tears while we used the 28 cm dilator. We therefore had to transect more of this stump using the DONNY 60 mm stapler. I then dilated this again to 25 cm and decided against dilating this some more. I created my pursestring using a Prolene 2-0. I positioned the anvil with the lumen. I tightened the pursestring around the anvil. I cleaned up the area surrounding the pursestring by excising some of the thick indurated fatty tissue We then placed this stump back into the peritoneal cavity. This appeared to reach bili now after mobilization of the splenic flexure. We did have to divide some peritoneal attachments on the retroperitoneum as well to create more length The 1st speech language pathology assistant then proceeded to advance the dilator through the rectum and we saw this laparoscopically at the staple line. We used the EEA 25 mm apparatus and this was advanced to the staple line anteriorly. The spike was activated anterior to the staple line. I attached the anvil until this locked onto place with the spike. The EEA stapler was then tightened and fired. We made sure that there were no other structures caught between the staple lines. The EEA stapler was withdrawn. The anastomotic rings were examined. There were 2 intact anastomotic rings. We tested the staple line by insufflating the rectum with a bulb syringe with the staple line immersed in irrigating fluid. There was no bubbling noted. We then proceeded to do an flexible sigmoidoscopy. We were able to advance this past the anastomosis. The anastomosis was patent. There was no signs of any bleeding. There was no signs of any leak with the anastomosis immersed in irrigating fluid. There was no signs of ischemia either We briefly through the flexible sigmoidoscope We then irrigated the pelvis and suctioned out the irrigant fluid. We observed for hemostasis I then proceeded to read the small bowel starting from near the ligament of Treitz all the way to the distal ileum. The repaired enterotomy was examined and this appeared intact and patent. The rest of the small bowel loops that were earlier in the adherent to the pelvis were examined there was no other evidence of any bowel injury. We then re-insufflated and did laparoscopic examination of the entire peritoneal cavity. There was no he was of any bleeding. There was no evidence of any injury. There was no twisting in the sigmoid and the anastomosis . There was no significant tension on the anastomosis. We therefore desufflated and removed the wound retractor. We closed the fascia with a running Maxon 1 stitch. We examined the fascial closure laparoscopically through the epigastric port and there were no bowel loops caught by the sutures. The fascial closure. Intact. We therefore desufflated and removed all ports I irrigated the midline incision. I closed all incisions with skin samson. Dressings were applied. The procedure was completed The patient tolerated the procedure well. There were no immediate complications. Initial and final counts of sponges and instruments were correct. Estimated blood loss was about 100 50 cc The urine output was clear Patient then extubated without difficulty and transferred to the recovery room with stable vital signs.
--- NOTE | 2024-08-17 15:51 | PM.EVENT ---
Event Note Date of Service: 08/18/24 Event Note: Seen multiple times in PACU Reported to be hypotensive earlier and was given phenylephrine Urine appeared concentrated Patient observed closely in the PACU Given 1 L of bolus Blood pressure has been steady at 110 systolic, HR in the 80s Abdomen remained soft Likely behind on fluids especially in view of bowel prep Continue IV fluids We will admit to C Pain management Daughter Delmy updated Time Spent With Patient Time: Total time managing care of this patient today ____ minutes.
[2024-08-17] MEDS: Acetaminophen 1,000 MG/100 ML PIGGYBACK 400 MG IV (19:03)
[2024-08-17] MEDS: oxyCODONE HCl Immed Release 5 MG TABLET PO (19:04)
[2024-08-17] MEDS: clonazePAM 0.5 MG TABLET PO (21:27)
[2024-08-17] MEDS: 0.9 % Sodium Chloride Flush 3 ML SYRINGE IVFLUSH (21:28)
[2024-08-18] VITALS (7 sets, daily range): BP systolic 97–134; BP diastolic 58–87; PULSE 88–97; RESP 16–20; TEMP 36.3–36.7; O2SAT 93–97
[2024-08-18] MEDS: Lactated Ringers 1,000 ML 100 ML IVCONT ×3 (01:11→23:21)
[2024-08-18] MEDS: Acetaminophen 1,000 MG/100 ML PIGGYBACK 400 MG IV ×4 (01:11→19:53)
[2024-08-18] MEDS: Omeprazole 20 MG CAPSULE.DR PO (05:55)
[2024-08-18] MEDS: oxyCODONE HCl Immed Release 5 MG TABLET PO ×3 (05:55→23:19)
--- NOTE | 2024-08-18 07:29 | PM.PNGS ---
Subjective Subjective Date of Service: 08/18/24 <Ana Cristina Zimmerman PA-C - Last Filed: 08/18/24 07:33> 08/18/24 <Tim Cifuentes MD - Last Filed: 08/18/24 14:44> Interval history: Feels ok this morning, sore. Has not been OOB. Denies nausea. denies flatus. <Ana Cristina Zimmerman PA-C - Last Filed: 08/18/24 07:33> Physical Exam Vital Signs: Vital Signs: Last Vital Signs Temp 98.1 F 08/18/24 03:49 Pulse 97 08/18/24 03:49 Resp 16 08/18/24 03:49 BP 97/58 L 08/18/24 03:49 Pulse Ox 94 08/18/24 03:49 O2 Del Method Room Air 08/18/24 03:49 O2 Flow Rate 2 08/17/24 15:24 BMI result Body Mass Index 29.5 <Ana Cristina Zimmerman PA-C - Last Filed: 08/18/24 07:33> Const: General: comfortable, no acute distress and alert <Ana Cristina Zimmerman PA-C - Last Filed: 08/18/24 07:33> Orientation/consciousness: patient oriented x3 <SORAYA Polk Last Filed: 08/18/24 07:33> Resp: Effort & Inspection: normal respiratory effort <Ana Cristina Zimmerman PA-C - Last Filed: 08/18/24 07:33> GI: Other: mild abd distention <Ana Cristina Zimmerman PA-C - Last Filed: 08/18/24 07:33> Inspection: Yes incision (dressings intact ) <Ana Cristina Zimmerman PA-C - Last Filed: 08/18/24 07:33> Palpation (GI): Soft to palpation and Tenderness to palpation present (GI) (mild incisional) <SROAYA Polk Last Filed: 08/18/24 07:33> Skin: General skin exam: no rashes or lesions noted <SORAYA Polk Last Filed: 08/18/24 07:33> Neuro: General: patient oriented x3 and moves all extremities <Ana Cristina Zimmerman PA-C - Last Filed: 08/18/24 07:33> Objective Data Active Medications Calcium Carbonate (Calcium Carbonate 750 Mg Tab.Chew) 750 mg PO Q4H PRN PRN Reason: Heartburn Clonazepam (Clonazepam 0.5 Mg Tablet) 0.5 mg PO BEDTIME [facility] Last Admin: 08/17/24 21:27 Dose: 0.5 mg Documented By: LUIS Heparin Sodium (Porcine) (Heparin Sodium,Porcine 5,000 Unit/Ml Vial) 5,000 unit SUBCUT Q8H [facility] Lactated Ringer's (Lr) 1,000 mls @ 100 mls/hr IVCONT .Q10H [facility] Last Admin: 08/18/24 01:11 Dose: 100 mls/hr Documented By: LUIS Acetaminophen (Ofirmev) 1,000 mg in 100 mls @ 400 mls/hr IV Q6H [facility] Last Infusion: 08/18/24 01:33 Dose: Infused Documented By: LUIS Loratadine (Loratadine 10 Mg Tablet) 10 mg PO DAILY PRN PRN Reason: Allergy Symptoms Melatonin (Melatonin 3 Mg Tablet) 6 mg PO BEDTIME PRN PRN Reason: Insomnia Morphine Sulfate (Morphine Sulfate 4 Mg/Ml Cartridge) 4 mg IVPUSH Q4H PRN; Protocol PRN Reason: Pain, Severe (Pain Scale 7-10) Omeprazole (Omeprazole 20 Mg Capsule.Dr) 20 mg PO DAILY@0630 [facility] Last Admin: 08/18/24 05:55 Dose: 20 mg Documented By: LUIS Ondansetron HCl (Ondansetron Hcl 4 Mg/2 Ml Vial) 4 mg IVPUSH Q6H PRN PRN Reason: Nausea and Vomiting Oxycodone HCl (Oxycodone Hcl Immed Release 5 Mg Tablet) 5 mg PO Q4H PRN PRN Reason: Pain, Moderate(Pain Scale 4-6) Last Admin: 08/18/24 05:55 Dose: 5 mg Documented By: LUIS Sodium Chloride (0.9 % Sodium Chloride Flush 3 Ml Syringe) 3 ml IVFLUSH QSHIFT [facility] Last Admin: 08/17/24 21:28 Dose: 3 ml Documented By: LUIS <Ana Cristina Zimmerman PA-C - Last Filed: 08/18/24 07:33> Labs CBC & Chem 7: 08/18/24 07:36 08/18/24 07:36 <Ana Cristina Zimmerman PA-C - Last Filed: 08/18/24 07:33> Procedures Date of Service Date of Service: 08/18/24 <Ana Cristina Zimmerman PA-C - Last Filed: 08/18/24 07:33> 08/18/24 <Tim Cifuentes MD - Last Filed: 08/18/24 14:44> Progress Note: A&P Assessment and plan (1) Diverticular disease: Status: Acute <Ana Cristina Zimmerman PA-C - Last Filed: 08/18/24 07:33> Assessment and Plan: Has incisional pain Denies flatus No events overnight Abdomen is soft Encouraged to get out of bed today Incentive spirometry Pain management await return of GI functions Seen and examined independently Continue IV fluid <Tim Cifuentes MD - Last Filed: 08/18/24 14:44> Assessment and Plan: POD #1 s/p Hand assisted laparoscopic sigmoid resection, mobilization of the splenic flexure, end-to-end anastomosis, extensive lysis of adhesions; intraop flexible sigmoidoscopy. Doing well post op. No evidence of GI function yet. VSS. ABd exam benign with clean/intact dressings, appropriate post op tenderness. Will keep on clears for now. Dc sweeney. Dec IVF. Encouraged OOB/ambulation and IS use. Await return of GI function. patient comfortable with plan. <Ana Cristina Zimmerman PA-C - Last Filed: 08/18/24 07:33> Time Spent With Patient Time: Total time managing care of this patient today ____ minutes. <Ana Cristina Zimmerman PA-C - Last Filed: 08/18/24 07:33> Quality Stroke Does the patient have a stroke diagnosis?: No <Ana Cristina Zimmerman PA-C - Last Filed: 08/18/24 07:33> VTE Prior VTE?: No <Ana Cristina Zimmerman PA-C - Last Filed: 08/18/24 07:33> VTE Risk Level:: Medical - moderate - high <SORAYA Polk Last Filed: 08/18/24 07:33> VTE Device Contraindication: N/A - Device Ordered <Ana Cristina Zimmerman PA-C - Last Filed: 08/18/24 07:33> VTE Drug Contraindication: N/A - Med Ordered <Ana Cristina Zimmerman PA-C - Last Filed: 08/18/24 07:33>
[2024-08-18 07:39] LABS: MANUAL DIFF FLAG NO
[2024-08-18 07:49] LABS: Basophils Percent Auto 0.1 % (0-2); Hematocrit 30.3 % (37.0-47.0); Hemoglobin 10.1 g/dl (12.0-16.0); Imm Gran Abs Auto 0.05 X10*3/uL (0.00-0.03); Imm Gran Pct Auto 0.5 % (0.0-0.4); Lymphocytes Absolute Auto 1.3 X10*3/uL (1.2-4.9); Lymphocytes Percent Auto 12.5 % (20-40); Mean Corpuscular HGB Conc 33.3 g/dl (31.0-35.0); Mean Corpuscular Hemoglobin 28.4 pg (27.0-33.0); Mean Corpuscular Volume 85.1 fL (80.0-98.0); Mean Platelet Volume 8.8 fL (9.4-12.3); Monocytes Percent Auto 9.3 % (2-11); Neutrophils Absolute Auto 7.9 x10*3/uL (2.0-8.3); Neutrophils Percent Auto 77.6 % (45-73); Platelet Count 285 X10*3/uL (160-400); Red Blood Count 3.56 X10*6/uL (4.20-5.50); Red Cell Distribution Width 14.4 % (11.0-16.0); White Blood Count 10.2 X10*3/uL (4.8-10.8)
[2024-08-18 07:59] LABS: Anion Gap 12 (12-20); Blood Urea Nitrogen 13 mg/dL (9-16); Calcium 8.6 mg/dL (8.4-10.2); Carbon Dioxide 24 mmol/L (22-29); Chloride 109 mmol/L (96-108); Creatinine Clr Calc Pharmacy 63.7; Estimated Glomerular Filt Rate > 60; Glucose Fasting 119 mg/dL (60-99); Potassium 4.5 mmol/L (3.3-5.1); Sodium 140 mmol/L (135-145)
--- NOTE | 2024-08-18 08:35 | HO.POSTANES ---
Post Anesthesia Evaluation Post Anesthesia Evaluation Date of Service: 08/18/24 Vital Signs: Vital Signs Temp Pulse Resp BP Pulse Ox O2 Del Method 08/18/24 07:57 97.4 F 88 20 121/87 95 Room Air 08/18/24 03:49 98.1 F 97 16 97/58 L 94 Room Air 08/18/24 00:00 97.7 F 91 18 111/64 97 Room Air Anesthesia: General Endotracheal-GETA Mental Status: Awake Pain Control: Satisfactory Nausea/Vomiting: None Hydration: Adequate Anesthesia-Related Issues: No Anes. Related Issues
--- NOTE | 2024-08-18 09:00 | MHC.CM.PN ---
IMM 08/18. This CM met with pt with the assistance of a manager terminal. Pt lives alone at home, she has a [employer] 9 hours per week, and uses a cane. Pts will transport her home at discharge. HCP on file and verified. PCP: Martín Pittman
[2024-08-18] MEDS: Heparin Sodium,Porcine 5,000 UNIT/ML VIAL 5000 UNIT SUBCUT ×2 (10:36→18:40)
--- NOTE | 2024-08-18 14:43 | PM.EVENT ---
Event Note Date of Service: 08/18/24 Event Note: Seen on afternoon rounds Labs from this morning okay Some incisional pain but otherwise seems to be well controlled She has been sitting on the recliner Denies flatus Stable vital signs Tolerating clear liquids Continue pain management Incentive spirometry Family in the room - updated Time Spent With Patient Time: Total time managing care of this patient today ____ minutes.
[2024-08-18] MEDS: clonazePAM 0.5 MG TABLET PO (19:55)
[2024-08-18] MEDS: 0.9 % Sodium Chloride Flush 3 ML SYRINGE IVFLUSH (19:57)
[2024-08-19] MEDS: Acetaminophen 1,000 MG/100 ML PIGGYBACK 400 MG IV ×4 (02:25→19:47)
[2024-08-19] MEDS: Heparin Sodium,Porcine 5,000 UNIT/ML VIAL 5000 UNIT SUBCUT ×3 (02:34→17:41)
[2024-08-19 03:14] VITALS: BP 153/82; PULSE 105; TEMP 37.2; O2SAT 95
[2024-08-19] MEDS: oxyCODONE HCl Immed Release 5 MG TABLET PO ×2 (05:59→19:47)
[2024-08-19] MEDS: Omeprazole 20 MG CAPSULE.DR PO (05:59)
--- NOTE | 2024-08-19 06:52 | P.PNGS_ITS ---
Subjective Subjective Date of Service: 08/19/24 <Mahendra Segoviat - Last Filed: 08/19/24 07:08> 08/19/24 <Ana Cristina Zimmerman PA-C - Last Filed: 08/19/24 08:05> 08/19/24 <Tim Cifuentes MD - Last Filed: 08/19/24 09:17> Interval history: No overnight events. Wendie reports feeling much better than yesterday. She endorses ambulating to restroom, voiding clear urine, and has passed flatus. No BM, no n/v, no chest pain, dyspnea, fever or chills. She has tolerate PO liquids. <Mahendra Jung - Last Filed: 08/19/24 07:08> Physical Exam 2 Vital Signs: Vital Signs: Last Vital Signs Temp 98.9 F 08/19/24 03:14 Pulse 105 H 08/19/24 03:14 Resp 18 08/18/24 23:21 BP 153/82 H 08/19/24 03:14 Pulse Ox 95 08/19/24 03:14 O2 Del Method Room Air 08/19/24 03:14 O2 Flow Rate 2 08/17/24 15:24 BMI result Body Mass Index 29.5 <[facility] - Last Filed: 08/19/24 07:08> Const: Orientation/consciousness: patient oriented x3 <[facility] - Last Filed: 08/19/24 07:08> Eyes: Other: EOMI <[facility] - Last Filed: 08/19/24 07:08> Sclerae: sclerae normal <[facility] - Last Filed: 08/19/24 07:08> Resp: Effort & Inspection: normal respiratory effort and able to speak in complete sentences <[facility] - Last Filed: 08/19/24 07:08> Auscultation: clear to auscultation bilaterally <[facility] - Last Filed: 08/19/24 07:08> Cardio: Rate: tachycardic <[facility] - Last Filed: 08/19/24 07:08> Rhythm: regular rhythm <[facility] - Last Filed: 08/19/24 07:08> Heart sounds: S1 normal heart sound present and S2 normal heart sound present <[facility] - Last Filed: 08/19/24 07:08> GI: Other: dressings clean and dry mild incisional tenderness to palpation <Mahendra Feng - Last Filed: 08/19/24 07:08> Other: incisions clean mild incisional tenderness to palpation <Ana Cristina Zimmerman PA-C - Last Filed: 08/19/24 08:05> Inspection: Yes distended <Mahendra Feng - Last Filed: 08/19/24 07:08> Inspection: Yes distended (minimally, soft ) <Ana Cristina Zimmerman PA-C - Last Filed: 08/19/24 08:05> Palpation (GI): Soft to palpation and no guarding <Ana Cristina Zimmerman PA-C Last Filed: 08/19/24 08:05> Percussion: Yes normal to percussion <Mahendra Feng - Last Filed: 08/19/24 07:08> Auscultation: normal bowel sounds <Mahendra Feng - Last Filed: 08/19/24 07:08> Skin: General skin exam: no rashes or lesions noted <Ana Cristina Zimmerman PA-C - Last Filed: 08/19/24 08:05> Rashes: no rashes <Mahendra Feng - Last Filed: 08/19/24 07:08> Neuro: General: patient oriented x3 <Mahendra Feng Last Filed: 08/19/24 07:08> Objective Data Active Medications Calcium Carbonate (Calcium Carbonate 750 Mg Tab.Chew) 750 mg PO Q4H PRN PRN Reason: Heartburn Clonazepam (Clonazepam 0.5 Mg Tablet) 0.5 mg PO BEDTIME [facility] Last Admin: 08/18/24 19:55 Dose: 0.5 mg Documented By: LUIS Heparin Sodium (Porcine) (Heparin Sodium,Porcine 5,000 Unit/Ml Vial) 5,000 unit SUBCUT Q8H [facility] Last Admin: 08/19/24 02:34 Dose: 5,000 unit Documented By: LUIS Lactated Ringer's (Lr) 1,000 mls @ 100 mls/hr IVCONT .Q10H [facility] Last Admin: 08/18/24 23:21 Dose: 100 mls/hr Documented By: LUIS Acetaminophen (Ofirmev) 1,000 mg in 100 mls @ 400 mls/hr IV Q6H [facility] Last Infusion: 08/19/24 02:44 Dose: Infused Documented By: LUIS Loratadine (Loratadine 10 Mg Tablet) 10 mg PO DAILY PRN PRN Reason: Allergy Symptoms Losartan Potassium (Losartan Potassium 25 Mg Tablet) 25 mg PO DAILY [facility]; Protocol Melatonin (Melatonin 3 Mg Tablet) 6 mg PO BEDTIME PRN PRN Reason: Insomnia Morphine Sulfate (Morphine Sulfate 4 Mg/Ml Cartridge) 4 mg IVPUSH Q4H PRN; Protocol PRN Reason: Pain, Severe (Pain Scale 7-10) Omeprazole (Omeprazole 20 Mg Capsule.Dr) 20 mg PO DAILY@0630 [facility] Last Admin: 08/19/24 05:59 Dose: 20 mg Documented By: LUIS Ondansetron HCl (Ondansetron Hcl 4 Mg/2 Ml Vial) 4 mg IVPUSH Q6H PRN PRN Reason: Nausea and Vomiting Oxycodone HCl (Oxycodone Hcl Immed Release 5 Mg Tablet) 5 mg PO Q4H PRN PRN Reason: Pain, Moderate(Pain Scale 4-6) Last Admin: 08/19/24 05:59 Dose: 5 mg Documented By: LUIS Sodium Chloride (0.9 % Sodium Chloride Flush 3 Ml Syringe) [facility] Last Admin: 08/18/24 19:57 Dose: 3 ml Documented By: LUIS <Mahendra Feng - Last Filed: 08/19/24 07:08> Labs CBC & Chem 7: 08/18/24 07:36 08/18/24 07:36 <Mahendra Feng - Last Filed: 08/19/24 07:08> Labs: Laboratory Results - last 24 hr 08/18/24 07:36 MCV 85.1 MCH 28.4 MCHC 33.3 RDW 14.4 Plt Count 285 MPV 8.8 L Immature Gran % (Auto) 0.5 H Neut % (Auto) 77.6 H Lymph % (Auto) 12.5 L [place] % (Auto) 9.3 Eos % (Auto) 0.0 Baso % (Auto) 0.1 Lymph # (Auto) 1.3 [place] # (Auto) 1.0 Eos # (Auto) 0.0 Baso # (Auto) 0.0 Abs Immat Gran (auto) 0.05 H Absolute Neuts (auto) 7.9 Absolute Nucleated RBC 0.000 Nucleated RBC % (auto) 0.0 Anion Gap 12 Estim Creat Clear Calc 63.7 Estimated GFR > 60 Fasting Glucose 119 H Calcium 8.6 D <Mahendra Feng - Last Filed: 08/19/24 07:08> Procedures Date of Service Date of Service: 08/19/24 <Mahendra Feng - Last Filed: 08/19/24 07:08> 08/19/24 <Ana Cristina Zimmerman PA-C - Last Filed: 08/19/24 08:05> 08/19/24 <Tim Cifuentes MD - Last Filed: 08/19/24 09:17> Progress Note: A&P Assessment and plan (1) Diverticular disease: Status: Acute <Mahendra Segoviat - Last Filed: 08/19/24 07:08> Assessment and Plan: She feels better today Good pain control Passing flatus Tolerated clear liquids well Able to ambulate Okay to advance diet Get out of bed and ambulate some more Incentive spirometry Pain management Looks well Seen and examined independently <Tmi Cifuentes MD - Last Filed: 08/19/24 09:17> (2) S/P colon resection: Status: Acute <Mahendra Feng - Last Filed: 08/19/24 07:08> Assessment and Plan: Wendie is POD 2 s/p from hand-assisted laparoscopic sigmoid resection, mobilization of the splenic flexure, end-to-end anastomosis, extensive lysis of adhesions; intraop flexible sigmoidoscopy. She is feeling better. On exam, she is tachycardic and hypertensive to SBP 150-160s. She has high urine output, which could suggest UTI. Reinforced IS use. Pain managed well. Plan to advance diet as tolerable. Nabil Feng MS3 <Mahendra Feng - Last Filed: 08/19/24 07:08> Wendie is POD 2 s/p from hand-assisted laparoscopic sigmoid resection, mobilization of the splenic flexure, end-to-end anastomosis, extensive lysis of adhesions; intraop flexible sigmoidoscopy. She is feeling better. On exam, she is tachycardic and hypertensive to SBP 150-160s. She has high urine output, which could suggest UTI. Reinforced IS use. Pain managed well. Plan to advance diet as tolerable. Nabil Feng, MS3 Agree with above assessment and plan. Patient POD #2 s/p hand assisted laparoscopic sigmoid resection, mobilization of the splenic flexure, end-to-end anastomosis, extensive lysis of adhesions; intraop flexible sigmoidoscopy. Continues to do well post op, feels improved this AM. Now with evidence of GI function. VSS- hypertensive. Abd exam benign with incisions, appropriate post op tenderness. Dc IVF. Advance to solid diet. Await BM. Cont OOB/ambulation and increasing activity. Resume home losartan this AM. <Ana Cristina Zimmerman PA-C - Last Filed: 08/19/24 08:05> Time Spent With Patient Time: Total time managing care of this patient today ____ minutes. <Mahendra Feng - Last Filed: 08/19/24 07:08> Quality Stroke Does the patient have a stroke diagnosis?: No <Mahendra Feng - Last Filed: 08/19/24 07:08> VTE Prior VTE?: No <Mahendra Feng - Last Filed: 08/19/24 07:08> VTE Risk Level:: Medical - moderate - high <Mahendra Feng - Last Filed: 08/19/24 07:08> VTE Device Contraindication: N/A - Device Ordered <Mahendra Feng - Last Filed: 08/19/24 07:08> VTE Drug Contraindication: N/A - Med Ordered <Mahendra Feng - Last Filed: 08/19/24 07:08>
[2024-08-19 06:53] VITALS: BP 161/81; PULSE 89; RESP 18; TEMP 36.5; O2SAT 93
[2024-08-19 11:02] VITALS: BP 137/81; PULSE 90; RESP 18; TEMP 36.2; O2SAT 93
--- NOTE | 2024-08-19 14:56 | PM.EVENT ---
Event Note Date of Service: 08/19/24 Event Note: Seen on afternoon rounds She says she has tolerated regular diet in small amounts Passing flatus Says she had a small bowel movement She says she feels relatively comfortable Ambulated well Abdomen is soft Continue pain management Encouraged to get out of bed some more Family in the room Time Spent With Patient Time: Total time managing care of this patient today ____ minutes.
[2024-08-19 15:17] VITALS: BP 125/72; PULSE 90; RESP 18; TEMP 36.7; O2SAT 96
[2024-08-19 19:00] VITALS: BP 135/72; PULSE 97; RESP 18; TEMP 36.9; O2SAT 94
[2024-08-19] MEDS: clonazePAM 0.5 MG TABLET PO (19:47)
[2024-08-19] MEDS: Losartan Potassium 25 MG TABLET PO (19:47)
[2024-08-19] MEDS: 0.9 % Sodium Chloride Flush 3 ML SYRINGE IVFLUSH (19:53)
[2024-08-19 23:18] VITALS: BP 124/72; PULSE 90; RESP 20; TEMP 36.3; O2SAT 96
[2024-08-20] MEDS: Acetaminophen 1,000 MG/100 ML PIGGYBACK 400 MG IV ×2 (02:45→08:01)
[2024-08-20] MEDS: oxyCODONE HCl Immed Release 5 MG TABLET PO (02:47)
[2024-08-20] MEDS: Heparin Sodium,Porcine 5,000 UNIT/ML VIAL 5000 UNIT SUBCUT (02:48)
[2024-08-20 03:05] VITALS: BP 154/72; PULSE 94; RESP 20; TEMP 37.4; O2SAT 97
[2024-08-20] MEDS: Omeprazole 20 MG CAPSULE.DR PO (06:27)
--- NOTE | 2024-08-20 07:10 | P.PNGS_ITS ---
Subjective Subjective Date of Service: 08/20/24 <Mahendra Segoviat - Last Filed: 08/20/24 07:24> 08/20/24 <Tim Cifuentes MD - Last Filed: 08/20/24 09:33> 08/20/24 <Ana Cristina Zimmerman PA-C - Last Filed: 08/20/24 14:47> Interval history: No overnight events. Wendie feels better since yesterday. She does report mild bilateral lower back pain that she attributes to increased bed time and position. ROS otherwise non- contributory. Tolerating small po intake. Ambulating without weakness or syncope. Last BM yesterday. <Mahendra Jung - Last Filed: 08/20/24 07:24> Physical Exam 2 Vital Signs: Vital Signs: Last Vital Signs Temp 99.3 F 08/20/24 03:05 Pulse 94 08/20/24 03:05 Resp 20 08/20/24 03:05 BP 154/72 H 08/20/24 03:05 Pulse Ox 97 08/20/24 03:05 O2 Del Method Room Air 08/19/24 23:18 O2 Flow Rate 2 08/17/24 15:24 BMI result Body Mass Index 29.5 <Mahendra Jung - Last Filed: 08/20/24 07:24> Const: General: comfortable and no acute distress <Mahendra Jung - Last Filed: 08/20/24 07:24> Orientation/consciousness: patient oriented x3 <Mahendra Jung - Last Filed: 08/20/24 07:24> Eyes: Other: EOMI no scleral icterus <[facility] - Last Filed: 08/20/24 07:24> Resp: Other: CTAB speaking in full sentences <Mahendra Jung - Last Filed: 08/20/24 07:24> Cardio: Other: tachycardic RRR, normal s1/s2 <Mahendra Jung - Last Filed: 08/20/24 07:24> GI: Other: soft, non-distended minimal incisional tenderness no erythema or rashes noted surgical incisions healing well, with samson intact <Mahendra Jung - Last Filed: 08/20/24 07:24> : Other: no CVA tenderness <Mahendra Jung - Last Filed: 08/20/24 07:24> Neuro: General: patient oriented x3 and moves all extremities <Mahendra Feng - Last Filed: 08/20/24 07:24> Extrem: Other: no pedal edema <Mahendra Feng - Last Filed: 08/20/24 07:24> Objective Data Active Medications Calcium Carbonate (Calcium Carbonate 750 Mg Tab.Chew) 750 mg PO Q4H PRN PRN Reason: Heartburn Clonazepam (Clonazepam 0.5 Mg Tablet) 0.5 mg PO BEDTIME [facility] Last Admin: 08/19/24 19:47 Dose: 0.5 mg Documented By: LUIS Heparin Sodium (Porcine) (Heparin Sodium,Porcine 5,000 Unit/Ml Vial) 5,000 unit SUBCUT Q8H [facility] Last Admin: 08/20/24 02:48 Dose: 5,000 unit Documented By: LUIS Acetaminophen (Ofirmev) 1,000 mg in 100 mls @ 400 mls/hr IV Q6H [facility] Last Infusion: 08/20/24 03:42 Dose: Infused Documented By: LUIS Loratadine (Loratadine 10 Mg Tablet) 10 mg PO DAILY PRN PRN Reason: Allergy Symptoms Losartan Potassium (Losartan Potassium 25 Mg Tablet) 25 mg PO BEDTIME [facility]; Protocol Last Admin: 08/19/24 19:47 Dose: 25 mg Documented By: LUIS Melatonin (Melatonin 3 Mg Tablet) 6 mg PO BEDTIME PRN PRN Reason: Insomnia Morphine Sulfate (Morphine Sulfate 4 Mg/Ml Cartridge) 4 mg IVPUSH Q4H PRN; Protocol PRN Reason: Pain, Severe (Pain Scale 7-10) Omeprazole (Omeprazole 20 Mg Capsule.) 20 mg PO DAILY@0630 [facility] Last Admin: 08/20/24 06:27 Dose: 20 mg Documented By: LUIS Ondansetron HCl (Ondansetron Hcl 4 Mg/2 Ml Vial) 4 mg IVPUSH Q6H PRN PRN Reason: Nausea and Vomiting Oxycodone HCl (Oxycodone Hcl Immed Release 5 Mg Tablet) 5 mg PO Q4H PRN PRN Reason: Pain, Moderate(Pain Scale 4-6) Last Admin: 08/20/24 02:47 Dose: 5 mg Documented By: LUIS Sodium Chloride (0.9 % Sodium Chloride Flush 3 Ml Syringe) 3 ml IVFLUSH QSHIFT [facility] Last Admin: 08/19/24 19:53 Dose: 3 ml Documented By: LUIS <Mahendra Feng - Last Filed: 08/20/24 07:24> Labs CBC & Chem 7: 08/18/24 07:36 08/18/24 07:36 <Mahendra Feng - Last Filed: 08/20/24 07:24> Procedures Date of Service Date of Service: 08/20/24 <Mahendra Feng - Last Filed: 08/20/24 07:24> 08/20/24 <Tim Cifuentes MD - Last Filed: 08/20/24 09:33> 08/20/24 <Ana Cristina Zimmerman PA-C - Last Filed: 08/20/24 14:47> Progress Note: A&P Assessment and plan (1) Diverticular disease: Status: Acute <Mahendra Feng - Last Filed: 08/20/24 07:24> Assessment and Plan: She feels well this morning Continues to have significant improvement with regards to pain control Tolerating diet Has flatus and BMs Able to ambulate well Looks well Abdomen is soft, benign, incisions clean and dry She says she is ready to be discharged I have reinforced with her the discharge instructions I have discussed plans with her daughter Delmy Evans report pending <Tim Cifuentes MD - Last Filed: 08/20/24 09:33> Assessment and Plan: Wendie is POD 3 from hand-assisted laparoscopic sigmoid resection. She is much improved form yesterday, though continues to be tachycardic >90 BPM, though exam otherwise benign. Occult bleed is possible given her lower back pain. without CVA tenderness or urinary symptoms, UTI or pyelonephritis less likely. Order CBC to check for anemia. Continue to advance diet. Nabil [email or web address] <Mahendra Feng - Last Filed: 08/20/24 07:24> Time Spent With Patient Time: Total time managing care of this patient today ____ minutes. <Mahendra Feng - Last Filed: 08/20/24 07:24> Quality Stroke Does the patient have a stroke diagnosis?: No <Mahendra Feng - Last Filed: 08/20/24 07:24> VTE Prior VTE?: No <Mahendra Feng - Last Filed: 08/20/24 07:24> VTE Risk Level:: Medical - moderate - high <Mahendra Feng - Last Filed: 08/20/24 07:24> VTE Device Contraindication: N/A - Device Ordered <Mahendra Feng - Last Filed: 08/20/24 07:24> VTE Drug Contraindication: N/A - Med Ordered <Mahendra Feng - Last Filed: 08/20/24 07:24>
[2024-08-20 08:00] VITALS: BP 140/82; PULSE 86; RESP 20; TEMP 36.6; O2SAT 96
[2024-08-20] MEDS: 0.9 % Sodium Chloride Flush 3 ML SYRINGE IVFLUSH (08:06)
--- NOTE | 2024-08-20 09:34 | P.PNGS_ITS ---
Subjective Subjective Date of Service: 08/20/24 Interval history: She says she feels well this morning Pain on incisions continues to improve Tolerating diet well Passing flatus and BMs Ambulating As per nursing staff, no events overnight Physical Exam 2 Vital Signs: Vital Signs: Last Vital Signs Temp 97.9 F 08/20/24 08:00 Pulse 86 08/20/24 08:00 Resp 20 08/20/24 08:00 BP 140/82 H 08/20/24 08:00 Pulse Ox 96 08/20/24 08:00 O2 Del Method Room Air 08/20/24 08:00 O2 Flow Rate 2 08/17/24 15:24 BMI result Body Mass Index 29.5 Const: General: comfortable and no acute distress Resp: Effort & Inspection: normal respiratory effort Cardio: Rate: regular rate GI: Other: Tenderness on incisions, appropriate to postop course Palpation (GI): Soft to palpation, not firm and no guarding Objective Data Active Medications Calcium Carbonate (Calcium Carbonate 750 Mg Tab.Chew) 750 mg PO Q4H PRN PRN Reason: Heartburn Clonazepam (Clonazepam 0.5 Mg Tablet) 0.5 mg PO BEDTIME [facility] Last Admin: 08/19/24 19:47 Dose: 0.5 mg Documented By: LUIS Heparin Sodium (Porcine) (Heparin Sodium,Porcine 5,000 Unit/Ml Vial) 5,000 unit SUBCUT Q8H [facility] Last Admin: 08/20/24 02:48 Dose: 5,000 unit Documented By: LUIS Acetaminophen (Ofirmev) 1,000 mg in 100 mls @ 400 mls/hr IV Q6H [facility] Last Infusion: 08/20/24 08:56 Dose: Infused Documented By: ARSENIO Loratadine (Loratadine 10 Mg Tablet) 10 mg PO DAILY PRN PRN Reason: Allergy Symptoms Losartan Potassium (Losartan Potassium 25 Mg Tablet) 25 mg PO BEDTIME [facility]; Protocol Last Admin: 08/19/24 19:47 Dose: 25 mg Documented By: LUIS Melatonin (Melatonin 3 Mg Tablet) 6 mg PO BEDTIME PRN PRN Reason: Insomnia Morphine Sulfate (Morphine Sulfate 4 Mg/Ml Cartridge) 4 mg IVPUSH Q4H PRN; Protocol PRN Reason: Pain, Severe (Pain Scale 7-10) Omeprazole (Omeprazole 20 Mg Capsule.) 20 mg PO DAILY@0630 [facility] Last Admin: 08/20/24 06:27 Dose: 20 mg Documented By: LUIS Ondansetron HCl (Ondansetron Hcl 4 Mg/2 Ml Vial) 4 mg IVPUSH Q6H PRN PRN Reason: Nausea and Vomiting Oxycodone HCl (Oxycodone Hcl Immed Release 5 Mg Tablet) 5 mg PO Q4H PRN PRN Reason: Pain, Moderate(Pain Scale 4-6) Last Admin: 08/20/24 02:47 Dose: 5 mg Documented By: LUIS Sodium Chloride (0.9 % Sodium Chloride Flush 3 Ml Syringe) 3 ml IVFLUSH QSNYFT [facility] Last Admin: 08/20/24 08:06 Dose: 3 ml Documented By: LESSAR[facility] Labs 08/18/24 07:36 08/18/24 07:36 Procedures Date of Service Date of Service: 08/20/24 Progress Note: A&P Assessment and plan (1) Diverticular disease: Status: Acute Assessment and Plan: Status post resection She looks well She states she is feeling well and is ready to be discharged Good GI functions Abdomen is soft and benign Good vital signs I have reviewed with her discharge instructions I have discussed discharge plans with her daughter Delmy I will see her in the office for postop visit Path report pending Time Spent With Patient Time: Total time managing care of this patient today ____ minutes. Quality Stroke Does the patient have a stroke diagnosis?: No VTE Prior VTE?: No VTE Risk Level:: Medical - moderate - high VTE Device Contraindication: N/A - Device Ordered VTE Drug Contraindication: N/A - Med Ordered
--- NOTE | 2024-08-20 10:59 | MHC.CM.PN ---
Patient has been medically cleared for dc to home today, self care. Last IMM was addressed on 08/18/2024.
[2024-08-20 11:22] VITALS: BP 139/94; PULSE 81; RESP 20; TEMP 36.4; O2SAT 97
--- NOTE | 2024-08-20 14:32 | P.DS_ITS ---
DS: Providers Provider Date of Service: 08/20/24 Date of admission: 08/17/24 07:47 Date of discharge: 08/20/24 Primary care physician: Martín Pittman MD Attending physician on admission: Tim Cifuentes Attending physician on discharge: Tim Cifuentes DS: Diagnosis Discharge Diagnosis (1) Diverticular disease: Status: Acute DS: Summary Hospital Course Hospital Course: HPI AT ADMISSION: 73-year-old female here for follow-up for her diverticulitis as well as for her right breast mass. She had undergone ultrasound biopsy of the right breast mass last 06/23/2024. She tolerated procedure well. She denies hematoma formation. She is also well known to me for diverticular disease. She has had multiple admissions last year for diverticulitis with a phlegmon. In view of this, she had decided to proceed with sigmoid resection. She had gone to [place] last month and says that she again had to be admitted to hospital because of an episode of diverticulitis. She had a CAT scan there at that time. She was given IV antibiotics and was sent home on oral antibiotics. She says she still has some low-grade abdominal pain even until now. She has good oral intake. She denies any fever or chills. In view of her multiple episodes of acute diverticulitis along with phlegmonous changes, I did explain to her the option of doing sigmoid resection in view of the likelihood of recurrent episodes. I explained the technique of this procedure as a hand assisted laparoscopic sigmoid resection, possible conversion to an open procedure as well as a diverting stoma. She presents now for the planned procedure. HOSPITAL COURSE: On 08/17/24, hand assisted laparoscopic sigmoid resection, mobilization of the splenic flexure, end-to-end anastomosis, extensive lysis of adhesions; intraop flexible sigmoidoscopy was performed by Dr. Cifuentes without immediate complication. The patient tolerated the procedure well. She was admitted post operatively for observation. She had an uncomplicated recovery course. She was started on clear liquids post operatively. Her sweeney was removed on POD #1. Her activity was increased. She began to pass flatus and was advanced to solids on POD #2. She began to have bowel movements. On POD #3, the day of discharge, she felt well and was tolerating a solid diet without nausea or vomiting, had good pain control and was ambulating without difficulty. She was hemodynamically stable. Her abdomen was benign with appropriate post op tenderness and clean incisions. She felt ready for discharge. She was discharged to home on 08/20/24 in stable condition. She is to follow up in the office in 2 weeks. Time Attestation Discharge Coordination Time (in mins): 40 Quality: Safe Use of Opioids Does Pt have an Active Cancer Diagnosis on the Problem List?: No Quality: Stroke Does the patient have a stroke diagnosis?: No Physical Exam Vital Signs: Vital Signs: Last Vital Signs Temp 97.6 F 08/20/24 11:22 Pulse 81 08/20/24 11:22 Resp 20 08/20/24 11:22 BP 139/94 H 08/20/24 11:22 Pulse Ox 97 08/20/24 11:22 O2 Del Method Room Air 08/20/24 11:22 O2 Flow Rate 2 08/17/24 15:24 BMI result Body Mass Index 29.5 Const: General: comfortable, no acute distress and alert Orientation/consciousness: patient oriented x3 Resp: Effort & Inspection: normal respiratory effort GI: Inspection: No distended and Yes incision (clean) Palpation (GI): Soft to palpation, Tenderness to palpation present (GI) (mild incisional) and no guarding Skin: General skin exam: no rashes or lesions noted Neuro: General: patient oriented x3 and moves all extremities DS: Data Data Completed and Pending Completed studies during hospitalization [Text1]: 08/17/24 13:16 Surgical [PTH] Routine A. Colon, rectosigmoid, segmental resection: Diverticular-associated segmental colitis. B. EEA Donuts: Colon within normal limits. Discharge Plan Discharge Anticipated Discharge Date/Time: 08/20/24 15:06 Patient Disposition: Home, Self-Care Discharge Diagnosis: s/p KASANDRA sigmoid resection Referrals: Tim Cifuentes MD [Physician] - 2 Weeks Name,MD aMrtín [Primary Care Provider] - 1 Week Discharge Medications: New docusate sodium [Colace] 100 mg capsule 100 mg PO BID Qty: 30 0RF oxycodone 5 mg tablet 5 mg PO Q4H PRN (Reason: pain (scale score 7-10)) Qty: 26 0RF Rx Instructions: Partial Fill upon patient request. Continued clonazepam 1 mg Tablet 0.5 mg PO BEDTIME pantoprazole 20 mg tablet,delayed release (DR/EC) 20 mg PO DAILY@0630 loratadine 10 mg tablet 10 mg PO DAILY PRN (Reason: Allergy Symptoms) Discontinued sodium,potassium,mag sulfates [Suprep Bowel Prep Kit] 17.5-3.13-1.6 gram recon soln See Rx Instructions PO .COMPLEX Qty: 354 0RF Rx Instructions: DILUTE; drink full amount early evening before AND next morning at least 2 hr before procedure; follow w 960 mL water PO neomycin 500 mg tablet 1 g PO TID Qty: 6 0RF Rx Instructions: administer at 1 PM, 2 PM, and 11 PM the day prior to surgery erythromycin 500 mg tablet 500 mg PO TID Qty: 6 0RF Rx Instructions: Two tablets at 1 pm, 2 pm, and 11 pm the day prior to the procedure No Action losartan 25 mg tablet 25 mg PO DAILY Qty: 90 3RF Discharge Orders: Discharge Order (Routine); Ordered 08/20/24 Ordered By: Tim Cifuentes Diet: Advance to usual diet Activity on Discharge: No heavy lifting Stand Alone Forms: Patient Portal Discharge page Print Language: Venezuelan Activity Restrictions/Additional Instructions: If the incision area is tender, you may apply an ice pack for short intervals (No more than 20 minutes on, followed by at least 20 minutes off). Do not apply heat. Do not use creams, lotions, or topical antibiotics. These can cause infection or allergic reaction. Ok to shower. You have samson closing your incision and these will be removed approximately 10-14 days after surgery. NO HEAVY LIFTING (>10lbs) or strenuous activity. Follow up in office in 2 weeks. ([phone]) Call Your Doctor If: -Your temperature exceeds 101.5? F -You experience excessive pain or swelling -You have an unexpected reaction to medication -You have excessive bleeding -You experience continued vomiting/nausea -Your incision begins to separate -Your incision shows signs of infection such as increased redness, swelling, excessive pain, drainage (light blood or clear fluid is normal) or heat Care Plan Goals: Return to baseline health and resume normal activities following recovery period. Health Concerns: recurrent diverticulitis HTN Plan of Treatment: s/p KASANDRA sigmoid resection follow up in office in 1-2 weeks, staple removal Assessment: Doing well post op. Discharge Date/Time: 08/20/24 13:51
== END 2024-08-20 13:51 | disposition home or self-care (01) | DRG 331 ==
LOC: HO.SSSA 07:48 → HO.S3 14:50 → HO.SSSA 15:29 → HO.IMC 19:09
PROVIDERS: Anesthesiology; Physician Assistant Surgical; Admitting Provider Surgery; PCP Internal Medicine Geriatric Medicine; Visit Provider Surgery
PROC: 0DTE0ZZ Resection of Large Intestine, Open Approach (ICD-10-PCS; principal; 2024-08-17 09:50)
DX: K57.32 Diverticulitis of large intestine without perforation or abscess without bleeding (principal); G89.18 Other acute postprocedural pain; K66.0 Peritoneal adhesions (postprocedural) (postinfection); Z79.899 Other long term (current) drug therapy
CPT/HCPCS: 36415; 80048; 85025; 86850; 86900; 86901; 88305; 88307; 93005; J0131; J1100; J1644; J2003; J2371; J2405; J2704; J2795; J3010; J7120

== ENCOUNTER → 2024-08-17 07:47 | Outpatient (BNV) | payer OTHER, SELFPAY | PROVIDERS: Admitting Provider Surgery; PCP Internal Medicine Geriatric Medicine; Visit Provider Surgery | DX: K57.90 Diverticulosis of intestine, part unspecified, without perforation or abscess without bleeding (principal) | CPT/HCPCS: 99024; 99499 ==

== ENCOUNTER 2024-08-30 09:58 | Outpatient (AMB) | payer OTHER, SELFPAY ==
--- NOTE | 2024-08-30 10:17 | A.OFFVIS_ITS ---
Vital Signs 08/30/24 10:26 Height 4 ft 11 in Weight 147 lb BMI 29.7 BP 149/67 H Blood Pressure Location Lt brachial Position Sitting Pulse 94 Intake Visit Reasons: S/P sigmoid resection Intake Note: Patient is seen in office for post op visit post laparoscopic sigmoid resection. Pt c/o: admits sore, bruise and tender, samson and dry and clear surgery:08/17/24 Workday Financials Consultant Required: No Accompanied by: Family/Other Allergies No Known Allergies Allergy (Verified 08/30/24 10:26) HPI HPI S/P sigmoid resection: Details: She had undergone hand assisted laparoscopic sigmoid resection last 08/17/2024. She tolerated procedure well. She was discharged on postop day 3. She says she is doing well at home. She has a good oral intake. She has good bowel movement. [facility] Medical History Fatty liver Snores Breast mass, right Diverticular disease Hospital discharge follow-up Acute diverticulitis Hypertension Syncope and collapse Tendonitis Arthritis Right knee pain Left hand pain Surgical History History of colon resection (08/17/24) Hx of right breast biopsy (06/23/24) Hx of hysterectomy Hx of hemorrhoidectomy Hx of colonoscopy History of hand surgery Status post hardware removal Family History Mother Alzheimer disease Hypertension Dementia Father Hypertension Social History Household Members: Spouse Housing: House Are you a primary childcare center director to a significant other at home: No Do you presently have visiting nurse or other home services: Yes Alcohol intake: never Comment: pt refused bed alarm Patient Tobacco Use Status: Never used Tobacco e-Cigarette/Vaping Use: Never Used service: No Current occupational status: retired Current occupation: rt handed Review of Systems Const Denies chills and Denies fever(s) Card Denies chest pain GI Denies diarrhea and Denies vomiting Physical Exam Vital Signs: Last Vital Signs Pulse 94 08/30/24 10:26 BP 149/67 H 08/30/24 10:26 BMI result Body Mass Index 29.7 Const General: comfortable and no acute distress Resp Effort & Inspection: normal respiratory effort Cardio Rate: regular rate GI Other: All incisions well healed, samson intact, mild incisional tenderness Palpation (GI): Soft to palpation, not firm and no guarding Assessment & Plan Assessment & Plan (1) S/P colon resection: Comment: Hand assisted laparoscopic sigmoid resection, mobilization of the splenic flexure, end-to-end anastomosis, extensive lysis of adhesions; intraop flexible sigmoidoscopy. Code(s): Z90.49 - Acquired absence of other specified parts of digestive tract Category: Surgical Plan: She had sigmoid resection for recurrent diverticulitis. She is doing very well. All incisions are well healed. I removed her skin samson. She does not have any incisional hernias I advised her to avoid lifting anything more than 20 lb for another month. I will see her therefore in the office again next month. Overall, she is doing very well. Her path report confirms diverticular disease Her daughter was with her during the visit. Coding Level of Care Code Global (21230) Diagnoses S/P colon resection Z90.49
[2024-08-30 10:26] VITALS: BP 149/67; PULSE 94; BMI 29.7
--- OUTSIDE RECORDS SUMMARY | 2024-08-30 11:13 | XMS_ITS | Encounter Summary ---
Author Organization [employer] Address [address] [facility] 7t [place] [address] Care Team Providers Care Optical Worker Name Role Phone Name, Martín MARKS Primary Care Provider [phone] Encounter Details Date Type Department Care Team ([facility] st Contact Info) Description 03/07/2023 Orders Only [facility] MED & PEDS [address] [place], [place] [phone] Geno Malave LPN Social History Tobacco Use [...] Description 09/02/2024 2:00 PM EDT Office Visit [facility] ADULT DENTAL [address] [place] [address] Erica, Kasia [address] [place] [address] 11/03/2024 3:45 PM EDT Office Visit [facility] MEDICINE [address] [place] [address] Name, MD Martín [address] [place] [address] documented as of this encounter Procedures Procedure Name Priority Date/Time Associated Diagnosis Comments BI MAMMOGRAM SCREENING TOMOSYNTHESIS BILATERAL Routine 03/11/2023 2:45 PM EDT documented in this encounter Results * BI Mammogram Screening Tomosynthesis Bilateral (03/11/2023 2:45 PM EDT) Anatomical Region Laterality Modality Breast Bilateral Mammography 03/11/2023 2:45 PM EDT Narrative 03/29/2023 1:32 PM EST ? [facility] [place] ? [address] [facility] [address] ?[place] [address] ? Mammography Report ? Signed ? Patient: Raimundo Abdalla,Eduarda ?MR ?? #: [id number] ? : 1950 ?Acct:[id number] ? Age/Sex: 72 / F ?ADM Date: 10/24/23 ? Loc: HO.MAMMO ? Attending : Martín Pittman MD ? Ordering Physician: Toya,Martín MARKS ?Results: 1Negative ? Date of Service: 03/11/23 ?Follow Up: 1 Year From Orig ?? inal Mammogram ? Procedure(s): MM tomosynthesis screening BI ?? Accession Number(s): [id number] ? cc: Toya,Martín MARKS ? EXAMINATION: ?? [...] ? DD/DT: 03/11/ 1445 ? TD/TT: ? Dementia Program Director: ? Procedure Note Donotuseinterpreter, Image - 03/29/2023 [facility] [address] [place] [address] Mammography Report Signed Patient: Wendie Faye MMR #: [id number] : 3Acct:[id number] Age/Sex: 72 / FADM Date: 03/11/23 Loc: HO.MAMMO Attending Dr: Martín Pittman MD Ordering Physician: Martín Pittman MDResults: 1Negative Date of Service: 03/11/23Follow Up: 1 Year From Orig inal Mammogram Procedure(s): MM tomosynthesis screening BI Accession Number(s): [id number] cc: Martín Pittman MD EXAMINATION: MM SCREENING [...] in OV> 03/29/23 1329 DD/ 1445 TD/TT: Dementia Program Director: Martín Pittman MD IMG BI PROCEDURES Edited Result - Final documented in this encounter Visit Diagnoses Not on filedocumented in this encounter Care Teams Optical Worker Relationship Specialty Start Date End Date Name, MD Martín [address] [place] [address] PCP - General Family Medicine 07/18/15 documented as of this encounter
--- OUTSIDE RECORDS SUMMARY | 2024-08-30 11:13 | XMS_ITS | Encounter Summary ---
Author Organization [employer] Address [address] [facility] 7[address] [place] [address] Care Team Providers Care Flange Turner Name Role Phone Name, Martín MARKS Primary Care Provider [phone] Reason for Visit * Reason Onset Date Comments Med Refill 07/22/2023 Encounter Details Date Type Department Care Team ([facility] st Contact Info) Description 07/22/[address] [facility] MEDICINE [address] [place], [place] [phone] Name, MD Martín [address] [place] [address] Med Refill Social History Tobacco Use Types [...] 10 MG tablet To be sent to: [facility]/pharmacy #[id number] [place] [address] documented in this encounter Plan of Treatment Upcoming Encounters Date Type Department Care Team (Late st Contact Info) Description 09/02/2024 2:00 PM EDT Office Visit [facility] ADULT DENTAL [address] [place] [address] Erica, Kasia [address] [place] [address] 11/03/2024 3:45 PM EDT Office Visit [facility] MEDICINE [address] [place] [address] Name, MD Martín [address] [place] [address] documented as of this encounter Visit Diagnoses Not on filedocumented in this encounter Care Teams Flange Turner Relationship Specialty Start Date End Date Name, MD Martín [address] [place] [address] PCP - General Family Medicine 07/18/15 documented as of this encounter
--- OUTSIDE RECORDS SUMMARY | 2024-08-30 11:13 | XMS_ITS | Encounter Summary ---
Author Organization [employer] Address [address] [facility] 7t [place] [address] Care Team Providers Care Tower Erector Helper Name Role Phone Name, Martín MARKS Primary Care Provider [phone] Encounter Details Date Type Department Care Team ([facility] st Contact Info) Description 03/25/2023 Orders Only [facility] MEDICINE [address] [place], [place] [phone] Name, MD Martín [address] [place] [address] Social History Tobacco Use Types Packs/Day Years [...] 09/02/2024 2:00 PM EDT Office Visit [facility] ADULT DENTAL [address] [place] [address] Erica, Kasia [address] [place] [address] 11/03/2024 3:45 PM EDT Office Visit [facility] MEDICINE [address] [place] [address] Name, MD Martín [address] [place] [address] documented as of this encounter Visit Diagnoses Not on filedocumented in this encounter Care Teams Tower Erector Helper Relationship Specialty Start Date End Date Name, MD Martín [address] [place] [address] PCP - General Family Medicine 07/18/15 documented as of this encounter
--- OUTSIDE RECORDS SUMMARY | 2024-08-30 11:13 | XMS_ITS | Encounter Summary ---
Author Organization [facility] Address [address] [facility] 7t [place] [address] Care Team Providers Care Progressive Care Unit Registered Nurse Name Role Phone Name, Martín MARKS Primary Care Provider [phone] Encounter Details Date Type Department Care Team (Latest Contact Info) Description 07/26/[address] [facility] CONVERSIONS Dental, Provider, DDS Social History [...] 09/02/2024 2:00 PM EDT Office Visit [facility] ADULT DENTAL [address] [place] [address] Erica Kasia [address] [place] [address] 11/03/2024 3:45 PM EDT Office Visit [facility] MEDICINE [address] [place] [address] NameMartín MD [address] [place] [address] documented as of this encounter Visit Diagnoses Not on filedocumented in this encounter Care Teams Progressive Care Unit Registered Nurse Relationship Specialty Start Date End Date Martín Pittman MD [address] [place] [address] PCP - General Family Medicine 07/18/15 documented as of this encounter
--- OUTSIDE RECORDS SUMMARY | 2024-08-30 11:13 | XMS_ITS | Encounter Summary ---
Author Organization [employer] Address [address] [facility] 7t [place] [address] Care Team Providers Care Health And Safety Director Name Role Phone Name, Martín MARKS Primary Care Provider [phone] Reason for Visit * Reason Onset Date Comments Call Back Request 07/11/2023 Encounter Details Date Type Department Care Team ([facility] st Contact Info) Description 07/11/2023 Telephone [facility] MEDICINE [address] [place], [place] [phone] Name, MD Martín [address] [place] [address] Call Back Request Social History Tobacco Use [...] T/C to pt. For below message through [place] - [id number], pt. States she has already apt. For CT scan, pt. Is all set right now. Advised to give call to [facility] if any question or concerns. * Telephone Encounter - Sharon Langford - 07/11/2023 11:45 AM EST Tc from pt requesting order for ct scan on left hand stated talk with PCP about this please contactpt for clarifications. documented in this encounter Plan of Treatment Upcoming Encounters Date Type Department Care Team ([facility] st Contact Info) Description 09/02/2024 2:00 PM EDT Office Visit [facility] ADULT DENTAL [address] [place] [address] Erica Kasia [address] [place] [address] 11/03/2024 3:45 PM EDT Office Visit [facility] MEDICINE [address] [place] [address] NameMartín MD [address] [place] [address] documented as of this encounter Visit Diagnoses Not on filedocumented in this encounter Care Teams Health And Safety Director Relationship Specialty Start Date End Date NameMartín MD [address] [place] [address] PCP - General Family Medicine 07/18/15 documented as of this encounter
--- OUTSIDE RECORDS SUMMARY | 2024-08-30 11:13 | XMS_ITS | Encounter Summary ---
Author Organization [employer] Address [address] [facility] 7t [place] [address] Care Team Providers Care Jet Dyeing Machine Tender Name Role Phone Name, Martín MARKS Primary Care Provider [phone] Reason for Visit * Reason Onset Date Comments Prior Auth Prescription 08/27/2024 Encounter Details Date Type Department Care Team ([facility] st Contact Info) Description 08/27/2024 Telephone [facility] MEDICINE [address] [place], [place] [phone] Name, MD Martín [address] [place] [address] Prior Auth Prescription Social History Tobacco Use Types Packs/Day Years [...] encounter Miscellaneous Notes * Telephone Encounter - Kamryn Trimble - 08/27/2024 11:39 AM EDT PA Denial received 08/26/2023 and scanned into media. Also received fax from [employer] with additional questions regarding [place] [facility]. documented in this encounter Plan of Treatment Upcoming Encounters Date Type Department Care Team (Late st Contact Info) Description 09/02/2024 2:00 PM EDT Office Visit [facility] ADULT DENTAL [address] [place] [address] Erica, Kasia [address] [place] [address] 11/03/2024 3:45 PM EDT Office Visit [facility] MEDICINE [address] [place] [address] Name, MD Martín [address] [place] [address] documented as of this encounter Visit Diagnoses Not on filedocumented in this encounter Additional Health Concerns Assessment Noted Time PHQ-9 Depression Total Score: 22 024 11:54 AM EST documented as of this encounter Care Teams Jet Dyeing Machine Tender Relationship Specialty Start Date End Date NameMartín MD [address] [place] [address] PCP - General Family Medicine 07/18/15 documented as of this encounter
--- OUTSIDE RECORDS SUMMARY | 2024-08-30 11:13 | XMS_ITS | Encounter Summary ---
Author Organization [employer] Address [address] [facility] 7t [place] [address] Care Team Providers Care Crop Adjuster Name Role Phone Name, Martín MARKS Primary Care Provider [phone] Reason for Visit * Reason Onset Date Comments Medication Question 08/24/2024 Encounter Details Date Type Department Care Team ([facility] st Contact Info) Description 08/24/2024 Telephone [facility] MEDICINE [address] [place], [place] [phone] Name, MD Martín [address] [place] [address] Medication Question Social History Tobacco Use Types Packs/Day Years [...] Telephone Encounter - Kamryn Trimble - 08/27/2024 3:07 PM EDT Fax received from [facility] with follow up questions for PA/Ambien. Form placed on pcp desk for completion. * Telephone Encounter - Lupe Cosme RN - 08/27/2024 2:13 PM EDT T/C to pt via S Articulation Officer Rahul #[id number]. Advised pt no forms noted from pt's insurance re: Ambien. Pt states she is extremely frustrated about ambien rx and has not slept in two weeks increasing her anxiety. States she does not want any other medication to help her sleep. Pt declines to come [facility] for evaluation stating she is not able to walk well. Pt asking for rx to be sent to [facility]. Advised of rx sent 08/20/24. Pt states [facility] advised her rx was sent with qty 90. Advised pt rx was sent with qty 30 and fill was prohibited due to insurance regulations. Advised RN will call [facility] again. T/C to [facility]. Alana states pt may have been confused about instructions. States pt's insurance will not payfor more than 90 tabs in 365 days and rx is not fillable until 2025 without a prior authorization. Advised will forward request to PCP. * Telephone Encounter - Jillian Mendoza - 08/27/2024 11:17 AM EDT Tc from pt returning call regarding status on last message. * Telephone Encounter - Elle Delacruz RN - 08/25/2024 10:50 AM EDT Tc to pt to let them know per [facility] reports pt insurance will only cover a 90 da supply of Ambien for 365 days. Pt has reached that limitation and insurance will not cover until 05/21/25 . Pt reports they spoke with their pharmacy who reports that they should be able to product picker their medication each month. Reiterated to pt what we were told by pharmacy and pt stated that their insurance has faxed ov er paperwork or the PCP to fill out. Advised pt we have not received anything on our end but if we do we will look into it. Pt expressed understanding and no furtehr questions or concerns at this time. * Telephone Encounter - Jillian Mendoza - 08/25/2024 9:16 AM EDT Tc from pt requesting status on medication. Informs has called her pharmacy and they still cover the 30 day supply. Please call pt to clarify. * Telephone Encounter - Elle Delacruz RN - 08/24/2024 2:36 PM EDT Tc to pt in regards Ambien medication/ Pt reports they tried to product picker their medication at [facility] andthey reported they did not receive the script. Tc to [facility] who reports that's not what they said. [facility] will only cover a 90 da supply of Ambien for 365 days. Pt has reached that limitation and insurance will not cover until 05/21/25. [facility] reports either a PA can be done or an alternative medication will need to be ordered. Message forwarded to PCP. * Telephone Encounter - Jillian Mendoza - 08/24/2024 2:09 PM EDT Tc from pt returning call. * Telephone Encounter - Elle Delacruz RN - 08/24/2024 11:16 AM EDT Tc to pt via s id: [id number] requesting a call back in regards to Ambien medication. No answer, lvm to return call and ask to speak to blue team nurses. * Telephone Encounter - Reno Miles - 08/24/2024 10:51 AM EDT Tc from pt requesting a call back regarding med zolpidem (Ambien) 10 MG tablet. Contact pt at [phone] documented in this encounter Plan of Treatment Upcoming Encounters Date Type Department Care Team (Late st Contact Info) Description 09/02/2024 2:00 PM EDT Office Visit [facility] ADULT DENTAL [address] [place] [address] Erica, Kasia [address] [place] [address] 11/03/2024 3:45 PM EDT Office Visit [facility] MEDICINE [address] [place] [address] NameMartín MD [address] [place] [address] documented as of this encounter Visit Diagnoses Not on filedocumented in this encounter Additional Health Concerns Assessment Noted Time PHQ-9 Depression Total Score: 22 024 11:54 AM EST documented as of this encounter Care Teams Crop Adjuster Relationship Specialty Start Date End Date NameMartín MD [address] [place] [address] PCP - General Family Medicine 07/18/15 documented as of this encounter
--- OUTSIDE RECORDS SUMMARY | 2024-08-30 11:13 | XMS_ITS | Encounter Summary ---
Author Organization [employer] Address [address] [facility] 7t [place] [address] Care Team Providers Care General Dentist Name Role Phone Name, Martín MARKS Primary Care Provider [phone] Encounter Details Date Type Department Care Team (Late st Contact Info) Description 10/28/[address] [facility] MEDICINE [address] [place] [phone] Martín Pittman MD [address] [place] [phone] Social History Tobacco Use Types Packs/Day Years [...] PM EDT Office Visit [facility] ADULT DENTAL [address] [place] [address] [phone] Erica, Kasia [address] [place] [address] 11/03/2024 3:45 PM EDT Office Visit [facility] MEDICINE [address] [place] [phone] Martín Pittman MD [address] [place] [address] documented as of this encounter Visit Diagnoses Not on filedocumented in this encounter Care Teams General Dentist Relationship Specialty Start Date End Date Name, MD Martín [address] [place] [address] PCP - General Family Medicine 07/18/15 documented as of this encounter
--- OUTSIDE RECORDS SUMMARY | 2024-08-30 11:13 | XMS_ITS | Encounter Summary ---
Author Organization [facility] Address [address] [facility] 7t [place] [address] Care Team Providers Care Pump Oiler Name Role Phone Name, Martín MARKS Primary Care Provider [phone] Encounter Details Date Type Department Care Team (Latest Contact Info) Description 11/01/2021 Abstract [facility] CONVERSIONS Dental, Provider, DDS Social [...] Description 09/02/2024 2:00 PM EDT Office Visit [facility] ADULT DENTAL [address] [place] [phone] Erica Kasia [address] [place] [address] 11/03/2024 3:45 PM EDT Office Visit [facility] MEDICINE [address] [place] [address] Name, MD Martín [address] [place] [address] documented as of this encounter Visit Diagnoses Not on filedocumented in this encounter Care Teams Pump Oiler Relationship Specialty Start Date End Date NameMartín MD [address] [place] [address] PCP - General Family Medicine 07/18/15 documented as of this encounter
--- OUTSIDE RECORDS SUMMARY | 2024-08-30 11:13 | XMS_ITS | Encounter Summary ---
Author Organization [employer] Address [address] [facility] 7t [place] [address] Care Team Providers Care Leading Firefighter Name Role Phone Name, Martín MARKS Primary Care Provider [phone] Reason for Visit * Reason Comments Med Refill Encounter Details Date Type Department Care Team ([facility] st Contact Info) Description 01/21/2024 Refill [facility] MEDICINE [address] [place], [place] [phone] Name, MD Martín [address] [place] [address] Insomnia, unspecified type Social History Tobacco Use [...] Description 09/02/2024 2:00 PM EDT Office Visit [facility] ADULT DENTAL [address] [place] [address] Erica, Kasia [address] [place] [address] 11/03/2024 3:45 PM EDT Office Visit [facility] MEDICINE [address] [place] [address] NameMartín MD [address] [place] [address] documented as of this encounter Visit Diagnoses Diagnosis Insomnia, unspecified type documented in this encounter Additional Health Concerns Assessment Noted Time PHQ-9 Depression Total Score: 10 024 1:21 PM EDT documented as of this encounter Care Teams Leading Firefighter Relationship Specialty Start Date End Date NameMartín MD [address] [place] [address] PCP - General Family Medicine 07/18/15 documented as of this encounter
--- OUTSIDE RECORDS SUMMARY | 2024-08-30 11:13 | XMS_ITS | Encounter Summary ---
Author Organization [employer] Address [address] [facility] 7t [place] [address] Care Team Providers Care Senior Construction Manager Name Role Phone Name, Martín MARKS Primary Care Provider [phone] Reason for Visit * Reason Comments Med Refill Encounter Details Date Type Department Care Team ([facility] st Contact Info) Description 04/09/2023 Refill [facility] MEDICINE [address] [place], [place] [phone] Name, MD Martín [address] [place] [address] Social History Tobacco Use Types Packs/Day Years [...] 2:00 PM EDT Office Visit [facility] ADULT DENTAL [address] [place] [address] Erica, Kasia [address] [place] [address] 11/03/2024 3:45 PM EDT Office Visit [facility] MEDICINE [address] [place] [address] Name, MD Martín [address] [place] [address] documented as of this encounter Visit Diagnoses Not on filedocumented in this encounter Care Teams Senior Construction Manager Relationship Specialty Start Date End Date Name, MD Martín [address] [place] [phone] PCP - General Family Medicine 07/18/15 documented as of this encounter
--- OUTSIDE RECORDS SUMMARY | 2024-08-30 11:13 | XMS_ITS | Encounter Summary ---
Author Organization [employer] Address [address] [facility] 7t [place] [address] Care Team Providers Care Leather Tooler Name Role Phone Name, Martín MARKS Primary Care Provider [phone] Reason for Visit * Reason Comments Med Refill Encounter Details Date Type Department Care Team (Late st Contact Info) Description 09/25/2022 Refill [facility] MEDICINE [address] [place] [address] [phone] Name, MD Martín [address] [place] [phone] Insomnia, unspecified type Social History Tobacco Use [...] Description 09/02/2024 2:00 PM EDT Office Visit [facility] ADULT DENTAL [address] [place], [place] [phone] Erica, Kasia [address] [place] [address] 11/03/2024 3:45 PM EDT Office Visit [facility] MEDICINE [address] [place] [phone] Name, MD Martín [address] [place] [address] documented as of this encounter Visit Diagnoses Diagnosis Insomnia, unspecified type documented in this encounter Care Teams Leather Tooler Relationship Specialty Start Date End Date Name, MD Martín [address] [place] [address] PCP - General Family Medicine 07/18/15 documented as of this encounter
--- OUTSIDE RECORDS SUMMARY | 2024-08-30 11:13 | XMS_ITS | Encounter Summary ---
Author Organization [employer] Address [address] [facility] 7t [place] [address] Care Team Providers Care Molder Shoulder Pad Name Role Phone Name, Martín MARKS Primary Care Provider [phone] Reason for Visit * Reason Onset Date Comments Hospital Follow-up 04/12/2024 Encounter Details Date Type Department Care Team ([facility] st Contact Info) Description 04/12/2024 Telephone [facility] MEDICINE [address] [place], [place] [phone] Name, MD Martín [address] [place] [address] Hospital Follow-up Social History Tobacco Use Types [...] 04/12/24 Diagnosed: intestinal infection *Send message to Clarinda Clinical Care Coordinators documented in this encounter Plan of Treatment Upcoming Encounters Date Type Department Care Team (Late st Contact Info) Description 09/02/2024 2:00 PM EDT Office Visit [facility] ADULT DENTAL [address] [place] [phone] Erica, Kasia [address] [place] [address] 11/03/2024 3:45 PM EDT Office Visit [facility] MEDICINE [address] [place] [address] Name, MD Martín [address] [place] [address] documented as of this encounter Visit Diagnoses Not on filedocumented in this encounter Additional Health Concerns Assessment Noted Time PHQ-9 Depression Total Score: 22 024 11:54 AM EST documented as of this encounter Care Teams Molder Shoulder Pad Relationship Specialty Start Date End Date Name, MD Martín [address] [place] [phone] PCP - General Family Medicine 07/18/15 documented as of this encounter
--- OUTSIDE RECORDS SUMMARY | 2024-08-30 11:13 | XMS_ITS | Encounter Summary ---
Author Organization [employer] Address [address] [facility] 7t [place] [address] Care Team Providers Care Erosion Control Coordinator Name Role Phone Name, Martín MARKS Primary Care Provider [phone] Reason for Visit * Reason Onset Date Comments Med Refill 10/21/2022 Encounter Details Date Type Department Care Team ([facility] Contact Info) Description 10/21/2022 Refill [facility] MEDICINE [address] [place], [place] [phone] Name, MD Martín [address] [place] [address] Insomnia, unspecified type Social History Tobacco Use [...] Upcoming Encounters Date Type Department Care Team ([facility] Contact Info) Description 09/02/2024 2:00 PM EDT Office Visit [facility] ADULT DENTAL [address] [place] [address] Kasia Maldonado [address] [place] [address] 11/03/2024 3:45 PM EDT Office Visit [facility] MEDICINE [address] [place] [address] Name, MD Martín [address] [place] [address] documented as of this encounter Visit Diagnoses Diagnosis Insomnia, unspecified type documented in this encounter Care Teams Erosion Control Coordinator Relationship Specialty Start Date End Date Name, MD Martín [address] [place] [address] PCP - General Family Medicine 07/18/15 documented as of this encounter
--- OUTSIDE RECORDS SUMMARY | 2024-08-30 11:13 | XMS_ITS | Encounter Summary ---
Author Organization [facility] Address [address] [facility] 7t [place] [address] Care Team Providers Care Local Flatbed Driver Name Role Phone Name, Martín MARKS Primary Care Provider [phone] Encounter Details Date Type Department Care Team (Latest Contact Info) Description 11/06/2020 Abstract [facility] CONVERSIONS Dental, Provider, DDS Social History [...] 2:00 PM EDT Office Visit [facility] ADULT DENTAL [address] [place] [address] Erica Kasia [address] [place] [address] 11/03/2024 3:45 PM EDT Office Visit [facility] MEDICINE [address] [place] [address] Name, MD Martín [address] [place] [address] documented as of this encounter Visit Diagnoses Not on filedocumented in this encounter Care Teams Local Flatbed Driver Relationship Specialty Start Date End Date NameMartín MD [address] [place] [address] PCP - General Family Medicine 07/18/15 documented as of this encounter
--- OUTSIDE RECORDS SUMMARY | 2024-08-30 11:13 | XMS_ITS | Clinical Summary ---
Author Organization [employer] Address [address] [facility] 7t [place] [address] Care Team Providers Care Mime Artist Name Role Phone Name, Martín MARKS Primary Care Provider [phone] Allergies No known active allergies Medications atorvastatin [...] ORAL TODOS LOS D 08/12/19 24 Active amLODIPine (Norvasc) 5 MG tablet Take 1 tablet by mouth Once per day. Active amoxicillin-cla vulanate (Augmentin) 875-125 MG tablet [...] BEDTIME IF NEEDED FOR SLEEP 30 tablet 08/21/19 25 Active loratadine (Claritin) 10 MG tabletIndicatio ns:Allergic rhinitis, unspecified seasonality, unspecified trigger TOME 1 TABLETA POR VIA ORAL TODOS LOS BAIN EN LA MANANA 90 tablet 1 08/25/19 25 Active loratadine (Claritin) 10 MG tabletIndicatio ns:Allergic rhinitis, unspecified seasonality, unspecified trigger TAKE 1 TABLET BY MOUTH EVERY MORNING 90 tablet 1 11/21/19 24 025 Discontinued zolpidem (Ambien) 10 MG tabletIndicatio ns:Insomnia, unspecified type TAKE 1 TABLET BY MOUTH AT BEDTIME IF NEEDED FOR SLEEP 30 tablet 07/20/19 25 025 Discontinued(Re order (will not trigger notification to Pharmacy)) Active Problems Problem Noted Date Diagnosed Date Osteoarthritis of left shoulder 03/02/2024 Left hand pain 03/02/2024 Hospital discharge follow-up 03/02/2024 Overview (03/02/2024): [place] [facility]read[place] to x 1 day-biotics discharge p.o. antibiotics [...] Encounters Date Type Department Care Team Description 08/27/[address] [facility] [address] [place] [address] Martín Pittman MD Prior Auth Prescription 08/24/[address] [facility] [address] [place] [address] Matrín Pittman MD Medication Question 08/23/[address] [facility] [address] [place] [address] Martín Pittman MD Allergic rhinitis, unspecified seasonality, unspecified trigger 08/20/[address] [facility] [address] [place] [address] Martín Pittman MD Insomnia, unspecified type 07/20/[address] [facility] [address] [place] [address] Martín Pittman MD Durable Medical Equipment 07/19/2024 4:00 PM EST Office Visit [facility] [address] [place] [address] Martín Pittman MD Diverticulitis (Primary Dx); Flu vaccine refused; Primary osteoarthritis of right knee 07/19/[address] [facility] [address] [place] [address] Martín Pittman MD Insomnia, unspecified type 07/15/[address] [facility] [address] [place] [address] Martín Pittman MD chartprep 07/14/[address] [facility] [address] [place] [address] Martín Pittman MD ER Follow-up 06/23/2024 Orders Only [facility] External Provider, [facility] 06/21/[address] [facility] [address] [place] [address] Martín Pittman MD Insomnia, unspecified type from [...] Office Visit [facility] [address] [place] [address] Erica Kasia [address] [place] [address] 11/03/2024 3:45 PM EDT Office Visit [facility] [address] [place] [address] Name, MD Martín [address] [address] Health Maintenance Due Date Last Done Comments [...] 11/14/2022 SDOH Screening 09/14/2024 09/15/2023 Depression Monitoring 10/04/2024 04/06/2024, 024 Dental X-Ray: Full Mouth 11/07/2024 11/06/2021 Alcohol/Substance [...] TOMOSYNTHESIS RIGHT Routine 06/23/2024 9:00 AM EST HEPATITIS C ANTIBODY Routine 05/10/2024 [...] AM EST 06/23/2024 12:00 PM EST Narrative [facility] - 06/24/2024 12:21 PM EST ----- ------- Name: Wendie Faye ?Age/Sex: 73/F ? [facility] 1950 [id number] [id number] ?? Attend Dr: Tim Cifuentes MD ?Re06/23/24 ?Status: DEP REF ? Location: HO.MAMMO ?Disch: ? ----- ------- SPEC : [id number] ?RECD: 06/23/24 ? STATUS: ??SOUT ? REQ NUM: [id number] ? MADHAV: 06/23/24 ? SUBM DR: Reina [...] Copies To: ?? Tim Cifuentes MD ?? [facility] ?? [address] ?? [place] [address] ?? [phone] ?? Name,Martín MARKS ?? [address] [facility] ?? [place] [address] ?? [phone] ? CONTINUED ON NEXT PAGE ----- ------- Name: Wendie Faye ?Age/Sex: 73/F ? : 1950 Unit#: [id number] ?? Attend Dr: Tim Cifuentes MD ?Re06/23/24 ?Status: DEP REF ? Location: HO.MAMMO ?Disch: ? ----- ------- SPEC : [id number] ?RECD: 06/23/24-1200 ? STATUS: ??SOUT ? REQ NUM: [id number] ? MADHAV: 06/23/24-932 ? SUBM DR: Reina Rod DO ? ENTERED: ??06/23/24-6 ?SP TYPE: Surgical ? OTHR DR: Tim Cifuentes MD ?Name,Martín MARKS ORDERED: ??HE Stain/2, Gross Micro L4 ? COMMENTS: As per the specimen requisition slip the specimen is ?collected at 0933 and placed in formalin at 0940. Copies To: ??(Continued) ?? Reina Rod DO ?? [address] [place] [address] ?? [place] [address] ?? [phone] ----- ------- Signed (signature on file) Catia Joanna 06/24/24 1221 ? ----- ------- ? END OF REPORT ? us Generic External Data Provider LAB BLOOD ORDERAB LES Final Result Performing Organization Address [facility]/State/ZIP Co de Phone Number [facility] [address] [place] [address] [phone] * BREAST NDL CORE BIOPSY RT (06/23/2024 9:00 AM EST) Anatomical Region Laterality Modality Abdomen Ultrasound 06/23/2024 9:00 AM EST Narrative 06/23/2024 10:34 AM EST ? [facility] [place] ? [address] ?[place] [address] ? Ultrasound Report ? Signed with Addenda ? Patient: Raimundo Abdalla,Eduarda ?MR ?? #: [id number] ? : 1950 ?Acct:[id number] ? Age/Sex: 73 / F ?ADM Date: 06/23/24 ? Loc: HO.MAMMO ? Attending Dr: Tim Cifuentes MD ? Ordering Physician: Tim Cifuentes MD ?? Date of Service: 06/23/24 ?? Procedure(s): US breast ndl core biopsy RT ?? Accession Number(s): [id number] ? cc: Tim Cifuentes MD; Name,Martín MARKS [...] Signed By: ? <Electronically signed by Reina oRd, DO in OV> ? 06/25/24 1113 ?? [...] DD/ 0900 ? TD/TT: 06/23/24 0945 ? Round Kiln Drawer: ? Procedure Note Willow, Image - 06/25/2024 [place] [facility] [address] [place], [place] [address] Ultrasound Report Signed with Addenda Patient: Wendie Faye MMR #: [id number] : 1950cct:[id number] Age/Sex: 73 / FADM Date: 06/23/24 Loc: HO.MAMMO Attending Dr: Tim Cifuentes MD Ordering Physician: Tim Cifuentes MD Date of Service: 06/23/24 Procedure(s): US breast ndl core biopsy RT Accession Number(s): [id number] cc: Tim Cifuentes MD; Name,Martín MARKS ADDENDUM [...] 06/23/24 1030 DD/ 0900 TD/TT: 06/23/24 0945 Round Kiln Drawer: [facility] External Provider IMG US PROCEDURES Edited Result - Final * BI Mammogram Diagnostic Tomosynthesis Right (06/23/2024 9:00 AM EST) Anatomical Region Laterality Modality Breast Right Mammography 06/23/2024 9:00 AM EST Narrative 06/23/2024 10:34 AM EST ? [facility] [place] ? [address] ?[place] [address] ? Mammography Report ? Signed with Addenda ? Patient: Raimundo Abdalla,Eduarda ?MR ?? #: [id number] ? : 1950 ?Acct:[id number] ? Age/Sex: 73 / F ?ADM Date: 02/05/25 ? Loc: HO.MAMMO ? Attending Dr: Tim Cifuentes MD ? Ordering Physician: Tim Cifuentes MD ?Results: ? Date of Service: 06/23/24 ?Follow Up: ? Procedure(s): MM tomosynthesis diagnostic RT ?? Accession Number(s): [id number] ? cc: Tim Cifuentes MD; Martín Pittman [...] by Reina Tyminski, DO in OV> ? 06/23/24 1030 ? DD/ 0900 ? TD/TT: 06/23/24 0945 ? Round Kiln Drawer: ? Procedure Note Willow, Image - 07/02/2024 [facility] [address] [place] [address] [place] [address] Mammography Report Signed with Eric Patient: Wendie Faye MMR #: [id number] : 3Acct:[id number] Age/Sex: 73 / FADM Date: 06/23/24 Loc: RENÉ Attending Dr: Tim Cifuentes MD Ordering Physician: Tim Cifuentesesults: Date of Service: 06/23/24Follow Up: Procedure(s): MM tomosynthesis diagnostic RT Accession Number(s): [id number] cc: Tim Cifuentes MD; Name,Martín MARKS ADDENDUM [...] 06/23/24 1030 DD/ 0900 TD/TT: 06/23/24 0945 Round Kiln Drawer: [facility] External Provider IMG BI PROCEDURES Edited Result - Final * Hepatitis C Ab (05/10/2024 1:37 PM EST) Pathologist [facility] Hepatitis C Antibody Nonreactive Nonreactive [facility] Comment:Antibodies to HCV no t detected; does not exclude early acuteHCV infection. 05/10/2024 1:37 PM EST 05/10/2024 4:01 PM EST Generic External Data Provider LAB BLOOD ORDERAB LES Final Result [facility] [address] [place] [phone] * (ABNORMAL) Colonoscopy (08/12/2023) Pathologist [facility] Colonoscopy Abnormal(A ) Normal Martín Pittman MD HEALTH MAINTENANCE Final Result * (ABNORMAL) Lipid Panel, Standard (07/24/2022 9:07 AM EST) Cholesterol, Total 206(H) <200 mg/dL [facility] HDL Cholesterol 40(L) > OR = 50 mg/dL [facility] [place] [facility] Triglycerides 252(H) <150 mg/dL [facility] Comment: If a non-fasting specimen was collected, consider repeat triglyceride testing on a fasting specimen if clinically indicated. Arian et al. J. of Clin. Lipidol. 2015;9:129-169. LDL Cholesterol 127(H) mg/dL (calc) [facility] Comment: Reference range: <100 Desirable range <100 mg/dL for primary prevention; ?? <70 mg/dL for patients with CHD or diabetic patients with > or = 2 CHD risk factors. LDL-C is now calculated using the Amy calculation, which is a validated novel method providing better accuracy than the Friedewald equation in the estimation of LDL-C. James SS et al. SHREEE. 2013;310(19): 9411-3918 (http://education.[employer]/faq/YHM472) Chol/HDLC Ratio 5.2(H) <5.0 (calc) [facility] Non-HDL Cholesterol 166(H) <130 mg/dL (calc) [facility] Comment: For patients with diabetes plus 1 major ASCVD risk factor, treating to a non-HDL-C goal of <100 mg/dL (LDL-C of <70 mg/dL) is considered a therapeutic option. Blood Venous blood specimen / Unknown 07/24/2022 9:07 AM EST 07/24/2022 9:08 AM EST Narrative [facility] - 07/24/2022 9:39 PM EST FASTING:NO FASTING: NO Martín Pittman MD LAB BLOOD ORDERABLES Final Resul t [facility] [address] [place] [address] [facility] [place] [facility] [place] [address] [facility], ([address]) [place] [address] * Fecal immunochemical (07/15/2022) Fecal Immunoassay Test (External) Negative Stool Rectal contents / Unknown Historical Provider LAB BODY FLUIDS AND STOOL S ORDERABLES Final Result from Last 3 Months or Most Recently Relevant to Health Maintenance Insurance [address] [place] [address] [facility] - [facility] Care Teams Mime Artist Relationship Specialty Start Date End Date Name, MD Martín [address] [place], [place] PCP - General Family Medicine 07/18/15
--- OUTSIDE RECORDS SUMMARY | 2024-08-30 11:13 | XMS_ITS | Encounter Summary ---
Author Organization [employer] Address [address] [facility] [address] [place] [address] Care Team Providers Care Veterinarian Epidemiologist Name Role Phone Name, Martín MARKS Primary Care Provider [phone] Reason for Visit * Reason Comments Med Refill Encounter Details Date Type Department Care Team ([facility] st Contact Info) Description 05/24/2023 Refill [facility] [address] [place], [place] [phone] Name, MD Martín [address] [place] [address] Allergic rhinitis, unspecified seasonality, unspecified trigger Social [...] Description 09/02/2024 2:00 PM EDT Office Visit [facility] ADULT DENTAL [address] [place] [phone] EricaLongKasia [address] [place] [address] 11/03/2024 3:45 PM EDT Office Visit [facility] [address] [place] [phone] NameMartín MD [address] [place] [address] documented as of this encounter Visit Diagnoses Diagnosis Allergic rhinitis, unspecified seasonality, unspecified trigger documented in this encounter Care Teams Veterinarian Epidemiologist Relationship Specialty Start Date End Date Martín Pittman MD [address] [place] [address] PCP - General Family Medicine 07/18/15 documented as of this encounter
--- OUTSIDE RECORDS SUMMARY | 2024-08-30 11:13 | XMS_ITS | Encounter Summary ---
Author Organization [employer] Address [address] [facility] [address] [place] [address] Care Team Providers Care Rigger Up Name Role Phone Name, Martín MARKS Primary Care Provider [phone] Reason for Visit * Reason Comments Med Refill Encounter Details Date Type Department Care Team (Late st Contact Info) Description 07/26/2022 Refill [facility] [address] [place] [phone] Name, MD Martín [address] [place] [address] Insomnia, unspecified type Social History Tobacco Use [...] Description 09/02/2024 2:00 PM EDT Office Visit [facility] AD[facility] [address] [place], [place] [phone] Kasia Maldonado [address] [place] [address] 11/03/2024 3:45 PM EDT Office Visit [facility] [address] [place] [address] Name, MD Martín [place] [address] documented as of this encounter Visit Diagnoses Diagnosis Insomnia, unspecified type documented in this encounter Care Teams Rigger Up Relationship Specialty Start Date End Date Name, MD [place]ín [place] [address] PCP - General Family Medicine 07/18/15 documented as of this encounter
== END 2024-08-30 10:33 | disposition home or self-care (01) ==
LOC: HO.HGS 09:59
PROVIDERS: PCP Internal Medicine Geriatric Medicine; Visit Provider Surgery
DX: Z90.49 Acquired absence of other specified parts of digestive tract (principal)
CPT/HCPCS: 99024

== ENCOUNTER → 2024-08-30 09:58 | Outpatient (BNVA) | payer OTHER, SELFPAY | PROVIDERS: PCP Internal Medicine Geriatric Medicine; Visit Provider Surgery | DX: Z48.815 Encounter for surgical aftercare following surgery on the digestive system (principal); Z90.49 Acquired absence of other specified parts of digestive tract; Z98.890 Other specified postprocedural states | CPT/HCPCS: 99212 ==

== ENCOUNTER 2024-09-05 11:26 | Emergency (ER) | payer OTHER, SELFPAY ==
--- NOTE | ~2024-09-05 | US_ITS ---
CLINICAL HISTORY: inner groin pain, recent surgery Venous duplex ultrasound right lower extremity Comparison: CR - XR KNEE RT 4V - 09/05/24 12:09 EDT Findings: The visualized deep veins are fully compressible with normal Doppler color flow and spectral tracings. No popliteal cyst. IMPRESSION: 1. Negative for right lower extremity deep vein thrombosis. This document has been electronically signed by: Jonah Ying MD on 09/05/2024 13:45:50
--- NOTE | ~2024-09-05 | XR_ITS ---
CLINICAL HISTORY: pain 4 view right knee Comparison: US - US VENOUS DUPLEX LE RT - 09/05/24 12:32 EDT DX/PA - XR KNEE RT 3V - 07/15/24 14:29 EST Findings: Bony alignment is anatomic. No acute fracture. Minor osteophyte formation without significant joint space narrowing. No joint effusion. IMPRESSION: 1. No acute findings. This document has been electronically signed by: Jonah Ying MD on 09/05/2024 13:46:31
[2024-09-05 11:27] VITALS: BP 123/80; PULSE 90; RESP 16; TEMP 36.2; O2SAT 98; BMI 29.5
--- NOTE | 2024-09-05 11:28 | ED_ITS ---
HPI - Extremity Problem General Chief complaint: Extremity Injury, Lower Stated complaint: Knee and hip pain Time Seen by Provider: 09/05/24 11:40 Source: patient, family, RN notes reviewed and director nurses' registry Mode of arrival: ambulatory Limitations: language barrier History of Present Illness ED Provider: Suzanna Andrea PA-C HPI Narrative: This is a 88-hwrv-lwn-maltese speaking female, with a past medical history of HTN, osteoarthritis in BL knees, who presents to the ER with concerns for acute on chronic right knee pain. On July 15, she had a cortisone injection in the right knee. Patient reports that she has not had any relief since the injection. She reports that over the last several weeks her pain has worsened and now she is having pain starting from her right knee that extends into her right inner groin. She recently had a laparoscopic sigmoid resection on 08/17. She is not on anticoagulants. She was d/c on oxycodone which alleviated her pain in her knee but she no longer has this medication. She has been taking tylenol which has provided her with some relief. She denies any chest pain or shortness of breath. Pain in R knee worsens with palpitation, movement and with weight bearing. No other complaints or concerns at this time. MD Complaint: extremity pain Onset (ago): year(s) Pain Consistency: constant Location: right and knee Quality: aching Radiation: proximal Relieving factors: immobilization Exacerbating factors: range of motion, weight bearing, walking and palpation Associated symptoms: denies other symptoms Context: recent surgery/procedure Related Data Home Medications ?Medication ?Instructions ?Recorded ?Confirmed loratadine 10 mg tablet 10 mg PO DAILY PRN Allergy Symptoms 03/26/24 08/09/24 clonazepam 1 mg tablet 0.5 mg PO BEDTIME 08/09/24 08/09/24 pantoprazole 20 mg tablet,delayed 20 mg PO DAILY@0630 08/17/24 08/17/24 release Previous Rx's ?Medication ?Instructions ?Recorded docusate sodium 100 mg capsule 100 mg PO BID #30 caps 08/20/24 (Colace) oxycodone 5 mg tablet 5 mg PO Q4H PRN pain (scale score 08/20/24 7-10) #26 tabs losartan 25 mg tablet 25 mg PO DAILY #90 tabs 08/23/24 acetaminophen 650 mg 650 mg PO Q8H PRN pain #30 tabs 09/05/24 tablet,extended release (Tylenol 8 Hour) oxycodone 5 mg tablet 5 mg PO Q6H PRN severe pain (scale 09/05/24 score 7-10) #10 tabs Allergies Allergy/AdvReac Type Severity Reaction Status Date / Time No Known Allergies Allergy Verified 09/05/24 11:31 Review of Systems Review of Systems: Yes all other systems are reviewed and are negative Constitutional: Constitutional: Reports as per HPI, Denies body ache(s), Denies chills and Denies fever(s) Eyes: Eyes: Reports as per HPI, Denies change in vision and Denies eye discharge ENT: Reports system reviewed and no additional complaints, except as documented, Reports as per HPI, Reports Normal hearing present and Denies facial pain Cardiovascular: Cardiovascular: Reports as per HPI and Denies chest pain Respiratory: Respiratory: Reports as per HPI and Denies cough Gastrointestinal: Gastrointestinal: Reports as per HPI, Reports no additional gastrointestinal complaints, Denies abdominal pain, Denies diarrhea, Denies nausea and Denies vomiting Genitourinary: Genitourinary: Reports no additional female genitourinary complaints and Reports as per HPI Musculoskeletal: Musculoskeletal: Reports no additional musculoskeletal complaints, Reports as per HPI and Reports arthralgias Integumentary/Breasts: Skin/Breast: Reports system reviewed and no additional complaints, except as docu, Reports as per HPI, Denies erythema, Denies rash and Denies wounds Neurologic: Reports Normal hearing present Psychiatric: Psychiatric: Reports no additional psychiatric complaints and Reports as per HPI Endocrine: Endocrine: Reports no additional endocrine complaints and Reports as per HPI Hematologic/Lymphatic: Hematologic/Lymphatic: Reports no additional hematologic/lymphatic complaints and Reports as per HPI Allergic/Immunologic: Allergic/Immunologic: Reports no additional allergic/immunologic complaints and Reports as per HPI [facility] Past Medical History Medical History Fatty liver Snores Breast mass, right Diverticular disease Hospital discharge follow-up Acute diverticulitis Hypertension Syncope and collapse Tendonitis Arthritis Right knee pain Left hand pain Surgical History History of colon resection (08/17/24) Hx of right breast biopsy (06/23/24) Hx of hysterectomy Hx of hemorrhoidectomy Hx of colonoscopy History of hand surgery Status post hardware removal Family History Family History Mother Alzheimer disease Hypertension Dementia Father Hypertension Social History Social History Household Members: Spouse Housing: House Are you a primary healthcare corporate account director to a significant other at home: No Do you presently have visiting nurse or other home services: Yes Alcohol intake: never Comment: pt refused bed alarm Patient Tobacco Use Status: Never used Tobacco Smoked in Last 30 Days: No e-Cigarette/Vaping Use: Never Used Use of substances other than those prescribed or required for medical reasons: No Advance Directives: No Advance Directives Information Provided: Yes Do you have a plan to hurt others: No Plan service: No Current occupational status: retired Current occupation: rt handed Physical Exam Vital Signs: Vital Signs: Last Vital Signs Temp 97.2 F 09/05/24 11:27 Pulse 73 09/05/24 12:18 Resp 18 09/05/24 12:18 BP 126/77 09/05/24 12:18 Pulse Ox 97 09/05/24 12:18 O2 Del Method Room Air 09/05/24 12:18 BMI result Body Mass Index 29.5 Const: General: cooperative, comfortable and no acute distress Orientation/consciousness: patient oriented x3 Limitations: no limitations HEENT: Head: Yes normal to inspection, Yes normocephalic and Yes atraumatic Ears: hearing grossly normal bilaterally General nose exam: Normal external nose present Face and sinus: Yes normal facial exam Mouth: Normal oral and palatal mucosa present, oropharynx normal and moist mucous membranes Throat: Yes posterior oropharynx normal Eyes: General: appearance normal, both eyes and all related structures Eyelids: Yes eyelids normal Conjunctivae: conjunctivae normal Sclerae: sclerae normal Pupils: Equal, round and reactive pupils present EOM: EOMs intact bilaterally Neck: Neck: Yes normal visual inspection, Yes full ROM and Yes no lymphadenopathy Lymphatic: no lymphadenopathy noted Chest: Chest palpation & inspection: normal inspection of the chest Resp: Effort & Inspection: normal respiratory effort and able to speak in complete sentences Cardio: Rate: regular rate Rhythm: regular rhythm Heart sounds: S1 normal heart sound present and S2 normal heart sound present GI: Inspection: Yes normal to inspection Skin: General skin exam: no rashes or lesions noted Trauma: no lacerations or abrasions Wounds: no wounds Neuro: General: patient oriented x3 and moves all extremities Cranial nerves: Yes Equal, round and reactive pupils present and Yes Normal hearing present Extrem: Other: Right knee with no obvious bony deformity or swelling. She has good ROM with crepitus appreciated. Tenderness throughout knee joint. Pain with varus and valgus strain. No obvious joint laxity noted. Strong DP pulse. She has TTP within the right inner groin, no palpable chords noted. No calf tenderness. General: Yes normal to inspection Right upper extremity: normal to inspection Left upper extremity: normal to inspection Left lower extremity: normal to inspection Course Course Course Narrative: This is an RME performed by Suad Bass CNP: Additional HPI, ROS, PE not included below will be deferred to primary provider. Patient is a 73-year-old female who presents emergency department for evaluation of R knee and hip pain, known arthritis, prior injections with orth, has not followed up, has not taken any medications today. Tylenol has not been helping Plan: Awaiting bed assignment for analgesia Reevaluation(s) Reevaluation #1: US reviewed, no signs of DVT. Xray shows Minor osteophyte formation without significant joint space narrowing. Discussed with patient and at bedside. Will d/c on short rx for oxycodone and tylenol. Stressed the importance of f/u with ortho. Advised we are only allowed to rx a short supply of oxycodone and that we cannot refill this medication. She understands. Given return precautions. placed in modesto wrap for comfort. Stable for d/c. Medications Administered Discontinued Medications Generic Name Dose Route Start Last Admin Trade Name Juancarlos PRN Reason Stop Dose Admin Acetaminophen 650 mg 09/05/24 12:02 09/05/24 12:16 Acetaminophen 325 Mg Tablet PO 09/05/24 12:03 650 mg ONCE ONE Administration Oxycodone HCl 5 mg 09/05/24 12:02 09/05/24 12:16 Oxycodone Hcl Immed Release 5 Mg Tablet PO 09/05/24 12:03 5 mg ONCE ONE Administration Medical Decision Making Medical Decision Making [facility] Narrative: This is a 77-yimp-vcm-female, with a hx of OA in BL knees with recent cortisone injection on 07/15, here with concerns for acute on chronic right knee pain. On arrival, patient is well appearing, under no acute distress. R knee with no obvious bony deformity, swelling or erythema. She has good ROM. She does have TTP in the right thigh extending into the right inner groin without any palpable cords. She is here for pain management as her pain is not well controlled with tylenol. Recent colon resection 3 weeks ago. She is not on AC. She has no CP or SOB. DDX including acute on chronic knee pain, OA, knee sprain/strain, DVT. Less likely septic arthritis. Will obtain xrays, US to r/o DVT and medicate with tylenol and oxycodone. Will continue to monitor pending workup. Differential Diagnosis Differential Diagnoses: The differential diagnosis associated with the presentation includes See above Radiology Impression Discussion of test interpretation with radiology: I have reviewed the radiologist's reading. Radiologist Impression: CLINICAL HISTORY: pain 4 view right knee Comparison: US - US VENOUS DUPLEX LE RT - 09/05/24 12:32 EDT DX/HI - XR KNEE RT 3V - 07/15/24 14:29 EST Findings: Bony alignment is anatomic. No acute fracture. Minor osteophyte formation without significant joint space narrowing. No joint effusion. IMPRESSION: 1. No acute findings. This document has been electronically signed by: Jonah Ying MD on 09/05/2024 13:46:31 Dictated By: Jonah Ying MD CLINICAL HISTORY: inner groin pain, recent surgery Venous duplex ultrasound right lower extremity Comparison: CR - XR KNEE RT 4V - 09/05/24 12:09 EDT Findings: The visualized deep veins are fully compressible with normal Doppler color flow and spectral tracings. No popliteal cyst. IMPRESSION: 1. Negative for right lower extremity deep vein thrombosis. This document has been electronically signed by: Jonah Ying MD on 09/05/2024 13:45:50 Dictated By: Jonah Ying MD Discharge Plan Discharge Clinical Impression: Knee pain, chronic Qualifiers: Laterality: right Qualified Code(s): M25.561 - Pain in right knee Patient Disposition: Home, Self-Care Instructions: Chronic Pain (ED), Narcotic Safety (ED), Knee Pain (ED), Arthralgia (ED) Additional Instructions: You were seen in the ER due to knee pain. Your xray of your knee shows minor osteophyte formation without significant joint space narrowing - slight arthritis. Your US did not show any evidence of a blood clot. Your pain is likely due to arthritis/degenerative process. Resting, applying ice or heat, and gentle massage can help with your symptoms. You need to follow up with the crisis intervention specialist. Continue taking tylenol 650mg by mouth every 8 hours as needed for pain. If your pain persists and is severe even after you take the tylenol, take the oxycodone. Oxycodone is a narcotic, which is a very strong pain medication. Please be advised that this medication can be very addictive and cause adverse side effects including drowsiness/dizziness. Please only take as prescribed and do not drink or drive while taking this medication. We are only able to prescribe you several tablets of this medication and we cannot refill this from the emergency room. Please call the crisis intervention specialist on friday to schedule and appointment. If any new or worsening symptoms occur including but not limited to chest pain or shortness of breath, please seek emergent care. Prescriptions: New acetaminophen [Tylenol 8 Hour] 650 mg tablet extended release 650 mg PO Q8H PRN (Reason: pain) Qty: 30 0RF oxycodone 5 mg tablet 5 mg PO Q6H PRN (Reason: severe pain (scale score 7-10)) Qty: 10 0RF Rx Instructions: Partial Fill upon patient request. No Action losartan 25 mg tablet 25 mg PO DAILY Qty: 90 3RF clonazepam 1 mg Tablet 0.5 mg PO BEDTIME pantoprazole 20 mg tablet,delayed release (DR/EC) 20 mg PO DAILY@0630 docusate sodium [Colace] 100 mg capsule 100 mg PO BID Qty: 30 0RF oxycodone 5 mg tablet 5 mg PO Q4H PRN (Reason: pain (scale score 7-10)) Qty: 26 0RF Rx Instructions: Partial Fill upon patient request. loratadine 10 mg tablet 10 mg PO DAILY PRN (Reason: Allergy Symptoms) Referrals: [facility] [place] [facility] [Provider Group] Print Language: Georgian
[2024-09-05] MEDS: oxyCODONE HCl Immed Release 5 MG TABLET PO (12:16)
[2024-09-05] MEDS: Acetaminophen 325 MG TABLET 650 MG PO (12:16)
[2024-09-05 12:18] VITALS: BP 126/77; PULSE 73; RESP 18; O2SAT 97
--- OUTSIDE RECORDS SUMMARY | 2024-09-05 12:22 | XMS_ITS | Encounter Summary ---
Author Organization [employer] Address [address] [facility] [address] [place] [address] Care Team Providers Care Granite Worker Name Role Phone Name, Martín MARKS Primary Care Provider [phone] Encounter Details Date Type Department Care Team (Late Contact Info) Description 10/28/2022 Abstract [facility] MEDICINE [address] [place] [phone] NameMartín MD [address] [place] [phone] Social History Tobacco Use Types Packs/Day Years [...] Care Team (Late st Contact Info) Description 11/03/2024 3:45 PM EDT Office Visit [facility] MEDICINE [address] [place] [address] [phone] NameMartín MD [address] [place] [phone] 03/18/2025 10:00 AM EDT Office Visit [facility] ADULT DENTAL [address] [place] [phone] Kasia Maldonado [address] [place] [address] documented as of this encounter Visit Diagnoses Not on filedocumented in this encounter Care Teams Granite Worker Relationship Specialty Start Date End Date Name, MD Martín [address] [place] [address] PCP - General Family Medicine 07/18/15 documented as of this encounter
--- OUTSIDE RECORDS SUMMARY | 2024-09-05 12:22 | XMS_ITS | Encounter Summary ---
Author Organization [employer] Address [address] [facility] [address] [place] [address] Care Team Providers Care Articulation Officer Name Role Phone Name, Martín MARKS Primary Care Provider [phone] Reason for Visit * Reason Onset Date Comments transfer Patient 09/02/2024 Encounter Details Date Type Department Care Team ([facility] st Contact Info) Description 09/02/2024 Telephone [facility] MEDICINE [address] [place], [place] [phone] Name, MD Martín [address] [place] [address] transfer Patient Social History Tobacco Use Types Packs/Day Years [...] encounter Miscellaneous Notes * Telephone Encounter - Lenora Virk RN - 09/03/2024 4:08 PM EDT Call attempted to Patient to discuss Transfer request/ not being able to get needed medications. Noanswer, voicemail left requesting a return call. * Telephone Encounter - Naomi Mendez - 09/02/2024 2:55 PM EDT PT is requesting a PCP change stating that she is very upset that the DrRavi Is not giving her the medications that she is requesting. PT states that next time he will come and between men he and the DrRavi Will resolve this issue. documented in this encounter Plan of Treatment Upcoming Encounters Date Type Department Care Team (Late st Contact Info) Description 11/03/2024 3:45 PM EDT Office Visit [facility] MEDICINE [address] [place] [address] Name, MD Martín [address] [place] [address] 03/18/2025 10:00 AM EDT Office Visit [facility] ADULT DENTAL [address] [place] [address] Kasia Maldonado [address] [place] [address] documented as of this encounter Visit Diagnoses Not on filedocumented in this encounter Additional Health Concerns Assessment Noted Time PHQ-9 Depression Total Score: 22 024 11:54 AM EST documented as of this encounter Care Teams Articulation Officer Relationship Specialty Start Date End Date Name, MD Martín [address] [place] [address] PCP - General Family Medicine 07/18/15 documented as of this encounter
--- OUTSIDE RECORDS SUMMARY | 2024-09-05 12:22 | XMS_ITS | Encounter Summary ---
Author Organization [employer] Address [address] [facility] [address] [place] [address] Care Team Providers Care Academic Hospitalist Name Role Phone Name, Martín MARKS Primary Care Provider [phone] Reason for Visit * Reason Comments Med Refill Encounter Details Date Type Department Care Team ([facility] st Contact Info) Description 01/21/2024 Refill [facility] MEDICINE [address] [place], [place] [phone] Name, MD Martín [address] [place] [address] Insomnia, unspecified type Social History Tobacco Use [...] Description 11/03/2024 3:45 PM EDT Office Visit [facility] MEDICINE [address] [place] [address] NameMartín MD [address] [place] [address] 03/18/2025 10:00 AM EDT Office Visit [facility] ADULT DENTAL [address] [place] [address] Erica, Kasia [address] [place] [address] documented as of this encounter Visit Diagnoses Diagnosis Insomnia, unspecified type documented in this encounter Additional Health Concerns Assessment Noted Time PHQ-9 Depression Total Score: 10 024 1:21 PM EDT documented as of this encounter Care Teams Academic Hospitalist Relationship Specialty Start Date End Date Name, MD Martín [address] [place] [phone] PCP - General Family Medicine 07/18/15 documented as of this encounter
--- OUTSIDE RECORDS SUMMARY | 2024-09-05 12:22 | XMS_ITS | Encounter Summary ---
Author Organization [employer] Address [address] [facility] 7t [place] [address] Care Team Providers Care Chart Clerk Name Role Phone Name, Martín MARKS Primary Care Provider Reason for Visit * Reason Onset Date Comments Med Refill 07/22/2023 Encounter Details Date Type Department Care Team ([facility] st Contact Info) Description 07/22/2023 Telephone [facility] MEDICINE [address] [place], [place] [phone] Name, MD Martín [address] [place] [address] Med Refill Social History Tobacco Use Types [...] Miscellaneous Notes * Telephone Encounter - Geno Maalve LPN - 07/22/2023 11:10 AM EST Medication pended to PCP. * Telephone Encounter - Jillian Mendoza - 07/22/2023 11:07 AM EST TC from pt requesting medication refill. Medications needing refill : zolpidem (Ambien) 10 MG tablet To be sent to: [facility]/pharmacy #[id number] [place] [address] documented in this encounter Plan of Treatment Upcoming Encounters Date Type Department Care Team (Late st Contact Info) Description 11/03/2024 3:45 PM EDT Office Visit [facility] MEDICINE [address] [place] [address] Name, MD Martín [address] [place] [address] 03/18/2025 10:00 AM EDT Office Visit [facility] ADULT DENTAL [address] [place] [address] Kasia Maldonado [address] [place] [address] documented as of this encounter Visit Diagnoses Not on filedocumented in this encounter Care Teams Chart Clerk Relationship Specialty Start Date End Date Name, MD Martín [address] [place] [address] PCP - General Family Medicine 07/18/15 documented as of this encounter
--- OUTSIDE RECORDS SUMMARY | 2024-09-05 12:22 | XMS_ITS | Encounter Summary ---
Author Organization [employer] Address 75 [facility] 7t [place] [address] Care Team Providers Care Artificial Marble Worker Name Role Phone Name, Martín MARKS Primary Care Provider [phone] Reason for Visit * Reason Comments Routine Cleaning Dental Exam x-rays Perio chart Encounter Details Date Type Department Care Team (Late st Contact Info) Description 09/02/2024 2:00 PM EDT Office Visit [facility] ADULT DENTAL [address] [place], [place] [phone] Erica, Kasia [address] [place] [address] Dental plaque (Primary Dx); Localized gingival recession, minimal; Missing teeth, acquired Social History Tobacco Use Types Packs/Day Years [...] Sign Reading Time Taken Comments Blood Pressure 128/80 09/02/2024 1:52 PM EDT Pulse - - Temperature - - Respiratory Rate - - Oxygen Saturation - - Inhaled Oxygen Concentration - - Weight - - Height - - Body Mass Index - - documented in this encounter Progress Notes * Kasia Maldonado - 09/02/2024 2:00 PM EDT Appoint at 1 pm for P. Exam, X-rays, Prophy, fluoride, Perio chart Patient ID: Wendie Abdalla is a 73 y.o. female. Time Out: Timeout Date: 09/02/24, Timeout Time: 1355 (P. exam, prophy perio chart, x-rays) Location: [facility] Tooth: Maxilla and Mandible Procedure: Exam, X-rays, Prophylaxis, and Perio chart Verified the above with patient, golf course assistant, and provider. Confirmed via patient's chart, intraorally and by radiographs. Intelligence Intern: not applicable Medical Hx: Vitals: Blood pressure 128/80. Medications, Med Hx reviewed with patient and updated in chart. Pt reports an intestinal surgery, due to diverticulitis, but does not know the name of the surgery. Treatment Provided Dental procedures in this visit D1110 - PROPHYLAXIS - ADULT (Completed) Service provider: Kasia Maldonado Billdrake provider: Toni Pappas DDS D1206 - TOPICAL APPLICATION OF FLUORIDE VARNISH (Completed) Service provider: Kasia Maldonado Billdrake provider: Toni Pappas DDS D1330 - ORAL HYGIENE INSTRUCTIONS (Completed) Service provider: Kasia Maldonado Billing provider: Toni Pappas DDS D9450 - CASE PRESENTATION, DETAILED AND EXTENSIVE TREATMENT PLANNING (Completed) Service provider: Kasia Maldonado Billing provider: Toni Pappas DDS D0274 - BITEWINGS - 4 RADIOGRAPHIC IMAGES (Completed) Service provider: Kasia Maldonado Billing provider: Toni Pappas DDS D0220 - INTRAORAL - PERIAPICAL FIRST RADIOGRAPHIC IMAGE 8,9 (Completed) Service provider: Kasia Maldonado Billing provider: Toni Pappas DDS D0230 - INTRAORAL - PERIAPICAL EACH ADDITIONAL RADIOGRAPHIC IMAGE 24,25 (Completed) Service provider: Kasia Maldonado Billdrake provider: Toni Pappas DDS Instruments Used: Ultrasonic Scalers and Prophy angle Fluoride: 5% NaF varnish applied and POI given Oral Cancer Screening: cryptic tonsils, a fissure in the middle of tongue. Head/Neck Exam: No Lesions Calculus: None Plaque: Light Stain: Light Bleeding: trace Gingiva: Recession- localized and pink OH: Good Perio Chart: Completed Oral hygiene instructions provided to patient including brushing technique and flossing. Recommendations: Wells Tannery two times daily, modified muhammad technique, Floss daily, Electric toothbrush, Soft bristle toothbrush, Wells Tannery Tongue, Anti-sensitivity toothpaste Recall Frequency: 6 mo NV: prophy in 6 months Hygienist: Kasia Maldonado RDH * Toni Pappas DDS - 09/02/2024 2:00 PM EDT Dental procedures in this visit D1110 - PROPHYLAXIS - ADULT (Completed) Service provider: Kasia Maldonado Billdrake provider: Toni Pappas DDS D1206 - TOPICAL APPLICATION OF FLUORIDE VARNISH (Completed) Service provider: Kasia Maldonado Billdrake provider: Toni Pappas DDS D1330 - ORAL HYGIENE INSTRUCTIONS (Completed) Service provider: Kasia Maldonado Billdrake provider: Toni Pappas DDS D9450 - CASE PRESENTATION, DETAILED AND EXTENSIVE TREATMENT PLANNING (Completed) Service provider: Kasia Maldonado Billdrake provider: Toni Pappas DDS D0274 - BITEWINGS - 4 RADIOGRAPHIC IMAGES (Completed) Service provider: Kasia Maldonado Billing provider: Toni Pappas DDS D0220 - INTRAORAL - PERIAPICAL FIRST RADIOGRAPHIC IMAGE 8,9 (Completed) Service provider: Kasia Maldonado Billdrake provider: Toni Pappas DDS D0230 - INTRAORAL - PERIAPICAL EACH ADDITIONAL RADIOGRAPHIC IMAGE 24,25 (Completed) Service provider: Kasia Maldonado Billdrake provider: Toni Pappas DDS D0120 - PERIODIC ORAL EVALUATION - ESTABLISHED PATIENT (Completed) Service provider: Toni Pappas DDS Billing provider: Toni Pappas DDS Patient ID: Wendie Abdalla is a 73 y.o. female. Time Out: Timeout Date: 09/02/24, Timeout Time: 1355 (P. exam, prophy perio chart, x-rays) Location: [facility] Tooth: Maxilla and Mandible Procedure: Exam, X-rays, and Prophylaxis Verified the above with patient, golf course assistant, and provider. Confirmed via patient's chart, intraorally and by radiographs. Intelligence Intern: not applicable Chief Complaint Patient presents with Routine Cleaning Dental Exam x-rays Perio chart Medical Hx: Vitals: Blood pressure 128/80. Past Medical History: Diagnosis Date Anxiety Arthritis Asthma Hypertension Medications: Outpatient Encounter Medications as of 09/02/2024 Medication Sig Dispense Refill albuterol (Ventolin HFA) 108 (90 Base) MCG/ACT inhaler INHALE 2 PUFFS EVERY 6 HOURS IF NEEDED FOR WHEEZING. 18 g 2 amLODIPine (Norvasc) 5 MG tablet Take 1 tablet by mouth Once per day. amoxicillin-clavulanate (Augmentin) 875-125 MG tablet TAKE 1 TABLET EVERY 8 HOURS BY ORAL ROUTE, FOR 10 DAYS. atorvastatin (Lipitor) 20 MG tablet Take 20 mg by mouth in the morning. (Patient not taking: Reported on 04/19/2024) budesonide (Pulmicort) 0.5 MG/2ML nebulizer solution USE 1 VIAL VIA NEBULIZER EVERY DAY 180 mL 3 Calcium Carb-Cholecalciferol 500-10 MG-MCG tablet Take 1 tablet by mouth 2 times daily. cholecalciferol (Vitamin D-3) 50 MCG (2000 UT) tablet Take 1 tablet by mouth 1 (one) time each day. cyanocobalamin (Vitamin B-12) 1000 MCG tablet Take 1 tablet by mouth in the morning. dicyclomine (Bentyl) 10 MG capsule TAKE 1 CAPSULE 3 TIMES A DAY BY ORAL ROUTE, FOR NEEDED FOR ABDOMINAL CRAMPING. doxepin (Silenor) 3 MG tablet Take 1 tablet (3 mg) by mouth at bedtime. 30 tablet 0 loratadine (Claritin) 10 MG tablet TOME 1 TABLETA POR VIA ORAL TODOS LOS BAIN EN LA MANANA 90 tablet 1 losartan (Cozaar) 25 MG tablet TOME ELISE TABLETA POR V A ORAL TODOS LOS D methocarbamol (Robaxin) 750 MG tablet Take 1 tablet (750 mg) by mouth 3 times daily for 10 days. 30tablet 0 omeprazole (PriLOSEC) [address] capsule TOME 1 C PSULA POR V A ORAL TODOS LOS D zolpidem (Ambien) 10 MG tablet TAKE 1 TABLET BY MOUTH AT BEDTIME IF NEEDED FOR SLEEP 30 tablet 0 No facility-administered encounter medications on file as of 09/02/2024. Objective HPI Asymptomatic Head and Neck Exam: Lymph Nodes, Lips, Palate, Buccal Mucosa, Floor of Mouth, Tongue, Tonsils, Alveolar Ridges, Oropharynx, Salivary Ducts, and Vestibules normal appearance Details: Skin WNL OCS: negative Dental Exam As charted Plaque Calculus Gingival recession Reference tooth chart for additional findings. Oral Cancer Risk: Low Risk Oral Hygiene Instructions: Wells Tannery two times daily, modified muhammad technique, Floss daily, Electric toothbrush, Soft bristle toothbrush, Wells Tannery Tongue Caries Risk Assessment: Low- no risk factor no new carious lesion noticed. Assessment/Plan CHARISSA X rays Prophy Recall Patient tolerated procedure well, all questions answered and expressed understanding. Dismissed in good condition. NV: 6 mos recall Diet Attendant: Kasia Maldonado RDH Dentist: Toni Pappas DDS documented in this encounter Plan of Treatment Upcoming Encounters Date Type Department Care Team (Late st Contact Info) Description 11/03/2024 3:45 PM EDT Office Visit [facility] MEDICINE [address] [place] [phone] Name, MD Martín [address] [place] [address] 03/18/2025 10:00 AM EDT Office Visit [facility] ADULT DENTAL [address] [place] [address] Kasia Maldonado [address] [place] [address] documented as of this encounter Procedures Procedure Name Priority Date/Time Associated Diagnosis Comments TOPICAL APPLICATION OF FLUORIDE VARNISH Routine 09/02/2024 2:00 PM EDT Dental plaque Localized gingival recession, minimal PROPHYLAXIS - ADULT Routine 09/02/2024 2 :00 PM EDT Dental plaque PERIODIC ORAL EVALUATION - ESTABLISHED PATIENT Routine 09/02/2024 2:00 PM EDT ORAL HYGIENE INSTRUCTIONS Routine 09/02/2024 2:00 PM EDT Dental plaque Localized gingival recession, minimal Missing teeth, acquired 8,9 INTRAORAL - PERIAPICAL FIRST RADIOGRAPHIC IMAGE Routine 09/02/2024 2:00 PM EDT Dental plaque Localized gingival recession, minimal Missing teeth, acquired 24,25 INTRAORAL - PERIAPICAL EACH ADDITIONAL RADIOGRAPHIC IMAGE Routine 09/02/2024 2:00 PM EDT Dental plaque Localized gingival recession, minimal Missing teeth, acquired CASE PRESENTATION, DETAILED AND EXTENSIVE TREATMENT PLANNING Routine 09/02/2024 2:00 PM EDT Dental plaque Localized gingival recession, minimal Missing teeth, acquired BITEWINGS - 4 RADIOGRAPHIC IMAGES Routine 09/02/2024 2:00 PM EDT Dental plaque Localized gingival recession, minimal Missing teeth, acquired documented in this encounter Visit Diagnoses Diagnosis Dental plaque- Primary Accretions on teeth Localized gingival recession, minimal Missing teeth, acquired documented in this encounter Additional Health Concerns Assessment Noted Time PHQ-9 Depression Total Score: 22 024 11:54 AM EST documented as of this encounter Care Teams Artificial Marble Worker Relationship Specialty Start Date End Date Name, MD Martín [address] [place] [address] PCP - General Family Medicine 07/18/15 documented as of this encounter
--- OUTSIDE RECORDS SUMMARY | 2024-09-05 12:22 | XMS_ITS | Encounter Summary ---
Author Organization [employer] Address 75 [facility] 7t [place] [address] Care Team Providers Care Pumper Gager Apprentice Name Role Phone Name, Martín MARKS Primary Care Provider [phone] Reason for Visit * Reason Comments Med Refill Encounter Details Date Type Department Care Team (Late st Contact Info) Description 09/25/2022 Refill [facility] MEDICINE [address] [place] [address] [phone] Name, MD Martín [address] [place] [address] [phone] Insomnia, unspecified type Social History Tobacco Use [...] Description 11/03/2024 3:45 PM EDT Office Visit [facility] MEDICINE [address] [place] [address] [phone] Name, MD Martín [address] [place] [address] [phone] 03/18/2025 10:00 AM EDT Office Visit [facility] ADULT DENTAL [address] [place] [address] Kasia Maldonado [address] [place] [address] documented as of this encounter Visit Diagnoses Diagnosis Insomnia, unspecified type documented in this encounter Care Teams Pumper Gager Apprentice Relationship Specialty Start Date End Date Name, MD Martín [address] [place] [address] PCP - General Family Medicine 07/18/15 documented as of this encounter
--- OUTSIDE RECORDS SUMMARY | 2024-09-05 12:22 | XMS_ITS | Encounter Summary ---
Author Organization [employer] Address 75 [facility] 7t [place] [address] Care Team Providers Care Homicide Squad Sergeant Name Role Phone Name, Martín MARKS Primary Care Provider [phone] Encounter Details Date Type Department Care Team ([facility] st Contact Info) Description 03/25/2023 Orders Only [facility] MEDICINE [address] [place], [place] [phone] Name, MD Martín [address] [place] [address] Social History Tobacco Use Types Packs/Day Years [...] Description 11/03/2024 3:45 PM EDT Office Visit [facility] MEDICINE [address] [place] [address] Name, MD Martín [address] [place] [address] 03/18/2025 10:00 AM EDT Office Visit [facility] ADULT DENTAL [address] [place] [address] Kasia Maldonado [address] [place] [address] documented as of this encounter Visit Diagnoses Not on filedocumented in this encounter Care Teams Homicide Squad Sergeant Relationship Specialty Start Date End Date Name, MD Martín [address] [place] [phone] PCP - General Family Medicine 07/18/15 documented as of this encounter
--- OUTSIDE RECORDS SUMMARY | 2024-09-05 12:22 | XMS_ITS | Encounter Summary ---
Author Organization [employer] Address 75 [facility] 7t [place] [address] Care Team Providers Care Secondary Teacher Name Role Phone Name, Martín MARKS Primary Care Provider [phone] Encounter Details Date Type Department Care Team (Late st Contact Info) Description 08/31/2024 Orders Only [facility] MEDICINE [address] [place], [place] [phone] Name, MD Martín [address] [place] [address] Chronic insomnia (Primary Dx) Social History Tobacco Use Types Packs/Day Years [...] Description 11/03/2024 3:45 PM EDT Office Visit [facility] MEDICINE [address] [place] [address] NameMartín MD [address] [place] [phone] 03/18/2025 10:00 AM EDT Office Visit [facility] ADULT DENTAL [address] [place] [address] Erica, Kasia [address] [place] [address] documented as of this encounter Visit Diagnoses Diagnosis Chronic insomnia- Primary Insomnia, unspecified documented in this encounter Additional Health Concerns Assessment Noted Time PHQ-9 Depression Total Score: 22 024 11:54 AM EST documented as of this encounter Care Teams Secondary Teacher Relationship Specialty Start Date End Date Name, MD Martín [address] [place] [phone] PCP - General Family Medicine 07/18/15 documented as of this encounter
--- OUTSIDE RECORDS SUMMARY | 2024-09-05 12:22 | XMS_ITS | Encounter Summary ---
Author Organization [employer] Address 75 [facility] 7t [place] [address] Care Team Providers Care Faculty I On Call Medical Assistant Name Role Phone Name, Martín MARKS Primary Care Provider [phone] Reason for Visit * Reason Comments Med Refill Encounter Details Date Type Department Care Team ([facility] st Contact Info) Description 04/09/2023 Refill [facility] MEDICINE [address] [place], [place] [phone] Name, MD Martín [address] [place] [address] Social History Tobacco Use Types Packs/Day Years [...] Description 11/03/2024 3:45 PM EDT Office Visit [facility] MEDICINE [address] [place] [address] Name, MD Martín [address] [place] [address] 03/18/2025 10:00 AM EDT Office Visit [facility] ADULT DENTAL [address] [place] [address] Kasia Maldonado [address] [place] [address] documented as of this encounter Visit Diagnoses Not on filedocumented in this encounter Care Teams Faculty I On Call Medical Assistant Relationship Specialty Start Date End Date Name, MD Martín [address] [place] [phone] PCP - General Family Medicine 07/18/15 documented as of this encounter
--- OUTSIDE RECORDS SUMMARY | 2024-09-05 12:22 | XMS_ITS | Encounter Summary ---
Author Organization [employer] Address 75 [facility] 7t [place] [address] Care Team Providers Care Electrician'S Assistant Name Role Phone Name, Martín MARKS Primary Care Provider [phone] Encounter Details Date Type Department Care Team ([facility] st Contact Info) Description 03/07/2023 Orders Only [facility] CHC MED & PEDS [address] [place], [place] [phone] Geno Malave LPN Social History Tobacco Use [...] Description 11/03/2024 3:45 PM EDT Office Visit [facility] MEDICINE [address] [place] [address] Name, MD Martín [address] [place] [address] 03/18/2025 10:00 AM EDT Office Visit [facility] ADULT DENTAL [address] [place] [address] Kasia Maldonado [address] [place] [address] documented as of this encounter Procedures Procedure Name Priority Date/Time Associated Diagnosis Comments BI MAMMOGRAM SCREENING TOMOSYNTHESIS BILATERAL Routine 03/11/2023 2:45 PM EDT documented in this encounter Results * BI Mammogram Screening Tomosynthesis Bilateral (03/11/2023 2:45 PM EDT) Anatomical Region Laterality Modality Breast Bilateral Mammography 03/11/2023 2:45 PM EDT Narrative 03/29/2023 1:32 PM EST ? [facility] ? [address] [facility] ?[place] [address] ? Mammography Report ? Signed ? Patient: Raimundo Abdalla,Eduarda ?MR ?? #: [id number] ? : 1950 ?Acct:[id number] ? Age/Sex: 72 / F ?ADM Date: 10/24/23 ? Loc: HO.MAMMO ? Attending : Martín Pittman MD ? Ordering Physician: Toya,Martín MARKS ?Results: 1Negative ? Date of Service: 03/11/23 ?Follow Up: 1 Year From Orig ?? inal Mammogram ? Procedure(s): MM tomosynthesis screening BI ?? Accession Number(s): [id number] ? cc: Toya,Martín MARKS ? EXAMINATION: ?? [...] ? DD/DT: 03/11/ 1445 ? TD/TT: ? Tea Bag Packer: ? Procedure Note Donotuseinterpreter, Image - 03/29/2023 [facility] [address] [place] [address] Mammography Report Signed Patient: Wendie Faye MMR #: [id number] : 3Acct:[id number] Age/Sex: 72 / FADM Date: 03/11/23 Loc: HO.MAMMO Attending Dr: Martín Pittman MD Ordering Physician: Martín Pittman MDResults: 1Negative Date of Service: 03/11/23Follow Up: 1 Year From Orig inal Mammogram Procedure(s): MM tomosynthesis screening BI Accession Number(s): [id number] cc: Martín Pittman MD EXAMINATION: MM SCREENING [...] in OV> 03/29/23 1329 DD/ 1445 TD/TT: Tea Bag Packer: Martín Pittman MD IMG BI PROCEDURES Edited Result - Final documented in this encounter Visit Diagnoses Not on filedocumented in this encounter Care Teams Electrician'S Assistant Relationship Specialty Start Date End Date Name, MD Martín [address] [place] [address] PCP - General Family Medicine 07/18/15 documented as of this encounter
--- OUTSIDE RECORDS SUMMARY | 2024-09-05 12:22 | XMS_ITS | Encounter Summary ---
Author Organization [employer] Address [address] [facility] 7t [place] [address] Care Team Providers Care Lawn Mower Mechanic Name Role Phone Name, Martín MARKS Primary Care Provider [phone] Reason for Visit * Reason Onset Date Comments Hospital Follow-up 04/12/2024 Encounter Details Date Type Department Care Team ([facility] st Contact Info) Description 04/12/2024 Telephone [facility] MEDICINE [address] [place], [place] [phone] Name, MD Martín [address] [place] [address] Hospital Follow-up Social History Tobacco Use Types [...] from pt requesting a HDF appt. Hospital: [facility] Date of admission: 04/07/24 Discharge date: 04/12/24 Diagnosed: intestinal infection *Send message to [facility] Clinical Care Coordinators documented in this encounter Plan of Treatment Upcoming Encounters Date Type Department Care Team (Late st Contact Info) Description 11/03/2024 3:45 PM EDT Office Visit [facility] MEDICINE [address] [place] [phone] NameMartín MD [address] [place] [address] 03/18/2025 10:00 AM EDT Office Visit [facility] ADULT DENTAL [address] [place] [address] Kasia Maldonado [address] [place] [address] documented as of this encounter Visit Diagnoses Not on filedocumented in this encounter Additional Health Concerns Assessment Noted Time PHQ-9 Depression Total Score: 22 024 11:54 AM EST documented as of this encounter Care Teams Lawn Mower Mechanic Relationship Specialty Start Date End Date NameMartín MD [address] [place] [phone] PCP - General Family Medicine 07/18/15 documented as of this encounter
--- OUTSIDE RECORDS SUMMARY | 2024-09-05 12:22 | XMS_ITS | Encounter Summary ---
Author Organization [employer] Address 75 [facility] 7t [place] [address] Care Team Providers Care Prestressed Concrete Laborer Name Role Phone Name, Martín MARKS Primary Care Provider [phone] Reason for Visit * Reason Onset Date Comments Call Back Request 07/11/2023 Encounter Details Date Type Department Care Team ([facility] st Contact Info) Description 07/11/2023 Telephone [facility] MEDICINE [address] [place], [place] [phone] Name, MD Martín [address] [place] [address] Call Back Request Social History Tobacco Use [...] T/C to pt. For below message through [email or web address] id - [id number], pt. States she has already apt. For CT scan, pt. Is all set right now. Advised to give call to [facility] if any question or concerns. * Telephone Encounter - Sharon Langford - 07/11/2023 11:45 AM EST Tc from pt requesting order for ct scan on left hand stated talk with PCP about this please contactpt for clarifications. documented in this encounter Plan of Treatment Upcoming Encounters Date Type Department Care Team ([facility] st Contact Info) Description 11/03/2024 3:45 PM EDT Office Visit [facility] MEDICINE [address] [place] [address] NameMartín MD [address] [place] [address] 03/18/2025 10:00 AM EDT Office Visit [facility] ADULT DENTAL [address] [place] [address] Kasia Maldonado [address] [place] [address] documented as of this encounter Visit Diagnoses Not on filedocumented in this encounter Care Teams Prestressed Concrete Laborer Relationship Specialty Start Date End Date NameMartín MD [address] [place] [address] PCP - General Family Medicine 07/18/15 documented as of this encounter
--- OUTSIDE RECORDS SUMMARY | 2024-09-05 12:22 | XMS_ITS | Encounter Summary ---
Author Organization [employer] Address 75 [facility] 7t [place] [address] Care Team Providers Care Junior Project Manager Name Role Phone Name, Martín MARKS Primary Care Provider [phone] Encounter Details Date Type Department Care Team (Latest Contact Info) Description 11/01/2021 Abstract [facility] CONVERSIONS Dental, Provider, DDS Social [...] Description 11/03/2024 3:45 PM EDT Office Visit [facility] MEDICINE [address] [place] [phone] NameMartín MD [address] [place] [address] 03/18/2025 10:00 AM EDT Office Visit [facility] ADULT DENTAL [address] [place] [address] Kasia Maldonado [address] [place] [address] documented as of this encounter Visit Diagnoses Not on filedocumented in this encounter Care Teams Junior Project Manager Relationship Specialty Start Date End Date Martín Pittman MD [address] [place] [phone] PCP - General Family Medicine 07/18/15 documented as of this encounter
--- OUTSIDE RECORDS SUMMARY | 2024-09-05 12:22 | XMS_ITS | Encounter Summary ---
Author Organization [employer] Address [address] [facility] 7t [place] [address] Care Team Providers Care Heel Seat Fitter Name Role Phone Name, Martín MARKS Primary Care Provider [phone] Reason for Visit * Reason Onset Date Comments Prior Auth Prescription 09/01/2024 Encounter Details Date Type Department Care Team ([facility] st Contact Info) Description 09/01/2024 Telephone [facility] MEDICINE [address] [place], [place] [phone] Name, MD Martín [address] [place] [address] Prior Auth Prescription Social History Tobacco Use [...] encounter Miscellaneous Notes * Telephone Encounter - Elle Delacruz RN - 09/02/2024 11:56 AM EDT Tc to pt via memory lane syndications id: [id number] to inform pt that the generic of Ambien will not be covered and pt will have to trial the doxepin which was sent to the pharmacy. Pt reports they refuse to take thedoxepin, requesting for Ambien to be sent because that what they've been taking for years. Pt reports frustrations in regards to their PCP changing their medication. Pt advised that insurance is requiring them to trial the doxepin first. Pt reports their insurance states they will cover the genericbrand. Pt states they will pay out of pocket for the medication if they have to or fine someone whois selling it. Pt instructed to call their insurance to discuss different plans in regards to to coverage. Pt verbalized understanding at this time. * Telephone Encounter - Safia Eubanks - 09/02/2024 11:03 AM EDT Tc from pt returning phone call. Zambian * Telephone Encounter - Elle Delacruz RN - 09/01/2024 3:43 PM EDT Tc to pt via memory lane syndications id: [id number] requesting a call back. No answer, lvm to return call and ask to speak to blue team nurses. * Telephone Encounter - Jillian Mendoza - 09/01/2024 11:24 AM EDT Tc from pt requesting to speak with pcp regarding last task. * Telephone Encounter - Kamryn Trimble - 09/01/2024 7:47 AM EDT Scientific Writer called pt 08/31 and informed pt of pcp decision to change medication to Doxepin. Recommended trial of new medication as insurance requires it as step therapy. Pt stated she does not want new medication and will contact her health care consultant and blue team to speak with provider on the matter. * Telephone Encounter - Kamryn Trimble - 09/01/2024 7:47 AM EDT ----- Message from Martín Pittman MD sent at 08/31/2024 2:42 PM EDT ----- Regarding: RE: Zolpidem PA denial I will send a trial of Doxepin to the pharmacy ----- Message ----- From: Kamryn Trimble Sent: 08/31/2024 2:31 PM EDT To: Martín Pittman MD Subject: Zolpidem PA denial Alex Pittman Pt came to front end drupal developer with the PA Denial letter for Zolpidem and is upset stating she has not been able to sleep for 2 weeks after her surgery. I have to call her back with an update on the medication. I can resubmit the PA request but insurance needs to know if pt has contraindications to or has had an inadequate response to Doxepin 3 or 6mg. Please let me know how you would like to proceed. Thank you documented in this encounter Plan of Treatment Upcoming Encounters Date Type Department Care Team (Late st Contact Info) Description 11/03/2024 3:45 PM EDT Office Visit [facility] MEDICINE [address] [place] [address] Name, MD Martín [address] [place] [address] 03/18/2025 10:00 AM EDT Office Visit [facility] ADULT DENTAL [address] [place] [address] Kasia Maldonado [address] [place] [address] documented as of this encounter Visit Diagnoses Not on filedocumented in this encounter Additional Health Concerns Assessment Noted Time PHQ-9 Depression Total Score: 22 024 11:54 AM EST documented as of this encounter Care Teams Heel Seat Fitter Relationship Specialty Start Date End Date Name, [place] [address] PCP - General Family Medicine 07/18/15 documented as of this encounter
--- OUTSIDE RECORDS SUMMARY | 2024-09-05 12:22 | XMS_ITS | Clinical Summary ---
Author Organization [employer] Address 75 [facility] 7t [place] [address] Care Team Providers Care Inspector Tubes Name Role Phone Name, Martín MARKS Primary Care Provider [phone] Allergies No known active allergies Medications atorvastatin [...] MANANA 90 tablet 1 08/25/19 25 Active doxepin (Silenor) 3 MG tablet Take 1 tablet (3 mg) by mouth at bedtime. 30 tablet 09/01/19 25 Active loratadine (Claritin) 10 MG tabletIndicatio [...] discharge follow-up 03/02/2024 Overview (03/02/2024): D/C from [facility]--readmitted to x 1 day-biotics discharge p.o. antibiotics [...] allergic rhinitis 11/17/2015 Carpal tunnel syndrome 10/18/2015 Chronic insomnia 08/23/2011 Major depressive disorder 08/23/2011 Anxiety state 08/23/2011 Resolved Problems Problem Noted Date Diagnosed Date Resolved Date Drowsy 05/20/2018 11/20/2022 Morning headache 05/20/2018 11/20/2022 Tired 05/20/2018 11/20/2022 Encounters Date Type Department Care Team Description 09/02/2024 2:00 PM EDT Office Visit [facility] ADULT DENTAL [address] [place] [address] EricaKasia Dental plaque (Primary Dx); Localized gingival recession, minimal; Missing teeth, acquired 09/02/2024 Telephone [facility] MEDICINE [address] [place] [address] Martín Pittman MD transfer Patient 09/01/2024 Telephone [facility] MEDICINE [address] [place] [address] Martín Pittman MD Prior Auth Prescription 08/31/2024 Orders Only [facility] MEDICINE [address] [place] [phone] Martín Pittman MD Chronic insomnia (Primary Dx) 08/27/2024 Telephone [facility] MEDICINE [address] [place] [address] Martín Garland MD Prior Auth Prescription 08/24/2024 Telephone [facility] MEDICINE [address] [place] [address] Martín Pittman MD Medication Question 08/23/2024 Refill [facility] MED[facility] [address] [place] [phone] Martín Pittman MD Allergic rhinitis, unspecified seasonality, unspecified trigger 08/20/2024 Refill [facility] MED[facility] [address] [place] [address] Martín Pittman MD Insomnia, unspecified type 07/20/2024 Telephone [facility] MED[facility]INE [address] [place] [address] Martín Pittman MD Durable Medical Equipment 07/19/2024 4:00 PM EST Office Visit [facility] MEDICINE [address] [place] [address] Martín Pittman MD Diverticulitis (Primary Dx); Flu vaccine refused; Primary osteoarthritis of right knee 07/19/2024 Refill [facility] MED[facility]INE [address] [place] [address] Martín Pittman MD Insomnia, unspecified type 07/15/2024 Telephone [facility] [address] [place], [place] [phone] Martín Pittman MD chartprep 07/14/[address] [address] Martín Pittman MD ER Follow-up 06/23/2024 Orders Only [facility] External Provider, [facility] 06/21/2024 Refill [facility] MED[facility] [address] [place] [phone] Martín Pittman MD Insomnia, unspecified type from [...] Pressure 128/80 09/02/2024 1:52 PM EDT Pulse 87 07/19/2024 3:50 PM EST Temperature [...] Description 11/03/2024 3:45 PM EDT Office Visit [facility] MEDICINE [address] [place], [place] [phone] Name, MD Martín [address] [place] [address] 03/18/2025 10:00 AM EDT Office Visit [facility] ADULT DENTAL [address] [place] [address] Erica, Kasia [address] [place] [address] Health Maintenance Due Date Last Done Comments CT Colonography 1950 FIT DNA/Cologuard 1950 FOBT 1950 Sigmoidoscopy 1950 Zoster Vaccines (1 of 2) 2002 RSV Patients and Patients Aged 60 years or older (1 - Risk 60-74 years 1-dose series) 2012 FIT 07/15/2023 07/15/2022, 07/15/2022 COVID-19 Vaccine ( season) 2024 01/02/2022, 01/02/2022, 10/30/2021, Additional history exists Influenza Vaccine (#1) 2024 01/30/2015, 2013 SDOH Screening 09/14/2024 09/15/2023 Depression Monitoring 10/04/2024 04/06/2024, 024 Dental X-Ray: Full Mouth 11/07/2024 11/06/2021 Dental Oral Exam 03/05/2025 09/02/2024, 10/2023, 08/12/2022 Dental Prophylaxis 03/05/2025 09/02/2024, 0 01/01/2024, 06/24/2023, Additional history exists Alcohol/Substance Use Screening 04/06/2025 04/06/2024 Depression Screening 04/06/2025 04/06/2024, 04/06/20 24 Tobacco Screening 09/02/2025 09/02/2024 Dental X-Ray: Bitewings 09/03/2025 09/03/19 25, 06/24/2023, 08/12/2022 DTaP/Tdap/Td Vaccines (2 - Td or Tdap) [...] Procedure Name Priority Date/Time Associated Diagnosis Comments PERIODIC ORAL EVALUATION - ESTABLISHED PATIENT Routine 09/02/2024 2:00 PM EDT 24,25 INTRAORAL - PERIAPICAL EACH ADDITIONAL RADIOGRAPHIC [...] Localized gingival recession, minimal Missing teeth, acquired ORAL HYGIENE INSTRUCTIONS Routine 09/02/2024 2:00 PM EDT Dental plaque Localized gingival recession, minimal Missing teeth, acquired TOPICAL APPLICATION OF FLUORIDE VARNISH Routine 09/02/2024 2:00 PM EDT Dental plaque Localized gingival recession, minimal PROPHYLAXIS - ADULT Routine 09/02/2024 2 :00 PM EDT Dental plaque AMB REFERRAL TO SLEEP MEDICINE Routine 08/09/2024 Hypersomnia Snoring HEMATOXYLIN AND EOSIN STAIN Routine 06/23/2024 9:33 AM EST US BREAST NDL CORE BIOPSY RT Routine 06/23/2024 9:00 AM EST BI MAMMOGRAM DIAGNOSTIC TOMOSYNTHESIS RIGHT Routine 06/23/2024 9:00 AM EST HEPATITIS C ANTIBODY Routine 05/10/2024 1:37 PM EST HM COLONOSCOPY Routine 08/12/2023 LIPID PANEL, STANDARD Routine 07/24/2022 9:07 AM EST Essential hypertension FECAL IMMUNOCHEMICAL Routine 07/15/2022 from Last 3 Months or Most Recently Relevant to Health Maintenance Results * Referral to Sleep Medicine (08/09/2024) us Martín Pittman MD OUTPATIENT REFERRAL ORDERABLES F inal Result * Hematoxylin and Eosin Stain (06/23/2024 9:33 AM EST) 06/23/2024 9:33 AM EST 06/23/2024 12:00 PM EST Narrative [facility] - 06/24/2024 12:21 PM EST ----- ------- Name: Wendie Faye ?Age/Sex: 73/F ? : 1950 Unit#: [id number] ?? Attend Dr: Tim Cifuentes MD ?Re06/23/24 ?Status: DEP REF ? Location: HO.MAMMO ?Disch: ? ----- ------- SPEC : [id number] ?RECD: 06/23/24-1199 ? STATUS: ??SOUT ? REQ NUM: [id number] ? MADHAV: 06/23/24-932 ? SUBM DR: Reina Rod DO ? ENTERED: ??06/23/24-3882 ?SP TYPE: Surgical ? OTHR DR: Tim [...] Copies To: ?? Tim Cifuentes MD ?? [facility] General Surgeons ?? [address] ?? [place] [address] ?? [phone] ?? Name,Martín MARKS ?? [address] ?? [place] [address] ?? [phone] ? CONTINUED ON NEXT PAGE ----- ------- Name: Wendie Faye ?Age/Sex: 73/F ? : 1950 Unit#: [id number] ?? Attend Dr: Tim Cifuentes MD ?Re06/23/24 ?Status: DEP REF ? Location: HO.MAMMO ?Disch: ? ----- ------- SPEC : [id number] ?RECD: 06/23/24-1199 ? STATUS: ??SOUT ? REQ NUM: [id number] ? MADHAV: 06/23/24 ? SUBM DR: Reina Rod DO ? ENTERED: ??06/23/24-120 ?SP TYPE: Surgical ? OTHR DR: Tim Cifuentes MD ?Name,Martín MARKS ORDERED: ??BUSHRA Stain/2, Gross Micro L4 ? COMMENTS: As per the specimen requisition slip the specimen is ?collected at 0933 and placed in formalin at 0940. Copies To: ??(Continued) ?? Reina Rod DO ?? [address] ?? [place] [address] ?? [phone] ----- ------- Signed (signature on file) Catia Marshall 06/24/24 1221 ? ----- ------- ? END OF REPORT ? us Generic External Data Provider LAB BLOOD ORDERAB LES Final Result [facility] [address] [place] [phone] [phone] * US BREAST NDL CORE BIOPSY RT (06/23/2024 9:00 AM EST) Anatomical Region Laterality Modality Abdomen Ultrasound 06/23/2024 9:00 AM EST Narrative 06/23/2024 10:34 AM EST ? [facility] [place] ? [address] ?[place] [address] ? Ultrasound Report ? Signed with Addenda ? Patient: Wendie Faye ?MR ?? #: [id number] ? : 1950 ?Acct:[id number] ? Age/Sex: 73 / F ?ADM Date: 06/23/24 ? Loc: HO.MAMMO ? Attending Dr: Tim Cifuentes MD ? Ordering Physician: Tim Cifuentes MD ?? Date of Service: 06/23/24 ?? Procedure(s): US breast ndl core biopsy RT ?? Accession Number(s): [id number] ? cc: Tim Cifuentes MD; Martín Pittman [...] ? Signed By: ?<Electronically signed by Reina Rod DO in OV> ? 06/23/24 1030 ? DD/ 0900 ? TD/TT: 06/23/24 0945 ? Flavoring Machine Operator: ? Procedure Note Willow, Image - 06/25/2024 [facility] [address] [place] [address] Dr. [place], [place] [address] Ultrasound Report Signed with Eric Patient: Wendie Faye MMR #: [id number] : 3Acct:[id number] Age/Sex: 73 / FADM Date: 06/23/24 Loc: HO.MAMMO Attending Dr: Tim Cifuentes MD Ordering Physician: Tim Cifuentes MD Date of Service: 06/23/24 Procedure(s): US breast ndl core biopsy RT Accession Number(s): [id number] cc: Tim Cifuentes MD; Name,Martín MARKS ADDENDUM [...] 06/23/24 1030 DD/ 0900 TD/TT: 06/23/24 0945 Flavoring Machine Operator: [facility] External Provider IMG US PROCEDURES Edited Result - Final * BI Mammogram Diagnostic Tomosynthesis Right (06/23/2024 9:00 AM EST) Anatomical Region Laterality Modality Breast Right Mammography 06/23/2024 9:00 AM EST Narrative 06/23/2024 10:34 AM EST ? [facility] [place] ? [address] ?[place] [address] ? Mammography Report ? Signed with Addenda ? Patient: Raimundo Abdalla,Eduarda ?MR ?? #: [id number] ? : 1950 ?Acct:[id number] ? Age/Sex: 73 / F ?ADM Date: 02/05/25 ? Loc: HO.MAMMO ? Attending Dr: Tim Cifuentes MD ? Ordering Physician: Tim Cifuentes MD ?Results: ? Date of Service: 06/23/24 ?Follow Up: ? Procedure(s): MM tomosynthesis diagnostic RT ?? Accession Number(s): [id number] ? cc: Tim Cifuentes MD; Martín Pittman [...] DD/ 0900 ? TD/TT: 06/23/24 0945 ? Flavoring Machine Operator: ? Procedure Note Donyohanabarbinterpreter, Image - 07/02/2024 [place] [facility] [address] [place] [address] Mammography Report Signed with Eric Patient: Wendie Faye MMR #: [id number] : 3Acct:[id number] Age/Sex: 73 / FADM Date: 06/23/24 Loc: RENÉ Attending Dr: Tim Cifuentes MD Ordering Physician: Tim Cifuentesesults: Date of Service: 06/23/24Follow Up: Procedure(s): MM tomosynthesis diagnostic RT Accession Number(s): [id number] cc: Tim Cifuentes MD; Name,Martín MARKS ADDENDUM [...] 06/23/24 1030 DD/ 0900 TD/TT: 06/23/24 0945 Flavoring Machine Operator: [facility] External Provider IMG BI PROCEDURES Edited Result - Final * Hepatitis C Ab (05/10/2024 1:37 PM EST) Hepatitis C Antibody Nonreactive Nonreactive [facility] Comment:Antibodies to HCV no t detected; does not exclude early acuteHCV infection. 05/10/2024 1:37 PM EST 05/10/2024 4:01 PM EST Generic External Data Provider LAB BLOOD ORDERAB LES Final Result [facility] [address] [place] [phone] * (ABNORMAL) Hm Colonoscopy (08/12/2023) Pathologist [facility] Colonoscopy Abnormal(A ) Normal Martín Pittman MD HEALTH MAINTENANCE Final Result * (ABNORMAL) Lipid Panel, Standard (07/24/2022 9:07 AM EST) Pathologist [facility] Cholesterol, Total 206(H) <200 mg/dL [facility] [employer] HDL Cholesterol 40(L) > OR = 50 mg/dL [facility] Triglycerides 252(H) <150 mg/dL [employer] Comment: If a non-fasting specimen was collected, consider repeat triglyceride testing on a fasting specimen if clinically indicated. Arian et al. J. of Clin. Lipidol. 2015;9:129-169. LDL Cholesterol 127(H) mg/dL (calc) [facility] [employer] Comment: Reference range: <100 Desirable range <100 mg/dL for primary prevention; ?? <70 mg/dL for patients with CHD or diabetic patients with > or = 2 CHD risk factors. LDL-C is now calculated using the Amy calculation, which is a validated novel method providing better accuracy than the Friedewald equation in the estimation of LDL-C. James GREENWOOD et al. SHEREE. 2013;310(19): 0960-1936 (http://education.[employer]/faq/KCM188) Chol/HDLC Ratio 5.2(H) <5.0 (calc) [employer] Non-HDL Cholesterol 166(H) <130 mg/dL (calc) [employer] Comment: For patients with diabetes plus 1 major ASCVD risk factor, treating to a non-HDL-C goal of <100 mg/dL (LDL-C of <70 mg/dL) is considered a therapeutic option. Blood Venous blood specimen / Unknown 07/24/2022 9:07 AM EST 07/24/2022 9:08 AM EST Narrative [facility] - 07/24/2022 9:39 PM EST FASTING:NO FASTING: NO Martín Name LAB BLOOD ORDERABLES Final Resul t [facility] [address], [place] [address] [employer] 200 [facility], (Nl[facility]) [place] [address] * Fecal immunochemical (07/15/2022) Fecal Immunoassay Test (External) Negative Stool Rectal contents / Unknown Historical Provider LAB BODY FLUIDS AND STOOL S ORDERABLES Final Result from Last 3 Months or Most Recently Relevant to Health Maintenance Insurance [facility] Care Teams Inspector Tubes Relationship Specialty Start Date End Date Name, MD Martín [address] [place] [address] PCP - General Family Medicine 07/18/15
--- OUTSIDE RECORDS SUMMARY | 2024-09-05 12:22 | XMS_ITS | Encounter Summary ---
Author Organization [employer] Address 75 [facility] 7t [place] [address] Care Team Providers Care Screw Driver Operator Name Role Phone Name, Martín MARKS Primary Care Provider [phone] Reason for Visit * Reason Onset Date Comments Med Refill 10/21/2022 Encounter Details Date Type Department Care Team ([facility] Contact Info) Description 10/21/2022 Refill [facility] MEDICINE [address] [place], [place] [phone] Name, MD Martín [address] [place] [address] Insomnia, unspecified type Social History Tobacco Use [...] Upcoming Encounters Date Type Department Care Team ([facility] Contact Info) Description 11/03/2024 3:45 PM EDT Office Visit [facility] MEDICINE [address] [place] [address] Name, MD Martín [address] [place] [address] 03/18/2025 10:00 AM EDT Office Visit [facility] ADULT DENTAL [address] [place] [address] Kasia Maldonado [address] [place] [address] documented as of this encounter Visit Diagnoses Diagnosis Insomnia, unspecified type documented in this encounter Care Teams Screw Driver Operator Relationship Specialty Start Date End Date Name, MD Martín [address] [place] [address] PCP - General Family Medicine 07/18/15 documented as of this encounter
--- OUTSIDE RECORDS SUMMARY | 2024-09-05 12:22 | XMS_ITS | Encounter Summary ---
Author Organization [employer] [facility] Address [address] [facility] 7t [place] [address] Care Team Providers Care Signals Analyst Name Role Phone Name, Martín MARKS Primary Care Provider [phone] Encounter Details Date Type Department Care Team (Latest Contact Info) Description 07/26/2019 Abstract [facility] CONVERSIONS Dental, Provider, DDS Social History [...] Description 11/03/2024 3:45 PM EDT Office Visit [facility] MEDICINE [address] [place] [address] NameMartín MD [address] [place] [address] 03/18/2025 10:00 AM EDT Office Visit [facility] ADULT DENTAL [address] [place] [address] Kasia Maldonado [address] [place] [address] documented as of this encounter Visit Diagnoses Not on filedocumented in this encounter Care Teams Signals Analyst Relationship Specialty Start Date End Date Martín Pittman MD [address] [place] [address] PCP - General Family Medicine 07/18/15 documented as of this encounter
--- OUTSIDE RECORDS SUMMARY | 2024-09-05 12:22 | XMS_ITS | Encounter Summary ---
Author Organization [employer] [facility] Address [address] [facility] 7t [place] [address] Care Team Providers Care Recruiter Manager Name Role Phone Name, Martín MARKS Primary Care Provider [phone] Reason for Visit * Reason Comments Med Refill Encounter Details Date Type Department Care Team (Late Contact Info) Description 07/26/[address] [facility] MEDICINE [address] [place] [address] [phone] Name, MD Martín [address] [place] [phone] Insomnia, unspecified type Social History Tobacco Use [...] Department Care Team (Late Contact Info) Description 11/03/2024 3:45 PM EDT Office Visit [facility] MEDICINE [address] [place] [phone] Name, MD Martín [address] [place] [address] [phone] 03/18/2025 10:00 AM EDT Office Visit [facility] ADULT DENTAL [address] [place] [address] Kasia Maldonado [address] [place] [address] documented as of this encounter Visit Diagnoses Diagnosis Insomnia, unspecified type documented in this encounter Care Teams Recruiter Manager Relationship Specialty Start Date End Date Name, MD Martín [address] [place] [address] PCP - General Family Medicine 07/18/15 documented as of this encounter
--- OUTSIDE RECORDS SUMMARY | 2024-09-05 12:22 | XMS_ITS | Encounter Summary ---
Author Organization [employer] Address 75 [facility] 7t [place] [address] Care Team Providers Care Drilling Inspector Name Role Phone Name, Martín MARKS Primary Care Provider [phone] Encounter Details Date Type Department Care Team (Latest Contact Info) Description 11/06/2020 Abstract [facility] CONVERSIONS Dental, Provider, DDS Social History [...] Description 11/03/2024 3:45 PM EDT Office Visit [facility] MEDICINE [address] [place] [phone] NameMartín MD [address] [place] [address] 03/18/2025 10:00 AM EDT Office Visit [facility] ADULT DENTAL [address] [place] [address] Kasia Maldonado [address] [place] [address] documented as of this encounter Visit Diagnoses Not on filedocumented in this encounter Care Teams Drilling Inspector Relationship Specialty Start Date End Date Martín Pittman MD [address] [place] [phone] PCP - General Family Medicine 07/18/15 documented as of this encounter
--- OUTSIDE RECORDS SUMMARY | 2024-09-05 12:22 | XMS_ITS | Encounter Summary ---
Author Organization [employer] Address 75 [facility] 7t [place] [address] Care Team Providers Care Used Equipment Sales Representative Name Role Phone Name, Martín MARKS Primary Care Provider [phone] Reason for Visit * Reason Comments Med Refill Encounter Details Date Type Department Care Team ([facility] st Contact Info) Description 05/24/2023 Refill [facility] MEDICINE [address] [place], [place] [phone] Name, MD Martín [address] [place] [address] Allergic rhinitis, unspecified seasonality, unspecified trigger Social [...] Description 11/03/2024 3:45 PM EDT Office Visit [facility] MEDICINE [address] [place] [address] Name, MD Martín [address] [place] [address] 03/18/2025 10:00 AM EDT Office Visit [facility] ADULT DENTAL [address] [place] [address] Kasia Maldonado [address] [place] [address] documented as of this encounter Visit Diagnoses Diagnosis Allergic rhinitis, unspecified seasonality, unspecified trigger documented in this encounter Care Teams Used Equipment Sales Representative Relationship Specialty Start Date End Date NameMartín MD [address] [place] [address] PCP - General Family Medicine 07/18/15 documented as of this encounter
[2024-09-05 14:31] VITALS: BP 122/75; PULSE 65; RESP 18; TEMP 36.6; O2SAT 98
[2024-09-05 14:45] VITALS: BP 122/75; PULSE 65; RESP 18; TEMP 36.6; O2SAT 98
== END 2024-09-05 14:46 | disposition home or self-care (01) ==
PROVIDERS: Emergency Provider Emergency Medicine Emergency Medical Services; PCP Internal Medicine Geriatric Medicine
DX: M25.561 Pain in right knee (principal); R10.30 Lower abdominal pain, unspecified; M17.0 Bilateral primary osteoarthritis of knee; M79.604 Pain in right leg
CPT/HCPCS: 73564; 93971; 99284

== ENCOUNTER → 2024-09-05 12:02 | Outpatient (BNV) | payer OTHER, SELFPAY | PROVIDERS: Emergency Provider Emergency Medicine Emergency Medical Services; PCP Internal Medicine Geriatric Medicine; Visit Provider Radiology Diagnostic Radiology | DX: R10.31 Right lower quadrant pain (principal); M25.561 Pain in right knee | CPT/HCPCS: 73564; 93971 ==

== ENCOUNTER 2024-09-16 11:45 | Outpatient (REF) | payer OTHER, SELFPAY ==
--- NOTE | ~2024-09-16 | XR_ITS ---
EXAMINATION: XR HIP 2 OR MORE VIEWS RIGHT HISTORY: One month of severe right hip pain and no history of trauma COMPARISON: Comparison is made with the prior examination dated 03/02/2024. FINDINGS: Two views of the left hip are submitted. Osseous mineralization is normal. There is no fracture or dislocation. Again seen is mild joint space narrowing. The soft tissues are unremarkable. XR/XR hip RT min 2V IMPRESSION: Mild joint space narrowing. Electronically signed by: Jaylon Schmitz MD 09/16/2024 12:28 PM EDT
== END 2024-09-16 11:46 | disposition home or self-care (01) ==
LOC: HO.HHCX 11:45
PROVIDERS: Visit Provider Internal Medicine Geriatric Medicine
DX: M25.551 Pain in right hip (principal)
CPT/HCPCS: 73502

== ENCOUNTER → 2024-09-16 11:45 | Outpatient (BNV) | payer OTHER, SELFPAY | PROVIDERS: Visit Provider Radiology Diagnostic Radiology | DX: M25.551 Pain in right hip (principal) | CPT/HCPCS: 73502 ==

== ENCOUNTER 2024-09-27 13:42 | Outpatient (AMB) | payer OTHER, SELFPAY ==
--- NOTE | 2024-09-27 13:59 | A.OFFVIS_ITS ---
Vital Signs 09/27/24 14:00 Height 4 ft 11 in Weight 143 lb 4.807 oz BMI 28.9 BP 120/62 Blood Pressure Location Lt brachial Position Sitting Pulse 78 Pulse Source Pulse Oximeter Intake Visit Reasons: Ascending aorta dilatation Broadcast Field Supervisor Required: Yes Broadcast Field Supervisor Name: SHAHEED [id number] Allergies No Known Allergies Allergy (Verified 09/05/24 11:31) Medication List - Last Reconciled 09/27/24 by Murali Romano MD acetaminophen ER (Tylenol 8 Hour) 650 mg PO Q8H PRN clonazepam 0.5 mg PO BEDTIME docusate sodium (Colace) 100 mg PO BID loratadine 10 mg PO DAILY PRN losartan 25 mg PO DAILY oxycodone 5 mg PO Q6H PRN pantoprazole 20 mg PO DAILY@0630 HPI Comments Details: Wendie returns for follow-up. In the past, seen regarding syncopal episodes, thought to be possibly orthostatic. However, nothing recently. No known cardiovascular issues. Echocardiogram had shown mild ascending aortic dilatation the past but otherwise unremarkable. She has had high as well as normal blood pressures at different times. Amlodipine led to worsening leg swelling. Currently, on losartan and doing fine in that regard. Since last seen, no new concerns. She is asking if she can stop the losartan as the blood pressure is now normal. [facility] Medical History Fatty liver Snores Breast mass, right Diverticular disease Hospital discharge follow-up Acute diverticulitis Hypertension Syncope and collapse Tendonitis Arthritis Right knee pain Left hand pain Surgical History History of colon resection (08/17/24) Hx of right breast biopsy (06/23/24) Hx of hysterectomy Hx of hemorrhoidectomy Hx of colonoscopy History of hand surgery Status post hardware removal Family History Mother Alzheimer disease Hypertension Dementia Father Hypertension Social History Household Members: Spouse Housing: House Are you a primary cna caregiver to a significant other at home: No Do you presently have visiting nurse or other home services: Yes Alcohol intake: never Comment: pt refused bed alarm Patient Tobacco Use Status: Never used Tobacco e-Cigarette/Vaping Use: Never Used service: No Current occupational status: retired Current occupation: rt handed Review of Systems Const Denies weakness ENT Denies dizziness Card Denies chest pain, Denies chest pain with activity, Denies syncope, Denies rapid heart rate, Denies pedal edema, Denies edema, Denies leg edema, Denies lightheadedness, Denies palpitations, Denies dyspnea, Denies dyspnea on exertion and Denies orthopnea Resp Denies cough, Denies dyspnea and Denies dyspnea on exertion GI Denies hematochezia and Denies change in stool character Musc Denies abnormal gait, Denies muscle cramps, Denies muscle weakness, Denies numbness, Denies radiating pain into limb and Denies tingling Neuro Denies abnormal gait, Denies dizziness, Denies syncope, Denies numbness, Denies tingling and Denies weakness Endo Denies palpitations Physical Exam Vital Signs: Last Vital Signs Pulse 78 09/27/24 14:00 BP 120/62 09/27/24 14:00 BMI result Body Mass Index 28.9 Const General: comfortable and no acute distress Orientation/consciousness: patient oriented x3 HEENT Other: Unremarkable Head: Yes normal to inspection Neck Neck: Yes normal visual inspection Chest Chest palpation & inspection: normal inspection of the chest Resp Auscultation: clear to auscultation bilaterally Cardio Palpation: normal PMI Heart sounds: S1 normal heart sound present, S2 normal heart sound present, no gallops, no murmurs and no rubs GI Palpation (GI): Soft to palpation Back/Spine/Pelvis Other: unremarkable Skin General skin exam: no rashes or lesions noted Neuro General: patient oriented x3 Extrem General: Yes normal to inspection Psych Mental Status: mental status grossly normal Assessment & Plan Assessment & Plan (1) Hypertension: Code(s): I10 - Essential (primary) hypertension Category: Medical Qualifiers: Hypertension type: primary hypertension Qualified Code(s): I10 - Essential (primary) hypertension Plan: Stable on Losartan. She is asking about discontinuing losartan as the pressure is normal. If she does that, advised her to monitor blood pressures daily to ensure there is no spike. If it goes above 140/90 mm Hg, then needs to resume. She understands that. She has had leg swelling from Amlodipine in the past. (2) Ascending aorta dilatation: Code(s): I77.810 - Thoracic aortic ectasia Category: Medical Plan: In the echocardiogram from 2023, ascending aortic size 4 cm. In 2022, again 4 cm. Hence overall stable. We can recheck in 2-3 years. Coding Level of Care Code Est Pt Level 3 (44012) Diagnoses Primary hypertension I10 Hypertension type: primary hypertension Ascending aorta dilatation I77.810
[2024-09-27 14:00] VITALS: BP 120/62; PULSE 78; BMI 28.9
--- OUTSIDE RECORDS SUMMARY | 2024-09-27 14:01 | XMS_ITS | Encounter Summary ---
Author Organization [employer] Address [address] [facility] 7t [place] [address] Care Team Providers Care Putty Glazer Name Role Phone Name, Martín MARKS Primary Care Provider [phone] Reason for Visit * Reason Onset Date Comments Med Refill 07/22/2023 Encounter Details Date Type Department Care Team (Late st Contact Info) Description 07/22/2023 Telephone [facility] MEDICINE [address] [place], [place] [phone] Name, MD Martín [address] [place] [address] Med Refill Social History Tobacco Use Types [...] 10 MG tablet To be sent to: [facility]/pharmacy [address] [place] [address] documented in this encounter Plan of Treatment Upcoming Encounters Date Type Department Care Team (Late st Contact Info) Description 11/03/2024 3:45 PM EDT Office Visit [facility] MEDICINE [address] [place] [address] Name, MD Martín [address] [place] [address] 03/18/2025 10:00 AM EDT Office Visit [facility] ADULT DENTAL [address] [place] [address] Kasia Maldonado [address] [place] [address] documented as of this encounter Visit Diagnoses Not on filedocumented in this encounter Care Teams Putty Glazer Relationship Specialty Start Date End Date Name, MD Martín [address] [place] [address] PCP - General Family Medicine 07/18/15 documented as of this encounter
--- OUTSIDE RECORDS SUMMARY | 2024-09-27 14:01 | XMS_ITS | Encounter Summary ---
Author Organization [employer] Address [address] [facility] 7t [place] [address] Care Team Providers Care Computer Discovery Teacher Name Role Phone Name, Martín MARKS Primary Care Provider [phone] Encounter Details Date Type Department Care Team (Latest Contact Info) Description 11/06/2020 Abstract [facility] CONVERSIONS Dental, Provider, DDS Social History [...] Description 11/03/2024 3:45 PM EDT Office Visit [facility] MEDICINE [address] [place] [address] NameMartín MD [address] [place] [address] 03/18/2025 10:00 AM EDT Office Visit [facility] ADULT DENTAL [address] [place] [address] Kasia Maldonado [address] [place] [address] documented as of this encounter Visit Diagnoses Not on filedocumented in this encounter Care Teams Computer Discovery Teacher Relationship Specialty Start Date End Date Martín Pittman MD [address] [place] [address] PCP - General Family Medicine 07/18/15 documented as of this encounter
--- OUTSIDE RECORDS SUMMARY | 2024-09-27 14:01 | XMS_ITS | Encounter Summary ---
Author Organization [employer] Address [address] [facility] 7t [place] [address] Care Team Providers Care Peoplesoft Hcm Developer Name Role Phone Name, Martín MARKS Primary Care Provider [phone] Reason for Visit * Reason Comments Med Refill Encounter Details Date Type Department Care Team (Late st Contact Info) Description 07/26/2022 Refill [facility] MEDICINE [address] [place] [address] [phone] Name, MD Martín [address] [place] [address] [phone] Insomnia, unspecified type Social History Tobacco Use [...] 11/03/2024 3:45 PM EDT Office Visit [facility] MEDICINE [address] [place] [address] [phone] Name, MD Martín [address] [place] [address] [phone] 03/18/2025 10:00 AM EDT Office Visit [facility] ADULT DENTAL [address] [place] [address] Kasia Maldonado [address] [place] [address] documented as of this encounter Visit Diagnoses Diagnosis Insomnia, unspecified type documented in this encounter Care Teams Peoplesoft Hcm Developer Relationship Specialty Start Date End Date Name, MD Martín [address] [place] [address] PCP - General Family Medicine 07/18/15 documented as of this encounter
--- OUTSIDE RECORDS SUMMARY | 2024-09-27 14:01 | XMS_ITS | Encounter Summary ---
Author Organization [employer] Address [address] [facility] [address] 7t [place] [address] Care Team Providers Care Loss Mitigation Specialist Name Role Phone Name, Martín MARKS Primary Care Provider [phone] Encounter Details Date Type Department Care Team (Late st Contact Info) Description 03/07/2023 Orders Only [facility] MED & PEDS [address] [place], [place] [phone] Geno Malave LPN Social History Tobacco Use [...] Office Visit [facility] MEDICINE [address] [place] [address] Name, MD Martín [address] [place] [address] 03/18/2025 10:00 AM EDT Office Visit [facility] ADULT DENTAL [address] [place] [address] Kasia Maldonado [address] [place] [address] documented as of this encounter Procedures Procedure Name Priority Date/Time Associated Diagnosis Comments BI MAMMOGRAM SCREENING TOMOSYNTHESIS BILATERAL Routine 03/11/2023 2:45 PM EDT documented in this encounter Results * BI Mammogram Screening Tomosynthesis Bilateral (03/11/2023 2:45 PM EDT) Anatomical Region Laterality Modality Breast Bilateral Mammography 03/11/2023 2:45 PM EDT Narrative 03/29/2023 1:32 PM EST ? [facility] [place] ? [address] [facility] ?[place] [address] ? Mammography Report ? Signed ? Patient: Raimundo Abdalla,Eduarda ?MR ?? #: [id number] ? : 1950 ?Acct:[id number] ? Age/Sex: 72 / F ?ADM Date: 10/24/23 ? Loc: HO.MAMMO ? Attending : Martín Pittman MD ? Ordering Physician: Toya,Martín MARKS ?Results: 1Negative ? Date of Service: 03/11/23 ?Follow Up: 1 Year From Orig ?? inal Mammogram ? Procedure(s): MM tomosynthesis screening BI ?? Accession Number(s): [id number] ? cc: Toya,Martín MARKS ? EXAMINATION: ?? [...] ? DD/DT: 03/11/ 1445 ? TD/TT: ? Research Professional: ? Procedure Note Donotuseinterpreter, Image - 03/29/2023 [facility] [address] [place] [address] [place] [address] Mammography Report Signed Patient: Wendie Faye MMR #: [id number] : 3Acct:[id number] Age/Sex: 72 / FADM Date: 03/11/23 Loc: HO.MAMMO Attending Dr: Martín Pittman MD Ordering Physician: Martín Pittman MDResults: 1Negative Date of Service: 03/11/23Follow Up: 1 Year From Orig inal Mammogram Procedure(s): MM tomosynthesis screening BI Accession Number(s): [id number] cc: Martín Pittman MD EXAMINATION: MM SCREENING [...] in OV> 03/29/23 1329 DD/ 1445 TD/TT: Research Professional: Martín Pittman MD IMG BI PROCEDURES Edited Result - Final documented in this encounter Visit Diagnoses Not on filedocumented in this encounter Care Teams Loss Mitigation Specialist Relationship Specialty Start Date End Date Name, MD Martín [address] [place] [address] PCP - General Family Medicine 07/18/15 documented as of this encounter
--- OUTSIDE RECORDS SUMMARY | 2024-09-27 14:01 | XMS_ITS | Encounter Summary ---
Author Organization [employer] Address [address] [facility] 7t [place] [address] Care Team Providers Care Saturator Tender Name Role Phone Name, Martín MARKS Primary Care Provider [phone] Encounter Details Date Type Department Care Team (Late Contact Info) Description 10/28/2022 Abstract [facility] MEDICINE [address] [place] [phone] NameMartín MD [address] [place] [address] Social History Tobacco Use Types Packs/Day Years [...] Description 11/03/2024 3:45 PM EDT Office Visit [facility] MEDICINE [address] [place] [address] [phone] NameMartín MD [address] [place] [address] 03/18/2025 10:00 AM EDT Office Visit [facility] ADULT DENTAL [address] [place] [address] [phone] Kasia Maldonado [address] [place] [address] documented as of this encounter Visit Diagnoses Not on filedocumented in this encounter Care Teams Saturator Tender Relationship Specialty Start Date End Date Name, MD Martín [address] [place] [address] PCP - General Family Medicine 07/18/15 documented as of this encounter
--- OUTSIDE RECORDS SUMMARY | 2024-09-27 14:01 | XMS_ITS | Encounter Summary ---
Author Organization [employer] Address [address] [facility] 7t [place] [address] Care Team Providers Care Stud Master/Mistress Name Role Phone Name, Martín MARKS Primary Care Provider [phone] Reason for Visit * Reason Onset Date Comments Call Back Request 07/11/2023 Encounter Details Date Type Department Care Team ([facility] st Contact Info) Description 07/11/2023 Telephone [facility] MEDICINE [address] [place], [place] [phone] Name, MD Martín [address] [place] [address] Call Back Request Social History Tobacco Use [...] T/C to pt. For below message through [employer] id - [id number], pt. States she has already apt. For CT scan, pt. Is all set right now. Advised to give call to [facility] if any question or concerns. * Telephone Encounter - Sharon Langford - 07/11/2023 11:45 AM EST Tc from pt requesting order for ct scan on left hand stated talk with PCP about this please contactpt for clarifications. documented in this encounter Plan of Treatment Upcoming Encounters Date Type Department Care Team (Late st Contact Info) Description 11/03/2024 3:45 PM EDT Office Visit [facility] MEDICINE [address] [place] [address] NameMartín MD [address] [place] [address] 03/18/2025 10:00 AM EDT Office Visit [facility] ADULT DENTAL [address] [place] [address] Kasia Maldonado [address] [place] [address] documented as of this encounter Visit Diagnoses Not on filedocumented in this encounter Care Teams Stud Master/Mistress Relationship Specialty Start Date End Date Martín Pittman MD [address] [place] [address] PCP - General Family Medicine 07/18/15 documented as of this encounter
--- OUTSIDE RECORDS SUMMARY | 2024-09-27 14:01 | XMS_ITS | Encounter Summary ---
Author Organization [employer] Address [address] [facility] 7t [place] [address] Care Team Providers Care Ccnp Name Role Phone Name, Martín MARKS Primary Care Provider [phone] Encounter Details Date Type Department Care Team (Late st Contact Info) Description 03/25/2023 Orders Only [facility] MED[facility] [address] [place], [place] [phone] Name, MD Martín [address] [place] [address] Social History Tobacco Use Types Packs/Day Years [...] Description 11/03/2024 3:45 PM EDT Office Visit [facility] [address] [place] [address] Name, MD Martín [address] [place] [address] 03/18/2025 10:00 AM EDT Office Visit [facility] AD[facility] DENTAL [address] [place] [address] Kasia Maldonado [address] [place] [address] documented as of this encounter Visit Diagnoses Not on filedocumented in this encounter Care Teams Ccnp Relationship Specialty Start Date End Date Name, MD Martín [address] [place] [address] PCP - General Family Medicine 07/18/15 documented as of this encounter
--- OUTSIDE RECORDS SUMMARY | 2024-09-27 14:01 | XMS_ITS | Encounter Summary ---
Author Organization [employer] Address [address] [facility] 7t [place] [address] Care Team Providers Care Core Drill Operator Name Role Phone Name, Martín MARKS Primary Care Provider [phone] Reason for Visit * Reason Comments Med Refill Encounter Details Date Type Department Care Team ([facility] st Contact Info) Description 04/09/2023 Refill [facility] MEDICINE [address] [place], [place] [phone] Name, MD Martín [address] [place] [address] Social History Tobacco Use Types Packs/Day Years Used Date Smoking Tobacco: Never Passive Smoke Exposure: Never Smokeless Tobacco: Never Alcohol Use Standard Drinks/Week Comments Defer 0 (1 standard drink = 0.6 oz pur e alcohol) Housing Stability Answer Date Recorded What is your housing situation today? I have solangejacobo kennedy 03/04/[address] you [...] Visit [facility] MEDICINE [address] [place] [address] Name, MD Martín [address] [place] [address] 03/18/2025 10:00 AM EDT Office Visit [facility] ADULT DENTAL [address] [place] [address] Kasia Maldonado [address] [place] [address] documented as of this encounter Visit Diagnoses Not on filedocumented in this encounter Care Teams Core Drill Operator Relationship Specialty Start Date End Date Name, MD Martín [address] [place] [address] PCP - General Family Medicine 07/18/15 documented as of this encounter
--- OUTSIDE RECORDS SUMMARY | 2024-09-27 14:01 | XMS_ITS | Encounter Summary ---
Author Organization [email or web address] Address [address] [facility] 7t [place] [address] Care Team Providers Care Well Digger Name Role Phone Name, Martín MARKS Primary Care Provider [phone] Reason for Visit * Reason Comments Med Refill Encounter Details Date Type Department Care Team ([facility] st Contact Info) Description 05/24/2023 Refill [facility] MEDICINE [address] [place], [place] [phone] Name, MD Martín [address] [place] [address] Allergic rhinitis, unspecified seasonality, unspecified trigger Social [...] Description 11/03/2024 3:45 PM EDT Office Visit [facility] MEDICINE [address] [place] [address] NameMartín MD [address] [place] [address] 03/18/2025 10:00 AM EDT Office Visit [facility] ADULT DENTAL [address] [place] [address] Kasia Maldonado [address] [place] [address] documented as of this encounter Visit Diagnoses Diagnosis Allergic rhinitis, unspecified seasonality, unspecified trigger documented in this encounter Care Teams Well Digger Relationship Specialty Start Date End Date NameMartín MD [address] [place] [address] PCP - General Family Medicine 07/18/15 documented as of this encounter
--- OUTSIDE RECORDS SUMMARY | 2024-09-27 14:01 | XMS_ITS | Clinical Summary ---
Author Organization [employer] Address [address] [facility] 7t [place] [address] Care Team Providers Care Salesperson Flowers Name Role Phone Name, Martín MARKS Primary Care Provider [phone] Allergies No known active allergies Medications atorvastatin (Lipitor) 20 MG tablet Take 20 mg by mouth Once per day. 2 Active budesonide (Pulmicort) 0.5 MG/2ML nebulizer solution USE 1 VIAL VIA NEBULIZER EVERY DAY 180 mL 3 3 Active Calcium Carb-Cholecalci ferol 500-10 MG-MCG tablet Take 1 tablet by mouth 2 times daily. 7 Active cholecalciferol (Vitamin D-3) 50 MCG (2000 UT) tablet Take 1 tablet by mouth 1 (one) time each day. 2 Active cyanocobalamin (Vitamin B-12) 1000 MCG tablet Take 1 tablet by mouth in the morning. 7 Active methocarbamol (Robaxin) 750 MG tablet Take 1 tablet (750 mg) by mouth 3 times daily for 10 days. 30 tablet 3 Active albuterol (Ventolin HFA) 108 (90 Base) MCG/ACT inhaler INHALE 2 PUFFS EVERY 6 HOURS IF NEEDED FOR WHEEZING. 18 g 2 4 Active losartan (Cozaar) 25 MG tablet TOME ELISE TABLETA POR V A ORAL TODOS LOS D 4 Active omeprazole (PriLOSEC) [address] capsule TOME 1 C PSULA POR V A ORAL TODOS LOS D 4 Active amLODIPine (Norvasc) 5 MG tablet Take 1 tablet by mouth Once per day. Active amoxicillin-cla vulanate (Augmentin) 875-125 MG tablet TAKE 1 TABLET EVERY 8 HOURS BY ORAL ROUTE, FOR 10 DAYS. 5 Active dicyclomine (Bentyl) 10 MG capsule TAKE 1 CAPSULE 3 TIMES A DAY BY ORAL ROUTE, FOR NEEDED FOR ABDOMINAL CRAMPING. 5 Active zolpidem (Ambien) 10 MG tabletIndicatio ns:Insomnia, unspecified type TAKE 1 TABLET BY MOUTH AT BEDTIME IF NEEDED FOR SLEEP 30 tablet 5 Active loratadine (Claritin) 10 MG tabletIndicatio ns:Allergic rhinitis, unspecified seasonality, unspecified trigger TOME 1 TABLETA POR VIA ORAL TODOS LOS BAIN EN LA MANANA 90 tablet 1 5 Active celecoxib (CeleBREX) 200 MG capsule Take 1 capsule (200 mg) by mouth Once per day for 20 days. 20 capsule 5 09/30/19 25 Active zolpidem (Ambien) 10 MG tablet Take 1 tablet (10 mg) by mouth if needed at bedtime for sleep. 30 tablet 5 10/10/19 25 Active doxepin (Silenor) 3 MG tablet Take 1 tablet (3 mg) by mouth at bedtime. 30 tablet 5 09/10/19 25 Discontinu ed(Ineffec tive) Active Problems Problem Noted Date Diagnosed Date Osteoarthritis of left shoulder 03/02/2024 Left hand pain 03/02/2024 Hospital discharge follow-up 03/02/2024 Overview (03/02/2024): [place] [facility]read[place] to x 1 day-biotics discharge p.o. antibiotics [...] Encounters Date Type Department Care Team Description 09/10/[address] [facility] [address] [place] [address] 15143 Martín Pittman MD Prior Authorization 09/09/2024 1:45 PM EDT Office Visit [facility] [address] [place] [address] 42337 Martín Pittman MD Right hip pain (Primary Dx); Chronic insomnia 09/09/2024 Travel 09/07/[address] [facility] [address] [place] [address] 80442 Martín Pittman MD Nurse Triage 09/02/2024 2:00 PM EDT Office Visit [facility] D[facility] [address] [place] [address] 52814 Kasia Maldonado Dental plaque (Primary Dx); Localized gingival recession, minimal; Missing teeth, acquired 09/02/[address] [facility] [address] [place] [address] 64235 Martín Pittman MD transfer Patient 09/01/[address] [facility] [address] [place] [address] 72742 Martín Pittman MD Prior Auth Prescription 08/31/[address] [facility] [address] [place] [address] 38410 Martín Pittman MD Chronic insomnia (Primary Dx) 08/27/[address] [facility] [address] [place] [address] 61773 Martín Pittman MD Prior Auth Prescription 08/24/[address] [facility] [address] [place] [address] 25902 Martín Pittman MD Medication Question 08/23/[address] [facility] [address] [place] [address] 46841 Martín Pittman MD Allergic rhinitis, unspecified seasonality, unspecified trigger 08/20/[address] [facility] [address] [place] [address] 46309 Martín Pittman MD Insomnia, unspecified type 07/20/[address] [facility] [address] [place] [address] 40318 Martín Pittman MD Durable Medical Equipment 07/19/2024 4:00 PM EST Office Visit [facility] [address] [place] [address] 76689 Martín Pittman MD Diverticulitis (Primary Dx); Flu vaccine refused; Primary osteoarthritis of right knee 07/19/[address] [facility] [address] [place] [address] 83414 Martín Pittman MD Insomnia, unspecified type 07/15/[address] [facility] [address] [place], [place] [phone] Martín Pittman MD chartprep 07/14/[address] [facility] [address] [place] [address] 92551 Martín Pittman MD ER Follow-up from Last 3 Months Immunizations Name Administration [...] Sign Reading Time Taken Comments Blood Pressure 122/81 09/09/2024 1:31 PM EDT Pulse 86 09/09/2024 1:31 PM EDT Temperature 36.4 ??C (97.6 ??F) 09/09/2024 1:31 PM ED T Respiratory Rate 18 09/09/2024 1:31 PM EDT Oxygen Saturation 97% 09/09/2024 1:31 PM EDT Inhaled Oxygen Concentration - - Weight 65.9 kg (145 lb 3.2 oz) 09/09/2024 1:31 P M EDT Height 149.9 cm (4' 11 ) 09/09/2024 1:31 PM EDT Body Mass Index 29.33 09/09/2024 1:31 PM EDT Plan of Treatment Upcoming Encounters Date Type Department Care Team (Late st Contact Info) Description 11/03/2024 3:45 PM EDT Office Visit [facility] [address] [place] [address] Name, MD Martín [address] [place] [address] 03/18/2025 10:00 AM EDT Office Visit [facility] [address] [place] [address] Kasia Maldonado [address] [place] [address] Health Maintenance Due Date Last Done Comments [...] 2024 01/30/2015, 2013 SDOH Screening 09/14/2024 09/15/2023 Dental X-Ray: Full Mouth 11/07/2024 11/06/2021 Dental Oral Exam 03/05/2025 09/02/2024, 10/2023, 08/12/2022 Dental Prophylaxis 03/05/2025 09/02/2024, 0 01/01/2024, 06/24/2023, Additional history exists Alcohol/Substance Use Screening 04/06/2025 04/06/2024 Depression Screening 04/06/2025 04/06/2024, 04/06/20 Dental X-Ray: Bitewings 09/03/2025 09/03/19, 06/24/2023, 08/12/2022 Tobacco Screening 09/09/2025 09/09/2024 DTaP/Tdap/Td Vaccines (2 - Td or Tdap) [...] Procedure Name Priority Date/Time Associated Diagnosis Comments XR HIP 2 OR 3 VIEWS RIGHT Routine 09/16/2024 11:45 AM EDT Right hip pain XR KNEE 4+ VIEWS RIGHT Routine 5 1:46 PM EDT US VENOUS DUPLEX LE RT Routine 1:45 PM EDT PERIODIC ORAL EVALUATION - ESTABLISHED PATIENT Routine [...] TO SLEEP MEDICINE Routine 08/09/2024 Hypersomnia Snoring BI MAMMOGRAM DIAGNOSTIC TOMOSYNTHESIS RIGHT Routine 06/23/2024 9:00 AM EST HEPATITIS C ANTIBODY Routine 05/10/2024 1:37 PM EST HM COLONOSCOPY Routine 08/12/2023 LIPID PANEL, STANDARD Routine 07/24/2022 9:07 AM EST Essential hypertension FECAL IMMUNOCHEMICAL Routine 07/15/2022 from Last 3 Months or Most Recently Relevant to Health Maintenance Results * XR Hip 2 or 3 Views Right (09/16/2024 11:45 AM EDT) Anatomical Region Laterality Modality Lower Extremities, Hip Right Radiograp hic Imaging 09/16/2024 11:4 5 AM EDT Narrative 09/16/2024 12:31 PM EDT ?[facility] ?[address] ?[place] [address] ?XRay Report ? Signed ? Patient: Raimundo Abdalla,Eduarda ?MR ?? #: [id number] ? : 1950 ?Acct:[id number] ? Age/Sex: 73 / F ?ADM Date: 09/16/24 ? Loc: HO.HHCX ? Attending Dr: Martín Pittman MD ? Ordering Physician: Martín Pittman MD ?? Date of Service: 09/16/24 ?? Procedure(s): XR hip RT min 2V ?? Accession Number(s): [id number] ? cc: Martín Pittman MD ? EXAMINATION: ??XR HIP 2 OR MORE VIEWS RIGHT ? HISTORY: One month of severe right hip pain and no history of trauma ? COMPARISON: Comparison is made with the prior examination dated ?? 03/02/2024. ? FINDINGS: ?? Two views of the left hip are submitted. ??Osseous ?? mineralization is normal. ??There is no fracture or dislocation. ??Again ?? seen is mild joint space narrowing. ??The soft tissues are unremarkable. ? XR/XR hip RT min 2V ?? IMPRESSION: ?? Mild joint space narrowing. ? Electronically signed by: ??Jaylon Schmitz MD ??09/16/2024 12:28 PM EDT ?? RP ? Dictated By: ?Jaylon Schmitz MD ? Signed By: ?<Electronically signed by Jaylon Schmitz MD in OV> ?09/16/24 1228 ? DD/ 1145 ? TD/TT: 09/16/24 1200 ? Graphic Art Sales Representative: ? Procedure Note Courtney Daugherty - 09/16/2024 [facility] [address] [place] [address] XRay Report Signed Patient: Wendie Faye MMR #: [id number] : 3Acct:[id number] Age/Sex: 73 / FADM Date: 09/16/24 Loc: HO.HHCX Attending Dr: Martín Pittman MD Ordering Physician: Martín Pittman MD Date of Service: 09/16/24 Procedure(s): XR hip RT min 2V Accession Number(s): [id number] cc: Martín Pittman MD EXAMINATION: XR HIP 2 OR MORE VIEWS RIGHT HISTORY: One month of severe right hip pain and no history of trauma COMPARISON: Comparison is made with the prior examination dated 03/02/2024. FINDINGS: Two views of the left hip are submitted. Osseous mineralization is normal. There is no fracture or dislocation. Again seen is mild joint space narrowing. The soft tissues are unremarkable. XR/XR hip RT min 2V IMPRESSION: Mild joint space narrowing. Electronically signed by: Jaylon Schmitz MD 09/16/2024 12:28 PM EDT Dictated By: Jaylon Schmitz MD Signed By: <Electronically signed by Jaylon Schmitz MD in OV> 09/16/24 1228 DD/ 1145 TD/TT: 09/16/24 1200 Graphic Art Sales Representative: Martín Pittman MD IMG XR PROCEDURES Final Result * XR Knee 4+ Views Right (09/05/2024 1:46 PM EDT) Anatomical Region Laterality Modality Lower Extremities, Knee Right Radiogra [facility] Imaging 09/05/2024 1:46 PM EDT Narrative 09/05/2024 1:48 PM EDT ? [facility] ?[address] ?[place] [address] ?XRay Report ? Signed ? Patient: Raimundo Abdalla,Eduarda ?MR ?? #: [id number] ? : 1950 ?Acct:[id number] ? Age/Sex: 73 / F ?ADM Date: 04/20/25 ? Loc: HO.ED ? Attending Dr: ? Ordering Physician: Suzanna Castro ?? Date of Service: 09/05/24 ?? Procedure(s): XR knee RT 4V ?? Accession Number(s): [id number] ? cc: Suzanna Castro; Name,Martín MARKS ? CLINICAL HISTORY: pain ? 4 view right knee ? Comparison: US - US VENOUS DUPLEX LE RT - 09/05/24 12:32 EDT ?? DX/MI - XR KNEE RT 3V - 07/15/24 14:29 EST ? Findings: ?? Bony alignment is anatomic. ?? No acute fracture. ?? Minor osteophyte formation without significant joint space narrowing. ?? No joint effusion. ? IMPRESSION: ?? 1. No acute findings. ? This document has been electronically signed by: Jonah Ying MD on ?? 09/05/2024 13:46:31 ? Dictated By: ?Jonah Ying MD ? Signed By: ?<Electronically signed by Jonah Ying MD in OV> ? 09/05/24 1347 ? DD/ 1346 ? TD/TT: 09/05/24 1346 ? Graphic Art Sales Representative: ? Procedure Note Courtney Daugherty - 09/05/[address] [address] XRay Report Signed Patient: Wendie Faye MMR #: [id number] : 3Acct:[id number] Age/Sex: 73 / FADM Date: 09/05/24 Loc: HO.ED Attending Dr: Ordering Physician: Suzanna Castro Date of Service: 09/05/24 Procedure(s): XR knee RT 4V Accession Number(s): [id number] cc: Suzanna Castro; Name,Martín MARKS CLINICAL HISTORY: pain 4 view right knee Comparison: US - US VENOUS DUPLEX LE RT - 09/05/24 12:32 EDT DX/MI - XR KNEE RT 3V - 07/15/24 14:29 EST Findings: Bony alignment is anatomic. No acute fracture. Minor osteophyte formation without significant joint space narrowing. No joint effusion. IMPRESSION: 1. No acute findings. This document has been electronically signed by: Jonah Ying MD on 09/05/2024 13:46:31 Dictated By: Jonah Ying MD Signed By: <Electronically signed by Jonah Ying MD in OV> 09/05/24 1347 DD/ 1346 TD/TT: 09/05/24 1346 Graphic Art Sales Representative: [facility] External Provider IMG XR PROCEDURES Final Result * US VENOUS DUPLEX LE RT (09/05/2024 1:45 PM EDT) Anatomical Region Laterality Modality Abdomen Ultrasound 09/05/2024 1:45 PM EDT Narrative 09/05/2024 1:47 PM EDT ? [facility] ?[address] ?[place] [address] ? Ultrasound Report ? Signed ? Patient: Raimundo Abdalla,Eduarda ?MR ?? #: [id number] ? : 1950 ?Acct:[id number] ? Age/Sex: 73 / F ?ADM Date: 09/05/24 ? Loc: HO.ED ? Attending Dr: ? Ordering Physician: Suzanna Castro ?? Date of Service: 09/05/24 ?? Procedure(s): US venous duplex LE RT ?? Accession Number(s): [id number] ? cc: Suzanna Castro; Name,Martín MARKS ? CLINICAL HISTORY: inner groin pain, recent surgery ? Venous duplex ultrasound right lower extremity ? Comparison: CR - XR KNEE RT - 09/05/24 12:09 EDT ? Findings: ?? The visualized deep veins are fully compressible with normal Doppler color ?? flow and spectral tracings. ?? No popliteal cyst. ? IMPRESSION: ?? 1. Negative for right lower extremity deep vein thrombosis. ? This document has been electronically signed by: Jonah Ying MD on ?? 09/05/2024 13:45:50 ? Dictated By: ?Jonah Ying MD ? Signed By: ?<Electronically signed by Jonah Ying MD in OV> ? 09/05/24 1346 ? DD/ 1345 ? TD/TT: 09/05/24 1345 ? Graphic Art Sales Representative: ? Procedure Note Willow, Courtney - 09/05/2024 [id number] [place] [address] Ultrasound Report Signed Patient: Wendie Faye MMR #: [id number] : 3Acct:[id number] Age/Sex: 73 / FADM Date: 09/05/24 Loc: HO.ED Attending Dr: Ordering Physician: Suzanna Castro Date of Service: 09/05/24 Procedure(s): US venous duplex LE RT Accession Number(s): [id number] cc: Suzanna Castro; Name,Martín MARKS CLINICAL HISTORY: inner groin pain, recent surgery Venous duplex ultrasound right lower extremity Comparison: CR - XR KNEE RT 4V - 09/05/24 12:09 EDT Findings: The visualized deep veins are fully compressible with normal Doppler color flow and spectral tracings. No popliteal cyst. IMPRESSION: 1. Negative for right lower extremity deep vein thrombosis. This document has been electronically signed by: Jonah Ying MD on 09/05/2024 13:45:50 Dictated By: Jonah Ying MD Signed By: <Electronically signed by Jonah Ying MD in OV> 09/05/24 1346 DD/ 1345 TD/TT: 09/05/24 1345 Graphic Art Sales Representative: [facility] External Provider IMG US PROCEDURES Final Result * Referral to Sleep Medicine (08/09/2024) Martín Pittman MD OUTPATIENT REFERRAL ORDERABLES F inal Result * BI Mammogram Diagnostic Tomosynthesis Right (06/23/2024 9:00 AM EST) Anatomical Region Laterality Modality Breast Right Mammography 06/23/2024 9:00 AM EST Narrative 06/23/2024 10:34 AM EST ? [facility] ? [address] ?[place] [address] ? Mammography Report ? Signed with Addenda ? Patient: Raimundo Abdalla,Eduarda ?MR ?? #: [id number] ? : 1950 ?Acct:[id number] ? Age/Sex: 73 / F ?ADM Date: 02/05/25 ? Loc: HO.MAMMO ? Attending Dr: Tim Cifuentes MD ? Ordering Physician: Tim Cifuentes MD ?Results: ? Date of Service: 06/23/24 ?Follow Up: ? Procedure(s): MM tomosynthesis diagnostic RT ?? Accession Number(s): [id number] ? cc: Tim Cifuentes MD; Martín Pittman [...] DD/ 0900 ? TD/TT: 06/23/24 0945 ? Graphic Art Sales Representative: ? Procedure Note Willow, Image - 07/02/2024 [facility] [address] [place] [address] Dr. [place], [place]IE [address] Mammography Report Signed with Eric Patient: Wendie Faye MMR #: [id number] : 3Acct:[id number] Age/Sex: 73 / FADM Date: 06/23/24 Loc: HO.MAMMO Attending Dr: Tim Cifuentes MD Ordering Physician: Tim Cifuentes MDResults: Date of Service: 06/23/24Follow Up: Procedure(s): MM tomosynthesis diagnostic RT Accession Number(s): [id number] cc: Tim Cifuentes MD; Name,Martín MARKS ADDENDUM [...] 06/23/24 1030 DD/ 0900 TD/TT: 06/23/24 0945 Graphic Art Sales Representative: [facility] External Provider IMG BI PROCEDURES Edited Result - Final * Hepatitis C Ab (05/10/2024 1:37 PM EST) Pathologist [facility] Hepatitis C Antibody Nonreactive Nonreactive [facility] Comment:Antibodies to HCV no t detected; does not exclude early acuteHCV infection. 05/10/2024 1:37 PM EST 05/10/2024 4:01 PM EST Generic External Data Provider LAB BLOOD ORDERAB LES Final Result [facility] [address] [place] [address] [phone] * (ABNORMAL) Colonoscopy (08/12/2023) Pathologist [facility] Colonoscopy Abnormal(A ) Normal Martín Pittman MD HEALTH MAINTENANCE Final Result * (ABNORMAL) Lipid Panel, Standard (07/24/2022 9:07 AM EST) Pathologist [facility] Cholesterol, Total 206(H) <200 mg/dL [facility] HDL Cholesterol 40(L) > OR = 50 mg/dL [facility] Triglycerides 252(H) <150 mg/dL [facility] Comment: If a non-fasting specimen was collected, consider repeat triglyceride testing on a fasting specimen if clinically indicated. Arian et al. J. of Clin. Lipidol. 2015;9:129-169. LDL Cholesterol 127(H) mg/dL (calc) [facility] Comment: Reference range: <100 Desirable range <100 mg/dL for primary prevention; ?? <70 mg/dL for patients with CHD or diabetic patients with > or = 2 CHD risk factors. LDL-C is now calculated using the Amy calculation, which is a validated novel method providing better accuracy than the Friedewald equation in the estimation of LDL-C. James GREENWOOD et al. SHEREE. 2013;310(19): 6464-0403 (http://education.[employer]/faq/HVJ956) Chol/HDLC Ratio 5.2(H) <5.0 (calc) [facility] Non-HDL Cholesterol 166(H) <130 mg/dL (calc) [facility] Comment: For patients with diabetes plus 1 major ASCVD risk factor, treating to a non-HDL-C goal of <100 mg/dL (LDL-C of <70 mg/dL) is considered a therapeutic option. Blood Venous blood specimen / Unknown 07/24/2022 9:07 AM EST 07/24/2022 9:08 AM EST Narrative [facility] - 07/24/2022 9:39 PM EST FASTING:NO FASTING: NO Martín Name LAB BLOOD ORDERABLES Final Resul t [facility] [address] [facility], [place] [address] [facility] [address] [facility], ([address]) [place] [address] * Fecal immunochemical (07/15/2022) Fecal Immunoassay Test (External) Negative Stool Rectal contents / Unknown Historical Provider LAB BODY FLUIDS AND STOOL S ORDERABLES Final Result from Last 3 Months or Most Recently Relevant to Health Maintenance Insurance [facility] (HMO D-SNP) [place] [id number] [facility] Care Teams Salesperson Flowers Relationship Specialty Start Date End Date Name, MD Martín [address] [facility] [place] [address] PCP - General Family Medicine 07/18/15
--- OUTSIDE RECORDS SUMMARY | 2024-09-27 14:01 | XMS_ITS | Encounter Summary ---
Author Organization [employer] Address [address] [facility] 7t [place] [address] Care Team Providers Care Night Monitor Name Role Phone Name, Martín MARKS Primary Care Provider [phone] Reason for Visit * Reason Onset Date Comments Med Refill 10/21/2022 Encounter Details Date Type Department Care Team (Late st Contact Info) Description 10/21/2022 Refill [facility] [address] [place], [place] [phone] Name, MD Martín [address] [place] [address] Insomnia, unspecified type Social History Tobacco Use [...] Description 11/03/2024 3:45 PM EDT Office Visit [facility] [address] [place] [address] Name, MD Martín [address] [place] [address] 03/18/2025 10:00 AM EDT Office Visit [facility] ADULT DENTAL [address] [place] [address] Kasia Maldonado [address] [place] [address] documented as of this encounter Visit Diagnoses Diagnosis Insomnia, unspecified type documented in this encounter Care Teams Night Monitor Relationship Specialty Start Date End Date Name, MD Martín [address] [place] [phone] PCP - General Family Medicine 07/18/15 documented as of this encounter
--- OUTSIDE RECORDS SUMMARY | 2024-09-27 14:01 | XMS_ITS | Encounter Summary ---
Author Organization [employer] Address [address] [facility] 7t [place] [address] Care Team Providers Care Technician Plant And Maintenance Name Role Phone Name, Martín MARKS Primary Care Provider [phone] Encounter Details Date Type Department Care Team (Latest Contact Info) Description 07/26/2019 Abstract [facility] CONVERSIONS Dental, Provider, DDS Social [...] Description 11/03/2024 3:45 PM EDT Office Visit [facility] [address] [place] [address] NameMartín MD [address] [place] [address] 03/18/2025 10:00 AM EDT Office Visit [facility] ADULT DENTAL [address] [place] [address] Long Maldonado[address] [place] [address] documented as of this encounter Visit Diagnoses Not on filedocumented in this encounter Care Teams Technician Plant And Maintenance Relationship Specialty Start Date End Date NameMartín MD [address] [place] [address] PCP - General Family Medicine 07/18/15 documented as of this encounter
--- OUTSIDE RECORDS SUMMARY | 2024-09-27 14:01 | XMS_ITS | Encounter Summary ---
Author Organization [employer] Address [address] [facility] 7t [place] [address] Care Team Providers Care Harnessmaker Name Role Phone Name, Martín MARKS Primary Care Provider [phone] Reason for Visit * Reason Comments Med Refill Encounter Details Date Type Department Care Team (Late st Contact Info) Description 09/25/2022 Refill [facility] [address] [place] [phone] NameMartín MD [address] [place] [address] [phone] Insomnia, unspecified type Social History Tobacco Use [...] EDT Office Visit [facility] [address] [place] [address] [phone] Name, MD Martín [address] [place] [address] 03/18/2025 10:00 AM EDT Office Visit [facility] ADULT DENTAL [address] [place] [address] Kasia Maldonado [address] [place] [address] documented as of this encounter Visit Diagnoses Diagnosis Insomnia, unspecified type documented in this encounter Care Teams Harnessmaker Relationship Specialty Start Date End Date Name, MD Martín [address] [place] [address] PCP - General Family Medicine 07/18/15 documented as of this encounter
--- OUTSIDE RECORDS SUMMARY | 2024-09-27 14:01 | XMS_ITS | Encounter Summary ---
Author Organization [employer] Address [address] [facility] 7t [place] [address] Care Team Providers Care Insurance Premium Auditor Name Role Phone Name, Martín MARKS Primary Care Provider [phone] Encounter Details Date Type Department Care Team (Latest Contact Info) Description 11/01/2021 Abstract [facility] CONVERSIONS Dental, [...] Description 11/03/2024 3:45 PM EDT Office Visit [facility] [address] [place] [address] NameMartín MD [address] [place] [address] 03/18/2025 10:00 AM EDT Office Visit [facility] ADULT DENTAL [address] [place] [address] Kasia Maldonado [address] [place] [address] documented as of this encounter Visit Diagnoses Not on filedocumented in this encounter Care Teams Insurance Premium Auditor Relationship Specialty Start Date End Date Martín Pittman MD [address] [place] [address] PCP - General Family Medicine 07/18/15 documented as of this encounter
--- OUTSIDE RECORDS SUMMARY | 2024-09-27 14:02 | XMS_ITS | Encounter Summary ---
Author Organization [employer] Address 75 [facility] 7t [place] [address] Care Team Providers Care Machinist Set Up Name Role Phone Name, Martín MARKS Primary Care Provider [phone] Reason for Visit * Reason Onset Date Comments Hospital Follow-up 04/12/2024 Encounter Details Date Type Department Care Team ([facility] st Contact Info) Description 04/12/2024 Telephone [facility] MEDICINE [address] [place], [place] [phone] Name, MD Martín [address] [place] [address] Hospital Follow-up Social History Tobacco Use Types [...] from pt requesting a HDF appt. [place] [facility] [place]: 04/07/24 Discharge date: 04/12/24 Diagnosed: intestinal infection *Send message to [place] Clinical Care Coordinators documented in this encounter Plan of Treatment Upcoming Encounters Date Type Department Care Team (Late st Contact Info) Description 11/03/2024 3:45 PM EDT Office Visit [facility] MEDICINE [address] [place] [address] NameMartín MD [address] [place] [address] 03/18/2025 10:00 AM EDT Office Visit [facility] ADULT DENTAL [address] [place] [address] Kasia Maldonado [address] [place] [address] documented as of this encounter Visit Diagnoses Not on filedocumented in this encounter Additional Health Concerns Assessment Noted Time PHQ-9 Depression Total Score: 22 024 11:54 AM EST documented as of this encounter Care Teams Machinist Set Up Relationship Specialty Start Date End Date NameMartín MD [address] [place] [address] PCP - General Family Medicine 07/18/15 documented as of this encounter
--- OUTSIDE RECORDS SUMMARY | 2024-09-27 14:02 | XMS_ITS | Encounter Summary ---
Author Organization [employer] Address 75 [facility] 7t [place] [address] Care Team Providers Care Senior Web Engineer Name Role Phone Name, Martín MARKS Primary Care Provider [phone] Reason for Visit * Reason Comments Med Refill Encounter Details Date Type Department Care Team ([facility] st Contact Info) Description 01/21/2024 Refill [facility] MEDICINE [address] [place], [place] [phone] Name, MD Martín [address] [place] [address] Insomnia, unspecified type Social History Tobacco Use [...] 3:45 PM EDT Office Visit [facility] MEDICINE [address] [place] [address] NameMartín MD [address] [place] [address] 03/18/2025 10:00 AM EDT Office Visit [facility] ADULT DENTAL [address] [place] [address] Erica, Kasia [address] [place] [address] documented as of this encounter Visit Diagnoses Diagnosis Insomnia, unspecified type documented in this encounter Additional Health Concerns Assessment Noted Time PHQ-9 Depression Total Score: 10 024 1:21 PM EDT documented as of this encounter Care Teams Senior Web Engineer Relationship Specialty Start Date End Date Name, MD Martín [address] [place] [address] PCP - General Family Medicine 07/18/15 documented as of this encounter
== END 2024-09-27 14:53 | disposition home or self-care (01) ==
LOC: HO.HCS 13:43
PROVIDERS: PCP Internal Medicine Geriatric Medicine; Visit Provider Internal Medicine
DX: I10 Essential (primary) hypertension (principal); I77.810 Thoracic aortic ectasia
CPT/HCPCS: 99213

== ENCOUNTER → 2024-09-27 13:42 | Outpatient (BNVA) | payer OTHER, SELFPAY | PROVIDERS: PCP Internal Medicine Geriatric Medicine; Visit Provider Internal Medicine | DX: I10 Essential (primary) hypertension (principal); I77.810 Thoracic aortic ectasia | CPT/HCPCS: 99212 ==

== ENCOUNTER 2024-09-29 10:38 | Outpatient (AMB) | payer OTHER, SELFPAY ==
--- NOTE | 2024-09-29 10:40 | MHC.OFFVIS ---
Vital Signs 09/29/24 10:48 Height 4 ft 11 in Weight 146 lb BMI 29.5 BP 138/78 Blood Pressure Location Lt brachial Position Sitting Pulse 97 Intake Visit Reasons: one month s/p sigmoid resection Intake Note: Patient is seen in office for one month follow up visit, post sigmoid resection. Pt c/o: denies any concerns Yellow Pages Space Salesperson Required: No Accompanied by: Self / Same As Patient Allergies No Known Allergies Allergy (Verified 09/29/24 10:46) HPI HPI one month s/p sigmoid resection: Details: Patient reports she is doing well she has no concerns at this time. States that sometimes she feels intermittent pain with ambulation around the incision sites. States she is having good soft bowel movements, she denies blood in her stool. She has been tolerating full diet, has been trying to have smaller meals and stay well hydrated. She denies any heavy lifting strenuous activity, she feels comfortable beginning to advance her activity as tolerated. [facility] Medical History Fatty liver Snores Breast mass, right Diverticular disease Hospital discharge follow-up Acute diverticulitis Hypertension Syncope and collapse Tendonitis Arthritis Right knee pain Left hand pain Surgical History History of colon resection (08/17/24) Hx of right breast biopsy (06/23/24) Hx of hysterectomy Hx of hemorrhoidectomy Hx of colonoscopy History of hand surgery Status post hardware removal Family History Mother Alzheimer disease Hypertension Dementia Father Hypertension Social History Household Members: Spouse Housing: House Are you a primary pet care technician to a significant other at home: No Do you presently have visiting nurse or other home services: Yes Alcohol intake: never Comment: pt refused bed alarm Patient Tobacco Use Status: Never used Tobacco e-Cigarette/Vaping Use: Never Used service: No Current occupational status: retired Current occupation: rt handed Physical Exam Vital Signs: Last Vital Signs Pulse 97 09/29/24 10:48 BP 138/78 09/29/24 10:48 BMI result Body Mass Index 29.5 Const General: healthy appearing, comfortable and no acute distress Orientation/consciousness: patient oriented x3 Resp Effort & Inspection: normal respiratory effort and able to speak in complete sentences GI Other: The incision sites are clean and intact well healed at this point no signs of infection Inspection: No distended Palpation (GI): Soft to palpation, not firm, Tenderness to palpation present (GI) (Mild tenderness between midline inches insight and left lower quadrant port), no guarding and not rigid Neuro General: patient oriented x3 Assessment & Plan Assessment & Plan (1) S/P colon resection: Comment: Hand assisted laparoscopic sigmoid resection, mobilization of the splenic flexure, end-to-end anastomosis, extensive lysis of adhesions; intraop flexible sigmoidoscopy. Code(s): Z90.49 - Acquired absence of other specified parts of digestive tract Category: Surgical Plan 73-year-old female status post hand assisted laparoscopic sigmoid resection on 08/17/2024 presenting to the office for routine follow-up. Patient doing well. She is experiencing some mild incisional site pain with ambulation. Bowel function adequate. Abdominal exam largely benign, patient experiencing expected appropriate incisional site pain. Incision sites are clean and intact no signs of infection. We discussed returning to activity. Patient is okay to advance activity restrictions to full activity as tolerated. We will schedule follow-up for six-month postop, patient can follow-up as needed with any questions or concerns Coding Level of Care Code Global (83409) Diagnoses S/P colon resection Z90.49
[2024-09-29 10:48] VITALS: BP 138/78; PULSE 97; BMI 29.5
--- OUTSIDE RECORDS SUMMARY | 2024-09-29 11:40 | XMS_ITS | Encounter Summary ---
Author Organization [employer] Address 75 [facility] 7t [place] [address] Care Team Providers Care Data Processing Supervisor Name Role Phone Name, Martín MARKS Primary Care Provider [phone] Encounter Details Date Type Department Care Team (Late Contact Info) Description 10/28/2022 Abstract [facility] MEDICINE [address] [place] [address] NameMartín MD [address] [place] [address] Social History Tobacco Use Types Packs/Day Years [...] Description 11/03/2024 3:45 PM EDT Office Visit [facility] MEDICINE [address] [place] [address] [phone] NameMartín MD [address] [place] [address] 03/18/2025 10:00 AM EDT Office Visit [facility] ADULT DENTAL [address] [place] [address] [phone] Kasia Maldonado 230 [place] [address] documented as of this encounter Visit Diagnoses Not on filedocumented in this encounter Care Teams Data Processing Supervisor Relationship Specialty Start Date End Date Name, MD Martín [address] [place] [address] PCP - General Family Medicine 07/18/15 documented as of this encounter
--- OUTSIDE RECORDS SUMMARY | 2024-09-29 11:40 | XMS_ITS | Encounter Summary ---
Author Organization [employer] Address [address] [facility] 7t [place] [address] Care Team Providers Care Equity Research Analyst Name Role Phone Name, Martín MARKS Primary Care Provider [phone] Reason for Visit * Reason Comments Med Refill Encounter Details Date Type Department Care Team (Late st Contact Info) Description 09/25/2022 Refill [facility] MEDICINE [address] [place] [address] NameMartín MD [address] [place] [address] [phone] Insomnia, unspecified type Social History Tobacco Use [...] Description 11/03/2024 3:45 PM EDT Office Visit [facility] MEDICINE [address] [place] [address] [phone] Name, MD Martín [address] [place] [address] 03/18/2025 10:00 AM EDT Office Visit [facility] ADULT DENTAL 230 [place] [address] Kasia Maldonado 230 [place] [address] documented as of this encounter Visit Diagnoses Diagnosis Insomnia, unspecified type documented in this encounter Care Teams Equity Research Analyst Relationship Specialty Start Date End Date Name, MD Martín 230 [place] [address] PCP - General Family Medicine 07/18/15 documented as of this encounter
--- OUTSIDE RECORDS SUMMARY | 2024-09-29 11:40 | XMS_ITS | Encounter Summary ---
Author Organization [employer] Address 75 [facility] 7t [place] [address] Care Team Providers Care Broadcast Systems Engineer Name Role Phone Name, Martín MARKS Primary Care Provider [phone] Encounter Details Date Type Department Care Team (Latest Contact Info) Description 07/26/2019 Abstract [facility] Dental, Provider, DDS Social [...] Description 11/03/2024 3:45 PM EDT Office Visit [facility] MEDICINE [address] [place] [address] NameMartín MD [address] [place] [address] 03/18/2025 10:00 AM EDT Office Visit [facility] ADULT DENTAL [address] [place] [address] Long Maldonadoaris [address] [place] [address] documented as of this encounter Visit Diagnoses Not on filedocumented in this encounter Care Teams Broadcast Systems Engineer Relationship Specialty Start Date End Date NameMartín MD [address] [place] [address] PCP - General Family Medicine 07/18/15 documented as of this encounter
--- OUTSIDE RECORDS SUMMARY | 2024-09-29 11:40 | XMS_ITS | Encounter Summary ---
Author Organization [employer] Address 75 [facility] 7t [place] [address] Care Team Providers Care Dance Studio Manager Name Role Phone Name, Martín MARKS Primary Care Provider [phone] Reason for Visit * Reason Onset Date Comments Med Refill 10/21/2022 Encounter Details Date Type Department Care Team (Late st Contact Info) Description 10/21/2022 Refill [facility] MEDICINE [address] [place], [place] [phone] Name, MD Martín [address] [place] [address] Insomnia, unspecified type Social History Tobacco Use [...] Description 11/03/2024 3:45 PM EDT Office Visit [facility] MEDICINE [address] [place] [address] Name, MD Martín [address] [place] [address] 03/18/2025 10:00 AM EDT Office Visit [facility] ADULT DENTAL [address] [place] [address] Kasia Maldonado [address] [place] [address] documented as of this encounter Visit Diagnoses Diagnosis Insomnia, unspecified type documented in this encounter Care Teams Dance Studio Manager Relationship Specialty Start Date End Date Name, MD Martín [address] [place] [address] PCP - General Family Medicine 07/18/15 documented as of this encounter
--- OUTSIDE RECORDS SUMMARY | 2024-09-29 11:40 | XMS_ITS | Clinical Summary ---
Author Organization [employer] Address 75 [facility] 7t [place] [address] Care Team Providers Care Animal Trainer Name Role Phone Name, Martín MARKS Primary Care Provider [phone] Allergies No known active allergies Medications atorvastatin [...] discharge follow-up 03/02/2024 Overview (03/02/2024): D/C from [facility]--readmitted to x 1 day-biotics [...] Type Department Care Team Description 09/10/2024 Telephone [facility] MEDICINE [address] [place] [address] Martín Pittman MD Prior Authorization 09/09/2024 1:45 PM EDT Office Visit [facility] MEDICINE [address] [place] [address] Martín Pittman MD Right hip pain (Primary Dx); Chronic insomnia 09/09/2024 Travel 09/07/2024 Telephone [facility] MEDICINE [address] [place] [address] Martín Pittman MD Nurse Triage 09/02/2024 2:00 PM EDT Office Visit [facility] ADULT DENTAL [address] [place] [address] Kasia Maldonado Dental plaque (Primary Dx); Localized gingival recession, minimal; Missing teeth, acquired 09/02/2024 Telephone [facility] MEDICINE [address] [place] [address] Martín Pittman MD transfer Patient 09/01/2024 Telephone [facility] MEDICINE [address] [place] [address] Martín Pittman MD Prior Auth Prescription 08/31/2024 Orders Only [facility] MEDICINE [address] [place] [address] Martín Pittman MD Chronic insomnia (Primary Dx) 08/27/2024 Telephone [facility] MEDICINE [address] [place] [address] Martín Pittman MD Prior Auth Prescription 08/24/2024 Telephone [facility] MEDICINE [address] [place] [address] Martín Pittman MD Medication Question 08/23/2024 Refill [facility] MEDICINE [address] [place] [address] Martín Pittman MD Allergic rhinitis, unspecified seasonality, unspecified trigger 08/20/2024 Refill [facility] MEDICINE [address] [place] [address] Martín Pittman MD Insomnia, unspecified type 07/20/2024 Telephone [facility] MEDICINE [address] [place] [address] Martín Pittman MD Durable Medical Equipment 07/19/2024 4:00 PM EST Office Visit [facility] MEDICINE [address] [place] [address] Martín Pittman MD Diverticulitis (Primary Dx); Flu vaccine refused; Primary osteoarthritis of right knee 07/19/2024 Refill [facility] MEDICINE [address] [place] [address] Martín Pittman MD Insomnia, unspecified type 07/15/2024 Telephone [facility] MED & PEDS [address] [place], [place] [phone] Martín Pittman MD chartprep 07/14/2024 Telephone [facility] MEDICINE [address] [place] [address] Martín Pittman MD ER Follow-up from Last 3 Months Immunizations Immunization Administration Dates Next Due Hep A, Adult [...] Description 11/03/2024 3:45 PM EDT Office Visit [facility] MEDICINE [address] [place] [address] Name, MD Martín [address] [place] [address] 03/18/2025 10:00 AM EDT Office Visit [facility] ADULT DENTAL [address] [place] [address] Kasia Maldonado [address] [place] [address] Health Maintenance Due Date Last Done Comments [...] AM EDT Narrative 09/16/2024 12:31 PM EDT ?[facility] ?[address] ?[place] [address] ?XRay Report ? Signed ? Patient: Raimundo Abdalla,Eduarda ?MR ?? #: [id number] ? : 1950 ?Acct:[id number] ? Age/Sex: 73 / F ?ADM Date: 09/16/24 ? Loc: HO.HHCX ? Attending Dr: Martín Pittman MD ? Ordering Physician: Martín Pittman MD ?? Date of Service: 09/16/24 ?? Procedure(s): XR hip RT min 2V ?? Accession Number(s): [id number] ? cc: Martín Pittman MD ? EXAMINATION: [...] DD/ 1145 ? TD/TT: 09/16/24 1200 ? Marketing Segment Manager: ? Procedure Note Courtney Daugherty - 09/16/2024 [facility] [address] [place] [address] XRay Report Signed Patient: Wendie Faye MMR #: [id number] : 3Acct:[id number] Age/Sex: 73 / FADM Date: 09/16/24 Loc: HO.HHCX Attending Dr: Martín Pittman MD Ordering Physician: Martín Pittman MD Date of Service: 09/16/24 Procedure(s): XR hip RT min 2V Accession Number(s): [id number] cc: Martín Pittman MD EXAMINATION: XR HIP [...] 09/16/24 1228 DD/ 1145 TD/TT: 09/16/24 1200 Marketing Segment Manager: Martín Pittman MD IMG XR PROCEDURES Final Result * XR Knee 4+ Views Right (09/05/2024 1:46 PM EDT) Anatomical Region Laterality Modality Lower Extremities, Knee Right [facility] Imaging 09/05/2024 1:46 PM EDT Narrative 09/05/2024 1:48 PM EDT ? [facility] ?[address] ?[place] [address] ?XRay Report ? Signed ? Patient: Raimundo Abdalla,Eduarda ?MR ?? #: [id number] ? : 1950 ?Acct:[id number] ? Age/Sex: 73 / F ?ADM Date: 04/20/25 ? Loc: HO.ED ? Attending Dr: ? Ordering Physician: Suzanna Castro ?? Date of Service: 09/05/24 ?? Procedure(s): XR knee RT 4V ?? Accession Number(s): [id number] ? cc: Suzanna Castro; Name,Martín MARKS ? CLINICAL HISTORY: pain ? 4 view right knee ? Comparison: US - US VENOUS DUPLEX LE RT - 09/05/24 12:32 EDT ?? DX/CT - XR KNEE RT 3V - 07/15/24 [...] DD/ 1346 ? TD/TT: 09/05/24 1346 ? Marketing Segment Manager: ? Procedure Note Courtney Daugherty - 09/05/[address] [address] XRay Report Signed Patient: Wendie Faye MMR #: [id number] : 3Acct:[id number] Age/Sex: 73 / FADM Date: 09/05/24 Loc: HO.ED Attending Dr: Ordering Physician: Suzanna Castro Date of Service: 09/05/24 Procedure(s): XR knee RT 4V Accession Number(s): [id number] cc: Suzanna Castro; Name,Martín MARKS CLINICAL HISTORY: pain 4 view right knee Comparison: US - US VENOUS DUPLEX LE RT - 09/05/24 12:32 EDT DX/CT - XR KNEE RT 3V - 07/15/24 [...] 09/05/24 1347 DD/ 1346 TD/TT: 09/05/24 1346 Marketing Segment Manager: [facility] External Provider IMG XR PROCEDURES Final Result * US VENOUS DUPLEX LE RT (09/05/2024 1:45 PM EDT) Anatomical Region Laterality Modality Abdomen Ultrasound 09/05/2024 1:45 PM EDT Narrative 09/05/2024 1:47 PM EDT ? [facility] ?[address] ?[place] [address] ? Ultrasound Report ? Signed ? Patient: Raimundo Abdalla,Eduarda ?MR ?? #: [id number] ? : 1950 ?Acct:[id number] ? Age/Sex: 73 / F ?ADM Date: 09/05/24 ? Loc: HO.ED ? Attending Dr: ? Ordering Physician: Suzanna Castro ?? Date of Service: 09/05/24 ?? Procedure(s): US venous duplex LE RT ?? Accession Number(s): [id number] ? cc: Suzanna Castro; Name,Martín MARKS ? [...] DD/ 1345 ? TD/TT: 09/05/24 1345 ? Marketing Segment Manager: ? Procedure Note Willow, Courtney - 09/05/2024 [address] [place] [place] [address] Ultrasound Report Signed Patient: Wendie Faye MMR #: [id number] : 3Acct:[id number] Age/Sex: 73 / FADM Date: 09/05/24 Loc: HO.ED Attending Dr: Ordering Physician: Suzanna Castro Date of Service: 09/05/24 Procedure(s): US venous duplex LE RT Accession Number(s): [id number] cc: Suzanna Castro; Name,Martín MARKS CLINICAL HISTORY: [...] 09/05/24 1346 DD/ 1345 TD/TT: 09/05/24 1345 Marketing Segment Manager: [facility] External Provider IMG US PROCEDURES Final Result * Referral to Sleep Medicine (08/09/2024) Martín Pittman MD OUTPATIENT REFERRAL ORDERABLES F inal Result * BI Mammogram Diagnostic Tomosynthesis Right (06/23/2024 9:00 AM EST) Anatomical Region Laterality Modality Breast Right Mammography 06/23/2024 9:00 AM EST Narrative 06/23/2024 10:34 AM EST ? [facility] ? [address] ?[place] [address] ? Mammography Report ? Signed with Addenda ? Patient: Raimundo Abdalla,Eduarda ?MR ?? #: [id number] ? : 1950 ?Acct:[id number] ? Age/Sex: 73 / F ?ADM Date: 02/05/25 ? Loc: HO.MAMMO ? Attending Dr: Tim Cifuentes MD ? Ordering Physician: Tim Cifuentes MD ?Results: ? Date of Service: 06/23/24 ?Follow Up: ? Procedure(s): MM tomosynthesis diagnostic RT ?? Accession Number(s): [id number] ? cc: Tim Cifuentes MD; Martín Pittman [...] EST ?? RP ? Dictated By: ?Reina Rdo DO ? Signed By: ?<Electronically signed by Reina Rod DO in OV> ? 06/23/24 1030 ? DD/ 0900 ? TD/TT: 06/23/24 0945 ? Marketing Segment Manager: ? Procedure Note Willow, Image - 07/02/2024 [facility] [address] [place] [address] Dr. [place], TESSIE [address] Mammography Report Signed with Eric Patient: Wendie Faye MMR #: [id number] : 3Acct:[id number] Age/Sex: 73 / FADM Date: 06/23/24 Loc: HO.MAMMO Attending Dr: Tim Cifuentes MD Ordering Physician: Tim Cifuentes MDResults: Date of Service: 06/23/24Follow Up: Procedure(s): MM tomosynthesis diagnostic RT Accession Number(s): [id number] cc: Tim Cifuentes MD; Name,Martín MARKS ADDENDUM [...] 06/23/24 1030 DD/ 0900 TD/TT: 06/23/24 0945 Marketing Segment Manager: [facility] External Provider IMG BI PROCEDURES Edited Result - Final * Hepatitis C Ab (05/10/2024 1:37 PM EST) Pathologist [facility] Hepatitis C Antibody Nonreactive Nonreactive [facility] Comment:Antibodies to HCV no t detected; does not exclude early acuteHCV infection. 05/10/2024 1:37 PM EST 05/10/2024 4:01 PM EST Generic External Data Provider LAB BLOOD ORDERAB LES Final Result [facility] [address] [place] [address] [phone] * (ABNORMAL) Colonoscopy (08/12/2023) Pathologist [facility] Colonoscopy Abnormal(A ) Normal Martín Pittman MD HEALTH MAINTENANCE Final Result * (ABNORMAL) Lipid Panel, Standard (07/24/2022 9:07 AM EST) Pathologist [facility] Cholesterol, Total 206(H) <200 mg/dL [facility] [place] [facility] HDL Cholesterol 40(L) > OR = 50 mg/dL [facility] [place] [facility] Triglycerides 252(H) <150 mg/dL [facility] [place] [facility] Comment: If a non-fasting specimen was collected, consider repeat triglyceride testing on a fasting specimen if clinically indicated. Arian et al. J. of Clin. Lipidol. 2015;9:129-169. LDL Cholesterol 127(H) mg/dL (calc) [facility] [place] [facility] Comment: Reference range: <100 Desirable range <100 mg/dL for primary prevention; ?? <70 mg/dL for patients with CHD or diabetic patients with > or = 2 CHD risk factors. LDL-C is now calculated using the Amy calculation, which is a validated novel method providing better accuracy than the Friedewald equation in the estimation of LDL-C. James GREENWOOD et al. SHEREE. 2013;310(19): 0809-3202 (http://education.[employer]/faq/KBK477) Chol/HDLC Ratio 5.2(H) <5.0 (calc) [facility] [place] [facility] Non-HDL Cholesterol 166(H) <130 mg/dL (calc) [facility] [place] [facility] Comment: For patients with diabetes plus 1 major ASCVD risk factor, treating to a non-HDL-C goal of <100 mg/dL (LDL-C of <70 mg/dL) is considered a therapeutic option. Blood Venous blood specimen / Unknown 07/24/2022 9:07 AM EST 07/24/2022 9:08 AM EST Narrative [facility] - 07/24/2022 9:39 PM EST FASTING:NO FASTING: NO Martín Name LAB BLOOD ORDERABLES Final Resul t [facility] [address] [facility], [place] [address] [facility] [place] [facility] [address] [facility], ([address]) [place] [address] * Fecal immunochemical (07/15/2022) Fecal Immunoassay Test (External) Negative Stool Rectal contents / Unknown Historical Provider LAB BODY FLUIDS AND STOOL S ORDERABLES Final Result from Last 3 Months or Most Recently Relevant to Health Maintenance Insurance [facility] USP OPTIONS (HMO D-SNP) YOON MARES [id number] [facility] Care Teams Animal Trainer Relationship Specialty Start Date End Date Name, MD Martín [address] [facility] [place] [address] PCP - General Family Medicine 07/18/15
--- OUTSIDE RECORDS SUMMARY | 2024-09-29 11:40 | XMS_ITS | Encounter Summary ---
Author Organization [employer] Address [address] [facility] [address] 7t [place] [address] Care Team Providers Care Critical Power Install Technician Name Role Phone Name, Martín MARKS Primary Care Provider [phone] Encounter Details Date Type Department Care Team (Late st Contact Info) Description 03/07/2023 Orders Only [facility] [address] [place], [place] [phone] Geno Malave LPN Social History Tobacco Use [...] 11/03/2024 3:45 PM EDT Office Visit [facility] [address] [place] [address] Name, MD Martín [address] [place] [address] 03/18/2025 10:00 AM EDT Office Visit [facility] [address] [place] [address] Kasia Maldonado [address] [place] [address] documented as of this encounter Procedures Procedure Name Priority Date/Time Associated Diagnosis Comments BI MAMMOGRAM SCREENING TOMOSYNTHESIS BILATERAL Routine 03/11/2023 2:45 PM EDT documented in this encounter Results * BI Mammogram Screening Tomosynthesis Bilateral (03/11/2023 2:45 PM EDT) Anatomical Region Laterality Modality Breast Bilateral Mammography 03/11/2023 2:45 PM EDT Narrative 03/29/2023 1:32 PM EST ? [facility] [place] ? [address] [facility] ?[place] [address] ? Mammography Report ? Signed ? Patient: Raimundo Abdalla,Eduarda ?MR ?? #: [id number] ? : 1950 ?Acct:[id number] ? Age/Sex: 72 / F ?ADM Date: 10/24/23 ? Loc: HO.MAMMO ? Attending : Martín Pittman MD ? Ordering Physician: Toya,Martín MARKS ?Results: 1Negative ? Date of Service: 03/11/23 ?Follow Up: 1 Year From Orig ?? inal Mammogram ? Procedure(s): MM tomosynthesis screening BI ?? Accession Number(s): [id number] ? cc: Toya,Martín MARKS ? EXAMINATION: ?? [...] ? DD/DT: 03/11/ 1445 ? TD/TT: ? Cyber Security Systems Engineer: ? Procedure Note Donotuseinterpreter, Image - 03/29/2023 [facility] [address] [place] [address] [place] [address] Mammography Report Signed Patient: Wendie Faye MMR #: [id number] : 3Acct:[id number] Age/Sex: 72 / FADM Date: 03/11/23 Loc: HO.MAMMO Attending Dr: Martín Pittman MD Ordering Physician: Martín Pittman MDResults: 1Negative Date of Service: 03/11/23Follow Up: 1 Year From Orig inal Mammogram Procedure(s): MM tomosynthesis screening BI Accession Number(s): [id number] cc: Martín Pittman MD EXAMINATION: MM SCREENING [...] in OV> 03/29/23 1329 DD/ 1445 TD/TT: Cyber Security Systems Engineer: Martín Pittman MD IMG BI PROCEDURES Edited Result - Final documented in this encounter Visit Diagnoses Not on filedocumented in this encounter Care Teams Critical Power Install Technician Relationship Specialty Start Date End Date Name, MD Martín [address] [place] [address] PCP - General Family Medicine 07/18/15 documented as of this encounter
--- OUTSIDE RECORDS SUMMARY | 2024-09-29 11:40 | XMS_ITS | Encounter Summary ---
Author Organization [employer] Address 75 [facility] 7t [place] [address] Care Team Providers Care Barrel Tester Name Role Phone Name, Martín MARKS Primary Care Provider [phone] Encounter Details Date Type Department Care Team (Late st Contact Info) Description 03/25/2023 Orders Only [facility] MEDICINE [address] [place], [place] [phone] Name, MD Martín [address] [place] [address] Social History Tobacco Use Types Packs/Day Years [...] 3:45 PM EDT Office Visit [facility] MED[facility]INE [address] [place] [address] Name, MD Martín [address] [place] [address] 03/18/2025 10:00 AM EDT Office Visit [facility] ADULT DENTAL [address] [place] [address] Kasia Maldonado [address] [place] [address] documented as of this encounter Visit Diagnoses Not on filedocumented in this encounter Care Teams Barrel Tester Relationship Specialty Start Date End Date Name, MD Martín [address] [place] [address] PCP - General Family Medicine 07/18/15 documented as of this encounter
--- OUTSIDE RECORDS SUMMARY | 2024-09-29 11:40 | XMS_ITS | Encounter Summary ---
Author Organization [employer] Address 75 [facility] 7t [place] [address] Care Team Providers Care Prevention Rn Name Role Phone Name, Martín MARKS Primary Care Provider [phone] Encounter Details Date Type Department Care Team (Latest Contact Info) Description 11/01/2021 Abstract [facility] CONVERSIONS Dental, Provider, DDS Social [...] EDT Office Visit [facility] MEDICINE [address] [place] [address] NameMartín MD [address] [place] [address] 03/18/2025 10:00 AM EDT Office Visit [facility] ADULT DENTAL [address] [place] [address] Kasia Maldonado [address] [place] [address] documented as of this encounter Visit Diagnoses Not on filedocumented in this encounter Care Teams Prevention Rn Relationship Specialty Start Date End Date Martín Pittman MD [address] [place] [address] PCP - General Family Medicine 07/18/15 documented as of this encounter
--- OUTSIDE RECORDS SUMMARY | 2024-09-29 11:40 | XMS_ITS | Encounter Summary ---
Author Organization [employer] Address 75 [facility] 7t [place] [address] Care Team Providers Care Athlete Manager Name Role Phone Name, Martín MARKS Primary Care Provider [phone] Reason for Visit * Reason Comments Med Refill Encounter Details Date Type Department Care Team (Late st Contact Info) Description 07/26/2022 Refill [facility] MEDICINE [address] [place] [address] [phone] Name, MD Martín [address] [place] [address] [phone] Insomnia, unspecified type Social History Tobacco Use [...] Description 11/03/2024 3:45 PM EDT Office Visit [facility] MEDICINE [address] [place] [address] [phone] Name, MD Martín [address] [place] [address] [phone] 03/18/2025 10:00 AM EDT Office Visit [facility] ADULT DENTAL [address] [place] [address] Kasia Maldonado [address] [place] [address] documented as of this encounter Visit Diagnoses Diagnosis Insomnia, unspecified type documented in this encounter Care Teams Athlete Manager Relationship Specialty Start Date End Date Name, MD Martín [address] [place] [address] PCP - General Family Medicine 07/18/15 documented as of this encounter
--- OUTSIDE RECORDS SUMMARY | 2024-09-29 11:40 | XMS_ITS | Encounter Summary ---
Author Organization [employer] Address 75 [facility] 7t [place] [address] Care Team Providers Care Flower Stripper Name Role Phone Name, Martín MARKS Primary Care Provider [phone] Reason for Visit * Reason Comments Med Refill Encounter Details Date Type Department Care Team ([facility] st Contact Info) Description 05/24/2023 Refill [facility] MEDICINE [address] [place], [place] [phone] Name, MD Martín [address] [place] [address] Allergic rhinitis, unspecified seasonality, unspecified trigger Social [...] Description 11/03/2024 3:45 PM EDT Office Visit [facility] MEDICINE [address] [place] [address] NameMartín MD [address] [place] [address] 03/18/2025 10:00 AM EDT Office Visit [facility] ADULT DENTAL [address] [place] [address] Kasia Maldonado [address] [place] [address] documented as of this encounter Visit Diagnoses Diagnosis Allergic rhinitis, unspecified seasonality, unspecified trigger documented in this encounter Care Teams Flower Stripper Relationship Specialty Start Date End Date NameMartín MD [address] [place] [address] PCP - General Family Medicine 07/18/15 documented as of this encounter
--- OUTSIDE RECORDS SUMMARY | 2024-09-29 11:40 | XMS_ITS | Encounter Summary ---
Author Organization [employer] Address 75 [facility] 7t [place] [address] Care Team Providers Care Complaints Coordinator Name Role Phone Name, Martín MARKS Primary Care Provider [phone] Encounter Details Date Type Department Care Team (Latest Contact Info) Description 11/06/2020 Abstract [facility] CONVERSIONS [...] 3:45 PM EDT Office Visit [facility] MEDICINE [address] [place] [address] NameMartín MD [address] [place] [address] 03/18/2025 10:00 AM EDT Office Visit [facility] ADULT DENTAL [address] [place] [address] Kasia Maldonado [address] [place] [address] documented as of this encounter Visit Diagnoses Not on filedocumented in this encounter Care Teams Complaints Coordinator Relationship Specialty Start Date End Date Martín Pittman MD [address] [place] [address] PCP - General Family Medicine 07/18/15 documented as of this encounter
--- OUTSIDE RECORDS SUMMARY | 2024-09-29 11:41 | XMS_ITS | Encounter Summary ---
Author Organization [employer] Address 75 [facility] 7t [place] [address] Care Team Providers Care Champion Of Sustainable Design Name Role Phone Name, Martín MARKS Primary Care Provider [phone] Reason for Visit * Reason Comments Med Refill Encounter Details Date Type Department Care Team ([facility] st Contact Info) Description 01/21/2024 Refill [facility] MEDICINE [address] [place], [place] [phone] Name, MD Martín [address] [place] [address] Insomnia, unspecified type Social History Tobacco Use [...] Description 11/03/2024 3:45 PM EDT Office Visit [facility] MEDICINE [address] [place] [address] NameMartín MD [address] [place] [address] 03/18/2025 10:00 AM EDT Office Visit [facility] ADULT DENTAL [address] [place] [address] Erica, Kasia [address] [place] [address] documented as of this encounter Visit Diagnoses Diagnosis Insomnia, unspecified type documented in this encounter Additional Health Concerns Assessment Noted Time PHQ-9 Depression Total Score: 10 024 1:21 PM EDT documented as of this encounter Care Teams Champion Of Sustainable Design Relationship Specialty Start Date End Date Name, MD Martín [address] [place] [address] PCP - General Family Medicine 07/18/15 documented as of this encounter
--- OUTSIDE RECORDS SUMMARY | 2024-09-29 11:41 | XMS_ITS | Encounter Summary ---
Author Organization [employer] Address 75 [facility] 7t [place] [address] Care Team Providers Care Embossing Clerk Name Role Phone Name, Martín MARKS Primary Care Provider [phone] Reason for Visit * Reason Onset Date Comments Med Refill 07/22/2023 Encounter Details Date Type Department Care Team (Late st Contact Info) Description 07/22/2023 Telephone [facility] MEDICINE [address] [place], [place] [phone] Name, MD Martín [address] [place] [address] Med Refill Social History Tobacco Use Types [...] 10 MG tablet To be sent to: [facility]/pharmacy [address] [place] [address] documented in this encounter Plan of Treatment Upcoming Encounters Date Type Department Care Team (Late st Contact Info) Description 11/03/2024 3:45 PM EDT Office Visit [facility] MED[facility]INE [address] [place] [address] Name, MD Martín [address] [place] [address] 03/18/2025 10:00 AM EDT Office Visit [facility] ADULT DENTAL [address] [place] [address] Kasia Maldonado [address] [place] [address] documented as of this encounter Visit Diagnoses Not on filedocumented in this encounter Care Teams Embossing Clerk Relationship Specialty Start Date End Date Name, MD Martín [address] [place] [address] PCP - General Family Medicine 07/18/15 documented as of this encounter
--- OUTSIDE RECORDS SUMMARY | 2024-09-29 11:41 | XMS_ITS | Encounter Summary ---
Author Organization [employer] Address 75 [facility] 7t [place] [address] Care Team Providers Care Coiler Name Role Phone Name, Martín MARKS Primary Care Provider [phone] Reason for Visit * Reason Comments Med Refill Encounter Details Date Type Department Care Team ([facility] st Contact Info) Description 04/09/2023 Refill [facility] MEDICINE [address] [place], [place] [phone] Name, MD Martín [address] [place] [address] Social History Tobacco Use Types Packs/Day Years [...] Description 11/03/2024 3:45 PM EDT Office Visit [facility] MEDICINE [address] [place] [address] Name, MD Martín [address] [place] [address] 03/18/2025 10:00 AM EDT Office Visit [facility] ADULT DENTAL [address] [place] [address] Kasia Maldonado [address] [place] [address] documented as of this encounter Visit Diagnoses Not on filedocumented in this encounter Care Teams Coiler Relationship Specialty Start Date End Date Name, MD Martín [address] [place] [address] PCP - General Family Medicine 07/18/15 documented as of this encounter
--- OUTSIDE RECORDS SUMMARY | 2024-09-29 11:41 | XMS_ITS | Encounter Summary ---
Author Organization [employer] Address 75 [facility] 7t [place] [address] Care Team Providers Care Radiation Protection Technician Name Role Phone Name, Martín MARKS Primary Care Provider [phone] Reason for Visit * Reason Onset Date Comments Call Back Request 07/11/2023 Encounter Details Date Type Department Care Team ([facility] st Contact Info) Description 07/11/2023 Telephone [facility] MEDICINE [address] [place], [place] [phone] Name, MD Martín [address] [place] [address] Call Back Request Social History Tobacco Use [...] T/C to pt. For below [place] [employer] [place] - [id number], pt. States she has already apt. For CT scan, pt. Is all set right now. Advised to give call to [facility] if any question or concerns. * Telephone Encounter - Sharon Langford - 07/11/2023 11:45 AM EST Tc from pt requesting order for ct scan on left hand stated talk with PCP about this please contactpt for clarifications. documented in this encounter Plan of Treatment Upcoming Encounters Date Type Department Care Team (Late st Contact Info) Description 11/03/2024 3:45 PM EDT Office Visit [facility] MEDICINE [address] [place] [address] NameMartín MD [address] [place] [address] 03/18/2025 10:00 AM EDT Office Visit [facility] ADULT DENTAL [address] [place] [address] Kasia Maldonado [address] [place] [address] documented as of this encounter Visit Diagnoses Not on filedocumented in this encounter Care Teams Radiation Protection Technician Relationship Specialty Start Date End Date Martín Pittman MD [address] [place] [address] PCP - General Family Medicine 07/18/15 documented as of this encounter
--- OUTSIDE RECORDS SUMMARY | 2024-09-29 11:41 | XMS_ITS | Encounter Summary ---
Author Organization [employer] Address 75 [facility] 7t [place] [address] Care Team Providers Care Live In Caregiver Name Role Phone Name, Martín MARKS Primary Care Provider [phone] Reason for Visit * Reason Onset Date Comments Hospital Follow-up 04/12/2024 Encounter Details Date Type Department Care Team ([facility] st Contact Info) Description 04/12/2024 Telephone [facility] MEDICINE [address] [place], [place] [phone] Name, MD Martín [address] [place] [address] Hospital Follow-up Social History Tobacco Use Types [...] from pt requesting a HDF appt. Hospital: [facility] Date of admission: 04/07/24 Discharge date: 04/12/24 Diagnosed: intestinal infection *Send message to [place] Clinical Care Coordinators documented in this encounter Plan of Treatment Upcoming Encounters Date Type Department Care Team (Late st Contact Info) Description 11/03/2024 3:45 PM EDT Office Visit [facility] MEDICINE [address] [place] [address] NameMartín MD [address] [place] [address] 03/18/2025 10:00 AM EDT Office Visit [facility] ADULT DENTAL [address] [place] [address] Kasia Maldonado [address] [place] [address] documented as of this encounter Visit Diagnoses Not on filedocumented in this encounter Additional Health Concerns Assessment Noted Time PHQ-9 Depression Total Score: 22 024 11:54 AM EST documented as of this encounter Care Teams Live In Caregiver Relationship Specialty Start Date End Date NameMartín MD [address] [place] [address] PCP - General Family Medicine 07/18/15 documented as of this encounter
== END 2024-09-29 11:03 | disposition home or self-care (01) ==
LOC: HO.HGS 10:38
PROVIDERS: PCP Internal Medicine Geriatric Medicine
DX: Z90.49 Acquired absence of other specified parts of digestive tract (principal)
CPT/HCPCS: 99024

== ENCOUNTER → 2024-09-29 10:38 | Outpatient (BNVA) | payer OTHER, SELFPAY | PROVIDERS: PCP Internal Medicine Geriatric Medicine | DX: Z48.815 Encounter for surgical aftercare following surgery on the digestive system (principal); Z90.49 Acquired absence of other specified parts of digestive tract | CPT/HCPCS: 99212 ==

== ENCOUNTER 2024-11-01 12:13 | Emergency (ER) | payer OTHER, SELFPAY ==
--- NOTE | ~2024-11-01 | XR_ITS ---
EXAMINATION: XR KNEE, RIGHT CLINICAL INFORMATION: pain, injury COMPARISON: September 05, 2024. TECHNIQUE: AP, oblique and lateral views of the right knee. FINDINGS: No acute cortical disruption or alignment. No lytic or blastic lesions. No suprapatellar bursa joint effusion. No metallic or radiopaque foreign body. No subcutaneous emphysema. XR/XR knee RT 3V IMPRESSION: No acute fracture or dislocation. Stable. Electronically signed by: Domingo Ibarra MD 11/01/2024 01:29 PM EDT
--- NOTE | ~2024-11-01 | XR_ITS ---
EXAMINATION: XR HIP, RIGHT CLINICAL INFORMATION: pain COMPARISON: September 16, 2024. TECHNIQUE: Two views of the right hip. AP view pelvis. FINDINGS: No acute cortical disruption or malalignment. Subchondral cyst formation and sclerosis along the articular surface of the acetabulum and to a lesser extent femoral head. No lytic or blastic lesions. The bony pelvis intact. Degenerative changes in the left coxofemoral joint.. XR/XR hip RT w PEL1V IMPRESSION: Mild osteoarthrosis without acute fracture or dislocation. Electronically signed by: Domingo Ibarra MD 11/01/2024 01:27 PM EDT
[2024-11-01 12:20] VITALS: BP 146/85; PULSE 75; RESP 18; TEMP 36.3; O2SAT 99; BMI 29.3
--- NOTE | 2024-11-01 12:21 | ED.GENADULT ---
HPI - General Adult General Chief complaint: Extremity Injury, Lower Stated complaint: body leg pain Time Seen by Provider: 11/01/24 13:59 Source: patient and family ( spouse) Mode of arrival: ambulatory Limitations: no limitations History of Present Illness ED Provider: DR. Garcia HPI narrative: a 73-year-old female PMH of HTN, OA came in for evaluation of right hip and right knee pain for few weeks, no known injury or trauma, patient was seen and evaluated in the emergency department for similar symptoms in the past and wishes discharge on oxycodone, patient has an appointment with orthopedic next month. Patient is still able to ambulate and bear weight on her right lower extremities. No fever, no chills, no falls, no trauma. Related Data Home Medications ?Medication ?Instructions ?Recorded ?Confirmed loratadine 10 mg tablet 10 mg PO DAILY PRN Allergy Symptoms 03/26/24 09/27/24 clonazepam 1 mg tablet 0.5 mg PO BEDTIME 08/09/24 09/27/24 pantoprazole 20 mg tablet,delayed 20 mg PO DAILY@0630 08/17/24 09/27/24 release Previous Rx's ?Medication ?Instructions ?Recorded docusate sodium 100 mg capsule 100 mg PO BID #30 caps 08/20/24 (Colace) losartan 25 mg tablet 25 mg PO DAILY #90 tabs 08/23/24 acetaminophen 650 mg 650 mg PO Q8H PRN pain #30 tabs 09/05/24 tablet,extended release (Tylenol 8 Hour) oxycodone 5 mg tablet 5 mg PO Q6H PRN severe pain (scale 09/05/24 score 7-10) #10 tabs oxycodone 5 mg tablet 5 mg PO Q8H PRN pain #10 tabs 11/01/24 Allergies Allergy/AdvReac Type Severity Reaction Status Date / Time No Known Allergies Allergy Verified 11/01/24 12:22 Review of Systems Review of Systems: All other systems are reviewed and are negative Constitutional: Reports as per HPI and Reports no additional constitutional complaints Eyes: Reports as per HPI and Reports no additional eye complaints Reports system reviewed and no additional complaints, except as documented Cardiovascular: Reports as per HPI and Reports no additional cardiovascular complaints Respiratory: Reports as per HPI and Reports no additional respiratory complaints Gastrointestinal: Reports as per HPI and Reports no additional gastrointestinal complaints Genitourinary: Reports no additional female genitourinary complaints Musculoskeletal: Reports no additional musculoskeletal complaints Skin/Breast: Reports system reviewed and no additional complaints, except as docu Psychiatric: Reports no additional psychiatric complaints Endocrine: Reports no additional endocrine complaints Hematologic/Lymphatic: Reports no additional hematologic/lymphatic complaints Allergic/Immunologic: Reports no additional allergic/immunologic complaints Reports system reviewed and no additional complaints, except as documented and Reports Abnormal speech present [facility] Past Medical History Medical History Fatty liver Snores Breast mass, right Diverticular disease Hospital discharge follow-up Acute diverticulitis Hypertension Syncope and collapse Tendonitis Arthritis Right knee pain Left hand pain Surgical History History of colon resection (08/17/24) Hx of right breast biopsy (06/23/24) Hx of hysterectomy Hx of hemorrhoidectomy Hx of colonoscopy History of hand surgery Status post hardware removal Family History Family History Mother Alzheimer disease Hypertension Dementia Father Hypertension Social History Social History Household Members: Spouse Housing: House Are you a primary home health care respiratory therapist to a significant other at home: No Do you presently have visiting nurse or other home services: Yes Alcohol intake: never Comment: pt refused bed alarm Patient Tobacco Use Status: Never used Tobacco e-Cigarette/Vaping Use: Never Used Advance Directives: Yes Advance Directives Information Provided: Yes Advance Directives on File: No service: No Current occupational status: retired Current occupation: rt handed Physical Exam ED Vital Signs: Vital Signs - 24 hr 11/01/24 12:20 Temperature 97.4 F Pulse Rate 75 Respiratory Rate 18 Blood Pressure 146/85 H Pulse Oximetry 99 Oxygen Delivery Method Room Air BMI result Body Mass Index 29.3 Vital signs have been reviewed and appear to be correct. Blood pressure elevated. Heart rate normal. Respiratory rate normal. Temperature normal. Oxygen saturation normal. Appearance: Alert. Oriented X3. No acute distress. Head: Normal external exam. Normocephalic. Atraumatic. No [place] signs noted. No raccoon eyes noted Eyes: PERRLA. EOMI. Conjunctiva and sclera normal. Eyelids normal. ENT: TM's Normal. Pharynx normal. Uvula midline. Moist mucous membranes. No trismus noted. No drooling noted. No muffled voice noted. Neck: Normal inspection. Neck supple. FROM. No adenopathy. Thyroid Normal. No meningeal signs. No neck mass noted. CVS: Normal heart rate and rhythm. Heart sound normal. No murmurs noted. Pulses normal throughout. Respiratory: No respiratory distress. Painless inspiration. Breath sounds normal. No wheezes/rales/rhonchi noted. Chest nontender. No accessory muscle usage noted or decreased air movement noted. Abdomen: Soft and nontender. Bowel sounds normal in all 4 quadrants. No distention noted. No organomegaly noted. No visible injury noted. Back: No CVA tenderness. Full range of motion noted. Skin: Skin warm and dry. Normal skin color. Normal skin turgor. No rashes/lesions/lacerations noted. Extremities: Right lower extremity exam: Mild tenderness on right a hip region with no deformity or step-off, FROM, neurovascularly intact, no edema or swelling. Neuro: Oriented X 3. Cranial nerve exam: II-XII are grossly intact No motor deficit. No sensory deficit. Reflexes normal. Course Course Course Narrative: RME performed by Merna Abraham PA-C. Patient is a 73 year old assigned female at presenting to the emergency department with right knee and hip pain. Patient states that she has known arthritis in the right knee and hip and does not have an appointment with orthopedics for awhile. Detailed physical exam and review of systems are deferred to the cardio clinician. Imaging ordered. Patient placed back in the waiting room pending room availability and results. Reevaluation(s) Reevaluation #1: Acute on chronic right hip /right knee pain likely secondary to chronic arthritis. Will discharge the patient on oxycodone. Keep the appointment with ortho. No fever, no chills, no cellular a change making septic arthritis is unfavorable diagnosis. Time: 14:21 Medical Decision Making Differential Diagnosis Differential Diagnoses: The differential diagnosis associated with the presentation includes ( Acute on chronic arthritis, acute injury or fracture, septic arthritis, Neurovascularly intact.) Admission/Observation Consideration of admission/observation: Escalation of care including admission/observation considered Independent Interpretation I performed an independent interpretation of an: Plain X-Ray ( Right hip /right knee x-ray:No acute fracture or dislocation. Stable.) Radiology Impression Discussion of test interpretation with radiology: I have reviewed the radiologist's reading. Discharge Plan Discharge Clinical Impression: Arthritis of right hip, Arthritis of right knee, Arthralgia Patient Disposition: Home, Self-Care Instructions: Arthralgia (ED) Prescriptions: New oxycodone 5 mg tablet 5 mg PO Q8H PRN (Reason: pain) Qty: 10 0RF Rx Instructions: Partial Fill upon patient request. No Action losartan 25 mg tablet 25 mg PO DAILY Qty: 90 3RF acetaminophen [Tylenol 8 Hour] 650 mg tablet extended release 650 mg PO Q8H PRN (Reason: pain) Qty: 30 0RF oxycodone 5 mg tablet 5 mg PO Q6H PRN (Reason: severe pain (scale score 7-10)) Qty: 10 0RF Rx Instructions: Partial Fill upon patient request. clonazepam 1 mg Tablet 0.5 mg PO BEDTIME pantoprazole 20 mg tablet,delayed release (DR/EC) 20 mg PO DAILY@0630 docusate sodium [Colace] 100 mg capsule 100 mg PO BID Qty: 30 0RF loratadine 10 mg tablet 10 mg PO DAILY PRN (Reason: Allergy Symptoms) Referrals: Name,MD Martín [Primary Care Provider] - Fabian Jimenez MD [Physician] - Print Language: Ivorian
[2024-11-01] MEDS: oxyCODONE HCl Immed Release 5 MG TABLET PO (14:34)
[2024-11-01 14:38] VITALS: BP 132/70; PULSE 78; RESP 17; TEMP 36.1; O2SAT 99
== END 2024-11-01 14:39 | disposition home or self-care (01) ==
PROVIDERS: Emergency Provider Emergency Medicine; PCP Internal Medicine Geriatric Medicine
DX: M16.11 Unilateral primary osteoarthritis, right hip (principal); M17.11 Unilateral primary osteoarthritis, right knee; M25.551 Pain in right hip; M25.561 Pain in right knee; Z79.899 Other long term (current) drug therapy
CPT/HCPCS: 73502; 73562; 99283; 99284

== ENCOUNTER → 2024-11-01 12:24 | Outpatient (BNV) | payer OTHER, SELFPAY | PROVIDERS: Emergency Provider Emergency Medicine; PCP Internal Medicine Geriatric Medicine; Visit Provider Radiology Diagnostic Radiology | DX: M25.551 Pain in right hip (principal); S80.911A Unspecified superficial injury of right knee, initial encounter; M25.561 Pain in right knee | CPT/HCPCS: 73502; 73562 ==

== ENCOUNTER 2024-11-24 13:12 | Outpatient (AMB) | payer OTHER, SELFPAY ==
--- NOTE | 2024-11-24 13:20 | MHC.OFFVIS ---
Intake Visit Reasons: OV - right knee OA, last injection 02/23/21 Intake Note: Wendie is a 74 year old female who presents today for a follow up of her Right Knee OA, last inj 07/15/24. Patient reports her last injection didn't give her relief and she would to know what other treratment option she can get to relief her pain. Benefits Specialist Recruiter Required: Yes Benefits Specialist Recruiter Services: Benefits Specialist Recruiter Present (Christelle farrismilagro Sotelo ([id number])) Benefits Specialist Recruiter Name: Christelle Sotelo ([id number]) Allergies No Known Allergies Allergy (Verified 11/24/24 13:28) HPI HPI OV - right knee OA, last injection 02/23/21: Details: Ms. Raimundo Abdalla is a 74-year-old female who presents to the office today for chronic right knee pain due to osteoarthritis. Her last cortisone injection was on 02/23/2021. She is looking to repeat the injection today. [facility] Medical History Fatty liver Snores Breast mass, right Diverticular disease Hospital discharge follow-up Acute diverticulitis Hypertension Syncope and collapse Tendonitis Arthritis Right knee pain Left hand pain Surgical History History of colon resection (08/17/24) Hx of right breast biopsy (06/23/24) Hx of hysterectomy Hx of hemorrhoidectomy Hx of colonoscopy History of hand surgery Status post hardware removal Family History Mother Alzheimer disease Hypertension Dementia Father Hypertension Social History Household Members: Spouse Housing: House Are you a primary clinical manager home care to a significant other at home: No Do you presently have visiting nurse or other home services: Yes Alcohol intake: never Comment: pt refused bed alarm Patient Tobacco Use Status: Never used Tobacco e-Cigarette/Vaping Use: Never Used service: No Current occupational status: retired Current occupation: rt handed Review of Systems Const All systems reviewed & are unremarkable except as noted in HPI and below Physical Exam Const General: cooperative, healthy appearing and no acute distress Resp Effort & Inspection: normal respiratory effort and able to speak in complete sentences Extrem Other: Right knee normal to inspection no ecchymosis, erythema or joint effusion. Full knee range of motion. Tenderness to palpation lateral joint line. NVI. Office Procedures AMB Joint Injection/Aspiration Joint Injection/Aspiration Primary Site: right knee Prep: site was prepped using aseptic technique, ethochloride spray was applied and injection warnings given Injected: 80 mg of, with 8 mL of (2% plain lidocaine) and in the joint Approach Used: anterolateral Procedure: The patient tolerated the procedure well, but had some pain with the injection and there was some relief with the local anesthesia Coding - Large joint Procedure code (CPT) selection complete Assessment & Plan Assessment & Plan (1) Osteoarthritis of left knee: Code(s): M17.12 - Unilateral primary osteoarthritis, left knee Category: Medical Plan The patient was offered a cortisone injection in the right knee with 80 mg of DepoMedrol. The patient was explained the risks, benefits, and alternatives to receiving this injection. After receiving consent for the injection, the patient had the procedure done while in the office today. The patient tolerated the procedure well with no complications. Follow-up will be PRN, or sooner if needed Coding Level of Care Code Est Pt Level 3 (88889) Diagnoses Osteoarthritis of left knee M17.12 CPT Codes Coding - Large joint: 27117 - Large joint ([id number])
--- OUTSIDE RECORDS SUMMARY | 2024-11-24 14:02 | XMS_ITS | Encounter Summary ---
Author Organization [employer] Address [address] [facility] [facility] [address] [place] [address] Care Team Providers Care Aviation All Source Intelligence Name Role Phone Name, Martín MARKS Primary Care Provider [phone] Encounter Details Date Type Department Care Team ([facility] st Contact Info) Description 03/07/2023 Orders Only [facility] CHC MED & PEDS [address] [place], [place] [phone] Geno Malave LPN Social History Tobacco Use [...] Care Team (Late st Contact Info) Description 02/14/2025 1:30 PM EDT Office Visit [facility] MEDICINE [address] [place] [address] Martín Pittman MD [address] [place] [address] 03/18/2025 10:00 AM EDT Office Visit [facility] ADULT DENTAL [address] [place] [address] Kasia Maldonado [address] [place] [address] documented as of this encounter Procedures Procedure Name Priority Date/Time Associated Diagnosis Comments BI MAMMOGRAM SCREENING TOMOSYNTHESIS BILATERAL Routine 03/11/2023 2:45 PM EDT documented in this encounter Results * BI Mammogram Screening Tomosynthesis Bilateral (03/11/2023 2:45 PM EDT) Anatomical Region Laterality Modality Breast Bilateral Mammography 03/11/2023 2:45 PM EDT Narrative 03/29/2023 1:32 PM [facility] [address] [place] [address] Mammography Report Signed Patient: Wendie Faye MR #: [id number] : 1950 Acct:[id number] Age/Sex: 72 / F ADM Date: 03/11/23 Loc: [facility] Attending Dr: Martín Pittman MD Ordering Physician: Martín Pittman MD Results: 1Negative Date of Service: 03/11/23 Follow Up: 1 Year From Orig inal Mammogram Procedure(s): MM tomosynthesis screening BI Accession Number(s): [id number] cc: Martín Pittman MD EXAMINATION: MM SCREENING [...] in OV> 03/29/23 1329 DD/ 1445 TD/TT: Accounting Director: Procedure Note Donotuseinterpreter, Image - 03/29/2023 [facility] [address] [place] [address] Mammography Report Signed Patient: Wendie Faye MMR #: [id number] : 3Acct:[id number] Age/Sex: 72 / FADM Date: 03/11/23 Loc: [facility] Attending Dr: Martín Pittman MD Ordering Physician: Martín Pittman MDResults: 1Negative Date of Service: 03/11/23Follow Up: 1 Year From Orig inal Mammogram Procedure(s): MM tomosynthesis screening BI Accession Number(s): [id number] cc: Martín Pittman MD EXAMINATION: MM SCREENING [...] in OV> 03/29/23 1329 DD/ 1445 TD/TT: Accounting Director: Martín Pittman MD IM BI PROCEDURES Edited Result - Final documented in this encounter Visit Diagnoses Not on filedocumented in this encounter Care Teams Aviation All Source Intelligence Relationship Specialty Start Date End Date Name, MD Martín [address] [place] [address] PCP - General Family Medicine 07/18/15 documented as of this encounter
--- OUTSIDE RECORDS SUMMARY | 2024-11-24 14:03 | XMS_ITS | Patient Health Record ---
Author Organization [employer] Address [address] [place] [phone] Care Team Providers Care Sciences Dean Name Role Phone Jaylon Matias Unavailable [phone] Reason For Referral No Information Plan Of Treatment No Information
== END 2024-11-24 13:54 | disposition home or self-care (01) ==
LOC: HO.HOS 13:13
PROVIDERS: PCP Internal Medicine Geriatric Medicine; Visit Provider Physician Assistant
DX: M17.11 Unilateral primary osteoarthritis, right knee (principal)
CPT/HCPCS: 20610; 99213

== ENCOUNTER → 2024-11-24 13:12 | Outpatient (BNVA) | payer OTHER, SELFPAY | PROVIDERS: PCP Internal Medicine Geriatric Medicine; Visit Provider Physician Assistant | DX: M17.11 Unilateral primary osteoarthritis, right knee (principal) | CPT/HCPCS: 20610; 99212; J1010; J2003 ==

== ENCOUNTER 2024-12-23 10:45 | Outpatient (REF) | payer OTHER, SELFPAY ==
--- NOTE | ~2024-12-23 | XR_ITS ---
CLINICAL HISTORY: M25.559 - Pain in unspecified hip 1 view pelvis Comparison: CR/SR - XR HIP 1 VIEW RIGHT WITH PELVIS - 11/01/24 13:17 EDT Findings: No acute fracture or dislocation. Periarticular osteophyte formation at the bilateral hip joints. Soft tissues are unremarkable. IMPRESSION: 1. No acute findings. This document has been electronically signed by: Rod Alfaro MD on 12/23/2024 16:49:53
== END 2024-12-23 10:46 | disposition home or self-care (01) ==
LOC: HO.HOSX 10:45
PROVIDERS: Visit Provider Physician Assistant
DX: M16.11 Unilateral primary osteoarthritis, right hip (principal)
CPT/HCPCS: 72170; 99212

== ENCOUNTER 2024-12-23 13:24 | Outpatient (AMB) | payer OTHER, SELFPAY ==
--- OUTSIDE RECORDS SUMMARY | 2024-12-23 13:27 | XMS_ITS | Encounter Summary ---
Author Organization [employer] Address [address] [facility] [address] [place] [address] Care Team Providers Care Seamark Advanced Operator Maintainer Name Role Phone Name, Martín MARKS Primary Care Provider Encounter Details Date Type Department Care Team ([facility] st Contact Info) Description 03/07/2023 Orders Only [facility] CHC MED & PEDS [address] [place], [place] [phone] Geno Malave LPN Social History Tobacco Use [...] Description 02/14/2025 1:30 PM EDT Office Visit [facility] MEDICINE [address] [place] [address] Martín Pittman MD [address] [place] [address] 03/18/2025 10:00 AM EDT Office Visit [facility] ADULT DENTAL [address] [place] [address] Kasia Maldonado [address] [place] [address] documented as of this encounter Procedures Procedure Name Priority Date/Time Associated Diagnosis Comments BI MAMMOGRAM SCREENING TOMOSYNTHESIS BILATERAL Routine 03/11/2023 2:45 PM EDT documented in this encounter Results * BI Mammogram Screening Tomosynthesis Bilateral (03/11/2023 2:45 PM EDT) Anatomical Region Laterality Modality Breast Bilateral Mammography 03/11/2023 2:45 PM EDT Narrative 03/29/2023 1:32 PM [facility] [address] [place] [address] Mammography Report Signed Patient: Wendie Faye MR #: [id number] : 1950 Acct:[id number] Age/Sex: 72 / F ADM Date: 03/11/23 Loc: [facility] Attending Dr: Martín Pittman MD Ordering Physician: Martín Pittman MD Results: 1Negative Date of Service: 03/11/23 Follow Up: 1 Year From Orig inal Mammogram Procedure(s): MM tomosynthesis screening BI Accession Number(s): [id number] cc: Martín Pittman MD EXAMINATION: MM SCREENING [...] in OV> 03/29/23 1329 DD/ 1445 TD/TT: Network Development Coordinator: Procedure Note Donotuseinterpreter, Image - 03/29/2023 [facility] [address] [place] [address] Mammography Report Signed Patient: Wendie Faye MMR #: [id number] : 3Acct:[id number] Age/Sex: 72 / FADM Date: 03/11/23 Loc: REN[facility] Attending Dr: Martín Pittman MD Ordering Physician: Martín Pittman MDResults: 1Negative Date of Service: 03/11/23Follow Up: 1 Year From Orig inal Mammogram Procedure(s): MM tomosynthesis screening BI Accession Number(s): [id number] cc: Martín Pittman MD EXAMINATION: MM SCREENING [...] in OV> 03/29/23 1329 DD/ 1445 TD/TT: Network Development Coordinator: Martín Pittman MD IM BI PROCEDURES Edited Result - Final documented in this encounter Visit Diagnoses Not on filedocumented in this encounter Care Teams [employer] Advanced Operator Maintainer Relationship Specialty Start Date End Date Name, MD Martín [address] [place] [address] PCP - General Family Medicine 07/18/15 documented as of this encounter
--- OUTSIDE RECORDS SUMMARY | 2024-12-23 13:27 | XMS_ITS | Patient Health Record ---
Author Organization [facility] Address [address] [place] [id number] Care Team Providers Care Operational Risk Manager Name Role Phone Jaylon Matias Unavailable [phone] Reason For Referral No Information Plan Of Treatment No Information
--- NOTE | 2024-12-23 13:39 | MHC.OFFVIS ---
Intake Visit Reasons: New prob-Rt hip pain Intake Note: Wendie is a 74 year old female who presents today for a evaluation of her right hip pain. Patient reports off and on pain for about 5 months. She states that her pain is on the groin area and it radiates to her low back. Patient states that her pain is worse when she is laying down at night. She states that she is taking Advil gel which is giving her mild relief. IMPRESSION: No acute fracture or dislocation. Stable. Vehicle Fuel Systems Converter Services: Vehicle Fuel Systems Converter Present (Germán ([id number])) Allergies No Known Allergies Allergy (Verified 11/24/24 13:28) HPI HPI New prob-Rt hip pain: Details: Ms. Raimundo Abdalla is a 74-year-old female who presents to the office today for evaluation of right hip pain. She reports that the pain is located in the groin and also radiates down to the knee and occasionally into her lower back. She denies any injury or trauma. Patient reports the pain has been present for the past 5 months. She also endorses numbness and tingling in the right foot. [facility] Medical History Fatty liver Snores Breast mass, right Diverticular disease Hospital discharge follow-up Acute diverticulitis Hypertension Syncope and collapse Tendonitis Arthritis Right knee pain Left hand pain Surgical History History of colon resection (08/17/24) Hx of right breast biopsy (06/23/24) Hx of hysterectomy Hx of hemorrhoidectomy Hx of colonoscopy History of hand surgery Status post hardware removal Family History Mother Alzheimer disease Hypertension Dementia Father Hypertension Social History Household Members: Spouse Housing: House Are you a primary child care attendant school to a significant other at home: No Do you presently have visiting nurse or other home services: Yes Alcohol intake: never Comment: pt refused bed alarm Patient Tobacco Use Status: Never used Tobacco e-Cigarette/Vaping Use: Never Used service: No Current occupational status: retired Current occupation: rt handed Review of Systems Const All systems reviewed & are unremarkable except as noted in HPI and below Physical Exam Extrem Other: Right hip: Full internal and external rotation with pain in the groin. No tenderness to palpation over the greater trochanteric bursa. 5/5 strength with resisted hip flexion, knee extension, abduction, and abduction. Able to perform straight leg raise. NVI. Assessment & Plan Assessment & Plan (1) Osteoarthritis of right hip: Code(s): M16.11 - Unilateral primary osteoarthritis, right hip Category: Medical Plan Ms. Raimundo Abdalla is a 74-year-old female who presents to the office today for evaluation of right hip pain. She reports that the pain is located in the groin and also radiates down to the knee and occasionally into her lower back. She denies any injury or trauma. Patient reports the pain has been present for the past 5 months. She also endorses numbness and tingling in the right foot. While in the office today, we discussed x-ray findings were significant for arthritic degenerative changes. At this time, the patient wishes to focus on her right knee pain in which she is scheduled for gel injections tomorrow. After she recovers fully from the right knee gel injections she would like to further discuss the role of intra-articular cortisone injections into the right hip. I did explain to the patient that these injections are performed under imaging guidance at the hospital. Should she wish to move forward with this she will contact our office via telephone and we will move forward with helping the patient Irma these appointments appropriately. She will follow up PRN, sooner if needed. X-rays of the pelvis which were obtained while in the office today and were reviewed by me, Jess Linton PA-C, revealed right hip mild osteoarthritis Orders: Orders XR pelvis 1-2V Today M25.559 - Pain in unspecified hip Coding Level of Care Code Est Pt Level 3 (74424) Diagnoses Osteoarthritis of right hip M16.11
== END 2024-12-23 14:03 | disposition home or self-care (01) ==
LOC: HO.HOS 13:25
PROVIDERS: PCP Internal Medicine Geriatric Medicine; Visit Provider Physician Assistant
DX: M16.11 Unilateral primary osteoarthritis, right hip (principal)
CPT/HCPCS: 99213

== ENCOUNTER → 2024-12-23 13:25 | Outpatient (BNV) | payer OTHER, SELFPAY | PROVIDERS: Visit Provider Radiology Diagnostic Radiology | DX: M25.551 Pain in right hip (principal) | CPT/HCPCS: 72170 ==

== ENCOUNTER 2024-12-24 10:05 | Outpatient (AMB) | payer OTHER, SELFPAY ==
--- OUTSIDE RECORDS SUMMARY | 2024-12-24 10:08 | XMS_ITS | Encounter Summary ---
Author Organization [employer] Address [address] [facility] 7t [place] [address] Care Team Providers Care Turbine Assembler Name Role Phone Name, Martín MARKS Primary Care Provider [phone] Encounter Details Date Type Department Care Team ([facility] st Contact Info) Description 03/07/2023 Orders Only [facility] CHC MED & PEDS [address] [place], [place] [phone] Geno Malave LPN Social History Tobacco Use [...] Description 02/14/2025 1:30 PM EDT Office Visit [facility] MEDICINE [address] [place] [address] Martín Pittman MD [address] [place] [address] 03/18/2025 10:00 AM EDT Office Visit [facility] ADULT DENTAL [address] [place] [address] Kasia Maldonado [address] [place] [address] documented as of this encounter Procedures Procedure Name Priority Date/Time Associated Diagnosis Comments BI MAMMOGRAM SCREENING TOMOSYNTHESIS BILATERAL Routine 03/11/2023 2:45 PM EDT documented in this encounter Results * BI Mammogram Screening Tomosynthesis Bilateral (03/11/2023 2:45 PM EDT) Anatomical Region Laterality Modality Breast Bilateral Mammography 03/11/2023 2:45 PM EDT Narrative 03/29/2023 1:32 PM [facility] [address] [place] [address] Mammography Report Signed Patient: Wendie Faye MR #: [id number] : 1950 Acct:[id number] Age/Sex: 72 / F ADM Date: 03/11/23 Loc: RENÉ Attending Dr: Martín Pittman MD Ordering Physician: Martín Pittman MD Results: 1Negative Date of Service: 03/11/23 Follow Up: 1 Year From Orig inal Mammogram Procedure(s): MM tomosynthesis screening BI Accession Number(s): [id number] cc: Martín Pittman MD EXAMINATION: MM SCREENING [...] OV> 03/29/23 1329 DD/ 1445 TD/TT: Sales Consulting Director: Procedure Note Donotuseinterpreter, Image - 03/29/2023 [facility] [address] [place] [address] Mammography Report Signed Patient: Wendie Faye MMR #: [id number] : 3Acct:[id number] Age/Sex: 72 / FADM Date: 03/11/23 Loc: RENÉ Attending Dr: Martín Pittman MD Ordering Physician: Martín Pittman MDResults: 1Negative Date of Service: 03/11/23Follow Up: 1 Year From Orig inal Mammogram Procedure(s): MM tomosynthesis screening BI Accession Number(s): [id number] cc: Martín Pittman MD EXAMINATION: MM SCREENING [...] OV> 03/29/23 1329 DD/ 1445 TD/TT: Sales Consulting Director: Martín Pittman MD IM BI PROCEDURES Edited Result - Final documented in this encounter Visit Diagnoses Not on filedocumented in this encounter Care Teams Turbine Assembler Relationship Specialty Start Date End Date Name, MD Martín [address] [place] [address] PCP - General Family Medicine 07/18/15 documented as of this encounter
--- OUTSIDE RECORDS SUMMARY | 2024-12-24 10:08 | XMS_ITS | Patient Health Record ---
Author Organization [facility] Address [address] [place] [id number] Care Team Providers Care Oil Pipeline Dispatcher Name Role Phone Jaylon Matias Unavailable [phone] Reason For Referral No Information Plan Of Treatment No Information
--- NOTE | 2024-12-24 10:14 | MHC.OFFVIS ---
Intake Visit Reasons: right knee Durolane Gel Injection Intake Note: Wendie is a 74 year old female who presents today for a right knee Durolane gel injection. Allergies No Known Allergies Allergy (Verified 12/24/24 10:14) HPI HPI right knee Durolane Gel Injection: Details: Ms. Raimundo Abdalla is a 74-year-old female who presents to the office today for right knee Durolane injection. [facility] Medical History Fatty liver Snores Breast mass, right Diverticular disease Hospital discharge follow-up Acute diverticulitis Hypertension Syncope and collapse Tendonitis Arthritis Right knee pain Left hand pain Surgical History History of colon resection (08/17/24) Hx of right breast biopsy (06/23/24) Hx of hysterectomy Hx of hemorrhoidectomy Hx of colonoscopy History of hand surgery Status post hardware removal Family History Mother Alzheimer disease Hypertension Dementia Father Hypertension Social History Household Members: Spouse Housing: House Are you a primary home care liaison to a significant other at home: No Do you presently have visiting nurse or other home services: Yes Alcohol intake: never Comment: pt refused bed alarm Patient Tobacco Use Status: Never used Tobacco e-Cigarette/Vaping Use: Never Used service: No Current occupational status: retired Current occupation: rt handed Review of Systems Const All systems reviewed & are unremarkable except as noted in HPI and below Physical Exam Const General: cooperative, healthy appearing and no acute distress Resp Effort & Inspection: normal respiratory effort and able to speak in complete sentences Extrem Other: Right knee normal to inspection no ecchymosis, erythema or joint effusion. Full knee range of motion. Tenderness to palpation lateral joint line. NVI. Office Procedures AMB Joint Injection/Aspiration Joint Injection/Aspiration Primary Site: right knee Prep: site was prepped using aseptic technique, ethochloride spray was applied and injection warnings given Injected: in the joint (Durolane injection) Approach Used: anterolateral Procedure: The patient tolerated the procedure well, but had some pain with the injection and there was some relief with the local anesthesia Coding 03604 - Large joint Procedure code (CPT) selection complete Assessment & Plan Assessment & Plan (1) Osteoarthritis of right knee: Code(s): M17.11 - Unilateral primary osteoarthritis, right knee Category: Medical Plan The patient was offered a right knee Durolane injection. The patient was explained the risks, benefits, and alternatives to receiving this injection. After receiving consent for the injection, the patient had the procedure done while in the office today. The patient tolerated the procedure well with no complications. Follow-up will be PRN, or sooner if needed Coding Level of Care Code Procedure Only Diagnoses Osteoarthritis of right knee M17.11 CPT Codes Coding - 62827 Large joint: 38819 - Large joint ([id number])
== END 2024-12-24 10:15 | disposition home or self-care (01) ==
LOC: HO.HOS 10:05
PROVIDERS: PCP Internal Medicine Geriatric Medicine; Visit Provider Physician Assistant
DX: M17.11 Unilateral primary osteoarthritis, right knee (principal)
CPT/HCPCS: 20610

== ENCOUNTER → 2024-12-24 10:05 | Outpatient (BNVA) | payer OTHER, SELFPAY | PROVIDERS: PCP Internal Medicine Geriatric Medicine; Visit Provider Physician Assistant | DX: M17.11 Unilateral primary osteoarthritis, right knee (principal) | CPT/HCPCS: 20610; J7318 ==

== ENCOUNTER 2025-01-27 08:44 | Outpatient (AMB) | payer OTHER, SELFPAY ==
--- NOTE | 2025-01-27 08:45 | A.OFFVIS_ITS ---
Vital Signs 01/27/25 08:51 Height 4 ft 11 in Weight 148 lb BMI 29.9 BP 119/59 L Blood Pressure Location Rt brachial Position Sitting Pulse 78 Intake Visit Reasons: hernia pain Intake Note: Patient here concerned with abdominal hernia. Patient c/o: painful, bulging noticeable on umbilicus. Noticed after sigmoid resection surgery. On and off pain with BM. Hx of sigmoid resection~ 08-17-2024 Director Of Reservations Required: No Accompanied by: spouse Yohan Allergies No Known Allergies Allergy (Verified 01/27/25 08:50) HPI HPI hernia pain: Details: She is here for what she describes a little ball on her umbilicus. She says he has noticed this for a couple of months now. She describes occasional pain. She denies GI complaints. She had undergone sigmoid resection for recurrent diverticulitis last August,. [facility] Medical History (Updated 01/27/25 @ 09:01 by Tim Cifuentes MD) Umbilical hernia Fatty liver Snores Breast mass, right Diverticular disease Hospital discharge follow-up Acute diverticulitis Hypertension Syncope and collapse Tendonitis Arthritis Right knee pain Left hand pain Surgical History History of colon resection (08/17/24) Hx of right breast biopsy (06/23/24) Hx of hysterectomy Hx of hemorrhoidectomy Hx of colonoscopy History of hand surgery Status post hardware removal Family History Mother Alzheimer disease Hypertension Dementia Father Hypertension Social History Household Members: Spouse Housing: House Are you a primary child care teacher to a significant other at home: No Do you presently have visiting nurse or other home services: Yes Alcohol intake: never Comment: pt refused bed alarm Patient Tobacco Use Status: Never used Tobacco e-Cigarette/Vaping Use: Never Used service: No Current occupational status: retired Current occupation: rt handed Review of Systems Const Denies chills and Denies fever(s) Card Denies chest pain, Denies dyspnea and Denies dyspnea on exertion Resp Denies cough, Denies dyspnea and Denies dyspnea on exertion GI Denies hematochezia and Denies change in bowel habits Denies hematuria Musc Denies back pain and Denies limited range of motion Neuro Denies focal weakness and Denies convulsions Psych Denies depression and Denies mood swings Physical Exam Vital Signs: Last Vital Signs Pulse 78 01/27/25 08:51 BP 119/59 L 01/27/25 08:51 BMI result Body Mass Index 29.9 Const General: comfortable and no acute distress Resp Effort & Inspection: normal respiratory effort Cardio Rate: regular rate GI Other: Small lump in the umbilicus, probably about 1 cm in size, partially reducible, consistent with an umbilical hernia Palpation (GI): Soft to palpation, not firm, nontender and no guarding Assessment & Plan Assessment & Plan (1) Umbilical hernia: Code(s): K42.9 - Umbilical hernia without obstruction or gangrene Category: Medical Plan: She has a small umbilical hernia as described above. This has likely secondary to her incision from her sigmoid resection I explained the option of proceeding with hernia repair with possible mesh. I explained the risks, benefits and alternatives She says she would like to hold off on any surgical intervention for now. She says that she is going on a cruise next month and wants to and just monitor this hernia. She says she will come back to me once he decides to proceed. Coding Level of Care Code Est Pt Level 3 (33212) Diagnoses Umbilical hernia K42.9
[2025-01-27 08:51] VITALS: BP 119/59; PULSE 78; BMI 29.9
--- OUTSIDE RECORDS SUMMARY | 2025-01-27 09:47 | XMS_ITS | Encounter Summary ---
Author Organization [employer] [facility] Address [address] [facility] [address] [place] [address] Care Team Providers Care Impregnation Operator Name Role Phone Name, Martín MARKS Primary Care Provider [phone] Encounter Details Date Type Department Care Team (Latest Contact Info) Description 11/06/2020 Abstract [facility] CONVERSIONS Dental, Provider, DDS Social [...] 1:30 PM EDT Office Visit [facility] MEDICINE [address] [place] [address] NameMartín MD [address] [place] [address] 03/18/2025 10:00 AM EDT Office Visit [facility] ADULT DENTAL [address] [place] [address] Long Maldonadoaris [address] [place] [address] documented as of this encounter Visit Diagnoses Not on filedocumented in this encounter Care Teams Impregnation Operator Relationship Specialty Start Date End Date NameMartín MD [address] [place] [address] PCP - General Family Medicine 07/18/15 documented as of this encounter
--- OUTSIDE RECORDS SUMMARY | 2025-01-27 09:47 | XMS_ITS | Encounter Summary ---
Author Organization [employer] Address [address] [facility] 7t [place] [address] Care Team Providers Care Clinical Trials Specialist Name Role Phone Name, Martín MARKS Primary Care Provider [phone] Encounter Details Date Type Department Care Team (Late st Contact Info) Description 03/25/2023 Orders Only [facility] MEDICINE [address] [place], [place] [phone] Name, MD Martín [address] [place] [address] Social History Tobacco Use Types Packs/Day Years [...] Description 02/14/2025 1:30 PM EDT Office Visit [facility] MEDICINE [address] [place] [address] Name, MD Martín [address] [place] [address] 03/18/2025 10:00 AM EDT Office Visit [facility] ADULT DENTAL [address] [place] [address] Kasia Maldonado [address] [place] [address] documented as of this encounter Visit Diagnoses Not on filedocumented in this encounter Care Teams Clinical Trials Specialist Relationship Specialty Start Date End Date Name, MD Martín [address] [place] [address] PCP - General Family Medicine 07/18/15 documented as of this encounter
--- OUTSIDE RECORDS SUMMARY | 2025-01-27 09:47 | XMS_ITS | Patient Health Record ---
Author Organization [employer] Address [address] [place] [address] Care Team Providers Care Residential Roofer Helper Name Role Phone Jaylon Matias Unavailable [phone] Reason For Referral No Information Plan Of Treatment No Information
--- OUTSIDE RECORDS SUMMARY | 2025-01-27 09:47 | XMS_ITS | Encounter Summary ---
Author Organization [employer] Address [address] [facility] 7t [place] [address] Care Team Providers Care Carpet Installer Name Role Phone Name, Martín MARKS Primary Care Provider [phone] Encounter Details Date Type Department Care Team ([facility] st Contact Info) Description 03/07/2023 Orders Only [facility] CHC MED & PEDS [address] [place], [place] [phone] Geno Malave LPN Social History Tobacco Use [...] 1:30 PM EDT Office Visit [facility] MEDICINE [address] [place] [address] Martín Pittman MD [address] [place] [address] 03/18/2025 10:00 AM EDT Office Visit [facility] ADULT DENTAL [address] [place] [address] Kasia Maldonado [address] [place] [address] documented as of this encounter Procedures Procedure Name Priority Date/Time Associated Diagnosis Comments BI MAMMOGRAM SCREENING TOMOSYNTHESIS BILATERAL Routine 03/11/2023 2:45 PM EDT documented in this encounter Results * BI Mammogram Screening Tomosynthesis Bilateral (03/11/2023 2:45 PM EDT) Anatomical Region Laterality Modality Breast Bilateral Mammography 03/11/2023 2:45 PM EDT Narrative 03/29/2023 1:32 PM [facility] [address] [place] [address] Mammography Report Signed Patient: Wendie Faye MR #: [id number] : 1950 Acct:[id number] Age/Sex: 72 / F ADM Date: 03/11/23 Loc: RENÉ Attending Dr: Martín Pittman MD Ordering Physician: Martín Pittman MD Results: 1Negative Date of Service: 03/11/23 Follow Up: 1 Year From Orig inal Mammogram Procedure(s): MM tomosynthesis screening BI Accession Number(s): [id number] cc: Martín Pittman MD EXAMINATION: MM SCREENING [...] in OV> 03/29/23 1329 DD/ 1445 TD/TT: Smoking Tobacco Packer Hand: Procedure Note Donotuseinterpreter, Image - 03/29/2023 [facility] [address] [place] [address] Mammography Report Signed Patient: Wendie Faye MMR #: [id number] : 3Acct:[id number] Age/Sex: 72 / FADM Date: 03/11/23 Loc: RENÉ Attending Dr: Martín Pittman MD Ordering Physician: Martín Pittman MDResults: 1Negative Date of Service: 03/11/23Follow Up: 1 Year From Orig inal Mammogram Procedure(s): MM tomosynthesis screening BI Accession Number(s): [id number] cc: Martín Pittman MD EXAMINATION: MM SCREENING [...] in OV> 03/29/23 1329 DD/ 1445 TD/TT: Smoking Tobacco Packer Hand: Martín Pittman MD IM BI PROCEDURES Edited Result - Final documented in this encounter Visit Diagnoses Not on filedocumented in this encounter Care Teams Carpet Installer Relationship Specialty Start Date End Date Name, MD Martín [address] [place] [address] PCP - General Family Medicine 07/18/15 documented as of this encounter
--- OUTSIDE RECORDS SUMMARY | 2025-01-27 09:47 | XMS_ITS | Encounter Summary ---
Author Organization [employer] Address [address] [facility] 7t [place] [address] Care Team Providers Care Order Filler Name Role Phone Name, Martín MARKS Primary Care Provider [phone] Reason for Visit * Reason Comments Med Refill Encounter Details Date Type Department Care Team ([facility] st Contact Info) Description 05/24/2023 Refill [facility] MEDICINE [address] [place], [place] [phone] Name, MD Martín [address] [place] [address] Allergic rhinitis, unspecified seasonality, unspecified trigger Social [...] Description 02/14/2025 1:30 PM EDT Office Visit [facility] MEDICINE [address] [place] [address] NameMartín MD [address] [place] [address] 03/18/2025 10:00 AM EDT Office Visit [facility] ADULT DENTAL [address] [place] [address] Kasia Maldonado [address] [place] [address] documented as of this encounter Visit Diagnoses Diagnosis Allergic rhinitis, unspecified seasonality, unspecified trigger documented in this encounter Care Teams Order Filler Relationship Specialty Start Date End Date Martín Pittman MD [address] [place] [address] PCP - General Family Medicine 07/18/15 documented as of this encounter
--- OUTSIDE RECORDS SUMMARY | 2025-01-27 09:47 | XMS_ITS | Encounter Summary ---
Author Organization [employer] [facility] Address [address] [facility] [address] [place] [address] Care Team Providers Care Marine Engineering Professor Name Role Phone Name, Martín MARKS Primary Care Provider [phone] Encounter Details Date Type Department Care Team (Latest Contact Info) Description 11/01/2021 Abstract [facility] CONVERSIONS Dental, Provider, DDS Social History [...] Description 02/14/2025 1:30 PM EDT Office Visit [facility] MEDICINE [address] [place] [address] NameMartín MD [address] [place] [address] 03/18/2025 10:00 AM EDT Office Visit [facility] ADULT DENTAL [address] [place] [address] Long Maldonadoaris [address] [place] [address] documented as of this encounter Visit Diagnoses Not on filedocumented in this encounter Care Teams Marine Engineering Professor Relationship Specialty Start Date End Date NameMartín MD [address] [place] [address] PCP - General Family Medicine 07/18/15 documented as of this encounter
--- OUTSIDE RECORDS SUMMARY | 2025-01-27 09:47 | XMS_ITS | Encounter Summary ---
Author Organization [employer] Address [address] [facility] 7t [place] [address] Care Team Providers Care Delivery Truck Driver Heavy Name Role Phone Name, Martín MARKS Primary Care Provider [phone] Reason for Visit * Reason Comments Med Refill Encounter Details Date Type Department Care Team ([facility] st Contact Info) Description 04/09/2023 Refill [facility] MEDICINE [address] [place], [place] [phone] Name, MD Martín [address] [place] [address] Social History Tobacco Use Types Packs/Day Years [...] Description 02/14/2025 1:30 PM EDT Office Visit [facility] MEDICINE [address] [place] [address] Name, MD Martín [address] [place] [address] 03/18/2025 10:00 AM EDT Office Visit [facility] ADULT DENTAL [address] [place] [address] Kasia Maldonado [address] [place] [address] documented as of this encounter Visit Diagnoses Not on filedocumented in this encounter Care Teams Delivery Truck Driver Heavy Relationship Specialty Start Date End Date Name, MD Martín [address] [place] [address] PCP - General Family Medicine 07/18/15 documented as of this encounter
--- OUTSIDE RECORDS SUMMARY | 2025-01-27 09:48 | XMS_ITS | Encounter Summary ---
Author Organization [employer] Address [address] [facility] [address] [place] [address] Care Team Providers Care Oil Truck Driver Name Role Phone Name, Martín MARKS Primary Care Provider [phone] Reason for Visit * Reason Onset Date Comments Med Refill 07/22/2023 Encounter Details Date Type Department Care Team ([facility] st Contact Info) Description 07/22/2023 Telephone [facility] MEDICINE [address] [place], [place] [phone] Name, MD Martín [address] [place] [address] Med Refill Social History Tobacco Use Types [...] 10 MG [facility] [address] [place] [address] documented in this encounter Plan of Treatment Upcoming Encounters Date Type Department Care Team (Late st Contact Info) Description 02/14/2025 1:30 PM EDT Office Visit [facility] MEDICINE [address] [place] [address] Name, MD Martín [address] [place] [address] 03/18/2025 10:00 AM EDT Office Visit [facility] ADULT DENTAL [address] [place] [address] Kasia Maldonado [address] [place] [address] documented as of this encounter Visit Diagnoses Not on filedocumented in this encounter Care Teams Oil Truck Driver Relationship Specialty Start Date End Date Name, MD Martín [address] [place] [address] PCP - General Family Medicine 3/1/16 documented as of this encounter
--- OUTSIDE RECORDS SUMMARY | 2025-01-27 09:48 | XMS_ITS | Clinical Summary ---
Author Organization [employer] Address [address] [facility] 7t [place] [address] Care Team Providers Care Station Examiner Name Role Phone Name, Martín MARKS Primary Care Provider [phone] Allergies No known active allergies Medications atorvastatin (Lipitor) 20 MG tablet Take 20 mg by mouth Once per day. 02/27/20 22 Active budesonide (Pulmicort) 0.5 MG/2ML nebulizer solution USE 1 VIAL VIA NEBULIZER EVERY DAY 180 mL 3 03/07/20 23 Active Calcium Carb-Cholecalci ferol 500-10 MG-MCG tablet Take 1 tablet by mouth in the morning and 1 tablet in the evening. 07/20/19 17 Active cholecalciferol (Vitamin D-3) 50 MCG (2000 UT) tablet Take 1 tablet by mouth 1 (one) time each day. 12/18/19 22 Active cyanocobalamin (Vitamin B-12) 1000 MCG tablet Take 1 tablet by mouth Once per day. 07/20/19 17 Active methocarbamol (Robaxin) 750 MG tablet Take 1 tablet (750 mg) by mouth 3 times daily for 10 days. 30 tablet 04/03/20 23 Active albuterol (Ventolin HFA) 108 (90 Base) MCG/ACT inhaler INHALE 2 PUFFS EVERY 6 HOURS IF NEEDED FOR WHEEZING. 18 g 2 05/26/19 24 Active losartan (Cozaar) 25 MG tablet 09/09/19 24 Active omeprazole (PriLOSEC) [address] capsule 08/12/19 24 Active amLODIPine (Norvasc) 5 MG tablet Take 1 tablet by mouth Once per day. Active amoxicillin-cla vulanate (Augmentin) 875-125 MG tablet 07/14/19 25 Active dicyclomine (Bentyl) 10 MG capsule 07/14/19 25 Active loratadine (Claritin) 10 MG tabletIndicatio ns:Allergic rhinitis, unspecified seasonality, unspecified trigger TOME 1 TABLETA POR VIA ORAL TODOS LOS BAIN EN LA MANANA 90 tablet 1 08/25/19 25 Active etodolac (Lodine) 200 MG capsuleIndicati ons:Chronic pain of right knee,Chronic right hip pain TAKE 1 CAPSULE BY MOUTH TWICE A DAY 60 capsule 1 01/04/20 25 Active zolpidem (Ambien) 10 MG tabletIndicatio ns:Insomnia, unspecified type TAKE 1 TABLET BY MOUTH AT BEDTIME IF NEEDED FOR SLEEP 30 tablet 01/21/20 25 Active etodolac (Lodine) 200 MG capsuleIndicati ons:Chronic pain of right knee,Chronic right hip pain Take 1 capsule (200 mg) by mouth 2 times daily. 60 capsule 1 11/04/19 25 025 Discontinued zolpidem (Ambien) 10 MG tabletIndicatio ns:Insomnia, unspecified type TAKE 1 TABLET BY MOUTH AT BEDTIME IF NEEDED FOR SLEEP 30 tablet 12/11/19 25 025 Discontinued(Re order (will not trigger notification to Pharmacy)) Active Problems Problem Noted Date Diagnosed Date Osteoarthritis of left shoulder 03/02/2024 Left hand pain 03/02/2024 Hospital discharge follow-up 03/02/2024 Overview (03/02/2024): D/C from [facility]--readmitted to x 1 day-biotics discharge p.o. antibiotics [...] Encounters Date Type Department Care Team Description 01/20/2025 Refill C MEDICINE [address] [place] [address] Martín Pittman MD Insomnia, unspecified type 01/02/2025 Refill [facility] MEDICINE [address] [place] [address] Martín Pittman MD Chronic pain of right knee; Chronic right hip pain 12/10/2024 Refill [facility] [address] [place] [address] Martín Pittman MD Insomnia, unspecified type 11/26/2024 Refill [facility] [address] [place] [address] Martín Pittman MD Insomnia, unspecified type 11/12/2024 Telephone C MEDICINE [address] [place] [address] Martín Pittman MD Prior Authorization (PA APPROVAL) 11/09/2024 Telephone C MEDICINE [address] [place] [address] Martín Pittman MD Durable Medical Equipment 11/09/2024 Telephone [facility] MEDIC[facility] [address] [place] [address] NameMartín MD Durable Medical Equipment 11/09/2024 Telephone [facility] [place] [address] NameMartín MD Prior Auth Procedure 11/03/2024 3:45 PM EDT Office Visit [facility] [place] [address] NameMartín MD Chronic pain of right knee (Primary Dx); Chronic right hip pain; Insomnia, unspecified type 11/03/2024 Travel 11/01/2024 Orders Only [facility] External Provider, [facility] from Last 3 Months Immunizations Immunization Administration [...] Sign Reading Time Taken Comments Blood Pressure 128/78 11/03/2024 3:49 PM EDT Pulse 89 11/03/2024 3:49 PM EDT Temperature 36.5 C (97.7 F) 11/03/2024 3:49 PM EDT Respiratory Rate 12 11/03/2024 3:49 PM EDT Oxygen Saturation 99% 11/03/2024 3:49 PM EDT Inhaled Oxygen Concentration - - Weight 66.2 kg (146 lb) 11/03/2024 3:49 PM EDT Height 149.9 cm (4' 11 ) 11/03/2024 3:49 PM EDT Body Mass Index 29.49 11/03/2024 3:49 PM EDT Plan of Treatment Upcoming Encounters Date Type Department Care Team (Late st Contact Info) Description 02/14/2025 1:30 PM EDT Office Visit [facility] MEDICINE [address] [place] [address] Name, MD Martín [address] [place] [address] 03/18/2025 10:00 AM EDT Office Visit [facility] ADULT DENTAL [address] [place] [address] [place] [address] Health Maintenance Due Date Last Done Comments CT Colonography 1950 FIT DNA/Cologuard 1950 FOBT 1950 Sigmoidoscopy 1950 Zoster Vaccines (1 of 2) 2002 RSV Patients and Patients Aged 60 years or older (1 - Risk 60-74 years 1-dose series) 2012 FIT 07/15/2023 07/15/2022, 07/15/2022 SDOH Screening 09/14/2024 09/15/2023 Depression Monitoring 10/04/2024 04/06/2024, 024 Dental X-Ray: Full Mouth 11/07/2024 11/06/2021 COVID-19 Vaccine ( season) 2025 01/02/2022, 01/02/2022, 10/30/2021, Additional history exists Influenza Vaccine (#1) 2025 01/30/2015, 2013 Dental Oral Exam 03/05/2025 09/02/2024, 10/2023, 08/12/2022 Dental Prophylaxis 03/05/2025 09/02/2024, 0 01/01/2024, 06/24/2023, Additional history exists Alcohol/Substance Use Screening 04/06/2025 04/06/2024 Dental X-Ray: Bitewings 09/03/2025 09/03/19 25, 06/24/2023, 08/12/2022 Tobacco Screening 11/03/2025 11/03/2024 DTaP/Tdap/Td Vaccines (2 - Td or Tdap) 03/27/2026 03/27/2016 Mammogram 06/23/2026 06/23/2024, 010 11/2024, 03/30/2024, Additional history exists Lipid Panel [...] patient's age to complete this topic Meningococcal B Vaccine Aged Out No l onger eligible based on patient's age to complete [...] Name Priority Date/Time Associated Diagnosis Comments XR KNEE 3 VIEWS RIGHT Routine 11/01/2024 12:20 PM EDT XR HIP RIGHT WITH PELVIS 1 VIEW Routine 11/01/2024 12:17 PM EDT PROPHYLAXIS - ADULT Routine 09/02/2024 2 :00 PM EDT Dental plaque BITEWINGS - 4 RADIOGRAPHIC IMAGES Routine 09/02/2024 2:00 PM EDT Dental plaque Localized gingival recession, minimal Missing teeth, acquired PERIODIC ORAL EVALUATION - ESTABLISHED PATIENT Routine 09/02/2024 2:00 PM EDT BI MAMMOGRAM DIAGNOSTIC TOMOSYNTHESIS RIGHT Routine 06/23/2024 9:00 AM EST HEPATITIS C ANTIBODY Routine 05/10/2024 1:37 PM EST HM COLONOSCOPY Routine 08/12/2023 LIPID PANEL, STANDARD Routine 07/24/2022 9:07 AM EST Essential hypertension FECAL IMMUNOCHEMICAL Routine 07/15/2022 from Last 3 Months or Most Recently Relevant to Health Maintenance Results * XR Knee 3 Views Right (11/01/2024 12:20 PM EDT) Anatomical Region Laterality Modality Lower Extremities, Knee Right Radiogra phic Imaging 11/01/2024 12:2 0 PM EDT Narrative 11/01/2024 1:31 PM EDT [address] [address] XRay Report Signed Patient: Wendie Faye MR #: [id number] : 1950 Acct:[id number] Age/Sex: 73 / F ADM Date: 11/01/24 Loc: HO.ED Attending Dr: Ordering Physician: Merna Abraham Date of Service: 11/01/24 Procedure(s): XR knee RT 3V Accession Number(s): [id number] cc: Merna Abraham; Name,Martín MARKS EXAMINATION: XR KNEE, RIGHT CLINICAL INFORMATION: pain, injury COMPARISON: September 05, 2024. TECHNIQUE: AP, oblique and lateral views of the right knee. FINDINGS: No acute cortical disruption or alignment. No lytic or blastic lesions. No suprapatellar bursa joint effusion. No metallic or radiopaque foreign body. No subcutaneous emphysema. XR/XR knee RT 3V IMPRESSION: No acute fracture or dislocation. Stable. Electronically signed by: Domingo Ibarra MD 11/01/2024 01:29 PM EDT Dictated By: Domingo Law MD Signed By: <Electronically signed by Domingo Velez MD in OV> 11/01/24 1329 DD/ 1220 TD/TT: 11/01/24 1322 Campus Dean: Procedure Note Donotuseinterpreter, Image - 11/01/[address] [address] XRay Report Signed Patient: Wendie Faye MMR #: [id number] : 1950cct:[id number] Age/Sex: 73 / FADM Date: 11/01/24 Loc: HO.ED Attending Dr: Ordering Physician: Merna Abraham Date of Service: 11/01/24 Procedure(s): XR knee RT 3V Accession Number(s): [id number] cc: Merna Abraham; Name,Martín MARKS EXAMINATION: XR KNEE, RIGHT CLINICAL INFORMATION: pain, injury COMPARISON: September 05, 2024. TECHNIQUE: AP, oblique and lateral views of the right knee. FINDINGS: No acute cortical disruption or alignment. No lytic or blastic lesions. No suprapatellar bursa joint effusion. No metallic or radiopaque foreign body. No subcutaneous emphysema. XR/XR knee RT 3V IMPRESSION: No acute fracture or dislocation. Stable. Electronically signed by: Domingo Ibarra MD 11/01/2024 01:29 PM EDT Dictated By: Domingo Law MD Signed By: <Electronically signed by Domingo Velez MDin OV> 11/01/24 1329 DD/ 1220 TD/TT: 11/01/24 1322 Campus Dean: [facility] External Provider IMG XR PROCEDURES Edited Result - Final * XR Hip right with Pelvis 1 view (11/01/2024 12:17 PM EDT) Anatomical Region Laterality Modality Lower Extremities, Hip Bilateral Radiograp hic Imaging 11/01/2024 12:1 7 PM EDT Narrative 11/01/2024 1:30 PM EDT [place] [address] XRay Report Signed Patient: Wendie Faye MR #: [id number] : 1950 Acct:[id number] Age/Sex: 73 / F ADM Date: 11/01/24 Loc: HO.ED Attending Dr: Ordering Physician: Merna Abraham Date of Service: 11/01/24 Procedure(s): XR hip RT w PEL1V Accession Number(s): [id number] cc: Merna Abraham; Name,Martín MARKS EXAMINATION: XR HIP, RIGHT CLINICAL INFORMATION: pain COMPARISON: September 16, 2024. TECHNIQUE: Two views of the right hip. AP view pelvis. FINDINGS: No acute cortical disruption or malalignment. Subchondral cyst formation and sclerosis along the articular surface of the acetabulum and to a lesser extent femoral head. No lytic or blastic lesions. The bony pelvis intact. Degenerative changes in the left coxofemoral joint.. XR/XR hip RT w PEL1V IMPRESSION: Mild osteoarthrosis without acute fracture or dislocation. Electronically signed by: Domingo Ibarra MD 11/01/2024 01:27 PM EDT Dictated By: Domingo Law MD Signed By: <Electronically signed by Domingo Velez MD in OV> 11/01/24 1327 DD/ 1217 TD/TT: 11/01/24 1322 Campus Dean: Procedure Note Donotuseinterpreter, Image - 11/01/2024 [place] [address] XRay Report Signed Patient: Wendie Faye MMR #: [id number] : 3Acct:[id number] Age/Sex: 73 / FADM Date: 11/01/24 Loc: HO.ED Attending Dr: Ordering Physician: Merna Abraham Date of Service: 11/01/24 Procedure(s): XR hip RT w PEL1V Accession Number(s): [id number] cc: Merna Abraham; Name,Martín MARKS EXAMINATION: XR HIP, RIGHT CLINICAL INFORMATION: pain COMPARISON: September 16, 2024. TECHNIQUE: Two views of the right hip. AP view pelvis. FINDINGS: No acute cortical disruption or malalignment. Subchondral cyst formation and sclerosis along the articular surface of the acetabulum and to a lesser extent femoral head. No lytic or blastic lesions. The bony pelvis intact. Degenerative changes in the left coxofemoral joint.. XR/XR hip RT w PEL1V IMPRESSION: Mild osteoarthrosis without acute fracture or dislocation. Electronically signed by: Domingo Ibarra MD 11/01/2024 01:27 PM EDT RP Dictated By: Domingo Law MD Signed By: <Electronically signed by Domingo Velez MDin OV> 11/01/24 1327 DD/ 1217 TD/TT: 11/01/24 1322 Campus Dean: [facility] External Provider IMG XR PROCEDURES Edited Result - Final * BI Mammogram Diagnostic Tomosynthesis Right (06/23/2024 9:00 AM EST) Anatomical Region Laterality Modality Breast Right Mammography 06/23/2024 9:00 AM EST Narrative 06/23/2024 10:34 AM EST [address] [place] [address] Mammography Report Signed with Addenda Patient: Wendie Faye MR #: [id number] : 1950 Acct:[id number] Age/Sex: 73 / F ADM Date: 06/23/24 Loc: HO.MAMMO Attending Dr: Tim Cifuentes MD Ordering Physician: Tim Cifuentes MD Results: Date of Service: 06/23/24 Follow Up: Procedure(s): MM tomosynthesis diagnostic RT Accession Number(s): [id number] cc: Tim Cifuentes MD; Name,Martín MARKS ADDENDUM [...] DO Addendum Signed By: <Electronically signed by Reina Rod DO in OV> 06/25/24 1113 Addendum Cosigned By: [...] by: Reina Rod DO 06/23/2024 10:30 AM [facility] Dictated By: Reina Rod DO Signed By: <Electronically signed by Reina Rod DO in OV> 06/23/24 1030 DD/ 9 TD/TT: 06/23/24944 Campus Dean: Procedure Note Donotuseinterpreter, Image - 07/02/2024 [facility] [address] [place] [address] Dr. Rosenthal, TESSIE [address] Mammography Report Signed with Addenda Patient: Wendie Faye MMR #: [id number] : 1950cct:[id number] Age/Sex: 73 / FADM Date: 06/23/24 Loc: HO.MAMMO Attending Dr: Tim Cifuentes MD Ordering Physician: Tim Cifuentes MDResults: Date of Service: 06/23/24Follow Up: Procedure(s): MM tomosynthesis diagnostic RT Accession Number(s): [id number] cc: Tim Cifuentes MD; Name,Martín MARKS ADDENDUM [...] 06/23/24 1030 DD/ 0900 TD/TT: 06/23/24 0945 Campus Dean: [facility] External Provider IMG BI PROCEDURES Edited Result - Final * Hepatitis C Ab (05/10/2024 1:37 PM EST) Hepatitis C Antibody Nonreactive Nonreactive [facility] Comment:Antibodies to HCV no t detected; does not exclude early acuteHCV infection. 05/10/2024 1:37 PM EST 05/10/2024 4:01 PM EST Generic External Data Provider LAB BLOOD ORDERAB LES Final Result [facility] [address] [place] [phone] * (ABNORMAL) Colonoscopy (08/12/2023) Colonoscopy Abnormal(A ) Normal Martín Pittman MD HEALTH MAINTENANCE Final Result * (ABNORMAL) Lipid Panel, Standard (07/24/2022 9:07 AM EST) Cholesterol, Total 206(H) <200 mg/dL [place] [employer] HDL Cholesterol 40(L) > OR = 50 mg/dL [place] [employer] Triglycerides 252(H) <150 mg/dL [place] [employer] Comment: If a non-fasting specimen was collected, consider repeat triglyceride testing on a fasting specimen if clinically indicated. Arian et al. J. of Clin. Lipidol. 2015;9:129-169. LDL Cholesterol 127(H) mg/dL (calc) [place] [employer] Comment: Reference range: <100 Desirable range <100 mg/dL for primary prevention; <70 mg/dL for patients with CHD or diabetic patients with > or = 2 CHD risk factors. LDL-C is now calculated using the Amy calculation, which is a validated novel method providing better accuracy than the Friedewald equation in the estimation of LDL-C. James SS et al. SHEREE. 2013;310(19): 9167-9990 (http://education.[employer]/faq/TXW810) Chol/HDLC Ratio 5.2(H) <5.0 (calc) [place] [employer] Non-HDL Cholesterol 166(H) <130 mg/dL (calc) [place] [employer] Comment: For patients with diabetes plus 1 major ASCVD risk factor, treating to a non-HDL-C goal of <100 mg/dL (LDL-C of <70 mg/dL) is considered a therapeutic option. Blood Venous blood specimen / Unknown 07/24/2022 9:07 AM EST 07/24/2022 9:08 AM EST Narrative [facility] - 07/24/2022 9:39 PM EST FASTING:NO FASTING: NO us Martín Pittman MD LAB BLOOD ORDERABLES Final Resul t [facility] [address] [facility], [place] [address] [place] [employer] [address] [facility], ([address]) [place] [address] * Fecal immunochemical (07/15/2022) Fecal Immunoassay Test (External) Negative Stool Rectal contents / Unknown Historical Provider LAB BODY FLUIDS AND STOOL S ORDERABLES Final Result from Last 3 Months or Most Recently Relevant to Health Maintenance Insurance [facility] RESIDENTIAL OPTIONS (O D-SNP) [place] [id number] [facility] Care Teams Station Examiner Relationship Specialty Start Date End Date Name, MD Martín [address] [place] [address] PCP - General Family Medicine 07/18/15
--- OUTSIDE RECORDS SUMMARY | 2025-01-27 09:48 | XMS_ITS | Encounter Summary ---
Author Organization [employer] [facility] Address [address] [place] [address] [address] [place] [address] Care Team Providers Care Parasitologist Name Role Phone Name, Martín MARKS Primary Care Provider [phone] Reason for Visit * Reason Comments Med Refill Encounter Details Date Type Department Care Team (Late st Contact Info) Description 07/26/2022 Refill [facility] MEDICINE [address] [place] [address] [phone] Name, MD Martín [address] [place] [address] [phone] Insomnia, unspecified type Social History Tobacco Use [...] Description 02/14/2025 1:30 PM EDT Office Visit [facility] MEDICINE [address] [place] [address] [phone] Name, MD Martín [address] [place] [address] [phone] 03/18/2025 10:00 AM EDT Office Visit [facility] ADULT DENTAL [address] [place] [address] Kasia Maldonado [address] [place] [address] documented as of this encounter Visit Diagnoses Diagnosis Insomnia, unspecified type documented in this encounter Care Teams Parasitologist Relationship Specialty Start Date End Date Name, MD Martín [address] [place] [address] PCP - General Family Medicine 07/18/15 documented as of this encounter
--- OUTSIDE RECORDS SUMMARY | 2025-01-27 09:48 | XMS_ITS | Encounter Summary ---
Author Organization [employer] Address [address] [facility] 7t [place] [address] Care Team Providers Care Audiometrist Name Role Phone Name, Martín MARKS Primary Care Provider [phone] Reason for Visit * Reason Onset Date Comments Hospital Follow-up 04/12/2024 Encounter Details Date Type Department Care Team ([facility] st Contact Info) Description 04/12/2024 Telephone [facility] MEDICINE [address] [place], [place] [phone] Name, MD Martín [address] [place] [address] Hospital Follow-up Social History Tobacco Use Types [...] from pt requesting a HDF appt. Hospital: [facility] Date of admission: 04/07/24 Discharge date: 04/12/24 Diagnosed: intestinal infection *Send message to [facility] Care Coordinators documented in this encounter Plan of Treatment Upcoming Encounters Date Type Department Care Team (Late st Contact Info) Description 02/14/2025 1:30 PM EDT Office Visit [facility] MEDICINE [address] [place] [address] NameMartín MD [address] [place] [phone] 03/18/2025 10:00 AM EDT Office Visit [facility] ADULT DENTAL [address] [place] [address] Kasia Maldonado [address] [place] [address] documented as of this encounter Visit Diagnoses Not on filedocumented in this encounter Additional Health Concerns Assessment Noted Time PHQ-9 Depression Total Score: 22 024 11:54 AM EST documented as of this encounter Care Teams Audiometrist Relationship Specialty Start Date End Date Martín Pittman MD [address] [place] [address] PCP - General Family Medicine 07/18/15 documented as of this encounter
--- OUTSIDE RECORDS SUMMARY | 2025-01-27 09:48 | XMS_ITS | Encounter Summary ---
Author Organization [employer] Address [address] [place] [address] [address] [place] [address] Care Team Providers Care Cardiac Cath Rn Name Role Phone Name, Martín MARKS Primary Care Provider [phone] Reason for Visit * Reason Onset Date Comments Med Refill 10/21/2022 Encounter Details Date Type Department Care Team (Late st Contact Info) Description 10/21/2022 Refill [facility] MEDICINE [address] [place], [place] [phone] Name, MD Martín [address] [place] [address] Insomnia, unspecified type Social History Tobacco Use [...] 1:30 PM EDT Office Visit [facility] MEDICINE [address] [place] [address] Name, MD Martín [address] [place] [address] 03/18/2025 10:00 AM EDT Office Visit [facility] ADULT DENTAL [address] [place] [address] Kasia Maldonado [address] [place] [address] documented as of this encounter Visit Diagnoses Diagnosis Insomnia, unspecified type documented in this encounter Care Teams Cardiac Cath Rn Relationship Specialty Start Date End Date Name, MD Martín [address] [place] [address] PCP - General Family Medicine 07/18/15 documented as of this encounter
--- OUTSIDE RECORDS SUMMARY | 2025-01-27 09:48 | XMS_ITS | Encounter Summary ---
Author Organization [employer] Address [address] [facility] 7t [place] [address] Care Team Providers Care Home Help Aide Name Role Phone Name, Martín MARKS Primary Care Provider [phone] Reason for Visit * Reason Onset Date Comments Call Back Request 07/11/2023 Encounter Details Date Type Department Care Team ([facility] st Contact Info) Description 07/11/2023 Telephone [facility] MEDICINE [address] [place], [place] [phone] Name, MD Martín [address] [place] [address] Call Back Request Social History Tobacco Use [...] T/C to pt. For below message through SMIC id - [id number], pt. States she has already apt. For CT scan, pt. Is all set right now. Advised to give call to [facility] if any question or concerns. * Telephone Encounter - Sharon Langford - 07/11/2023 11:45 AM EST Tc from pt requesting order for ct scan on left hand stated talk with PCP about this please contactpt for clarifications. documented in this encounter Plan of Treatment Upcoming Encounters Date Type Department Care Team ([facility] st Contact Info) Description 02/14/2025 1:30 PM EDT Office Visit [facility] MEDICINE [address] [place] [address] NameMartín MD [address] [place] [address] 03/18/2025 10:00 AM EDT Office Visit [facility] ADULT DENTAL [address] [place] [address] Kasia Maldonado [address] [place] [address] documented as of this encounter Visit Diagnoses Not on filedocumented in this encounter Care Teams Home Help Aide Relationship Specialty Start Date End Date Martín Pittman MD [address] [place] [address] PCP - General Family Medicine 07/18/15 documented as of this encounter
--- OUTSIDE RECORDS SUMMARY | 2025-01-27 09:48 | XMS_ITS | Encounter Summary ---
Author Organization [employer] Address [address] [place] [address] [address] [place] [address] Care Team Providers Care Brief Writer Name Role Phone Name, Martín MARKS Primary Care Provider [phone] Encounter Details Date Type Department Care Team (Late Contact Info) Description 10/28/[address] [facility] MEDICINE [address] [place] [phone] NameMartín MD [address] [place] [phone] Social History Tobacco Use Types Packs/Day Years [...] Department Care Team (Late Contact Info) Description 02/14/2025 1:30 PM EDT Office Visit [facility] MEDICINE [address] [place] [address] [phone] Martín Pittman MD [address] [place] [address] 03/18/2025 10:00 AM EDT Office Visit [facility] ADULT DENTAL [address] [place] [phone] Kasia Maldonado [address] [place] [address] documented as of this encounter Visit Diagnoses Not on filedocumented in this encounter Care Teams Brief Writer Relationship Specialty Start Date End Date Name, MD Martín [address] [place] [address] PCP - General Family Medicine 07/18/15 documented as of this encounter
--- OUTSIDE RECORDS SUMMARY | 2025-01-27 09:48 | XMS_ITS | Encounter Summary ---
Author Organization [employer] Address [address] [facility] 7t [place] [address] Care Team Providers Care Can Repairer Name Role Phone Name, Martín MARKS Primary Care Provider [phone] Reason for Visit * Reason Comments Med Refill Encounter Details Date Type Department Care Team ([facility] st Contact Info) Description 11/26/2024 Refill [facility] MED[facility]INE [address] [place], [place] [phone] Name, MD Martín [address] [place] [address] Insomnia, unspecified type Social History Tobacco Use [...] 1:30 PM EDT Office Visit [facility] MED[facility] [address] [place] [address] NameMartín MD [address] [place] [address] 03/18/2025 10:00 AM EDT Office Visit [facility] ADULT DENTAL [address] [place] [address] Erica, Kasia [address] [place] [address] documented as of this encounter Visit Diagnoses Diagnosis Insomnia, unspecified type documented in this encounter Additional Health Concerns Assessment Noted Time PHQ-9 Depression Total Score: 22 024 11:54 AM EST documented as of this encounter Care Teams Can Repairer Relationship Specialty Start Date End Date Name, MD Martín [address] [place] [id number] PCP - General Family Medicine 07/18/15 documented as of this encounter
--- OUTSIDE RECORDS SUMMARY | 2025-01-27 09:48 | XMS_ITS | Encounter Summary ---
Author Organization [employer] Address [address] [facility] 7t [place] [address] Care Team Providers Care Personal Lines Insurance Advisor Name Role Phone Name, Martín MARKS Primary Care Provider [phone] Reason for Visit * Reason Comments Med Refill Encounter Details Date Type Department Care Team ([facility] st Contact Info) Description 01/21/2024 Refill [facility] MEDICINE [address] [place], [place] [phone] Name, MD Martín 230 [place] [address] Insomnia, unspecified type Social History Tobacco Use [...] Description 02/14/2025 1:30 PM EDT Office Visit [facility] MEDICINE [address] [place] [address] NameMartín MD [address] [place] [address] 03/18/2025 10:00 AM EDT Office Visit [facility] ADULT DENTAL [address] [place] [address] Erica, Kasia [address] [place] [address] documented as of this encounter Visit Diagnoses Diagnosis Insomnia, unspecified type documented in this encounter Additional Health Concerns Assessment Noted Time PHQ-9 Depression Total Score: 10 024 1:21 PM EDT documented as of this encounter Care Teams Personal Lines Insurance Advisor Relationship Specialty Start Date End Date Name, MD Martín [address] [place] [address] PCP - General Family Medicine 07/18/15 documented as of this encounter
--- OUTSIDE RECORDS SUMMARY | 2025-01-27 09:48 | XMS_ITS | Encounter Summary ---
Author Organization [employer] [facility] Address [address] [place] [address] [address] [address] Care Team Providers Care Mold Dresser Name Role Phone Name, Martín MARKS Primary Care Provider [phone] Reason for Visit * Reason Comments Med Refill Encounter Details Date Type Department Care Team (Late st Contact Info) Description 09/25/2022 Refill [facility] MED[facility] [address] [place] [phone] NameMartín MD [address] [place] [address] [phone] Insomnia, unspecified type Social History Tobacco Use [...] Description 02/14/2025 1:30 PM EDT Office Visit [facility] [address] [place] [address] [phone] NameMartín MD [address] [place] [address] 03/18/2025 10:00 AM EDT Office Visit [facility] ADULT DENTAL [address] [place] [address] Kasia Maldonado [address] [place], [place] [phone] documented as of this encounter Visit Diagnoses Diagnosis Insomnia, unspecified type documented in this encounter Care Teams Mold Dresser Relationship Specialty Start Date End Date Name, MD Martín 230 [place] [address] PCP - General Family Medicine 07/18/15 documented as of this encounter
--- OUTSIDE RECORDS SUMMARY | 2025-01-27 09:48 | XMS_ITS | Encounter Summary ---
Author Organization [employer] Address [address] [place] [address] [address] [place] [address] Care Team Providers Care Ammunition Assembly Ii Laborer Name Role Phone Name, Martín MARKS Primary Care Provider Encounter Details Date Type Department Care Team (Latest Contact Info) Description 07/26/2019 Abstract [facility] CONVERSIONS Dental, Provider, DDS Social History Tobacco [...] 1:30 PM EDT Office Visit [facility] MEDICINE [address] [place] [address] Name, MD Martín [address] [place] [address] 03/18/2025 10:00 AM EDT Office Visit [facility] ADULT DENTAL [address] [place] [address] Long Maldonadoaris [address] [place] [address] documented as of this encounter Visit Diagnoses Not on filedocumented in this encounter Care Teams Ammunition Assembly Ii Laborer Relationship Specialty Start Date End Date NameMartín MD [address] [place] [phone] PCP - General Family Medicine 07/18/15 documented as of this encounter
== END 2025-01-27 09:08 | disposition home or self-care (01) ==
LOC: HO.HGS 08:44
PROVIDERS: PCP Internal Medicine Geriatric Medicine; Visit Provider Surgery
DX: K42.9 Umbilical hernia without obstruction or gangrene (principal)
CPT/HCPCS: 99213

== ENCOUNTER → 2025-01-27 08:44 | Outpatient (BNVA) | payer OTHER, SELFPAY | PROVIDERS: PCP Internal Medicine Geriatric Medicine; Visit Provider Surgery | DX: K42.9 Umbilical hernia without obstruction or gangrene (principal) | CPT/HCPCS: 99212 ==

== ENCOUNTER 2025-02-15 11:40 | Outpatient (REF) | payer OTHER, SELFPAY ==
--- OUTSIDE RECORDS SUMMARY | 2025-02-14 13:30 | XMS_ITS | Encounter Summary ---
Author Organization [employer] Address 75 [facility] 7t [place] [address] Care Team Providers Care Systems Lead Name Role Phone Name, Martín MARKS Primary Care Provider [phone] Reason for Visit * Reason Comments Follow-up Encounter Details Date Type Department Care Team ([facility] st Contact Info) Description 02/14/2025 1:30 PM EDT Office Visit [facility] MEDICINE [address] [place], [place] [phone] Name, MD Martín 230 [place] [address] Essential hypertension (Primary Dx); Chronic pain of right knee; Screening for cholesterol level; Insomnia, unspecified type Social History Tobacco Use [...] housing situation today? I have solange kennedy 02/14/[address] you li ve. Do you have problems with any of the following? None of the above 02/14/2025 Food Insecurity Answer Date Recorded Within the past 12 months, y ou worried that your food would run out before you got money to buy more: Never True 02/14/2025 Within the past 12 months,th e food you bought just didn't last and you didn't have enough money to get more: Never True Transportation Answer Date Recorded In the past 12 months, has l ack of transportation kept you from medical appts, meetings, work or from getting things needed for daily living? No 02/14/2025 Utilities Answer Date Recorded In the past 12 months, has t he electric, gas, oil or water company threatened to shut off services in your home? No 02/14/2025 Depression Answer Date Recorded Patient Health Questionnaire-2 Score 6 04/06/2024 Internet Access Answer Date Recorded Internet Access Q1 Yes 02/14/2025 Internet Access Q2 Not on file 02/14/2025 Comments No Sex and Gender Information Value Date Recorded Sex Assigned at Female 03/18/2022 10:20 AM EDT Legal Sex Female 10:20 AM EDT Gender Identity Female 03/18/2022 10:20 AM EDT Sexual Orientation Don't know 03/18/2022 10 :20 AM EDT documented as of this encounter Last Filed Vital Signs Vital Sign Reading Time Taken Comments Blood Pressure 130/80 02/14/2025 1:20 PM EDT Pulse 93 02/14/2025 1:20 PM EDT Temperature 35.7 C (96.2 F) 02/14/2025 1:20 PM EDT Respiratory Rate 20 02/14/2025 1:20 PM EDT Oxygen Saturation 93% 02/14/2025 1:20 PM EDT Inhaled Oxygen Concentration - - Weight 66.3 kg (146 lb 3.2 oz) 02/14/2025 1:20 P M EDT Height 149.9 cm (4' 11 ) 02/14/2025 1:20 PM EDT Body Mass Index 29.53 02/14/2025 1:20 PM EDT documented in this encounter Progress Notes * Martín Pittman MD - 02/14/2025 1:30 PM EDT Subjective Patient ID: Wendie Abdalla is a 74 y.o. female who presents for Follow-up. Patient comes for a follow-up visit. Overall she is doing well. She has discontinued the use of most of her medications. She tells me BP is well- controlled without the use of any medication at home.She also stopped using her statin many months ago (she was using this for high cholesterol for primary prevention of cardiovascular disease). She has been using topical Voltaren gel with symptomatic improvement of her chronic knee pain. She continues using Ambien for sleep. She tells me she discontinued the use of losartan because of medication causes her an itchy rash onthe anterior chest. In the past she was on amlodipine for treatment of hypertension that she discontinued because of leg swelling. She did not have any side effects to the atorvastatin but she does not like to use medications in general. She refused flu vaccine today. Review of Systems Constitutional: Negative for chills and fever. HENT: Negative for sore throat. Respiratory: Negative for cough, shortness of breath and wheezing. Cardiovascular: Negative for chest pain, palpitations and leg swelling. Gastrointestinal: Negative for abdominal pain. Objective Vitals: 02/14/25 1320 BP: 130/80 Pulse: 93 Resp: 20 Temp: 96.2 ??F (35.7 ??C) TempSrc: Temporal SpO2: 93% Weight: 146 lb 3.2 oz (66.3 kg) Height: 4' 11 (1.499 m) Physical Exam Constitutional: Appearance: Normal appearance. Cardiovascular: Rate and Rhythm: Normal rate and regular rhythm. Heart sounds: No murmur heard. No gallop. Pulmonary: Effort: Pulmonary effort is normal. No respiratory distress. Breath sounds: Normal breath sounds. No wheezing. Musculoskeletal: Right lower leg: No edema. Left lower leg: No edema. Neurological: Mental Status: She is alert. Assessment/Plan Diagnoses and all orders for this visit: Essential hypertension Comments: Check blood pressure at home daily. Follow-up televisit with team nurses next week for blood pressure recheck. Chronic pain of right knee Comments: I prescribed topical Voltaren to apply to the right knee as needed. She is also following with orthopedic that is giving her hyaluronic acid derivative injections with little improvement so far. 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 She has been walking daily without the use of a cane or walker and she is congratulated. Orders: - Diclofenac Sodium (Voltaren Arthritis Pain) 1 % gel; Apply to affected joints once a day Screening for cholesterol level Comments: I recommended to check fasting blood work listed below. Orders: - Lipid Panel, Standard; Future Insomnia, unspecified type Comments: The patient tells me she is about to travel on vacation. She would like refill for Ambien for 60 days with her next refill. Future Appointments Date Time Provider Department Center 02/28/2025 1:00 PM [facility] BLUE TEAM NURSE MEDICINE [facility] 03/18/2025 10:15 AM Kasia Maldonado ADLT DENT [facility] documented in this encounter Plan of Treatment Upcoming Encounters Date Type Department Care Team (Late st Contact Info) Description 02/28/2025 1:00 PM EDT Telemedicine [facility] MEDICINE [address] [place] [address] 03/08/2025 1:00 PM EDT Office Visit [facility] ADULT DENTAL [address] [place] [address] Kasia Maldonado [address] [place] [address] Scheduled Orders Name Type Priority Associated Diagnoses Orde r Schedule Lipid Panel, Standard Lab Routine Screening for cholesterol level Expected: 02/14/2025 (Approximate), Expires: 02/14/2026 documented as of this encounter Visit Diagnoses Diagnosis Essential hypertension- Primary Unspecified essential hypertension Chronic pain of right knee Screening for cholesterol level Insomnia, unspecified type documented in this encounter Additional Health Concerns Assessment Noted Time PHQ-9 Depression Total Score: 22 024 11:54 AM EST documented as of this encounter Care Teams Systems Lead Relationship Specialty Start Date End Date Name, MD Martín [address] [place] [address] PCP - General Family Medicine 07/18/15 documented as of this encounter
--- OUTSIDE RECORDS SUMMARY | 2025-02-15 13:06 | XMS_ITS | Encounter Summary ---
Author Organization [employer] [facility] Address [address] [facility] [address] [place] [address] Care Team Providers Care Director University Name Role Phone Name, Martín MARKS Primary Care Provider Encounter Details Date Type Department Care Team (Latest Contact Info) Description 11/06/2020 Abstract [facility] CONVERSIONS Dental, Provider, DDS Social [...] Info) Description 02/28/2025 1:00 PM EDT Telemedicine [facility] MEDICINE [address] [place] [address] 03/08/2025 1:00 PM EDT Office Visit [facility] ADULT DENTAL [address] [place] [address] Erica, Kasia [address] [place] [address] documented as of this encounter Visit Diagnoses Not on filedocumented in this encounter Care Teams Director University Relationship Specialty Start Date End Date Name, MD Martín [address] [place] [address] PCP - General Family Medicine 07/18/15 documented as of this encounter
--- OUTSIDE RECORDS SUMMARY | 2025-02-15 13:06 | XMS_ITS | Encounter Summary ---
Author Organization [employer] Address [address] [facility] 7t [place] [address] Care Team Providers Care Rotor Balancer Name Role Phone Name, Martín MARKS Primary Care Provider [phone] Reason for Visit * Reason Comments Med Refill Encounter Details Date Type Department Care Team ([facility] st Contact Info) Description 01/21/2024 Refill [facility] MEDICINE 230 [place], [place] [phone] Name, MD Martín [address] [place] [address] Insomnia, unspecified type Social History Tobacco Use [...] Info) Description 02/28/2025 1:00 PM EDT Telemedicine [facility] MEDICINE [address] [place] [address] 03/08/2025 1:00 PM EDT Office Visit [facility] ADULT DENTAL [address] [place] [address] Erica, Kasia [address] [place] [address] documented as of this encounter Visit Diagnoses Diagnosis Insomnia, unspecified type documented in this encounter Additional Health Concerns Assessment Noted Time PHQ-9 Depression Total Score: 10 024 1:21 PM EDT documented as of this encounter Care Teams Rotor Balancer Relationship Specialty Start Date End Date Name, MD Martín [address] [place] [address] PCP - General Family Medicine 07/18/15 documented as of this encounter
--- OUTSIDE RECORDS SUMMARY | 2025-02-15 13:06 | XMS_ITS | Encounter Summary ---
Author Organization [employer] Address [address] [facility] [address] [place] [address] Care Team Providers Care Supervisor Car And Yard Name Role Phone Name, Martín MARKS Primary Care Provider [phone] Reason for Visit * Reason Onset Date Comments Med Refill 10/21/2022 Encounter Details Date Type Department Care Team (Late st Contact Info) Description 10/21/2022 Refill [facility] MEDICINE 230 [place], [place] [phone] Name, MD Martín [address] [place] [address] Insomnia, unspecified type Social History Tobacco Use [...] Info) Description 02/28/2025 1:00 PM EDT Telemedicine [facility] MEDICINE [address] [place] [address] 03/08/2025 1:00 PM EDT Office Visit [facility] ADULT DENTAL [address] [place] [address] Kasia Maldonado [address] [place] [address] documented as of this encounter Visit Diagnoses Diagnosis Insomnia, unspecified type documented in this encounter Care Teams Supervisor Car And Yard Relationship Specialty Start Date End Date Name, MD Martín [address] [place] [address] PCP - General Family Medicine 07/18/15 documented as of this encounter
--- OUTSIDE RECORDS SUMMARY | 2025-02-15 13:06 | XMS_ITS | Encounter Summary ---
Author Organization [employer] [facility] Address [address] [facility] [address] [address] Care Team Providers Care Digital Engineer Name Role Phone Name, Martín MARKS Primary Care Provider [phone] Encounter Details Date Type Department Care Team (Latest Contact Info) Description 11/01/2021 Abstract [facility] CONVERSIONS Dental, Provider, DDS Social History [...] Info) Description 02/28/2025 1:00 PM EDT Telemedicine [facility] MEDICINE [address] [place] [address] 03/08/2025 1:00 PM EDT Office Visit [facility] ADULT DENTAL [address] [place] [address] Erica, Kasia [address] [place] [address] documented as of this encounter Visit Diagnoses Not on filedocumented in this encounter Care Teams Digital Engineer Relationship Specialty Start Date End Date Name, MD Martín [address] [place] [address] PCP - General Family Medicine 07/18/15 documented as of this encounter
--- OUTSIDE RECORDS SUMMARY | 2025-02-15 13:06 | XMS_ITS | Encounter Summary ---
Author Organization [employer] Address [address] [facility] 7t [place] [address] Care Team Providers Care Superintendent Measurement Name Role Phone Name, Martín MARKS Primary Care Provider [phone] Reason for Visit * Reason Comments Med Refill Encounter Details Date Type Department Care Team ([facility] st Contact Info) Description 11/26/2024 Refill [facility] MEDICINE 230 [place], [place] [phone] Name, MD Martín [address] [place] [address] Insomnia, unspecified type Social History Tobacco Use [...] Info) Description 02/28/2025 1:00 PM EDT Telemedicine [facility] MEDICINE [address] [place] [address] 03/08/2025 1:00 PM EDT Office Visit [facility] ADULT DENTAL [address] [place] [address] Erica Kasia [address] [place] [address] documented as of this encounter Visit Diagnoses Diagnosis Insomnia, unspecified type documented in this encounter Additional Health Concerns Assessment Noted Time PHQ-9 Depression Total Score: 22 024 11:54 AM EST documented as of this encounter Care Teams Superintendent Measurement Relationship Specialty Start Date End Date Name, MD Martín [address] [place] [address] PCP - General Family Medicine 07/18/15 documented as of this encounter
--- OUTSIDE RECORDS SUMMARY | 2025-02-15 13:06 | XMS_ITS | Clinical Summary ---
Author Organization [employer] Address [address] [facility] 7t [place] [address] Care Team Providers Care Intellectual Property Legal Assistant Name Role Phone Name, Martín MARKS Primary Care Provider [phone] Allergies No known active allergies Medications budesonide (Pulmicort) 0.5 MG/2ML nebulizer solution USE [...] mouth Once per day. 07/20/19 17 Active albuterol (Ventolin HFA) 108 (90 Base) MCG/ACT inhaler INHALE 2 PUFFS EVERY 6 HOURS IF NEEDED FOR WHEEZING. 18 g 2 05/26/19 24 Active omeprazole (PriLOSEC) [address] capsule 08/12/19 24 Active dicyclomine (Bentyl) 10 MG capsule 07/14/19 25 Active etodolac (Lodine) 200 MG capsuleIndicati ons:Chronic pain of right knee,Chronic right hip pain TAKE 1 CAPSULE BY MOUTH TWICE A DAY 60 capsule 1 01/04/20 25 Active zolpidem (Ambien) 10 MG tabletIndicatio ns:Insomnia, unspecified type TAKE 1 TABLET BY MOUTH AT BEDTIME IF NEEDED FOR SLEEP 30 tablet 01/21/20 25 Active loratadine (Claritin) 10 MG tabletIndicatio ns:Allergic rhinitis, unspecified seasonality, unspecified trigger TOME 1 TABLETA POR VIA ORAL TODOS LOS BAIN EN LA MANANA 90 tablet 1 02/09/20 25 Active Diclofenac Sodium (Voltaren Arthritis Pain) 1 % gelIndications: Chronic pain of right knee Apply to affected joints once a day 50 g 2 02/15/20 25 Active atorvastatin (Lipitor) 20 MG tablet Take 20 mg by mouth Once per day. 02/27/20 22 025 Discontinued(In effective) methocarbamol (Robaxin) 750 MG tablet Take 1 tablet (750 mg) by mouth 3 times daily for 10 days. 30 tablet 04/03/20 025 Discontinued(Th erapy completed) losartan (Cozaar) 25 MG tablet 09/09/19 24 025 Discontinued(Si de effects) amLODIPine (Norvasc) 5 MG tablet Take 1 tablet by mouth Once per day. 025 Discontinued(Th erapy completed) amoxicillin-cla vulanate (Augmentin) 875-125 MG tablet 07/14/19 25 025 Discontinued(Th erapy completed) loratadine (Claritin) 10 MG tabletIndicatio ns:Allergic rhinitis, unspecified seasonality, unspecified trigger TOME 1 TABLETA POR VIA ORAL TODOS LOS BAIN EN LA MANANA 90 tablet 1 08/25/19 25 025 Discontinued zolpidem (Ambien) 10 MG tabletIndicatio ns:Insomnia, unspecified type TAKE 1 TABLET BY MOUTH AT BEDTIME IF NEEDED FOR SLEEP 30 tablet 12/11/19 25 025 Discontinued(Re order (will not trigger notification to Pharmacy)) Active Problems Problem Noted Date Diagnosed Date Osteoarthritis of left shoulder 03/02/2024 Left hand pain 03/02/2024 Hospital discharge follow-up 03/02/2024 Overview (03/02/2024): [place] [facility]read[place] to x 1 day-biotics discharge p.o. antibiotics [...] Encounters Date Type Department Care Team Description 02/14/2025 1:30 PM EDT Office Visit [facility] [address] [place] [address] NameMartín MD Essential hypertension (Primary Dx); Chronic pain of right knee; Screening for cholesterol level; Insomnia, unspecified type 02/14/2025 Travel 02/11/2025 Telephone [facility] [address] [place] [address] Marcelle Jeter MA chart prep 02/05/2025 Refill [facility] [address] [place] [address] NameMartín MD Allergic rhinitis, unspecified seasonality, unspecified trigger 01/20/2025 Refill [facility] [address] [place] [address] NameMartín MD Insomnia, unspecified type 01/02/2025 Refill [facility] [address] [place] [address] NameMartín MD Chronic pain of right knee; Chronic right hip pain 12/10/2024 Refill [facility] [address] [place] [address] NameMartín MD Insomnia, unspecified type 11/26/2024 Refill [facility] [address] [place] [address] NameMartín MD Insomnia, unspecified type from Last 3 Months Immunizations Immunization Administration [...] Mass Index 29.53 02/14/2025 1:20 PM EDT Plan of Treatment Upcoming Encounters Date Type Department Care Team (Late st Contact Info) Description 02/28/2025 1:00 PM EDT Telemedicine [facility] [address] [place] [address] 03/08/2025 1:00 PM EDT Office Visit [facility]ULT [facility] [address] [place] [address] Kasia Maldonado [address] [place] [address] Health Maintenance Due Date Last Done Comments CT Colonography 1950 FIT DNA/Cologuard 1950 FOBT 1950 Sigmoidoscopy 1950 Zoster Vaccines (1 of 2) 2002 RSV Patients and Patients Aged 60 years or older (1 - Risk 60-74 years 1-dose series) 2012 FIT 07/15/2023 07/15/2022, 07/15/2022 Depression Monitoring 10/04/2024 04/06/2024, 024 Dental X-Ray: Full Mouth 11/07/2024 11/06/2021 COVID-19 Vaccine ( season) 2025 01/02/2022, 01/02/2022, 10/30/2021, Additional history exists Influenza Vaccine (#1) 2025 01/30/2015, 2013 Dental Oral Exam 03/05/2025 09/02/2024, 10/2023, 08/12/2022 Dental Prophylaxis 03/05/2025 09/02/2024, 0 01/01/2024, 06/24/2023, Additional history exists Alcohol/Substance Use Screening 04/06/2025 04/06/2024 Dental X-Ray: Bitewings 09/03/2025 09/03/19 25, 06/24/2023, 08/12/2022 SDOH Screening 02/14/2026 02/14/2025 Tobacco Screening 02/14/2026 02/14/2025 DTaP/Tdap/Td Vaccines (2 - Td or Tdap) [...] Procedure Name Priority Date/Time Associated Diagnosis Comments PROPHYLAXIS - ADULT Routine 09/02/2024 2 :00 [...] Relevant to Health Maintenance Results * BI Mammogram Diagnostic Tomosynthesis Right (06/23/2024 9:00 AM EST) Anatomical Region Laterality Modality Breast Right Mammography 06/23/2024 9:00 AM EST Narrative 06/23/2024 10:34 AM EST [facility] [address] [place] [address] Mammography Report Signed with Addenda Patient: Wendie Faye MR #: [id number] : 1950 Acct:[id number] Age/Sex: 73 / F ADM Date: 06/23/24 Loc: HO.MAMMO Attending Dr: Tim Cifuentes MD Ordering Physician: Tim Cifuentes MD Results: Date of Service: 06/23/24 Follow Up: Procedure(s): MM tomosynthesis diagnostic RT Accession Number(s): [id number] cc: Tim Cifuentes MD; Name,Martín MARKS ADDENDUM [...] by: Reina Rod DO 06/23/2024 10:30 AM [facility] Dictated By: Renia Rod DO Signed By: <Electronically signed by Reina Rod DO in OV> 06/23/24 1030 DD/ 0900 TD/TT: 06/23/24 0945 Home Mortgage Disclosure Act Specialist: Procedure Note Donotuseinterpreter, Image - 07/02/2024 [facility] [address] [place], [place] [address] Mammography Report Signed with Addenda Patient: Wendie Faye MMR #: [id number] : 3Acct:[id number] Age/Sex: 73 / FADM Date: 06/23/24 Loc: HO.MAMMO Attending Dr: Tim Cifuentes MD Ordering Physician: Tim Cifuentes MDResults: Date of Service: 06/23/24Follow Up: Procedure(s): MM tomosynthesis diagnostic RT Accession Number(s): [id number] cc: Tim Cifuentes MD; Name,Martín MARKS ADDENDUM [...] 06/23/24 1030 DD/ 0900 TD/TT: 06/23/24 0945 Home Mortgage Disclosure Act Specialist: [facility] External Provider IMG BI PROCEDURES Edited Result - Final * Hepatitis C Ab (05/10/2024 1:37 PM EST) Hepatitis C Antibody Nonreactive Nonreactive [facility] Comment:Antibodies to HCV no t detected; does not exclude early acuteHCV infection. 05/10/2024 1:37 PM EST 05/10/2024 4:01 PM EST Generic External Data Provider LAB BLOOD ORDERAB LES Final Result Performing Organization Address City/State/[facility] Co de Phone Number [facility] [address] [place] [phone] * (ABNORMAL) Colonoscopy (08/12/2023) Pathologist [facility] Colonoscopy Abnormal(A ) Normal Martín Pittman MD HEALTH MAINTENANCE Final Result * (ABNORMAL) Lipid Panel, Standard (07/24/2022 9:07 AM EST) Cholesterol, Total 206(H) <200 mg/dL [facility] [facility] HDL Cholesterol 40(L) > OR = 50 mg/dL [facility] Triglycerides 252(H) <150 mg/dL [facility] Comment: If a non-fasting specimen was collected, consider repeat triglyceride testing on a fasting specimen if clinically indicated. Arian et al. J. of Clin. Lipidol. 2015;9:129-169. LDL Cholesterol 127(H) mg/dL (calc) [facility] [employer] [facility] Comment: Reference range: <100 Desirable range <100 mg/dL for primary prevention; <70 mg/dL for patients with CHD or diabetic patients with > or = 2 CHD risk factors. LDL-C is now calculated using the Amy calculation, which is a validated novel method providing better accuracy than the Friedewald equation in the estimation of LDL-C. James SS et al. SHEREE. 2013;310(19): 5849-7586 (http://education.Kereos/faq/DZV679) Chol/HDLC Ratio 5.2(H) <5.0 (calc) [facility] Non-HDL Cholesterol 166(H) <130 mg/dL (calc) [facility] Comment: For patients with diabetes plus 1 major ASCVD risk factor, treating to a non-HDL-C goal of <100 mg/dL (LDL-C of <70 mg/dL) is considered a therapeutic option. Blood Venous blood specimen / Unknown 07/24/2022 9:07 AM EST 07/24/2022 9:08 AM EST Narrative [facility] - 07/24/2022 9:39 PM EST FASTING:NO FASTING: NO Martín Name LAB BLOOD ORDERABLES Final Resul t [facility] [address], [place] [address] [facility] [employer] [facility] [address] [facility], (N[address]) [place] [address] * Fecal immunochemical (07/15/2022) Fecal Immunoassay Test (External) Negative Stool Rectal contents / Unknown [facility] Provider LAB BODY FLUIDS AND STOOL S ORDERABLES Final Result from Last 3 Months or Most Recently Relevant to Health Maintenance Insurance [employer] OPTIONS (HMO D-SNP) [place] [id number] DENTAL [facility] Care Teams Intellectual Property Legal Assistant Relationship Specialty Start Date End Date Name, MD Martín [address] [place] [address] PCP - General Family Medicine 07/18/15
--- OUTSIDE RECORDS SUMMARY | 2025-02-15 13:06 | XMS_ITS | Encounter Summary ---
Author Organization [employer] Address [address] [facility] 7t [place] [address] Care Team Providers Care Astronomy Department Chair Name Role Phone Name, Martín MARKS Primary Care Provider [phone] Encounter Details Date Type Department Care Team (Latest Contact Info) Description 02/14/2025 Travel Social History Tobacco Use Types Packs/Day Years [...] Info) Description 02/28/2025 1:00 PM EDT Telemedicine [facility] [address] [place] [address] 03/08/2025 1:00 PM EDT Office Visit [facility] ADULT DENT[facility] [address] [place] [address] EricaKasia [address] [place] [address] documented as of this encounter Visit Diagnoses Not on filedocumented in this encounter Additional Health Concerns Assessment Noted Time PHQ-9 Depression Total Score: 22 024 11:54 AM EST documented as of this encounter Care Teams Astronomy Department Chair Relationship Specialty Start Date End Date Name, MD Martín [address] [place] [address] PCP - General Family Medicine 07/18/15 documented as of this encounter
--- OUTSIDE RECORDS SUMMARY | 2025-02-15 13:06 | XMS_ITS | Encounter Summary ---
Author Organization [employer] Address [address] [facility] 7t [place] [address] Care Team Providers Care Roller Pneumatic Name Role Phone Name, Martín MARKS Primary Care Provider [phone] Encounter Details Date Type Department Care Team (Late st Contact Info) Description 03/25/2023 Orders Only [facility] [address] [place], [place] [phone] Name, MD Martín [address] [place] [address] Social History Tobacco Use Types Packs/Day Years [...] Info) Description 02/28/2025 1:00 PM EDT Telemedicine [facility] [address] [place] [address] 03/08/2025 1:00 PM EDT Office Visit [facility] ADULT D[facility] [address] [place] [address] Kasia Maldonado [address] [place] [address] documented as of this encounter Visit Diagnoses Not on filedocumented in this encounter Care Teams Roller Pneumatic Relationship Specialty Start Date End Date Name, MD Martín [address] [place] [address] PCP - General Family Medicine 07/18/15 documented as of this encounter
--- OUTSIDE RECORDS SUMMARY | 2025-02-15 13:06 | XMS_ITS | Encounter Summary ---
Author Organization [employer] Address [address] [facility] 7t [place] [address] Care Team Providers Care Durability Technician Name Role Phone Name, Martín MARKS Primary Care Provider [phone] Reason for Visit * Reason Onset Date Comments chart prep 02/11/2025 Encounter Details Date Type Department Care Team (Late st Contact Info) Description 02/11/2025 Telephone [facility] [address] [place] [address] Marcelle Jeter MA chart prep Social History Tobacco Use Types Packs/Day Years [...] encounter Miscellaneous Notes * Telephone Encounter - Marcelle Jeter MA - 02/11/2025 10:31 AM EDT Chart Prep Labs: done Images: done Referrals: complete-notes in chart 11/24/24 1:30 PM [facility] Orth[facility]ics Jessema Linton Joanne 12/23/24 1:30 PM [facility] Orthopedics [place] Vaccines due: Covid, Flu, RSV, and Zoster Screenings: not applicable Overdue care gaps: SDOH and Oral health screening documented in this encounter Plan of Treatment Upcoming Encounters Date Type Department Care Team (Late st Contact Info) Description 02/28/2025 1:00 PM EDT Telemedicine [facility] [address] [place] [address] 03/08/2025 1:00 PM EDT Office Visit [facility] ADULT DENT[facility] [address] [place] [address] Long Maldonadoaris [address] [place] [address] documented as of this encounter Visit Diagnoses Not on filedocumented in this encounter Additional Health Concerns Assessment Noted Time PHQ-9 Depression Total Score: 22 024 11:54 AM EST documented as of this encounter Care Teams Durability Technician Relationship Specialty Start Date End Date Name, MD Martín [address] [place] [address] PCP - General Family Medicine 07/18/15 documented as of this encounter
--- OUTSIDE RECORDS SUMMARY | 2025-02-15 13:06 | XMS_ITS | Encounter Summary ---
Author Organization [employer] [facility] Address [address] [place] [address] [address] [place] [address] Care Team Providers Care Marketing Proposal Specialist Name Role Phone Name, Martín MARKS Primary Care Provider [phone] Reason for Visit * Reason Comments Med Refill Encounter Details Date Type Department Care Team (Late st Contact Info) Description 07/26/2022 Refill [facility] [address] [place] [address] [phone] Name, MD Martín [address] [place] [address] Insomnia, unspecified type Social History Tobacco Use [...] Info) Description 02/28/2025 1:00 PM EDT Telemedicine [facility] [address] [place] [phone] 03/08/2025 1:00 PM EDT Office Visit [facility] ADULT DENTAL [address] [place] [address] [phone] Kasia Maldonado [address] [place] [address] documented as of this encounter Visit Diagnoses Diagnosis Insomnia, unspecified type documented in this encounter Care Teams Marketing Proposal Specialist Relationship Specialty Start Date End Date Name, MD Martín [address] [place] [address] PCP - General Family Medicine 07/18/15 documented as of this encounter
--- OUTSIDE RECORDS SUMMARY | 2025-02-15 13:06 | XMS_ITS | Patient Health Record ---
Author Organization [employer] Address [address] [place] [phone] Care Team Providers Care Medical Records Custodian Name Role Phone Jaylon Matias Unavailable [phone] Reason For Referral No Information Plan Of Treatment No Information
--- OUTSIDE RECORDS SUMMARY | 2025-02-15 13:06 | XMS_ITS | Encounter Summary ---
Author Organization [employer] Address [address] [facility] 7t [place] [address] Care Team Providers Care Rural Route Mail Carrier Name Role Phone Name, Martín MARKS Primary Care Provider [phone] Reason for Visit * Reason Onset Date Comments Call Back Request 07/11/2023 Encounter Details Date Type Department Care Team ([facility] st Contact Info) Description 07/11/2023 Telephone [facility] [address] [place], [place] [phone] Name, MD Martín [address] [place] [address] Call Back Request Social History Tobacco Use [...] T/C to pt. [place] below [place] [employer] [place] - [id number], pt. States she has already apt. For CT scan, pt. Is all set right now. Advised to give call to [facility] if any question or concerns. * Telephone Encounter - Sharon Langford - 07/11/2023 11:45 AM EST Tc from pt requesting order for ct scan on left hand stated talk with PCP about this please contactpt for clarifications. documented in this encounter Plan of Treatment Upcoming Encounters Date Type Department Care Team (Late st Contact Info) Description 02/28/2025 1:00 PM EDT Telemedicine [facility] [address] [place] [address] 03/08/2025 1:00 PM EDT Office Visit [facility] ADULT D[facility] [address] [place] [address] Kasia Maldoando [address] [place] [address] documented as of this encounter Visit Diagnoses Not on filedocumented in this encounter Care Teams Rural Route Mail Carrier Relationship Specialty Start Date End Date Name, MD Martín [address] [place] [address] PCP - General Family Medicine 07/18/15 documented as of this encounter
--- OUTSIDE RECORDS SUMMARY | 2025-02-15 13:06 | XMS_ITS | Encounter Summary ---
Author Organization [employer] Address [address] [facility] 7t [place] [address] Care Team Providers Care Machine Baster Name Role Phone Name, Martín MARKS Primary Care Provider [phone] Reason for Visit * Reason Onset Date Comments Hospital Follow-up 04/12/2024 Encounter Details Date Type Department Care Team ([facility] st Contact Info) Description 04/12/2024 Telephone [facility] [address] [place], [place] [phone] Name, MD Martín [address] [place] [address] Hospital Follow-up Social History Tobacco Use Types [...] from pt requesting a HDF appt. Hospital: [facility] Date of admission: 04/07/24 Discharge date: 04/12/24 Diagnosed: intestinal infection *Send message to [facility] Clinical Care Coordinators documented in this encounter Plan of Treatment Upcoming Encounters Date Type Department Care Team (Late st Contact Info) Description 02/28/2025 1:00 PM EDT Telemedicine [facility] [address] [place] [address] 03/08/2025 1:00 PM EDT Office Visit [facility] ADULT DENTAL [address] [place] [address] Kasia Maldonado [address] [place] [address] documented as of this encounter Visit Diagnoses Not on filedocumented in this encounter Additional Health Concerns Assessment Noted Time PHQ-9 Depression Total Score: 22 024 11:54 AM EST documented as of this encounter Care Teams Machine Baster Relationship Specialty Start Date End Date Name, MD Martín [address] [place] [address] PCP - General Family Medicine 07/18/15 documented as of this encounter
--- OUTSIDE RECORDS SUMMARY | 2025-02-15 13:06 | XMS_ITS | Encounter Summary ---
Author Organization [employer] Address [address] [facility] 7t [place] [address] Care Team Providers Care Manpower Development Manager Name Role Phone Name, Martín MARKS Primary Care Provider [phone] Reason for Visit * Reason Comments Med Refill Encounter Details Date Type Department Care Team ([facility] st Contact Info) Description 04/09/2023 Refill [facility] [address] [place], [place] [phone] Name, MD Martín [address] [place] [address] Social History Tobacco Use Types Packs/Day Years [...] Info) Description 02/28/2025 1:00 PM EDT Telemedicine [facility] [address] [place] [address] 03/08/2025 1:00 PM EDT Office Visit [facility] ADULT DENT[facility] [address] [place] [address] Kasia Maldonado [address] [place] [address] documented as of this encounter Visit Diagnoses Not on filedocumented in this encounter Care Teams Manpower Development Manager Relationship Specialty Start Date End Date Name, MD Martín [address] [place] [address] PCP - General Family Medicine 07/18/15 documented as of this encounter
--- OUTSIDE RECORDS SUMMARY | 2025-02-15 13:06 | XMS_ITS | Encounter Summary ---
Author Organization [employer] Address [address] [facility] 7t [place] [address] Care Team Providers Care Forestry Crew Chief Name Role Phone Name, Martín MARKS Primary Care Provider [phone] Reason for Visit * Reason Comments Med Refill Encounter Details Date Type Department Care Team ([facility] st Contact Info) Description 05/24/2023 Refill [facility] MED[facility]INE [address] [place], [place] [phone] Name, MD Martín [address] [place] [address] Allergic rhinitis, unspecified seasonality, unspecified trigger Social [...] Info) Description 02/28/2025 1:00 PM EDT Telemedicine [facility] MEDICINE [address] [place] [address] 03/08/2025 1:00 PM EDT Office Visit [facility] ADULT DENTAL [address] [place] [address] Kasia Maldonado [address] [place] [address] documented as of this encounter Visit Diagnoses Diagnosis Allergic rhinitis, unspecified seasonality, unspecified trigger documented in this encounter Care Teams Forestry Crew Chief Relationship Specialty Start Date End Date Name, MD Martín [address] [place] [address] PCP - General Family Medicine 07/18/15 documented as of this encounter
--- OUTSIDE RECORDS SUMMARY | 2025-02-15 13:06 | XMS_ITS | Encounter Summary ---
Author Organization [employer] Address [address] [facility] [address] [place] [address] Care Team Providers Care Storage Management Consultant Name Role Phone Name, Martín MARKS Primary Care Provider Encounter Details Date Type Department Care Team (Late Contact Info) Description 10/28/2022 Abstract [facility] MEDICINE [address] [place] [phone] Name, MD Martín [address] [place] [address] Social History Tobacco Use Types Packs/Day Years [...] Info) Description 02/28/2025 1:00 PM EDT Telemedicine [facility] MEDICINE [address] [place] [address] 03/08/2025 1:00 PM EDT Office Visit [facility] ADULT DENTAL [address] [place] [address] [phone] Kasia Maldonado [address] [place] [address] documented as of this encounter Visit Diagnoses Not on filedocumented in this encounter Care Teams Storage Management Consultant Relationship Specialty Start Date End Date Name, MD Martín [address] [place] [address] PCP - General Family Medicine 07/18/15 documented as of this encounter
--- OUTSIDE RECORDS SUMMARY | 2025-02-15 13:06 | XMS_ITS | Encounter Summary ---
Author Organization [employer] Address [address] [facility] 7t [place] [address] Care Team Providers Care Measurement Superintendent Name Role Phone Name, Martín MARKS Primary Care Provider [phone] Encounter Details Date Type Department Care Team ([facility] st Contact Info) Description 03/07/2023 Orders Only [facility] CH[facility] MED & PEDS [address] [place], [place] [phone] Geno Malave LPN Social History Tobacco Use [...] Info) Description 02/28/2025 1:00 PM EDT Telemedicine [facility] MEDICINE [address] [place] [address] 03/08/2025 1:00 PM EDT Office Visit [facility] ADULT DENTAL [address] [place], [place] [phone] Erica, Kasia [address] [place], [place] [phone] documented as of this encounter Procedures Procedure Name Priority Date/Time Associated Diagnosis Comments BI MAMMOGRAM SCREENING TOMOSYNTHESIS BILATERAL Routine 03/11/2023 2:45 PM EDT documented in this encounter Results * BI Mammogram Screening Tomosynthesis Bilateral (03/11/2023 2:45 PM EDT) Anatomical Region Laterality Modality Breast Bilateral Mammography 03/11/2023 2:45 PM EDT Narrative 03/29/2023 1:32 PM [facility] [place] [address] Mammography Report Signed Patient: Wendie Faye MR #: [id number] : 1950 Acct:[id number] Age/Sex: 72 / F ADM Date: 03/11/23 Loc: HO.MAMMO Attending Dr: Martín Pittman MD Ordering Physician: Martín Pittman MD Results: 1Negative Date of Service: 03/11/23 Follow Up: 1 Year From Orig inal Mammogram Procedure(s): MM tomosynthesis screening BI Accession Number(s): [id number] cc: Martín Pittman MD EXAMINATION: MM SCREENING [...] in OV> 03/29/23 1329 DD/ 1445 TD/TT: [employer] Executive: Procedure Note Donotuseinterpreter, Image - 03/29/2023 [facility] [address] [place], [place] [address] Mammography Report Signed Patient: Wendie Faye MMR #: [id number] : 3Acct:[id number] Age/Sex: 72 / FADM Date: 03/11/23 Loc: HO.MAMMO Attending Dr: Martín Pittman MD Ordering Physician: Martín Pittman MDResults: 1Negative Date of Service: 03/11/23Follow Up: 1 Year From Orig ina Mammogram Procedure(s): MM tomosynthesis screening BI Accession Number(s): [id number] cc: Martín Pittman MD EXAMINATION: MM SCREENING [...] in OV> 03/29/23 1329 DD/ 1445 TD/TT: [employer] Executive: us Martín Pittman MD IMG BI PROCEDURES Edited Result - Final documented in this encounter Visit Diagnoses Not on filedocumented in this encounter Care Teams Measurement Superintendent Relationship Specialty Start Date End Date Name, MD Martín [address] [place] [address] PCP - General Family Medicine 07/18/15 documented as of this encounter
--- OUTSIDE RECORDS SUMMARY | 2025-02-15 13:06 | XMS_ITS | Encounter Summary ---
Author Organization [employer] Address [address] [facility] 7t [place] [address] Care Team Providers Care Vacuum System Tester Name Role Phone Name, Martín MARKS Primary Care Provider [phone] Reason for Visit * Reason Onset Date Comments Med Refill 07/22/2023 Encounter Details Date Type Department Care Team ([facility] st Contact Info) Description 07/22/2023 Telephone [facility] MEDICINE [address] [place], [place] [phone] Name, MD Martín [address] [place] [address] Med Refill Social History Tobacco Use Types [...] 10 MG tablet To be sent to: [facility]/pharmacy [address] [place] [address] documented in this encounter Plan of Treatment Upcoming Encounters Date Type Department Care Team (Late st Contact Info) Description 02/28/2025 1:00 PM EDT Telemedicine [facility] MEDICINE [address] [place] [address] 03/08/2025 1:00 PM EDT Office Visit [facility] ADULT DENTAL [address] [place] [address] Erica, Kasia [address] [place] [address] documented as of this encounter Visit Diagnoses Not on filedocumented in this encounter Care Teams Vacuum System Tester Relationship Specialty Start Date End Date Name, MD Martín [address] [place] [address] PCP - General Family Medicine 07/18/15 documented as of this encounter
--- OUTSIDE RECORDS SUMMARY | 2025-02-15 13:06 | XMS_ITS | Encounter Summary ---
Author Organization [employer] Address [address] [place] [address] [address] [place] [address] Care Team Providers Care Costume Design Teacher Name Role Phone Name, Martín MARKS Primary Care Provider [phone] Reason for Visit * Reason Comments Med Refill Encounter Details Date Type Department Care Team (Late st Contact Info) Description 09/25/2022 Refill [facility] MEDICINE [address] [place] [phone] Name, MD Martín [address] [place] [phone] Insomnia, unspecified type Social History Tobacco Use [...] Info) Description 02/28/2025 1:00 PM EDT Telemedicine [facility] MEDICINE [address] [place], [place] [phone] 03/08/2025 1:00 PM EDT Office Visit [facility] ADULT DENTAL [address] [place] [phone] Kasia Maldonado [address] [place] [address] documented as of this encounter Visit Diagnoses Diagnosis Insomnia, unspecified type documented in this encounter Care Teams Costume Design Teacher Relationship Specialty Start Date End Date Name, MD Martín [address] [place] [address] PCP - General Family Medicine 07/18/15 documented as of this encounter
--- OUTSIDE RECORDS SUMMARY | 2025-02-15 13:06 | XMS_ITS | Encounter Summary ---
Author Organization [employer] [facility] Address [address] [facility] [address] [place] [address] Care Team Providers Care Training And Development Officer Name Role Phone Name, Martín MARKS Primary Care Provider [phone] Encounter Details Date Type Department Care Team (Latest Contact Info) Description 07/26/2019 Abstract [facility] CONVERSIONS Dental, Provider, DDS Social History [...] Info) Description 02/28/2025 1:00 PM EDT Telemedicine [facility] MEDICINE [address] [place] [address] 03/08/2025 1:00 PM EDT Office Visit [facility] ADULT DENTAL [address] [place] [address] Erica, Ksaia [address] [place] [address] documented as of this encounter Visit Diagnoses Not on filedocumented in this encounter Care Teams Training And Development Officer Relationship Specialty Start Date End Date Name, MD Martín [address] [place] [address] PCP - General Family Medicine 07/18/15 documented as of this encounter
[2025-02-15 14:18] LABS: Cholesterol 177 mg/dL (<200); HDL Cholesterol 33 mg/dL (>40); Triglycerides 214 mg/dL (<150)
== END 2025-02-15 11:41 | disposition home or self-care (01) ==
LOC: HO.HHCL 11:40
PROVIDERS: PCP Internal Medicine Geriatric Medicine; Visit Provider Internal Medicine Geriatric Medicine
DX: Z13.220 Encounter for screening for lipoid disorders (principal); Z13.6 Encounter for screening for cardiovascular disorders
CPT/HCPCS: 36415; 80061

== ENCOUNTER 2025-05-04 13:36 | Outpatient (AMB) | payer OTHER, SELFPAY ==
--- NOTE | 2025-05-04 13:39 | A.OFFVIS_ITS ---
Vital Signs 05/04/25 13:44 Height 4 ft 11 in Weight 143 lb BMI 28.9 BP 166/85 H Blood Pressure Location Rt brachial Position Sitting Pulse 91 Intake Visit Reasons: 6 month follow up colon resection Intake Note: Bridgett presents for a six month follow-up status post Hand assisted laparoscopic sigmoid resection, mobilization of the splenic flexure, end-to-end anastomosis, extensive lysis of adhesions; intraop flexible sigmoidoscopy. Pt c/o; reports umbilical hernia, bulge, discomfort, denies changes in bowel habits. Hospital Unit Clerk Required: Yes Hospital Unit Clerk Language: Road Equipment Operator Services: Hospital Unit Clerk Offered & Declined Accompanied by: Self / Same As Patient Allergies No Known Allergies Allergy (Verified 05/04/25 13:46) Medication List - Last Reconciled 05/04/25 by Tim Cifuentes MD acetaminophen ER (Tylenol 8 Hour) 650 mg PO Q8H PRN clonazepam 0.5 mg PO BEDTIME docusate sodium (Colace) 100 mg PO BID loratadine 10 mg PO DAILY PRN zolpidem 10 mg PO BEDTIME PRN HPI HPI 6 month follow up colon resection: Details: [age] year old female here for a follow-up for a question of an umbilical hernia. She describes a little ball on her umbilicus. She says he has noticed this for about 4 months now. She describes occasional pain. She denies GI complaints. She thinks that this ?lump? has been increasing in size. She had undergone hand assisted laparoscopic sigmoid resection for recurrent diverticulitis last August,. Overall, she says she feels well. [facility] Medical History Umbilical hernia Fatty liver Snores Breast mass, right Diverticular disease Hospital discharge follow-up Acute diverticulitis Hypertension Syncope and collapse Tendonitis Arthritis Right knee pain Left hand pain Surgical History History of colon resection (08/17/24) Hx of right breast biopsy (06/23/24) Hx of hysterectomy Hx of hemorrhoidectomy Hx of colonoscopy History of hand surgery Status post hardware removal Family History Mother Alzheimer disease Hypertension Dementia Father Hypertension Social History Household Members: Spouse Housing: House Are you a primary intensive care specialist to a significant other at home: No Do you presently have visiting nurse or other home services: Yes Alcohol intake: never Comment: pt refused bed alarm Patient Tobacco Use Status: Never used Tobacco e-Cigarette/Vaping Use: Never Used service: No Current occupational status: retired Current occupation: rt handed Review of Systems Const Denies chills and Denies fever(s) Card Denies chest pain, Denies dyspnea and Denies dyspnea on exertion Resp Denies cough, Denies dyspnea and Denies dyspnea on exertion GI Denies hematochezia and Denies change in bowel habits Denies hematuria Musc Denies back pain and Denies limited range of motion Neuro Denies focal weakness and Denies convulsions Psych Denies depression and Denies mood swings Physical Exam Vital Signs: Last Vital Signs Pulse 91 05/04/25 13:44 BP 166/85 H 05/04/25 13:44 BMI result Body Mass Index 28.9 Const General: comfortable and no acute distress Orientation/consciousness: patient oriented x3 Neck Neck: Yes no lymphadenopathy Resp Auscultation: clear to auscultation bilaterally Cardio Rhythm: regular rhythm GI Other: Some tenderness on the umbilicus inferiorly, vague protuberant, but I am unable to feel an obvious fascial defect Palpation (GI): Soft to palpation, nontender and no guarding Neuro General: patient oriented x3 Assessment & Plan Assessment & Plan (1) Umbilical hernia: Code(s): K42.9 - Umbilical hernia without obstruction or gangrene Category: Medical Plan: She has a question of an umbilical hernia. She describes pain on this area and a ?bulge? that is reducible. I am unable to feel the fascial defect because she does have thick amount of subcutaneous fat. I am going to order for a CAT scan to evaluate this area umbilical pain. She says that she is interested in umbilical hernia repair if this is confirmed on her CAT scan. I will discuss the CAT scan findings with her. She is otherwise doing very well after her sigmoid resection for recurrent diverticulitis. Orders: Orders CT abdomen pelvis wo IV con Today K42.9 - Umbilical hernia without obstruction or gangrene Coding Level of Care Code Est Pt Level 3 (51455) Diagnoses Umbilical hernia K42.9
[2025-05-04 13:44] VITALS: BP 166/85; PULSE 91; BMI 28.9
--- OUTSIDE RECORDS SUMMARY | 2025-05-04 18:09 | XMS_ITS | Encounter Summary ---
Author Organization [employer] Address [address] [facility] [address]t [place] [address] Care Team Providers Care Fabrication Welder Name Role Phone Name, Martín MARKS Primary Care Provider [phone] Reason for Visit * Reason Onset Date Comments Hospital Follow-up 04/12/2024 Encounter Details Date Type Department Care Team ([facility] st Contact Info) Description 04/12/2024 Telephone [facility] MEDICINE [address] [place], [place] [phone] Name, MD Martín [address] [place] [address] Hospital Follow-up Social History Tobacco Use Types [...] requesting a HDF appt. [place] [facility] [place] of admission: 04/07/24 Discharge date: 04/12/24 Diagnosed: intestinal infection *Send message to [place] Clinical Care Coordinators documented in this encounter Plan of Treatment Upcoming Encounters Date Type Department Care Team (Late st Contact Info) Description 09/09/2025 1:30 PM EDT Office Visit [facility] ADULT DENTAL [address] [place] [address] Kasia Maldonado [address] [place] [address] documented as of this encounter Visit Diagnoses Not on filedocumented in this encounter Additional Health Concerns Assessment Noted Time PHQ-9 Depression Total Score: 22 024 11:54 AM EST documented as of this encounter Care Teams Fabrication Welder Relationship Specialty Start Date End Date Name, MD Martín [address] [place] [address] PCP - General Family Medicine 07/18/15 documented as of this encounter
--- OUTSIDE RECORDS SUMMARY | 2025-05-04 18:09 | XMS_ITS | Encounter Summary ---
Author Organization [facility] Address [address] [facility] [address]t [place] [address] Care Team Providers Care Farm Agent Name Role Phone Name, Martín MARKS Primary Care Provider [phone] Encounter Details Date Type Department Care Team (Latest Contact Info) Description 11/01/2021 Abstract [facility] CONVERSIONS Dental, Provider, DDS Social History [...] Description 09/09/2025 1:30 PM EDT Office Visit [facility] ADULT DENTAL [address] [place] [address] Erica, Kasia [address] [place] [address] documented as of this encounter Visit Diagnoses Not on filedocumented in this encounter Care Teams Farm Agent Relationship Specialty Start Date End Date Name, MD Martín [address] [place] [address] PCP - General Family Medicine 07/18/15 documented as of this encounter
--- OUTSIDE RECORDS SUMMARY | 2025-05-04 18:09 | XMS_ITS | Encounter Summary ---
Author Organization [employer] [facility] Address [address] [facility] 7t [place] [address] Care Team Providers Care Shelter Director Name Role Phone Name, Martín MARKS Primary Care Provider [phone] Encounter Details Date Type Department Care Team [...] Description 09/09/2025 1:30 PM EDT Office Visit [facility] ADULT DENTAL [address] [place] [address] Erica, Kasia [address] [place] [address] documented as of this encounter Visit Diagnoses Not on filedocumented in this encounter Care Teams Shelter Director Relationship Specialty Start Date End Date Name, MD Martín [address] [place] [address] PCP - General Family Medicine 07/18/15 documented as of this encounter
--- OUTSIDE RECORDS SUMMARY | 2025-05-04 18:09 | XMS_ITS | Clinical Summary ---
Author Organization [employer] Address [address] [facility] 7t [place] [address] Care Team Providers Care Needle Valve Operator Name Role Phone Name, Martín MARKS Primary Care Provider [phone] Allergies No known active allergies Medications budesonide [...] MANANA 90 tablet 1 02/09/20 25 Active atorvastatin (Lipitor) 20 MG tablet Take 1 tablet (20 mg) by mouth Once per day. 30 tablet 11 02/19/20 25 Active lisinopril 5 MG tablet Take 1 tablet (5 mg) by mouth Once per day. 30 tablet 11 03/15/20 25 026 Active Diclofenac Sodium (Voltaren Arthritis Pain) 1 % gelIndications: Chronic pain of right knee APPLY 2 GRAMS TO THE AFFECTED JOINTS ONCE A DAY 100 g 2 04/21/20 25 Active zolpidem (Ambien) 10 MG tabletIndicatio ns:Insomnia, unspecified type TAKE 1 TABLET BY MOUTH AT BEDTIME NEEDED FOR SLEEP 30 tablet 04/21/20 25 Active etodolac (Lodine) 200 MG capsuleIndicati ons:Chronic pain of right knee,Chronic right hip pain TAKE 1 CAPSULE BY MOUTH TWICE A DAY 60 capsule 1 05/03/20 25 Active Diclofenac Sodium (Voltaren Arthritis Pain) 1 % gelIndications: Chronic pain of right knee Apply to affected joints once a day 50 g 2 02/15/20 25 025 Discontinued(Re order (will not trigger notification to Pharmacy)) etodolac (Lodine) 200 MG capsuleIndicati ons:Chronic pain of right knee,Chronic right hip pain TAKE 1 CAPSULE BY MOUTH TWICE A DAY 60 capsule 1 03/07/20 25 025 Discontinued zolpidem (Ambien) 10 MG tabletIndicatio ns:Insomnia, unspecified type TAKE 1 TABLET BY MOUTH AT BEDTIME NEEDED FOR SLEEP 30 tablet 03/22/20 25 025 Discontinued(Re order (will not trigger notification to Pharmacy)) Active Problems Problem Noted Date Diagnosed Date PETER on CPAP 02/16/2025 Osteoarthritis of left shoulder 03/02/2024 Left hand pain 03/02/2024 Hospital discharge follow-up 03/02/2024 Overview (03/02/2024): D/C from [facility]--readmitted to x 1 day-biotics discharge p.o. antibiotics [...] Ascending aorta dilatation 06/18/2017 Cocaine abuse 07/19/2016 Asthma 11/17/2015 Seasonal allergic rhinitis 11/17/2015 Carpal tunnel syndrome 10/18/2015 Chronic insomnia 08/23/2011 Major depressive disorder 08/23/2011 Anxiety state 08/23/2011 Resolved Problems Problem Noted Date Diagnosed Date Resolved Date Drowsy 05/20/2018 11/20/2022 Morning headache 05/20/2018 11/20/2022 Tired 05/20/2018 11/20/2022 Snoring 03/27/2016 02/16/2025 Encounters Date Type Department Care Team Description 05/03/2025 Refill [facility] [address] [place] [address] NameMartín MD Chronic pain of right knee; Chronic right hip pain 04/21/2025 Refill [facility] [address] [place] [address] Martín Pittman MD Chronic pain of right knee; Insomnia, unspecified type 03/22/2025 Refill [facility] [address] [place] [address] Martín Pittman MD Insomnia, unspecified type 03/10/2025 Telephone [facility] [address] [place] [address] Martín Pittman MD Medication Question 03/08/2025 1:00 PM EDT Office Visit [facility] [address] [place] [address] Kasia Maldonado Localized gingival recession, minimal (Primary Dx); Missing teeth, acquired; Dental plaque 03/07/2025 Telephone [facility] [address] [place] [address] Martín Pittman MD 03/06/[address] [address] Martín Pittman MD Chronic pain of right knee; Chronic right hip pain 03/01/2025 9:30 AM EDT Telemedicine [address] [address] Lupe Cosme RN Essential hypertension 03/01/2025 Travel 02/28/[address] [address] Martín Pittman MD VNA; Telephone Nurse Visit 02/22/2025 Refill [facility] [address] [place] [address] Martín Pittman MD Insomnia, unspecified type 02/20/[address] [address] Martín Pittman MD Insomnia, unspecified type 02/17/2025 Results Follow-Up [address] [address] Martín Pittman MD Lipid Panel, Standard 02/14/2025 1:30 PM EDT Office Visit [address] [address] Martín Pittman MD Essential hypertension (Primary Dx); Chronic pain of right knee; Screening for cholesterol level; Insomnia, unspecified type 02/14/2025 Travel 02/11/2025 Telephone [facility] [address] [place] [address] Marcelle Jeter MA chart prep 02/05/[address] [address] Martín Pittman MD Allergic rhinitis, unspecified seasonality, unspecified trigger from Last 3 Months Immunizations Immunization Administration [...] Sign Reading Time Taken Comments Blood Pressure 126/78 03/08/2025 12:54 PM EDT Pulse 93 02/14/2025 1:20 PM [...] Office Visit [facility] [address] [place] [address] Erica, Kasia [address] [place] [address] Health Maintenance Due Date Last Done Comments CT Colonography 1950 FIT DNA/Cologuard 1950 FOBT 1950 Sigmoidoscopy 1950 Alcohol/Substance Use Screening 1964 RSV Patients and Patients Aged 60 years or older (1 - Risk 50-74 years 1-dose series) 2002 Zoster Vaccines (1 of 2) 2002 FIT 07/15/2023 07/15/2022, 07/15/2022 Depression Monitoring 10/04/2024 04/06/2024, 024 Dental X-Ray: Full Mouth 11/07/2024 11/06/2021 COVID-19 Vaccine ( season) 2025 01/02/2022, 01/02/2022, 10/30/2021, Additional history exists Influenza Vaccine (#1) 2025 01/30/2015, 2013 Dental Oral Exam 03/05/2025 09/02/2024, 10/2023, 08/12/2022 Dental X-Ray: Bitewings 09/03/2025 09/03/19 25, 06/24/2023, 08/12/2022 Dental Prophylaxis 09/07/2025 03/08/2025, 0 09/02/2024, 01/01/2024, Additional history exists SDOH Screening 02/14/2026 02/14/2025 Tobacco Screening 03/08/2026 03/08/2025 DTaP/Tdap/Td Vaccines (2 - Td or Tdap) 03/27/2026 03/27/2016 Mammogram 06/23/2026 06/23/2024, 01/0 11/2024, 03/30/2024, Additional history exists Colonoscopy 08/11/2028 08/12/2023, 03/31/2018 Colorectal Cancer Screening 08/11/2028 Lipid Panel 02/15/2030 02/15/2025, 03/0 12/2022, 10/30/2021, Additional history exists Hepatitis A Vaccines Aged Out 06/16/2023, 12/17/19 No longer eligible based on patient's age [...] Procedure Name Priority Date/Time Associated Diagnosis Comments ORAL HYGIENE INSTRUCTIONS Routine 03/08/2025 1:00 PM EDT Localized gingival recession, minimal Missing teeth, acquired Dental plaque CASE PRESENTATION, DETAILED AND EXTENSIVE TREATMENT PLANNING Routine 03/08/2025 1:00 PM EDT Localized gingival recession, minimal Missing teeth, acquired Dental plaque TOPICAL APPLICATION OF FLUORIDE VARNISH Routine 03/08/2025 1:00 PM EDT Localized gingival recession, minimal Missing teeth, acquired Dental plaque PROPHYLAXIS - ADULT Routine 03/08/2025 1 :00 PM EDT Localized gingival recession, minimal Missing teeth, acquired Dental plaque LIPID PANEL, STANDARD Routine 02/15/2025 11:43 AM EDT Screening for cholesterol level BITEWINGS - 4 RADIOGRAPHIC IMAGES Routine 09/02/2024 2:00 PM EDT Dental plaque Localized gingival recession, minimal Missing teeth, acquired PERIODIC ORAL EVALUATION - ESTABLISHED PATIENT Routine 09/02/2024 2:00 PM EDT BI MAMMOGRAM DIAGNOSTIC TOMOSYNTHESIS RIGHT Routine 06/23/2024 9:00 AM EST HEPATITIS C ANTIBODY Routine 05/10/2024 1:37 PM EST HM COLONOSCOPY Routine 08/12/2023 FECAL IMMUNOCHEMICAL Routine 07/15/2022 from Last 3 Months or Most Recently Relevant to Health Maintenance Results * (ABNORMAL) Lipid Panel, Standard (02/15/2025 11:43 AM EDT) Triglycerides 214(H) <150 mg/dL [facility] Comment:Desirable Triglyceri de: less than 150 mg/dLBorderline High Triglyceride 150-199 mg/dLHigh Triglyceride: 200-499 mg/dLVery High Triglyceride: greater than or equal to 5OO mg/dL Cholesterol 177 <200 mg/dL [facility] Comment:Desirable Cholestero l: less than 200 mg/dLBorderline High Cholesterol: 200-239 mg/dLHigh Cholesterol: greater than 239 mg/dL LDL Cholesterol Calculated 102(H) <100 mg/dL [facility] Comment:Desirable LDL: less than 100 mg/dLNear Optimal/Above Optimal LDL: 110- 129 mg/dLBorderline High LDL: 130-159 mg/dLHigh LDL: 160-189 mg/dLVery High LDL: greater than or equal to 190 mg/dL HDL Cholesterol 33(L) >40 mg/dL [facility] Comment:Desirable HDL: great er than 40 mg/dL Note: This HDL assay may give artificially low results in patients with liver disease. Blood Venous blood specimen / Unknown 02/15/2025 11:43 AM EDT 02/15/2025 1:32 PM EDT Martín Pittman MD LAB BLOOD ORDERABLES Final Resul t [facility] [address] [place] [phone] * BI Mammogram Diagnostic Tomosynthesis Right (06/23/2024 9:00 AM EST) Anatomical Region Laterality Modality Breast Right Mammography 06/23/2024 9:00 AM EST Narrative 06/23/2024 10:34 AM EST [facility] [address] [place] [address] Mammography Report Signed with Addraisa Patient: Wendie Faye MR #: [id number] : 1950 Acct:[id number] Age/Sex: 73 / F ADM Date: 06/23/24 Loc: HO.MAMMO Attending Dr: Tim Cifuentes MD Ordering Physician: Tim Cifuentes MD Results: Date of Service: 06/23/24 Follow Up: Procedure(s): MM tomosynthesis diagnostic RT Accession Number(s): [id number] cc: Tim Cifuentes MD; Name,Martín MARKS ADDENDUM [...] OV> 06/23/24 1030 DD/ 9 TD/TT: 06/23/24944 Sales Representative Consultant: Procedure Note Kirillter, Image - 07/02/2024 [facility] [address] [place], [place] [address] Mammography Report Signed with Addenda Patient: Wendie Faye [facility] #: [id number] : [id number]:[id number] Age/Sex: 73 / FADM Date: 06/23/24 Loc: HO.MAMMO Attending Dr: Tim Cifuentes MD Ordering Physician: Tim Cifuentesesults: Date of Service: 06/23/24Follow Up: Procedure(s): MM tomosynthesis diagnostic RT Accession Number(s): [id number] cc: Tim Cifuentes MD; Name,Martín MARKS ADDENDUM [...] 06/23/24 1030 DD/ 0900 TD/TT: 06/23/24 0945 Sales Representative Consultant: [facility] External Provider IMG BI PROCEDURES Edited Result - Final * Hepatitis C Ab (05/10/2024 1:37 PM EST) Hepatitis C Antibody Nonreactive Nonreactive [facility] Comment:Antibodies to HCV no t detected; does not exclude early acuteHCV infection. 05/10/2024 1:37 PM EST 05/10/2024 4:01 PM EST Generic External Data Provider LAB BLOOD ORDERAB LES Final Result [facility] [address] [place] [phone] * (ABNORMAL) Colonoscopy (08/12/2023) Colonoscopy Abnormal(A ) Normal Martín Name HEALTH MAINTENANCE Final Result * Fecal immunochemical (07/15/2022) Fecal Immunoassay Test (External) Negative Stool Rectal contents / Unknown Historical Provider LAB BODY FLUIDS AND STOOL S ORDERABLES Final Result from Last 3 Months or Most Recently Relevant to Health Maintenance Insurance [facility] USP OPTIONS (O D-SNP) YOON MARES [id number] [facility] [place] [place] Care Teams Needle Valve Operator Relationship Specialty Start Date End Date Name, MD Martín [address] [place] [address] PCP - General Family Medicine 07/18/15
--- OUTSIDE RECORDS SUMMARY | 2025-05-04 18:09 | XMS_ITS | Encounter Summary ---
Author Organization [employer] Address [address] [facility] 7t [place] [address] Care Team Providers Care Compacting Machine Operator/Tender Name Role Phone Name, Martín MARKS Primary Care Provider [phone] Reason for Visit * Reason Comments Med Refill Encounter Details Date Type Department Care Team ([facility] st Contact Info) Description 05/24/2023 Refill [facility] [address] [place], [place] [phone] Name, MD Martín [address] [place] [address] Allergic rhinitis, unspecified seasonality, unspecified trigger Social [...] Description 09/09/2025 1:30 PM EDT Office Visit [facility] [address] [place] [address] Kasia Maldonado [address] [place] [address] documented as of this encounter Visit Diagnoses Diagnosis Allergic rhinitis, unspecified seasonality, unspecified trigger documented in this encounter Care Teams Compacting Machine Operator/Tender Relationship Specialty Start Date End Date Name, MD Martín [address] [place] [address] PCP - General Family Medicine 07/18/15 documented as of this encounter
--- OUTSIDE RECORDS SUMMARY | 2025-05-04 18:09 | XMS_ITS | Encounter Summary ---
Author Organization [employer] Address [address] [place] [address] [address] [place] [address] Care Team Providers Care Doors Prefitter Name Role Phone Name, Martín MARKS Primary Care Provider [phone] Reason for Visit * Reason Onset Date Comments Med Refill 10/21/2022 Encounter Details Date Type Department Care Team (Late st Contact Info) Description 10/21/2022 Refill [facility] [address] [place], [place] [phone] Name, MD Martín [address] [place] [address] Insomnia, unspecified type Social History Tobacco Use [...] Description 09/09/2025 1:30 PM EDT Office Visit [facility] [address] [place] [address] Long Maldonadoaris [address] [place] [address] documented as of this encounter Visit Diagnoses Diagnosis Insomnia, unspecified type documented in this encounter Care Teams Doors Prefitter Relationship Specialty Start Date End Date Name, MD Martín [address] [place] [address] PCP - General Family Medicine 07/18/15 documented as of this encounter
--- OUTSIDE RECORDS SUMMARY | 2025-05-04 18:09 | XMS_ITS | Encounter Summary ---
Author Organization [employer] Address [address] [place] [address] [address] [address] Care Team Providers Care Principal Systems Architect Name Role Phone Name, Martín MARKS Primary Care Provider [phone] Encounter Details Date Type Department Care Team (Late Contact Info) Description 10/28/2022 Abstract [facility] [address] [place] [address] Name, MD Martín [address] [place] [address] Social History Tobacco Use Types Packs/Day Years [...] Department Care Team (Late Contact Info) Description 09/09/2025 1:30 PM EDT Office Visit [facility] [address] [place] [address] EricaLongKasia [address] [place] [address] documented as of this encounter Visit Diagnoses Not on filedocumented in this encounter Care Teams Principal Systems Architect Relationship Specialty Start Date End Date NameMartín MD [address] [place] [address] PCP - General Family Medicine 07/18/15 documented as of this encounter
--- OUTSIDE RECORDS SUMMARY | 2025-05-04 18:09 | XMS_ITS | Encounter Summary ---
Author Organization [employer] Address [address] [facility] 7t [place] [address] Care Team Providers Care Elementary Education Teacher Name Role Phone Name, Martín MARKS Primary Care Provider [phone] Reason for Visit * Reason Comments Med Refill Encounter Details Date Type Department Care Team ([facility] st Contact Info) Description 11/26/2024 Refill [facility] [address] [place], [place] [phone] Name, MD Martín [address] [place] [address] Insomnia, unspecified type Social History Tobacco Use [...] Description 09/09/2025 1:30 PM EDT Office Visit [facility] [address] [place] [address] EricaKasia [address] [place] [address] documented as of this encounter Visit Diagnoses Diagnosis Insomnia, unspecified type documented in this encounter Additional Health Concerns Assessment Noted Time PHQ-9 Depression Total Score: 22 024 11:54 AM EST documented as of this encounter Care Teams Elementary Education Teacher Relationship Specialty Start Date End Date Name, MD Martín [address] [place] [address] PCP - General Family Medicine 07/18/15 documented as of this encounter
--- OUTSIDE RECORDS SUMMARY | 2025-05-04 18:09 | XMS_ITS | Encounter Summary ---
Author Organization [email or web address] [facility] Address [address] [place] [address] [address] [place] [address] Care Team Providers Care Front Line Supervisor Name Role Phone Name, Martín MARKS Primary Care Provider [phone] Reason for Visit * Reason Comments Med Refill Encounter Details Date Type Department Care Team (Late st Contact Info) Description 07/26/2022 Refill [facility] [address] [place], [place] [phone] Name, MD Martín [address] [place] [address] Insomnia, unspecified type Social History Tobacco Use [...] Description 09/09/2025 1:30 PM EDT Office Visit [facility] [address] [place], [place] [phone] Erica, Kasia [address] [place] [address] documented as of this encounter Visit Diagnoses Diagnosis Insomnia, unspecified type documented in this encounter Care Teams Front Line Supervisor Relationship Specialty Start Date End Date Name, MD Martín [address] [place] [address] PCP - General Family Medicine 07/18/15 documented as of this encounter
--- OUTSIDE RECORDS SUMMARY | 2025-05-04 18:09 | XMS_ITS | Encounter Summary ---
Author Organization [employer] Address [address] [facility] 7t [place] [address] Care Team Providers Care Recreational Leader Name Role Phone Name, Martín MARKS Primary Care Provider [phone] Encounter Details Date Type Department Care Team (Late st Contact Info) Description 03/25/2023 Orders Only [facility] [address] [place], [place] [phone] Name, MD Martín [address] [place] [address] Social History Tobacco Use Types Packs/Day Years [...] Description 09/09/2025 1:30 PM EDT Office Visit [facility] [address] [place] [address] Erica, Kasia [address] [place] [address] documented as of this encounter Visit Diagnoses Not on filedocumented in this encounter Care Teams Recreational Leader Relationship Specialty Start Date End Date Name, MD Martín [address] [place] [address] PCP - General Family Medicine 07/18/15 documented as of this encounter
--- OUTSIDE RECORDS SUMMARY | 2025-05-04 18:09 | XMS_ITS | Encounter Summary ---
Author Organization [employer] [facility] Address [address] [facility] 7t [place] [address] Care Team Providers Care Cloth Boil Off Machine Operator Name Role Phone Name, Martín MARKS Primary Care Provider [phone] Encounter Details Date Type Department Care Team (Latest Contact Info) Description 11/06/2020 Abstract [facility] CONVERSIONS Dental, Provider, DDS Social [...] Description 09/09/2025 1:30 PM EDT Office Visit [facility]ULT [facility] [address] [place] [address] Erica, Kasia [address] [place] [address] documented as of this encounter Visit Diagnoses Not on filedocumented in this encounter Care Teams Cloth Boil Off Machine Operator Relationship Specialty Start Date End Date Name, MD Martín [address] [place] [address] PCP - General Family Medicine 07/18/15 documented as of this encounter
--- OUTSIDE RECORDS SUMMARY | 2025-05-04 18:09 | XMS_ITS | Encounter Summary ---
Author Organization [employer] Address 75 [facility] 7t [place] [address] Care Team Providers Care Wiping Rag Washer Name Role Phone Name, Martín MARKS Primary Care Provider [phone] Encounter Details Date Type Department Care Team ([facility] st Contact Info) Description 03/07/2023 Orders Only [facility] [address] [place], [place] [phone] Geno Malave LPN Social History Tobacco Use [...] Description 09/09/2025 1:30 PM EDT Office Visit [facility] [address] [place] [address] Erica, Kasia [address] [place] [address] documented as of this encounter Procedures Procedure Name Priority Date/Time Associated Diagnosis Comments BI MAMMOGRAM SCREENING TOMOSYNTHESIS BILATERAL Routine 03/11/2023 2:45 PM EDT documented in this encounter Results * BI Mammogram Screening Tomosynthesis Bilateral (03/11/2023 2:45 PM EDT) Anatomical Region Laterality Modality Breast Bilateral Mammography 03/11/2023 2:45 PM EDT Narrative 03/29/2023 1:[address] [place] [address] Mammography Report Signed Patient: Wendie Faye MR #: [id number] : 1950 Acct:[id number] Age/Sex: 72 / F ADM Date: 03/11/23 Loc: HO.MAMMO Attending Dr: Martín Pittman MD Ordering Physician: Martín Pittman MD Results: 1Negative Date of Service: 03/11/23 Follow Up: 1 Year From Orig inal Mammogram Procedure(s): MM tomosynthesis screening BI Accession Number(s): [id number] cc: Martín Pittman MD EXAMINATION: MM SCREENING [...] in OV> 03/29/23 1329 DD/ 1445 TD/TT: Quality Assurance Manager: Procedure Note Donotuseinterpreter, Image - 03/29/2023 [facility] [address] [place] [address] Mammography Report Signed Patient: Wendie Faye MMR #: [id number] : 3Acct:[id number] Age/Sex: 72 / FADM Date: 03/11/23 Loc: HAFSAO Attending Dr: Mratín Pittman MD Ordering Physician: Martín Pittman MDResults: 1Negative Date of Service: 03/11/23Follow Up: 1 Year From Orig ina Mammogram Procedure(s): MM tomosynthesis screening BI Accession Number(s): [id number] cc: Martín Pittman MD EXAMINATION: MM SCREENING [...] in OV> 03/29/23 1329 DD/ 1445 TD/TT: Quality Assurance Manager: Martín Pittman MD IMG BI PROCEDURES Edited Result - Final documented in this encounter Visit Diagnoses Not on filedocumented in this encounter Care Teams Wiping Rag Washer Relationship Specialty Start Date End Date Name, MD Martín [address] [place] [address] PCP - General Family Medicine 07/18/15 documented as of this encounter
--- OUTSIDE RECORDS SUMMARY | 2025-05-04 18:09 | XMS_ITS | Encounter Summary ---
Author Organization [employer] Address [address] [facility] 7t [place] [address] Care Team Providers Care Manager News Name Role Phone Name, Martín MARKS Primary Care Provider [phone] Reason for Visit * Reason Onset Date Comments Call Back Request 07/11/2023 Encounter Details Date Type Department Care Team ([facility] st Contact Info) Description 07/11/2023 Telephone [facility] [address] [place], [place] [phone] Name, MD Martín [address] [place] [address] Call Back Request Social History Tobacco Use [...] T/C to pt. For below message through [place] - [id number], pt. States she has already apt. For CT scan, pt. Is all set right now. Advised to give call to [facility] if any question or concerns. * Telephone Encounter - hSaron Langford - 07/11/2023 11:45 AM EST Tc from pt requesting order for ct scan on left hand stated talk with PCP about this please contactpt for clarifications. documented in this encounter Plan of Treatment Upcoming Encounters Date Type Department Care Team (Late st Contact Info) Description 09/09/2025 1:30 PM EDT Office Visit [facility] [address] [place] [address] Erica, Kasia [address] [place] [address] documented as of this encounter Visit Diagnoses Not on filedocumented in this encounter Care Teams Manager News Relationship Specialty Start Date End Date Name, MD Martín [address] [place] [address] PCP - General Family Medicine 07/18/15 documented as of this encounter
--- OUTSIDE RECORDS SUMMARY | 2025-05-04 18:09 | XMS_ITS | Patient Health Record ---
Author Organization [employer] Address [address] [place] [address] Care Team Providers Care Traveling Missionary Name Role Phone Jaylon Matias Unavailable [phone] Reason For Referral No Information Plan Of Treatment No Information
--- OUTSIDE RECORDS SUMMARY | 2025-05-04 18:09 | XMS_ITS | Encounter Summary ---
Author Organization [employer] Address [address] [facility] 7t [place] [address] Care Team Providers Care Oracle Application Consultant Name Role Phone Name, Martín MARKS Primary Care Provider [phone] Reason for Visit * Reason Onset Date Comments Med Refill 07/22/2023 Encounter Details Date Type Department Care Team ([facility] st Contact Info) Description 07/22/2023 Telephone [facility] [address] [place], [place] [phone] Name, MD Martín [address] [place] [address] Med Refill Social History Tobacco Use Types [...] 10 MG tablet To be sent to: [facility]/pharmacy [address] [place] [address] documented in this encounter Plan of Treatment Upcoming Encounters Date Type Department Care Team (Late st Contact Info) Description 09/09/2025 1:30 PM EDT Office Visit [facility] [address] [place] [address] Erica, Kasia [address] [place] [address] documented as of this encounter Visit Diagnoses Not on filedocumented in this encounter Care Teams Oracle Application Consultant Relationship Specialty Start Date End Date Name, MD Martín [address] [place] [address] PCP - General Family Medicine 07/18/15 documented as of this encounter
--- OUTSIDE RECORDS SUMMARY | 2025-05-04 18:09 | XMS_ITS | Encounter Summary ---
Author Organization [employer] Address [address] [facility] 7t [place] [address] Care Team Providers Care Auditor In Charge Name Role Phone Name, Martín MARKS Primary Care Provider [phone] Reason for Visit * Reason Comments Med Refill Encounter Details Date Type Department Care Team ([facility] st Contact Info) Description 05/03/2025 Refill [facility] [address] [place], [place] [phone] Name, MD Martín [address] [place] [address] Chronic pain of right knee; Chronic right hip pain Social History Tobacco Use Types Packs/Day Years [...] [facility] [address] [place] [address] Erica, Kasia [address] [place] [address] documented as of this encounter Visit Diagnoses Diagnosis Chronic pain of right knee Chronic right hip pain documented in this encounter Additional Health Concerns Assessment Noted Time PHQ-9 Depression Total Score: 22 024 11:54 AM EST documented as of this encounter Care Teams Auditor In Charge Relationship Specialty Start Date End Date Name, MD Martín [address] [place] [address] PCP - General Family Medicine 07/18/15 documented as of this encounter
--- OUTSIDE RECORDS SUMMARY | 2025-05-04 18:09 | XMS_ITS | Encounter Summary ---
Author Organization [employer] Address [address] [facility] 7t [place] [address] Care Team Providers Care Soft Sugar Cutter Name Role Phone Name, Martín MARKS Primary Care Provider [phone] Reason for Visit * Reason Comments Med Refill Encounter Details Date Type Department Care Team ([facility] st Contact Info) Description 04/09/2023 Refill [facility] [address] [place], [place] [phone] Name, MD Martín [address] [place] [address] Social History Tobacco Use Types Packs/Day Years [...] Description 09/09/2025 1:30 PM EDT Office Visit [facility] [address] [place] [address] EricaLongKasia [address] [place] [address] documented as of this encounter Visit Diagnoses Not on filedocumented in this encounter Care Teams Soft Sugar Cutter Relationship Specialty Start Date End Date Name, MD Martín [address] [place] [address] PCP - General Family Medicine 07/18/15 documented as of this encounter
--- OUTSIDE RECORDS SUMMARY | 2025-05-04 18:09 | XMS_ITS | Encounter Summary ---
Author Organization [employer] Address [address] [facility] 7t [place] [address] Care Team Providers Care Bridge Ironworker Helper Name Role Phone Name, Martín MARKS Primary Care Provider [phone] Reason for Visit * Reason Comments Med Refill Encounter Details Date Type Department Care Team ([facility] st Contact Info) Description 01/21/2024 Refill [facility] [address] [place], [place] [phone] Name, MD Martín [address] [place] [address] Insomnia, unspecified type Social History Tobacco Use [...] Description 09/09/2025 1:30 PM EDT Office Visit [facility] [address] [place] [address] Erica, Kasia [address] [place] [address] documented as of this encounter Visit Diagnoses Diagnosis Insomnia, unspecified type documented in this encounter Additional Health Concerns Assessment Noted Time PHQ-9 Depression Total Score: 10 024 1:21 PM EDT documented as of this encounter Care Teams Bridge Ironworker Helper Relationship Specialty Start Date End Date Name, MD Martín [address] [place] [address] PCP - General Family Medicine 07/18/15 documented as of this encounter
--- OUTSIDE RECORDS SUMMARY | 2025-05-04 18:09 | XMS_ITS | Data Portability ---
Author Organization [facility], [facility] Address [address] [place] [address] Care Team Providers Care Document Control Associate Name Role Phone HIM CCA OTHER Unavailable Primary Care Provider Assessment Encounter Date Assessment Date Assessment LastModified by Organization Details LastModified Time 03/23/2024 03/23/2024 As noted, we avi humphrey called to see this patient regarding concerns of covid symptoms._ Evaluation in the field was performed by my clinical trials nurse colleague, as noted above, I provided real-time direction and supervision for this visit. The evaluation revealed same. Impression: 73yo/f with hx of mild asthma, HTN, referred for evaluation of 4 days of covid symptoms. Pt is 73yo/f, has had multiple prior episodes of covid, never hospitalized or on paxlovid. Had multiple sick contacts with same symptoms, over the last 4 days developed nonproductive cough, mild headache, facial fullness/sinus pressure, rhinorrhea, sore throat, bilateral anterior rib pain isolated to coughing. Some mild loose stool. Seen by medic in home she is awake, alert, well appearing, in no distress. Exam is very re-assuring, lungs are CTAB without wheezing/crackles /rhonchi. LE without edema. She is ambulating without any increased work of breathing or respiratory distress. No associated chest pain or pressure that is not isolated to coughing, no associated neurologic symptoms. Denies other ROS. Is primarily interested in symptomatic relief from cough. Plan: Pt is 4 days into symptomatic covid illness, tested positive with medic today, negative for flu or strep. Lungs are clear and breathing comfortably, ambulating comfortably. Rest of exam benign. Tolerating PO, otherwise at baseline. She is primarily interested in assistance with her cough. She has not tried her albuterol inhaler yet, has not needed it during this episode, no dyspnea or other chest discomfort. Advised to try albuterol and other OTC cough medications such as robitussin at this time. Pt was offered paxlovid but declined. She feels comfortable continuing to observe symptoms at home and reach out immediately with any acute worsening or change in symptoms, otherwise followup with PMD in 24-48 hours for recheck. I have a lower suspicion at this time based on her re-assuring evaluation for an occult emergency medical condition such as ACS, PE, aortic dissection, AAA, mediastinitis, sepsis. Primary care, consider followup to symptom resolution, CXR as needed. Disposition: We discussed the diagnostic uncertainty of home visits and the risk associated with this. In this case, the patient and I felt this to be an acceptable and reasonable amount of risk given the benefit of avoiding an ED visit. We discussed the need to seek care urgently/emergent ly in the setting of any new or worsening serious symptoms Not available 03/23/2024 11:37:51 07/14/2024 07/14/2024 Impression: 73yo/f referred for assistance with prescriptions after being diagnosed with diverticulitis. Patient is 73yo/f, was in [place] and seen in ED 3 days ago. Was diagnosed with diverticulitis, has discharge paperwork with summary of labs and CT A/P, recommended starting augmentin and symptomatic medications and outpatient followup. She was unable to fill the prescriptions, is calling for assistance with rx. Seen by medic in the home, patient is awake, alert, in no distress. She states her symptoms are the same since her initial evaluation, not worse but not better. No associated fevers/chills, has nausea occasionally but tolerating PO. No bloody stools, hematemesis. No other systemic symptoms of illness. Denies other ROS. On medic exam patient is in no distress, abdomen is soft with mild diffuse ttp, no peritoneal signs. Vitals WNL. Plan: Discussed at length, patient with no fevers and no worsening abdominal pain, she is tolerating PO. Discussed signs and symptoms of complications of diverticulitis such as perforation or abscess. Has re-assuring exam and vitals, patient would like to stay at home with trial of medications and PMD followup which I believe is reasonable. Given strict instructions to seek care immediately with any acute worsening or change in symptoms which she understands. Discharged from visit with mandatory timed followup instructions and strict return precautions reviewed. Primary care, consider 24-48 hour recheck. Disposition: We discussed the diagnostic uncertainty of home visits and the risk associated with this. In this case, the patient and I felt this to be an acceptable and reasonable amount of risk given the benefit of avoiding an ED visit. We discussed the need to seek care urgently/emergent ly in the setting of any new or worsening serious symptoms [id number] Not available 07/14/2024 11:34:51 Plan of Treatment Reminders Order Date Submit Date Provider Last Modified By Organization Details Last Modified Time Details Appointments None recorded. Lab rapid SARS CoV 2 Ag, QL IA, respiratory specimen 2023 024 [email or web address] [address] [facility], [address] [place] [address], [id number] 4 11:31:19 rapid flu (A+B) 2023 024 [email or web address] [facility], [address] [place] [address], [id number] 4 11:31:18 rapid strep group A, throat 2023 024 [email or web address] [facility], [address] [place] [address], [id number] 4 11:31:45 Referral None recorded. Procedures None recorded. Surgeries None recorded. Imaging None recorded. Medication Orders amoxicillin 875 mg-potassiu m clavulanate 125 mg tablet [address] [facility]/Pharmacy #[id number], [address] [place], [address], 5 11:28:09 dicyclomine 10 mg capsule [address] [facility]/Pharmacy #[id number], [address] [place], [address], 5 11:28:44 promethazin e 12.5 mg tablet [address] [facility]/Pharmacy #[id number], [address] [place], [address], 5 11:29:58 Patient TargetsNo targets recorded. Patient InstructionsNo instructions recorded. Reason for Referral None Reported. Results Created Date Observation Date Name Description Value Unit Range Abnormal Flag Note LastModifiedBy Organization Detail LastModifiedTime Result Notes None recorded. Medical Equipment None Reported. Allergies No known drug allergies Medications Name Sig Start Date Stop Date Status Note LastModified by Organization Details LastModified Time erythromycin 500 mg tablet TAKE 2 TABLETS AT 1 PM, AT 2 PM, AND AT 11 PM THE DAY PRIOR TO THE PROCEDURE active Not Available Not Available No t Available promethazine 12.5 mg tablet TOME ELISE TABLETA POR V A ORAL CUATRO VECES AL D A CUANDO SEA NECESARIO PARA LAS N USEAS active Not Available Not Available No t Available metronidazol e 500 mg tablet TOME 1 TABLETA POR V A ORAL LUCY VECES AL D A active Not Available Not Available No t Available amlodipine 5 mg tablet TOME ELISE TABLETA POR V A ORAL TODOS LOS D active Not Available Not Available No t Available pantoprazole 20 mg tablet,delay ed release TOME 1 TABLETA POR V A ORAL TODOS LOS D EN LA MA WENDIE active Not Available Not Available No t Available hydrocortiso ne 2.5 % topical cream with perineal applicator APPLY RECTALLY BEDTIME NEEDED FOR HEMORRHOIDS active Not Available Not Available Not Available methocarbamo l 750 mg tablet TAKE 1 TABLET (750 MG) BY MOUTH 3 TIMES DAILY FOR 10 DAYS. active Not Available Not Available No t Available amlodipine 10 mg tablet TOME ELISE TABLETA TODOS LOS D EN LA MA WENDIE active Not Available Not Available No t Available losartan 25 mg tablet TOME ELISE TABLETA POR V A ORAL TODOS LOS D active Not Available Not Available No t Available omeprazole 20 mg capsule,jamie yed release TOME 1 C PSULA POR V A ORAL TODOS LOS D active Not Available Not Available No t Available budesonide 0.5 mg/2 mL suspension for nebulization USE 1 VIAL VIA NEBULIZER EVERY DAY active Not Available Not Available No t Available ibuprofen 600 mg tablet TOME 1 TABLETA POR V A ORAL CADA 6 HORAS CUANDO SEA NECESARIO PARA EL DOLOR OR FEVER active Not Available Not Available No t Available levofloxacin 500 mg tablet TAKE 1 TABLET ORALLY DAILY FOR 7 DAYS active Not Available Not Available No t Available levofloxacin 750 mg tablet TAKE 1 TABLET BY MOUTH EVERY 24 HOURS active Not Available Not Available No t Available zolpidem 10 mg tablet TOME 1 TABLETA POR V A ORAL TODOS LOS D AL ACOSTARSE CUANDO SEA NECESARIO PARA DORMIR active Not Available Not Available Not Available neomycin 500 mg tablet PLEASE SEE ATTACHED FOR DETAILED DIRECTIONS active Not Available Not Available N ot Available albuterol sulfate HFA 90 mcg/actuatio n aerosol inhaler INHALE 2 PUFFS EVERY 6 HOURS IF NEEDED FOR WHEEZING. active Not Available Not Available No t Available dicyclomine 10 mg capsule TAKE 1 CAPSULE 3 TIMES A DAY BY ORAL ROUTE, FOR NEEDED FOR ABDOMINAL CRAMPING. active Not Available Not Available No t Available loratadine 10 mg tablet TOME 1 TABLETA POR V A ORAL TODOS LOS D EN LA MA WENDIE active Not Available Not Available No t Available amoxicillin 875 mg-potassium clavulanate 125 mg tablet TAKE 1 TABLET EVERY 8 HOURS BY ORAL ROUTE, FOR 10 DAYS. active Not Available Not Available No t Available Laxative (bisacodyl) 5 mg tablet,delay ed release TAKE 4 TABLETS BY MOUTH UPON AWAKENING FOLLOWED BY LARGE GLASS OF WATER active Not Available Not Available No t Available Gavilax 17 gram/dose oral powder TAKE DIRECTED BY MOUTH THE DAY BEFORE YOUR PROCEDURE. active Not Available Not Available N ot Available sodium,potas sium,mag sulfates 17.5 gram-3.13 gram-1.6 gram oral soln PLEASE SEE ATTACHED FOR DETAILED DIRECTIONS active Not Available Not Available N ot Available Vitals Date Recorded Body temperature Oxygen saturation Body weight Heart rate Body height Respiratory rate Systolic And Diastolic Provider Name and Address Organization Details Last Updated DateTime 5 98.5 [degF] 98 % 86825.4 32 g 90 /min 149.86 cm 16 /min 116/84 mm[Hg] Not Available [facility] 5 11:22:45 Date Recorded Body height Body temperature Oxygen saturation Body weight Heart rate Respiratory rate Systolic And Diastolic Provider Name and Address Organization Details Last Updated DateTime 4 149.86 cm 98.1 [degF] 96 % 13910.8 g 86 /min 18 /min 142/80 mm[Hg] Not Available [facility] - [facility] 4 11:25:27 Social History None recorded. Functional Status None recorded. Mental Status None recorded. Family History Nothing Reported. Medical History No medical history recorded. Gynecological HistoryNo gynecological history recorded. Obstetrics History GPAL:G 0 P 0 0 0 0 Past Encounters Encounter ID Performer Location Encounter Start Date Encounter Closed Date Diagnosis/Indication Diagnosis SNOMED-CT Code Diagnosis ICD10 Code Diagnosis IMO Codes Diagnosis Note [id number] Mitchell Zepeda MD [address] [phone] 03/23/2024 11:25:25 03/23/2024 12:43:22 Acute COVID-19 6395921108 U07.1 [id number] Mitchell Zepeda MD [address] [phone] 07/14/2024 11:22:40 07/14/2024 12:25:02 Diverticulitis 045484397 K57.92 Health Concerns Section Related Observation LastModified by Organization Detai ls LastModified Time None Recorded Concern Status LastModified by Organization Details LastModified Time None Recorded Advance Directives Directive None Recorded Payers Insurance Date Sequence Insurance Name Policy Number Policy Tobin Covered Member ID Tobin Member ID Guarantor Name 07/14/2024 1 [facility] - DOS ON OR AFTER 2022 - DUAL ELIGIBLE - USP OPTIONS AND ONE CARE (MEDICARE REPLACEMENT/AD VANTAGE - HMO) Wendie Eubanks Abdalla [id number] Wendie Zabalancourt Notes Date Note Type Note Provider Name and Address Organization Details Recorded Time 03/23/2024 text/html ROS as noted in the HPI HPI: Triage call for patient with chest pain. Confirms pain related to constant coughing.Day 4 with HOme test COVID taking only lemonade with honey and no noted relief not on Paxlovid. .................. .................. .................. .................. .................. .................. .................. ............... CRC Nurse Triage Notes (Alison Bain): Chief Complaints: Chest pain, Cough, Asthma PMH: Asthma, Anxiety Disorder, Hypertension Comments: CRC RN DID NOT NEED FURTHER INFO Surface Grinder Tender Organization Information for Leida Serra Business Legal Name: [employer]. Address: [address] [place] [address], Health Care Recruiter: Yordan Noonan MD [facility] No.: [id number] Surface Grinder Tender POC Test Results from Leida Serra Rapid COVID antigen (11:22:29) COVID: + Rapid strep test (11:22:30) Strep: - Rapid influenza antigen (11:22:34) Flu: - .................. .................. .................. .................. .................. .................. .................. ............... Surface Grinder Tender Note From Leida Serra: Sent to a call for a pt complaining of covid symptoms. SC8 arrived on scene, pt is alert and oriented, airway is patent. Pt states another family member has similar symptoms. Pt complains of frontal headache, bilateral sinus pain, runny nose (clear mucus), sore throat, dry cough, bilateral rib pain with cough, and body pain x 4 days. Pt also complains of diarrhea last night. Pt denies sob, n/v, abd pain, black/bloody stool, fever, or chills. Pt denies medication allergies. Pt has history of asthma, but denies needing to use her inhaler or nebulizer. Pt states she tested positive for covid via home test on Friday. Pt has been taking honey w/lemon for cough, and states cough is her worst symptoms. Pt states she has had covid three times, never been on Paxlovid, and never been hospitalized for covid.BP:142/80, P:86, RR:18, SpO2:96% RA, T:98.1; Head: bilateral sinus/forehead tenderness; Lung sounds: clear bilaterally; Abdomen: soft, non-tender, no distention; Back: unremarkable; Extremities: unremarkable; Skin: pink, warm ,dry; Rapid covid test: positive; rapid flu test: neg; Rapid strep test: neg; [facility] consulted; pt is offered Paxlovid. Pt declines Paxlovid and will continue symptomatic treatment. Pt advised to use albuterol inhaler, and will use otc cough/cold meds. Pt will follow up with [facility] if needed. Red flags discussed. Pt has no further questions. .................. .................. .................. .................. .................. .................. .................. ............... [facility] Consulted: Mitchell Zepeda .................. .................. .................. .................. .................. .................. .................. ............... Disposition: Nikolai Zepeda MD [address] [facility],[address], [place], [address], [facility] [employer] [facility] 03/23/2024 12:32:39 07/14/2024 text/html ROS as noted in the HPI HPI: Per notes pt seen for acute diverticulitis. Seen at outside ER in [facility] returned to Wendie Abdalla to triage below. Reports having appt with General surgeon on 07/23/24. Per pt was calling due to not being able to obtain Rx for medications at [place] due to flying back home that same day. Rx for amoxicillin-clavul anate (Augmentin) 500-125 MG tablet , - hyoscyamine (Levsin/SL) 0.125 MG SL tablet - promethazine (Phenergan) 12.5 MG tablet . Pt offered in office appt for follow up. Pt declines , states called in to request [facility]. Continues to have abd pain. No vomiting or severe diarrhea reported. Confirmed demographics and allergies. .................. .................. .................. .................. .................. .................. .................. ............... [facility] Nurse Triage Notes (Alison Bain): Patient Reports: Vague abdominal pain greater than 24 hours; Inability to tolerate foods, fluids or daily medications Denies: Sharp focal or diffuse abdominal pain Vomiting blood/coffee ground material Bloating, jaundice new onset with pain Nausea and vomiting greater than 2 hours with abdominal pain Tearing pain that radiates to back Food Impaction Constipation Diarrhea no blood in stool Nausea with or without vomiting Chief Complaints: Abdominal Pain PMH: Asthma, Anxiety Disorder, Hypertension PMH Reviewed at 07/14/2024:45 Allergies Reviewed at 07/14/2024:45 Comments: Visit to assess abd pain .................. .................. .................. .................. .................. .................. .................. ............... Surface Grinder Tender Note From Jay Mitchell: Dispatched to the call address for the female with abd pain. Pt states she was in [place] when the pain started, she went to the ED and was diagnosed with Diverticulitis. She was prescribed 3 medications but was not able to pick them up before having to catch the plane back. She states the pain is not any better or worse than when she went to the ED and she has an appt next week with her doctor. She denies chest pain, diff breathing/sob, or any other complaints. Pt was found sitting on living room chair, CAOx4, airway open and patent, breathing non labored, able to speak in full sentences, -JVD, -HEENT, skin PWD with good turgor, mucous membranes pink and moist, +CMSx4, -edema/swelling, abd soft slightly tender non distended, lungs CTA. C consulted. Scripts called into preferred pharmacy. Red flags discussed. ALL times are approx. .................. .................. .................. .................. .................. .................. .................. ............... [facility] Consulted: Mitchell Zepeda .................. .................. .................. .................. .................. .................. .................. ............... Disposition: Fulfilled Mitchell Zepeda MD [address] [place] [address],[facility], [place], [address], [employer] 07/14/2024 12:15:57 OBGyn Episode No OBEpisode recorded.
--- OUTSIDE RECORDS SUMMARY | 2025-05-04 18:09 | XMS_ITS | Encounter Summary ---
Author Organization [email or web address] [facility] Address [address] [place] [address] [address] [place] [address] Care Team Providers Care Scalp Specialist Name Role Phone Name, Martín MARKS Primary Care Provider [phone] Reason for Visit * Reason Comments Med Refill Encounter Details Date Type Department Care Team (Late st Contact Info) Description 09/25/2022 Refill [facility] [address] [place], [place] [phone] NameMartín MD [address] [place], [place] [phone] Insomnia, unspecified type Social History Tobacco Use [...] Description 09/09/2025 1:30 PM EDT Office Visit [facility] [address] [place], [place] [phone] Erica, Kasia [address] [place], [place] [phone] documented as of this encounter Visit Diagnoses Diagnosis Insomnia, unspecified type documented in this encounter Care Teams Scalp Specialist Relationship Specialty Start Date End Date Martín Pittman, MD [address] [place] [address] PCP - General Family Medicine 07/18/15 documented as of this encounter
== END 2025-05-04 14:05 | disposition home or self-care (01) ==
LOC: HO.HGS 13:37
PROVIDERS: PCP Internal Medicine Geriatric Medicine; Visit Provider Surgery
DX: K42.9 Umbilical hernia without obstruction or gangrene (principal)
CPT/HCPCS: 99213

== ENCOUNTER → 2025-05-04 13:36 | Outpatient (BNVA) | payer OTHER, SELFPAY | PROVIDERS: PCP Internal Medicine Geriatric Medicine; Visit Provider Surgery | DX: K42.9 Umbilical hernia without obstruction or gangrene (principal) | CPT/HCPCS: 99212 ==